=== PATIENT | male | born 1945 | race Caucasian/White ===

== ENCOUNTER → 2017-11-21 07:15 | Outpatient (CLI) | payer MEDICARE, OTHER, SELFPAY ==
--- NOTE | 2017-11-21 07:37 | MRI_ITS ---
STUDY: MRI RIGHT SHOULDER REASON FOR EXAM: Male, 72 years old. Pain TECHNIQUE: Standardized fat and water weighted pulse sequences were obtained in all 3 orthogonal planes. COMPARISON: X-ray November 12, 2017 FINDINGS: Full thickness tear of the distal supraspinatus tendon, sagittal series 6 image /. There is infraspinatus tendinosis with tendon thickening, but without a demonstrated tendon tear. There is subscapularis tendinosis with tendon thickening, and partial-thickness humeral surface distal tendon tear, series 3 images 10/20 through 1220. Normal teres minor tendon. Normal supraspinatus muscle. Normal infraspinatus muscle. Normal subscapularis muscle. Normal teres minor muscle. There is a small volume joint effusion of the glenohumeral joint. There is a cortical erosion at the insertion of the infraspinatus tendon. There is spurring of the lesser tuberosity. Normal biceps labral complex. There is tendinosis with thickening of the biceps tendon, and partial thickness tearing, series 3 images 8/20 through 16/20. Blunting of the labrum. Normal capsulo- ligamentous complex. Normal rotator interval. There is moderate osteoarthritis of the acromioclavicular articulations. There is a Type II morphology (curved) acromion, with a neutral orientation. There is moderate fluid distention of the subacromial bursa, consistent with moderate subacromial-subdeltoid bursitis. Normal visualized coracohumeral and coracoacromial ligaments. Normal quadrilateral space. Normal axillary space. Normal deltoid muscle. Normal trapezius muscle. MRI/Upper Ext Joint Only(Routine) IMPRESSION: Rotator cuff tear of the supraspinatus tendon. Tendinosis with partial tearing of the subscapularis. Tendinosis and partial tearing of the long head of the biceps tendon. Electronically Signed: Jesús Su MD at 9:00 EST , Service support ,
== END ==
PROVIDERS: Family Provider Family Medicine; PCP Family Medicine; Visit Provider Orthopaedic Surgery
DX: M75.101 Unspecified rotator cuff tear or rupture of right shoulder, not specified as traumatic (principal)
CPT/HCPCS: 73221

== ENCOUNTER 2017-12-13 06:06 | Emergency (ER) | payer MEDICARE, OTHER, SELFPAY ==
[2017-12-13 06:08] VITALS: BP 105/78; PULSE 73; RESP 16; TEMP 36.6; O2SAT 96; BMI 26.8
[2017-12-13] MEDS: diazePAM 5 MG Tablet PO (06:27)
--- NOTE | 2017-12-13 07:21 | ED.DCSUM_ITS ---
- ER Visit Summary Date of Service: 12/13/17 Chief Complaint: Right ear feels full and dizziness History of Present Illness: The patient is a 72 M with a past medical history of a heart murmur and enlarged prostate. 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 He has never had a stroke or mini stroke. Patient states around midnight he felt like his right ear felt full of fluid and he felt a little dizzy. He denies feeling lightheaded. He denies any visual change. He denies any numbness or tingling to his arms or legs or face. No change in his speech. states that he is acting his baseline. He denies any head trauma. He denies any headache. He has not been ill recently. Physical Examination: Older male no acute distress. Vital signs are stable afebrile. He does not look septic or toxic. H EENT exam right TM does have a small amount of fluid behind the tympanic membrane. Otherwise unremarkable left is unremarkable. Posterior pharynx moist and pink. No facial droop. Normal speech. Pupils round reactive light. Extra motions are intact. Neck nontender. Lungs clear to auscultation bilaterally. Heart regular rhythm with a 4/6 systolic ejection murmur. Abdomen is soft and nontender. Normal bowel sounds without peritoneal signs. He is moving all 4 extremities. They are neurovascularly intact. He has equal symmetrical crawler tractor operator strength. Equal and symmetrical dorsi and plantar flexion. Neurologically is awake and alert. No focal motor deficits. Fingertip to nose heel to rhodes are within normal limits. NIH score is 0. Patient get up out of bed and ambulated. He said when he first gets up and starts to move he feels somewhat dizzy then it resolves. He had no ataxia. Test Results: None Emergency Department Course and Treatment: Patient was given 5 mg p.o. Valium. He was reassessed at 07 15 his symptoms have resolved. His neurologic exam remains normal. He ambulated without any difficulty. Treatment Plan: Discharged. P.o. Valium as needed. Discussed with patient and his and they understand that if you have other symptoms such as a severe headache, ataxia or weakness to return to ER immediately to be reevaluated. Disposition: Discharge Impression: Acute dizziness secondary to vertigo resolved This note was generated with [employer] dictation software. It may contain incorrect words, spelling, and punctuation that were not noted in review of the chart prior to signing ED Disposition - Plan for ED Patient: Chief Complaint: Ear Problem Referrals: Amanuel Fernando MD [Primary Care Provider] -
--- NOTE | 2017-12-13 07:21 | ED.DEP ---
ED Disposition - Plan for ED Patient: Disposition: Home or Assisted Living Chief Complaint: Ear Problem Instructions: ED Vertigo Unspecified Prescriptions: Diazepam [Valium] 5 mg PO Q8H PRN PRN #10 tab PRN Reason: Dizziness Referrals: Amanuel Fernando MD [Primary Care Provider] - 3-5 Days if not improving Additional Instructions: Return to ER if feeling worse or develop weakness or numbness to her extremities or trouble with your speech. Valium if having dizziness that is room spinning. Otherwise you do not need to take it. Call follow-up your primary care physician next week if not totally back to normal.
== END 2017-12-13 07:46 | disposition home or self-care (01) ==
PROVIDERS: Emergency Provider Emergency Medicine; Family Provider Family Medicine; PCP Family Medicine
DX: R42 Dizziness and giddiness (principal); H93.8X1 Other specified disorders of right ear; R01.1 Cardiac murmur, unspecified; N40.0 Benign prostatic hyperplasia without lower urinary tract symptoms; E78.00 Pure hypercholesterolemia, unspecified; Z52.4 Kidney donor; Z90.49 Acquired absence of other specified parts of digestive tract; Z79.899 Other long term (current) drug therapy
CPT/HCPCS: 99282

== ENCOUNTER → 2017-12-14 12:18 | Outpatient (CLI) | payer MEDICARE, OTHER, SELFPAY ==
[2017-12-14 13:49] LABS: Absolute Lymphocyte Count 1.81 X10^3/ul (0.83-4.51); Absolute Neutrophil Count 4.7 X10^3/uL (2.0-7.7); Basophil# 0.05 X10^3/uL; Basophil% 0.7 % (0-1); Eosinophil# 0.31 X10^3/uL; Eosinophils% 4.3 % (0-5); Hematocrit 43.9 % (40-54); Hemoglobin 14.5 g/dl (13.0-16.5); Lymphocyte # 1.81 X10^3/ul (4.0); Lymphocyte % 24.9 % (19-41); Mean Corpuscular Volume 93.8 fL (80-94); Mean Platelet Vol. 9.3 fl (6.2-12.0); Monocyte# 0.38 X10^3/uL; Monocyte% 5.2 % (0-10); Neutrophil # 4.72 X10^3/uL (2.7-7.7); Neutrophil % 64.8 % (47-70); POSITIVE COUNT NO; POSITIVE DIFFERENTIAL NO; POSITIVE MORPHOLOGY NO; Platelet Count 277 K/mm3 (150-450); RBC Distribution Width CV 13.6 % (11.6-14.6); RBC Distribution Width SD 46.5 fl (35.1-43.9); Red Blood Count 4.68 M/mm3 (4.6-6.2); White Blood Count 7.3 K/mm3 (4.4-11.0)
[2017-12-14 14:14] LABS: ALB/GLOB Ratio 0.8 RATIO (0.9-2.4); AST(SGOT) 18 U/L (15-37); Alanine Aminotransfer ALT/SGPT 26 U/L (16-61); Albumin, Serum 3.9 g/dL (3.2-5.0); Alkaline Phosphatase 76 U/L (45-117); Anion Gap 6 (5-15); BUN 14 mg/dL (7-18); BUN/Creat Ratio 9.9 RATIO (10-20); CRP < 2.90 mg/L (0.0-3.0); Calcium,Total 9.6 mg/dL (8.5-10.1); Chloride 109 mmol/L (98-107); Creatinine, Serum 1.42 mg/dL (0.70-1.30); EST Glomerular Filtration Rate 52 mL/min (>60); Est Glom Filt Rate - Afr Amer 63 mL/min (>60); Globulin 4.6 g/dL (2.2-4.2); Glucose 98 mg/dL (74-106); Potassium 4.1 mmol/L (3.5-5.1); Protein, Total 8.5 g/dL (6.4-8.2); Sodium Level 142 mmol/L (136-145); Thyroid Stim Hormone (TSH) 2.05 uIU/mL (0.358-3.74)
== END ==
PROVIDERS: Family Provider Family Medicine; PCP Family Medicine; Visit Provider Family Medicine
DX: R42 Dizziness and giddiness (principal)
CPT/HCPCS: 36415; 80053; 80178; 84443; 85025; 86140

== ENCOUNTER → 2017-12-15 06:48 | Outpatient (CLI) | payer MEDICARE, OTHER, SELFPAY ==
--- NOTE | 2017-12-15 06:50 | CT_ITS ---
STUDY: CT BRAIN WITHOUT CONTRAST REASON FOR EXAM: Male, 72 years old. DISI with double vision x3 days, right ear fullness. RADIATION DOSAGE (If Supplied By Facility): CTDIvol = ( 44.99 ) mGy, DLP = ( 796.11 ) mGycm TECHNIQUE: Transaxial CT imaging of the brain was performed without administration of intravenous contrast material. Multiplanar coronal and sagittal images were reformatted. Individualized dose optimization techniques were used for this CT. COMPARISON: None. FINDINGS: Normal soft tissue structures. Normal calvarium. There is mild cerebral atrophy with widening of the extra-axial spaces and ventricular dilatation. There are areas of decreased attenuation within the white matter tracts of the supratentorial brain, consistent with microvascular disease changes. Normal basal ganglia and thalami. Normal brainstem. There is mild cerebellar atrophy. There is no intracranial hemorrhage. There are no findings of an acute ischemic infarction. Probable retention cyst left maxillary antrum. The bilateral mastoid air cells are clear. Normal ossicles and external auditory canals. Intracranial arteriosclerosis of the carotid arteries. CT/Brain/Head without Contrast IMPRESSION: Chronic involutional changes of the brain. Left maxillary retention cyst suspected. There is no acute intracranial pathology. Electronically Signed: Veronica Carlson MD at 7:18 EST , Service support ,
== END ==
PROVIDERS: Family Provider Family Medicine; PCP Family Medicine; Visit Provider Family Medicine
DX: H53.2 Diplopia (principal)
CPT/HCPCS: 70450

== ENCOUNTER → 2018-01-26 05:42 | Outpatient (CLI) | payer MEDICARE, OTHER, SELFPAY ==
[2017-12-22 13:19] VITALS: BP 119/73; PULSE 72; RESP 16; TEMP 36.8; O2SAT 98; BMI 26.6
--- NOTE | 2017-12-22 13:26 | EKG12_ITS ---
Test Reason : Blood Pressure : / mmHG Vent. Rate : 065 BPM Atrial Rate : 065 BPM P-R Int : 172 ms QRS Dur : 084 ms QT Int : 406 ms P-R-T Axes : 040 -06 033 degrees QTc Int : 422 ms Poor data quality, interpretation may be adversely affected Normal sinus rhythm Normal ECG Confirmed by ANGEL ADAIR, CHARLOTTE ([id number]), makeup editor JESÚS DUARTE ([id number]) on 12/23/2017 1:16:42 PM Referred By: Roland Cunningham Confirmed By:CHARLOTTE ORTIZ MD
== END ==
PROVIDERS: Family Provider Family Medicine; PCP Family Medicine; Visit Provider Orthopaedic Surgery
DX: Z01.818 Encounter for other preprocedural examination (principal)

== ENCOUNTER → 2018-05-12 06:10 | Outpatient (CLI) | payer MEDICARE, OTHER, SELFPAY ==
[2018-05-12 07:12] LABS: Absolute Lymphocyte Count 1.65 X10^3/ul (0.83-4.51); Absolute Neutrophil Count 3.7 X10^3/uL (2.0-7.7); Basophil# 0.05 X10^3/uL; Basophil% 0.8 % (0-1); Eosinophil# 0.47 X10^3/uL; Eosinophils% 7.1 % (0-5); Hemoglobin 12.3 g/dl (13.0-16.5); Lymphocyte # 1.65 X10^3/ul (4.0); Mean Corp Hgb Conc 32.4 g/gl (32-36); Mean Corpuscular Hgb 31.2 pg (27.0-32.0); Mean Corpuscular Volume 96.4 fL (80-94); Mean Platelet Vol. 9.3 fl (6.2-12.0); Monocyte# 0.67 X10^3/uL; Monocyte% 10.2 % (0-10); Neutrophil # 3.74 X10^3/uL (2.7-7.7); Neutrophil % 56.7 % (47-70); Platelet Count 283 K/mm3 (150-450); RBC Distribution Width CV 13.6 % (11.6-14.6); RBC Distribution Width SD 48.1 fl (35.1-43.9); Red Blood Count 3.94 M/mm3 (4.6-6.2); White Blood Count 6.6 K/mm3 (4.4-11.0)
[2018-05-12 07:25] LABS: POSITIVE COUNT NO; POSITIVE DIFFERENTIAL NO; POSITIVE MORPHOLOGY NO
[2018-05-12 07:32] LABS: Anion Gap 7 (5-15); BUN 15 mg/dL (7-18); BUN/Creat Ratio 10.6 RATIO (10-20); Calcium,Total 9.3 mg/dL (8.5-10.1); Chloride 111 mmol/L (98-107); Creatinine, Serum 1.42 mg/dL (0.70-1.30); EST Glomerular Filtration Rate 52 mL/min (>60); Est Glom Filt Rate - Afr Amer 63 mL/min (>60); Glucose 114 mg/dL (74-106); Potassium 4.2 mmol/L (3.5-5.1); Sodium Level 143 mmol/L (136-145)
== END ==
PROVIDERS: Family Provider Family Medicine; PCP Family Medicine; Visit Provider Family Medicine
DX: Z01.818 Encounter for other preprocedural examination (principal); Z90.5 Acquired absence of kidney
CPT/HCPCS: 36415; 80048; 85025

== ENCOUNTER → 2018-05-18 12:35 | Outpatient (CLI) | payer MEDICARE, OTHER, SELFPAY ==
[2018-05-18 16:48] LABS: Ferritin 68 ng/mL (26-388); Iron 58 ug/dL (65-175); Iron Binding Capacity,Total 287 ug/dL (250-450)
[2018-05-19 08:37] LABS: Vitamin B12 437 pg/mL (211-911)
== END ==
PROVIDERS: Family Provider Family Medicine; PCP Family Medicine; Visit Provider Family Medicine
DX: D53.9 Nutritional anemia, unspecified (principal)
CPT/HCPCS: 36415; 82607; 82728; 82746; 83540; 83550

== ENCOUNTER → 2018-05-24 07:59 | Outpatient (CLI) | payer MEDICARE, OTHER, SELFPAY ==
[2018-05-24 12:32] LABS: Homocysteine 13.1 umol/L (3.2-10.7)
[2018-05-24 12:43] LABS: Immature Platelet Fraction 1.3 % (1.0-7.9); RET-HE 31.6 pg (30-35); Reticulocyte Count 0.79 % (0.5-1.5)
== END ==
PROVIDERS: Family Provider Family Medicine; PCP Family Medicine; Visit Provider Family Medicine
DX: D53.9 Nutritional anemia, unspecified (principal)
CPT/HCPCS: 36415; 83090; 83921; 85045

== ENCOUNTER 2018-07-14 08:30 | Outpatient (RCR) | payer MEDICARE, OTHER, SELFPAY ==
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
--- NOTE | 2018-08-05 12:44 | HP.PTDCNRP_ITS ---
HP - Discharge Summary (1) - Patient Information GASTON FLETCHER was seen in my office for initial evaluation on 07/12/18. The following Plan of Care was established for this patient: Initial Frequency: 2x /Week Initial Duration: 4-6 Weeks - Anticipated Interventions Patient/Client Instruction: Educate patient on: Condition, Plan of Care, Risk Factors, Benefits of Fitness Program For the Purpose of:: To improve self management Therapeutic Exercise to Include: Strength training, Body mechanics, Postural training, Flexibilty training, Gait and locomotor training, Active ROM, Dynamic Lumbar Stabilization For the Purpose of:: To increase ROM, To improve muscle performance and motor function, To increase tolerance to activity/condition/position, To improve performance and independence with ADL's, To improve ability of physical actions for home/community/work/leisure, To improve gait and locomotor functions Cryotherapy (ice pack, ice massage): Yes Thermo therapy (hot pack): Yes Ultrasound (thermal/non thermal): Yes For the Purpose of:: To decrease pain, To increase ROM, To improve nutrient delivery to tissue This patient was last seen in our office . Pertinent comments regarding their Physical therapy will appear below: This patient has not returned to Physical Therapy and is appropriate to return to MD for further follow-up as needed. At this point I will be discontinuing this patient from physical therapy. I wou ld be happy to see this patient again in the future if found appropriate by the physician. Thank you! Sita Webb
== END 2018-07-14 19:00 | disposition home or self-care (01) ==
LOC: PT 08:30
PROVIDERS: Family Provider Family Medicine; PCP Family Medicine; Visit Provider Orthopaedic Surgery
DX: M51.36 Other intervertebral disc degeneration, lumbar region (principal); R26.89 Other abnormalities of gait and mobility; M54.10 Radiculopathy, site unspecified
CPT/HCPCS: 97162; 97530

== ENCOUNTER → 2018-07-20 06:27 | Outpatient (CLI) | payer MEDICARE, OTHER, SELFPAY | PROVIDERS: Family Provider Family Medicine; PCP Family Medicine; Referring Provider Urology; Visit Provider Urology | DX: R97.20 Elevated prostate specific antigen [PSA] (principal) | CPT/HCPCS: 36415; 84153 ==

== ENCOUNTER → 2018-08-25 06:15 | Outpatient (CLI) | payer MEDICARE, OTHER, SELFPAY ==
[2018-08-25 07:43] LABS: Absolute Lymphocyte Count 1.75 X10^3/ul (0.83-4.51); Absolute Neutrophil Count 3.6 X10^3/uL (2.0-7.7); Basophil% 1.6 % (0-1); Eosinophil# 0.54 X10^3/uL; Eosinophils% 8.5 % (0-5); Hematocrit 40.2 % (40-54); Hemoglobin 12.9 g/dl (13.0-16.5); Lymphocyte # 1.75 X10^3/ul (4.0); Lymphocyte % 27.5 % (19-41); Mean Corp Hgb Conc 32.1 g/gl (32-36); Mean Corpuscular Hgb 30.6 pg (27.0-32.0); Mean Corpuscular Volume 95.3 fL (80-94); Mean Platelet Vol. 9.7 fl (6.2-12.0); Monocyte# 0.39 X10^3/uL; Monocyte% 6.1 % (0-10); Neutrophil # 3.57 X10^3/uL (2.7-7.7); Neutrophil % 56.1 % (47-70); Platelet Count 295 K/mm3 (150-450); RBC Distribution Width CV 13.3 % (11.6-14.6); RBC Distribution Width SD 46.1 fl (35.1-43.9); Red Blood Count 4.22 M/mm3 (4.6-6.2); White Blood Count 6.4 K/mm3 (4.4-11.0)
[2018-08-25 07:45] LABS: POSITIVE COUNT NO; POSITIVE DIFFERENTIAL NO; POSITIVE MORPHOLOGY NO
[2018-08-25 08:20] LABS: AST(SGOT) 19 U/L (15-37); Alanine Aminotransfer ALT/SGPT 21 U/L (16-61); Albumin, Serum 3.6 g/dL (3.2-5.0); Alkaline Phosphatase 71 U/L (45-117); Anion Gap 7 (5-15); BUN 14 mg/dL (7-18); Bilirubin, Direct 0.07 mg/dL (0.00-0.30); Calcium,Total 8.9 mg/dL (8.5-10.1); Chloride 111 mmol/L (98-107); Cholesterol 220 mg/dL (200); EST Glomerular Filtration Rate 53 mL/min (>60); Est Glom Filt Rate - Afr Amer 64 mL/min (>60); Globulin 4.2 g/dL (2.2-4.2); Glucose 91 mg/dL (74-106); High Density Lipoprotein 40 mg/dL; Potassium 4.2 mmol/L (3.5-5.1); Protein, Total 7.8 g/dL (6.4-8.2); Sodium Level 142 mmol/L (136-145); Triglycerides 146 mg/dL; Very Low Density Lipoprotein 29 mg/dL (5-40)
== END ==
PROVIDERS: Family Provider Family Medicine; PCP Family Medicine; Referring Provider Family Medicine; Visit Provider Family Medicine
DX: I65.23 Occlusion and stenosis of bilateral carotid arteries (principal); Z90.5 Acquired absence of kidney; F31.9 Bipolar disorder, unspecified; D53.9 Nutritional anemia, unspecified; E78.00 Pure hypercholesterolemia, unspecified
CPT/HCPCS: 36415; 80048; 80061; 80076; 80178; 85025

== ENCOUNTER 2019-01-28 16:28 | Inpatient (IN) | payer MEDICARE, OTHER, SELFPAY ==
[2019-01-28 16:38] VITALS: BP 103/57; PULSE 93; RESP 18; TEMP 37.1; O2SAT 94
--- NOTE | 2019-01-28 16:38 | PCM.HP.STD ---
Problem List (1) Acute respiratory failure Status: Acute (2) Acute kidney injury Status: Acute (3) Encephalopathy Status: Acute (4) Coronary artery disease Status: Chronic (5) Hypertension Status: Chronic (6) Hyperlipidemia Status: Chronic (7) Peripheral arterial occlusive disease Status: Chronic (8) Chronic kidney disease Status: Chronic (9) Deep venous thrombosis Status: Chronic (10) Pulmonary embolism Status: Chronic (11) Bipolar disorder Status: Chronic (12) Aortic stenosis Status: Chronic (13) Allergic rhinitis Status: Chronic (14) Anemia Status: Chronic (15) BPH (benign prostatic hyperplasia) Status: Chronic (16) GERD (gastroesophageal reflux disease) Status: Chronic History of Present Illness Date of Admission: 01/28/19 Chief Complaint: Here for rehabilitation, strengthening, prior to disposition determination. The patient is a 73 year old Male with below past medical history underwent aortic valve replacement for aortic stenosis at [facility] 09/23/2019. Postoperative course complicated by circulatory shock. 09/29/2018 Admitted for change in mental status, elevated WBC, nephrogenic diabetes. He had episodes of hypotension secondary to sepsis, and was monitored in cardiovascular ICU. He had respiratory distress, requiring intubation, ventilation. 11/08/2018 Bronchoscopy, tracheostomy afterwards. Patient was on multiple antipsychotic medications including lithium for bipolar disorder, these medications were withdrawn, and his mental status improved. Weaning of tracheostomy began, and he tolerated capping. Renal function improved, he is status post nephrectomy, he is solitary kidney. Transaminitis improving, elevated WBC, followed by Infectious Disease. Blood culture grew micrococcus, urine grew Klebsiella. Clostridium difficile NEGATIVE. CT scan of abdomen/pelvis showed diverticulosis, IVC filter in place. CT chest showed air space opacities in both lower lobes. MRI brain showed no focal acute brain ischemia. [place] was stopped due to nephrogenic diabetes insipidus postoperatively. 10/30/2018 Depakote stopped. 11/01/2018 Zyprexa stopped. He has required restraints at times. Tube feeding via [place], complains of dry mouth. Free water flushes, and D5W for hypernatremia. 11/18/2018 Admitted to [facility]. 01/28/2019 Admit to TCU with debility, here for rehabilitation, strengthening, prior to disposition determination. Past Medical History Past Medical History (Chronic Problems): Chronic Problems (Last Updated 01/20/18 @ 15:50 by Lora Mcguire) Coronary artery disease (Chronic) Hypertension (Chronic) Hyperlipidemia (Chronic) Peripheral arterial occlusive disease (Chronic) Chronic kidney disease (Chronic) Deep venous thrombosis (Chronic) Pulmonary embolism (Chronic) Bipolar disorder (Chronic) Aortic stenosis (Chronic) Allergic rhinitis (Chronic) Anemia (Chronic) BPH (benign prostatic hyperplasia) (Chronic) GERD (gastroesophageal reflux disease) (Chronic) Bipolar disorder (Chronic) Dyslipidemia (Chronic) Presence of IVC filter (Chronic) Osteoarthritis (Chronic) History of small bowel obstruction (Chronic) History of DVT (deep vein thrombosis) (Chronic) History of pulmonary embolism (Chronic) Family history of kidney stone (Chronic) Medical History: Medical History (Last Updated 01/20/18 @ 15:50 by Lora Mcguire) Presence of IVC filter (Chronic) Z95.828 Osteoarthritis (Chronic) History of small bowel obstruction (Chronic) Z87.19 History of DVT (deep vein thrombosis) (Chronic) Z86.718 History of pulmonary embolism (Chronic) Z86.711 Family history of kidney stone (Chronic) Cardiac murmur R01.1 GERD (gastroesophageal reflux disease) K21.9 Bipolar 1 disorder F31.9 Hip fracture, left S72.002A Allergies penicillin V Allergy (Mild, Verified 01/20/18 15:55) hives codeine Adverse Reaction (Mild, Verified 01/20/18 15:55) upset stomach pecans Allergy (Mild, Uncoded 12/22/17 12:55) stomach cramps Home Medications: Ambulatory Orders Medication Instructions Recorded Acetaminophen [Tylenol] 01/28/19 Aspirin 01/28/19 Bisacodyl 10 mg RC 01/28/19 Cetirizine HCl 10 mg PO 01/28/19 Clopidogrel Bisulfate [Plavix] 75 mg PO DAILY 01/28/19 Docusate Sodium [Stool Softener] 50 mg PO 01/28/19 Famotidine 01/28/19 Fluticasone Propionate [Flovent 50 mcg IH 01/28/19 Diskus] Guaifenesin Dm [Robitussin Dm] 5 ml PO Q6H PRN PRN 01/28/19 Heparin Injection 01/28/19 Ipratropium/Albuterol Sulfate 01/28/19 [Iprat-Albut 0.5-3(2.5) mg/3 ml] Metoprolol Tartrate 25 mg PO 01/28/19 Nepro Tube Feed [Nepro Carb Steady] 01/28/19 Ondansetron HCl/Pf [Ondansetron 01/28/19 HCl 4 mg/2 ml Syr] Polyvinyl Alcohol [Liquitears] 01/28/19 Surgical History: Surgical History (Last Updated 01/20/18 @ 15:53 by Lora Mcguire) 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 S/P arthroscopy of right knee Z98.890 S/P cataract extraction Z98.49 S/P cholecystectomy Z90.49 Status post arthroscopy of left knee Z98.890 Cataract extraction status of left eye Z98.42 H/O knee surgery Z98.890 bilateral S/P cholecystectomy Z90.49 S/P eye surgery Z98.890 removed right Status post left foot surgery Z98.890 fracture,, had pins but then removed donated kidney left shoulder surgery Surgical History: cataract - Left., cholecystectomy - Laparoscopic., tonsillectomy, - - Aortic Valve Replacement, Nephrectomy, Bilateral carotid artery stents, IVC filter, Bilateral knee arthroscopy, Left foot defect. Psychiatric History: Bipolar Lives: Spouse/ Significant Other Smoking Status: Former smoker Tobacco Use: Non-smoker Alcohol: None Drugs: None - *Family History Maternal Family History: Family History (Last Updated 01/20/18 @ 15:54 by Lora Mcguire) Brother Diabetes Mother Heart disease Sister Heart disease History Items: No pertinent history Paternal Family History: Family History (Last Updated 01/20/18 @ 15:54 by Lora Mcguire) Brother Diabetes Mother Heart disease Sister Heart disease History Items: No pertinent history Review of Systems Constitutional: Denies: Chills, Fever, Weight Change HEENT: Denies: Head Aches, Sinus Congestion, Sinus Drainage Cardiovascular: Denies: Chest Pain, Palpitations Respiratory: Denies: Cough, Shortness of breath at rest, Sputum production Gastrointestinal: Denies: Abdominal Pain, Nausea, Vomiting Genitourinary: Denies: Dysuria Musculoskeletal: Denies: Joint Pain, Joint Tenderness Skin: Denies: Rash, Wounds Neurological: Denies: Numbness, Tingling, Focal weakness Psychiatric: Denies: Anxiety, Depression, Homicidal Ideations, Suicidal Ideations Hematologic/ Lymphatic: Denies: Easy Bruising, Easy Bleeding VTE Information - Inpt Only VTE Present on Admission: No VTE Mechan Device Prophylaxis: Knee High MALATHI Garcia VTE Pharm Prophylaxis ordered?: Yes Patient Problems: Active and Suspected Problems (Last Updated 01/20/18 @ 15:50 by Lora Mcguire) Acute respiratory failure (Acute) Acute kidney injury (Acute) Encephalopathy (Acute) - Physical Exam General: Alert, Oriented x3, Cooperative HEENT: Atraumatic, PERRLA, EOMI, Normocephalic Neck: Supple, No JVD, Negative Carotid Bruits, - - Tracheostomy capped. Lungs: Clear to auscultation, Normal air movement Cardiovascular: Regular rate, No murmurs Abdomen: Bowel Sounds Present, Soft, Non Tender, - - PEG tube, Indwelling farrell catheter. Extremities: No edema, Capillary Refill Less than 3 Seconds Skin: No rashes, No breakdown Musculoskeletal: No Tenderness to Palpation of Joints or Extremities Neurological: Cranial nerves II-XII grossly intact Psych/Mental Status: Normal Affect, Appropriate Assessment/Plan All Active Problems (Last Updated 01/20/18 @ 15:50 by Lora Mcguire) Acute respiratory failure (Acute) Acute kidney injury (Acute) Encephalopathy (Acute) Carotid stenosis, bilateral (Acute) 73 year old male with below past medical history hospitalized 09/23/2019 for aortic valve replacement, complicated postoperative course, admitted to [facility], transferred to TCU with debility, here for rehabilitation, strengthening, prior to disposition determination. Debility - PT/OT. Dysphagia - ST. Pain - Tylenol 650MG Q4H PRN pain. Bowel - Miralax 17GM daily, Colace 100MG BID, Senna 8.6MG BID, Dulcolax 10MG MS daily PRN. Pneumonia vaccination - Administer Prevnar 13 and/or Pneumovax 23 as needed. DVT prophylaxis - Lovenox 40MG SC daily. Coronary Artery Disease - Metoprolol 25MG BID, Plavix 75MG daily, Aspirin 81MG daily. Allergic Rhinitis - Cetirizine 10MG daily, Flonase 1 spray daily. Hypertension - Enalapril 1.25MG IV Q6H PRN systolic blood pressure > 165, Metoprolol 5MG IV Q6H PRN systolic blood pressure > 160. GERD - Famotidine 20MG daily. Cough - Robitussin DM 5ML Q4H PRN. Shortness of breath - Duoneb 3ML Q4H PRN. Dry eyes - Artificial tears 2GTT QID, Lacri lube 1 application OU PRN. Nausea - Zofran 4MG IV Q6H PRN. Hyperparathyroidism - Senispar 90MG BID.
--- NOTE | 2019-01-28 16:44 | HP.PCM_ITS ---
Problem List (1) Acute respiratory failure Status: Acute (2) Acute kidney injury Status: Acute (3) Encephalopathy Status: Acute (4) Coronary artery disease Status: Chronic (5) Hypertension Status: Chronic (6) Hyperlipidemia Status: Chronic (7) Peripheral arterial occlusive disease Status: Chronic (8) Chronic kidney disease Status: Chronic (9) Deep venous thrombosis Status: Chronic (10) Pulmonary embolism Status: Chronic (11) Bipolar disorder Status: Chronic (12) Aortic stenosis Status: Chronic (13) Allergic rhinitis Status: Chronic (14) Anemia Status: Chronic (15) BPH (benign prostatic hyperplasia) Status: Chronic (16) GERD (gastroesophageal reflux disease) Status: Chronic History of Present Illness Date of Admission: 01/28/19 Chief Complaint: Here for rehabilitation, strengthening, prior to disposition determination. The patient is a 73 year old Male with below past medical history underwent aortic valve replacement for aortic stenosis at [facility] 09/23/2019. Postoperative course complicated by circulatory shock. 09/29/2018 Admitted for change in mental status, elevated WBC, nephrogenic diabetes. He had episodes of hypotension secondary to sepsis, and was monitored in cardiovascular ICU. He had respiratory distress, requiring intubation, ventilation. 11/08/2018 Bronchoscopy, tracheostomy afterwards. Patient was on multiple antipsychotic medications including lithium for bipolar disorder, these medications were withdrawn, and his mental status improved. Weaning of tracheostomy began, and he tolerated capping. Renal function improved, he is status post nephrectomy, he is solitary kidney. Transaminitis improving, elevated WBC, followed by Infectious Disease. Blood culture grew micrococcus, urine grew Klebsiella. Clostridium difficile NEGATIVE. CT scan of abdomen/pelvis showed diverticulosis, IVC filter in place. CT chest showed air space opacities in both lower lobes. MRI brain showed no focal acute brain ischemia. [place] was stopped due to nephrogenic diabetes insipidus postoperatively. 10/30/2018 Depakote stopped. 11/01/2018 Zyprexa stopped. He has required restraints at times. Tube feeding via [place], complains of dry mouth. Free water flushes, and D5W for hypernatremia. 11/18/2018 Admitted to [facility]. 01/28/2019 Admit to TCU with debility, here for rehabilitation, strengthening, prior to disposition determination. Past Medical History Past Medical History (Chronic Problems): Chronic Problems (Last Updated 01/20/18 @ 15:50 by Lora Mcguire) Coronary artery disease (Chronic) Hypertension (Chronic) Hyperlipidemia (Chronic) Peripheral arterial occlusive disease (Chronic) Chronic kidney disease (Chronic) Deep venous thrombosis (Chronic) Pulmonary embolism (Chronic) Bipolar disorder (Chronic) Aortic stenosis (Chronic) Allergic rhinitis (Chronic) Anemia (Chronic) BPH (benign prostatic hyperplasia) (Chronic) GERD (gastroesophageal reflux disease) (Chronic) Bipolar disorder (Chronic) Dyslipidemia (Chronic) Presence of IVC filter (Chronic) Osteoarthritis (Chronic) History of small bowel obstruction (Chronic) History of DVT (deep vein thrombosis) (Chronic) History of pulmonary embolism (Chronic) Family history of kidney stone (Chronic) Medical History: Medical History (Last Updated 01/20/18 @ 15:50 by Lora Mcguire) Presence of IVC filter (Chronic) Z95.828 Osteoarthritis (Chronic) History of small bowel obstruction (Chronic) Z87.19 History of DVT (deep vein thrombosis) (Chronic) Z86.718 History of pulmonary embolism (Chronic) Z86.711 Family history of kidney stone (Chronic) Cardiac murmur R01.1 GERD (gastroesophageal reflux disease) K21.9 Bipolar 1 disorder F31.9 Hip fracture, left S72.002A Allergies penicillin V Allergy (Mild, Verified 01/20/18 15:55) hives codeine Adverse Reaction (Mild, Verified 01/20/18 15:55) upset stomach pecans Allergy (Mild, Uncoded 12/22/17 12:55) stomach cramps Home Medications: Ambulatory Orders Medication Instructions Recorded Acetaminophen [Tylenol] 01/28/19 Aspirin 01/28/19 Bisacodyl 10 mg RC 01/28/19 Cetirizine HCl 10 mg PO 01/28/19 Clopidogrel Bisulfate [Plavix] 75 mg PO DAILY 01/28/19 Docusate Sodium [Stool Softener] 50 mg PO 01/28/19 Famotidine 01/28/19 Fluticasone Propionate [Flovent 50 mcg IH 01/28/19 Diskus] Guaifenesin Dm [Robitussin Dm] 5 ml PO Q6H PRN PRN 01/28/19 Heparin Injection 01/28/19 Ipratropium/Albuterol Sulfate 01/28/19 [Iprat-Albut 0.5-3(2.5) mg/3 ml] Metoprolol Tartrate 25 mg PO 01/28/19 Nepro Tube Feed [Nepro Carb Steady] 01/28/19 Ondansetron HCl/Pf [Ondansetron 01/28/19 HCl 4 mg/2 ml Syr] Polyvinyl Alcohol [Liquitears] 01/28/19 Surgical History: Surgical History (Last Updated 01/20/18 @ 15:53 by Lora Mcguire) 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 S/P arthroscopy of right knee Z98.890 S/P cataract extraction Z98.49 S/P cholecystectomy Z90.49 Status post arthroscopy of left knee Z98.890 Cataract extraction status of left eye Z98.42 H/O knee surgery Z98.890 bilateral S/P cholecystectomy Z90.49 S/P eye surgery Z98.890 removed right Status post left foot surgery Z98.890 fracture,, had pins but then removed donated kidney left shoulder surgery Surgical History: cataract - Left., cholecystectomy - Laparoscopic., tonsillectomy, - - Aortic Valve Replacement, Nephrectomy, Bilateral carotid artery stents, IVC filter, Bilateral knee arthroscopy, Left foot defect. Psychiatric History: Bipolar Lives: Spouse/ Significant Other Smoking Status: Former smoker Tobacco Use: Non-smoker Alcohol: None Drugs: None - *Family History Maternal Family History: Family History (Last Updated 01/20/18 @ 15:54 by Lora Mcguire) Brother Diabetes Mother Heart disease Sister Heart disease History Items: No pertinent history Paternal Family History: Family History (Last Updated 01/20/18 @ 15:54 by Lora Mcguire) Brother Diabetes Mother Heart disease Sister Heart disease History Items: No pertinent history Review of Systems Constitutional: Denies: Chills, Fever, Weight Change HEENT: Denies: Head Aches, Sinus Congestion, Sinus Drainage Cardiovascular: Denies: Chest Pain, Palpitations Respiratory: Denies: Cough, Shortness of breath at rest, Sputum production Gastrointestinal: Denies: Abdominal Pain, Nausea, Vomiting Genitourinary: Denies: Dysuria Musculoskeletal: Denies: Joint Pain, Joint Tenderness Skin: Denies: Rash, Wounds Neurological: Denies: Numbness, Tingling, Focal weakness Psychiatric: Denies: Anxiety, Depression, Homicidal Ideations, Suicidal Ideations Hematologic/ Lymphatic: Denies: Easy Bruising, Easy Bleeding VTE Information - Inpt Only VTE Present on Admission: No VTE Mechan Device Prophylaxis: Knee High MALATHI Hose VTE Pharm Prophylaxis ordered?: Yes Patient Problems: Active and Suspected Problems (Last Updated 01/20/18 @ 15:50 by Lora Mcguire) Acute respiratory failure (Acute) Acute kidney injury (Acute) Encephalopathy (Acute) - Physical Exam General: Alert, Oriented x3, Cooperative HEENT: Atraumatic, PERRLA, EOMI, Normocephalic Neck: Supple, No JVD, Negative Carotid Bruits, - - Tracheostomy capped. Lungs: Clear to auscultation, Normal air movement Cardiovascular: Regular rate, No murmurs Abdomen: Bowel Sounds Present, Soft, Non Tender, - - PEG tube, Indwelling farrell catheter. Extremities: No edema, Capillary Refill Less than 3 Seconds Skin: No rashes, No breakdown Musculoskeletal: No Tenderness to Palpation of Joints or Extremities Neurological: Cranial nerves II-XII grossly intact Psych/Mental Status: Normal Affect, Appropriate Assessment/Plan All Active Problems (Last Updated 01/20/18 @ 15:50 by Lora Mcguire) Acute respiratory failure (Acute) Acute kidney injury (Acute) Encephalopathy (Acute) Carotid stenosis, bilateral (Acute) 73 year old male with below past medical history hospitalized 09/23/2019 for aortic valve replacement, complicated postoperative course, [facility], transferred to TCU with debility, here for rehabilitation, strengthening, prior to disposition determination. * Debility - PT/OT. * Dysphagia - ST. * Pain - Tylenol 650MG Q4H PRN pain. * Bowel - Miralax 17GM daily, Colace 100MG BID, Senna 8.6MG BID, Dulcolax 10MG LA daily PRN. * Pneumonia vaccination - Administer Prevnar 13 and/or Pneumovax 23 as needed. * DVT prophylaxis - Lovenox 40MG SC daily. * Coronary Artery Disease - Metoprolol 25MG BID, Plavix 75MG daily, Aspirin 81MG daily. * Allergic Rhinitis - Cetirizine 10MG daily, Flonase 1 spray daily. * Hypertension - Enalapril 1.25MG IV Q6H PRN systolic blood pressure > 165, Metoprolol 5MG IV Q6H PRN systolic blood pressure > 160. * GERD - Famotidine 20MG daily. * Cough - Robitussin DM 5ML Q4H PRN. * Shortness of breath - Duoneb 3ML Q4H PRN. * Dry eyes - Artificial tears 2GTT QID, Lacri lube 1 application OU PRN. * Nausea - Zofran 4MG IV Q6H PRN. * Hyperparathyroidism - Senispar 90MG BID.
--- NOTE | 2019-01-28 19:05 | RAD_ITS ---
STUDY: X-RAY CHEST REASON FOR EXAM: Male, 73 years old. Tracheostomy and respiratory failure TECHNIQUE: Frontal and lateral views of the chest. COMPARISON: None. FINDINGS: Prosthetic heart valve. Sternotomy wires noted. Tracheostomy tube terminates 3.9 cm above the omkar. The lungs are clear and expanded. There is no demonstrated pleural abnormality. Normal size heart. Normal mediastinum and michaelle. Normal visualized pulmonary arteries. Normal visualized aortic arch and descending thoracic aorta. Normal visualized thoracic spine. Normal visualized ribs, clavicles, and shoulders. There is no demonstrated abnormality of the visualized soft tissue structures of the upper abdomen. RAD/Chest PA and Lateral IMPRESSION: Postoperative changes as above. No acute disease. Electronically Signed: Ritchie Juarez MD at 20:58 EDT , Service support ,
[2019-01-28 20:05] VITALS: BMI 23.8
[2019-01-28 20:07] VITALS: BMI 23.9
[2019-01-28] MEDS: guaiFENesin Dm 10 ML UDC 5 ML GT (20:21)
[2019-01-28 20:24] VITALS: PULSE 93
[2019-01-28] MEDS: Loratadine 10 MG Tablet GT (20:24)
[2019-01-28] MEDS: Metoprolol Tartrate 25 MG Tablet GT (20:24)
[2019-01-28] MEDS: Cinacalcet HCl 30 MG Tablet PO (20:25)
[2019-01-28] MEDS: Famotidine 20 MG Tablet GT (20:25)
[2019-01-28] MEDS: Senna Tablet 1 TABLET GT (20:25)
[2019-01-28] MEDS: BMX LIQUID 180 ML PO (20:36)
[2019-01-28] MEDS: Fluticasone 0.05% 1 SPRAY NASAL.SRY NASAL (20:40)
--- NOTE | 2019-01-28 22:44 | NURSING ---
Code status discussed with pt, spouse/POA Heather Velez and daughter Danya Brown in room. Heather Velez requesting pt be DNRCC.
[2019-01-28] MEDS: Docusate Sodium 100 MG/10 ML UDC GT (22:56)
[2019-01-28] MEDS: NEPRO TUBE FEED 1,000 ML 60 ML GT (22:57)
[2019-01-28 23:01] LABS: Bedside Glucose 103 mg/dL (70-110)
[2019-01-29] MEDS: guaiFENesin Dm 10 ML UDC 5 ML GT ×4 (00:33→21:49)
[2019-01-29] MEDS: BMX LIQUID 180 ML PO ×6 (00:43→21:50)
[2019-01-29] MEDS: Cinacalcet HCl 30 MG Tablet PO ×2 (04:39→17:45)
[2019-01-29] MEDS: Senna Tablet 1 TABLET GT ×2 (04:39→17:45)
[2019-01-29] MEDS: Polyethylene Glycol 3350 17 GM PACKET GT (04:39)
[2019-01-29] MEDS: Clopidogrel Bisulfate 75 MG Tablet GT (04:39)
[2019-01-29] MEDS: Docusate Sodium 100 MG/10 ML UDC GT ×2 (04:39→17:43)
[2019-01-29] MEDS: Fluticasone 0.05% 1 SPRAY NASAL.SRY NASAL ×2 (04:39→17:45)
[2019-01-29] MEDS: Famotidine 20 MG Tablet GT ×2 (04:39→17:45)
[2019-01-29 04:46] VITALS: BP 110/70; PULSE 99
[2019-01-29] MEDS: Metoprolol Tartrate 25 MG Tablet GT ×2 (04:46→17:45)
[2019-01-29] MEDS: Enoxaparin 40 MG/0.4 ML Syringe SC (04:47)
[2019-01-29] MEDS: Nystatin Powder 15gm Bottle 1 APPLIC TOPICAL ×2 (05:01→21:55)
[2019-01-29] MEDS: Menthol/Lanolin/Calamine/Znox 113 GM Tube 1 APPLIC TOPICAL ×3 (05:01→21:55)
[2019-01-29 06:06] LABS: Bedside Glucose 109 mg/dL (70-110)
--- NOTE | 2019-01-29 08:00 | NURSING ---
Addendum entered by [place] 01/29/19 22:56: Dr Lira aware, N.O. consult ENT Dr. Roberts. Original Note: Daughter Danya called into unit this Am for update. Daughter informed this nurse pt trach has been capped for 1-2 days prior to TCU admission. Daughter also informed this nurse pt had culture at [facility] revealing pseudomonas. Will update Dr Lira.
[2019-01-29 09:00] LABS: Absolute Lymphocyte Count 1.87 X10^3/ul (0.83-4.51); Absolute Neutrophil Count 4.7 X10^3/uL (2.0-7.7); Basophil# 0.08 X10^3/uL; Eosinophils% 6.4 % (0-5); Hematocrit 36.3 % (40-54); Hemoglobin 11.2 g/dl (13.0-16.5); Lymphocyte # 1.87 X10^3/ul (4.0); Lymphocyte % 23.9 % (19-41); Mean Corp Hgb Conc 30.9 g/gl (32-36); Mean Corpuscular Hgb 31.3 pg (27.0-32.0); Mean Corpuscular Volume 101.4 fL (80-94); Mean Platelet Vol. 11.4 fl (6.2-12.0); Monocyte# 0.59 X10^3/uL; Monocyte% 7.5 % (0-10); Neutrophil # 4.68 X10^3/uL (2.7-7.7); Neutrophil % 59.9 % (47-70); Platelet Count 374 K/mm3 (150-450); RBC Distribution Width CV 16.2 % (11.6-14.6); RBC Distribution Width SD 58.5 fl (35.1-43.9); Red Blood Count 3.58 M/mm3 (4.6-6.2); White Blood Count 7.8 K/mm3 (4.4-11.0)
[2019-01-29 09:04] LABS: POSITIVE COUNT NO; POSITIVE DIFFERENTIAL NO; POSITIVE MORPHOLOGY NO
[2019-01-29] MEDS: Aspirin 81 MG TAB.CHEW GT (09:04)
[2019-01-29 09:14] LABS: Anion Gap 8 (5-15); BUN 57 mg/dL (7-18); BUN/Creat Ratio 34.8 RATIO (10-20); Chloride 113 mmol/L (98-107); Creatinine, Serum 1.64 mg/dL (0.70-1.30); EST Glomerular Filtration Rate 44 mL/min (>60); Est Glom Filt Rate - Afr Amer 53 mL/min (>60); Estimated Creatinine Clearance 38.23 ml/min; Glucose 123 mg/dL (74-106); Potassium 4.2 mmol/L (3.5-5.1); Sodium Level 147 mmol/L (136-145)
--- NOTE | 2019-01-29 10:41 | NURSING ---
Addendum entered by Anne Marie Landers 01/29/19 12:20: stopped tube feed and checked residual of 10cc. Original Note: Pt came frantic to this account underwriter stating pt going to throw up. pt noted to be having coughing spell, did not vomit. Resp notified, deep suctioned pt w/14fr to removed secretions. some secretions removed w/yankur from oral cavity. reported that pt has been having these coughing spells before arriving to this unit from [facility] and [facility]. Will update Dr Lira for consult ENT on Thursday. Trach is capped.
[2019-01-29] MEDS: Tuberculin,Purif.prot.deriv. 50 TU/ML Vial 5 ML ID (10:42)
[2019-01-29] MEDS: Acetaminophen 650 MG/20 ML UDC GT (10:43)
[2019-01-29 11:15] LABS: Bedside Glucose 113 mg/dL (70-110)
[2019-01-29 12:10] VITALS: PULSE 82; RESP 26
--- NOTE | 2019-01-29 14:00 | NURSING ---
Checked PEG residual of 60cc noted. Will cont to monitor. Flushed tube w/120cc sterile water. Daughter at bedside, brought in copies of advance directives. placed in pt chart. Scd's applied to BLE's.
[2019-01-29 16:00] VITALS: BP 103/69; PULSE 94; RESP 18; TEMP 36.8; O2SAT 96
[2019-01-29 17:15] LABS: Bedside Glucose 108 mg/dL (70-110)
[2019-01-29 17:45] VITALS: PULSE 94
--- NOTE | 2019-01-29 18:20 | NURSING ---
PEG residual of 5cc before administration of meds. Pt tolerating well. at bedside. No signs of distress.
[2019-01-29] MEDS: Loratadine 10 MG Tablet GT (21:49)
[2019-01-29] MEDS: NEPRO TUBE FEED 1,000 ML 60 ML GT (22:06)
[2019-01-30 00:06] LABS: Bedside Glucose 133 mg/dL (70-110)
[2019-01-30] MEDS: BMX LIQUID 180 ML PO ×6 (02:50→20:47)
[2019-01-30] MEDS: guaiFENesin Dm 10 ML UDC 5 ML GT ×2 (04:52→20:46)
[2019-01-30] MEDS: Docusate Sodium 100 MG/10 ML UDC GT (04:52)
[2019-01-30] MEDS: Menthol/Lanolin/Calamine/Znox 113 GM Tube 1 APPLIC TOPICAL ×2 (04:53→20:36)
[2019-01-30] MEDS: Clopidogrel Bisulfate 75 MG Tablet GT (04:54)
[2019-01-30] MEDS: Fluticasone 0.05% 1 SPRAY NASAL.SRY NASAL ×2 (04:54→16:55)
[2019-01-30] MEDS: Senna Tablet 1 TABLET GT ×2 (04:54→16:55)
[2019-01-30] MEDS: Polyethylene Glycol 3350 17 GM PACKET GT (04:54)
[2019-01-30] MEDS: Nystatin Powder 15gm Bottle 1 APPLIC TOPICAL ×2 (04:54→20:37)
[2019-01-30] MEDS: Cinacalcet HCl 30 MG Tablet PO ×2 (04:54→16:56)
[2019-01-30] MEDS: Famotidine 20 MG Tablet GT ×2 (04:54→16:55)
[2019-01-30 04:57] VITALS: BP 93/63; PULSE 100
[2019-01-30] MEDS: Metoprolol Tartrate 25 MG Tablet GT ×2 (04:57→16:55)
[2019-01-30] MEDS: Enoxaparin 40 MG/0.4 ML Syringe SC (04:58)
[2019-01-30 06:40] VITALS: O2SAT 96
[2019-01-30 07:11] LABS: Bedside Glucose 131 mg/dL (70-110)
[2019-01-30] MEDS: Aspirin 81 MG TAB.CHEW GT (09:40)
[2019-01-30 11:40] LABS: Bedside Glucose 105 mg/dL (70-110)
--- NOTE | 2019-01-30 13:14 | NURSING ---
Addendum entered by Anne Marie Landers 01/30/19 15:18: rectal suppository given for constipation, last bm 01/26/19. good results. Original Note: Checked PEG residual, 0cc. Pt resting in bed, HOB elevated. family at bedside.
[2019-01-30] MEDS: Bisacodyl 10 MG Suppository RECTAL (13:21)
[2019-01-30 16:00] VITALS: BP 96/70; PULSE 97; RESP 18; TEMP 37; O2SAT 95
[2019-01-30 16:55] VITALS: PULSE 97
[2019-01-30 17:10] LABS: Bedside Glucose 107 mg/dL (70-110)
[2019-01-30] MEDS: NEPRO TUBE FEED 1,000 ML 60 ML GT (20:38)
[2019-01-30] MEDS: Acetaminophen 650 MG/20 ML UDC GT (20:46)
[2019-01-30] MEDS: Loratadine 10 MG Tablet GT (20:47)
[2019-01-31 00:06] LABS: Bedside Glucose 109 mg/dL (70-110)
[2019-01-31] MEDS: BMX LIQUID 180 ML PO ×6 (01:50→22:01)
[2019-01-31] MEDS: Nystatin Powder 15gm Bottle 1 APPLIC TOPICAL ×2 (04:31→22:01)
[2019-01-31] MEDS: Clopidogrel Bisulfate 75 MG Tablet GT (04:31)
[2019-01-31] MEDS: Cinacalcet HCl 30 MG Tablet PO ×2 (04:31→17:11)
[2019-01-31] MEDS: Polyethylene Glycol 3350 17 GM PACKET GT (04:31)
[2019-01-31] MEDS: Menthol/Lanolin/Calamine/Znox 113 GM Tube 1 APPLIC TOPICAL ×2 (04:31→22:01)
[2019-01-31] MEDS: Famotidine 20 MG Tablet GT ×2 (04:31→17:10)
[2019-01-31] MEDS: Senna Tablet 1 TABLET GT ×2 (04:31→17:11)
[2019-01-31 04:32] VITALS: BP 91/62; PULSE 98
[2019-01-31] MEDS: Metoprolol Tartrate 25 MG Tablet GT ×2 (04:32→17:10)
[2019-01-31] MEDS: Docusate Sodium 100 MG/10 ML UDC GT ×2 (04:32→17:10)
[2019-01-31] MEDS: Fluticasone 0.05% 1 SPRAY NASAL.SRY NASAL ×2 (04:34→17:11)
[2019-01-31] MEDS: Enoxaparin 40 MG/0.4 ML Syringe SC (04:35)
[2019-01-31 06:11] LABS: Bedside Glucose 124 mg/dL (70-110)
[2019-01-31 07:05] VITALS: O2SAT 96
[2019-01-31] MEDS: Aspirin 81 MG TAB.CHEW GT (08:47)
[2019-01-31 11:20] LABS: Bedside Glucose 95 mg/dL (70-110)
--- NOTE | 2019-01-31 12:32 | NURSING ---
Dr. Roberts to come see patient Thursday afternoon regarding trach.
--- NOTE | 2019-01-31 14:29 | NURSING ---
New order to D/C farrell catheter and follow farrell discontinuation protocol.
--- NOTE | 2019-01-31 15:35 | NURSING ---
Souza cathter d/c'd per order. Patient tolerated well.
[2019-01-31 15:56] VITALS: BP 120/77; PULSE 104; RESP 20; TEMP 36.9; O2SAT 96
[2019-01-31 17:10] VITALS: BP 120/77; PULSE 104
[2019-01-31] MEDS: NEPRO TUBE FEED 1,000 ML 60 ML GT (17:12)
[2019-01-31 18:16] LABS: Bedside Glucose 81 mg/dL (70-110)
[2019-01-31] MEDS: Loratadine 10 MG Tablet GT (22:00)
[2019-02-01 00:10] LABS: Bedside Glucose 100 mg/dL (70-110)
[2019-02-01] MEDS: BMX LIQUID 180 ML PO ×6 (03:23→20:13)
[2019-02-01] MEDS: Enoxaparin 40 MG/0.4 ML Syringe SC (04:28)
[2019-02-01] MEDS: Famotidine 20 MG Tablet GT ×2 (04:28→16:50)
[2019-02-01] MEDS: Clopidogrel Bisulfate 75 MG Tablet GT (04:28)
[2019-02-01] MEDS: Polyethylene Glycol 3350 17 GM PACKET GT (04:28)
[2019-02-01] MEDS: Senna Tablet 1 TABLET GT ×2 (04:28→16:50)
[2019-02-01] MEDS: Docusate Sodium 100 MG/10 ML UDC GT ×2 (04:28→16:50)
[2019-02-01] MEDS: Cinacalcet HCl 30 MG Tablet PO ×2 (04:28→16:52)
[2019-02-01 04:29] VITALS: BP 91/57; PULSE 99
[2019-02-01] MEDS: Nystatin Powder 15gm Bottle 1 APPLIC TOPICAL ×2 (04:29→20:13)
[2019-02-01] MEDS: Metoprolol Tartrate 25 MG Tablet GT (04:29)
[2019-02-01] MEDS: Menthol/Lanolin/Calamine/Znox 113 GM Tube 1 APPLIC TOPICAL ×2 (04:29→20:12)
[2019-02-01 07:18] VITALS: O2SAT 95
[2019-02-01] MEDS: Aspirin 81 MG TAB.CHEW GT (09:09)
[2019-02-01 09:45] VITALS: PULSE 91; RESP 18; O2SAT 98
[2019-02-01 12:10] LABS: Anion Gap 7 (5-15); BUN 32 mg/dL (7-18); BUN/Creat Ratio 30.5 RATIO (10-20); Calcium,Total 8.7 mg/dL (8.5-10.1); Chloride 108 mmol/L (98-107); Creatinine, Serum 1.05 mg/dL (0.70-1.30); EST Glomerular Filtration Rate 73 mL/min (>60); Est Glom Filt Rate - Afr Amer 89 mL/min (>60); Estimated Creatinine Clearance 59.71 ml/min; Glucose 133 mg/dL (74-106); Potassium 3.7 mmol/L (3.5-5.1); Sodium Level 137 mmol/L (136-145)
[2019-02-01] MEDS: NEPRO TUBE FEED 1,000 ML 60 ML GT (14:24)
[2019-02-01 15:26] VITALS: BP 89/61; PULSE 92; RESP 18; TEMP 38.3; O2SAT 98
[2019-02-01] MEDS: guaiFENesin Dm 10 ML UDC 5 ML GT (16:50)
[2019-02-01 16:51] VITALS: BP 89/61; PULSE 92
[2019-02-01] MEDS: Fluticasone 0.05% 1 SPRAY NASAL.SRY NASAL (16:52)
[2019-02-01] MEDS: Loratadine 10 MG Tablet GT (20:13)
[2019-02-02 00:15] LABS: Bedside Glucose 113 mg/dL (70-110)
[2019-02-02] MEDS: BMX LIQUID 180 ML PO ×6 (02:05→20:26)
[2019-02-02] MEDS: Enoxaparin 40 MG/0.4 ML Syringe SC (04:43)
[2019-02-02] MEDS: Famotidine 20 MG Tablet GT ×2 (04:43→17:29)
[2019-02-02] MEDS: Senna Tablet 1 TABLET GT ×2 (04:43→17:29)
[2019-02-02] MEDS: Docusate Sodium 100 MG/10 ML UDC GT ×2 (04:43→17:29)
[2019-02-02] MEDS: Clopidogrel Bisulfate 75 MG Tablet GT (04:43)
[2019-02-02] MEDS: Cinacalcet HCl 30 MG Tablet PO ×2 (04:43→17:29)
[2019-02-02] MEDS: Fluticasone 0.05% 1 SPRAY NASAL.SRY NASAL ×2 (04:57→17:30)
[2019-02-02 04:58] VITALS: BP 91/61; PULSE 106
[2019-02-02] MEDS: Polyethylene Glycol 3350 17 GM PACKET GT (04:58)
[2019-02-02] MEDS: Metoprolol Tartrate 25 MG Tablet GT ×2 (04:58→17:29)
[2019-02-02] MEDS: Menthol/Lanolin/Calamine/Znox 113 GM Tube 1 APPLIC TOPICAL ×2 (04:58→20:27)
[2019-02-02] MEDS: Nystatin Powder 15gm Bottle 1 APPLIC TOPICAL ×2 (04:58→20:27)
[2019-02-02 06:40] VITALS: O2SAT 91
[2019-02-02 06:41] LABS: Bedside Glucose 122 mg/dL (70-110)
[2019-02-02] MEDS: Aspirin 81 MG TAB.CHEW GT (09:21)
--- NOTE | 2019-02-02 10:15 | CASEMGMT ---
Plan of care meeting held in pt room with pt and present. Pt is receiving PT/OT/ST and progressing. No d/c date set at this time. Ultimate goal of pt and is to return home with assist of . Will continue with treatment plan at this time. SYDNEY Smiley
--- NOTE | 2019-02-02 10:48 | NURSING ---
Pt resting with eyes closed, trach cap intact. camera on per request. Pt has coughing episodes at times and cap will come of trach from pressure during cough.
[2019-02-02] MEDS: NEPRO TUBE FEED 1,000 ML 60 ML GT (11:42)
[2019-02-02 11:46] LABS: Bedside Glucose 111 mg/dL (70-110)
--- NOTE | 2019-02-02 12:04 | NURSING ---
pt turned and repositioned on RT side, incont of urine, changed. New tubing and Nepro hung. no residual noted. Pt trach capped, noted lots of sneezing during care. Cap stayed intact. Call light in reach. bed in low position. PA in place to gown.
--- NOTE | 2019-02-02 13:45 | NURSING ---
pt noted to sound a little moist, offered to suction, removed trach cap and pt coughed up own sputum. used yankur to remove secretions. Pt felt better after that. cap replaced on trach.
[2019-02-02 15:08] VITALS: BP 102/71; PULSE 111; RESP 32; TEMP 36.7; O2SAT 97
[2019-02-02 17:01] LABS: Bedside Glucose 92 mg/dL (70-110)
[2019-02-02 17:29] VITALS: PULSE 111
--- NOTE | 2019-02-02 17:42 | NURSING ---
PEG checked, meds given, 0 residual noted. PT HOB elevated. family at bedside.
[2019-02-02] MEDS: guaiFENesin Dm 10 ML UDC 5 ML GT (20:33)
[2019-02-02] MEDS: Loratadine 10 MG Tablet GT (20:33)
[2019-02-03 00:06] LABS: Bedside Glucose 113 mg/dL (70-110)
[2019-02-03] MEDS: BMX LIQUID 180 ML PO ×4 (01:30→21:23)
[2019-02-03] MEDS: Menthol/Lanolin/Calamine/Znox 113 GM Tube 1 APPLIC TOPICAL ×2 (04:49→21:36)
[2019-02-03] MEDS: Nystatin Powder 15gm Bottle 1 APPLIC TOPICAL ×2 (04:50→21:36)
[2019-02-03] MEDS: Fluticasone 0.05% 1 SPRAY NASAL.SRY NASAL ×2 (04:52→16:59)
[2019-02-03] MEDS: NEPRO TUBE FEED 1,000 ML 60 ML GT (05:29)
[2019-02-03] MEDS: Cinacalcet HCl 30 MG Tablet PO ×2 (05:30→16:58)
[2019-02-03] MEDS: Famotidine 20 MG Tablet GT ×2 (05:30→16:58)
[2019-02-03] MEDS: Clopidogrel Bisulfate 75 MG Tablet GT (05:30)
[2019-02-03] MEDS: Enoxaparin 40 MG/0.4 ML Syringe SC (05:30)
[2019-02-03 05:31] VITALS: BP 100/59; PULSE 114
[2019-02-03] MEDS: Metoprolol Tartrate 25 MG Tablet GT ×2 (05:31→17:02)
[2019-02-03 06:36] LABS: Bedside Glucose 122 mg/dL (70-110)
[2019-02-03] MEDS: Aspirin 81 MG TAB.CHEW GT (08:46)
--- NOTE | 2019-02-03 10:18 | MDS.RN ---
Pain interview for jennifer 02/04/19 completed.
--- NOTE | 2019-02-03 10:36 | NURSING ---
Addendum entered by Anne Marie Arthur Anshul 02/03/19 12:42: new order for ceftriaxone 2gm daily d/t UTI Original Note: Addendum entered by Anne Marie Arthur Anshul 02/03/19 11:15: off unit via bed for CXR now, at side updated on all orders. Original Note: Addendum entered by Anne Marie Arthur Anshul 02/03/19 11:06: Dr Guzmán notified of pt elevated temp, & vitals. new order for Chest xray, UA, CBCD, CMP, blood cultures Original Note: called into pt room by , entered room and found pt had vomited small amt of yellowish/orange matter over front of gown, pt with moist respirations. Deep suctioned trach w/scant amt of thick clear phlegm, pt was able to cough some up as well and suctioned out with yankur. Pt linens & gown changed. new drsg placed around trach site. Tube feed on hold. Checked residual w/0cc noted. Pt had just finished with therapy and being changed after incontinence of urine & stool. will update Dr Guzmán for possible CXR.
[2019-02-03 11:01] VITALS: O2SAT 93
[2019-02-03 11:05] LABS: Bedside Glucose 112 mg/dL (70-110)
[2019-02-03 11:06] VITALS: BP 84/57; PULSE 110; RESP 18; TEMP 38.9; O2SAT 95
--- NOTE | 2019-02-03 11:15 | RAD_ITS ---
STUDY: X-RAY CHEST REASON FOR EXAM: Male, 73 years old. Fever. TECHNIQUE: AP and lateral views of the chest. COMPARISON: Comparison is made with prior study dated January 28, 2019. FINDINGS: A tracheostomy tube is in situ. The tip is at 4 cm proximal to the omkar. Mild increased markings at the right lung base suggestive of right basilar atelectasis. There is no demonstrated pleural abnormality. Sternal cerclage wires are present from a prior sternotomy. The patient is status post mitral valve replacement. Normal mediastinum and michaelle. Normal visualized pulmonary arteries. Normal visualized aortic arch and descending thoracic aorta. There are diffuse degenerative changes of the visualized thoracic spine. Dextroscoliosis. There is degenerative osteoarthritis of the bilateral shoulders. There is no demonstrated abnormality of the visualized soft tissue structures of the upper abdomen. RAD/Chest PA and Lateral IMPRESSION: Mild increased markings at the right lung base suggestive of a linear atelectasis. Electronically Signed: Nigel Jackson, at 11:51 EDT , Service support ,
[2019-02-03] MEDS: Acetaminophen 650 MG/20 ML UDC GT ×2 (11:35→16:57)
[2019-02-03 11:55] LABS: Absolute Lymphocyte Count 1.82 X10^3/ul (0.83-4.51); Absolute Neutrophil Count 20.7 X10^3/uL (2.0-7.7); Basophil# 0.05 X10^3/uL; Basophil% 0.2 % (0-1); Eosinophil# 0.12 X10^3/uL; Eosinophils% 0.5 % (0-5); Hematocrit 32.9 % (40-54); Hemoglobin 10.6 g/dl (13.0-16.5); Lymphocyte # 1.82 X10^3/ul (4.0); Lymphocyte % 7.5 % (19-41); Mean Corp Hgb Conc 32.2 g/gl (32-36); Mean Corpuscular Hgb 31.5 pg (27.0-32.0); Mean Corpuscular Volume 97.6 fL (80-94); Mean Platelet Vol. 10.2 fl (6.2-12.0); Monocyte# 1.63 X10^3/uL; Monocyte% 6.7 % (0-10); Neutrophil # 20.68 X10^3/uL (2.7-7.7); Neutrophil % 84.7 % (47-70); POSITIVE COUNT NO; POSITIVE DIFFERENTIAL YES; POSITIVE MORPHOLOGY YES; Platelet Count 298 K/mm3 (150-450); RBC Distribution Width CV 16.1 % (11.6-14.6); RBC Distribution Width SD 57.7 fl (35.1-43.9); Red Blood Count 3.37 M/mm3 (4.6-6.2); White Blood Count 24.4 K/mm3 (4.4-11.0)
[2019-02-03 11:56] LABS: Differential Indicated SCAN CRITERIA MET
[2019-02-03 12:04] LABS: Mucous, Urine 0 SEEN /hpf (<or=2+); Red Blood Cells-Urine 0 SEEN /hpf (0-5); Squamous Epithelial Cells - UA 0 SEEN /hpf (0-5)
[2019-02-03 12:12] LABS: Color, Urine Yellow (Yellow); Glucose, Dipstick Normal (Normal); Ketone-Dipstick Negative (Negative); Leukocyte Esterase-Dipstick 500 /ul (Negative); Nitrite-Dipstick Positive (Negative); Occult Blood-Urine 250 /ul (Negative); Protein-Dipstick 30 mg/dl (Negative); Urine Bilirubin Dipstick Negative (Negative); Urine Clarity Clear (Clear); Urine Urobilinogen Normal (Normal)
[2019-02-03 12:20] LABS: White Blood Cells 10-25 SEEN /hpf (0-5)
[2019-02-03 12:22] LABS: Bacteria 1+ /hpf (None Seen)
[2019-02-03 12:29] LABS: Differential Comment SCANNED
--- NOTE | 2019-02-03 12:30 | PCM.PN.RX ---
<Abdirashid Barton Sridhar - Last Filed: 02/03/19 12:30> Progress Note - Pharmacy Subjective: [] Objective: Allergies penicillin V Allergy (Mild, Verified 01/20/18 15:55) hives codeine Adverse Reaction (Mild, Verified 01/20/18 15:55) upset stomach divalproex sodium [From Depakote] Adverse Reaction (Verified 01/29/19 01:28) Other Per family, pt became very comatose on medication haloperidol [From Haldol] Adverse Reaction (Verified 01/29/19 01:29) Other Per family, pt became very comatose on medication pecans Allergy (Mild, Uncoded 12/22/17 12:55) stomach cramps Current Medications Generic Name Dose Route Start Last Admin Trade Name Freq PRN Reason Stop Dose Admin Acetaminophen 650 mg 01/28/19 17:46 02/03/19 11:35 Tylenol Liquid GT 650 mg Q4H PRN PRN Administration PAIN Albuterol/Ipratropium 3 ml 01/28/19 17:47 Duoneb INHALATION Q4H PRN PRN SHORTNESS OF BREATH Artificial Tears 2 drop 01/29/19 01:43 02/03/19 11:36 Tears Naturale, Artificial Tears EACH EYE 2 drop 4X/DAY ENDER Administration Aspirin 81 mg 01/29/19 08:00 02/03/19 08:46 Aspirin, Baby GT 81 mg DAILY@0800 ENDER Administration Bisacodyl 10 mg 01/28/19 17:47 01/30/19 13:21 Dulcolax RECTAL 10 mg DAILY PRN PRN Administration Constipation Calamine/Phenol 1 applic 01/29/19 06:00 02/03/19 04:49 Calmoseptine Ointment TOPICAL 1 applicatio 0600,2200 ENDER Administration Protocol Cinacalcet 30 mg 01/28/19 18:00 02/03/19 05:30 Sensipar PO 30 mg BID ENDER Administration Clopidogrel Bisulfate 75 mg 01/29/19 06:00 02/03/19 05:30 Plavix GT 75 mg DAILY ENDER Administration Docusate Sodium 100 mg 01/28/19 18:00 02/03/19 04:51 Colace Syrup GT Not Given BID [facility] Enoxaparin Sodium 40 mg 01/29/19 06:00 02/03/19 05:30 Lovenox SC 40 mg DAILY@0600 ENDER Administration Famotidine 20 mg 01/28/19 18:00 02/03/19 05:30 Pepcid GT 20 mg BID ENDER Administration Fluticasone Propionate 1 spray 01/28/19 18:00 02/03/19 04:52 Flonase Nasal [place] NASAL 1 spray BID ENDER Administration Guaifenesin 5 ml 01/28/19 17:47 02/02/19 20:33 Robitussin Dm GT 5 ml Q4H PRN PRN Administration COUGH Enteral Nutritional Formula 1,000 mls @ 60 mls/hr 01/28/19 18:15 02/03/19 05:29 Nepro Carb Steady GT 60 mls/hr .[id number] ENDER Administration Lidocaine/Diphenhydr/Alum/Mg/Simeth 5 ml 01/28/19 18:00 02/03/19 10:41 PO Not Given Q4 ENDER Loratadine 10 mg 01/28/19 22:00 02/02/19 20:33 Claritin GT 10 mg QHS ENDER Administration Metoprolol Tartrate 25 mg 01/29/19 06:00 02/03/19 05:31 Lopressor (Beta Soila) GT 25 mg BID ENDER Administration Multi-Ingredient Cream 1 applic 01/28/19 17:47 Lacrilube EACH EYE DAILY PRN PRN dryness Nystatin 1 applic 01/29/19 06:00 02/03/19 04:50 Mycostatin Powder TOPICAL 1 applicatio 0600,2200 ENDER Administration Protocol Polyethylene Glycol 17 gm 01/29/19 06:00 02/03/19 04:51 Miralax GT Not Given DAILY [facility] Senna 1 tablet 01/28/19 18:00 02/03/19 04:51 Senokot GT Not Given BID ENDER Tuberculin PPD 5 tu 02/05/19 10:00 Tubersol, Aplisol, Ppd ID 02/05/19 10:01 X1 ONE Problem List (Last Updated 01/20/18 @ 15:50 by Lora Mcguire) Acute respiratory failure (Acute) Acute kidney injury (Acute) Encephalopathy (Acute) Coronary artery disease (Chronic) Hypertension (Chronic) Hyperlipidemia (Chronic) Peripheral arterial occlusive disease (Chronic) Chronic kidney disease (Chronic) Deep venous thrombosis (Chronic) Pulmonary embolism (Chronic) Bipolar disorder (Chronic) Aortic stenosis (Chronic) Allergic rhinitis (Chronic) Anemia (Chronic) BPH (benign prostatic hyperplasia) (Chronic) GERD (gastroesophageal reflux disease) (Chronic) Vital Signs Temp Pulse Resp BP Pulse Ox 102.1 F H 110 H 18 84/57 L 95 02/03/19 11:06 02/03/19 11:06 02/03/19 11:06 02/03/19 11:06 02/03/19 11:06 Oxygen Flow Rate (L/min) 2 Oxygen Delivery Method Nasal Cannula Weight: 71.214 kg Body Mass Index (BMI) 23.8 Sodium 137 mmol/L (136-145) 02/01/19 11:22 Potassium 3.7 mmol/L (3.5-5.1) 02/01/19 11:22 Chloride 108 mmol/L (98-107) H 02/01/19 11:22 Carbon Dioxide 22.0 mmol/L (21.0-32.0) 02/01/19 11:22 Anion Gap 7 (5-15) 02/01/19 11:22 BUN 32 mg/dL (7-18) H 02/01/19 11:22 Creatinine 1.05 mg/dL (0.70-1.30) 02/01/19 11:22 Est GFR (MDRD) Af Amer 89 mL/min (>60) 02/01/19 11:22 Est GFR (MDRD) Non-Af 73 mL/min (>60) 02/01/19 11:22 BUN/Creatinine Ratio 30.5 RATIO (10-20) H 02/01/19 11:22 Glucose 133 mg/dL (74-106) H 02/01/19 11:22 Assessment/Plan: 1) Pain BMX, APAP for pain. Continue to monitor prn medication use, daily pain scores. 2) CAD ASA, clopidogrel, metoprolol. Continue to monitor BP/HR, for chest pain. 3) Pulm Duoneb aerosols prn, guaifenesin DM prn, loratadine. Continue to monitor prn medication use, for shortness of breath. 4) GI Famotidine. Continue to monitor s/s GI distress. 5) DVT PPx Enoxaparin. Continue to monitor s/s bleeding/clot. 6) Hyperparathyroidism Cinacalcet. Continue to monitor clinically. Psychotropic Medications: None Unnecessary Medications: None Bowel Regimen: 7) Senna, PEG, docusate, prn bisacodyl. Continue to monitor prn medication use, for constipation/diarrhea. Date of Note:: 02/03/19 - Provider Comments Provider responsibility: Provider responsible to enter orders to implement recommendations <Carlos Lira Chi - Last Filed: 02/03/19 19:36> Progress Note - Pharmacy Subjective: [] Objective: Allergies penicillin V Allergy (Mild, Verified 01/20/18 15:55) hives codeine Adverse Reaction (Mild, Verified 01/20/18 15:55) upset stomach divalproex sodium [From Depakote] Adverse Reaction (Verified 01/29/19 01:28) Other Per family, pt became very comatose on medication haloperidol [From Haldol] Adverse Reaction (Verified 01/29/19 01:29) Other Per family, pt became very comatose on medication pecans Allergy (Mild, Uncoded 12/22/17 12:55) stomach cramps Current Medications Generic Name Dose Route Start Last Admin Trade Name Freq PRN Reason Stop Dose Admin Acetaminophen 650 mg 01/28/19 17:46 02/03/19 16:57 Tylenol Liquid GT 650 mg Q4H PRN PRN Administration PAIN Albuterol/Ipratropium 3 ml 01/28/19 17:47 Duoneb INHALATION Q4H PRN PRN SHORTNESS OF BREATH Artificial Tears 2 drop 01/29/19 01:43 02/03/19 17:01 Tears Naturale, Artificial Tears EACH EYE 2 drop 4X/DAY ENDER Administration Aspirin 81 mg 01/29/19 08:00 02/03/19 08:46 Aspirin, Baby GT 81 mg DAILY@0800 ENDER Administration Bisacodyl 10 mg 01/28/19 17:47 01/30/19 13:21 Dulcolax RECTAL 10 mg DAILY PRN PRN Administration Constipation Calamine/Phenol 1 applic 01/29/19 06:00 02/03/19 04:49 Calmoseptine Ointment TOPICAL 1 applicatio 0600,2200 ENDER Administration Protocol Cinacalcet 30 mg 01/28/19 18:00 02/03/19 16:58 Sensipar PO 30 mg BID ENDER Administration Clopidogrel Bisulfate 75 mg 01/29/19 06:00 02/03/19 05:30 Plavix GT 75 mg DAILY ENDER Administration Docusate Sodium 100 mg 01/28/19 18:00 02/03/19 16:57 Colace Syrup GT 100 mg BID ENDER Administration Enoxaparin Sodium 40 mg 01/29/19 06:00 02/03/19 05:30 Lovenox SC 40 mg DAILY@0600 ENDER Administration Famotidine 20 mg 01/28/19 18:00 02/03/19 16:58 Pepcid GT 20 mg BID ENDER Administration Fluticasone Propionate 1 spray 01/28/19 18:00 02/03/19 16:59 Flonase Nasal [place] NASAL 1 spray BID ENDER Administration Guaifenesin 5 ml 01/28/19 17:47 02/02/19 20:33 Robitussin Dm GT 5 ml Q4H PRN PRN Administration COUGH Enteral Nutritional Formula 1,000 mls @ 60 mls/hr 01/28/19 18:15 02/03/19 05:29 Nepro Carb Steady GT 60 mls/hr .[id number] ENDER Administration Ceftriaxone Sodium 2 gm/ 50 mls @ 100 mls/hr 02/03/19 13:30 02/03/19 13:41 Sodium Chloride IV 100 mls/hr Q24 ENDER Administration Sodium Chloride 250 mls @ 15 mls/hr 02/03/19 12:55 02/03/19 13:41 IV 15 mls/hr .[id number] PRN Administration SALINE FLUSH Lidocaine/Diphenhydr/Alum/Mg/Simeth 5 ml 01/28/19 18:00 02/03/19 16:57 PO 5 ml Q4 ENDER Administration Loratadine 10 mg 01/28/19 22:00 02/02/19 20:33 Claritin GT 10 mg QHS ENDER Administration Metoprolol Tartrate 25 mg 01/29/19 06:00 02/03/19 17:02 Lopressor (Beta Soila) GT 25 mg BID ENDER Administration Multi-Ingredient Cream 1 applic 01/28/19 17:47 Lacrilube EACH EYE DAILY PRN PRN dryness Nystatin 1 applic 01/29/19 06:00 02/03/19 04:50 Mycostatin Powder TOPICAL 1 applicatio 0600,2200 ENDER Administration Protocol Polyethylene Glycol 17 gm 01/29/19 06:00 02/03/19 04:51 Miralax GT Not Given DAILY ENDER Senna 1 tablet 01/28/19 18:00 02/03/19 16:58 Senokot GT 1 tablet BID ENDER Administration Sodium Chloride 5 - 15 ml 02/03/19 12:55 IV UD PRN SALINE FLUSH Tuberculin PPD 5 tu 02/05/19 10:00 Tubersol, Aplisol, Ppd ID 02/05/19 10:01 X1 ONE Problem List (Last Updated 01/20/18 @ 15:50 by Lora Mcguire) Acute respiratory failure (Acute) Acute kidney injury (Acute) Encephalopathy (Acute) Coronary artery disease (Chronic) Hypertension (Chronic) Hyperlipidemia (Chronic) Peripheral arterial occlusive disease (Chronic) Chronic kidney disease (Chronic) Deep venous thrombosis (Chronic) Pulmonary embolism (Chronic) Bipolar disorder (Chronic) Aortic stenosis (Chronic) Allergic rhinitis (Chronic) Anemia (Chronic) BPH (benign prostatic hyperplasia) (Chronic) GERD (gastroesophageal reflux disease) (Chronic) Vital Signs Temp Pulse Resp BP Pulse Ox 99.2 F H 105 H 20 H 93/55 L 1 02/03/19 15:19 02/03/19 17:02 02/03/19 15:19 02/03/19 17:02 02/03/19 15:19 Oxygen Flow Rate (L/min) 2 Oxygen Delivery Method Room Air Weight: 71.214 kg Body Mass Index (BMI) 23.8 Sodium 136 mmol/L (136-145) 02/03/19 11:45 Potassium 3.9 mmol/L (3.5-5.1) 02/03/19 11:45 Chloride 104 mmol/L (98-107) 02/03/19 11:45 Carbon Dioxide 24.0 mmol/L (21.0-32.0) 02/03/19 11:45 Anion Gap 8 (5-15) 02/03/19 11:45 BUN 48 mg/dL (7-18) H 02/03/19 11:45 Creatinine 1.61 mg/dL (0.70-1.30) H 02/03/19 11:45 Est GFR (MDRD) Af Amer 54 mL/min (>60) L 02/03/19 11:45 Est GFR (MDRD) Non-Af 45 mL/min (>60) L 02/03/19 11:45 BUN/Creatinine Ratio 29.8 RATIO (10-20) H 02/03/19 11:45 Glucose 103 mg/dL (74-106) 02/03/19 11:45 Assessment/Plan: Psychotropic Medications: Unnecessary Medications: Bowel Regimen: - Provider Comments Provider responsibility: Provider responsible to enter orders to implement recommendations Provider Comments to Recommendations by Pharmacy: Agree
[2019-02-03 12:32] LABS: ALB/GLOB Ratio 0.5 RATIO (0.9-2.4); AST(SGOT) 24 U/L (15-37); Alanine Aminotransfer ALT/SGPT 26 U/L (16-61); Albumin, Serum 2.6 g/dL (3.2-5.0); Alkaline Phosphatase 107 U/L (45-117); Anion Gap 8 (5-15); BUN 48 mg/dL (7-18); BUN/Creat Ratio 29.8 RATIO (10-20); Calcium,Total 8.9 mg/dL (8.5-10.1); Chloride 104 mmol/L (98-107); Creatinine, Serum 1.61 mg/dL (0.70-1.30); EST Glomerular Filtration Rate 45 mL/min (>60); Est Glom Filt Rate - Afr Amer 54 mL/min (>60); Estimated Creatinine Clearance 38.94 ml/min; Globulin 4.9 g/dL (2.2-4.2); Glucose 103 mg/dL (74-106); Potassium 3.9 mmol/L (3.5-5.1); Protein, Total 7.5 g/dL (6.4-8.2); Sodium Level 136 mmol/L (136-145)
--- NOTE | 2019-02-03 13:16 | PHA.CONS_ITS ---
<Abdirashid Barton Sridhar - Last Filed: 02/03/19 12:30> Progress Note - Pharmacy Subjective: [] Objective: Allergies penicillin V Allergy (Mild, Verified 01/20/18 15:55) hives codeine Adverse Reaction (Mild, Verified 01/20/18 15:55) upset stomach divalproex sodium [From Depakote] Adverse Reaction (Verified 01/29/19 01:28) Other Per family, pt became very comatose on medication haloperidol [From Haldol] Adverse Reaction (Verified 01/29/19 01:29) Other Per family, pt became very comatose on medication pecans Allergy (Mild, Uncoded 12/22/17 12:55) stomach cramps Current Medications Generic Name Dose Route Start Last Admin Trade Name Freq PRN Reason Stop Dose Admin Acetaminophen 650 mg 01/28/19 17:46 02/03/19 11:35 Tylenol Liquid GT 650 mg Q4H PRN PRN Administration PAIN Albuterol/Ipratropium 3 ml 01/28/19 17:47 Duoneb INHALATION Q4H PRN PRN SHORTNESS OF BREATH Artificial Tears 2 drop 01/29/19 01:43 02/03/19 11:36 Tears Naturale, Artificial Tears EACH EYE 2 drop 4X/DAY ENDER Administration Aspirin 81 mg 01/29/19 08:00 02/03/19 08:46 Aspirin, Baby GT 81 mg DAILY@0800 ENDER Administration Bisacodyl 10 mg 01/28/19 17:47 01/30/19 13:21 Dulcolax RECTAL 10 mg DAILY PRN PRN Administration Constipation Calamine/Phenol 1 applic 01/29/19 06:00 02/03/19 04:49 Calmoseptine Ointment TOPICAL 1 applicatio 0600,2200 ENDER Administration Protocol Cinacalcet 30 mg 01/28/19 18:00 02/03/19 05:30 Sensipar PO 30 mg BID ENDER Administration Clopidogrel Bisulfate 75 mg 01/29/19 06:00 02/03/19 05:30 Plavix GT 75 mg DAILY ENDER Administration Docusate Sodium 100 mg 01/28/19 18:00 02/03/19 04:51 Colace Syrup GT Not Given BID [facility] Enoxaparin Sodium 40 mg 01/29/19 06:00 02/03/19 05:30 Lovenox SC 40 mg DAILY@0600 ENDER Administration Famotidine 20 mg 01/28/19 18:00 02/03/19 05:30 Pepcid GT 20 mg BID ENDER Administration Fluticasone Propionate 1 spray 01/28/19 18:00 02/03/19 04:52 Flonase Nasal [place] NASAL 1 spray BID ENDER Administration Guaifenesin 5 ml 01/28/19 17:47 02/02/19 20:33 Robitussin Dm GT 5 ml Q4H PRN PRN Administration COUGH Enteral Nutritional Formula 1,000 mls @ 60 mls/hr 01/28/19 18:15 02/03/19 05:29 Nepro Carb Steady GT 60 mls/hr .[id number] ENDER Administration Lidocaine/Diphenhydr/Alum/Mg/Simeth 5 ml 01/28/19 18:00 02/03/19 10:41 PO Not Given Q4 ENDER Loratadine 10 mg 01/28/19 22:00 02/02/19 20:33 Claritin GT 10 mg QHS ENDER Administration Metoprolol Tartrate 25 mg 01/29/19 06:00 02/03/19 05:31 Lopressor (Beta Soila) GT 25 mg BID ENDER Administration Multi-Ingredient Cream 1 applic 01/28/19 17:47 Lacrilube EACH EYE DAILY PRN PRN dryness Nystatin 1 applic 01/29/19 06:00 02/03/19 04:50 Mycostatin Powder TOPICAL 1 applicatio 0600,2200 ENDER Administration Protocol Polyethylene Glycol 17 gm 01/29/19 06:00 02/03/19 04:51 Miralax GT Not Given DAILY [facility] Senna 1 tablet 01/28/19 18:00 02/03/19 04:51 Senokot GT Not Given BID ENDER Tuberculin PPD 5 tu 02/05/19 10:00 Tubersol, Aplisol, Ppd ID 02/05/19 10:01 X1 ONE Problem List (Last Updated 01/20/18 @ 15:50 by Lora Mcguire) Acute respiratory failure (Acute) Acute kidney injury (Acute) Encephalopathy (Acute) Coronary artery disease (Chronic) Hypertension (Chronic) Hyperlipidemia (Chronic) Peripheral arterial occlusive disease (Chronic) Chronic kidney disease (Chronic) Deep venous thrombosis (Chronic) Pulmonary embolism (Chronic) Bipolar disorder (Chronic) Aortic stenosis (Chronic) Allergic rhinitis (Chronic) Anemia (Chronic) BPH (benign prostatic hyperplasia) (Chronic) GERD (gastroesophageal reflux disease) (Chronic) Vital Signs Temp Pulse Resp BP Pulse Ox 102.1 F H 110 H 18 84/57 L 95 02/03/19 11:06 02/03/19 11:06 02/03/19 11:06 02/03/19 11:06 02/03/19 11:06 Oxygen Flow Rate (L/min) 2 Oxygen Delivery Method Nasal Cannula Weight: 71.214 kg Body Mass Index (BMI) 23.8 Sodium 137 mmol/L (136-145) 02/01/19 11:22 Potassium 3.7 mmol/L (3.5-5.1) 02/01/19 11:22 Chloride 108 mmol/L (98-107) H 02/01/19 11:22 Carbon Dioxide 22.0 mmol/L (21.0-32.0) 02/01/19 11:22 Anion Gap 7 (5-15) 02/01/19 11:22 BUN 32 mg/dL (7-18) H 02/01/19 11:22 Creatinine 1.05 mg/dL (0.70-1.30) 02/01/19 11:22 Est GFR (MDRD) Af Amer 89 mL/min (>60) 02/01/19 11:22 Est GFR (MDRD) Non-Af 73 mL/min (>60) 02/01/19 11:22 BUN/Creatinine Ratio 30.5 RATIO (10-20) H 02/01/19 11:22 Glucose 133 mg/dL (74-106) H 02/01/19 11:22 Assessment/Plan: 1) Pain BMX, APAP for pain. Continue to monitor prn medication use, daily pain scores. 2) CAD ASA, clopidogrel, metoprolol. Continue to monitor BP/HR, for chest pain. 3) Pulm Duoneb aerosols prn, guaifenesin DM prn, loratadine. Continue to monitor prn medication use, for shortness of breath. 4) GI Famotidine. Continue to monitor s/s GI distress. 5) DVT PPx Enoxaparin. Continue to monitor s/s bleeding/clot. 6) Hyperparathyroidism Cinacalcet. Continue to monitor clinically. Psychotropic Medications: None Unnecessary Medications: None Bowel Regimen: 7) Senna, PEG, docusate, prn bisacodyl. Continue to monitor prn medication use, for constipation/diarrhea. Date of Note:: 02/03/19 - Provider Comments Provider responsibility: Provider responsible to enter orders to implement recommendations <Carlos Lira Chi - Last Filed: 02/03/19 19:36> Progress Note - Pharmacy Subjective: [] Objective: Allergies penicillin V Allergy (Mild, Verified 01/20/18 15:55) hives codeine Adverse Reaction (Mild, Verified 01/20/18 15:55) upset stomach divalproex sodium [From Depakote] Adverse Reaction (Verified 01/29/19 01:28) Other Per family, pt became very comatose on medication haloperidol [From Haldol] Adverse Reaction (Verified 01/29/19 01:29) Other Per family, pt became very comatose on medication pecans Allergy (Mild, Uncoded 12/22/17 12:55) stomach cramps Current Medications Generic Name Dose Route Start Last Admin Trade Name Freq PRN Reason Stop Dose Admin Acetaminophen 650 mg 01/28/19 17:46 02/03/19 16:57 Tylenol Liquid GT 650 mg Q4H PRN PRN Administration PAIN Albuterol/Ipratropium 3 ml 01/28/19 17:47 Duoneb INHALATION Q4H PRN PRN SHORTNESS OF BREATH Artificial Tears 2 drop 01/29/19 01:43 02/03/19 17:01 Tears Naturale, Artificial Tears EACH EYE 2 drop 4X/DAY ENDER Administration Aspirin 81 mg 01/29/19 08:00 02/03/19 08:46 Aspirin, Baby GT 81 mg DAILY@0800 ENDER Administration Bisacodyl 10 mg 01/28/19 17:47 01/30/19 13:21 Dulcolax RECTAL 10 mg DAILY PRN PRN Administration Constipation Calamine/Phenol 1 applic 01/29/19 06:00 02/03/19 04:49 Calmoseptine Ointment TOPICAL 1 applicatio 0600,2200 ENDER Administration Protocol Cinacalcet 30 mg 01/28/19 18:00 02/03/19 16:58 Sensipar PO 30 mg BID ENDER Administration Clopidogrel Bisulfate 75 mg 01/29/19 06:00 02/03/19 05:30 Plavix GT 75 mg DAILY ENDER Administration Docusate Sodium 100 mg 01/28/19 18:00 02/03/19 16:57 Colace Syrup GT 100 mg BID ENDER Administration Enoxaparin Sodium 40 mg 01/29/19 06:00 02/03/19 05:30 Lovenox SC 40 mg DAILY@0600 ENDER Administration Famotidine 20 mg 01/28/19 18:00 02/03/19 16:58 Pepcid GT 20 mg BID ENDER Administration Fluticasone Propionate 1 spray 01/28/19 18:00 02/03/19 16:59 Flonase Nasal [place] NASAL 1 spray BID ENDER Administration Guaifenesin 5 ml 01/28/19 17:47 02/02/19 20:33 Robitussin Dm GT 5 ml Q4H PRN PRN Administration COUGH Enteral Nutritional Formula 1,000 mls @ 60 mls/hr 01/28/19 18:15 02/03/19 0 5:29 Nepro Carb Steady GT 60 mls/hr .[id number] ENDER Administration Ceftriaxone Sodium 2 gm/ 50 mls @ 100 mls/hr 02/03/19 13:30 02/03/19 13:41 Sodium Chloride IV 100 mls/hr Q24 ENDER Administration Sodium Chloride 250 mls @ 15 mls/hr 02/03/19 12:55 02/03/19 13:41 IV 15 mls/hr .[id number] PRN Administration SALINE FLUSH Lidocaine/Diphenhydr/Alum/Mg/Simeth 5 ml 01/28/19 18:00 02/03/19 16:57 PO 5 ml Q4 ENDER Administration Loratadine 10 mg 01/28/19 22:00 02/02/19 20:33 Claritin GT 10 mg QHS ENDER Administration Metoprolol Tartrate 25 mg 01/29/19 06:00 02/03/19 17:02 Lopressor (Beta Soila) GT 25 mg BID ENDER Administration Multi-Ingredient Cream 1 applic 01/28/19 17:47 Lacrilube EACH EYE DAILY PRN PRN dryness Nystatin 1 applic 01/29/19 06:00 02/03/19 04:50 Mycostatin Powder TOPICAL 1 applicatio 0600,2200 ENDER Administration Protocol Polyethylene Glycol 17 gm 01/29/19 06:00 02/03/19 04:51 Miralax GT Not Given DAILY ENDER Senna 1 tablet 01/28/19 18:00 02/03/19 16:58 Senokot GT 1 tablet BID ENDER Administration Sodium Chloride 5 - 15 ml 02/03/19 12:55 IV UD PRN SALINE FLUSH Tuberculin PPD 5 tu 02/05/19 10:00 Tubersol, Aplisol, Ppd ID 02/05/19 10:01 X1 ONE Problem List (Last Updated 01/20/18 @ 15:50 by Lora Mcguire) Acute respiratory failure (Acute) Acute kidney injury (Acute) Encephalopathy (Acute) Coronary artery disease (Chronic) Hypertension (Chronic) Hyperlipidemia (Chronic) Peripheral arterial occlusive disease (Chronic) Chronic kidney disease (Chronic) Deep venous thrombosis (Chronic) Pulmonary embolism (Chronic) Bipolar disorder (Chronic) Aortic stenosis (Chronic) Allergic rhinitis (Chronic) Anemia (Chronic) BPH (benign prostatic hyperplasia) (Chronic) GERD (gastroesophageal reflux disease) (Chronic) Vital Signs Temp Pulse Resp BP Pulse Ox 99.2 F H 105 H 20 H 93/55 L 1 02/03/19 15:19 02/03/19 17:02 02/03/19 15:19 02/03/19 17:02 02/03/19 15:19 Oxygen Flow Rate (L/min) 2 Oxygen Delivery Method Room Air Weight: 71.214 kg Body Mass Index (BMI) 23.8 Sodium 136 mmol/L (136-145) 02/03/19 11:45 Potassium 3.9 mmol/L (3.5-5.1) 02/03/19 11:45 Chloride 104 mmol/L (98-107) 02/03/19 11:45 Carbon Dioxide 24.0 mmol/L (21.0-32.0) 02/03/19 11:45 Anion Gap 8 (5-15) 02/03/19 11:45 BUN 48 mg/dL (7-18) H 02/03/19 11:45 Creatinine 1.61 mg/dL (0.70-1.30) H 02/03/19 11:45 Est GFR (MDRD) Af Amer 54 mL/min (>60) L 02/03/19 11:45 Est GFR (MDRD) Non-Af 45 mL/min (>60) L 02/03/19 11:45 BUN/Creatinine Ratio 29.8 RATIO (10-20) H 02/03/19 11:45 Glucose 103 mg/dL (74-106) 02/03/19 11:45 Assessment/Plan: Psychotropic Medications: Unnecessary Medications: Bowel Regimen: - Provider Comments Provider responsibility: Provider responsible to enter orders to implement recommendations Provider Comments to Recommendations by Pharmacy: Agree
[2019-02-03] MEDS: 0.9% NaCl IVPB Med Flush (250 mL) 15 ML IV (13:41)
[2019-02-03 14:18] VITALS: RESP 18; TEMP 37.4; O2SAT 97
--- NOTE | 2019-02-03 14:36 | NURSING ---
restarted tube feed as ordered. Pt not nauseaous since stomach had time to rest. at bedside. Did not swab mouth d/t sensitive gag reflex and per request. pt received first dose of IV ceftriaxone. resting quietly in bed
[2019-02-03 15:19] VITALS: BP 90/43; PULSE 102; RESP 20; TEMP 37.3; O2SAT 1
[2019-02-03] MEDS: Docusate Sodium 100 MG/10 ML UDC GT (16:57)
[2019-02-03] MEDS: Senna Tablet 1 TABLET GT (16:58)
[2019-02-03 17:00] LABS: Bedside Glucose 104 mg/dL (70-110)
[2019-02-03 17:02] VITALS: BP 93/55; PULSE 105
--- NOTE | 2019-02-03 20:27 | PN_ITS ---
Subjective: Development of fever over the last 24 hours Vitals/I&O's: Vital Signs Temp Pulse Resp BP Pulse Ox 99.2 F H 105 H 20 H 93/55 L 1 02/03/19 15:19 02/03/19 17:02 02/03/19 15:19 02/03/19 17:02 02/03/19 15:19 Oxygen Flow Rate (L/min) 2 Oxygen Delivery Method Room Air Weight: 71.214 kg Body Mass Index (BMI) 23.8 Intake and Output for Last 24 Hours 02/01/19 02/02/19 02/03/19 23:59 23:59 23:59 Intake Total 3598 / 3598 3292 / 3292 1537 / 1537 Output Total 1125 / 1125 Balance 2473 / 2473 3292 / 3292 1537 / 1537 Laboratory Results 02/02/19 23:56: POC Glucose 113 H 02/03/19 05:57: POC Glucose 122 H 02/03/19 10:55: POC Glucose 112 H 02/03/19 11:45: WBC 24.4 H, RBC 3.37 L, Hgb 10.6 L, Hct 32.9 L, MCV 97.6 H, MCH 31.5, MCHC 32.2, RDW 16.1 H, RDW Differential 57.7 H, Plt Count 298, MPV 10.2, Immature Gran % (Auto) 0.400, Neut % (Auto) 84.7 H, Lymph % (Auto) 7.5 L, [place] % (Auto) 6.7, Eos % (Auto) 0.5, Baso % (Auto) 0.2, Absolute Neuts (auto) 20.7 H, Absolute Lymphs (auto) 1.82, Total Counted Not Reportable, Differential Comment SCANNED 02/03/19 11:45: Sodium 136, Potassium 3.9, Chloride 104, Carbon Dioxide 24.0, Anion Gap 8, BUN 48 H, Creatinine 1.61 H, Estim Creat Clear Calc 38.94, Est GFR (MDRD) Af Amer 54 L, Est GFR (MDRD) Non-Af 45 L, BUN/Creatinine Ratio 29.8 H, Glucose 103, Calcium 8.9, Total Bilirubin 0.20, AST 24, ALT 26, Alkaline Phosphatase 107, Total Protein 7.5, Albumin 2.6 L, Globulin 4.9 H, Albumin/Globulin Ratio 0.5 L 02/03/19 12:00: Urine Color Yellow, Urine Clarity Clear, Urine pH 6.0, Ur Specific [place] 1.010, Urine Protein 30 H, Urine Glucose (UA) Normal, Urine Ketones Negative, Urine Occult Blood 250 H, Urine Nitrite Positive H, Urine Bilirubin Negative, Urine Urobilinogen Normal, Ur Leukocyte Esterase 500 H, Urine RBC 0 SEEN, Urine WBC 10-25 SEEN, Ur Squamous Epith Cells 0 SEEN, Urine Bacteria 1+, Urine Mucus 0 SEEN 02/03/19 16:55: POC Glucose 104 Past Medical History Past Medical History (Chronic Problems): Chronic Problems (Last Updated 01/20/18 @ 15:50 by Lora Mcguire) Coronary artery disease (Chronic) Hypertension (Chronic) Hyperlipidemia (Chronic) Peripheral arterial occlusive disease (Chronic) Chronic kidney disease (Chronic) Deep venous thrombosis (Chronic) Pulmonary embolism (Chronic) Bipolar disorder (Chronic) Aortic stenosis (Chronic) Allergic rhinitis (Chronic) Anemia (Chronic) BPH (benign prostatic hyperplasia) (Chronic) GERD (gastroesophageal reflux disease) (Chronic) Bipolar disorder (Chronic) Dyslipidemia (Chronic) Presence of IVC filter (Chronic) Osteoarthritis (Chronic) History of small bowel obstruction (Chronic) History of DVT (deep vein thrombosis) (Chronic) History of pulmonary embolism (Chronic) Family history of kidney stone (Chronic) Medical History: Medical History (Last Updated 01/20/18 @ 15:50 by Lora Mcguire) Presence of IVC filter (Chronic) Z95.828 Osteoarthritis (Chronic) History of small bowel obstruction (Chronic) Z87.19 History of DVT (deep vein thrombosis) (Chronic) Z86.718 History of pulmonary embolism (Chronic) Z86.711 Family history of kidney stone (Chronic) Cardiac murmur R01.1 GERD (gastroesophageal reflux disease) K21.9 Bipolar 1 disorder F31.9 Hip fracture, left S72.002A Allergies penicillin V Allergy (Mild, Verified 01/20/18 15:55) hives codeine Adverse Reaction (Mild, Verified 01/20/18 15:55) upset stomach divalproex sodium [From Depakote] Adverse Reaction (Verified 01/29/19 01:28) Other Per family, pt became very comatose on medication haloperidol [From Haldol] Adverse Reaction (Verified 01/29/19 01:29) Other Per family, pt became very comatose on medication pecans Allergy (Mild, Uncoded 12/22/17 12:55) stomach cramps Home Medications: Ambulatory Orders Medication Instructions Recorded Acetaminophen [Tylenol] 650 mg GT Q4H PRN PRN 01/28/19 Aspirin 81 mg GT DAILY 01/28/19 Bisacodyl 10 mg RC DAILY PRN PRN 01/28/19 Blm Mouthwash 5 ml PO Q4H 01/28/19 Cetirizine HCl 10 mg GT QHS 01/28/19 Clopidogrel Bisulfate [Plavix] 75 mg GT DAILY 01/28/19 Docusate Sodium [Stool Softener] 10 ml GT BID 01/28/19 Famotidine 20 mg GT BID 01/28/19 Fluticasone Propionate 1 spray NASAL BID 01/28/19 Guaifenesin Dm [Robitussin Dm] 5 ml GT Q6H PRN PRN 01/28/19 Heparin Injection 5,000 units SQ BID 01/28/19 Ipratropium/Albuterol Sulfate 3 ml INHALATION Q4H PRN PRN 01/28/19 [Iprat-Albut 0.5-3(2.5) mg/3 ml] Metoprolol Tartrate 25 mg GT BID 01/28/19 Mineral Oil/Petrolatum,White 1 applicatio EACH EYE DAILY PRN PRN 01/28/19 [Refresh Lacri-Lube Ointment] Nepro Tube Feed [Nepro Carb Steady] 60 ml GT 01/28/19 Polyethylene Glycol 3350 [Miralax] 17 gm GT DAILY 01/28/19 Polyvinyl Alcohol [Liquitears] 2 drop OPHTHALMIC 4X/DAY 01/28/19 Sennosides [Senna] 8.6 mg GT BID 01/28/19 Sensipar 30 mg GT BID 01/28/19 Surgical History: Surgical History (Last Updated 01/20/18 @ 15:53 by Lora Mcguire) 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 S/P arthroscopy of right knee Z98.890 S/P cataract extraction Z98.49 S/P cholecystectomy Z90.49 Status post arthroscopy of left knee Z98.890 Cataract extraction status of left eye Z98.42 H/O knee surgery Z98.890 bilateral S/P cholecystectomy Z90.49 S/P eye surgery Z98.890 removed right Status post left foot surgery Z98.890 fracture,, had pins but then removed donated kidney left shoulder surgery Surgical History: cataract - Left., cholecystectomy - Laparoscopic., tonsillectomy, - - Aortic Valve Replacement, Nephrectomy, Bilateral carotid artery stents, IVC filter, Bilateral knee arthroscopy, Left foot defect. Psychiatric History: Bipolar Lives: Spouse/ Significant Other Smoking Status: Former smoker Tobacco Use: Non-smoker Alcohol: None Drugs: None - *Family History Maternal Family History: Family History (Last Updated 01/20/18 @ 15:54 by Lora Mcguire) Brother Diabetes Mother Heart disease Sister Heart disease History Items: No pertinent history Paternal Family History: Family History (Last Updated 01/20/18 @ 15:54 by Lora Mcguire) Brother Diabetes Mother Heart disease Sister Heart disease History Items: No pertinent history Review of Systems Constitutional: Reports: Anorexia, Chills, Fever, Malaise, Weakness, Fatigue Patient Problems: Active and Suspected Problems (Last Updated 01/20/18 @ 15:50 by Lora Mcguire) Acute respiratory failure (Acute) Acute kidney injury (Acute) Encephalopathy (Acute) - Physical Exam General: No apparent distress, Lethargic Neck: Supple, - - tracheostomy tube in place Lungs: - - non labored Abdomen: Non-Distended, - - moves with respiration PEG tube in place Extremities: - - muscle wasting Musculoskeletal: Muscle Wasting Neurological: Cranial nerves II-XII grossly intact Vital Signs Temp Pulse Resp BP Pulse Ox 99.2 F H 105 H 20 H 93/55 L 1 02/03/19 15:19 02/03/19 17:02 02/03/19 15:19 02/03/19 17:02 02/03/19 15:19 Oxygen Flow Rate (L/min) 2 Oxygen Delivery Method Room Air Weight: 71.214 kg Body Mass Index (BMI) 23.8 Intake and Output for Last 24 Hours 02/01/19 02/02/19 02/03/19 23:59 23:59 23:59 Intake Total 3598 / 3598 3292 / 3292 1537 / 1537 Output Total 1125 / 1125 Balance 2473 / 2473 3292 / 3292 1537 / 1537 Laboratory Tests Past 24 Hrs 02/03/19 02/03/19 02/03/19 11:45 11:45 12:00 WBC 24.4 H RBC 3.37 L Hgb 10.6 L Hct 32.9 L MCV 97.6 H MCH 31.5 MCHC 32.2 RDW 16.1 H RDW Differential 57.7 H Plt Count 298 MPV 10.2 Immature Gran % (Auto) 0.400 Neut % (Auto) 84.7 H Lymph % (Auto) 7.5 L [place] % (Auto) 6.7 Eos % (Auto) 0.5 Baso % (Auto) 0.2 Absolute Neuts (auto) 20.7 H Absolute Lymphs (auto) 1.82 Total Counted Not Reportable Differential Comment SCANNED Sodium 136 Potassium 3.9 Chloride 104 Carbon Dioxide 24.0 Anion Gap 8 BUN 48 H Creatinine 1.61 H Estim Creat Clear Calc 38.94 Est GFR (MDRD) Af Amer 54 L Est GFR (MDRD) Non-Af 45 L BUN/Creatinine Ratio 29.8 H Glucose 103 Calcium 8.9 Total Bilirubin 0.20 AST 24 ALT 26 Alkaline Phosphatase 107 Total Protein 7.5 Albumin 2.6 L Globulin 4.9 H Albumin/Globulin Ratio 0.5 L Urine Color Yellow Urine Clarity Clear Urine pH 6.0 Ur Specific [place] 1.010 Urine Protein 30 H Urine Glucose (UA) Normal Urine Ketones Negative Urine Occult Blood 250 H Urine Nitrite Positive H Urine Bilirubin Negative Urine Urobilinogen Normal Ur Leukocyte Esterase 500 H Urine RBC 0 SEEN Urine WBC 10-25 SEEN Ur Squamous Epith Cells 0 SEEN Urine Bacteria 1+ Urine Mucus 0 SEEN POC Glucose 02/03/19 02/03/19 02/03/19 16:55 10:55 05:57 POC Glucose 104 112 H 122 H 02/02/19 23:56 POC Glucose 113 H Assessment/Plan All Active Problems (Last Updated 01/20/18 @ 15:50 by Lora Mcguire) Acute respiratory failure (Acute) Acute kidney injury (Acute) Encephalopathy (Acute) Carotid stenosis, bilateral (Acute) 1. Sepsis with Leukocytosis of 24,000 secondary to complicated UTI from previous Souza catheter in place. Catheter has been removed. Urinalysis abnormal and urine cultures being awaited. In the meantime patient has been started on IV Rocephin (penicillin allergy). Blood cultures also being awaited and will change antibiotics accordingly. 2. Acute kidney Injury. Likely from sepsis. Will replete volume gently for only 24 hours. Continue to monitor renal function.
[2019-02-03] MEDS: Loratadine 10 MG Tablet GT (21:35)
[2019-02-03] MEDS: guaiFENesin Dm 10 ML UDC 5 ML GT (21:40)
--- NOTE | 2019-02-03 22:00 | NURSING ---
Pt deep suction via trachea and oral with yanker. Large amt of clear thin secretions removed. Pt tolerated well and expressed being thankful. Medications administered via peg. Pt residue zero. Flushed with 60mlof sterile water. Will continue to monitor and asses.
[2019-02-03] MEDS: 0.9% NaCl Peripheral Flush Adult/Peds IV ×2 (22:09→22:11)
[2019-02-03] MEDS: 0.9% Normal Saline 1,000 ML 999 ML IV (22:09)
--- NOTE | 2019-02-03 22:39 | NURSING ---
Dr Guzmán aware pt has 1 kidney, moist productive cough, continue with orders.
[2019-02-04 00:06] LABS: Bedside Glucose 110 mg/dL (70-110)
[2019-02-04 00:25] VITALS: PULSE 104; RESP 18
[2019-02-04] MEDS: Ipratropium/Albuterol Sulfate 3 ML AMPUL.NEB INHALATION (00:25)
[2019-02-04] MEDS: BMX LIQUID 180 ML PO ×6 (01:45→22:10)
[2019-02-04] MEDS: NEPRO TUBE FEED 1,000 ML 60 ML GT ×3 (04:17→23:57)
[2019-02-04] MEDS: Menthol/Lanolin/Calamine/Znox 113 GM Tube 1 APPLIC TOPICAL ×2 (04:26→21:09)
[2019-02-04] MEDS: Enoxaparin 40 MG/0.4 ML Syringe SC (04:26)
[2019-02-04] MEDS: Nystatin Powder 15gm Bottle 1 APPLIC TOPICAL ×2 (04:26→21:09)
[2019-02-04 04:44] VITALS: BP 107/57; PULSE 103
[2019-02-04] MEDS: Clopidogrel Bisulfate 75 MG Tablet GT (04:44)
[2019-02-04] MEDS: Metoprolol Tartrate 25 MG Tablet GT ×2 (04:44→18:29)
[2019-02-04] MEDS: Famotidine 20 MG Tablet GT ×2 (04:44→18:30)
[2019-02-04] MEDS: Cinacalcet HCl 30 MG Tablet PO ×2 (04:44→18:29)
[2019-02-04] MEDS: Fluticasone 0.05% 1 SPRAY NASAL.SRY NASAL ×2 (04:45→18:29)
[2019-02-04] MEDS: guaiFENesin Dm 10 ML UDC 5 ML GT (04:53)
--- NOTE | 2019-02-04 05:00 | NURSING ---
Pt able to cough a large secretions out of trachea when cap removed. Rattle still noted. Pt suction via oral/yanker and trachea/deep. Some amount of clear secretions removed. Medications administered via peg. Residues zero, flushed with sterile water 60ml. Oral care provided. Pt tolerated well. Will to monitor and asses.
[2019-02-04 06:50] LABS: Bedside Glucose 101 mg/dL (70-110)
[2019-02-04] MEDS: Aspirin 81 MG TAB.CHEW GT (09:39)
--- NOTE | 2019-02-04 12:30 | CASEMGMT ---
Social Work: Brief interview for mental status and PHQ-9 completed this day. SONDRA Chester
[2019-02-04 15:07] VITALS: BP 102/62; PULSE 98; RESP 18; TEMP 37; O2SAT 93
--- NOTE | 2019-02-04 16:41 | CON.PCM_ITS ---
Problem List (1) Status post emergency tracheotomy for assistance in breathing Status: Acute (2) Acute respiratory failure Status: Acute Reason for Consult Date of Consultation: 02/04/19 Reason for Consultation: evaluate for decannulation of tracheotomy tube History of Present Illness: The patient is a 73 year old M who underwent tracheotomy secondary to acute neurologic injury at [facility]. This has been capped since September and he has not required frequent suctioning or ventilation. He and his deny pain, productive cough, or difficulty voicing with the trach capped. He has had a recent swallow evaluation that showed improved swallow, but that retained dry oral secretions had been a problem in the past and had led to the placement of tracheostomy. There has not been a significant build-up of secretions recently. They desire trach removal for comfort and that he does not desire to be maintained on a ventilator if his status maxim decline to a point that was necessary. [] Past Medical History Past Medical History (Chronic Problems): Chronic Problems (Last Updated 01/20/18 @ 15:50 by Lora Mcguire) Coronary artery disease (Chronic) Hypertension (Chronic) Hyperlipidemia (Chronic) Peripheral arterial occlusive disease (Chronic) Chronic kidney disease (Chronic) Deep venous thrombosis (Chronic) Pulmonary embolism (Chronic) Bipolar disorder (Chronic) Aortic stenosis (Chronic) Allergic rhinitis (Chronic) Anemia (Chronic) BPH (benign prostatic hyperplasia) (Chronic) GERD (gastroesophageal reflux disease) (Chronic) Bipolar disorder (Chronic) Dyslipidemia (Chronic) Presence of IVC filter (Chronic) Osteoarthritis (Chronic) History of small bowel obstruction (Chronic) History of DVT (deep vein thrombosis) (Chronic) History of pulmonary embolism (Chronic) Family history of kidney stone (Chronic) Medical History: Medical History (Last Updated 01/20/18 @ 15:50 by Lora Mcguire) Presence of IVC filter (Chronic) Z95.828 Osteoarthritis (Chronic) History of small bowel obstruction (Chronic) Z87.19 History of DVT (deep vein thrombosis) (Chronic) Z86.718 History of pulmonary embolism (Chronic) Z86.711 Family history of kidney stone (Chronic) Cardiac murmur R01.1 GERD (gastroesophageal reflux disease) K21.9 Bipolar 1 disorder F31.9 Hip fracture, left S72.002A Allergies penicillin V Allergy (Mild, Verified 01/20/18 15:55) hives codeine Adverse Reaction (Mild, Verified 01/20/18 15:55) upset stomach divalproex sodium [From Depakote] Adverse Reaction (Verified 01/29/19 01:28) Other Per family, pt became very comatose on medication haloperidol [From Haldol] Adverse Reaction (Verified 01/29/19 01:29) Other Per family, pt became very comatose on medication pecans Allergy (Mild, Uncoded 12/22/17 12:55) stomach cramps Home Medications: Ambulatory Orders Medication Instructions Recorded Acetaminophen [Tylenol] 650 mg GT Q4H PRN PRN 01/28/19 Aspirin 81 mg GT DAILY 01/28/19 Bisacodyl 10 mg RC DAILY PRN PRN 01/28/19 Blm Mouthwash 5 ml PO Q4H 01/28/19 Cetirizine HCl 10 mg GT QHS 01/28/19 Clopidogrel Bisulfate [Plavix] 75 mg GT DAILY 01/28/19 Docusate Sodium [Stool Softener] 10 ml GT BID 01/28/19 Famotidine 20 mg GT BID 01/28/19 Fluticasone Propionate 1 spray NASAL BID 01/28/19 Guaifenesin Dm [Robitussin Dm] 5 ml GT Q6H PRN PRN 01/28/19 Heparin Injection 5,000 units SQ BID 01/28/19 Ipratropium/Albuterol Sulfate 3 ml INHALATION Q4H PRN PRN 01/28/19 [Iprat-Albut 0.5-3(2.5) mg/3 ml] Metoprolol Tartrate 25 mg GT BID 01/28/19 Mineral Oil/Petrolatum,White 1 applicatio EACH EYE DAILY PRN PRN 01/28/19 [Refresh Lacri-Lube Ointment] Nepro Tube Feed [Nepro Carb Steady] 60 ml GT 01/28/19 Polyethylene Glycol 3350 [Miralax] 17 gm GT DAILY 01/28/19 Polyvinyl Alcohol [Liquitears] 2 drop OPHTHALMIC 4X/DAY 01/28/19 Sennosides [Senna] 8.6 mg GT BID 01/28/19 Sensipar 30 mg GT BID 01/28/19 Surgical History: Surgical History (Last Updated 01/20/18 @ 15:53 by Lora Mcguire) 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 S/P arthroscopy of right knee Z98.890 S/P cataract extraction Z98.49 S/P cholecystectomy Z90.49 Status post arthroscopy of left knee Z98.890 Cataract extraction status of left eye Z98.42 H/O knee surgery Z98.890 bilateral S/P cholecystectomy Z90.49 S/P eye surgery Z98.890 removed right Status post left foot surgery Z98.890 fracture,, had pins but then removed donated kidney left shoulder surgery Surgical History: cataract - Left., cholecystectomy - Laparoscopic., tonsillectomy, - - Aortic Valve Replacement, Nephrectomy, Bilateral carotid jimmy ry stents, IVC filter, Bilateral knee arthroscopy, Left foot defect. Psychiatric History: Bipolar Lives: Spouse/ Significant Other Smoking Status: Former smoker Tobacco Use: Non-smoker Alcohol: None Drugs: None - *Family History Maternal Family History: Family History (Last Updated 01/20/18 @ 15:54 by Lora Mcguire) Brother Diabetes Mother Heart disease Sister Heart disease History Items: No pertinent history Paternal Family History: Family History (Last Updated 01/20/18 @ 15:54 by Lora Mcguire) Brother Diabetes Mother Heart disease Sister Heart disease History Items: No pertinent history Review of Systems Constitutional: Reports: Weakness. Denies: Chills, Fever, Weight Change Eyes: Denies: Blurred vision, Double vision, Drainage, Pain HEENT: Reports: Difficulty Swallowing. Denies: Difficulty Hearing, Dysphasia, Ear Pain, Eye Pain, Head Aches, Nasal bleeding, Nasal Congestion, Post Nasal Drip, Sinus Drainage, Sore Throat Cardiovascular: Denies: Chest Pain, Chest Pressure, Chest Tightness Respiratory: Reports: Cough. Denies: Hemoptysis, Pleuritic Pain Gastrointestinal: Denies: Abdominal Pain Musculoskeletal: Denies: Arm Pain, Back Pain Skin: Denies: Dryness, Jaundice, Lesions Psychiatric: Denies: Anxiety, Depression Hematologic/ Lymphatic: Denies: Anemia, Easy Bruising, Easy Bleeding Patient Problems: Active and Suspected Problems (Last Updated 01/20/18 @ 15:53 by Lora Mcguire) Acute respiratory failure (Acute) Acute kidney injury (Acute) Encephalopathy (Acute) Status post emergency tracheotomy for assistance in breathing (Acute) Subjective: Well appearing but with decreased alertness, give appropriate responses to questions on a limited basis, responds well to . Objective: Elderly male with decreased alertness, but follows simple commands. No retained oral secretions with capped tracheotomy tube in place. - Physical Exam General: Alert, Cooperative, No apparent distress HEENT: Atraumatic, PERRLA, EOMI Oral: No Gingival or Mucosal Lesions/ Ulcerations, Dry Mucosa Neck: Supple, Trachea Midline, - - capped tracheotomy tube in place Lungs: Normal air movement, No rhonchi, No wheeze Cardiovascular: Regular rate, Regular Rhythm Extremities: No clubbing, No cyanosis, No edema Skin: No rashes, No breakdown Psych/Mental Status: Flat Affect Vital Signs Temp Pulse Resp BP Pulse Ox 98.6 F 98 18 102/62 93 02/04/19 15:07 02/04/19 15:07 02/04/19 15:07 02/04/19 15:07 02/04/19 15:07 Oxygen Flow Rate (L/min) 2 Oxygen Delivery Method Room Air Weight: 71.214 kg Body Mass Index (BMI) 23.8 Intake and Output for Last 24 Hours 02/02/19 02/03/19 02/04/19 23:59 23:59 23:59 Intake Total 3292 / 3292 2981 / 2981 2702 / 2702 Balance 3292 / 3292 2981 / 2981 2702 / 2702 Microbiology Past 72 Hours 02/03/19 12:00 Urine Culture - Preliminary Urine, Catheterized GNR Poss Pseudomonas sp POC Glucose 02/04/19 02/04/19 02/03/19 05:55 00:02 16:55 POC Glucose 101 110 104 Assessment/Plan All Active Problems (Last Updated 01/20/18 @ 15:50 by Lora Mcguire) Acute respiratory failure (Acute) Acute kidney injury (Acute) Encephalopathy (Acute) Status post emergency tracheotomy for assistance in breathing (Acute) Carotid stenosis, bilateral (Acute) Patient with reduced mental status, but stable respiratory status. He desires decannulation. We discussed that this would possibly improve his swallowing, but that he would be on his own for secretion management as the tracheotomy would no longer be available for suctioning. He and his indicate that he does not wish to be on a ventilator and understand this risk. Decannulation at the bedside is offered with post-care instructions reviewed.
[2019-02-04 17:06] LABS: Bedside Glucose 92 mg/dL (70-110)
--- NOTE | 2019-02-04 17:14 | NURSING ---
Dr. Roberts in to see patient, trach removed, patient tolerated well. DSD applied.
[2019-02-04 18:29] VITALS: BP 102/62; PULSE 98
[2019-02-04] MEDS: Docusate Sodium 100 MG/10 ML UDC GT (18:29)
[2019-02-04] MEDS: Senna Tablet 1 TABLET GT (18:30)
[2019-02-04] MEDS: Loratadine 10 MG Tablet GT (22:10)
[2019-02-05 00:10] LABS: Bedside Glucose 95 mg/dL (70-110)
[2019-02-05] MEDS: BMX LIQUID 180 ML PO ×5 (00:14→20:20)
[2019-02-05] MEDS: Menthol/Lanolin/Calamine/Znox 113 GM Tube 1 APPLIC TOPICAL ×2 (04:46→20:22)
[2019-02-05 04:48] VITALS: BP 152/90; PULSE 93
[2019-02-05] MEDS: Famotidine 20 MG Tablet GT ×2 (04:48→18:44)
[2019-02-05] MEDS: Metoprolol Tartrate 25 MG Tablet GT ×2 (04:48→18:50)
[2019-02-05] MEDS: Clopidogrel Bisulfate 75 MG Tablet GT (04:48)
[2019-02-05] MEDS: Cinacalcet HCl 30 MG Tablet PO ×2 (04:48→18:44)
[2019-02-05] MEDS: Enoxaparin 40 MG/0.4 ML Syringe SC (04:49)
[2019-02-05] MEDS: Nystatin Powder 15gm Bottle 1 APPLIC TOPICAL ×2 (04:49→20:23)
[2019-02-05 06:41] LABS: Bedside Glucose 116 mg/dL (70-110)
[2019-02-05 08:36] LABS: Bedside Glucose 116 mg/dL (70-110)
--- NOTE | 2019-02-05 10:08 | NURSING ---
Addendum entered by Cooper Phillip 02/05/19 15:35: CORRECTION,AT 8;15 AM Original Note: AT 9:15 THIS NURSE HEARD PT ALARM GOING OFF. FOUND PT ON FLOOR AGAINST BED KNEES AND HEAD ON FLOOR, BLEEDING FROM HEAD,LARGE AMOUNT ON FLOOR. CALLED FOR HELP TO ROOM. PT DENIED ANY THING SARAN HURTING AT THIS TIME. STAFF AND THIS NURSE GOT PT ON BACK AND APPLIED PRESSURE TO CUT ABOVE EYE AND CUT TO UPPER NOSE. VITALS DONE. STAFF AND THIS NURSE GOT PT BACK TO BED,AREAS STILL BLEEDING PRESSURE STILL BEING APPLIED. PT TALKING AND ANSWERING QUESTIONS. ASKED PT WHY HE WAS TRYING TO GET OUT OF BED,PT STATED HE WANTED TO STAND UP. AHSAN QUEVEDO/FIELDWORK COORDINATOR TO ROOM,STATED TO SEND PT TO ER. NO OTHER INJURES OR BRUISES SEEN AT THIS TIME. WHEN THIS NURSE WALKED INTO ROOM AND FOUND PT,BED WAS IN LOW POSITION,MATS ON FLOOR AND ALARM GOING OFF. AHSAN ALVARENGA AWARE
[2019-02-05] MEDS: Ciprofloxacin 500 MG Tablet GT ×2 (11:02→18:44)
[2019-02-05] MEDS: Aspirin 81 MG TAB.CHEW GT (11:02)
[2019-02-05] MEDS: Acetaminophen 650 MG/20 ML UDC GT (11:05)
[2019-02-05] MEDS: Tuberculin,Purif.prot.deriv. 50 TU/ML Vial 5 ML ID (11:19)
--- NOTE | 2019-02-05 11:28 | NURSING ---
PT STATED TO THIS NURSE THAT AT ANY TIME PT REFUSES ANY THING TO GIVE HER A CALL SO SHE CAN TALK TO THE PT. REPORTED TO AHSAN ALVARENGA
--- NOTE | 2019-02-05 12:04 | NURSING ---
report called to ED at 0841, called at 0845, Dr. Lira Called at 0849, nursing day care supervisor notified at 0835, community action worker notified at 1030. Pt returned from ER at 1050, no new orders, CT scan negative per report.
[2019-02-05 12:14] LABS: Absolute Lymphocyte Count 1.61 X10^3/ul (0.83-4.51); Absolute Neutrophil Count 7.1 X10^3/uL (2.0-7.7); Basophil# 0.07 X10^3/uL; Basophil% 0.7 % (0-1); Eosinophil# 0.32 X10^3/uL; Eosinophils% 3.2 % (0-5); Hematocrit 30.6 % (40-54); Hemoglobin 9.4 g/dl (13.0-16.5); Lymphocyte # 1.61 X10^3/ul (4.0); Lymphocyte % 16.3 % (19-41); Mean Corp Hgb Conc 30.7 g/gl (32-36); Mean Platelet Vol. 10.2 fl (6.2-12.0); Monocyte# 0.66 X10^3/uL; Monocyte% 6.7 % (0-10); Neutrophil % 72.1 % (47-70); POSITIVE COUNT NO; POSITIVE DIFFERENTIAL NO; POSITIVE MORPHOLOGY NO; Platelet Count 241 K/mm3 (150-450); RBC Distribution Width CV 15.8 % (11.6-14.6); RBC Distribution Width SD 58.4 fl (35.1-43.9); Red Blood Count 3.03 M/mm3 (4.6-6.2); White Blood Count 9.9 K/mm3 (4.4-11.0)
[2019-02-05 12:54] LABS: Anion Gap 6 (5-15); BUN 35 mg/dL (7-18); BUN/Creat Ratio 27.6 RATIO (10-20); Calcium,Total 8.6 mg/dL (8.5-10.1); Chloride 121 mmol/L (98-107); Creatinine, Serum 1.27 mg/dL (0.70-1.30); EST Glomerular Filtration Rate 59 mL/min (>60); Est Glom Filt Rate - Afr Amer 71 mL/min (>60); Estimated Creatinine Clearance 49.37 ml/min; Glucose 125 mg/dL (74-106); Potassium 3.9 mmol/L (3.5-5.1); Sodium Level 151 mmol/L (136-145)
[2019-02-05 13:15] VITALS: PULSE 88; RESP 18; O2SAT 96
[2019-02-05 16:00] VITALS: BP 89/62; PULSE 88; RESP 18; TEMP 36.5; O2SAT 97
[2019-02-05] MEDS: Senna Tablet 1 TABLET GT (18:43)
[2019-02-05 18:50] VITALS: BP 102/72; PULSE 108
[2019-02-05] MEDS: Loratadine 10 MG Tablet GT (20:20)
[2019-02-06 00:16] LABS: Bedside Glucose 108 mg/dL (70-110)
--- NOTE | 2019-02-06 01:17 | NURSING ---
stool sample obtained and sent to lab at this time as ordered.
[2019-02-06] MEDS: NEPRO TUBE FEED 1,000 ML 60 ML GT ×2 (01:57→21:07)
[2019-02-06] MEDS: BMX LIQUID 180 ML PO ×6 (01:59→20:07)
[2019-02-06] MEDS: Ciprofloxacin 500 MG Tablet GT ×2 (06:10→17:39)
[2019-02-06] MEDS: Enoxaparin 40 MG/0.4 ML Syringe SC (06:10)
[2019-02-06] MEDS: Famotidine 20 MG Tablet GT ×2 (06:10→17:38)
[2019-02-06] MEDS: Nystatin Powder 15gm Bottle 1 APPLIC TOPICAL ×2 (06:10→20:10)
[2019-02-06] MEDS: Clopidogrel Bisulfate 75 MG Tablet GT (06:10)
[2019-02-06] MEDS: Menthol/Lanolin/Calamine/Znox 113 GM Tube 1 APPLIC TOPICAL ×2 (06:11→20:09)
[2019-02-06] MEDS: Cinacalcet HCl 30 MG Tablet PO ×2 (06:14→18:10)
[2019-02-06 06:24] VITALS: BP 103/78; PULSE 99
[2019-02-06] MEDS: Metoprolol Tartrate 25 MG Tablet GT ×2 (06:24→17:50)
[2019-02-06 06:46] LABS: Bedside Glucose 107 mg/dL (70-110)
[2019-02-06] MEDS: Aspirin 81 MG TAB.CHEW GT (09:17)
[2019-02-06] MEDS: Acetaminophen 650 MG/20 ML UDC GT ×2 (09:28→17:48)
--- NOTE | 2019-02-06 09:33 | NURSING ---
THIS NURSE WALKED INTO ROOM, PT COUGHING. SUCTIONED A LOT OF STICKY THICK SPUTUM OUT. MOUTH CARE GIVEN. PT RESTING COMFORTABLE, IN ROOM. BED LOW POSITION,MATS ON FLOOR,CALL LIGHT IN REACH,ALARM ON.
[2019-02-06 15:43] VITALS: BP 99/68; PULSE 91; RESP 24; TEMP 36.8; O2SAT 97
--- NOTE | 2019-02-06 16:09 | NURSING ---
STATED TO THIS NURSE SHE WOULD CHECK TO SEE IF PT HAD THE PNEUMONIA SHOT CAUSE SHE THINKS HE DID AND WOULD LET US KNOW ON THURSDAY.
[2019-02-06 17:16] LABS: Bedside Glucose 92 mg/dL (70-110)
[2019-02-06] MEDS: Senna Tablet 1 TABLET GT (17:38)
[2019-02-06] MEDS: Docusate Sodium 100 MG/10 ML UDC GT (17:39)
[2019-02-06 17:50] VITALS: BP 118/93; PULSE 107
[2019-02-06 17:51] VITALS: BP 118/93; PULSE 107
[2019-02-06] MEDS: Fluticasone 0.05% 1 SPRAY NASAL.SRY NASAL (18:12)
[2019-02-06] MEDS: Loratadine 10 MG Tablet GT (20:09)
[2019-02-06 20:45] VITALS: PULSE 86; RESP 18; O2SAT 97
[2019-02-07 00:05] LABS: Bedside Glucose 93 mg/dL (70-110)
[2019-02-07] MEDS: BMX LIQUID 180 ML PO ×6 (02:00→21:38)
[2019-02-07 06:03] VITALS: BP 98/72; PULSE 110
[2019-02-07] MEDS: Metoprolol Tartrate 25 MG Tablet GT (06:03)
[2019-02-07] MEDS: Clopidogrel Bisulfate 75 MG Tablet GT (06:03)
[2019-02-07] MEDS: Cinacalcet HCl 30 MG Tablet PO ×2 (06:03→17:25)
[2019-02-07] MEDS: Ciprofloxacin 500 MG Tablet GT ×2 (06:03→17:23)
[2019-02-07] MEDS: Famotidine 20 MG Tablet GT ×2 (06:03→17:24)
[2019-02-07] MEDS: Nystatin Powder 15gm Bottle 1 APPLIC TOPICAL ×2 (06:04→21:36)
[2019-02-07] MEDS: Menthol/Lanolin/Calamine/Znox 113 GM Tube 1 APPLIC TOPICAL ×2 (06:05→21:35)
[2019-02-07] MEDS: Enoxaparin 40 MG/0.4 ML Syringe SC (06:05)
[2019-02-07] MEDS: Docusate Sodium 100 MG/10 ML UDC GT ×2 (06:14→17:23)
[2019-02-07 06:40] LABS: Bedside Glucose 105 mg/dL (70-110)
[2019-02-07] MEDS: Aspirin 81 MG TAB.CHEW GT (08:14)
[2019-02-07 10:00] VITALS: PULSE 92; RESP 18; O2SAT 92
[2019-02-07 11:00] LABS: Bedside Glucose 122 mg/dL (70-110)
[2019-02-07] MEDS: Acetaminophen 650 MG/20 ML UDC GT (11:09)
[2019-02-07] MEDS: NEPRO TUBE FEED 1,000 ML 60 ML GT ×2 (12:17→21:35)
[2019-02-07 15:34] VITALS: BP 76/49; PULSE 74; RESP 20; TEMP 36.9; O2SAT 90
[2019-02-07] MEDS: Fluticasone 0.05% 1 SPRAY NASAL.SRY NASAL (17:23)
[2019-02-07 17:25] LABS: Bedside Glucose 108 mg/dL (70-110)
[2019-02-07] MEDS: Senna Tablet 1 TABLET GT (17:25)
[2019-02-07] MEDS: Loratadine 10 MG Tablet GT (21:39)
[2019-02-08 00:06] LABS: Bedside Glucose 107 mg/dL (70-110)
[2019-02-08] MEDS: BMX LIQUID 180 ML PO ×6 (01:15→22:17)
[2019-02-08 04:53] VITALS: BP 117/84; PULSE 113
[2019-02-08] MEDS: Senna Tablet 1 TABLET GT ×2 (04:53→18:28)
[2019-02-08] MEDS: Cinacalcet HCl 30 MG Tablet PO ×2 (04:53→18:28)
[2019-02-08] MEDS: Menthol/Lanolin/Calamine/Znox 113 GM Tube 1 APPLIC TOPICAL ×2 (04:53→22:16)
[2019-02-08] MEDS: Clopidogrel Bisulfate 75 MG Tablet GT (04:53)
[2019-02-08] MEDS: Fluticasone 0.05% 1 SPRAY NASAL.SRY NASAL ×2 (04:53→18:17)
[2019-02-08] MEDS: Metoprolol Tartrate 25 MG Tablet GT (04:53)
[2019-02-08] MEDS: Polyethylene Glycol 3350 17 GM PACKET GT (04:53)
[2019-02-08] MEDS: Docusate Sodium 100 MG/10 ML UDC GT ×2 (04:54→18:22)
[2019-02-08] MEDS: Nystatin Powder 15gm Bottle 1 APPLIC TOPICAL ×2 (04:54→22:16)
[2019-02-08] MEDS: Enoxaparin 40 MG/0.4 ML Syringe SC (04:54)
[2019-02-08] MEDS: Ciprofloxacin 500 MG Tablet GT ×2 (04:54→18:22)
[2019-02-08] MEDS: Famotidine 20 MG Tablet GT ×2 (04:54→18:27)
[2019-02-08 06:00] LABS: Bedside Glucose 92 mg/dL (70-110)
[2019-02-08 07:05] LABS: Bedside Glucose 95 mg/dL (70-110)
[2019-02-08 07:05] LABS: Bedside Glucose 79 mg/dL (70-110)
[2019-02-08] MEDS: Aspirin 81 MG TAB.CHEW GT (09:17)
[2019-02-08 11:36] LABS: Bedside Glucose 88 mg/dL (70-110)
[2019-02-08 17:35] LABS: Bedside Glucose 87 mg/dL (70-110)
[2019-02-08 18:00] VITALS: PULSE 80
[2019-02-08 18:25] VITALS: BP 107/72; PULSE 80
[2019-02-08] MEDS: Metoprolol Tartrate 25 MG Tablet 12.5 MG GT (18:25)
[2019-02-08] MEDS: NEPRO TUBE FEED 1,000 ML 60 ML GT (18:28)
[2019-02-08 19:12] LABS: Anion Gap 6 (5-15); BUN 34 mg/dL (7-18); BUN/Creat Ratio 24.6 RATIO (10-20); Calcium,Total 8.8 mg/dL (8.5-10.1); Chloride 119 mmol/L (98-107); Creatinine, Serum 1.38 mg/dL (0.70-1.30); EST Glomerular Filtration Rate 54 mL/min (>60); Est Glom Filt Rate - Afr Amer 65 mL/min (>60); Estimated Creatinine Clearance 45.43 ml/min; Glucose 111 mg/dL (74-106); Potassium 3.6 mmol/L (3.5-5.1); Sodium Level 150 mmol/L (136-145)
--- NOTE | 2019-02-08 19:54 | NURSING ---
Dr. Lira updated on NA 150. N.O to increase PEG flushes to 500cc Q4H. Recheck in the AM.
[2019-02-08] MEDS: Loratadine 10 MG Tablet GT (22:18)
[2019-02-09 00:01] LABS: Bedside Glucose 106 mg/dL (70-110)
[2019-02-09] MEDS: BMX LIQUID 180 ML PO ×6 (02:40→20:14)
[2019-02-09] MEDS: Menthol/Lanolin/Calamine/Znox 113 GM Tube 1 APPLIC TOPICAL ×2 (04:40→20:12)
[2019-02-09] MEDS: Docusate Sodium 100 MG/10 ML UDC GT ×2 (04:41→17:07)
[2019-02-09] MEDS: Nystatin Powder 15gm Bottle 1 APPLIC TOPICAL ×2 (04:41→20:12)
[2019-02-09] MEDS: Fluticasone 0.05% 1 SPRAY NASAL.SRY NASAL ×2 (04:41→17:08)
[2019-02-09] MEDS: Famotidine 20 MG Tablet GT ×2 (04:42→17:07)
[2019-02-09] MEDS: Polyethylene Glycol 3350 17 GM PACKET GT (04:42)
[2019-02-09] MEDS: Senna Tablet 1 TABLET GT ×2 (04:42→17:08)
[2019-02-09] MEDS: Cinacalcet HCl 30 MG Tablet PO ×2 (04:42→17:06)
[2019-02-09] MEDS: Clopidogrel Bisulfate 75 MG Tablet GT (04:42)
[2019-02-09 04:43] VITALS: BP 101/64; PULSE 100
[2019-02-09] MEDS: Ciprofloxacin 500 MG Tablet GT ×2 (04:43→17:06)
[2019-02-09] MEDS: Metoprolol Tartrate 25 MG Tablet 12.5 MG GT (04:43)
[2019-02-09] MEDS: Enoxaparin 40 MG/0.4 ML Syringe SC (04:43)
[2019-02-09 06:06] LABS: Bedside Glucose 99 mg/dL (70-110)
[2019-02-09 07:29] LABS: Hematocrit 38.4 % (40-54); Hemoglobin 11.7 g/dl (13.0-16.5); Mean Corp Hgb Conc 30.5 g/gl (32-36); Mean Corpuscular Hgb 30.5 pg (27.0-32.0); Mean Corpuscular Volume 100.3 fL (80-94); Mean Platelet Vol. 9.5 fl (6.2-12.0); Platelet Count 317 K/mm3 (150-450); RBC Distribution Width CV 15.7 % (11.6-14.6); RBC Distribution Width SD 57.4 fl (35.1-43.9); Red Blood Count 3.83 M/mm3 (4.6-6.2); White Blood Count 11.3 K/mm3 (4.4-11.0)
[2019-02-09 07:30] LABS: Differential Indicated MANUAL DIFF; POSITIVE COUNT YES; POSITIVE DIFFERENTIAL NO; POSITIVE MORPHOLOGY YES
[2019-02-09 07:48] LABS: Anion Gap 4 (5-15); BUN 33 mg/dL (7-18); BUN/Creat Ratio 23.2 RATIO (10-20); Calcium,Total 8.6 mg/dL (8.5-10.1); Chloride 116 mmol/L (98-107); Creatinine, Serum 1.42 mg/dL (0.70-1.30); EST Glomerular Filtration Rate 52 mL/min (>60); Est Glom Filt Rate - Afr Amer 63 mL/min (>60); Estimated Creatinine Clearance 44.15 ml/min; Glucose 116 mg/dL (74-106); Potassium 3.9 mmol/L (3.5-5.1); Sodium Level 147 mmol/L (136-145)
[2019-02-09 08:52] LABS: Basophil 1 % (0-1); Eosinophil 3 % (0-5); Lymphocyte 23 % (19-41); Metamyelocyte 1 % (0-1); Monocyte 5 % (0-10); Myelocyte 2 (0-0); Neutrophil-Band 3 % (0-5); Neutrophil-Segmented 61 % (47-70); Promyelocyte 1 (0-0); Total Cells Counted 100 (MANUAL DIFF)
[2019-02-09 08:53] LABS: Absolute Neutrophil Count 7.2 X10^3/uL (2.0-7.7); Platelet Estimate ADEQUATE (ADEQ); Red Cell Morphology NORM C+C NORMAL (NORM C&C)
[2019-02-09] MEDS: Aspirin 81 MG TAB.CHEW GT (09:17)
[2019-02-09 09:32] VITALS: BP 116/70; PULSE 83; RESP 16; TEMP 36.9; O2SAT 93
--- NOTE | 2019-02-09 09:33 | NURSING ---
PT STATED TO THIS NURSE THAT HE FELT DIZZY AND LIGHT HEADED. VITALS DONE AND WNL, REPORTED TO AHSAN ROCHA
[2019-02-09 11:15] LABS: Bedside Glucose 94 mg/dL (70-110)
[2019-02-09 14:52] LABS: Pathologist Review Reviewed
[2019-02-09 16:00] VITALS: BP 98/60; PULSE 95; RESP 18; TEMP 36.8; O2SAT 94
[2019-02-09 17:01] LABS: Bedside Glucose 94 mg/dL (70-110)
--- NOTE | 2019-02-09 18:31 | NURSING ---
BP 98/60 pulse 95, Dr. Lira updated, hold metoprolol.
[2019-02-09] MEDS: NEPRO TUBE FEED 1,000 ML 60 ML GT (18:55)
[2019-02-09] MEDS: Loratadine 10 MG Tablet GT (20:11)
[2019-02-09] MEDS: Acetaminophen 650 MG/20 ML UDC GT (20:12)
[2019-02-10 00:11] LABS: Bedside Glucose 106 mg/dL (70-110)
[2019-02-10] MEDS: BMX LIQUID 180 ML PO ×6 (01:20→21:00)
[2019-02-10 04:52] VITALS: BP 127/71; PULSE 110
[2019-02-10] MEDS: Metoprolol Tartrate 25 MG Tablet 12.5 MG GT ×2 (04:52→16:41)
[2019-02-10] MEDS: Enoxaparin 40 MG/0.4 ML Syringe SC (04:52)
[2019-02-10] MEDS: Fluticasone 0.05% 1 SPRAY NASAL.SRY NASAL ×2 (04:52→16:42)
[2019-02-10] MEDS: Ciprofloxacin 500 MG Tablet GT (04:52)
[2019-02-10] MEDS: Nystatin Powder 15gm Bottle 1 APPLIC TOPICAL ×2 (04:52→21:00)
[2019-02-10] MEDS: Clopidogrel Bisulfate 75 MG Tablet GT (04:52)
[2019-02-10] MEDS: Polyethylene Glycol 3350 17 GM PACKET GT (04:53)
[2019-02-10] MEDS: Docusate Sodium 100 MG/10 ML UDC GT ×2 (04:53→16:42)
[2019-02-10] MEDS: Cinacalcet HCl 30 MG Tablet PO ×2 (04:53→16:40)
[2019-02-10] MEDS: Menthol/Lanolin/Calamine/Znox 113 GM Tube 1 APPLIC TOPICAL ×2 (04:53→21:00)
[2019-02-10] MEDS: Famotidine 20 MG Tablet GT ×2 (04:53→16:41)
[2019-02-10] MEDS: Senna Tablet 1 TABLET GT ×2 (04:53→16:40)
[2019-02-10 06:08] LABS: Anion Gap 8 (5-15); BUN 36 mg/dL (7-18); Calcium,Total 8.6 mg/dL (8.5-10.1); Chloride 115 mmol/L (98-107); Creatinine, Serum 1.44 mg/dL (0.70-1.30); EST Glomerular Filtration Rate 51 mL/min (>60); Est Glom Filt Rate - Afr Amer 62 mL/min (>60); Estimated Creatinine Clearance 43.54 ml/min; Glucose 114 mg/dL (74-106); Potassium 3.7 mmol/L (3.5-5.1); Sodium Level 148 mmol/L (136-145)
[2019-02-10 06:50] LABS: Bedside Glucose 125 mg/dL (70-110)
[2019-02-10] MEDS: Aspirin 81 MG TAB.CHEW GT (08:09)
--- NOTE | 2019-02-10 08:10 | NURSING ---
Pt tube feed placement verified by auscultating gastric bubble, zero residula noted at thim time. Medication given via peg tube.
--- NOTE | 2019-02-10 10:14 | MDS.RN ---
Information for the mds was obtained from review of the clinical record, interview of resident, staff, and direct observation of resident's care.
[2019-02-10 11:30] LABS: Bedside Glucose 115 mg/dL (70-110)
--- NOTE | 2019-02-10 13:18 | CASEMGMT ---
Addendum entered by Jessica Suero 02/10/19 13:30: Student manager social work MDS documentation reviewed. SYDNEY Smiley Original Note: Brief interview for mental status (BIMS) and mood (PHQ-9) completed on this day. BIMS score 07/03. PHQ-9 score 03/14. Heidi Knight social work student
[2019-02-10] MEDS: Acetaminophen 650 MG/20 ML UDC GT (15:17)
[2019-02-10 15:38] VITALS: BP 88/53; PULSE 94; RESP 14; TEMP 37.2; O2SAT 95
[2019-02-10] MEDS: NEPRO TUBE FEED 1,000 ML 60 ML GT (16:40)
[2019-02-10 16:41] VITALS: BP 95/62; PULSE 94
[2019-02-10 17:05] LABS: Bedside Glucose 90 mg/dL (70-110)
[2019-02-10] MEDS: Loratadine 10 MG Tablet GT (20:59)
[2019-02-11 00:01] LABS: Bedside Glucose 96 mg/dL (70-110)
[2019-02-11] MEDS: Menthol/Lanolin/Calamine/Znox 113 GM Tube 1 APPLIC TOPICAL ×2 (04:55→21:59)
[2019-02-11] MEDS: Famotidine 20 MG Tablet GT ×2 (04:56→16:42)
[2019-02-11] MEDS: Cinacalcet HCl 30 MG Tablet PO ×2 (04:56→16:42)
[2019-02-11] MEDS: Senna Tablet 1 TABLET GT (04:56)
[2019-02-11] MEDS: Aspirin 81 MG TAB.CHEW GT (04:57)
[2019-02-11] MEDS: Clopidogrel Bisulfate 75 MG Tablet GT (04:57)
[2019-02-11] MEDS: Polyethylene Glycol 3350 17 GM PACKET GT (04:57)
[2019-02-11] MEDS: Nystatin Powder 15gm Bottle 1 APPLIC TOPICAL ×2 (04:57→22:00)
[2019-02-11] MEDS: Fluticasone 0.05% 1 SPRAY NASAL.SRY NASAL ×2 (04:58→16:44)
[2019-02-11] MEDS: Enoxaparin 40 MG/0.4 ML Syringe SC (04:58)
[2019-02-11] MEDS: Docusate Sodium 100 MG/10 ML UDC GT (04:58)
[2019-02-11 05:06] VITALS: BP 93/58; PULSE 96; TEMP 37.2
[2019-02-11] MEDS: BMX LIQUID 180 ML PO ×5 (05:16→22:00)
[2019-02-11 06:30] LABS: Bedside Glucose 105 mg/dL (70-110)
[2019-02-11 09:23] VITALS: BP 92/65; PULSE 108; RESP 18; TEMP 37.1; O2SAT 94
--- NOTE | 2019-02-11 10:51 | NURSING ---
0cc residual at this time. assisted with putting sweat pants on pt for therapy. Pt more alert and oriented today. resting in bed. hob elevated. TF running as ordered. call light in reach. bed in low position, mats on floor to each side of bed.
[2019-02-11 11:31] LABS: Bedside Glucose 104 mg/dL (70-110)
[2019-02-11] MEDS: NEPRO TUBE FEED 1,000 ML 60 ML GT (13:23)
--- NOTE | 2019-02-11 13:33 | NURSING ---
20cc residual from PEG. New bottle hung of Nepro, placement checked via auscultation. pt resting eyes closed, HOB elevated at 30 degrees. Pt sat up in recliner chair visiting with friend. Back to bed, call light in reach. at side.
[2019-02-11 15:56] VITALS: BP 97/72; PULSE 111; RESP 22; TEMP 36.8; O2SAT 97
[2019-02-11 16:43] VITALS: BP 97/72; PULSE 111
[2019-02-11] MEDS: Metoprolol Tartrate 25 MG Tablet 12.5 MG GT (16:43)
--- NOTE | 2019-02-11 16:58 | NURSING ---
meds given via PEG, 0 cc residual. Pt HOB elevated. resting quietly with eyes closed. bed low to floor, mats on each side. call light in reach. pleasant and more talkative today. doing better w/orientation.
[2019-02-11 17:06] LABS: Bedside Glucose 111 mg/dL (70-110)
[2019-02-11] MEDS: Loratadine 10 MG Tablet GT (21:59)
[2019-02-11] MEDS: MELATONIN 10 MG TABLET PO (21:59)
[2019-02-12 00:11] LABS: Bedside Glucose 117 mg/dL (70-110)
[2019-02-12 06:51] LABS: Bedside Glucose 95 mg/dL (70-110)
[2019-02-12] MEDS: BMX LIQUID 180 ML PO ×4 (06:54→22:03)
[2019-02-12] MEDS: Polyethylene Glycol 3350 17 GM PACKET GT (06:54)
[2019-02-12 06:55] VITALS: PULSE 73
[2019-02-12] MEDS: Famotidine 20 MG Tablet GT ×2 (06:55→17:38)
[2019-02-12] MEDS: Metoprolol Tartrate 25 MG Tablet 12.5 MG GT (06:55)
[2019-02-12] MEDS: Fluticasone 0.05% 1 SPRAY NASAL.SRY NASAL ×2 (06:56→17:37)
[2019-02-12] MEDS: Senna Tablet 1 TABLET GT ×2 (06:56→17:38)
[2019-02-12] MEDS: Menthol/Lanolin/Calamine/Znox 113 GM Tube 1 APPLIC TOPICAL ×2 (06:56→22:02)
[2019-02-12] MEDS: Cinacalcet HCl 30 MG Tablet PO ×2 (06:56→17:38)
[2019-02-12] MEDS: Clopidogrel Bisulfate 75 MG Tablet GT (06:56)
[2019-02-12] MEDS: Nystatin Powder 15gm Bottle 1 APPLIC TOPICAL ×2 (06:56→22:02)
[2019-02-12] MEDS: Enoxaparin 40 MG/0.4 ML Syringe SC (06:56)
[2019-02-12] MEDS: Docusate Sodium 100 MG/10 ML UDC GT ×2 (06:56→17:38)
--- NOTE | 2019-02-12 07:14 | NURSING ---
residuals checked 2x this shift w/meds for a total of 10cc.
[2019-02-12] MEDS: Aspirin 81 MG TAB.CHEW GT (08:10)
[2019-02-12 08:39] LABS: Absolute Lymphocyte Count 1.93 X10^3/ul (0.83-4.51); Absolute Neutrophil Count 5.4 X10^3/uL (2.0-7.7); Basophil% 1.1 % (0-1); Eosinophil# 0.44 X10^3/uL; Eosinophils% 4.9 % (0-5); Hematocrit 35.7 % (40-54); Hemoglobin 11.1 g/dl (13.0-16.5); Lymphocyte # 1.93 X10^3/ul (4.0); Lymphocyte % 21.7 % (19-41); Mean Corp Hgb Conc 31.1 g/gl (32-36); Mean Corpuscular Hgb 30.7 pg (27.0-32.0); Mean Corpuscular Volume 98.9 fL (80-94); Mean Platelet Vol. 10.2 fl (6.2-12.0); Monocyte# 0.82 X10^3/uL; Monocyte% 9.2 % (0-10); Neutrophil % 60.6 % (47-70); Platelet Count 315 K/mm3 (150-450); RBC Distribution Width CV 15.5 % (11.6-14.6); RBC Distribution Width SD 54.3 fl (35.1-43.9); Red Blood Count 3.61 M/mm3 (4.6-6.2); White Blood Count 8.9 K/mm3 (4.4-11.0)
[2019-02-12 08:47] LABS: Anion Gap 9 (5-15); BUN 35 mg/dL (7-18); BUN/Creat Ratio 24.3 RATIO (10-20); Calcium,Total 9.4 mg/dL (8.5-10.1); Chloride 112 mmol/L (98-107); Creatinine, Serum 1.44 mg/dL (0.70-1.30); EST Glomerular Filtration Rate 51 mL/min (>60); Est Glom Filt Rate - Afr Amer 62 mL/min (>60); Estimated Creatinine Clearance 43.54 ml/min; Glucose 102 mg/dL (74-106); POSITIVE COUNT YES; POSITIVE DIFFERENTIAL NO; POSITIVE MORPHOLOGY YES; Potassium 4.3 mmol/L (3.5-5.1); Sodium Level 141 mmol/L (136-145)
[2019-02-12 11:01] LABS: Bedside Glucose 109 mg/dL (70-110)
[2019-02-12 15:36] VITALS: BP 92/59; PULSE 94; RESP 18; TEMP 37.1; O2SAT 94
[2019-02-12 16:45] LABS: Bedside Glucose 116 mg/dL (70-110)
--- NOTE | 2019-02-12 17:31 | NURSING ---
New order to decrease H2O flush to 450mL [id number], recheck BMP Thursday.
--- NOTE | 2019-02-12 17:46 | NURSING ---
New order to decrease lopressor to 6.25mg
[2019-02-12] MEDS: Loratadine 10 MG Tablet GT (22:03)
[2019-02-12] MEDS: MELATONIN 10 MG TABLET PO (22:03)
[2019-02-13 00:06] LABS: Bedside Glucose 115 mg/dL (70-110)
[2019-02-13] MEDS: Acetaminophen 650 MG/20 ML UDC GT (01:13)
[2019-02-13] MEDS: BMX LIQUID 180 ML PO ×6 (01:17→20:21)
[2019-02-13] MEDS: Nystatin Powder 15gm Bottle 1 APPLIC TOPICAL ×2 (04:39→20:06)
[2019-02-13] MEDS: NEPRO TUBE FEED 1,000 ML 60 ML GT ×2 (04:39→20:06)
[2019-02-13] MEDS: Menthol/Lanolin/Calamine/Znox 113 GM Tube 1 APPLIC TOPICAL ×2 (04:39→20:06)
[2019-02-13] MEDS: Docusate Sodium 100 MG/10 ML UDC GT ×2 (04:40→17:49)
[2019-02-13] MEDS: Polyethylene Glycol 3350 17 GM PACKET GT (04:40)
[2019-02-13 04:41] VITALS: BP 108/65; PULSE 105
[2019-02-13] MEDS: Senna Tablet 1 TABLET GT ×2 (04:41→17:51)
[2019-02-13] MEDS: Cinacalcet HCl 30 MG Tablet PO ×2 (04:41→17:50)
[2019-02-13] MEDS: Clopidogrel Bisulfate 75 MG Tablet GT (04:41)
[2019-02-13] MEDS: Metoprolol Tartrate 25 MG Tablet 6.25 MG GT ×2 (04:41→17:50)
[2019-02-13] MEDS: Famotidine 20 MG Tablet GT ×2 (04:41→17:51)
[2019-02-13] MEDS: Enoxaparin 40 MG/0.4 ML Syringe SC (04:41)
[2019-02-13] MEDS: Fluticasone 0.05% 1 SPRAY NASAL.SRY NASAL ×2 (04:49→17:49)
[2019-02-13 06:01] LABS: Bedside Glucose 101 mg/dL (70-110)
[2019-02-13] MEDS: Aspirin 81 MG TAB.CHEW GT (09:12)
[2019-02-13 11:20] LABS: Bedside Glucose 107 mg/dL (70-110)
[2019-02-13 15:43] VITALS: BP 108/67; PULSE 105; RESP 20; TEMP 36.9; O2SAT 94
[2019-02-13 17:00] LABS: Bedside Glucose 115 mg/dL (70-110)
[2019-02-13 17:50] VITALS: BP 108/67; PULSE 105
[2019-02-13] MEDS: Loratadine 10 MG Tablet GT (20:21)
[2019-02-13] MEDS: MELATONIN 10 MG TABLET PO (20:21)
[2019-02-13 23:51] LABS: Bedside Glucose 126 mg/dL (70-110)
[2019-02-14 04:41] VITALS: BP 103/62; PULSE 103
[2019-02-14] MEDS: Clopidogrel Bisulfate 75 MG Tablet GT (04:41)
[2019-02-14] MEDS: Metoprolol Tartrate 25 MG Tablet 6.25 MG GT ×2 (04:41→18:12)
[2019-02-14] MEDS: Famotidine 20 MG Tablet GT ×2 (04:41→18:12)
[2019-02-14] MEDS: Cinacalcet HCl 30 MG Tablet PO ×2 (04:41→18:12)
[2019-02-14] MEDS: Fluticasone 0.05% 1 SPRAY NASAL.SRY NASAL (04:42)
[2019-02-14] MEDS: Enoxaparin 40 MG/0.4 ML Syringe SC (04:42)
[2019-02-14] MEDS: BMX LIQUID 180 ML PO ×2 (04:42→09:31)
[2019-02-14] MEDS: Menthol/Lanolin/Calamine/Znox 113 GM Tube 1 APPLIC TOPICAL ×2 (04:43→21:05)
[2019-02-14] MEDS: Nystatin Powder 15gm Bottle 1 APPLIC TOPICAL ×2 (04:43→21:05)
[2019-02-14 06:01] LABS: Bedside Glucose 103 mg/dL (70-110)
[2019-02-14 06:33] LABS: Anion Gap 8 (5-15); BUN 37 mg/dL (7-18); BUN/Creat Ratio 25.5 RATIO (10-20); Calcium,Total 9.9 mg/dL (8.5-10.1); Chloride 111 mmol/L (98-107); Creatinine, Serum 1.45 mg/dL (0.70-1.30); EST Glomerular Filtration Rate 51 mL/min (>60); Est Glom Filt Rate - Afr Amer 61 mL/min (>60); Estimated Creatinine Clearance 43.24 ml/min; Glucose 107 mg/dL (74-106); Potassium 3.8 mmol/L (3.5-5.1); Sodium Level 145 mmol/L (136-145)
[2019-02-14] MEDS: Aspirin 81 MG TAB.CHEW GT (09:26)
--- NOTE | 2019-02-14 09:40 | NURSING ---
PLACEMENT VERIFIED,0 RESIDUAL. MEDS GIVEN,PT TOLERATED WELL NO COMPLAINTS OR CONCERNS AT THIS TIME.
[2019-02-14 11:11] LABS: Bedside Glucose 110 mg/dL (70-110)
[2019-02-14 14:40] LABS: Pathologist Review Reviewed
[2019-02-14 15:16] VITALS: BP 87/59; PULSE 71; RESP 18; TEMP 36.9; O2SAT 97
[2019-02-14 17:01] LABS: Bedside Glucose 82 mg/dL (70-110)
[2019-02-14] MEDS: Docusate Sodium 100 MG/10 ML UDC GT (18:11)
[2019-02-14 18:12] VITALS: BP 98/65; PULSE 124
[2019-02-14] MEDS: NEPRO TUBE FEED 1,000 ML 60 ML GT (18:15)
[2019-02-14] MEDS: MELATONIN 10 MG TABLET PO (21:04)
[2019-02-14] MEDS: Loratadine 10 MG Tablet GT (21:04)
--- NOTE | 2019-02-14 22:37 | NURSING ---
At 2205 patient's personal alarm noted to be ringing, staff in immediately; patient found with one knee on floor mat. Patient's states that he has to go the restroom. Patient noted by staff to be sleeping soundly at 2150. BP 94/[address] Lira notified of this no new orders given. Heather notified of this, ok with moving patient to room 12 which is closer to nurses station. Patient moved to room 12.
[2019-02-15 00:11] LABS: Bedside Glucose 107 mg/dL (70-110)
[2019-02-15] MEDS: Polyethylene Glycol 3350 17 GM PACKET GT (04:44)
[2019-02-15] MEDS: Senna Tablet 1 TABLET GT (04:44)
[2019-02-15] MEDS: Famotidine 20 MG Tablet GT ×2 (04:44→17:27)
[2019-02-15] MEDS: Cinacalcet HCl 30 MG Tablet PO ×2 (04:44→17:27)
[2019-02-15] MEDS: Enoxaparin 40 MG/0.4 ML Syringe SC (04:44)
[2019-02-15] MEDS: Clopidogrel Bisulfate 75 MG Tablet GT (04:44)
[2019-02-15] MEDS: Menthol/Lanolin/Calamine/Znox 113 GM Tube 1 APPLIC TOPICAL ×2 (04:44→20:22)
[2019-02-15] MEDS: Docusate Sodium 100 MG/10 ML UDC GT (04:44)
[2019-02-15] MEDS: Nystatin Powder 15gm Bottle 1 APPLIC TOPICAL ×2 (04:45→20:23)
[2019-02-15 04:48] VITALS: BP 109/70; PULSE 99
[2019-02-15] MEDS: Metoprolol Tartrate 25 MG Tablet 6.25 MG GT ×2 (04:48→17:29)
[2019-02-15] MEDS: Fluticasone 0.05% 1 SPRAY NASAL.SRY NASAL ×2 (04:59→17:27)
[2019-02-15 06:36] LABS: Bedside Glucose 100 mg/dL (70-110)
[2019-02-15] MEDS: Aspirin 81 MG TAB.CHEW GT (08:23)
[2019-02-15 10:00] VITALS: RESP 18; O2SAT 96
--- NOTE | 2019-02-15 10:33 | NURSING ---
0cc residual from PEG tube, Nepro infusing as ordered. Pt sitting up in recliner chair, at side. alarm in place. pt more alert & oriented at this time but fluctuates. Pleasant & cooperative.
[2019-02-15] MEDS: NEPRO TUBE FEED 1,000 ML 60 ML GT (14:30)
--- NOTE | 2019-02-15 14:55 | NURSING ---
60cc choudhury residual noted from PEG, new tubing and bottle hung. pt assisted to toilet via divya lift and then to recliner chair. call light in reach. alarm in place.
[2019-02-15 15:30] VITALS: BP 87/61; PULSE 109; RESP 18; TEMP 36.7; O2SAT 97
[2019-02-15 16:51] LABS: Bedside Glucose 102 mg/dL (70-110)
[2019-02-15 17:29] VITALS: BP 98/64; PULSE 103
--- NOTE | 2019-02-15 17:31 | NURSING ---
DR WANG UPDATED ON BP, HOLD LOPRESSOR IF SBP LESS THAN 90. HR 103 BP 98/64, GIVEN VIA PEG
[2019-02-15] MEDS: MELATONIN 10 MG TABLET PO (20:15)
[2019-02-15] MEDS: Loratadine 10 MG Tablet GT (20:16)
[2019-02-16 00:11] LABS: Bedside Glucose 114 mg/dL (70-110)
[2019-02-16] MEDS: Menthol/Lanolin/Calamine/Znox 113 GM Tube 1 APPLIC TOPICAL ×2 (05:41→20:57)
[2019-02-16 05:42] VITALS: BP 119/81; PULSE 102
[2019-02-16] MEDS: Nystatin Powder 15gm Bottle 1 APPLIC TOPICAL ×2 (05:42→20:57)
[2019-02-16] MEDS: Metoprolol Tartrate 25 MG Tablet 6.25 MG GT (05:42)
[2019-02-16] MEDS: Enoxaparin 40 MG/0.4 ML Syringe SC (05:43)
[2019-02-16] MEDS: Clopidogrel Bisulfate 75 MG Tablet GT (05:43)
[2019-02-16] MEDS: Famotidine 20 MG Tablet GT ×2 (05:43→17:41)
[2019-02-16] MEDS: Cinacalcet HCl 30 MG Tablet PO ×2 (05:43→17:40)
[2019-02-16] MEDS: Fluticasone 0.05% 1 SPRAY NASAL.SRY NASAL ×2 (05:55→17:40)
[2019-02-16 06:35] LABS: Bedside Glucose 113 mg/dL (70-110)
[2019-02-16] MEDS: Aspirin 81 MG TAB.CHEW GT (08:59)
[2019-02-16] MEDS: NEPRO TUBE FEED 1,000 ML 60 ML GT (11:18)
[2019-02-16 16:00] VITALS: BP 85/55; PULSE 108; RESP 18; TEMP 36.9
[2019-02-16 17:01] LABS: Bedside Glucose 91 mg/dL (70-110)
[2019-02-16] MEDS: Senna Tablet 1 TABLET GT (17:41)
[2019-02-16] MEDS: Docusate Sodium 100 MG/10 ML UDC GT (17:41)
[2019-02-16 17:42] VITALS: BP 85/55; PULSE 98
[2019-02-16] MEDS: Loratadine 10 MG Tablet GT (20:57)
[2019-02-16] MEDS: MELATONIN 10 MG TABLET PO (20:57)
[2019-02-17 00:10] LABS: Bedside Glucose 136 mg/dL (70-110)
[2019-02-17] MEDS: Fluticasone 0.05% 1 SPRAY NASAL.SRY NASAL ×2 (04:04→16:28)
[2019-02-17] MEDS: Clopidogrel Bisulfate 75 MG Tablet GT (04:05)
[2019-02-17] MEDS: Cinacalcet HCl 30 MG Tablet PO ×2 (04:05→16:29)
[2019-02-17] MEDS: Menthol/Lanolin/Calamine/Znox 113 GM Tube 1 APPLIC TOPICAL ×2 (04:05→21:35)
[2019-02-17] MEDS: Nystatin Powder 15gm Bottle 1 APPLIC TOPICAL ×2 (04:05→21:36)
[2019-02-17] MEDS: Senna Tablet 1 TABLET GT ×2 (04:05→16:29)
[2019-02-17] MEDS: Famotidine 20 MG Tablet GT ×2 (04:05→16:29)
[2019-02-17] MEDS: NEPRO TUBE FEED 1,000 ML 60 ML GT (04:05)
[2019-02-17] MEDS: Polyethylene Glycol 3350 17 GM PACKET GT (04:06)
[2019-02-17] MEDS: Docusate Sodium 100 MG/10 ML UDC GT ×2 (04:06→16:28)
[2019-02-17] MEDS: Enoxaparin 40 MG/0.4 ML Syringe SC (04:06)
[2019-02-17 07:16] LABS: Bedside Glucose 121 mg/dL (70-110)
[2019-02-17] MEDS: Aspirin 81 MG TAB.CHEW GT (09:23)
--- NOTE | 2019-02-17 09:34 | NURSING ---
Pt w/20cc residual this AM, Aspirin given via peg. Flused w/100cc sterile water. HOB elevated 30 degrees. resting in bed. at side. Call light in reach. mats on floor at bedside, low position.
[2019-02-17 11:00] LABS: Bedside Glucose 109 mg/dL (70-110)
--- NOTE | 2019-02-17 13:30 | RAD_ITS ---
STUDY: SWALLOWING STUDY REASON FOR EXAM: Male, 73 years old. Dysphagia. TECHNIQUE: The examination was performed with Speech Pathology in attendance. Under fluoroscopic observation, the patient ingested thin barium, thick barium, barium pudding, and barium coated cracker. FLUOROSCOPY TIME: 3:11 minutes/seconds. [id number] images were obtained. RADIOLOGIST INVOLVEMENT: Radiologist was present and providing direct supervision. COMPARISON: None. FINDINGS: The following was observed during swallowing of the various mixtures of barium: Thin Barium: Silent aspiration with ingestion of thin liquids. This improves with the chin tuck maneuver. Thick Barium: There was no evidence of aspiration or laryngeal penetration. Barium Pudding: There was no evidence of aspiration or laryngeal penetration. Barium Coated Cracker: There was no evidence of aspiration or laryngeal penetration. RAD/Swallowing Function w/Video IMPRESSION: Sided aspiration with ingestion of thin liquids. This improves with the chin tuck maneuver. The swallow study findings were discussed with the patient by the speech pathologist at the conclusion of the examination. Please see speech pathology report for more information and recommendations. Electronically Signed: Nigel Jackson, at 14:32 EDT , Service support ,
--- NOTE | 2019-02-17 14:34 | SP.MBSS_ITS ---
PRIMARY / SECONDARY DIAGNOSIS: oropharyngeal dysphagia (R13.12) REFERRING PHYSICIAN: Dr. Lira CURRENT DIET: NPO/sips and chips (FFWP) DENTITION: Endentulous (upper and lower dentures at home) MENTAL STATUS: cognitive-communication deficit present RESPIRATORY STATUS: O2 via room air PREVIOUS MODIFIED BARIUM SWALLOW STUDY: Unknown from patient chart review. REASON FOR REFERRAL: To assess swallow function determining presence/degree of aspiration. MEDICAL HISTORY: The patient is a 73/m with pmhx significant for coronary artery disease, HTN, hyperlipidemia, peripheral arterial occlusive disease, chronic kidney disease, aortic stenosis, allergic rhinitis, anemia, BPH, GERD, bipolar disorder, dyslipidemia, presence of IVC filter,osteoarthritis, history of small bowel obstruction, DVT, history of pulmonary embolism, and family history of kidney stone. Pt underwent aortic valve replacement for aortic stenosis at [facility] 09/23/2019 with postoperative course complicated by circulatory shock. The pt was admitted for change in mental status, elevated WBC and nephrogenic diabetes. While there he had episodes of hypotension secondary to sepsis, went into respiratory distress and was intubated/placed on mechanical ventilation. On 11/08/2018, pt received tracheostomy. On 11/18/2018, the patient was admitted to [facility]. Weaning of trach occured and pt was been capped 2 days prior to TCU admission. The patient has since been decannulated with trials of unthickened water and ice chips while on [facility] TCU. STUDY FINDINGS: Patient participated in a Modified Barium Swallow (MBS) study on 02/17/2019. Dr. Jackson was the radiologist present for this evaluation. This study was recorded in the lateral view and images were sent to PACs for storage. The following consistencies were presented to this patient for analysis of oropharyngeal swallow function: thin liquid, nectar thick liquid, honey thick liquid, pudding, and a regular textured, Silvia Doone cookie. Results of the MBS are as follows: PENETRATION / ASPIRATION SCALE (GÓMEZ): 1 = does not enter airway 2 = enters airway/above vocal folds/ejected 3 = enters airway/above vocal folds/not ejected 4 = enters airway/contacts vocal folds/ejected 5 = enters airway/contacts vocal folds/not ejected 6 = enters airway/below vocal folds/ejected 7 = enters airway/below vocal folds/not ejected despite effort 8 = enters airway/below vocal folds/no effort PENETRATION / ASPIRATION SCALE (SCORE): 1) thin liquids via teaspoon = 1 2) thin liquids via teaspoon = 1 3) thin liquids via small single sip from cup = 1 4) thin liquids via large single sip from cup = 7 5) nectar thick liquids via small single sip from cup = 1 6) nectar thick liquids via large single sip from cup = 1 7) honey thick liquids via small single sip from cup = 1 8) honey thick liquids via large single sip from cup = 1 9) pudding = 1 *piecemeal swallows 10) cookie = 1 * piecemeal swallows 11) thin liquids via cup with chin tuck = 2 12) thin liquids via small sip = 1 IMPRESSION: moderate oropharyngeal dysphagia (R13.12) ORAL PHASE CHARACTERIZED BY: LABIAL SEAL: interlabial escape, no progression to anterior lip TONGUE CONTROL DURING BOLUS MANIPULATION: escape to lateral buccal cavity/floor of mouth BOLUS PREPARATION / MASTICATION: disorganized chewing/mashing with solid pieces of bolus unchewed BOLUS TRANSPORT / LINGUAL MOTION: slowed tongue motion ORAL RESIDUE: residue collection on oral structures PHARYNGEAL PHASE CHARACTERIZED BY: INITIATION OF PHARYNGEAL SWALLOW: bolus head at posterior laryngeal surface of epiglottis at first hyoid excursion SOFT PALATE ELEVATION: trace column of contrast/air between soft palate and pharyngeal wall LARYNGEAL ELEVATION: partial superior movement of thyroid cartilage/partial approximation of arytenoids cartilage to epiglottic petiole ANTERIOR HYOID EXCURSION: partial anterior movement EPIGLOTTIC MOVEMENT: complete epiglottic inversion LARYNGEAL VESTIBULE CLOSURE AT HEIGHT OF SWALLOW: incomplete laryngeal vestibule closure with narrow column of air/contrast in laryngeal vestibule PHARYNGEAL STRIPPING WAVE: pharyngeal stripping wave present / diminished PHARYNGOESOPHAGEAL SEGMENT OPENING: partial distension and partial duration; partial obstruction of flow TONGUE BASE RETRACTION: wide column of contrast between tongue base and posterior pharyngeal wall PHARYNGEAL RESIDUE: collection of residue within or on pharyngeal structures ESOPHAGEAL PHASE CHARACTERIZED BY: ESOPHAGEAL BOLUS CLEARANCE IN THE UPRIGHT POSITION: esophageal coating DIET TEXTURE RECOMMENDATIONS: Will recommend a puree texture/nectar thick liquid diet following completion and patient tolerance of meal analysis. COMPENSATORY STRATEGIES RECOMMENDED: Will recommend 1:1 supervision during any and all PO intake, double swallow for each bite/sip, reduced bolus volume/rate, seated upright at 90 degrees during PO intake and remain upright for 30-60 minutes post meal (GERD precaution), medications with crushed with purees, and verbal cuing throughout meal for use of strategies. INTERPRETATION OF RESULTS: Patient presents with moderate oropharyngeal dysphagia (R13.12) secondary to recent intubation from circulatory shock and sepsis. Oral phase primarily marked by prolonged mastication of Silvia Doone shortbread cookie with piecemeal swallows to clear oral residue. Pharyngeal phase primarily marked by delayed pharyngeal swallow onset timing with all liquid consistencies resulting in suboptimal bolus location upon swallow onset. Patient noted to overtly aspirate during trial of large sips of thin liquid. Clinical assessment at bedside relying on identification of classic overt signs and symptoms of aspiration may be sufficient to determine appropriateness for PO texture upgrade to thin liquids in the future. All deficits ameliorated with bolus volume adjustments. With use of chin tuck with thin liquids, the patient had penetration above the vocal cords with ejection. Increased pharyngeal residue noted secondary to reduced tongue base retraction. Double swallow moderately effective at clearing pharyngeal residue. RECOMMENDATIONS: Patient requires continued intensive skilled speech-language intervention targeting continued diet texture management, training and implementation of recommended compensatory strategies, training and implementation of recommended oropharyngeal strengthening exercises to facilitate improved swallow function, patient and caregiver training targeting meal preparation and thickened liquid preparation, and continued training of Woo Free Water Protocol (FFWP). Results and recommendations were discussed with the patient immediately following MBS completion along with [facility] TCU staff, with the patient and staff verbalizing understanding and agreement with all recommendations and education provided. IMAGE COUNT: [id number] Penny Medina M.A., CCC-MOTOR ASSEMBLY SUPERVISOR Speech Language Pathologist [address] [id number] [place] [address] [email or web address] [phone]
--- NOTE | 2019-02-17 14:51 | NURSING ---
20cc residual after returning from swallow study. hooked pt back to Nepro 60cc/hr per order.
[2019-02-17 15:58] VITALS: BP 87/57; PULSE 101; RESP 18; TEMP 36.9; O2SAT 95
[2019-02-17 16:29] VITALS: PULSE 101
[2019-02-17 16:41] LABS: Bedside Glucose 99 mg/dL (70-110)
--- NOTE | 2019-02-17 18:42 | NURSING ---
Dr Lira notified of low BP's, new order to DC michelle.
--- NOTE | 2019-02-17 18:45 | NURSING ---
0cc residual tonight. pt doing much better. call light in reach. HOB elevated, nepro infusing as ordered.
[2019-02-17] MEDS: Acetaminophen 650 MG/20 ML UDC GT (21:42)
[2019-02-17 22:00] VITALS: RESP 16
[2019-02-17] MEDS: Loratadine 10 MG Tablet GT (22:00)
[2019-02-17] MEDS: MELATONIN 10 MG TABLET PO (22:00)
[2019-02-18 00:06] LABS: Bedside Glucose 127 mg/dL (70-110)
[2019-02-18] MEDS: NEPRO TUBE FEED 1,000 ML 60 ML GT (04:20)
[2019-02-18] MEDS: Fluticasone 0.05% 1 SPRAY NASAL.SRY NASAL ×2 (04:59→17:57)
[2019-02-18] MEDS: Cinacalcet HCl 30 MG Tablet PO ×2 (05:00→17:56)
[2019-02-18] MEDS: Enoxaparin 40 MG/0.4 ML Syringe SC (05:00)
[2019-02-18] MEDS: Famotidine 20 MG Tablet GT ×2 (05:00→17:55)
[2019-02-18] MEDS: Menthol/Lanolin/Calamine/Znox 113 GM Tube 1 APPLIC TOPICAL ×2 (05:00→21:41)
[2019-02-18] MEDS: Clopidogrel Bisulfate 75 MG Tablet GT (05:00)
[2019-02-18] MEDS: Nystatin Powder 15gm Bottle 1 APPLIC TOPICAL ×2 (05:01→21:41)
[2019-02-18 06:01] LABS: Bedside Glucose 125 mg/dL (70-110)
[2019-02-18] MEDS: Aspirin 81 MG TAB.CHEW GT (09:12)
[2019-02-18 11:50] LABS: Bedside Glucose 122 mg/dL (70-110)
--- NOTE | 2019-02-18 13:08 | NURSING ---
SUPPLEMENT [TUBE FEED] D/C AT THIS TIME PER ORDERS AND AHSAN ENGLE. PLACEMENT VERIFIED, NO RESIDUAL, PEG FLUSHED AND SECURED. PT TOLERATED WELL.
[2019-02-18 15:12] VITALS: BP 90/61; PULSE 95; RESP 18; TEMP 36.9; O2SAT 90
[2019-02-18 16:45] LABS: Bedside Glucose 90 mg/dL (70-110)
[2019-02-18 20:05] LABS: Anion Gap 7 (5-15); BUN 34 mg/dL (7-18); BUN/Creat Ratio 23.8 RATIO (10-20); Calcium,Total 9.4 mg/dL (8.5-10.1); Chloride 106 mmol/L (98-107); Creatinine, Serum 1.43 mg/dL (0.70-1.30); EST Glomerular Filtration Rate 51 mL/min (>60); Est Glom Filt Rate - Afr Amer 62 mL/min (>60); Estimated Creatinine Clearance 43.85 ml/min; Glucose 104 mg/dL (74-106); Potassium 3.5 mmol/L (3.5-5.1); Sodium Level 139 mmol/L (136-145)
--- NOTE | 2019-02-18 20:47 | NURSING ---
Addendum entered by Heidy Munoz 02/18/19 20:56: Dr. Lira updated on pts concern of decreased PO intake. Order to flush 400cc q4 via PEG. Original Note: Pt concerned about increased confusion. Dr. Lira aware. NA drawn at 130. Pt A&Ox4 for this nurse. Denies pain/ discomfort. present in room and updated. Daughter Danya called in requesting update. All questions answered for and daughter. Will continue to monitor.
[2019-02-18] MEDS: Loratadine 10 MG Tablet GT (21:39)
[2019-02-18] MEDS: MELATONIN 10 MG TABLET PO (21:39)
[2019-02-19 00:06] LABS: Bedside Glucose 98 mg/dL (70-110)
[2019-02-19] MEDS: Famotidine 20 MG Tablet PO ×2 (04:35→17:34)
[2019-02-19] MEDS: Enoxaparin 40 MG/0.4 ML Syringe SC (04:36)
[2019-02-19] MEDS: Senna Tablet 1 TABLET PO ×2 (04:36→17:34)
[2019-02-19] MEDS: Nystatin Powder 15gm Bottle 1 APPLIC TOPICAL ×2 (04:36→20:44)
[2019-02-19] MEDS: Cinacalcet HCl 30 MG Tablet PO ×2 (04:36→17:34)
[2019-02-19] MEDS: Clopidogrel Bisulfate 75 MG Tablet PO (04:36)
[2019-02-19] MEDS: Menthol/Lanolin/Calamine/Znox 113 GM Tube 1 APPLIC TOPICAL ×2 (04:36→20:44)
[2019-02-19] MEDS: Fluticasone 0.05% 1 SPRAY NASAL.SRY NASAL ×2 (04:37→17:34)
[2019-02-19 07:30] LABS: Absolute Lymphocyte Count 1.83 X10^3/ul (0.83-4.51); Absolute Neutrophil Count 4.4 X10^3/uL (2.0-7.7); Basophil# 0.09 X10^3/uL; Basophil% 1.2 % (0-1); Eosinophil# 0.36 X10^3/uL; Eosinophils% 4.8 % (0-5); Hematocrit 35.9 % (40-54); Hemoglobin 11.4 g/dl (13.0-16.5); Lymphocyte # 1.83 X10^3/ul (4.0); Lymphocyte % 24.6 % (19-41); Mean Corp Hgb Conc 31.8 g/gl (32-36); Mean Corpuscular Hgb 30.6 pg (27.0-32.0); Mean Corpuscular Volume 96.2 fL (80-94); Mean Platelet Vol. 10.3 fl (6.2-12.0); Monocyte# 0.77 X10^3/uL; Monocyte% 10.3 % (0-10); Neutrophil # 4.35 X10^3/uL (2.7-7.7); Neutrophil % 58.4 % (47-70); Platelet Count 382 K/mm3 (150-450); RBC Distribution Width CV 15.3 % (11.6-14.6); RBC Distribution Width SD 53.8 fl (35.1-43.9); Red Blood Count 3.73 M/mm3 (4.6-6.2); White Blood Count 7.5 K/mm3 (4.4-11.0)
[2019-02-19 07:31] LABS: POSITIVE COUNT NO; POSITIVE DIFFERENTIAL NO; POSITIVE MORPHOLOGY NO
[2019-02-19 07:34] LABS: Anion Gap 8 (5-15); BUN 29 mg/dL (7-18); BUN/Creat Ratio 19.6 RATIO (10-20); Calcium,Total 9.2 mg/dL (8.5-10.1); Chloride 106 mmol/L (98-107); Creatinine, Serum 1.48 mg/dL (0.70-1.30); EST Glomerular Filtration Rate 49 mL/min (>60); Est Glom Filt Rate - Afr Amer 60 mL/min (>60); Estimated Creatinine Clearance 42.36 ml/min; Glucose 95 mg/dL (74-106); Potassium 3.9 mmol/L (3.5-5.1); Sodium Level 142 mmol/L (136-145)
[2019-02-19] MEDS: Aspirin 81 MG TAB.CHEW PO (08:39)
[2019-02-19 09:41] LABS: Bedside Glucose 109 mg/dL (70-110)
[2019-02-19 15:32] VITALS: BP 92/65; PULSE 102; RESP 20; TEMP 37; O2SAT 96
[2019-02-19] MEDS: Docusate Sodium 100 MG/10 ML UDC PO (17:34)
[2019-02-19] MEDS: Loratadine 10 MG Tablet PO (20:42)
[2019-02-19] MEDS: MELATONIN 10 MG TABLET PO (20:43)
[2019-02-20] MEDS: Docusate Sodium 100 MG/10 ML UDC PO ×2 (04:45→17:06)
[2019-02-20] MEDS: Polyethylene Glycol 3350 17 GM PACKET PO (04:46)
[2019-02-20] MEDS: Enoxaparin 40 MG/0.4 ML Syringe SC (04:48)
[2019-02-20] MEDS: Clopidogrel Bisulfate 75 MG Tablet PO (04:49)
[2019-02-20] MEDS: Senna Tablet 1 TABLET PO ×2 (04:49→17:06)
[2019-02-20] MEDS: Cinacalcet HCl 30 MG Tablet PO ×2 (04:49→17:06)
[2019-02-20] MEDS: Famotidine 20 MG Tablet PO ×2 (04:49→17:06)
[2019-02-20] MEDS: Fluticasone 0.05% 1 SPRAY NASAL.SRY NASAL ×2 (04:51→17:06)
[2019-02-20] MEDS: Menthol/Lanolin/Calamine/Znox 113 GM Tube 1 APPLIC TOPICAL ×2 (04:51→21:03)
[2019-02-20] MEDS: Nystatin Powder 15gm Bottle 1 APPLIC TOPICAL ×2 (04:51→21:04)
[2019-02-20 06:40] LABS: Bedside Glucose 105 mg/dL (70-110)
[2019-02-20] MEDS: Aspirin 81 MG TAB.CHEW PO (07:37)
[2019-02-20 14:10] VITALS: BP 97/62; PULSE 99; RESP 16; TEMP 37.5; O2SAT 96
[2019-02-20] MEDS: MELATONIN 10 MG TABLET PO (20:58)
[2019-02-20] MEDS: Loratadine 10 MG Tablet PO (20:58)
[2019-02-21] MEDS: Enoxaparin 40 MG/0.4 ML Syringe SC (04:42)
[2019-02-21] MEDS: Clopidogrel Bisulfate 75 MG Tablet PO (04:43)
[2019-02-21] MEDS: Cinacalcet HCl 30 MG Tablet PO ×2 (04:43→17:00)
[2019-02-21] MEDS: Famotidine 20 MG Tablet PO ×2 (04:43→17:01)
[2019-02-21] MEDS: Senna Tablet 1 TABLET PO ×2 (04:43→17:00)
[2019-02-21] MEDS: Polyethylene Glycol 3350 17 GM PACKET PO (04:43)
[2019-02-21] MEDS: Docusate Sodium 100 MG/10 ML UDC PO (04:43)
[2019-02-21] MEDS: Fluticasone 0.05% 1 SPRAY NASAL.SRY NASAL ×2 (04:45→17:00)
[2019-02-21] MEDS: Menthol/Lanolin/Calamine/Znox 113 GM Tube 1 APPLIC TOPICAL ×2 (04:49→21:35)
[2019-02-21] MEDS: Nystatin Powder 15gm Bottle 1 APPLIC TOPICAL ×2 (04:49→21:35)
[2019-02-21 06:31] LABS: Bedside Glucose 106 mg/dL (70-110)
[2019-02-21] MEDS: Acetaminophen 325 MG Tablet 650 MG PO (08:08)
[2019-02-21] MEDS: Aspirin 81 MG TAB.CHEW PO (08:08)
--- NOTE | 2019-02-21 08:46 | NURSING ---
pt complained of itchy back. small red spots all of back. reported to ivon kuo
[2019-02-21 12:35] VITALS: PULSE 110; RESP 18; O2SAT 96
[2019-02-21 15:48] VITALS: BP 112/76; PULSE 89; RESP 18; TEMP 36.6; O2SAT 94
[2019-02-21] MEDS: Docusate Sodium 100 MG/10 ML UDC GT (17:00)
[2019-02-21] MEDS: Loratadine 10 MG Tablet PO (21:33)
[2019-02-21] MEDS: MELATONIN 10 MG TABLET PO (21:33)
[2019-02-22] MEDS: Enoxaparin 40 MG/0.4 ML Syringe SC (05:31)
[2019-02-22] MEDS: Polyethylene Glycol 3350 17 GM PACKET PO (05:31)
[2019-02-22] MEDS: Cinacalcet HCl 30 MG Tablet PO ×2 (05:31→17:30)
[2019-02-22] MEDS: Docusate Sodium 100 MG/10 ML UDC GT ×2 (05:31→17:30)
[2019-02-22] MEDS: Famotidine 20 MG Tablet PO ×2 (05:31→17:30)
[2019-02-22] MEDS: Clopidogrel Bisulfate 75 MG Tablet PO (05:31)
[2019-02-22] MEDS: Senna Tablet 1 TABLET PO ×2 (05:31→17:30)
[2019-02-22] MEDS: Menthol/Lanolin/Calamine/Znox 113 GM Tube 1 APPLIC TOPICAL ×2 (05:31→21:31)
[2019-02-22] MEDS: Fluticasone 0.05% 1 SPRAY NASAL.SRY NASAL ×2 (05:31→17:35)
[2019-02-22] MEDS: Nystatin Powder 15gm Bottle 1 APPLIC TOPICAL ×2 (05:32→21:31)
[2019-02-22 06:50] LABS: Bedside Glucose 112 mg/dL (70-110)
[2019-02-22] MEDS: Aspirin 81 MG TAB.CHEW PO (07:32)
--- NOTE | 2019-02-22 08:53 | MDS.RN ---
Information for the mds was obtained from review of the clinical record, interview of resident, staff, and direct observation of resident's care.
[2019-02-22 16:00] VITALS: BP 95/69; PULSE 67; RESP 18; TEMP 36.8; O2SAT 99
[2019-02-22] MEDS: MELATONIN 10 MG TABLET PO (21:32)
[2019-02-22] MEDS: Loratadine 10 MG Tablet PO (21:32)
[2019-02-23] MEDS: Docusate Sodium 100 MG/10 ML UDC GT ×2 (06:32→18:03)
[2019-02-23] MEDS: Polyethylene Glycol 3350 17 GM PACKET PO (06:33)
[2019-02-23] MEDS: Enoxaparin 40 MG/0.4 ML Syringe SC (06:37)
[2019-02-23] MEDS: Senna Tablet 1 TABLET PO ×2 (06:38→18:03)
[2019-02-23] MEDS: Clopidogrel Bisulfate 75 MG Tablet PO (06:38)
[2019-02-23] MEDS: Cinacalcet HCl 30 MG Tablet PO ×2 (06:38→18:03)
[2019-02-23] MEDS: Aspirin 81 MG TAB.CHEW PO (06:38)
[2019-02-23] MEDS: Famotidine 20 MG Tablet PO ×2 (06:38→18:03)
[2019-02-23] MEDS: Fluticasone 0.05% 1 SPRAY NASAL.SRY NASAL ×2 (06:41→18:03)
[2019-02-23] MEDS: Menthol/Lanolin/Calamine/Znox 113 GM Tube 1 APPLIC TOPICAL ×2 (06:43→20:52)
[2019-02-23] MEDS: Nystatin Powder 15gm Bottle 1 APPLIC TOPICAL ×2 (06:43→20:52)
--- NOTE | 2019-02-23 06:50 | NURSING ---
In to give patient suppository at this time. Patient refusing suppository states I had a large bowel movement yesterday.
[2019-02-23 06:56] LABS: Bedside Glucose 102 mg/dL (70-110)
[2019-02-23 09:40] VITALS: PULSE 97; RESP 18; O2SAT 97
[2019-02-23 15:46] VITALS: BP 89/62; PULSE 94; RESP 20; TEMP 37; O2SAT 96
[2019-02-23] MEDS: Loratadine 10 MG Tablet PO (20:52)
[2019-02-23] MEDS: MELATONIN 10 MG TABLET PO (20:52)
[2019-02-24] MEDS: Docusate Sodium 100 MG/10 ML UDC GT ×2 (05:50→17:26)
[2019-02-24] MEDS: Famotidine 20 MG Tablet PO ×2 (05:50→17:26)
[2019-02-24] MEDS: Clopidogrel Bisulfate 75 MG Tablet PO (05:51)
[2019-02-24] MEDS: Enoxaparin 40 MG/0.4 ML Syringe SC (05:51)
[2019-02-24] MEDS: Polyethylene Glycol 3350 17 GM PACKET PO (05:51)
[2019-02-24] MEDS: Cinacalcet HCl 30 MG Tablet PO ×2 (05:51→17:26)
[2019-02-24] MEDS: Senna Tablet 1 TABLET PO ×2 (05:51→17:26)
[2019-02-24] MEDS: Fluticasone 0.05% 1 SPRAY NASAL.SRY NASAL ×2 (05:59→17:26)
[2019-02-24] MEDS: Nystatin Powder 15gm Bottle 1 APPLIC TOPICAL ×2 (06:00→20:55)
[2019-02-24] MEDS: Menthol/Lanolin/Calamine/Znox 113 GM Tube 1 APPLIC TOPICAL ×2 (06:00→20:57)
[2019-02-24 06:46] LABS: Bedside Glucose 91 mg/dL (70-110)
[2019-02-24] MEDS: Aspirin 81 MG TAB.CHEW PO (08:02)
--- NOTE | 2019-02-24 09:28 | NURSING ---
Per speech therapy, upgrade to mechanical soft diet.
[2019-02-24 15:13] VITALS: BP 94/63; PULSE 108; RESP 16; TEMP 37.1; O2SAT 96
[2019-02-24] MEDS: MELATONIN 10 MG TABLET PO (20:50)
[2019-02-24] MEDS: Loratadine 10 MG Tablet PO (20:50)
[2019-02-24 20:58] VITALS: O2SAT 95
[2019-02-25] MEDS: Polyethylene Glycol 3350 17 GM PACKET PO (05:28)
[2019-02-25] MEDS: Famotidine 20 MG Tablet PO ×2 (05:29→18:07)
[2019-02-25] MEDS: Senna Tablet 1 TABLET PO ×2 (05:29→18:07)
[2019-02-25] MEDS: Docusate Sodium 100 MG/10 ML UDC GT ×2 (05:29→18:06)
[2019-02-25] MEDS: Clopidogrel Bisulfate 75 MG Tablet PO (05:29)
[2019-02-25] MEDS: Cinacalcet HCl 30 MG Tablet PO ×2 (05:29→18:07)
[2019-02-25] MEDS: Enoxaparin 40 MG/0.4 ML Syringe SC (05:29)
[2019-02-25] MEDS: Menthol/Lanolin/Calamine/Znox 113 GM Tube 1 APPLIC TOPICAL ×2 (05:34→21:17)
[2019-02-25] MEDS: Fluticasone 0.05% 1 SPRAY NASAL.SRY NASAL ×2 (05:34→18:07)
[2019-02-25] MEDS: Nystatin Powder 15gm Bottle 1 APPLIC TOPICAL ×2 (05:34→21:17)
[2019-02-25] MEDS: Aspirin 81 MG TAB.CHEW PO (08:29)
[2019-02-25 15:32] VITALS: BP 99/58; PULSE 96; RESP 18; TEMP 36.4; O2SAT 94
[2019-02-25] MEDS: MELATONIN 10 MG TABLET PO (21:17)
[2019-02-25] MEDS: Loratadine 10 MG Tablet PO (21:17)
[2019-02-26] MEDS: Senna Tablet 1 TABLET PO ×2 (05:15→17:52)
[2019-02-26] MEDS: Clopidogrel Bisulfate 75 MG Tablet PO (05:15)
[2019-02-26] MEDS: Famotidine 20 MG Tablet PO ×2 (05:15→17:52)
[2019-02-26] MEDS: Fluticasone 0.05% 1 SPRAY NASAL.SRY NASAL ×2 (05:15→17:52)
[2019-02-26] MEDS: Cinacalcet HCl 30 MG Tablet PO ×2 (05:15→17:52)
[2019-02-26] MEDS: Nystatin Powder 15gm Bottle 1 APPLIC TOPICAL ×2 (05:16→20:45)
[2019-02-26] MEDS: Menthol/Lanolin/Calamine/Znox 113 GM Tube 1 APPLIC TOPICAL ×2 (05:16→20:45)
[2019-02-26] MEDS: Enoxaparin 40 MG/0.4 ML Syringe SC (05:16)
[2019-02-26] MEDS: Aspirin 81 MG TAB.CHEW PO (07:32)
[2019-02-26 08:13] LABS: Absolute Lymphocyte Count 1.52 X10^3/ul (0.83-4.51); Absolute Neutrophil Count 3.7 X10^3/uL (2.0-7.7); Basophil# 0.08 X10^3/uL; Basophil% 1.4 % (0-1); Eosinophil# 0.25 X10^3/uL; Eosinophils% 4.3 % (0-5); Hematocrit 37.9 % (40-54); Hemoglobin 11.9 g/dl (13.0-16.5); Lymphocyte # 1.52 X10^3/ul (4.0); Mean Corp Hgb Conc 31.4 g/gl (32-36); Mean Corpuscular Hgb 30.2 pg (27.0-32.0); Mean Corpuscular Volume 96.2 fL (80-94); Monocyte# 0.31 X10^3/uL; Monocyte% 5.3 % (0-10); Neutrophil # 3.66 X10^3/uL (2.7-7.7); Neutrophil % 62.5 % (47-70); Platelet Count 423 K/mm3 (150-450); RBC Distribution Width CV 14.9 % (11.6-14.6); RBC Distribution Width SD 52.6 fl (35.1-43.9); Red Blood Count 3.94 M/mm3 (4.6-6.2); White Blood Count 5.9 K/mm3 (4.4-11.0)
[2019-02-26 08:15] LABS: POSITIVE COUNT NO; POSITIVE DIFFERENTIAL NO; POSITIVE MORPHOLOGY NO
[2019-02-26 08:31] LABS: Anion Gap 12 (5-15); BUN 18 mg/dL (7-18); BUN/Creat Ratio 11.6 RATIO (10-20); Calcium,Total 8.6 mg/dL (8.5-10.1); Chloride 107 mmol/L (98-107); Creatinine, Serum 1.55 mg/dL (0.70-1.30); EST Glomerular Filtration Rate 47 mL/min (>60); Est Glom Filt Rate - Afr Amer 57 mL/min (>60); Estimated Creatinine Clearance 40.45 ml/min; Glucose 112 mg/dL (74-106); Sodium Level 143 mmol/L (136-145)
[2019-02-26 10:50] VITALS: PULSE 98; RESP 18; O2SAT 98
[2019-02-26 15:53] VITALS: BP 115/81; PULSE 89; RESP 18; TEMP 37.1; O2SAT 93
[2019-02-26] MEDS: Loratadine 10 MG Tablet PO (20:43)
[2019-02-26] MEDS: MELATONIN 10 MG TABLET PO (20:45)
--- NOTE | 2019-02-26 22:00 | NURSING ---
Went into patient's room to flush peg tube per order. Patient refused at this time stating I don't need to be flushed at this time, I am sleeping. Will try and flush peg tube at 0200 per order.
[2019-02-27] MEDS: Clopidogrel Bisulfate 75 MG Tablet PO (05:14)
[2019-02-27] MEDS: Famotidine 20 MG Tablet PO ×2 (05:14→17:59)
[2019-02-27] MEDS: Cinacalcet HCl 30 MG Tablet PO ×2 (05:14→17:59)
[2019-02-27] MEDS: Senna Tablet 1 TABLET PO ×2 (05:14→17:59)
[2019-02-27] MEDS: Enoxaparin 40 MG/0.4 ML Syringe SC (05:15)
[2019-02-27] MEDS: Menthol/Lanolin/Calamine/Znox 113 GM Tube 1 APPLIC TOPICAL ×2 (05:20→20:38)
[2019-02-27] MEDS: Fluticasone 0.05% 1 SPRAY NASAL.SRY NASAL ×2 (05:20→17:57)
[2019-02-27] MEDS: Nystatin Powder 15gm Bottle 1 APPLIC TOPICAL ×2 (05:21→20:39)
[2019-02-27] MEDS: Aspirin 81 MG TAB.CHEW PO (07:38)
--- NOTE | 2019-02-27 07:40 | NURSING ---
PT SPILLED POP ALL OVER HIS SELF. PT REFUSING TO CHANGE CLOTHES,STATED IT WILL BE ALL RIGHT. REPORTED TO AHSAN ALVARENGA
[2019-02-27] MEDS: Acetaminophen 325 MG Tablet 650 MG PO ×2 (10:47→17:59)
--- NOTE | 2019-02-27 10:52 | NURSING ---
PT REFUSED PEG FLUSH AT THIS TIME. REPORTED TO AHSAN ALVARENGA
[2019-02-27 15:33] VITALS: BP 92/61; PULSE 59; RESP 18; TEMP 36.9; O2SAT 95
[2019-02-27] MEDS: Docusate Sodium 100 MG Capsule PO (17:59)
[2019-02-27] MEDS: MELATONIN 10 MG TABLET PO (20:38)
[2019-02-27] MEDS: Loratadine 10 MG Tablet PO (20:38)
[2019-02-28] MEDS: Senna Tablet 1 TABLET PO ×2 (05:42→17:27)
[2019-02-28] MEDS: Clopidogrel Bisulfate 75 MG Tablet PO (05:42)
[2019-02-28] MEDS: Enoxaparin 40 MG/0.4 ML Syringe SC (05:42)
[2019-02-28] MEDS: Docusate Sodium 100 MG Capsule PO ×2 (05:42→17:25)
[2019-02-28] MEDS: Famotidine 20 MG Tablet PO ×2 (05:42→17:25)
[2019-02-28] MEDS: Cinacalcet HCl 30 MG Tablet PO ×2 (05:42→17:26)
[2019-02-28] MEDS: Fluticasone 0.05% 1 SPRAY NASAL.SRY NASAL ×2 (05:46→17:24)
[2019-02-28] MEDS: Menthol/Lanolin/Calamine/Znox 113 GM Tube 1 APPLIC TOPICAL ×2 (05:47→21:57)
[2019-02-28] MEDS: Nystatin Powder 15gm Bottle 1 APPLIC TOPICAL ×2 (05:47→21:57)
[2019-02-28] MEDS: Aspirin 81 MG TAB.CHEW PO (08:41)
[2019-02-28 11:00] VITALS: PULSE 72; RESP 18; O2SAT 96
[2019-02-28 14:12] VITALS: BP 103/65; PULSE 110; RESP 18; TEMP 36.5; O2SAT 98
[2019-02-28] MEDS: Acetaminophen 325 MG Tablet 650 MG PO (17:30)
--- NOTE | 2019-02-28 21:16 | PCM.TCUNOT ---
Subjective: Resident seen in room, sitting in recliner. He has no new complaints. Dr. Roberts decannulated tracheostomy 02/04/2019. He has been doing well ever since. Vitals/I&O's: Vital Signs Temp Pulse Resp BP Pulse Ox 97.7 F L 110 H 18 103/65 98 02/28/19 14:12 02/28/19 14:12 02/28/19 14:12 02/28/19 14:12 02/28/19 14:12 Oxygen Flow Rate (L/min) 2 Oxygen Delivery Method Room Air Weight: 71.838 kg Body Mass Index (BMI) 23.8 Intake and Output for Last 24 Hours 02/26/19 02/27/19 02/28/19 23:59 23:59 23:59 Intake Total 1920 / 1920 1060 / 1060 1440 / 1440 Output Total 1225 / 1225 1475 / 1475 Balance 695 / 695 1060 / 1060 -35 / -35 Past Medical History Past Medical History (Chronic Problems): Chronic Problems (Last Updated 01/20/18 @ 15:50 by Lora Mcguire) Coronary artery disease (Chronic) Hypertension (Chronic) Hyperlipidemia (Chronic) Peripheral arterial occlusive disease (Chronic) Chronic kidney disease (Chronic) Deep venous thrombosis (Chronic) Pulmonary embolism (Chronic) Bipolar disorder (Chronic) Aortic stenosis (Chronic) Allergic rhinitis (Chronic) Anemia (Chronic) BPH (benign prostatic hyperplasia) (Chronic) GERD (gastroesophageal reflux disease) (Chronic) Bipolar disorder (Chronic) Dyslipidemia (Chronic) Presence of IVC filter (Chronic) Osteoarthritis (Chronic) History of small bowel obstruction (Chronic) History of DVT (deep vein thrombosis) (Chronic) History of pulmonary embolism (Chronic) Family history of kidney stone (Chronic) Medical History: Medical History (Last Updated 01/20/18 @ 15:50 by Lora Mcguire) Presence of IVC filter (Chronic) Z95.828 Osteoarthritis (Chronic) History of small bowel obstruction (Chronic) Z87.19 History of DVT (deep vein thrombosis) (Chronic) Z86.718 History of pulmonary embolism (Chronic) Z86.711 Family history of kidney stone (Chronic) Cardiac murmur R01.1 GERD (gastroesophageal reflux disease) K21.9 Bipolar 1 disorder F31.9 Hip fracture, left S72.002A Allergies penicillin V Allergy (Mild, Verified 04/04/18 15:55) hives codeine Adverse Reaction (Mild, Verified 01/20/18 15:55) upset stomach divalproex sodium [From Depakote] Adverse Reaction (Verified 01/29/19 01:28) Other Per family, pt became very comatose on medication haloperidol [From Haldol] Adverse Reaction (Verified 01/29/19 01:29) Other Per family, pt became very comatose on medication pecans Allergy (Mild, Uncoded 12/22/17 12:55) stomach cramps Home Medications: Ambulatory Orders Medication Instructions Recorded Acetaminophen [Tylenol] 650 mg GT Q4H PRN PRN 01/28/19 Aspirin 81 mg GT DAILY 01/28/19 Bisacodyl 10 mg RC DAILY PRN PRN 01/28/19 Blm Mouthwash 5 ml PO Q4H 01/28/19 Cetirizine HCl 10 mg GT QHS 01/28/19 Clopidogrel Bisulfate [Plavix] 75 mg GT DAILY 01/28/19 Docusate Sodium [Stool Softener] 10 ml GT BID 01/28/19 Famotidine 20 mg GT BID 01/28/19 Fluticasone Propionate 1 spray NASAL BID 01/28/19 Guaifenesin Dm [Robitussin Dm] 5 ml GT Q6H PRN PRN 01/28/19 Heparin Injection 5,000 units SQ BID 01/28/19 Ipratropium/Albuterol Sulfate 3 ml INHALATION Q4H PRN PRN 01/28/19 [Iprat-Albut 0.5-3(2.5) mg/3 ml] Metoprolol Tartrate 25 mg GT BID 01/28/19 Mineral Oil/Petrolatum,White 1 applicatio EACH EYE DAILY PRN PRN 01/28/19 [Refresh Lacri-Lube Ointment] Nepro Tube Feed [Nepro Carb Steady] 60 ml GT 01/28/19 Polyethylene Glycol 3350 [Miralax] 17 gm GT DAILY 01/28/19 Polyvinyl Alcohol [Liquitears] 2 drop OPHTHALMIC 4X/DAY 01/28/19 Sennosides [Senna] 8.6 mg GT BID 01/28/19 Sensipar 30 mg GT BID 01/28/19 Surgical History: Surgical History (Last Updated 01/20/18 @ 15:53 by Lora Mcguire) 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 S/P arthroscopy of right knee Z98.890 S/P cataract extraction Z98.49 S/P cholecystectomy Z90.49 Status post arthroscopy of left knee Z98.890 Cataract extraction status of left eye Z98.42 H/O knee surgery Z98.890 bilateral S/P cholecystectomy Z90.49 S/P eye surgery Z98.890 removed right Status post left foot surgery Z98.890 fracture,, had pins but then removed donated kidney left shoulder surgery Surgical History: cataract - Left., cholecystectomy - Laparoscopic., tonsillectomy, - - Aortic Valve Replacement, Nephrectomy, Bilateral carotid artery stents, IVC filter, Bilateral knee arthroscopy, Left foot defect. Psychiatric History: Bipolar Lives: Spouse/ Significant Other Smoking Status: Former smoker Tobacco Use: Non-smoker Alcohol: None Drugs: None - *Family History Maternal Family History: Family History (Last Updated 01/20/18 @ 15:54 by Lora Mcguire) Brother Diabetes Mother Heart disease Sister Heart disease History Items: No pertinent history Paternal Family History: Family History (Last Updated 01/20/18 @ 15:54 by Lora Mcguire) Brother Diabetes Mother Heart disease Sister Heart disease History Items: No pertinent history Capacity - Capacity Assessment Tool Can the patient make a choice & communicate that choice?: Yes Can the patient understand benefits, risks and alternatives?: Yes Can the patient make a logical, rational choice?: Yes Is the choice the patient makes consistent w/ their values?: Yes Is there an impending, emergent risk to the patient?: No Does the patient have an Advance Directive?: Yes Is there a Surrogate Available?: Yes i.e. HCPOA: Yes i.e. close relative (spouse, child, parent, sibling)?: Yes Review of Systems Constitutional: Denies: Chills, Fever, Weight Change HEENT: Denies: Head Aches, Sinus Congestion, Sinus Drainage Cardiovascular: Denies: Chest Pain, Palpitations Respiratory: Denies: Cough, Shortness of breath at rest, Sputum production Gastrointestinal: Denies: Abdominal Pain, Nausea, Vomiting Genitourinary: Denies: Dysuria Musculoskeletal: Denies: Joint Pain, Joint Tenderness Skin: Denies: Rash, Wounds Neurological: Denies: Numbness, Tingling, Focal weakness Psychiatric: Denies: Anxiety, Depression, Homicidal Ideations, Suicidal Ideations Hematologic/ Lymphatic: Denies: Easy Bruising, Easy Bleeding Patient Problems: Active and Suspected Problems (Last Updated 01/20/18 @ 15:53 by Lora Mcguire) Acute respiratory failure (Acute) Acute kidney injury (Acute) Encephalopathy (Acute) Status post emergency tracheotomy for assistance in breathing (Acute) - Physical Exam General: Alert, Oriented x3, Cooperative HEENT: Atraumatic, PERRLA, EOMI, Normocephalic Neck: Supple, No JVD, Negative Carotid Bruits, - - Tracheostomy healed. Lungs: Clear to auscultation, Normal air movement Cardiovascular: Regular rate, No murmurs Abdomen: Bowel Sounds Present, Soft, Non Tender Extremities: No edema, Capillary Refill Less than 3 Seconds Skin: No rashes, No breakdown Musculoskeletal: No Tenderness to Palpation of Joints or Extremities Neurological: Cranial nerves II-XII grossly intact Psych/Mental Status: Normal Affect, Appropriate Vital Signs Temp Pulse Resp BP Pulse Ox 97.7 F L 110 H 18 103/65 98 02/28/19 14:12 02/28/19 14:12 02/28/19 14:12 02/28/19 14:12 02/28/19 14:12 Oxygen Flow Rate (L/min) 2 Oxygen Delivery Method Room Air Weight: 71.838 kg Body Mass Index (BMI) 23.8 Intake and Output for Last 24 Hours 02/26/19 02/27/19 02/28/19 23:59 23:59 23:59 Intake Total 1920 / 1920 1060 / 1060 1440 / 1440 Output Total 1225 / 1225 1475 / 1475 Balance 695 / 695 1060 / 1060 -35 / -35 Assessment/Plan All Active Problems (Last Updated 01/20/18 @ 15:50 by Lora Mcguire) Acute respiratory failure (Acute) Acute kidney injury (Acute) Encephalopathy (Acute) Status post emergency tracheotomy for assistance in breathing (Acute) Carotid stenosis, bilateral (Acute) 73 year old male with below past medical history hospitalized 09/23/2019 for aortic valve replacement, complicated postoperative course, admitted to [facility], transferred to TCU with debility, here for rehabilitation, strengthening, prior to disposition determination. Debility - PT/OT. Dysphagia - ST. Pain - Tylenol 650MG Q4H PRN pain. Bowel - Miralax 17GM daily, Colace 100MG BID, Senna 8.6MG BID, Dulcolax 10MG MI daily PRN. Pneumonia vaccination - Administer Prevnar 13 and/or Pneumovax 23 as needed. DVT prophylaxis - Lovenox 40MG SC daily. Coronary Artery Disease - Metoprolol 25MG BID, Plavix 75MG daily, Aspirin 81MG daily. Allergic Rhinitis - Loratadine 10MG daily, Flonase 1 spray daily. Hypertension - Enalapril 1.25MG IV Q6H PRN systolic blood pressure > 165, Metoprolol 5MG IV Q6H PRN systolic blood pressure > 160. GERD - Famotidine 20MG twice daily. Cough - Robitussin DM 5ML Q4H PRN. Shortness of breath - Duoneb 3ML Q4H PRN. Dry eyes - Artificial tears 2GTT QID, Lacri lube 1 application OU PRN. Nausea - Zofran 4MG IV Q6H PRN. Hyperparathyroidism - Senispar 30MG BID. Insomnia - Melatonin 10MG QHS. Skin irritation - Calmoseptine BID. Tinea Corporis - Nystatin powder BID.
--- NOTE | 2019-02-28 21:21 | PN_ITS ---
Subjective: Resident seen in room, sitting in recliner. He has no new complaints. Dr. Roberts decannulated tracheostomy 02/04/2019. He has been doing well ever since. Vitals/I&O's: Vital Signs Temp Pulse Resp BP Pulse Ox 97.7 F L 110 H 18 103/65 98 02/28/19 14:12 02/28/19 14:12 02/28/19 14:12 02/28/19 14:12 02/28/19 14:12 Oxygen Flow Rate (L/min) 2 Oxygen Delivery Method Room Air Weight: 71.838 kg Body Mass Index (BMI) 23.8 Intake and Output for Last 24 Hours 02/26/19 02/27/19 02/28/19 23:59 23:59 23:59 Intake Total 1920 / 1920 1060 / 1060 1440 / 1440 Output Total 1225 / 1225 1475 / 1475 Balance 695 / 695 1060 / 1060 -35 / -35 Past Medical History Past Medical History (Chronic Problems): Chronic Problems (Last Updated 01/20/18 @ 15:50 by Lora Mcguire) Coronary artery disease (Chronic) Hypertension (Chronic) Hyperlipidemia (Chronic) Peripheral arterial occlusive disease (Chronic) Chronic kidney disease (Chronic) Deep venous thrombosis (Chronic) Pulmonary embolism (Chronic) Bipolar disorder (Chronic) Aortic stenosis (Chronic) Allergic rhinitis (Chronic) Anemia (Chronic) BPH (benign prostatic hyperplasia) (Chronic) GERD (gastroesophageal reflux disease) (Chronic) Bipolar disorder (Chronic) Dyslipidemia (Chronic) Presence of IVC filter (Chronic) Osteoarthritis (Chronic) History of small bowel obstruction (Chronic) History of DVT (deep vein thrombosis) (Chronic) History of pulmonary embolism (Chronic) Family history of kidney stone (Chronic) Medical History: Medical History (Last Updated 01/20/18 @ 15:50 by Lora Mcguire) Presence of IVC filter (Chronic) Z95.828 Osteoarthritis (Chronic) History of small bowel obstruction (Chronic) Z87.19 History of DVT (deep vein thrombosis) (Chronic) Z86.718 History of pulmonary embolism (Chronic) Z86.711 Family history of kidney stone (Chronic) Cardiac murmur R01.1 GERD (gastroesophageal reflux disease) K21.9 Bipolar 1 disorder F31.9 Hip fracture, left S72.002A Allergies penicillin V Allergy (Mild, Verified 04/04/18 15:55) hives codeine Adverse Reaction (Mild, Verified 01/20/18 15:55) upset stomach divalproex sodium [From Depakote] Adverse Reaction (Verified 01/29/19 01:28) Other Per family, pt became very comatose on medication haloperidol [From Haldol] Adverse Reaction (Verified 01/29/19 01:29) Other Per family, pt became very comatose on medication pecans Allergy (Mild, Uncoded 12/22/17 12:55) stomach cramps Home Medications: Ambulatory Orders Medication Instructions Recorded Acetaminophen [Tylenol] 650 mg GT Q4H PRN PRN 01/28/19 Aspirin 81 mg GT DAILY 01/28/19 Bisacodyl 10 mg RC DAILY PRN PRN 01/28/19 Blm Mouthwash 5 ml PO Q4H 01/28/19 Cetirizine HCl 10 mg GT QHS 01/28/19 Clopidogrel Bisulfate [Plavix] 75 mg GT DAILY 01/28/19 Docusate Sodium [Stool Softener] 10 ml GT BID 01/28/19 Famotidine 20 mg GT BID 01/28/19 Fluticasone Propionate 1 spray NASAL BID 01/28/19 Guaifenesin Dm [Robitussin Dm] 5 ml GT Q6H PRN PRN 01/28/19 Heparin Injection 5,000 units SQ BID 01/28/19 Ipratropium/Albuterol Sulfate 3 ml INHALATION Q4H PRN PRN 01/28/19 [Iprat-Albut 0.5-3(2.5) mg/3 ml] Metoprolol Tartrate 25 mg GT BID 01/28/19 Mineral Oil/Petrolatum,White 1 applicatio EACH EYE DAILY PRN PRN 01/28/19 [Refresh Lacri-Lube Ointment] Nepro Tube Feed [Nepro Carb Steady] 60 ml GT 01/28/19 Polyethylene Glycol 3350 [Miralax] 17 gm GT DAILY 01/28/19 Polyvinyl Alcohol [Liquitears] 2 drop OPHTHALMIC 4X/DAY 01/28/19 Sennosides [Senna] 8.6 mg GT BID 01/28/19 Sensipar 30 mg GT BID 01/28/19 Surgical History: Surgical History (Last Updated 01/20/18 @ 15:53 by Lora Mcguire) 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 S/P arthroscopy of right knee Z98.890 S/P cataract extraction Z98.49 S/P cholecystectomy Z90.49 Status post arthroscopy of left knee Z98.890 Cataract extraction status of left eye Z98.42 H/O knee surgery Z98.890 bilateral S/P cholecystectomy Z90.49 S/P eye surgery Z98.890 removed right Status post left foot surgery Z98.890 fracture,, had pins but then removed donated kidney left shoulder surgery Surgical History: cataract - Left., cholecystectomy - Laparoscopic., tonsillectomy, - - Aortic Valve Replacement, Nephrectomy, Bilateral carotid artery stents, IVC filter, Bilateral knee arthroscopy, Left foot defect. Psychiatric History: Bipolar Lives: Spouse/ Significant Other Smoking Status: Former smoker Tobacco Use: Non-smoker Alcohol: None Drugs: None - *Family History Maternal Family History: Family History (Last Updated 01/20/18 @ 15:54 by Lora Mcguire) Brother Diabetes Mother Heart disease Sister Heart disease History Items: No pertinent history Paternal Family History: Family History (Last Updated 01/20/18 @ 15:54 by Lora Mcguire) Brother Diabetes Mother Heart disease Sister Heart disease History Items: No pertinent history Capacity - Capacity Assessment Tool Can the patient make a choice & communicate that choice?: Yes Can the patient understand benefits, risks and alternatives?: Yes Can the patient make a logical, rational choice?: Yes Is the choice the patient makes consistent w/ their values?: Yes Is there an impending, emergent risk to the patient?: No Does the patient have an Advance Directive?: Yes Is there a Surrogate Available?: Yes i.e. HCPOA: Yes i.e. close relative (spouse, child, parent, sibling)?: Yes Review of Systems Constitutional: Denies: Chills, Fever, Weight Change HEENT: Denies: Head Aches, Sinus Congestion, Sinus Drainage Cardiovascular: Denies: Chest Pain, Palpitations Respiratory: Denies: Cough, Shortness of breath at rest, Sputum production Gastrointestinal: Denies: Abdominal Pain, Nausea, Vomiting Genitourinary: Denies: Dysuria Musculoskeletal: Denies: Joint Pain, Joint Tenderness Skin: Denies: Rash, Wounds Neurological: Denies: Numbness, Tingling, Focal weakness Psychiatric: Denies: Anxiety, Depression, Homicidal Ideations, Suicidal Ideations Hematologic/ Lymphatic: Denies: Easy Bruising, Easy Bleeding Patient Problems: Active and Suspected Problems (Last Updated 01/20/18 @ 15:53 by Lora Mcguire) Acute respiratory failure (Acute) Acute kidney injury (Acute) Encephalopathy (Acute) Status post emergency tracheotomy for assistance in breathing (Acute) - Physical Exam General: Alert, Oriented x3, Cooperative HEENT: Atraumatic, PERRLA, EOMI, Normocephalic Neck: Supple, No JVD, Negative Carotid Bruits, - - Tracheostomy healed. Lungs: Clear to auscultation, Normal air movement Cardiovascular: Regular rate, No murmurs Abdomen: Bowel Sounds Present, Soft, Non Tender Extremities: No edema, Capillary Refill Less than 3 Seconds Skin: No rashes, No breakdown Musculoskeletal: No Tenderness to Palpation of Joints or Extremities Neurological: Cranial nerves II-XII grossly intact Psych/Mental Status: Normal Affect, Appropriate Vital Signs Temp Pulse Resp BP Pulse Ox 97.7 F L 110 H 18 103/65 98 02/28/19 14:12 02/28/19 14:12 02/28/19 14:12 02/28/19 14:12 02/28/19 14:12 Oxygen Flow Rate (L/min) 2 Oxygen Delivery Method Room Air Weight: 71.838 kg Body Mass Index (BMI) 23.8 Intake and Output for Last 24 Hours 02/26/19 02/27/19 02/28/19 23:59 23:59 23:59 Intake Total 1920 / 1920 1060 / 1060 1440 / 1440 Output Total 1225 / 1225 1475 / 1475 Balance 695 / 695 1060 / 1060 -35 / -35 Assessment/Plan All Active Problems (Last Updated 01/20/18 @ 15:50 by Lora Mcguire) Acute respiratory failure (Acute) Acute kidney injury (Acute) Encephalopathy (Acute) Status post emergency tracheotomy for assistance in breathing (Acute) Carotid stenosis, bilateral (Acute) 73 year old male with below past medical history hospitalized 09/23/2019 for aortic valve replacement, complicated postoperative course, admitted to [facility], transferred to TCU with debility, here for rehabilitation, strengthening, prior to disposition determination. * Debility - PT/OT. * Dysphagia - ST. * Pain - Tylenol 650MG Q4H PRN pain. * Bowel - Miralax 17GM daily, Colace 100MG BID, Senna 8.6MG BID, Dulcolax 10MG NE daily PRN. * Pneumonia vaccination - Administer Prevnar 13 and/or Pneumovax 23 as needed. * DVT prophylaxis - Lovenox 40MG SC daily. * Coronary Artery Disease - Metoprolol 25MG BID, Plavix 75MG daily, Aspirin 81MG daily. * Allergic Rhinitis - Loratadine 10MG daily, Flonase 1 spray daily. * Hypertension - Enalapril 1.25MG IV Q6H PRN systolic blood pressure > 165, Metoprolol 5MG IV Q6H PRN systolic blood pressure > 160. * GERD - Famotidine 20MG twice daily. * Cough - Robitussin DM 5ML Q4H PRN. * Shortness of breath - Duoneb 3ML Q4H PRN. * Dry eyes - Artificial tears 2GTT QID, Lacri lube 1 application OU PRN. * Nausea - Zofran 4MG IV Q6H PRN. * Hyperparathyroidism - Senispar 30MG BID. * Insomnia - Melatonin 10MG QHS. * Skin irritation - Calmoseptine BID. * Tinea Corporis - Nystatin powder BID.
[2019-02-28] MEDS: MELATONIN 10 MG TABLET PO (21:54)
[2019-02-28] MEDS: Loratadine 10 MG Tablet PO (21:54)
[2019-03-01] MEDS: Enoxaparin 40 MG/0.4 ML Syringe SC (04:55)
[2019-03-01] MEDS: Docusate Sodium 100 MG Capsule PO ×2 (04:55→17:03)
[2019-03-01] MEDS: Nystatin Powder 15gm Bottle 1 APPLIC TOPICAL ×2 (04:55→21:12)
[2019-03-01] MEDS: Senna Tablet 1 TABLET PO ×2 (04:55→17:03)
[2019-03-01] MEDS: Clopidogrel Bisulfate 75 MG Tablet PO (04:55)
[2019-03-01] MEDS: Famotidine 20 MG Tablet PO ×2 (04:55→17:03)
[2019-03-01] MEDS: Menthol/Lanolin/Calamine/Znox 113 GM Tube 1 APPLIC TOPICAL ×2 (04:55→21:12)
[2019-03-01] MEDS: Cinacalcet HCl 30 MG Tablet PO ×2 (04:56→17:03)
[2019-03-01] MEDS: Fluticasone 0.05% 1 SPRAY NASAL.SRY NASAL ×2 (04:57→17:01)
[2019-03-01] MEDS: Aspirin 81 MG TAB.CHEW PO (08:13)
[2019-03-01 15:37] VITALS: BP 96/66; PULSE 107; RESP 18; TEMP 37.1; O2SAT 91
[2019-03-01] MEDS: MELATONIN 10 MG TABLET PO (21:11)
[2019-03-01] MEDS: Loratadine 10 MG Tablet PO (21:12)
[2019-03-02] MEDS: Senna Tablet 1 TABLET PO ×2 (03:43→16:55)
[2019-03-02] MEDS: Clopidogrel Bisulfate 75 MG Tablet PO (03:43)
[2019-03-02] MEDS: Cinacalcet HCl 30 MG Tablet PO ×2 (03:43→16:55)
[2019-03-02] MEDS: Famotidine 20 MG Tablet PO ×2 (03:43→16:55)
[2019-03-02] MEDS: Enoxaparin 40 MG/0.4 ML Syringe SC (03:43)
[2019-03-02] MEDS: Docusate Sodium 100 MG Capsule PO ×2 (03:43→16:55)
[2019-03-02] MEDS: Fluticasone 0.05% 1 SPRAY NASAL.SRY NASAL ×2 (03:43→16:54)
[2019-03-02] MEDS: Nystatin Powder 15gm Bottle 1 APPLIC TOPICAL ×2 (03:46→21:00)
[2019-03-02] MEDS: Menthol/Lanolin/Calamine/Znox 113 GM Tube 1 APPLIC TOPICAL ×2 (03:46→21:00)
[2019-03-02] MEDS: Aspirin 81 MG TAB.CHEW PO (07:33)
[2019-03-02 10:00] VITALS: RESP 18; O2SAT 97
[2019-03-02 16:00] VITALS: BP 108/69; PULSE 104; RESP 20; TEMP 37.2; O2SAT 95
[2019-03-02] MEDS: Loratadine 10 MG Tablet PO (20:57)
[2019-03-02] MEDS: MELATONIN 10 MG TABLET PO (20:57)
[2019-03-03] MEDS: Famotidine 20 MG Tablet PO ×2 (05:06→17:31)
[2019-03-03] MEDS: Cinacalcet HCl 30 MG Tablet PO ×2 (05:06→17:30)
[2019-03-03] MEDS: Polyethylene Glycol 3350 17 GM PACKET PO (05:06)
[2019-03-03] MEDS: Enoxaparin 40 MG/0.4 ML Syringe SC (05:06)
[2019-03-03] MEDS: Docusate Sodium 100 MG Capsule PO ×2 (05:06→17:30)
[2019-03-03] MEDS: Clopidogrel Bisulfate 75 MG Tablet PO (05:07)
[2019-03-03] MEDS: Fluticasone 0.05% 1 SPRAY NASAL.SRY NASAL ×2 (05:07→17:31)
[2019-03-03] MEDS: Senna Tablet 1 TABLET PO ×2 (05:07→17:31)
[2019-03-03] MEDS: Nystatin Powder 15gm Bottle 1 APPLIC TOPICAL ×2 (05:11→20:48)
[2019-03-03] MEDS: Menthol/Lanolin/Calamine/Znox 113 GM Tube 1 APPLIC TOPICAL ×2 (05:11→20:47)
[2019-03-03] MEDS: Aspirin 81 MG TAB.CHEW PO (08:35)
[2019-03-03 15:40] VITALS: BP 109/60; PULSE 92; RESP 18; TEMP 36.4; O2SAT 99
[2019-03-03] MEDS: Loratadine 10 MG Tablet PO (20:44)
[2019-03-03] MEDS: MELATONIN 10 MG TABLET PO (20:44)
[2019-03-03 20:50] VITALS: O2SAT 97
[2019-03-04] MEDS: Cinacalcet HCl 30 MG Tablet PO ×2 (06:20→18:04)
[2019-03-04] MEDS: Senna Tablet 1 TABLET PO ×2 (06:21→18:03)
[2019-03-04] MEDS: Famotidine 20 MG Tablet PO ×2 (06:21→18:04)
[2019-03-04] MEDS: Fluticasone 0.05% 1 SPRAY NASAL.SRY NASAL ×2 (06:21→18:03)
[2019-03-04] MEDS: Menthol/Lanolin/Calamine/Znox 113 GM Tube 1 APPLIC TOPICAL ×2 (06:21→20:51)
[2019-03-04] MEDS: Nystatin Powder 15gm Bottle 1 APPLIC TOPICAL ×2 (06:21→20:51)
[2019-03-04] MEDS: Clopidogrel Bisulfate 75 MG Tablet PO (06:21)
[2019-03-04] MEDS: Polyethylene Glycol 3350 17 GM PACKET PO (06:22)
[2019-03-04] MEDS: Enoxaparin 40 MG/0.4 ML Syringe SC (06:22)
--- NOTE | 2019-03-04 08:10 | MDS.RN ---
Information for the mds was obtained from review of the clinical record, interview of resident, staff, and direct observation of resident's care.
[2019-03-04] MEDS: Aspirin 81 MG TAB.CHEW PO (08:58)
[2019-03-04 09:09] VITALS: PULSE 100
--- NOTE | 2019-03-04 09:15 | NURSING ---
FLUSHED PEG WITH 60CC STERILE WATER. PT TOLERATED WELL. CLEANSED SITE W/NS, SLIGHTLY RED, SCANT AMT YELLOW DRNG NOTED. NEW SPLIT DRSG APPLIED.
[2019-03-04 16:00] VITALS: BP 92/62; PULSE 104; RESP 18; TEMP 36.8; O2SAT 95
--- NOTE | 2019-03-04 17:43 | NURSING ---
This nurse into Pt room after hearing Pt alarm. Pt noted to be holding Pt up, Pt bottom almost touching floor. This nurse asked what happened and she stated she was helping her from [facility] and she sat down before she had wheelchair under him. Pt has No injuries and this nurse assisted in getting him back in his chair. Pad alarm in chair and Pt positioned beside his bed with feet elevated and call light within reach. This nurse educated the Pt and on importance of using the call light and having staff assist Pt. Pt and voiced understanding. Anne Marie FOREMAN aware
[2019-03-04] MEDS: Docusate Sodium 100 MG Capsule PO (18:04)
[2019-03-04] MEDS: MELATONIN 10 MG TABLET PO (20:51)
[2019-03-04] MEDS: Loratadine 10 MG Tablet PO (20:51)
--- NOTE | 2019-03-05 05:38 | NURSING ---
PT FOUND ON FLOOR OF SHOWER SITTING UPRIGHT. DENIES LOC, DENIES HEAD TRAUMA. HR 113, OTHERWISE VS WNL. FALL PROTOCOL INITIATED. WILL CONTINUE TO MONITOR.
[2019-03-05 05:40] VITALS: BP 101/72; PULSE 113; RESP 18; TEMP 36.6; O2SAT 100
[2019-03-05] MEDS: Docusate Sodium 100 MG Capsule PO (05:57)
[2019-03-05] MEDS: Senna Tablet 1 TABLET PO ×2 (05:57→17:07)
[2019-03-05] MEDS: Cinacalcet HCl 30 MG Tablet PO ×2 (05:57→17:07)
[2019-03-05] MEDS: Enoxaparin 40 MG/0.4 ML Syringe SC (05:57)
[2019-03-05] MEDS: Famotidine 20 MG Tablet PO ×2 (05:57→17:07)
[2019-03-05] MEDS: Menthol/Lanolin/Calamine/Znox 113 GM Tube 1 APPLIC TOPICAL ×2 (05:57→20:40)
[2019-03-05] MEDS: Clopidogrel Bisulfate 75 MG Tablet PO (05:57)
[2019-03-05] MEDS: Polyethylene Glycol 3350 17 GM PACKET PO (05:57)
[2019-03-05] MEDS: Fluticasone 0.05% 1 SPRAY NASAL.SRY NASAL ×2 (05:58→17:06)
[2019-03-05] MEDS: Nystatin Powder 15gm Bottle 1 APPLIC TOPICAL ×2 (06:00→20:40)
--- NOTE | 2019-03-05 06:25 | NURSING ---
, MELINDA NOTIFIED OF PT'S FALL.
[2019-03-05 07:42] LABS: Absolute Lymphocyte Count 1.47 X10^3/ul (0.83-4.51); Absolute Neutrophil Count 4.1 X10^3/uL (2.0-7.7); Basophil# 0.11 X10^3/uL; Basophil% 1.5 % (0-1); Eosinophil# 0.58 X10^3/uL; Eosinophils% 8.1 % (0-5); Hematocrit 36.8 % (40-54); Hemoglobin 11.5 g/dl (13.0-16.5); Lymphocyte # 1.47 X10^3/ul (4.0); Lymphocyte % 20.5 % (19-41); Mean Corp Hgb Conc 31.3 g/gl (32-36); Mean Corpuscular Hgb 30.2 pg (27.0-32.0); Mean Corpuscular Volume 96.6 fL (80-94); Mean Platelet Vol. 9.2 fl (6.2-12.0); Monocyte# 0.81 X10^3/uL; Monocyte% 11.3 % (0-10); Neutrophil # 4.14 X10^3/uL (2.7-7.7); Neutrophil % 57.8 % (47-70); Platelet Count 318 K/mm3 (150-450); RBC Distribution Width CV 15.3 % (11.6-14.6); RBC Distribution Width SD 53.8 fl (35.1-43.9); Red Blood Count 3.81 M/mm3 (4.6-6.2); White Blood Count 7.2 K/mm3 (4.4-11.0)
[2019-03-05 07:43] LABS: POSITIVE COUNT NO; POSITIVE DIFFERENTIAL NO; POSITIVE MORPHOLOGY NO
[2019-03-05] MEDS: Aspirin 81 MG TAB.CHEW PO (07:45)
[2019-03-05 07:50] LABS: Anion Gap 6 (5-15); BUN 14 mg/dL (7-18); BUN/Creat Ratio 9.5 RATIO (10-20); Calcium,Total 8.4 mg/dL (8.5-10.1); Chloride 109 mmol/L (98-107); Creatinine, Serum 1.48 mg/dL (0.70-1.30); EST Glomerular Filtration Rate 49 mL/min (>60); Est Glom Filt Rate - Afr Amer 60 mL/min (>60); Estimated Creatinine Clearance 42.36 ml/min; Glucose 106 mg/dL (74-106); Potassium 3.9 mmol/L (3.5-5.1); Sodium Level 141 mmol/L (136-145)
[2019-03-05 14:02] VITALS: BP 96/57; PULSE 107; RESP 16; TEMP 36.8; O2SAT 97
[2019-03-05] MEDS: MELATONIN 10 MG TABLET PO (20:40)
[2019-03-05] MEDS: Loratadine 10 MG Tablet PO (20:40)
[2019-03-06] MEDS: Polyethylene Glycol 3350 17 GM PACKET PO (05:35)
[2019-03-06] MEDS: Menthol/Lanolin/Calamine/Znox 113 GM Tube 1 APPLIC TOPICAL ×2 (05:36→20:59)
[2019-03-06] MEDS: Nystatin Powder 15gm Bottle 1 APPLIC TOPICAL ×2 (05:36→20:59)
[2019-03-06] MEDS: Senna Tablet 1 TABLET PO ×2 (05:37→17:55)
[2019-03-06] MEDS: Clopidogrel Bisulfate 75 MG Tablet PO (05:37)
[2019-03-06] MEDS: Cinacalcet HCl 30 MG Tablet PO ×2 (05:37→17:55)
[2019-03-06] MEDS: Enoxaparin 40 MG/0.4 ML Syringe SC (05:37)
[2019-03-06] MEDS: Famotidine 20 MG Tablet PO ×2 (05:37→17:55)
[2019-03-06] MEDS: Fluticasone 0.05% 1 SPRAY NASAL.SRY NASAL ×2 (05:38→17:53)
[2019-03-06] MEDS: Aspirin 81 MG TAB.CHEW PO (07:22)
[2019-03-06 11:33] VITALS: O2SAT 97
[2019-03-06 16:00] VITALS: BP 100/60; PULSE 102; RESP 20; TEMP 37.2; O2SAT 96
[2019-03-06] MEDS: Loratadine 10 MG Tablet PO (20:57)
[2019-03-06] MEDS: MELATONIN 10 MG TABLET PO (20:57)
[2019-03-07] MEDS: Famotidine 20 MG Tablet PO ×2 (05:13→17:49)
[2019-03-07] MEDS: Clopidogrel Bisulfate 75 MG Tablet PO (05:13)
[2019-03-07] MEDS: Cinacalcet HCl 30 MG Tablet PO ×2 (05:13→17:49)
[2019-03-07] MEDS: Polyethylene Glycol 3350 17 GM PACKET PO (05:13)
[2019-03-07] MEDS: Enoxaparin 40 MG/0.4 ML Syringe SC (05:14)
[2019-03-07] MEDS: Nystatin Powder 15gm Bottle 1 APPLIC TOPICAL ×2 (05:14→20:14)
[2019-03-07] MEDS: Fluticasone 0.05% 1 SPRAY NASAL.SRY NASAL ×2 (05:14→17:49)
[2019-03-07] MEDS: Senna Tablet 1 TABLET PO ×2 (05:14→17:49)
[2019-03-07] MEDS: Menthol/Lanolin/Calamine/Znox 113 GM Tube 1 APPLIC TOPICAL ×2 (05:14→20:14)
[2019-03-07] MEDS: Aspirin 81 MG TAB.CHEW PO (07:42)
[2019-03-07 15:30] VITALS: BP 99/64; PULSE 104; RESP 16; TEMP 37.1; O2SAT 95
[2019-03-07] MEDS: Loratadine 10 MG Tablet PO (20:11)
[2019-03-07] MEDS: MELATONIN 10 MG TABLET PO (20:11)
[2019-03-08] MEDS: Cinacalcet HCl 30 MG Tablet PO ×2 (05:37→16:58)
[2019-03-08] MEDS: Senna Tablet 1 TABLET PO ×2 (05:37→16:58)
[2019-03-08] MEDS: Famotidine 20 MG Tablet PO ×2 (05:37→16:58)
[2019-03-08] MEDS: Polyethylene Glycol 3350 17 GM PACKET PO (05:38)
[2019-03-08] MEDS: Enoxaparin 40 MG/0.4 ML Syringe SC (05:38)
[2019-03-08] MEDS: Clopidogrel Bisulfate 75 MG Tablet PO (05:38)
[2019-03-08] MEDS: Fluticasone 0.05% 1 SPRAY NASAL.SRY NASAL ×2 (05:39→16:58)
[2019-03-08] MEDS: Menthol/Lanolin/Calamine/Znox 113 GM Tube 1 APPLIC TOPICAL ×2 (05:42→21:13)
[2019-03-08] MEDS: Nystatin Powder 15gm Bottle 1 APPLIC TOPICAL ×2 (05:42→21:12)
[2019-03-08] MEDS: Aspirin 81 MG TAB.CHEW PO (07:55)
[2019-03-08 15:37] VITALS: BP 134/65; PULSE 104; RESP 16; TEMP 36.8; O2SAT 92
[2019-03-08] MEDS: Docusate Sodium 100 MG Capsule PO (16:58)
[2019-03-08] MEDS: Loratadine 10 MG Tablet PO (21:07)
[2019-03-08] MEDS: MELATONIN 10 MG TABLET PO (21:07)
[2019-03-08 21:14] VITALS: O2SAT 94
[2019-03-09] MEDS: Polyethylene Glycol 3350 17 GM PACKET PO (05:18)
[2019-03-09] MEDS: Clopidogrel Bisulfate 75 MG Tablet PO (05:18)
[2019-03-09] MEDS: Docusate Sodium 100 MG Capsule PO ×2 (05:18→17:07)
[2019-03-09] MEDS: Famotidine 20 MG Tablet PO ×2 (05:18→17:07)
[2019-03-09] MEDS: Enoxaparin 40 MG/0.4 ML Syringe SC (05:18)
[2019-03-09] MEDS: Cinacalcet HCl 30 MG Tablet PO ×2 (05:18→17:07)
[2019-03-09] MEDS: Senna Tablet 1 TABLET PO ×2 (05:22→17:07)
[2019-03-09] MEDS: Fluticasone 0.05% 1 SPRAY NASAL.SRY NASAL ×2 (05:23→17:07)
[2019-03-09] MEDS: Menthol/Lanolin/Calamine/Znox 113 GM Tube 1 APPLIC TOPICAL ×2 (05:24→21:12)
[2019-03-09] MEDS: Nystatin Powder 15gm Bottle 1 APPLIC TOPICAL ×2 (05:24→21:12)
--- NOTE | 2019-03-09 06:49 | NURSING ---
Pt complaint of increased edema to bilateral lower ext. This nurse assessed. Non-pitting edema noted to bilateral feet. Pt refusing to wear genoveva hose states That just makes it worse. This nurse explained importance of genoveva hose and why they are ordered. Pt wheeling himself around on unit in wheelchair with feet hanging down a majority of the morning. Encouraged pt to elevated. Pt stating I'll do it after breakfast. Pt requesting to talk to .
[2019-03-09] MEDS: Aspirin 81 MG TAB.CHEW PO (07:41)
--- NOTE | 2019-03-09 08:53 | NURSING ---
Addendum entered by Anne Marie Landers 03/09/19 08:54: PT UPDATED ON ALL Original Note: PT WITH INCREASED EDEMA TO BLE'S, PT DOES HAVE LEGS DOWN MOST OF DAY IN WC NOW THAT HE IS MORE MOBILE, REFUSING MALATHI HOSE. NEW ORDER FOR LASIX X7 DAYS, KCL X7 DAYS AND BMP IN 3 DAYS.
[2019-03-09] MEDS: Furosemide 40 MG Tablet PO (09:42)
[2019-03-09 15:36] VITALS: BP 106/62; PULSE 102; RESP 16; TEMP 37.2; O2SAT 96
[2019-03-09] MEDS: MELATONIN 10 MG TABLET PO (21:09)
[2019-03-09] MEDS: Loratadine 10 MG Tablet PO (21:09)
[2019-03-10] MEDS: Polyethylene Glycol 3350 17 GM PACKET PO (05:19)
[2019-03-10] MEDS: Fluticasone 0.05% 1 SPRAY NASAL.SRY NASAL ×2 (05:22→17:29)
[2019-03-10] MEDS: Docusate Sodium 100 MG Capsule PO ×2 (05:23→17:29)
[2019-03-10] MEDS: Menthol/Lanolin/Calamine/Znox 113 GM Tube 1 APPLIC TOPICAL ×2 (05:23→20:52)
[2019-03-10] MEDS: Nystatin Powder 15gm Bottle 1 APPLIC TOPICAL ×2 (05:23→20:52)
[2019-03-10] MEDS: Cinacalcet HCl 30 MG Tablet PO ×2 (05:23→17:29)
[2019-03-10] MEDS: Enoxaparin 40 MG/0.4 ML Syringe SC (05:23)
[2019-03-10] MEDS: Furosemide 40 MG Tablet PO (05:23)
[2019-03-10] MEDS: Senna Tablet 1 TABLET PO ×2 (05:23→17:29)
[2019-03-10] MEDS: Famotidine 20 MG Tablet PO ×2 (05:23→17:29)
[2019-03-10] MEDS: Clopidogrel Bisulfate 75 MG Tablet PO (05:24)
[2019-03-10] MEDS: Aspirin 81 MG TAB.CHEW PO (07:33)
[2019-03-10 16:00] VITALS: BP 105/61; PULSE 78; RESP 18; TEMP 36.9; O2SAT 96
[2019-03-10] MEDS: Loratadine 10 MG Tablet PO (20:51)
[2019-03-10] MEDS: MELATONIN 10 MG TABLET PO (20:52)
[2019-03-11] MEDS: Furosemide 40 MG Tablet PO (04:49)
[2019-03-11] MEDS: Famotidine 20 MG Tablet PO ×2 (04:49→17:53)
[2019-03-11] MEDS: Enoxaparin 40 MG/0.4 ML Syringe SC (04:49)
[2019-03-11] MEDS: Polyethylene Glycol 3350 17 GM PACKET PO (04:50)
[2019-03-11] MEDS: Fluticasone 0.05% 1 SPRAY NASAL.SRY NASAL ×2 (04:50→17:53)
[2019-03-11] MEDS: Cinacalcet HCl 30 MG Tablet PO ×2 (04:51→17:53)
[2019-03-11] MEDS: Clopidogrel Bisulfate 75 MG Tablet PO (04:51)
[2019-03-11] MEDS: Senna Tablet 1 TABLET PO ×2 (04:51→17:54)
[2019-03-11] MEDS: Menthol/Lanolin/Calamine/Znox 113 GM Tube 1 APPLIC TOPICAL ×2 (04:51→21:32)
[2019-03-11] MEDS: Nystatin Powder 15gm Bottle 1 APPLIC TOPICAL ×2 (04:51→21:32)
[2019-03-11] MEDS: Docusate Sodium 100 MG Capsule PO ×2 (04:53→17:53)
[2019-03-11] MEDS: Aspirin 81 MG TAB.CHEW PO (07:38)
[2019-03-11 16:00] VITALS: BP 97/60; PULSE 101; RESP 16; TEMP 36.8; O2SAT 97
[2019-03-11] MEDS: MELATONIN 10 MG TABLET PO (21:28)
[2019-03-11] MEDS: Loratadine 10 MG Tablet PO (21:28)
[2019-03-12] MEDS: Polyethylene Glycol 3350 17 GM PACKET PO (05:15)
[2019-03-12] MEDS: Fluticasone 0.05% 1 SPRAY NASAL.SRY NASAL ×2 (05:15→16:54)
[2019-03-12] MEDS: Enoxaparin 40 MG/0.4 ML Syringe SC (05:16)
[2019-03-12] MEDS: Cinacalcet HCl 30 MG Tablet PO ×2 (05:17→16:54)
[2019-03-12] MEDS: Senna Tablet 1 TABLET PO ×2 (05:17→16:54)
[2019-03-12] MEDS: Famotidine 20 MG Tablet PO ×2 (05:17→16:54)
[2019-03-12] MEDS: Clopidogrel Bisulfate 75 MG Tablet PO (05:17)
[2019-03-12] MEDS: Furosemide 40 MG Tablet PO (05:17)
[2019-03-12] MEDS: Menthol/Lanolin/Calamine/Znox 113 GM Tube 1 APPLIC TOPICAL ×2 (05:18→21:09)
[2019-03-12] MEDS: Nystatin Powder 15gm Bottle 1 APPLIC TOPICAL ×2 (05:18→21:09)
[2019-03-12 06:01] LABS: Absolute Lymphocyte Count 1.64 X10^3/ul (0.83-4.51); Absolute Neutrophil Count 4.2 X10^3/uL (2.0-7.7); Basophil# 0.05 X10^3/uL; Basophil% 0.7 % (0-1); Eosinophil# 0.62 X10^3/uL; Eosinophils% 8.3 % (0-5); Hematocrit 35.1 % (40-54); Hemoglobin 10.9 g/dl (13.0-16.5); Lymphocyte # 1.64 X10^3/ul (4.0); Mean Corp Hgb Conc 31.1 g/gl (32-36); Mean Corpuscular Hgb 29.6 pg (27.0-32.0); Mean Corpuscular Volume 95.4 fL (80-94); Mean Platelet Vol. 9.8 fl (6.2-12.0); Monocyte# 0.81 X10^3/uL; Monocyte% 10.9 % (0-10); Neutrophil # 4.19 X10^3/uL (2.7-7.7); Neutrophil % 56.2 % (47-70); Platelet Count 365 K/mm3 (150-450); RBC Distribution Width CV 15.2 % (11.6-14.6); RBC Distribution Width SD 50.7 fl (35.1-43.9); Red Blood Count 3.68 M/mm3 (4.6-6.2); White Blood Count 7.5 K/mm3 (4.4-11.0)
[2019-03-12 06:03] LABS: POSITIVE COUNT NO; POSITIVE DIFFERENTIAL NO; POSITIVE MORPHOLOGY NO
[2019-03-12 06:32] LABS: Anion Gap 10 (5-15); BUN 19 mg/dL (7-18); BUN/Creat Ratio 12.8 RATIO (10-20); Calcium,Total 8.3 mg/dL (8.5-10.1); Chloride 108 mmol/L (98-107); Creatinine, Serum 1.49 mg/dL (0.70-1.30); EST Glomerular Filtration Rate 49 mL/min (>60); Est Glom Filt Rate - Afr Amer 59 mL/min (>60); Estimated Creatinine Clearance 42.08 ml/min; Glucose 95 mg/dL (74-106); Sodium Level 143 mmol/L (136-145)
[2019-03-12] MEDS: Aspirin 81 MG TAB.CHEW PO (07:53)
[2019-03-12 15:53] VITALS: BP 97/63; PULSE 98; RESP 18; TEMP 36.8; O2SAT 99
[2019-03-12] MEDS: Loratadine 10 MG Tablet PO (21:08)
[2019-03-12] MEDS: MELATONIN 10 MG TABLET PO (21:09)
[2019-03-12 22:04] VITALS: O2SAT 97
[2019-03-13] MEDS: Fluticasone 0.05% 1 SPRAY NASAL.SRY NASAL ×2 (05:45→17:05)
[2019-03-13] MEDS: Enoxaparin 40 MG/0.4 ML Syringe SC (05:45)
[2019-03-13] MEDS: Clopidogrel Bisulfate 75 MG Tablet PO (05:46)
[2019-03-13] MEDS: Senna Tablet 1 TABLET PO ×2 (05:46→17:04)
[2019-03-13] MEDS: Docusate Sodium 100 MG Capsule PO ×2 (05:46→17:04)
[2019-03-13] MEDS: Furosemide 40 MG Tablet PO (05:46)
[2019-03-13] MEDS: Famotidine 20 MG Tablet PO ×2 (05:46→17:04)
[2019-03-13] MEDS: Cinacalcet HCl 30 MG Tablet PO ×2 (05:46→17:04)
[2019-03-13] MEDS: Polyethylene Glycol 3350 17 GM PACKET PO (05:46)
[2019-03-13] MEDS: Nystatin Powder 15gm Bottle 1 APPLIC TOPICAL ×2 (05:52→21:20)
[2019-03-13] MEDS: Menthol/Lanolin/Calamine/Znox 113 GM Tube 1 APPLIC TOPICAL ×2 (05:52→21:20)
[2019-03-13] MEDS: Aspirin 81 MG TAB.CHEW PO (08:10)
[2019-03-13 15:39] VITALS: BP 100/56; PULSE 98; RESP 20; TEMP 37.1; O2SAT 97
[2019-03-13] MEDS: MELATONIN 10 MG TABLET PO (21:19)
[2019-03-13] MEDS: Loratadine 10 MG Tablet PO (21:20)
[2019-03-14] MEDS: Fluticasone 0.05% 1 SPRAY NASAL.SRY NASAL ×2 (05:16→16:57)
[2019-03-14] MEDS: Enoxaparin 40 MG/0.4 ML Syringe SC (05:18)
[2019-03-14] MEDS: Furosemide 40 MG Tablet PO (05:18)
[2019-03-14] MEDS: Senna Tablet 1 TABLET PO ×2 (05:18→16:57)
[2019-03-14] MEDS: Polyethylene Glycol 3350 17 GM PACKET PO (05:18)
[2019-03-14] MEDS: Clopidogrel Bisulfate 75 MG Tablet PO (05:18)
[2019-03-14] MEDS: Famotidine 20 MG Tablet PO ×2 (05:18→16:57)
[2019-03-14] MEDS: Cinacalcet HCl 30 MG Tablet PO ×2 (05:18→16:57)
[2019-03-14] MEDS: Menthol/Lanolin/Calamine/Znox 113 GM Tube 1 APPLIC TOPICAL ×2 (05:19→21:41)
[2019-03-14] MEDS: Nystatin Powder 15gm Bottle 1 APPLIC TOPICAL ×2 (05:20→21:41)
[2019-03-14] MEDS: Aspirin 81 MG TAB.CHEW PO (07:39)
[2019-03-14 15:44] VITALS: BP 99/63; PULSE 102; RESP 18; TEMP 37; O2SAT 97
[2019-03-14] MEDS: Docusate Sodium 100 MG Capsule PO (16:57)
--- NOTE | 2019-03-14 18:05 | NURSING ---
pt self transferring multiple times today, chair alarm on, pt educated and encouraged to notify staff
[2019-03-14] MEDS: Loratadine 10 MG Tablet PO (21:35)
[2019-03-14] MEDS: MELATONIN 10 MG TABLET PO (21:35)
[2019-03-15] MEDS: Fluticasone 0.05% 1 SPRAY NASAL.SRY NASAL ×2 (05:13→18:07)
[2019-03-15] MEDS: Menthol/Lanolin/Calamine/Znox 113 GM Tube 1 APPLIC TOPICAL ×2 (05:17→21:56)
[2019-03-15] MEDS: Nystatin Powder 15gm Bottle 1 APPLIC TOPICAL ×2 (05:17→21:55)
[2019-03-15] MEDS: Cinacalcet HCl 30 MG Tablet PO ×2 (05:17→18:09)
[2019-03-15] MEDS: Senna Tablet 1 TABLET PO (05:17)
[2019-03-15] MEDS: Enoxaparin 40 MG/0.4 ML Syringe SC (05:17)
[2019-03-15] MEDS: Clopidogrel Bisulfate 75 MG Tablet PO (05:17)
[2019-03-15] MEDS: Furosemide 40 MG Tablet PO (05:17)
[2019-03-15] MEDS: Famotidine 20 MG Tablet PO ×2 (05:17→18:08)
[2019-03-15] MEDS: Polyethylene Glycol 3350 17 GM PACKET PO (05:17)
[2019-03-15] MEDS: Aspirin 81 MG TAB.CHEW PO (09:02)
[2019-03-15 15:21] VITALS: BP 115/67; PULSE 108; RESP 18; TEMP 36.4; O2SAT 92
[2019-03-15] MEDS: MELATONIN 10 MG TABLET PO (21:55)
[2019-03-15] MEDS: Loratadine 10 MG Tablet PO (21:55)
[2019-03-16] MEDS: Enoxaparin 40 MG/0.4 ML Syringe SC (05:24)
[2019-03-16] MEDS: Fluticasone 0.05% 1 SPRAY NASAL.SRY NASAL (05:24)
[2019-03-16] MEDS: Clopidogrel Bisulfate 75 MG Tablet PO (05:24)
[2019-03-16] MEDS: Docusate Sodium 100 MG Capsule PO (05:24)
[2019-03-16] MEDS: Famotidine 20 MG Tablet PO ×2 (05:25→17:35)
[2019-03-16] MEDS: Furosemide 40 MG Tablet PO (05:25)
[2019-03-16] MEDS: Polyethylene Glycol 3350 17 GM PACKET PO (05:25)
[2019-03-16] MEDS: Senna Tablet 1 TABLET PO (05:25)
[2019-03-16] MEDS: Cinacalcet HCl 30 MG Tablet PO ×2 (05:25→17:35)
[2019-03-16] MEDS: Nystatin Powder 15gm Bottle 1 APPLIC TOPICAL ×2 (05:29→20:56)
[2019-03-16] MEDS: Menthol/Lanolin/Calamine/Znox 113 GM Tube 1 APPLIC TOPICAL ×2 (05:29→20:57)
[2019-03-16] MEDS: Aspirin 81 MG TAB.CHEW PO (07:51)
[2019-03-16 14:43] VITALS: PULSE 104; O2SAT 97
--- NOTE | 2019-03-16 15:33 | NURSING ---
observed flushing of PEG tube today for DC home on Thursday. Pt & verbalized understanding.
[2019-03-16 16:00] VITALS: BP 95/52; PULSE 104; RESP 20; TEMP 36.8; O2SAT 95
--- NOTE | 2019-03-16 16:31 | CASEMGMT ---
Social Work Pt requesting discharge at this time. SW met with pt and and discussed discharge plan. Pt would like to d/c on Thursday03/18/19 and agreeable. Team notified and agreeable to d/c home and recommending outpt PT/OT/ST. Pt and agreeable to this and would like to use [facility]. Pt will also need a wheeled walker at home and would like [facility] to deliver WW to pt room prior to d/c. Pt is able to transport pt and provide needed assistance at home. Plan: D/C home with on 03/18/19. Outpatient PT/OT/ST at [facility], wheeled walker. SYDNEY Smiley
--- NOTE | 2019-03-16 20:07 | DCINST_ITS ---
- Discharge Diagnoses Current Active Problems: Current Active and Chronic Problems (Last Updated 01/20/18 @ 15:53 by Lora Mcguire) Acute respiratory failure (Acute) Acute kidney injury (Acute) Encephalopathy (Acute) Coronary artery disease (Chronic) Hypertension (Chronic) Hyperlipidemia (Chronic) Peripheral arterial occlusive disease (Chronic) Chronic kidney disease (Chronic) Deep venous thrombosis (Chronic) Pulmonary embolism (Chronic) Bipolar disorder (Chronic) Aortic stenosis (Chronic) Allergic rhinitis (Chronic) Anemia (Chronic) BPH (benign prostatic hyperplasia) (Chronic) GERD (gastroesophageal reflux disease) (Chronic) Status post emergency tracheotomy for assistance in breathing (Acute) You will use the following diet at home:: No restrictions, Regular Your food should be the consistency of: Regular Your liquids should be the consistency of: Regular/Thin Discharge Activity: Return to Normal Activity, May Shower, Use Walker May resume sexual activity in: No Restrictions Weight Bearing Status: Weight bearing as tolerated Call your doctor if you observe: Fever of 101 or Higher, Inability to urinate, Inability to have a bowel movement, Shortness of breath, Chest pain, Uncontrolled pain Allergies/Adverse Reactions: Allergies penicillin V Allergy (Mild, Verified 01/20/18 15:55) hives codeine Adverse Reaction (Mild, Verified 01/20/18 15:55) upset stomach divalproex sodium [From Depakote] Adverse Reaction (Verified 01/29/19 01:28) Other Per family, pt became very comatose on medication haloperidol [From Haldol] Adverse Reaction (Verified 01/29/19 01:29) Other Per family, pt became very comatose on medication pecans Allergy (Mild, Uncoded 12/22/17 12:55) stomach cramps Medications to take at Discharge Aspirin 81 mg GT DAILY 01/28/19 Cetirizine HCl 10 mg GT QHS 01/28/19 Mineral Oil/Petrolatum,White [Refresh Lacri-Lube Ointment] 1 applicatio EACH EYE DAILY PRN PRN 01/28/19 Polyvinyl Alcohol [Liquitears] 2 drop OPHTHALMIC 4X/DAY 01/28/19 Acetaminophen [Tylenol Tablet] 650 mg PO Q4H PRN PRN tablet 03/16/19 Clopidogrel Bisulfate [Plavix] 75 mg GT DAILY #30 tab 03/16/19 Famotidine 20 mg GT BID #60 tab 03/16/19 Melatonin 10 mg PO QHS #30 tab 03/16/19 Menthol/Lanolin/Calamine/Znox [Calmoseptine Ointment] 1 applic TOPICAL 0600,2200 tube 03/16/19 Nystatin Powder [Mycostatin Powder] 1 applic TOPICAL 0600,2200 bottle 03/16/19 Sensipar 30 mg GT BID #60 03/16/19 The following prescriptions were given: Clopidogrel Bisulfate [Plavix] 75 mg GT DAILY #30 tab Melatonin 10 mg PO QHS #30 tab Famotidine 20 mg GT BID #60 tab Sensipar 30 mg GT BID #60 Primary Care Physician: Layne Joy MD [Primary Care Provider] - Please follow up with your Primary Care Physician in: 1 week. Test Results: Test results from this visit will be discussed in further detail at your follow- up appointment, if applicable. Proposed Discharge Date: 03/18/19
--- NOTE | 2019-03-16 20:07 | PCM.DC.SUM ---
Discharge Date and Diagnosis - Problem List Patient Problems: Active and Suspected Problems (Last Updated 01/20/18 @ 15:53 by Lora Mcguire) Acute respiratory failure (Acute) Acute kidney injury (Acute) Encephalopathy (Acute) Status post emergency tracheotomy for assistance in breathing (Acute) Date of Admission: 01/28/19 Date of Discharge: 03/18/19 - Primary Discharge Diagnosis Active and Suspected Problems (Last Updated 01/20/18 @ 15:53 by Lora Mcguire) Acute respiratory failure (Acute) Acute kidney injury (Acute) Encephalopathy (Acute) Status post emergency tracheotomy for assistance in breathing (Acute) - Secondary Discharge Diagnosis Chronic Problems (Last Updated 01/20/18 @ 15:50 by Lora Mcguire) Coronary artery disease (Chronic) Hypertension (Chronic) Hyperlipidemia (Chronic) Peripheral arterial occlusive disease (Chronic) Chronic kidney disease (Chronic) Deep venous thrombosis (Chronic) Pulmonary embolism (Chronic) Bipolar disorder (Chronic) Aortic stenosis (Chronic) Allergic rhinitis (Chronic) Anemia (Chronic) BPH (benign prostatic hyperplasia) (Chronic) GERD (gastroesophageal reflux disease) (Chronic) Bipolar disorder (Chronic) Dyslipidemia (Chronic) Presence of IVC filter (Chronic) Osteoarthritis (Chronic) History of small bowel obstruction (Chronic) History of DVT (deep vein thrombosis) (Chronic) History of pulmonary embolism (Chronic) Family history of kidney stone (Chronic) Hospital Course and Treatment Imaging Results: 02/18/19 09:44 Diet: Regular Diet Food consistency:: Regular Liquid Consistency:: Regular/Thin Is pt able to select menu?: No Diet Comments: meds whole with purees or liquids Clinical Impression(s) from Imaging Studies Chest X-Ray 02/03/19 11:15 IMPRESSION: Mild increased markings at the right lung base suggestive of a linear atelectasis. Electronically Signed: Nigel Jackson, at 11:51 EDT , Service support , Videofluoroscopic Swallow 02/17/19 13:30 IMPRESSION: Sided aspiration with ingestion of thin liquids. This improves with the chin tuck maneuver. The swallow study findings were discussed with the patient by the speech pathologist at the conclusion of the examination. Please see speech pathology report for more information and recommendations. Electronically Signed: Nigel Jackson, at 14:32 EDT , Service support , Operations: None Procedures: None Summary of Care Provided: The patient is a 73 year old Male with below past medical history hospitalized 09/23/2019 for aortic valve replacement, complicated postoperative course, admitted to [facility], transferred to TCU with debility, here for rehabilitation, strengthening, prior to disposition determination. 02/04/2019 Dr. Roberts decannulated tracheostomy, resident tolerated well. Discharging home with PEG tube, should be able to remove PEG soon. Discharge home with , outpatient PT/OT/ST, wheeled walker. Patient Problems: Active and Suspected Problems (Last Updated 01/20/18 @ 15:53 by Lora Mcguire) Acute respiratory failure (Acute) Acute kidney injury (Acute) Encephalopathy (Acute) Status post emergency tracheotomy for assistance in breathing (Acute) - Physical Exam Vital Signs Temp Pulse Resp BP Pulse Ox 98.2 F 104 H 20 H 95/52 L 95 03/16/19 16:00 03/16/19 16:00 03/16/19 16:00 03/16/19 16:00 03/16/19 16:00 Oxygen Flow Rate (L/min) 2 Oxygen Delivery Method Room Air Weight: 76.657 kg Body Mass Index (BMI) 23.8 Intake and Output for Last 24 Hours 03/14/19 03/15/19 03/16/19 23:59 23:59 23:59 Intake Total 1230 / 1230 630 / 630 720 / 720 Output Total 700 / 700 700 / 700 Balance 530 / 530 -70 / -70 720 / 720 Discharge Diet: No Restrictions Discharge Activity: Return to Normal Activity, May Shower, Use Walker May resume sexual activity in: No Restrictions Weight Bearing Status: Weight bearing as tolerated Call your doctor if you observe: Fever of 101 or Higher, Inability to urinate, Inability to have a bowel movement, Shortness of breath, Chest pain, Uncontrolled pain Home Medications: Medications to take at Discharge Aspirin 81 mg GT DAILY 01/28/19 Cetirizine HCl 10 mg GT QHS 01/28/19 Mineral Oil/Petrolatum,White [Refresh Lacri-Lube Ointment] 1 applicatio EACH EYE DAILY PRN PRN 01/28/19 Polyvinyl Alcohol [Liquitears] 2 drop OPHTHALMIC 4X/DAY 01/28/19 Acetaminophen [Tylenol Tablet] 650 mg PO Q4H PRN PRN tablet 03/16/19 Clopidogrel Bisulfate [Plavix] 75 mg GT DAILY #30 tab 03/16/19 Famotidine 20 mg GT BID #60 tab 03/16/19 Melatonin 10 mg PO QHS #30 tab 03/16/19 Menthol/Lanolin/Calamine/Znox [Calmoseptine Ointment] 1 applic TOPICAL 0600,2200 tube 03/16/19 Nystatin Powder [Mycostatin Powder] 1 applic TOPICAL 0600,2200 bottle 03/16/19 Sensipar 30 mg GT BID #60 03/16/19 Following Prescrptions Were Given to Patient: Clopidogrel Bisulfate [Plavix] 75 mg GT DAILY #30 tab Melatonin 10 mg PO QHS #30 tab Famotidine 20 mg GT BID #60 tab Sensipar 30 mg GT BID #60 Primary Care Physician: Layne Joy MD [Primary Care Provider] - Please follow up with your Primary Care Physician in: 1 week. Disposition: Home Minutes spent on discharge:: 30 Patient Condition:: Stable Medical Necessity - Tobacco Use Smoking Status: Former smoker Tobacco Use: Non-smoker Meaningful Use Info Meaningful Use Diagnoses (Choose all that apply): None applicable
--- NOTE | 2019-03-16 20:10 | DS.PCM_ITS ---
Discharge Date and Diagnosis - Problem List Patient Problems: Active and Suspected Problems (Last Updated 01/20/18 @ 15:53 by Lora Mcguire) Acute respiratory failure (Acute) Acute kidney injury (Acute) Encephalopathy (Acute) Status post emergency tracheotomy for assistance in breathing (Acute) Date of Admission: 01/28/19 Date of Discharge: 03/18/19 - Primary Discharge Diagnosis Active and Suspected Problems (Last Updated 01/20/18 @ 15:53 by Lora Mcguire) Acute respiratory failure (Acute) Acute kidney injury (Acute) Encephalopathy (Acute) Status post emergency tracheotomy for assistance in breathing (Acute) - Secondary Discharge Diagnosis Chronic Problems (Last Updated 01/20/18 @ 15:50 by Lora Mcguire) Coronary artery disease (Chronic) Hypertension (Chronic) Hyperlipidemia (Chronic) Peripheral arterial occlusive disease (Chronic) Chronic kidney disease (Chronic) Deep venous thrombosis (Chronic) Pulmonary embolism (Chronic) Bipolar disorder (Chronic) Aortic stenosis (Chronic) Allergic rhinitis (Chronic) Anemia (Chronic) BPH (benign prostatic hyperplasia) (Chronic) GERD (gastroesophageal reflux disease) (Chronic) Bipolar disorder (Chronic) Dyslipidemia (Chronic) Presence of IVC filter (Chronic) Osteoarthritis (Chronic) History of small bowel obstruction (Chronic) History of DVT (deep vein thrombosis) (Chronic) History of pulmonary embolism (Chronic) Family history of kidney stone (Chronic) Hospital Course and Treatment Imaging Results: 02/18/19 09:44 Diet: Regular Diet Food consistency:: Regular Liquid Consistency:: Regular/Thin Is pt able to select menu?: No Diet Comments: meds whole with purees or liquids Clinical Impression(s) from Imaging Studies Chest X-Ray 02/03/19 11:15 IMPRESSION: Mild increased markings at the right lung base suggestive of a linear atelectasis. Electronically Signed: Nigel Jackson, at 11:51 EDT , Service support , Videofluoroscopic Swallow 02/17/19 13:30 IMPRESSION: Sided aspiration with ingestion of thin liquids. This improves with the chin tuck maneuver. The swallow study findings were discussed with the patient by the speech pathologist at the conclusion of the examination. Please see speech pathology report for more information and recommendations. Electronically Signed: Nigel Jackson, at 14:32 EDT , Service support , Operations: None Procedures: None Summary of Care Provided: The patient is a 73 year old Male with below past medical history hospitalized 09/23/2019 for aortic valve replacement, complicated postoperative course, admitted to [facility], transferred to TCU with debility, here for rehabilita tion, strengthening, prior to disposition determination. 02/04/2019 Dr. Roberts decannulated tracheostomy, resident tolerated well. Discharging home with PEG tube, should be able to remove PEG soon. Discharge home with , outpatient PT/OT/ST, wheeled walker. Patient Problems: Active and Suspected Problems (Last Updated 01/20/18 @ 15:53 by Lora Mcguire) Acute respiratory failure (Acute) Acute kidney injury (Acute) Encephalopathy (Acute) Status post emergency tracheotomy for assistance in breathing (Acute) - Physical Exam Vital Signs Temp Pulse Resp BP Pulse Ox 98.2 F 104 H 20 H 95/52 L 95 03/16/19 16:00 03/16/19 16:00 03/16/19 16:00 03/16/19 16:00 03/16/19 16:00 Oxygen Flow Rate (L/min) 2 Oxygen Delivery Method Room Air Weight: 76.657 kg Body Mass Index (BMI) 23.8 Intake and Output for Last 24 Hours 03/14/19 03/15/19 03/16/19 23:59 23:59 23:59 Intake Total 1230 / 1230 630 / 630 720 / 720 Output Total 700 / 700 700 / 700 Balance 530 / 530 -70 / -70 720 / 720 Discharge Diet: No Restrictions Discharge Activity: Return to Normal Activity, May Shower, Use Walker May resume sexual activity in: No Restrictions Weight Bearing Status: Weight bearing as tolerated Call your doctor if you observe: Fever of 101 or Higher, Inability to urinate, Inability to have a bowel movement, Shortness of breath, Chest pain, Uncontrolled pain Home Medications: Medications to take at Discharge Aspirin 81 mg GT DAILY 01/28/19 Cetirizine HCl 10 mg GT QHS 01/28/19 Mineral Oil/Petrolatum,White [Refresh Lacri-Lube Ointment] 1 applicatio EACH EYE DAILY PRN PRN 01/28/19 Polyvinyl Alcohol [Liquitears] 2 drop OPHTHALMIC 4X/DAY 01/28/19 Acetaminophen [Tylenol Tablet] 650 mg PO Q4H PRN PRN tablet 03/16/19 Clopidogrel Bisulfate [Plavix] 75 mg GT DAILY #30 tab 03/16/19 Famotidine 20 mg GT BID #60 tab 03/16/19 Melatonin 10 mg PO QHS #30 tab 03/16/19 Menthol/Lanolin/Calamine/Znox [Calmoseptine Ointment] 1 applic TOPICAL 0600,2200 tube 03/16/19 Nystatin Powder [Mycostatin Powder] 1 applic TOPICAL 0600,2200 bottle 03/16/19 Sensipar 30 mg GT BID #60 03/16/19 Following Prescrptions Were Given to Patient: Clopidogrel Bisulfate [Plavix] 75 mg GT DAILY #30 tab Melatonin 10 mg PO QHS #30 tab Famotidine 20 mg GT BID #60 tab Sensipar 30 mg GT BID #60 Primary Care Physician: Layne Joy MD [Primary Care Provider] - Please follow up with your Primary Care Physician in: 1 week. Disposition: Home Minutes spent on discharge:: 30 Patient Condition:: Stable Medical Necessity - Tobacco Use Smoking Status: Former smoker Tobacco Use: Non-smoker Meaningful Use Info Meaningful Use Diagnoses (Choose all that apply): None applicable
[2019-03-16] MEDS: MELATONIN 10 MG TABLET PO (20:55)
[2019-03-16] MEDS: Loratadine 10 MG Tablet PO (20:55)
[2019-03-17] MEDS: Cinacalcet HCl 30 MG Tablet PO ×2 (05:53→17:21)
[2019-03-17] MEDS: Docusate Sodium 100 MG Capsule PO (05:54)
[2019-03-17] MEDS: Polyethylene Glycol 3350 17 GM PACKET PO (05:54)
[2019-03-17] MEDS: Clopidogrel Bisulfate 75 MG Tablet PO (05:54)
[2019-03-17] MEDS: Enoxaparin 40 MG/0.4 ML Syringe SC (05:54)
[2019-03-17] MEDS: Senna Tablet 1 TABLET PO (05:54)
[2019-03-17] MEDS: Famotidine 20 MG Tablet PO ×2 (05:54→17:21)
[2019-03-17] MEDS: Menthol/Lanolin/Calamine/Znox 113 GM Tube 1 APPLIC TOPICAL ×2 (05:57→20:55)
[2019-03-17] MEDS: Nystatin Powder 15gm Bottle 1 APPLIC TOPICAL ×2 (05:58→20:55)
[2019-03-17] MEDS: Aspirin 81 MG TAB.CHEW PO (07:45)
--- NOTE | 2019-03-17 10:37 | CASEMGMT ---
Social Work Referral to [facility] and order faxed. [facility] to contact pt to set up appointments. Referral to [facility] and order faxed for WW. WW to be delivered to pt room on Thursday prior to d/c. Martin. SYDNEY Suero
--- NOTE | 2019-03-17 14:43 | MDS.RN ---
Pain interview for jennifer 03/18/19 completed.
[2019-03-17 16:00] VITALS: BP 107/77; PULSE 99; RESP 18; TEMP 36.7; O2SAT 94
[2019-03-17] MEDS: Loratadine 10 MG Tablet PO (20:53)
[2019-03-17] MEDS: MELATONIN 10 MG TABLET PO (20:53)
[2019-03-18] MEDS: Polyethylene Glycol 3350 17 GM PACKET PO (05:24)
[2019-03-18] MEDS: Clopidogrel Bisulfate 75 MG Tablet PO (05:26)
[2019-03-18] MEDS: Docusate Sodium 100 MG Capsule PO (05:26)
[2019-03-18] MEDS: Cinacalcet HCl 30 MG Tablet PO (05:26)
[2019-03-18] MEDS: Senna Tablet 1 TABLET PO (05:26)
[2019-03-18] MEDS: Famotidine 20 MG Tablet PO (05:26)
[2019-03-18] MEDS: Enoxaparin 40 MG/0.4 ML Syringe SC (05:27)
[2019-03-18] MEDS: Menthol/Lanolin/Calamine/Znox 113 GM Tube 1 APPLIC TOPICAL (05:28)
[2019-03-18] MEDS: Nystatin Powder 15gm Bottle 1 APPLIC TOPICAL (05:28)
[2019-03-18] MEDS: Aspirin 81 MG TAB.CHEW PO (07:52)
--- NOTE | 2019-03-18 11:14 | PCM.PN.RX ---
<Abdirashid Barton Sridhar - Last Filed: 03/18/19 11:14> Progress Note - Pharmacy Subjective: TCU Followup Objective: Allergies penicillin V Allergy (Mild, Verified 01/20/18 15:55) hives codeine Adverse Reaction (Mild, Verified 01/20/18 15:55) upset stomach divalproex sodium [From Depakote] Adverse Reaction (Verified 01/29/19 01:28) Other Per family, pt became very comatose on medication haloperidol [From Haldol] Adverse Reaction (Verified 01/29/19 01:29) Other Per family, pt became very comatose on medication pecans Allergy (Mild, Uncoded 12/22/17 12:55) stomach cramps Current Medications Generic Name Dose Route Start Last Admin Trade Name Freq PRN Reason Stop Dose Admin Acetaminophen 650 mg 02/19/19 02:36 02/28/19 17:30 Tylenol PO 650 mg Q4H PRN PRN Administration PAIN Albuterol/Ipratropium 3 ml 01/28/19 17:47 02/04/19 00:25 Duoneb INHALATION 3 ml Q4H PRN PRN Administration SHORTNESS OF BREATH Artificial Tears 2 drop 02/10/19 16:38 Tears Naturale, Artificial Tears EACH EYE 4X/DAY PRN eye irritation Aspirin 81 mg 02/19/19 08:00 03/18/19 07:52 Aspirin, Baby PO 81 mg DAILY@0800 ENDER Administration Bisacodyl 10 mg 01/28/19 17:47 01/30/19 13:21 Dulcolax RECTAL 10 mg DAILY PRN PRN Administration Constipation Calamine/Phenol 1 applic 01/29/19 06:00 03/18/19 05:28 Calmoseptine Ointment TOPICAL 1 applicatio 0600,2200 ENDER Administration Protocol Cinacalcet 30 mg 02/27/19 18:00 03/18/19 05:26 Sensipar PO 30 mg BID ENDER Administration Clopidogrel Bisulfate 75 mg 02/19/19 06:00 03/18/19 05:26 Plavix PO 75 mg DAILY ENDER Administration Docusate Sodium 100 mg 03/16/19 06:00 03/18/19 05:26 Colace PO 100 mg DAILY ENDER Administration Enoxaparin Sodium 40 mg 01/29/19 06:00 03/18/19 05:27 Lovenox SC 40 mg DAILY@0600 ENDER Administration Famotidine 20 mg 02/19/19 06:00 03/18/19 05:26 Pepcid PO 20 mg BID ENDER Administration Guaifenesin 5 ml 02/19/19 02:35 Robitussin Dm PO Q4H PRN PRN COUGH Sodium Chloride 250 mls @ 15 mls/hr 02/03/19 12:55 02/03/19 13:41 IV 15 mls/hr .[id number] PRN Administration SALINE FLUSH Loratadine 10 mg 02/19/19 22:00 03/17/19 20:53 Claritin PO 10 mg QHS ENDER Administration Melatonin 10 mg 02/11/19 22:00 03/17/19 20:53 Melatonin PO 10 mg QHS ENDER Administration Multi-Ingredient Cream 1 applic 01/28/19 17:47 Lacrilube EACH EYE DAILY PRN PRN dryness Nystatin 1 applic 01/29/19 06:00 03/18/19 05:28 Mycostatin Powder TOPICAL 1 applicatio 0600,2200 ENDER Administration Protocol Polyethylene Glycol 17 gm 02/19/19 06:00 03/18/19 05:24 Miralax PO 17 gm DAILY ENDER Administration Senna 1 tablet 03/16/19 06:00 03/18/19 05:26 Senokot PO 1 tablet DAILY ENDER Administration Sodium Chloride 5 - 15 ml 02/03/19 12:55 02/03/19 22:11 IV 10 ml UD PRN Administration SALINE FLUSH Problem List (Last Updated 01/20/18 @ 15:53 by Lora Mcguire) Acute respiratory failure (Acute) Acute kidney injury (Acute) Encephalopathy (Acute) Coronary artery disease (Chronic) Hypertension (Chronic) Hyperlipidemia (Chronic) Peripheral arterial occlusive disease (Chronic) Chronic kidney disease (Chronic) Deep venous thrombosis (Chronic) Pulmonary embolism (Chronic) Bipolar disorder (Chronic) Aortic stenosis (Chronic) Allergic rhinitis (Chronic) Anemia (Chronic) BPH (benign prostatic hyperplasia) (Chronic) GERD (gastroesophageal reflux disease) (Chronic) Status post emergency tracheotomy for assistance in breathing (Acute) Vital Signs Temp Pulse Resp BP Pulse Ox 98.0 F 99 18 107/77 94 03/17/19 16:00 03/17/19 16:00 03/17/19 16:00 03/17/19 16:00 03/17/19 16:00 Oxygen Flow Rate (L/min) 2 Oxygen Delivery Method Room Air Weight: 76.289 kg Body Mass Index (BMI) 23.8 Sodium 143 mmol/L (136-145) 03/12/19 05:10 Potassium 4.0 mmol/L (3.5-5.1) 03/12/19 05:10 Chloride 108 mmol/L (98-107) H 03/12/19 05:10 Carbon Dioxide 25.0 mmol/L (21.0-32.0) 03/12/19 05:10 Anion Gap 10 (5-15) 03/12/19 05:10 BUN 19 mg/dL (7-18) H 03/12/19 05:10 Creatinine 1.49 mg/dL (0.70-1.30) H 03/12/19 05:10 Est GFR (MDRD) Af Amer 59 mL/min (>60) L 03/12/19 05:10 Est GFR (MDRD) Non-Af 49 mL/min (>60) L 03/12/19 05:10 BUN/Creatinine Ratio 12.8 RATIO (10-20) 03/12/19 05:10 Glucose 95 mg/dL (74-106) 03/12/19 05:10 Assessment/Plan: 1) Pain APAP for pain. Continue to monitor prn medication use, daily pain scores. 2) CAD ASA, clopidogrel. Continue to monitor BP/HR, for chest pain. 3) Pulm Duoneb aerosols prn, guaifenesin DM prn, loratadine. Continue to monitor prn medication use, for shortness of breath. 4) GI Famotidine. Continue to monitor s/s GI distress. 5) DVT PPx Enoxaparin. Continue to monitor s/s bleeding/clot. 6) Hyperparathyroidism Cinacalcet. Continue to monitor clinically. Psychotropic Medications: None Unnecessary Medications: None Bowel Regimen: 7) Senna, PEG, docusate, prn bisacodyl. Continue to monitor prn medication use, for constipation/diarrhea. Date of Note:: 03/18/19 - Provider Comments Provider responsibility: Provider responsible to enter orders to implement recommendations <Carlos Lira Chi - Last Filed: 03/18/19 13:56> Progress Note - Pharmacy Subjective: [] Objective: Allergies penicillin V Allergy (Mild, Verified 01/20/18 15:55) hives codeine Adverse Reaction (Mild, Verified 01/20/18 15:55) upset stomach divalproex sodium [From Depakote] Adverse Reaction (Verified 01/29/19 01:28) Other Per family, pt became very comatose on medication haloperidol [From Haldol] Adverse Reaction (Verified 01/29/19 01:29) Other Per family, pt became very comatose on medication pecans Allergy (Mild, Uncoded 12/22/17 12:55) stomach cramps Vital Signs Temp Pulse Resp BP Pulse Ox 97.8 F 67 16 112/74 96 03/18/19 11:32 03/18/19 11:32 03/18/19 11:32 03/18/19 11:32 03/18/19 11:32 Oxygen Flow Rate (L/min) 2 Oxygen Delivery Method Room Air Weight: 76.289 kg Body Mass Index (BMI) 23.8 Sodium 143 mmol/L (136-145) 03/12/19 05:10 Potassium 4.0 mmol/L (3.5-5.1) 03/12/19 05:10 Chloride 108 mmol/L (98-107) H 03/12/19 05:10 Carbon Dioxide 25.0 mmol/L (21.0-32.0) 03/12/19 05:10 Anion Gap 10 (5-15) 03/12/19 05:10 BUN 19 mg/dL (7-18) H 03/12/19 05:10 Creatinine 1.49 mg/dL (0.70-1.30) H 03/12/19 05:10 Est GFR (MDRD) Af Amer 59 mL/min (>60) L 03/12/19 05:10 Est GFR (MDRD) Non-Af 49 mL/min (>60) L 03/12/19 05:10 BUN/Creatinine Ratio 12.8 RATIO (10-20) 03/12/19 05:10 Glucose 95 mg/dL (74-106) 03/12/19 05:10 Assessment/Plan: Psychotropic Medications: Unnecessary Medications: Bowel Regimen: - Provider Comments Provider responsibility: Provider responsible to enter orders to implement recommendations Provider Comments to Recommendations by Pharmacy: Agree
[2019-03-18 11:32] VITALS: BP 112/74; PULSE 67; RESP 16; TEMP 36.6; O2SAT 96
== END 2019-03-18 11:15 | disposition home or self-care (01) | DRG 948 ==
PROVIDERS: Internal Medicine; Admitting Provider Family Medicine Geriatric Medicine; Family Provider Family Medicine; PCP Family Medicine; Referring Provider Family Medicine Geriatric Medicine; Visit Provider Family Medicine Geriatric Medicine
DX: R53.81 Other malaise (principal); N17.9 Acute kidney failure, unspecified; K21.9 Gastro-esophageal reflux disease without esophagitis; I25.10 Atherosclerotic heart disease of native coronary artery without angina pectoris; E78.5 Hyperlipidemia, unspecified; N18.9 Chronic kidney disease, unspecified; I12.9 Hypertensive chronic kidney disease with stage 1 through stage 4 chronic kidney disease, or unspecified chronic kidney disease; N40.0 Benign prostatic hyperplasia without lower urinary tract symptoms; M19.90 Unspecified osteoarthritis, unspecified site; E21.3 Hyperparathyroidism, unspecified; Z95.2 Presence of prosthetic heart valve; Z86.711 Personal history of pulmonary embolism; Z86.718 Personal history of other venous thrombosis and embolism; Z87.891 Personal history of nicotine dependence; Z93.1 Gastrostomy status; Z93.0 Tracheostomy status; F31.9 Bipolar disorder, unspecified; I77.9 Disorder of arteries and arterioles, unspecified; J30.9 Allergic rhinitis, unspecified; B35.4 Tinea corporis
CPT/HCPCS: 31720; 36415; 71046; 74230; 80048; 80053; 81001; 82274; 82962; 85025; 87040; 87077; 87086; 87088; 87184; 87186; 92507; 92526; 92611; 94640; 97110; 97112; 97116; 97163; 97167; 97530; 97535; 97802; 97803; J7030; J7050; A4216; J0696

== ENCOUNTER 2019-02-05 08:48 | Emergency (ER) | payer MEDICARE, OTHER, SELFPAY ==
[2019-02-05 08:49] VITALS: BP 96/65; PULSE 90; RESP 18; TEMP 36.6; O2SAT 96; BMI 25.5
--- NOTE | 2019-02-05 08:52 | CT_ITS ---
STUDY: CT BRAIN WITHOUT CONTRAST REASON FOR EXAM: Male, 73 years old. Fall RADIATION DOSAGE (If Supplied By Facility): CTDIvol = ( 44.99 ) mGy, DLP = ( 812.98 ) mGycm TECHNIQUE: Transaxial CT imaging of the brain was performed without administration of intravenous contrast material. Individualized dose optimization techniques were used for this CT. COMPARISON: CT head 12/15/2017. FINDINGS: Normal soft tissue structures. Normal calvarium. Small left frontal scalp subcutaneous swelling. There is moderate cerebral atrophy with widening of the extra-axial spaces and ventricular dilatation. There are areas of decreased attenuation within the white matter tracts of the supratentorial brain, consistent with microvascular disease changes. Normal basal ganglia and thalami. Normal brainstem. Normal cerebellum. There is no intracranial hemorrhage. There are no findings of an acute ischemic infarction. There is a small air-fluid level in the left maxillary sinus which may represent acute sinusitis.. CT/Brain/Head without Contrast IMPRESSION: No intracranial hemorrhage. The calvarium is intact. Small left frontal scalp subcutaneous swelling. Chronic findings are described above. Mild left maxillary acute sinusitis. Electronically Signed: Emeli Sheffield, at 9:52 EDT Tel , Service support ,
--- NOTE | 2019-02-05 08:58 | ED.VISSUMM ---
- ER Visit Summary Date of Service: 02/05/19 Chief Complaint: Fall in TCU History of Present Illness: The patient is a 73 M who presents after a fall. The patient is currently in the transitional care unit. He had a valve repair and had respiratory failure with a tracheostomy after the surgery. He is recuperating in the TCU. He states he got up today and grabbed a hold of an IV pole when his hand slipped and he fell. He did hit his head. No LOC. He denies any neck pain. He is currently on aspirin, Plavix and Lovenox. He has a slight headache but denies any other injuries. Physical Examination: Vital signs are reviewed. HEENT exam reveals a left forehead hematoma. There is a 0.75 cm laceration horizontally oriented above the left eyebrow. His right pupil was surgically repaired and is permanently dilated. He does have a 0.5 cm U-shaped laceration to the nasal bridge. His neck is nontender. Heart is regular rate and rhythm. Lungs are clear. Abdomen is soft. He does have a PEG tube in place. Skin exam reveals the lacerations mentioned above. He is alert and oriented x3 with a GCS of 15. Test Results: CT scan of the head reveals no acute findings. There is evidence of a forehead hematoma. Emergency Department Course and Treatment: The patient's wounds were prepped with alcohol. They are not gaping. These were repaired with Dermabond. He will have local wound care to these while in the ICU. His CAT scan shows nothing traumatic. Patient will be sent back to the TCU. Treatment Plan: [] Disposition: Discharge Impression: Fall, forehead hematoma, facial laceration 0.75 cm Laceration repair by ED physician This note was generated with [employer] dictation software. It may contain incorrect words, spelling, and punctuation that were not noted in review of the chart prior to signing ED Disposition - Plan for ED Patient: Referrals: Layne Joy MD [Primary Care Provider] -
--- NOTE | 2019-02-05 10:02 | ED.DEP ---
ED Disposition - Plan for ED Patient: Disposition: Home or Assisted Living Instructions: ED Laceration Facial Skin Glue Referrals: Layne Joy MD [Primary Care Provider] -
[2019-02-05 10:06] VITALS: BP 90/50; PULSE 74; RESP 18; O2SAT 96
--- NOTE | 2019-02-05 10:47 | ED.RN ---
report to tcu staff dina
== END 2019-02-05 10:43 | disposition home or self-care (01) ==
PROVIDERS: Emergency Provider Emergency Medicine; Family Provider Family Medicine; PCP Family Medicine
DX: S01.81XA Laceration without foreign body of other part of head, initial encounter (principal); S01.21XA Laceration without foreign body of nose, initial encounter; S00.83XA Contusion of other part of head, initial encounter; R40.2410 Glasgow coma scale score 13-15, unspecified time; W19.XXXA Unspecified fall, initial encounter; Y93.9 Activity, unspecified; Y92.239 Unspecified place in hospital as the place of occurrence of the external cause; Z93.1 Gastrostomy status; I25.10 Atherosclerotic heart disease of native coronary artery without angina pectoris; K21.9 Gastro-esophageal reflux disease without esophagitis; I10 Essential (primary) hypertension; E78.00 Pure hypercholesterolemia, unspecified; N40.0 Benign prostatic hyperplasia without lower urinary tract symptoms; Z95.1 Presence of aortocoronary bypass graft; Z95.2 Presence of prosthetic heart valve; Z87.09 Personal history of other diseases of the respiratory system; Z79.02 Long term (current) use of antithrombotics/antiplatelets; Z79.82 Long term (current) use of aspirin; Z79.899 Other long term (current) drug therapy
CPT/HCPCS: 12011; 70450; 99281

== ENCOUNTER → 2019-04-01 | Outpatient (CLI) | payer MEDICARE, OTHER, SELFPAY ==
[2019-03-30 10:22] VITALS: BMI 26.6
[2019-04-01 16:17] LABS: Absolute Lymphocyte Count 1.88 X10^3/ul (0.83-4.51); Basophil# 0.09 X10^3/uL; Basophil% 1.4 % (0-1); Eosinophil# 0.77 X10^3/uL; Eosinophils% 11.7 % (0-5); Hematocrit 32.8 % (40-54); Hemoglobin 10.4 g/dl (13.0-16.5); Lymphocyte # 1.88 X10^3/ul (4.0); Lymphocyte % 28.5 % (19-41); Mean Corp Hgb Conc 31.7 g/gl (32-36); Mean Corpuscular Hgb 29.8 pg (27.0-32.0); Mean Platelet Vol. 9.2 fl (6.2-12.0); Monocyte# 0.79 X10^3/uL; Neutrophil # 3.03 X10^3/uL (2.7-7.7); Neutrophil % 45.9 % (47-70); POSITIVE COUNT NO; POSITIVE DIFFERENTIAL NO; POSITIVE MORPHOLOGY NO; Platelet Count 340 K/mm3 (150-450); RBC Distribution Width SD 50.5 fl (35.1-43.9); Red Blood Count 3.49 M/mm3 (4.6-6.2); White Blood Count 6.6 K/mm3 (4.4-11.0)
[2019-04-01 17:26] LABS: ALB/GLOB Ratio 0.8 RATIO (0.9-2.4); AST(SGOT) 17 U/L (15-37); Alanine Aminotransfer ALT/SGPT 15 U/L (16-61); Albumin, Serum 3.4 g/dL (3.2-5.0); Alkaline Phosphatase 68 U/L (45-117); Anion Gap 4 (5-15); BUN 16 mg/dL (7-18); BUN/Creat Ratio 10.3 RATIO (10-20); Calcium,Total 7.7 mg/dL (8.5-10.1); Chloride 108 mmol/L (98-107); Creatinine, Serum 1.55 mg/dL (0.70-1.30); EST Glomerular Filtration Rate 47 mL/min (>60); Est Glom Filt Rate - Afr Amer 57 mL/min (>60); Globulin 4.3 g/dL (2.2-4.2); Glucose 82 mg/dL (74-106); Prealbumin 24.2 mg/dL (20.0-40.0); Protein, Total 7.7 g/dL (6.4-8.2); Sodium Level 137 mmol/L (136-145)
== END | disposition home or self-care (01) ==
LOC: LAB 14:37
PROVIDERS: Family Provider Family Medicine; PCP Family Medicine; Referring Provider Family Medicine; Visit Provider Family Medicine
DX: R60.0 Localized edema (principal); N18.3 Chronic kidney disease, stage 3 (moderate); K92.1 Melena
CPT/HCPCS: 36415; 80053; 84134; 85025

== ENCOUNTER 2019-04-26 09:30 | Outpatient (RCR) | payer MEDICARE, OTHER, SELFPAY ==
--- NOTE | 2019-03-23 11:04 | HP.OTEVAL_ITS ---
Patient's Visit Information GASTON FLETCHER is a 73 year old M, referred to Occupational Therapy by Carlos Lira MD, with a diagnosis of Debility. Date of Evaluation: 03/23/19 Occupational Therapist: Torrie Anderson, JOHN/Winsome, CHT - Subjective Subjective: This 73 year old male was seen for initial OT eval with dx of debility. Pt states he went in for open heart sx on 2017. pt has been in hospital or snf until recent d/c from [facility] monday March 18, 2019. Pt states he is performing most daily tasks but has difficulty with UB weakness and endurance to perform all his IADLS and gardening tasks. Pt states he was given some exercises from the hospital and doing exercises once of twice a day. - ADLs Comments: pt lives in one story home with 2 entry with two hand rails. pt states he is doing fine getting in and out of his home. Pt has tub shower combo with shower chair and pt states he is ind. with bathing and dressing. Pt states he will help with washing dishes and putting them away. pt states his puts his compression socks on and puts his shoes on for him. - ROM Shoulder: right rotator cuff issue for 2 years, about 80*shoudler flex left 120* Elbow: WNL Forearm: WNL - Strength Shoulder: right NT due to RC injury left 4/5 Elbow: right 4-/5 left 4/5 Forearm: right 4-/4 left 4/5 Workday Director: right 25# left 30# Lateral Pinch: right 6# left 10# Tripod Pinch: right 8# left 8# Strength Comments: pt demo with bilateral UB weakness - Goals Goal:: PT will demo a increase in MMT by 1mm grade to increase pts ind. with ADLs and home mtg by d/c. pt will demo a increase in bilateral girp strength by 20# to increase pts ind. with ADLs and IADLS by d/c Goal:: pt will demo a increase in bilateral shoulder ORM by 20* to increase ind. with ADLs and IADLS by d/c - Rehabilitation General Assessment: Pt demo a decrease in bilateral UE strength and endurance limiting pt with daily occupations. Pt would benefit from skilled OT services 2- 3x week for 4 weeks to return pt to [facility]. pt is concerned with his walking and this will be evaluated 03/24/19 by PT. Rehabilitation Potential: Good - Anticipated Interventions Anticipated Interventions: A/AAROM/PROM, Strengthening, Home Program - Visit Plan Frequency: 2-3x /Week Duration: 4 Weeks TEXT: Thank you for the opportunity to evaluate your patient. For Medicare and Medicare HMO plans, please review the plan of care and approve it. It will need to be FAXED BACK to us at [phone] for Medicare purposes. Please let me know if there are questions or concerns regarding this plan of care. Physician Signature: Date:
--- NOTE | 2019-03-23 11:11 | HP.OTEVAL ---
Patient's Visit Information GASTON FLETCHER is a 73 year old M, referred to Occupational Therapy by Carlos Lira MD, with a diagnosis of Debility. Date of Evaluation: 03/23/19 Occupational Therapist: Torrie Anderson, JOHN/Winsome, CHT - Subjective Subjective: This 73 year old male was seen for initial OT eval with dx of debility. Pt states he went in for open heart sx on 2017. pt has been in hospital or snf until recent d/c from [facility] monday March 18, 2019. Pt states he is performing most daily tasks but has difficulty with UB weakness and endurance to perform all his IADLS and gardening tasks. Pt states he was given some exercises from the hospital and doing exercises once of twice a day. - ADLs Comments: pt lives in one story home with 2 entry with two hand rails. pt states he is doing fine getting in and out of his home. Pt has tub shower combo with shower chair and pt states he is ind. with bathing and dressing. Pt states he will help with washing dishes and putting them away. pt states his puts his compression socks on and puts his shoes on for him. - ROM Shoulder: right rotator cuff issue for 2 years, about 80*shoudler flex left 120* Elbow: WNL Forearm: WNL - Strength Shoulder: right NT due to RC injury left 4/5 Elbow: right 4-/5 left 4/5 Forearm: right 4-/4 left 4/5 [employer] Range Feeder: right 25# left 30# Lateral Pinch: right 6# left 10# Tripod Pinch: right 8# left 8# Strength Comments: pt demo with bilateral UB weakness - Quick DASH-Disab of Arm,Shoulder& Hand Quick DASH Score: 52.2725 - Goals Goal:: PT will demo a increase in MMT by 1mm grade to increase pts ind. with ADLs and home mtg by d/c. pt will demo a increase in bilateral girp strength by 20# to increase pts ind. with ADLs and IADLS by d/c Goal:: pt will demo a increase in bilateral shoulder ORM by 20* to increase ind. with ADLs and IADLS by d/c - Rehabilitation General Assessment: Pt demo a decrease in bilateral UE strength and endurance limiting pt with daily occupations. Pt would benefit from skilled OT services 2-3x week for 4 weeks to return pt to [facility]. pt is concerned with his walking and this will be evaluated 03/24/19 by PT. Rehabilitation Potential: Good - Anticipated Interventions Anticipated Interventions: A/AAROM/PROM, Strengthening, Home Program - Visit Plan Frequency: 2-3x /Week Duration: 4 Weeks TEXT: Thank you for the opportunity to evaluate your patient. For Medicare and Medicare HMO plans, please review the plan of care and approve it. It will need to be FAXED BACK to us at [phone] for Medicare purposes. Please let me know if there are questions or concerns regarding this plan of care. Physician Signature: Date:
--- NOTE | 2019-03-24 10:55 | HP.PTEVAL ---
Patient's Visit Information GASTON FLETCHER is a 73 year old M referred to Physical Therapy by Carlos Lira MD with a diagnosis of DEBILITITY. Date of Evaluation: 03/24/19 Physical Therapist: Maynor Davis, PT, Cert MDT, OCS - Visit Plan Frequency: 2x /Week Duration: 4 Weeks Plan: *PRECAUTIONS CARDIAC HAD CAGBG*(HAD EXTENSIVE HOSPITALIZATION). PT INTERVENTIONS ENDURANCE PROGRAM,GAIT TRAINING,SRENGTHENING BLE,FUNCTIONAL STRENGTHENING,,NUSTEP - Subjective Findings: This 73 y/o male presenst to physical therapy with debility. Patient intially had CABG aorta valve Sep 22 2018 at [facility] , patient multiple complication intubated ,developed pneumonia unable to walk. Patient had extensive hospitalization for 211 days. Patient was transferred to [place] for Rehab ,then went [facility] at [facility] . Patient was d/c to home March 18 with fww. Pateunt then was recommended OT/PT/SPEECH. Patient conts to have weakness impairs ability to walk extended distance and impairs ADL's. Home Situation: 1 level ketan with 2 steps . Tub/shower with grab rails and shower chair. Patient also has decrease endurance for ADL'S. Patient condition affects QOL and function . SOCIAL: . VOCATION : retired - Objective POSTURE: mild foreward posture. GAIT: mild foward posture reciprocal pattern slow cristopher with fww. BALANCE: fair + with fww. SKIN: port abdominal region. NEURO: intact. MMT: quads/hams/hip flexion 4-/5,abd 3+/5,ankle 4/5. FLEXABILITY: hams mod tight. STAIRS: one step at atime with rail - Balance Scores CATSIB Score (Max score 120 seconds): 25 - Goals Goal 1:: Independant with HEP Goal Time Frame: 4-6 Weeks Goal 2:: Patient to ambulate with least restrictive device community distance with improved gait pattern. Goal Time Frame: 4-6 Weeks Goal 3:: Patient to improve dynamic balance to good-. Goal Time Frame: 4-6 Weeks Goal 4:: Patient to increase strength BLE to 4/5 to improve function gait. Goal Time Frame: 4-6 Weeks Goal 5:: Patient to improve LFES by 10 points or greatrer to nimprove QOL. Goal Time Frame: 4-6 Weeks Goal 6:: Patient to increase function endurance to good. Goal Time Frame: 4-6 Weeks - Rehabilitation Potential Physical Therapy Diagnosis: Patient has multipl comorbities from extensive hospitilization following CABG -valve replacemnt with patient being very deconditioned with decrease endurance,strength,balnce and gait thus impairs ADL'S Rehabilitation Potential: Good - Anticipated Interventions Patient/Client Instruction: Educate patient on: Condition, Plan of Care For the Purpose of:: To improve muscle performance and motor function, To improve ability to perform ADL's, To increase tolerance to activity/condition/position, To improve performance and independence with ADL's, To improve ability of physical actions for home/community/work/leisure, To improve gait and locomotor functions, To improve endurance, To improve balance, To improve ability to perform tasks related to life management Thank you for the opportunity to evaluate your patient. For Medicare and Medicare HMO plans, please review the plan of care and approve it. It will need to be FAXED BACK to us at [phone] for Medicare purposes. For Medicare only, by signing this I certify the plan of care. Please let me know if there are questions or concerns regarding this plan of care. Physician Signature: Date:
[2019-04-26 17:38] LABS: Absolute Lymphocyte Count 1.97 X10^3/ul (0.83-4.51); Absolute Neutrophil Count 6.2 X10^3/uL (2.0-7.7); Basophil# 0.03 X10^3/uL; Basophil% 0.3 % (0-1); Eosinophil# 0.27 X10^3/uL; Eosinophils% 2.9 % (0-5); Hematocrit 35.7 % (40-54); Hemoglobin 11.2 g/dl (13.0-16.5); Lymphocyte # 1.97 X10^3/ul (4.0); Mean Corp Hgb Conc 31.4 g/gl (32-36); Mean Corpuscular Hgb 29.6 pg (27.0-32.0); Mean Corpuscular Volume 94.2 fL (80-94); Mean Platelet Vol. 9.6 fl (6.2-12.0); Monocyte# 0.93 X10^3/uL; Monocyte% 9.9 % (0-10); Neutrophil # 6.17 X10^3/uL (2.7-7.7); Neutrophil % 65.7 % (47-70); Platelet Count 231 K/mm3 (150-450); RBC Distribution Width CV 15.5 % (11.6-14.6); Red Blood Count 3.79 M/mm3 (4.6-6.2); White Blood Count 9.4 K/mm3 (4.4-11.0)
[2019-04-26 17:40] LABS: POSITIVE COUNT NO; POSITIVE DIFFERENTIAL NO; POSITIVE MORPHOLOGY NO
[2019-04-26 18:13] LABS: Vitamin D,25 Hydroxy 16.9 ng/mL (29.95-100.01)
[2019-04-26 18:19] LABS: ALB/GLOB Ratio 0.9 RATIO (0.9-2.4); AST(SGOT) 11 U/L (15-37); Alanine Aminotransfer ALT/SGPT 15 U/L (16-61); Albumin, Serum 3.7 g/dL (3.2-5.0); Alkaline Phosphatase 85 U/L (45-117); Anion Gap 10 (5-15); BUN 17 mg/dL (7-18); BUN/Creat Ratio 12.5 RATIO (10-20); Calcium,Total 8.9 mg/dL (8.5-10.1); Chloride 109 mmol/L (98-107); Creatinine, Serum 1.36 mg/dL (0.70-1.30); EST Glomerular Filtration Rate 54 mL/min (>60); Est Glom Filt Rate - Afr Amer 66 mL/min (>60); Globulin 3.9 g/dL (2.2-4.2); Glucose 80 mg/dL (74-106); Potassium 4.1 mmol/L (3.5-5.1); Protein, Total 7.6 g/dL (6.4-8.2); Sodium Level 142 mmol/L (136-145); Thyroid Stim Hormone (TSH) 0.62 uIU/mL (0.358-3.74)
[2019-04-26 18:21] LABS: PTHIN 67.2 pg/mL (18.4-80.1)
--- NOTE | 2019-06-27 15:25 | HP.OT.NRP ---
HP - Discharge Summary - Patient Information GASTON FLETCHER was seen in my office for initial evaluation on 03/23/19. The following Plan of Care was established for this patient: Plan: D/C - Anticipated Interventions Anticipated Interventions: A/AAROM/PROM, Strengthening, Home Program This patient was last seen in our office 04/26/19. Pertinent comments regarding their Occupational therapy will appear below: Pt was seen for 8 OT visits to regain strength due to debility. Pt progressed well in therapy and was returning to perform his ADLs and IADLs at [facility]. Level. pt demo understanding of HEP to cont with strengthening. Pt has not scheduled further apts and is D/C at this time due to time lapes in therapy services. At this point I will be discontinuing this patient from occupational therapy. I would be happy to see this patient again in the future if found appropriate by the physician. Thank you! Torrie Anderson, OTR/L, CHT
== END 2019-04-26 19:00 | disposition home or self-care (01) ==
LOC: PT 09:30
PROVIDERS: Family Provider Family Medicine; PCP Family Medicine; Referring Provider Family Medicine Geriatric Medicine; Visit Provider Family Medicine Geriatric Medicine
DX: R53.81 Other malaise (principal); R47.01 Aphasia; E21.3 Hyperparathyroidism, unspecified; E55.9 Vitamin D deficiency, unspecified; I25.10 Atherosclerotic heart disease of native coronary artery without angina pectoris
CPT/HCPCS: 36415; 80053; 82306; 83970; 84443; 85025; 97110; 97163; 97166

== ENCOUNTER → 2019-04-27 | Outpatient (CLI) | payer MEDICARE, OTHER, SELFPAY ==
[2019-03-30 10:22] VITALS: BMI 26.6
[2019-04-27 09:03] LABS: BUN 19 mg/dL (7-18); Creatinine, Serum 1.38 mg/dL (0.70-1.30); EST Glomerular Filtration Rate 53 mL/min (>60); Est Glom Filt Rate - Afr Amer 65 mL/min (>60)
== END | disposition home or self-care (01) ==
LOC: LAB 05-02 12:26
PROVIDERS: Family Provider Family Medicine Geriatric Medicine; PCP Family Medicine Geriatric Medicine
DX: Z01.812 Encounter for preprocedural laboratory examination (principal)
CPT/HCPCS: 36415; 82565; 84520

== ENCOUNTER → 2019-05-02 09:58 | Outpatient (CLI) | payer MEDICARE, OTHER, SELFPAY ==
[2019-03-30 10:22] VITALS: BMI 26.6
--- NOTE | 2019-05-02 10:01 | US_ITS ---
PROCEDURES: ULTRASOUND AORTA REASON FOR EXAM: Male, 73 years old. Aorta screening for aneurysm TECHNIQUE: Ultrasound evaluation of the aorta was performed with real-time and static ramos-scale imaging. COMPARISON: None. FINDINGS: There is atherosclerotic plaque formation of the abdominal aorta. Aorta measures: Proximal 2.0 cm. Middle 1.7 cm. Distal 1.4 cm. Aorta measure transversely: Proximal 1.8 cm. Middle 1.8 cm. Distal 1.4 cm. Right iliac artery measures: 0.8 cm. Right iliac artery measure transversely: 1.0 cm. Left iliac artery measures: 0.6 cm. Left iliac artery measure transversely: 0.9 cm. There is no demonstrated aneurysm.. US/Aorta IMPRESSION: No aneurysm. Age-appropriate plaques. Electronically Signed: Ulisses Bae MD at 17:28 EDT , Service support ,
== END ==
PROVIDERS: Family Provider Family Medicine Geriatric Medicine; PCP Family Medicine Geriatric Medicine; Referring Provider Family Medicine Geriatric Medicine; Visit Provider Family Medicine Geriatric Medicine
DX: I71.4 Abdominal aortic aneurysm, without rupture (principal)
CPT/HCPCS: 76775

== ENCOUNTER 2019-05-23 06:24 | Outpatient (RCR) | payer MEDICARE, OTHER, SELFPAY ==
[2019-05-11 09:41] VITALS: BMI 27.2
[2019-05-23 07:57] LABS: Albumin, Serum 3.7 g/dL (3.2-5.0); BUN 18 mg/dL (7-18); BUN/Creat Ratio 11.2 RATIO (10-20); Calcium,Total 9.5 mg/dL (8.5-10.1); Chloride 112 mmol/L (98-107); EST Glomerular Filtration Rate 45 mL/min (>60); Est Glom Filt Rate - Afr Amer 55 mL/min (>60); Glucose 104 mg/dL (74-106); Phosphorus 3.5 mg/dL (2.5-4.9); Potassium 4.3 mmol/L (3.5-5.1); Sodium Level 142 mmol/L (136-145)
[2019-05-23 08:48] LABS: PTHIN 63.5 pg/mL (18.4-80.1)
== END 2019-05-23 07:24 | disposition home or self-care (01) ==
LOC: LAB 06:24
PROVIDERS: Family Provider Family Medicine Geriatric Medicine; PCP Family Medicine Geriatric Medicine; Referring Provider Internal Medicine Nephrology; Visit Provider Internal Medicine Nephrology
DX: E83.52 Hypercalcemia (principal); N18.3 Chronic kidney disease, stage 3 (moderate)
CPT/HCPCS: 36415; 80069; 83970

== ENCOUNTER → 2019-05-27 | Outpatient (CLI) | payer MEDICARE, OTHER, SELFPAY ==
[2019-05-11 09:41] VITALS: BMI 27.2
--- NOTE | 2019-05-27 10:51 | CDU_ITS ---
Reason For Study: Carotid Stenosis Rt. Velocities/BP Lt. Velocities/BP Prox CCA 60/19 cm/sec. Prox CCA 83/27 cm/sec. Mid CCA 80/22 cm/sec. Mid CCA 75/24 cm/sec. Dist CCA 65/19 cm/sec. Dist CCA 71/23 cm/sec. Prox ICA 82/26 cm/sec. Prox ICA 68/23 cm/sec. Mid ICA 68/27 cm/sec. Mid ICA 74/26 cm/sec. Dist ICA 93/34 cm/sec. Dist ICA 89/28 cm/sec. Rt. ICA/CCA = 1.16. Lt. ICA/CCA = 1.2. Prox ECA 94/16 cm/sec. Prox ECA 81/14 cm/sec. Rt. Vert. 43/12 cm/sec. Lt. Vert. 27/6 cm/sec. Right Extracranial There is no significant atherosclerotic plaque noted in the right common carotid artery. There is heterogeneous, irregular atherosclerotic plaque noted in the right internal carotid artery. There is intimal thickening but no significant atherosclerotic plaque noted in the right external carotid artery. Antegrade flow is noted in the right vertebral artery. Left Extracranial There is no significant atherosclerotic plaque noted in the left common carotid artery. There is heterogeneous, irregular atherosclerotic plaque noted in the left internal carotid artery. There is intimal thickening but no significant atherosclerotic plaque noted in the left external carotid artery. Antegrade flow is noted in the left vertebral artery. Procedure Carotid Duplex [id number]. Exam performed in department. Interpretation Summary Right common carotid artery and internal carotid stent. <50% stenosis right internal carotid <50% stenosis right external carotid Calcific plague at the proximal left internal carotid with <50% stenosis. <50% stenosis left external carotid Patent and antegrade vertebrals bilaterally with <50% stenosis Ordering Physician: Lito Iyer Referring Physician: Carlos Lira Chi Performed By: Praveena Greene, DAGOBERTO, RVT
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
== END | disposition home or self-care (01) ==
PROVIDERS: Family Provider Family Medicine Geriatric Medicine; PCP Family Medicine Geriatric Medicine; Referring Provider Radiology Diagnostic Radiology; Visit Provider Radiology Diagnostic Radiology
DX: M16.12 Unilateral primary osteoarthritis, left hip (principal); I65.23 Occlusion and stenosis of bilateral carotid arteries
CPT/HCPCS: 73502; 93880

== ENCOUNTER 2019-06-21 06:07 | Outpatient (RCR) | payer MEDICARE, OTHER, SELFPAY ==
[2019-05-11 09:41] VITALS: BMI 27.2
[2019-06-21 08:04] LABS: Albumin, Serum 3.6 g/dL (3.2-5.0); BUN 17 mg/dL (7-18); BUN/Creat Ratio 10.6 RATIO (10-20); Calcium,Total 9.3 mg/dL (8.5-10.1); Chloride 110 mmol/L (98-107); Creatinine, Serum 1.61 mg/dL (0.70-1.30); EST Glomerular Filtration Rate 45 mL/min (>60); Est Glom Filt Rate - Afr Amer 54 mL/min (>60); Glucose 97 mg/dL (74-106); Phosphorus 3.1 mg/dL (2.5-4.9); Potassium 4.1 mmol/L (3.5-5.1); Sodium Level 144 mmol/L (136-145)
== END 2019-07-18 18:00 | disposition home or self-care (01) ==
LOC: LAB 06:07
PROVIDERS: Family Provider Family Medicine Geriatric Medicine; PCP Family Medicine Geriatric Medicine; Referring Provider Internal Medicine Nephrology; Visit Provider Internal Medicine Nephrology
DX: E83.52 Hypercalcemia (principal); N18.3 Chronic kidney disease, stage 3 (moderate)
CPT/HCPCS: 36415; 80069

== ENCOUNTER → 2019-09-08 07:49 | Outpatient (CLI) | payer MEDICARE, OTHER, SELFPAY ==
[2019-05-11 09:41] VITALS: BMI 27.2
[2019-09-08 09:13] LABS: Absolute Lymphocyte Count 1.79 X10^3/uL (0.83-4.51); Absolute Neutrophil Count 2.8 X10^3/uL (2.0-7.7); Basophil# 0.07 X10^3/uL; Basophil% 1.2 % (0-1); Eosinophil# 0.28 X10^3/uL; Eosinophils% 4.9 % (0-5); Hematocrit 41.5 % (40-54); Hemoglobin 13.3 g/dL (13.0-16.5); Lymphocyte # 1.79 X10^3/ul (4.0); Lymphocyte % 31.1 % (19-41); Mean Corpuscular Volume 93.7 fL (80-94); Mean Platelet Vol. 10.1 fl (6.2-12.0); Monocyte# 0.81 X10^3/uL; Monocyte% 14.1 % (0-10); NRBC Flagged by Analyzer 0 % (0-5); Neutrophil # 2.78 X10^3/uL (2.7-7.7); Neutrophil % 48.4 % (47-70); Platelet Count 260 K/mm3 (150-450); RBC Distribution Width CV 13.9 % (11.6-14.6); RBC Distribution Width SD 47.8 fl (35.1-43.9); Red Blood Count 4.43 M/mm3 (4.6-6.2); White Blood Count 5.8 K/mm3 (4.4-11.0)
[2019-09-08 09:52] LABS: Vitamin D,25 Hydroxy 47.1 ng/mL (29.95-100.01)
[2019-09-08 10:03] LABS: BUN 19 mg/dL (7-18); Creatinine, Serum 1.49 mg/dL (0.70-1.30); EST Glomerular Filtration Rate 49 mL/min (>60); Glucose 90 mg/dL (74-106)
[2019-09-08 10:04] LABS: ALB/GLOB Ratio 0.9 RATIO (0.9-2.4); AST(SGOT) 23 U/L (15-37); Alanine Aminotransfer ALT/SGPT 19 U/L (16-61); Albumin, Serum 3.7 g/dL (3.2-5.0); Alkaline Phosphatase 77 U/L (45-117); Anion Gap 10 (5-15); BUN/Creat Ratio 12.8 RATIO (10-20); Calcium,Total 9.4 mg/dL (8.5-10.1); Chloride 113 mmol/L (98-107); Est Glom Filt Rate - Afr Amer 59 mL/min (>60); Globulin 4.1 g/dL (2.2-4.2); Potassium 4.2 mmol/L (3.5-5.1); Protein, Total 7.8 g/dL (6.4-8.2); Sodium Level 145 mmol/L (136-145); Thyroid Stim Hormone (TSH) 1.27 uIU/mL (0.358-3.74)
== END ==
LOC: LAB.FUTURE 07:51 → LAB 07:54
PROVIDERS: Family Provider Family Medicine Geriatric Medicine; PCP Family Medicine Geriatric Medicine; Referring Provider Family Medicine Geriatric Medicine; Visit Provider Family Medicine Geriatric Medicine
DX: R53.83 Other fatigue (principal); E55.9 Vitamin D deficiency, unspecified
CPT/HCPCS: 36415; 80053; 82306; 84443; 85025

== ENCOUNTER → 2019-10-24 06:04 | Outpatient (CLI) | payer MEDICARE, OTHER, SELFPAY ==
[2019-05-11 09:41] VITALS: BMI 27.2
[2019-10-24 07:55] LABS: Albumin, Serum 3.5 g/dL (3.2-5.0); BUN 22 mg/dL (7-18); BUN/Creat Ratio 13.7 RATIO (10-20); Calcium,Total 8.9 mg/dL (8.5-10.1); Chloride 110 mmol/L (98-107); Creatinine, Serum 1.61 mg/dL (0.70-1.30); EST Glomerular Filtration Rate 45 mL/min (>60); Est Glom Filt Rate - Afr Amer 54 mL/min (>60); Glucose 87 mg/dL (74-106); Phosphorus 3.9 mg/dL (2.5-4.9); Potassium 4.3 mmol/L (3.5-5.1); Sodium Level 139 mmol/L (136-145)
[2019-10-24 08:51] LABS: PTHIN 76.1 pg/mL (18.4-80.1)
== END ==
PROVIDERS: Family Provider Family Medicine Geriatric Medicine; PCP Family Medicine Geriatric Medicine; Referring Provider Internal Medicine Nephrology; Visit Provider Internal Medicine Nephrology
DX: N18.3 Chronic kidney disease, stage 3 (moderate) (principal); E83.52 Hypercalcemia
CPT/HCPCS: 36415; 80069; 83970

== ENCOUNTER → 2019-11-22 13:52 | Outpatient (CLI) | payer MEDICARE, OTHER, SELFPAY ==
[2019-05-11 09:41] VITALS: BMI 27.2
--- NOTE | 2019-11-22 14:16 | RAD_ITS ---
STUDY: X-RAY - LUMBAR SPINE REASON FOR EXAM: Male, 74 years old. RIGHT SIDE LOW BACK PAIN TECHNIQUE: 2 view(s) of the lumbar spine were obtained. COMPARISON: None FINDINGS: There is minor thoracolumbar junctional scoliosis. Lateral alignment is preserved. There are minor age appropriate generative changes. There are no fractures or destructive lesions. Mineralization is normal. There are surgical clips in the region of the left epigastrium gastroesophageal junction. IVC filter is in place. RAD/Lumbar Spine 2 or 3 Views IMPRESSION: Unremarkable age-appropriate lumbar spine. Electronically Signed: Rajeev Kelly, at 18:17 EST Tel , Service support ,
[2019-11-22 17:47] LABS: Absolute Lymphocyte Count 1.15 X10^3/uL (0.83-4.51); Absolute Neutrophil Count 6.8 X10^3/uL (2.0-7.7); Anion Gap 6 (5-15); BUN 22 mg/dL (7-18); BUN/Creat Ratio 13.7 RATIO (10-20); Basophil# 0.06 X10^3/uL; Basophil% 0.7 % (0-1); Calcium,Total 9.8 mg/dL (8.5-10.1); Chloride 110 mmol/L (98-107); Creatinine, Serum 1.61 mg/dL (0.70-1.30); EST Glomerular Filtration Rate 45 mL/min (>60); Eosinophil# 0.03 X10^3/uL; Eosinophils% 0.4 % (0-5); Est Glom Filt Rate - Afr Amer 54 mL/min (>60); Glucose 95 mg/dL (74-106); Hematocrit 41.7 % (40-54); Hemoglobin 13.5 g/dL (13.0-16.5); Lymphocyte # 1.15 X10^3/ul (4.0); Lymphocyte % 13.6 % (19-41); Mean Corp Hgb Conc 32.4 g/dL (32-36); Mean Corpuscular Hgb 29.7 pg (27.0-32.0); Mean Corpuscular Volume 91.6 fL (80-94); Mean Platelet Vol. 10.3 fl (6.2-12.0); Monocyte% 4.7 % (0-10); NRBC Flagged by Analyzer 0 % (0-5); Neutrophil # 6.81 X10^3/uL (2.7-7.7); Neutrophil % 80.2 % (47-70); Platelet Count 248 K/mm3 (150-450); Potassium 4.1 mmol/L (3.5-5.1); RBC Distribution Width CV 13.2 % (11.6-14.6); RBC Distribution Width SD 44.4 fl (35.1-43.9); Red Blood Count 4.55 M/mm3 (4.6-6.2); Sodium Level 139 mmol/L (136-145); White Blood Count 8.5 K/mm3 (4.4-11.0)
== END ==
PROVIDERS: PCP Family Medicine Geriatric Medicine; Referring Provider Family Medicine Geriatric Medicine; Visit Provider Family Medicine Geriatric Medicine
DX: M54.5 Low back pain (principal); R61 Generalized hyperhidrosis
CPT/HCPCS: 36415; 72100; 80048; 85025

== ENCOUNTER → 2019-12-27 09:17 | Outpatient (CLI) | payer MEDICARE, OTHER, SELFPAY ==
[2019-05-11 09:41] VITALS: BMI 27.2
[2019-12-27 11:56] LABS: Absolute Lymphocyte Count 1.58 X10^3/uL (0.83-4.51); Absolute Neutrophil Count 3.4 X10^3/uL (2.0-7.7); Basophil# 0.06 X10^3/uL; Eosinophil# 0.15 X10^3/uL; Eosinophils% 2.6 % (0-5); Hematocrit 39.7 % (40-54); Hemoglobin 13.2 g/dL (13.0-16.5); Lymphocyte # 1.58 X10^3/ul (4.0); Lymphocyte % 27.6 % (19-41); Mean Corp Hgb Conc 33.2 g/dL (32-36); Mean Corpuscular Hgb 30.4 pg (27.0-32.0); Mean Corpuscular Volume 91.5 fL (80-94); Mean Platelet Vol. 10.1 fl (6.2-12.0); Monocyte# 0.54 X10^3/uL; Monocyte% 9.4 % (0-10); NRBC Flagged by Analyzer 0 % (0-5); Neutrophil # 3.36 X10^3/uL (2.7-7.7); Neutrophil % 58.9 % (47-70); Platelet Count 265 K/mm3 (150-450); RBC Distribution Width CV 13.5 % (11.6-14.6); RBC Distribution Width SD 45.6 fl (35.1-43.9); Red Blood Count 4.34 M/mm3 (4.6-6.2); White Blood Count 5.7 K/mm3 (4.4-11.0)
[2019-12-27 12:10] LABS: Vitamin D,25 Hydroxy 47.3 ng/mL
[2019-12-27 12:20] LABS: AST(SGOT) 26 U/L (15-37); Alanine Aminotransfer ALT/SGPT 28 U/L (16-61); Albumin, Serum 3.9 g/dL (3.2-5.0); Alkaline Phosphatase 71 U/L (45-117); Anion Gap 7 (5-15); BUN 20 mg/dL (7-18); BUN/Creat Ratio 13.2 RATIO (10-20); Calcium,Total 9.4 mg/dL (8.5-10.1); Chloride 110 mmol/L (98-107); Creatinine, Serum 1.51 mg/dL (0.70-1.30); EST Glomerular Filtration Rate 48 mL/min (>60); Est Glom Filt Rate - Afr Amer 58 mL/min (>60); Globulin 3.8 g/dL (2.2-4.2); Glucose 98 mg/dL (74-106); Potassium 4.1 mmol/L (3.5-5.1); Protein, Total 7.7 g/dL (6.4-8.2); Sodium Level 140 mmol/L (136-145); Thyroid Stim Hormone (TSH) 0.91 uIU/mL (0.358-3.74)
== END ==
PROVIDERS: PCP Family Medicine Geriatric Medicine; Visit Provider Family Medicine Geriatric Medicine
DX: E55.9 Vitamin D deficiency, unspecified (principal); R53.83 Other fatigue
CPT/HCPCS: 36415; 80053; 82306; 84443; 85025

== ENCOUNTER → 2020-03-26 | Outpatient (CLI) | payer MEDICARE, OTHER, SELFPAY ==
[2019-12-29 11:16] VITALS: BMI 25.9
--- NOTE | 2020-03-26 12:18 | CT_ITS ---
STUDY: CT BRAIN WITHOUT CONTRAST REASON FOR EXAM: Male, 74 years old. ENCEPHALOPATHY -- MENTAL STATUS CHANGE RADIATION DOSAGE (If Supplied By Facility): CTDIvol = ( 44.99 ) mGy, DLP = ( 796.11 ) mGycm TECHNIQUE: Transaxial CT imaging of the brain was performed without administration of intravenous contrast material. Individualized dose optimization techniques were used for this CT. COMPARISON: Comparison is made with prior examination dated February 05, 2019 and July 15, 2018. FINDINGS: Normal soft tissue structures. Normal calvarium. There is mild cerebral atrophy with widening of the extra-axial spaces and ventricular dilatation. There are areas of decreased attenuation within the white matter tracts of the supratentorial brain, consistent with microvascular disease changes. Normal basal ganglia and thalami. Normal brainstem. Normal cerebellum. There is no intracranial hemorrhage. There are no findings of an acute ischemic infarction. Atherosclerotic calcification of the cavernous portions of the internal carotid arteries bilaterally. Normal visualized paranasal sinuses. CT/Brain/Head without Contrast IMPRESSION: Chronic involutional changes of the brain. Electronically Signed: Nigel Jackson, at 12:46 EDT , Service support ,
[2020-03-26 17:11] LABS: Absolute Lymphocyte Count 2.11 X10^3/uL (0.83-4.51); Absolute Neutrophil Count 5.1 X10^3/uL (2.0-7.7); Basophil# 0.11 X10^3/uL; Basophil% 1.2 % (0-1); Eosinophil# 0.56 X10^3/uL; Eosinophils% 6.2 % (0-5); Hematocrit 42.4 % (40-54); Hemoglobin 13.6 g/dL (13.0-16.5); Lymphocyte # 2.11 X10^3/ul (4.0); Lymphocyte % 23.5 % (19-41); Mean Corp Hgb Conc 32.1 g/dL (32-36); Mean Corpuscular Hgb 31.2 pg (27.0-32.0); Mean Corpuscular Volume 97.2 fL (80-94); Mean Platelet Vol. 10.3 fl (6.2-12.0); Monocyte# 0.97 X10^3/uL; Monocyte% 10.8 % (0-10); NRBC Flagged by Analyzer 0 % (0-5); Neutrophil # 5.14 X10^3/uL (2.7-7.7); Neutrophil % 57.2 % (47-70); Platelet Count 242 K/mm3 (150-450); RBC Distribution Width CV 13.5 % (11.6-14.6); Red Blood Count 4.36 M/mm3 (4.6-6.2)
[2020-03-26 17:38] LABS: AST(SGOT) 25 U/L (15-37); Alanine Aminotransfer ALT/SGPT 29 U/L (16-61); Alkaline Phosphatase 75 U/L (45-117); Anion Gap 9 (5-15); BUN 25 mg/dL (7-18); BUN/Creat Ratio 15.9 RATIO (10-20); Calcium,Total 9.4 mg/dL (8.5-10.1); Chloride 108 mmol/L (98-107); Creatinine, Serum 1.57 mg/dL (0.70-1.30); EST Glomerular Filtration Rate 46 mL/min (>60); Est Glom Filt Rate - Afr Amer 56 mL/min (>60); Globulin 4.2 g/dL (2.2-4.2); Glucose 86 mg/dL (74-106); Potassium 5.2 mmol/L (3.5-5.1); Protein, Total 8.2 g/dL (6.4-8.2); Sodium Level 141 mmol/L (136-145); Thyroid Stim Hormone (TSH) 1.53 uIU/mL (0.358-3.74)
== END | disposition home or self-care (01) ==
PROVIDERS: PCP Family Medicine Geriatric Medicine; Referring Provider Family Medicine Geriatric Medicine; Visit Provider Family Medicine Geriatric Medicine
DX: G93.9 Disorder of brain, unspecified (principal); R53.83 Other fatigue
CPT/HCPCS: 36415; 70450; 80053; 84443; 85025

== ENCOUNTER → 2020-03-29 07:06 | Outpatient (CLI) | payer MEDICARE, OTHER, SELFPAY ==
[2019-12-29 11:16] VITALS: BMI 25.9
--- NOTE | 2020-03-29 07:20 | MRI_ITS ---
STUDY: MRI BRAIN WITHOUT CONTRAST REASON FOR EXAM: Male, 74 years old. dementia, MEMORY ISSUES, BALANCE ISSUES TECHNIQUE: Standardized multiplanar fat and water weighted pulse sequences were obtained. COMPARISON: CT of the head dated March 26, 2020 FINDINGS: There is mild cerebral atrophy with widening of the extra-axial spaces and ventricular dilatation. There are multiple white matter hyperintensities, distributed throughout the deep white matter tracts of the cerebral hemispheres, consistent with moderate chronic white matter ischemic changes. Normal bilateral basal ganglia. Normal thalami. There is no extra-axial fluid accumulation. Normal flow voids within the major intracranial circulation suggesting patency by spin echo criteria. Normal sella turcica, pituitary gland, infundibular stalk, optic chiasm and hypothalamus. Normal tectal plate and pineal gland. Normal midbrain, gris and medulla. Normal cerebellum. Normal basal cisterns. MRI/Brain without Contrast IMPRESSION: No acute intracranial abnormality. Mild involutional changes. Electronically Signed: Rosa Diez MD at 15:33 EDT Tel , Service support ,
== END ==
PROVIDERS: PCP Family Medicine Geriatric Medicine; Referring Provider Family Medicine Geriatric Medicine; Visit Provider Family Medicine Geriatric Medicine
DX: F01.50 Vascular dementia, unspecified severity, without behavioral disturbance, psychotic disturbance, mood disturbance, and anxiety (principal)
CPT/HCPCS: 70551

== ENCOUNTER → 2020-04-02 13:57 | Outpatient (CLI) | payer MEDICARE, OTHER, SELFPAY ==
[2019-12-29 11:16] VITALS: BMI 25.9
== END ==
PROVIDERS: PCP Family Medicine Geriatric Medicine; Referring Provider Family Medicine Geriatric Medicine; Visit Provider Family Medicine Geriatric Medicine
DX: F01.50 Vascular dementia, unspecified severity, without behavioral disturbance, psychotic disturbance, mood disturbance, and anxiety (principal)

== ENCOUNTER → 2020-04-30 11:02 | Outpatient (CLI) | payer MEDICARE, OTHER, SELFPAY ==
[2019-12-29 11:16] VITALS: BMI 25.9
[2020-04-30 12:41] LABS: Absolute Lymphocyte Count 2.06 X10^3/uL (0.83-4.51); Absolute Neutrophil Count 3.7 X10^3/uL (2.0-7.7); Basophil# 0.09 X10^3/uL; Basophil% 1.3 % (0-1); Eosinophil# 0.28 X10^3/uL; Eosinophils% 3.9 % (0-5); Hematocrit 44.3 % (40-54); Hemoglobin 14.4 g/dL (13.0-16.5); Lymphocyte # 2.06 X10^3/ul (4.0); Mean Corp Hgb Conc 32.5 g/dL (32-36); Mean Corpuscular Volume 95.5 fL (80-94); Mean Platelet Vol. 10.6 fl (6.2-12.0); Monocyte# 0.87 X10^3/uL; Monocyte% 12.2 % (0-10); NRBC Flagged by Analyzer 0 % (0-5); Neutrophil # 3.73 X10^3/uL (2.7-7.7); Neutrophil % 52.5 % (47-70); Platelet Count 190 K/mm3 (150-450); RBC Distribution Width SD 45.1 fl (35.1-43.9); Red Blood Count 4.64 M/mm3 (4.6-6.2); White Blood Count 7.1 K/mm3 (4.4-11.0)
[2020-04-30 12:59] LABS: Vitamin D,25 Hydroxy 35.5 ng/mL
[2020-04-30 13:58] LABS: AST(SGOT) 35 U/L (15-37); Alanine Aminotransfer ALT/SGPT 31 U/L (16-61); Albumin, Serum 3.8 g/dL (3.2-5.0); Alkaline Phosphatase 74 U/L (45-117); Anion Gap 14 (5-15); BUN 32 mg/dL (7-18); BUN/Creat Ratio 20.5 RATIO (10-20); Chloride 109 mmol/L (98-107); Creatinine, Serum 1.56 mg/dL (0.70-1.30); EST Glomerular Filtration Rate 46 mL/min (>60); Est Glom Filt Rate - Afr Amer 56 mL/min (>60); Globulin 3.9 g/dL (2.2-4.2); Glucose 97 mg/dL (74-106); Potassium 4.5 mmol/L (3.5-5.1); Protein, Total 7.7 g/dL (6.4-8.2); Sodium Level 141 mmol/L (136-145); Thyroid Stim Hormone (TSH) 1.84 uIU/mL (0.358-3.74)
== END ==
PROVIDERS: PCP Family Medicine Geriatric Medicine; Visit Provider Family Medicine Geriatric Medicine
DX: E55.9 Vitamin D deficiency, unspecified (principal); R53.83 Other fatigue
CPT/HCPCS: 36415; 80053; 82306; 84443; 85025

== ENCOUNTER → 2020-05-04 06:33 | Outpatient (CLI) | payer MEDICARE, OTHER, SELFPAY ==
[2019-12-29 11:16] VITALS: BMI 25.9
[2020-05-04 07:56] LABS: Albumin, Serum 3.7 g/dL (3.2-5.0); BUN 29 mg/dL (7-18); BUN/Creat Ratio 17.3 RATIO (10-20); Calcium,Total 8.9 mg/dL (8.5-10.1); Chloride 111 mmol/L (98-107); Creatinine, Serum 1.68 mg/dL (0.70-1.30); EST Glomerular Filtration Rate 43 mL/min (>60); Est Glom Filt Rate - Afr Amer 51 mL/min (>60); Glucose 116 mg/dL (74-106); Phosphorus 3.3 mg/dL (2.5-4.9); Potassium 4.5 mmol/L (3.5-5.1); Sodium Level 140 mmol/L (136-145)
== END ==
PROVIDERS: PCP Family Medicine Geriatric Medicine; Referring Provider Internal Medicine Nephrology; Visit Provider Internal Medicine Nephrology
DX: N18.3 Chronic kidney disease, stage 3 (moderate) (principal)
CPT/HCPCS: 36415; 80069

== ENCOUNTER 2020-05-08 16:09 | Inpatient (IN) | payer MEDICARE, OTHER, SELFPAY ==
[2019-12-29 11:16] VITALS: BMI 25.9
[2020-05-08] VITALS (7 sets, daily range): BP systolic 103–150; BP diastolic 62–97; PULSE 74–103; RESP 15–22; TEMP 36.8–37.3; O2SAT 97–100; BMI 28.9; BMI 27.7
--- NOTE | 2020-05-08 16:22 | CT_ITS ---
STUDY: CT BRAIN WITHOUT CONTRAST REASON FOR EXAM: Male, 74 years old. Seizure RADIATION DOSAGE (If Supplied By Facility): CTDIvol = ( 44.99 ) mGy, DLP = ( 796.11 ) mGycm TECHNIQUE: Transaxial CT imaging of the brain was performed without administration of intravenous contrast material. Individualized dose optimization techniques were used for this CT. COMPARISON: 03/26/2020 FINDINGS: There is no acute bleed or infarct. There are stable chronic ischemic and atrophic changes. The ventricles are normal in configuration. There is no hydrocephalus. The visualized paranasal sinuses are clear. The mastoid air cells are well aerated. There is no skull fracture. CT/Brain/Head without Contrast IMPRESSION: Stable chronic ischemic and atrophic changes. No acute intracranial abnormality. Electronically Signed: Raymond Kang, at 17:36 EDT Tel , Service support ,
--- NOTE | 2020-05-08 16:22 | EKG12_ITS ---
Test Reason : SEIZURES Blood Pressure : / mmHG Vent. Rate : 090 BPM Atrial Rate : 090 BPM P-R Int : 172 ms QRS Dur : 086 ms QT Int : 342 ms P-R-T Axes : 052 -28 059 degrees QTc Int : 418 ms Normal sinus rhythm Normal ECG Confirmed by SWAPNIL DASH ([id number]), website/blog editor LIONEL WALL ([id number]) on 05/10/2020 2:46:04 PM Referred By: DANIEL Confirmed By:SWAPNIL DASH
[2020-05-08 17:43] LABS: Anion Gap 8 (5-15); BUN 28 mg/dL (7-18); BUN/Creat Ratio 15.5 RATIO (10-20); Chloride 110 mmol/L (98-107); Creatinine, Serum 1.81 mg/dL (0.70-1.30); EST Glomerular Filtration Rate 39 mL/min (>60); Est Glom Filt Rate - Afr Amer 47 mL/min (>60); Estimated Creatinine Clearance 34.12 ml/min; Glucose 99 mg/dL (74-106); Potassium 4.3 mmol/L (3.5-5.1); Sodium Level 141 mmol/L (136-145)
[2020-05-08 18:29] LABS: Absolute Lymphocyte Count 1.97 X10^3/uL (0.83-4.51); Absolute Neutrophil Count 9.5 X10^3/uL (2.0-7.7); Basophil# 0.14 X10^3/uL; Eosinophil# 0.28 X10^3/uL; Hematocrit 48.8 % (40-54); Hemoglobin 15.5 g/dL (13.0-16.5); Lymphocyte # 1.97 X10^3/ul (4.0); Lymphocyte % 14.4 % (19-41); Mean Corp Hgb Conc 31.8 g/dL (32-36); Mean Corpuscular Hgb 31.3 pg (27.0-32.0); Mean Corpuscular Volume 98.6 fL (80-94); Mean Platelet Vol. 11.1 fl (6.2-12.0); Monocyte# 1.64 X10^3/uL; NRBC Flagged by Analyzer 0 % (0-5); Neutrophil # 9.53 X10^3/uL (2.7-7.7); Neutrophil % 69.8 % (47-70); POSITIVE COUNT YES; POSITIVE DIFFERENTIAL YES; RBC Distribution Width CV 12.8 % (11.6-14.6); RBC Distribution Width SD 45.3 fl (35.1-43.9); Red Blood Count 4.95 M/mm3 (4.6-6.2); White Blood Count 13.7 K/mm3 (4.4-11.0)
[2020-05-08] MEDS: Acetaminophen 500 MG Tablet 1000 MG PO (18:35)
[2020-05-08 18:52] LABS: Differential Indicated SCAN CRITERIA MET
[2020-05-08 18:56] LABS: Anisocytosis RARE; Macrocytosis RARE; Platelet Estimate SLT DEC (ADEQ); Red Cell Morphology N CHROM NORMAL (NORM C&C)
--- NOTE | 2020-05-08 18:56 | ED.VISSUMM ---
- ER Visit Summary Date of Service: 05/08/20 Chief Complaint: Syncope versus seizure History of Present Illness: The patient is a [address] Lira and Dr. Chou. He has a history of dementia and is a poor informant. reports that he had walked into the living room and was staring blankly out the window. She looked at him and he looked pale. She had him sit down on the foot still and he continued to have a blank stare. He then began having diffuse shaking and she laid him on the floor. He was stiff and red in the face and grasping for air. This lasted approximately 5 minutes. He did not have any incontinence. Did not bite his tongue. Does not sound as though he had a postictal episode. Review of systems: General: No fever, chills, cold sweats. Cardiovascular: No chest pain, palpitations. Respiratory: No cough, shortness of breath, dyspnea on exertion. Gastrointestinal: No abdominal pain, nausea, vomiting, diarrhea, melena, or hematochezia. Genitourinary: No dysuria, frequency, hematuria. Skin: No rash. Neuro: No headache, numbness, weakness. Physical Examination: Vitals: Stable. Afebrile. General: Well-nourished and well-developed. Head: Normocephalic atraumatic. Neck: Supple, no lymphadenopathy. No JVD. Nontender. Cardiovascular: Regular rate and rhythm. No murmurs. Respiratory: No respiratory distress. Clear to auscultation bilaterally. Abdominal: Soft, nontender, nondistended, normal bowel sounds. No guarding, rebound, or peritoneal signs. Back: Nontender. Extremities: Nontender, no edema. Skin: Normal color, no rash. Neurologic: Alert and oriented ?2. Cranial nerves II through XII are intact. Normal strength and sensation. Psych: Normal affect. Test Results: EKG is sinus at [address] changes. CBC shows a white count of 13.7 with 14 lymphocytes and 12 monocytes. Chem-7 shows a chloride of 110, BUN of 28, creatinine 1.81. Troponin is negative. CT brain shows chronic changes. Urinalysis is negative. Chest x-ray shows chronic changes. Emergency Department Course and Treatment: Patient has had no seizure activity while here. He was given Tylenol p.o. patient's lactic acid is elevated. He has no infectious complaints. This does make the possibility of seizure more likely. Treatment Plan: History mueller it sounds as though the patient had a syncopal episode, but he was out for a prolonged period of time. He will be discussed with Dr. Polk and admitted for further evaluation and treatment. Disposition: Admitted in stable condition. Impression: 1. Syncope. 2. Chronic renal insufficiency. 3. Dementia. This note was generated with [employer] dictation software. It may contain incorrect words, spelling, and punctuation that were not noted in review of the chart prior to signing ED Disposition - Plan for ED Patient: Referrals: Carlos Lira Chi, MD [Primary Care Provider] -
[2020-05-08 19:07] LABS: Lactic Acid 3.6 mmol/L (0.4-1.9)
--- NOTE | 2020-05-08 19:11 | RAD_ITS ---
STUDY: X-RAY CHEST REASON FOR EXAM: Male, 74 years old. Seizure TECHNIQUE: Frontal view of the chest COMPARISON: 02/03/2019 FINDINGS: The lungs are clear. There are no pleural effusions. There is no pneumothorax. The heart is normal in size. The patient is status post sternotomy. The visualized osseous structures are within normal limits. RAD/Chest 1 View (Portable) IMPRESSION: No acute thoracic pathology. Electronically Signed: Raymond Kang, at 20:05 EDT Tel , Service support ,
[2020-05-08] MEDS: 0.9% Normal Saline 1,000 ML 999 ML IV (19:36)
[2020-05-08 20:52] LABS: Bacteria 0 SEEN /hpf (None Seen); Mucous, Urine 0 SEEN /hpf (<or=2+); Red Blood Cells-Urine 0 SEEN /hpf (0-5); Squamous Epithelial Cells - UA 0 SEEN /hpf (0-5); White Blood Cells 0 SEEN /hpf (0-5)
[2020-05-08 20:56] LABS: Color, Urine Straw (Yellow); Glucose, Dipstick Normal (Normal); Ketone-Dipstick Negative (Negative); Leukocyte Esterase-Dipstick Negative /ul (Negative); Nitrite-Dipstick Negative (Negative); Occult Blood-Urine Negative /ul (Negative); Protein-Dipstick Negative (Negative); Urine Bilirubin Dipstick Negative (Negative); Urine Clarity Clear (Clear); Urine Urobilinogen Normal (Normal)
[2020-05-08 22:25] LABS: Reflex Lactate? Y
[2020-05-09] VITALS (9 sets, daily range): BP systolic 114–149; BP diastolic 71–101; PULSE 71–112; RESP 18–20; TEMP 36.8–37.5; O2SAT 94–97
--- NOTE | 2020-05-09 01:21 | ECHOD_ITS ---
Reason For Study: SYNCOPE/NEAR SYNCOPE Procedure This was a 2D Doppler, Color Flow transthoracic echocardiogram. The study was technically difficult. PT UNABLE TO LIE STILL, MOVING CONSTANTLY. Exam performed portable in patient room. Left Ventricle Normal LV size. The estimated ejection fraction is 60 %. Unable to assess diastolic dysfunction. No regional wall motion abnormalities noted. Right Ventricle Normal RV size. Normal systolic function. Atria Normal left atrium. Normal right atrium. No doppler evidence for ASD. Mitral Valve There is moderate to severe mitral annular calcification. There is no mitral valve stenosis. No mitral valve insufficiency. Tricuspid Valve There is no tricuspid stenosis. Trivial tricuspid valve insufficiency. Pulmonary artery systolic pressure is 30 mmHg. Aortic Valve There is no aortic stenosis. No aortic valve insufficiency. Bioprosthetic aortic valve. Pulmonic Valve There is no pulmonic valvular stenosis. No pulmonic valve insufficiency. Great Vessels Normal aortic root. Pericardium/Pleural No pericardial effusion. MMode/2D Measurements & Calculations LVIDd: 3.7 cm IVSd: 1.0 cm LAV(MOD-bp): 49.7 ml LVIDs: 2.4 cm LVPWd: 1.0 cm LAV(MOD-bp) Indexed: 25.3 ml/m2 RVDd: 3.1 cm FS: 34.2 % LAV(MOD-sp2): 52.1 ml LAV(MOD-sp4): 46.9 ml LA dimension(2D): 3.4 cm LA A4 area: 17.1 cm2 RA A4 area: 12.6 cm2 Doppler Measurements & Calculations MV E max carmelo: 87.1 cm/sec Lat Peak E' Carmelo: 10.8 cm/sec Med Peak E' Carmelo: 7.2 cm/sec MV A max carmelo: 132.4 cm/sec E/E' lat: 8.1 E/E' med: 12.1 MV E/A: 0.66 Ao V2 max: 165.6 cm/sec LV V1 max: 95.4 cm/sec PA V2 max: 138.5 cm/sec Ao max P.0 mmHg LV V1 max P.6 mmHg Ao V2 mean: 110.4 cm/sec LV V1 mean P.6 mmHg Ao mean P.5 mmHg LV V1 mean: 59.4 cm/sec Ao V2 VTI: 28.9 cm LV V1 VTI: 15.7 cm TR max carmelo: 239.2 cm/sec TR max P.9 mmHg Interpretation Summary The estimated ejection fraction is 60 %. Unable to assess diastolic dysfunction. The study was technically difficult. Ordering Physician: Ciro Polk Referring Physician: Carlos Lira Chi Performed By: Melissa Crocker RDCS, RVT
[2020-05-09 01:51] LABS: Lactic Acid 1.3 mmol/L (0.4-1.9)
[2020-05-09 01:51] LABS: Prolactin 18.3 ng/mL
--- NOTE | 2020-05-09 04:16 | PCM.HP.STD ---
Problem List (1) Syncope Status: Acute History of Present Illness Date of Admission: 05/08/20 Chief Complaint: syncope and shaking spell Patient was seen on 05/08/2020 at 2130. The patient is a 74 year old M with a significant history of venous thromboembolism; and dementia who presented to the emergency department with syncope and shaking spells. His reported that patient was shaking and then he went into a tonic clonic movements of his extremities. Also patient was noted to have a flushed face. Reportedly patient briefly lost consciousness. After he regained consciousness the patient looked confused briefly. Patient was not incontinent of bowel or bladder. He did not bite his tongue. Past Medical History Past Medical History (Chronic Problems): Chronic Problems (Last Reviewed 05/09/20 @ 04:[address] Ciro Polk MD) Non-rheumatic aortic stenosis (Chronic) Bilateral carotid artery stenosis (Chronic) stenting of left common carotid artery bifurcation 03/2019, stenting of right common carotid artery bifurcation 05/2018 CVA (cerebral vascular accident) (Chronic 03/2019) left hemispheric Essential (primary) hypertension (Chronic) Hyperlipidemia (Chronic) Medical History: Medical History (Last Reviewed 05/09/20 @ 04:[address] 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 removed January 2019 Family history of kidney stone (Inactive) Hip fracture, left S72.002A Poor balance (Inactive) R26.89 Allergies penicillin V Allergy (Mild, Verified 05/08/20 16:15) hives codeine Adverse Reaction (Mild, Verified 05/08/20 16:15) upset stomach divalproex sodium [From Depakote] Adverse Reaction (Verified 05/08/20 16:15) Other Per family, pt became very comatose on medication haloperidol [From Haldol] Adverse Reaction (Verified 05/08/20 16:15) Other Per family, pt became very comatose on medication pecans Allergy (Mild, Uncoded 05/08/20 16:15) stomach cramps Home Medications: Ambulatory Orders Medication Instructions Recorded Clopidogrel Bisulfate [Plavix] 75 mg GT DAILY #30 tab 03/16/19 Ascorbic Acid [Vitamin C] 1,000 mg PO DAILY 05/08/20 Aspirin [Aspirin EC] 81 mg PO QODAY 05/08/20 Cholecalciferol (Vitamin D3) 2,000 unit PO DAILY 05/08/20 [Vitamin D3] Docusate Sodium [Colace] 100 mg PO BID 05/08/20 Doxazosin Mesylate [Cardura] 2 mg PO DAILY 05/08/20 Galantamine HBr 4 mg PO BID 05/08/20 Pitavastatin Calcium [Livalo] 4 mg PO DAILY 05/08/20 Surgical History: Surgical History (Last Reviewed 05/09/20 @ 04:[address] 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 Psychiatric History: Bipolar Smoking Status: Never smoker - *Family History Maternal Family History: Family History (Last Reviewed 05/09/20 @ 04:[address] Ciro Polk MD) Brother Diabetes Mother Heart disease Sister Heart disease History Items: No pertinent history Paternal Family History: Family History (Last Reviewed 05/09/20 @ 04:[address] Ciro Polk MD) Brother Diabetes Mother Heart disease Sister Heart disease History Items: No pertinent history Review of Systems Constitutional: Denies: Chills, Fever, Weight Change HEENT: Denies: Head Aches, Sinus Congestion, Sinus Drainage Cardiovascular: Reports: Syncope. Denies: Chest Pain, Palpitations Respiratory: Denies: Cough, Shortness of breath at rest, Sputum production Gastrointestinal: Denies: Abdominal Pain, Nausea, Vomiting Genitourinary: Denies: Dysuria Musculoskeletal: Denies: Joint Pain, Joint Tenderness Skin: Denies: Rash, Wounds Neurological: Reports: Confusion. Denies: Focal weakness, Numbness, Tingling Psychiatric: Denies: Anxiety, Depression, Homicidal Ideations, Suicidal Ideations Hematologic/ Lymphatic: Denies: Easy Bruising, Easy Bleeding VTE Information - Inpt Only VTE Present on Admission: No VTE Mechan Device Prophylaxis: None VTE Pharm Prophylaxis ordered?: No Reason prophylaxis not ordered:: Treatment Not Indicated - Patient has a [place] filter. Patient Problems: Active and Suspected Problems (Last Reviewed 05/09/20 @ 04:[address] Ciro Polk MD) Syncope (Acute) - Physical Exam Vitals/I&O's: Vital Signs Temp Pulse Resp BP Pulse Ox 98.7 F 71 18 127/76 H 97 05/08/20 22:45 05/09/20 03:00 05/08/20 22:45 05/08/20 22:45 05/08/20 22:45 Oxygen Delivery Method Room Air Weight: 82.7 kg Body Mass Index (BMI) 27.7 Intake and Output for Last 24 Hours 05/07/20 05/08/20 05/09/20 23:59 23:59 23:59 Intake Total 1500 / 1500 Balance 1500 / 1500 General: Alert, Confused HEENT: Atraumatic, Normocephalic, - - Glasslike object in right eye. Neck: Supple, No JVD, Negative Carotid Bruits Lungs: Clear to auscultation, Normal air movement, No rhonchi, No wheeze, No rales Cardiovascular: Regular rate, Normal S1, Normal S2, No murmurs Abdomen: Bowel Sounds Present, Soft, Non Tender Extremities: No edema, Capillary Refill Less than 3 Seconds Skin: No rashes, No breakdown Musculoskeletal: No Tenderness to Palpation of Joints or Extremities Neurological: Cranial nerves II-XII grossly intact Psych/Mental Status: Normal Affect, Appropriate Laboratory Results 05/08/20 17:00: WBC Cancelled, Corrected WBC Cancelled, RBC Cancelled, Hgb Cancelled, Hct Cancelled, MCV Cancelled, MCH Cancelled, MCHC Cancelled, RDW Std Deviation Cancelled, RDW Coeff of Mally Cancelled, Plt Count Cancelled, MPV Cancelled, Immature Gran % (Auto) Cancelled, Neut % (Auto) Cancelled, Lymph % (Auto) Cancelled, [place] % (Auto) Cancelled, Eos % (Auto) Cancelled, Baso % (Auto) Cancelled, Absolute Neuts (auto) Cancelled, Absolute Lymphs (auto) Cancelled, Total Counted Cancelled, Neutrophils % (Manual) Cancelled, Band Neutrophils % Cancelled, Lymphocytes % (Manual) Cancelled, Monocytes % (Manual) Cancelled, Eosinophils % (Manual) Cancelled, Basophils % (Manual) Cancelled, Metamyelocytes % Cancelled, Myelocytes % Cancelled, Promyelocytes % Cancelled, Blast Cells % Cancelled, Plasma Cell % (Manual) Cancelled, Other Cells % Cancelled, Nucleated RBC % Cancelled, Nucleated RBCs/100 WBC Cancelled, Differential Comment Cancelled, Diff Path Review Cancelled, Hypersegmented Neuts Cancelled, Atypical Lymphocytes Cancelled, Reactive Lymphocytes Cancelled, Smudge Cells Cancelled, Toxic Granulation Cancelled, Toxic Vacuolation Cancelled, Dohle Bodies Cancelled, Bogdan Rods Cancelled, Platelet Estimate Cancelled, Plt Morphology Comment Cancelled, RBC Morphology Cancelled, Polychromasia Cancelled, Hypochromasia Cancelled, Poikilocytosis Cancelled, Basophilic Stippling Cancelled, Anisocytosis Cancelled, Microcytosis Cancelled, Macrocytosis Cancelled, Spherocytes Cancelled, Sickle Cells Cancelled, Target Cells Cancelled, Tear Drop Cells Cancelled, Ovalocytes Cancelled, Stomatocytes Cancelled, [place] Bodies Cancelled, [place] Cells Cancelled, Bite Cells Cancelled, Crenated Cell Cancelled, Acanthocytes (Spur) Cancelled, Rouleaux Cancelled, Schistocytes Cancelled 05/08/20 17:00: Sodium 141, Potassium 4.3, Chloride 110 H, Carbon Dioxide 23.0, Anion Gap 8, BUN 28 H, Creatinine 1.81 H, Estim Creat Clear Calc 34.12, Est GFR (MDRD) Af Amer 47 L, Est GFR (MDRD) Non-Af 39 L, BUN/Creatinine Ratio 15.5, Glucose 99, Calcium 9.0, Troponin I < 0.015 05/08/20 17:00: Prolactin 18.3 05/08/20 18:20: Lactic Acid 3.6 H* 05/08/20 18:20: WBC 13.7 H, RBC 4.95, Hgb 15.5, Hct 48.8, MCV 98.6 H, MCH 31.3, MCHC 31.8 L, RDW Std Deviation 45.3 H, RDW Coeff of Mally 12.8, Plt Count TNP, MPV 11.1, Immature Gran % (Auto) 0.800, Neut % (Auto) 69.8, Lymph % (Auto) 14.4 L, [place] % (Auto) 12.0 H, Eos % (Auto) 2.0, Baso % (Auto) 1.0, Absolute Neuts (auto) 9.5 H, Absolute Lymphs (auto) 1.97, Nucleated RBC % 0, Differential Comment SEE COMMENT, Diff Path Review May foll, Platelet Estimate SLT DEC, RBC Morphology N CHROM, Anisocytosis RARE, Macrocytosis RARE 05/08/20 20:45: Urine Color Straw, Urine Clarity Clear, Urine pH 7.0, Ur Specific [place] 1.010, Urine Protein Negative, Urine Glucose (UA) Normal, Urine Ketones Negative, Urine Occult Blood Negative, Urine Nitrite Negative, Urine Bilirubin Negative, Urine Urobilinogen Normal, Ur Leukocyte Esterase Negative, Urine RBC 0 SEEN, Urine WBC 0 SEEN, Ur Squamous Epith Cells 0 SEEN, Urine Bacteria 0 SEEN, Urine Mucus 0 SEEN 05/08/20 22:35: Lactic Acid Cancelled 05/09/20 01:20: Lactic Acid 1.3 Current Medications Acetaminophen (Tylenol) 650 mg PO Q6H PRN PRN PRN Reason: Pain Score 1-10/Temp > 100.7 F Albuterol Sulfate (Ventolin Aerosols) 2.5 mg INHALATION Q2H PRN PRN PRN Reason: SOB/Wheezing Ascorbic Acid (Vitamin C) 1,000 mg PO DAILY ENDER Aspirin (Ecotrin) 81 mg PO QODAY ENDER Atorvastatin Calcium (Lipitor) 20 mg PO QHS ENDER Cholecalciferol (Vitamin D (25mcg)) 2,000 unit PO DAILY ENDER Clopidogrel Bisulfate (Plavix) 75 mg GT DAILY [facility] Dextrose (D50w Syringe) 0 gm IV X1 PRN; Protocol PRN Reason: Hypoglycemia Docusate Sodium (Colace) 100 mg PO BID ENDER Doxazosin Mesylate (Cardura) 2 mg PO DAILY ENDER Enoxaparin Sodium (Lovenox) 40 mg SC DAILY ENDER Galantamine Hydrobromide ([place]) 4 mg PO BID ENDER Glucagon () 1 mg IM .X1 PRN PRN Reason: Hypoglycemia Sodium Chloride () 250 mls @ 15 mls/hr IV .[id number] PRN PRN Reason: Saline Flush Sodium Chloride () 250 mls @ 15 mls/hr IV .[id number] PRN PRN Reason: Additional IVPB Infusion Lorazepam (Ativan) 2 mg IV PRN PRN PRN Reason: SEIZURES Melatonin (Melatonin) 3 mg PO QHS PRN PRN PRN Reason: INSOMNIA Ondansetron HCl (Zofran) 4 mg IV Q8H PRN PRN PRN Reason: NAUSEA/VOMITING Sodium Chloride () 10 - 40 ml IV UD PRN PRN Reason: SALINE FLUSH Assessment/Plan All Active Problems (Last Reviewed 05/09/20 @ 04:[address] Ciro Polk MD) Syncope (Acute) H/O aortic valve replacement (Resolved 09/23/18) Acute kidney injury (Resolved) Acute respiratory failure (Resolved) Tracheostomy in place (Resolved) The patient is a 74 year old M with a significant history of venous thromboembolism; and dementia who presented to the emergency department with syncope and shaking spells. Syncope Orthostatic vitals ordered Etiology is unclear. EKG showed sinus rhythm with nonspecific abnormalities. Get an echocardiogram. CT head was unremarkable. Probable seizure PRN Ativan ordered. CT head head unremarkable We will check prolactin level. Seizure precautions. EEG ordered. Lactic acidosis Lactic acid of 3.6 on presentation Likely secondary to syncope and seizure. Trend lactic acid. Dementia Galantamine continued BPH Doxazosin continued History of VTE A [place] filter in place. 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 Stable DVT Prophylaxis Not indicated. Patient has a F[place] filter in place. OBSV E&M: [id number] Initial observation care L3
[2020-05-09] MEDS: 0.9% Saline Lock 10 ML Syringe IV (06:51)
[2020-05-09 06:54] LABS: Absolute Lymphocyte Count 2.09 X10^3/uL (0.83-4.51); Absolute Neutrophil Count 6.4 X10^3/uL (2.0-7.7); Basophil# 0.09 X10^3/uL; Basophil% 0.9 % (0-1); Eosinophil# 0.32 X10^3/uL; Eosinophils% 3.1 % (0-5); Hematocrit 42.4 % (40-54); Lymphocyte # 2.09 X10^3/ul (4.0); Lymphocyte % 20.5 % (19-41); Mean Corpuscular Hgb 30.6 pg (27.0-32.0); Mean Corpuscular Volume 92.8 fL (80-94); Mean Platelet Vol. 9.9 fl (6.2-12.0); Monocyte# 1.19 X10^3/uL; Monocyte% 11.7 % (0-10); NRBC Flagged by Analyzer 0 % (0-5); Neutrophil # 6.42 X10^3/uL (2.7-7.7); Platelet Count 220 K/mm3 (150-450); RBC Distribution Width CV 12.8 % (11.6-14.6); RBC Distribution Width SD 43.6 fl (35.1-43.9); Red Blood Count 4.57 M/mm3 (4.6-6.2); White Blood Count 10.2 K/mm3 (4.4-11.0)
[2020-05-09 06:56] LABS: Anion Gap 1 (5-15); BUN 23 mg/dL (7-18); BUN/Creat Ratio 14.9 RATIO (10-20); Calcium,Total 8.9 mg/dL (8.5-10.1); Chloride 116 mmol/L (98-107); Creatinine, Serum 1.54 mg/dL (0.70-1.30); EST Glomerular Filtration Rate 47 mL/min (>60); Est Glom Filt Rate - Afr Amer 57 mL/min (>60); Glucose 95 mg/dL (74-106); Potassium 4.4 mmol/L (3.5-5.1); Sodium Level 143 mmol/L (136-145)
--- NOTE | 2020-05-09 07:55 | TELEMED_ITS ---
[facility] has confirmed receipt of a request for visit. This document confirms receipt of the order initiating the consult. To find the results of the consultation, please view the patient's reports for the scanned Telemed Consult.
[2020-05-09] MEDS: Clopidogrel Bisulfate 75 MG Tablet GT (11:07)
[2020-05-09] MEDS: Doxazosin 1 MG Tablet 2 MG PO (11:07)
[2020-05-09] MEDS: Ascorbic Acid 500 MG Tablet 1000 MG PO (11:07)
[2020-05-09] MEDS: Aspirin E.C. 81 MG Tablet PO (11:08)
[2020-05-09] MEDS: Galantamine Hydrobromide 4 MG Tablet PO ×2 (11:08→22:15)
[2020-05-09] MEDS: Docusate Sodium 100 MG Capsule PO ×2 (11:08→22:15)
[2020-05-09] MEDS: Acetaminophen 325 MG Tablet 650 MG PO (11:14)
[2020-05-09] MEDS: Ondansetron 8 MG Tablet PO (12:22)
[2020-05-09 12:34] LABS: Pathologist Review Reviewed
--- NOTE | 2020-05-09 12:35 | PN_ITS ---
<Tashia Farley - Last Filed: 05/09/20 12:53> Patient Problems: Active and Suspected Problems (Last Updated 05/09/20 @ 13:[address] Rigo Londono MD) Syncope (Acute) Subjective: Patient seen and examined. Confused this morning. Not able to tell me why he is here or events that brought him to the hospital. Nursing reports later that patient had episode of nausea and vomiting. Patient complains of chills. Denies fever. - Physical Exam Vitals/I&O's: Vital Signs Temp Pulse Resp BP Pulse Ox 99.5 F H 93 18 144/80 H 94 05/09/20 12:29 05/09/20 12:29 05/09/20 12:29 05/09/20 12:29 05/09/20 12:29 Oxygen Delivery Method Room Air Weight: 182 lb 5.156 oz Body Mass Index (BMI) 27.7 Orthostatic Vital Signs Start: 05/09/20 02:53 Freq: 0600 Status: Active Protocol: Activity Type Activity Date Activity User E-Sign Co-Sign Detail Recorded Client Recorded Date Recorded By Document 05/09/20 06:40 [facility] [id number] 05/09/20 06:46 CAROLIN 05/09/20 06:40 Orthostatic Vitals Standing -Blood Pressure (90/60-120/80) 141/72 H -Extremity Use Left Arm -Pulse Rate (60-100) 103 H Sitting -Blood Pressure (90/60-120/80) 139/85 H -Extremity Use Left Arm -Pulse Rate (60-100) 78 Lying -Blood Pressure (90/60-120/80) 149/82 H -Extremity Use Left Arm -Pulse Rate (60-100) 75 Intake and Output for Last 24 Hours 05/07/20 05/08/20 05/09/20 23:59 23:59 23:59 Intake Total 1500 / 1500 Output Total 1200 / 1200 Balance 1500 / 1500 -1200 / -1200 General: Alert, No apparent distress, Confused HEENT: Atraumatic, PERRLA, EOMI, Normocephalic Neck: Supple, No JVD, Negative Carotid Bruits Lungs: Clear to auscultation, Normal air movement Cardiovascular: Regular rate, No murmurs Abdomen: Bowel Sounds Present, Soft, Non Tender, Non-Distended Extremities: No edema, Capillary Refill Less than 3 Seconds Skin: No rashes, No breakdown Musculoskeletal: No Tenderness to Palpation of Joints or Extremities Neurological: Cranial nerves II-XII grossly intact, Neuro grossly intact Psych/Mental Status: Normal Affect, Appropriate Laboratory Results 05/08/20 17:00: WBC Cancelled, Corrected WBC Cancelled, RBC Cancelled, Hgb Cancelled, Hct Cancelled, MCV Cancelled, MCH Cancelled, MCHC Cancelled, RDW Std Deviation Cancelled, RDW Coeff of Mally Cancelled, Plt Count Cancelled, MPV Cancelled, Immature Gran % (Auto) Cancelled, Neut % (Auto) Cancelled, Lymph % (Auto) Cancelled, Bacon % (Auto) Cancelled, Eos % (Auto) Cancelled, Baso % (Auto) Cancelled, Absolute Neuts (auto) Cancelled, Absolute Lymphs (auto) Cancelled, Total Counted Cancelled, Neutrophils % (Manual) Cancelled, Band Neutrophils % Cancelled, Lymphocytes % (Manual) Cancelled, Monocytes % (Manual) Cancelled, Eosinophils % (Manual) Cancelled, Basophils % (Manual) Cancelled, Metamyelocytes % Cancelled, Myelocytes % Cancelled, Promyelocytes % Cancelled, Blast Cells % Cancelled, Plasma Cell % (Manual) Cancelled, Other Cells % Cancelled, Nucleated RBC % Cancelled, Nucleated RBCs/100 WBC Cancelled, Differential Comment Cancelled, Diff Path Review Cancelled, Hypersegmented Neuts Cancelled, Atypical Lymphocytes Cancelled, Reactive Lymphocytes Cancelled, Smudge Cells Cancelled, Toxic Granulation Cancelled, Toxic Vacuolation Cancelled, Dohle Bodies Cancelled, Bogdan Rods Cancelled, Platelet Estimate Cancelled, Plt Morphology Comment Cancelled, RBC Morphology Cancelled, Polychromasia Cancelled, Hypochromasia Cancelled, Poikilocytosis Cancelled, Basophilic Stippling Cancelled, Anisocytosis Cancelled, Microcytosis Cancelled, Macrocytosis Cancelled, Spherocytes Cancelled, Sickle Cells Cancelled, Target Cells Cancelled, Tear Drop Cells Cancelled, Ovalocytes Cancelled, Stomatocytes Cancelled, Finch-Redkey Bodies Cancelled, Negar Cells Cancelled, Bite Cells Cancelled, Crenated Cell Cancelled, Acanthocytes (Spur) Cancelled, Rouleaux Cancelled, Schistocytes Cancelled 05/08/20 17:00: Sodium 141, Potassium 4.3, Chloride 110 H, Carbon Dioxide 23.0, Anion Gap 8, BUN 28 H, Creatinine 1.81 H, Estim Creat Clear Calc 34.12, Est GFR (MDRD) Af Amer 47 L, Est GFR (MDRD) Non-Af 39 L, BUN/Creatinine Ratio 15.5, Glucose 99, Calcium 9.0, Troponin I < 0.015 05/08/20 17:00: Prolactin 18.3 05/08/20 18:20: Lactic Acid 3.6 H* 05/08/20 18:20: WBC 13.7 H, RBC 4.95, Hgb 15.5, Hct 48.8, MCV 98.6 H, MCH 31.3, MCHC 31.8 L, RDW Std Deviation 45.3 H, RDW Coeff of Mally 12.8, Plt Count TNP, MPV 11.1, Immature Gran % (Auto) 0.800, Neut % (Auto) 69.8, Lymph % (Auto) 14.4 L, Bacon % (Auto) 12.0 H, Eos % (Auto) 2.0, Baso % (Auto) 1.0, Absolute Neuts (auto) 9.5 H, Absolute Lymphs (auto) 1.97, Nucleated RBC % 0, Differential Comment SEE COMMENT, Diff Path Review Reviewed, Platelet Estimate SLT DEC, RBC Morphology N CHROM, Anisocytosis RARE, Macrocytosis RARE 05/08/20 20:45: Urine Color Straw, Urine Clarity Clear, Urine pH 7.0, Ur Specific [place] 1.010, Urine Protein Negative, Urine Glucose (UA) Normal, Urine Ketones Negative, Urine Occult Blood Negative, Urine Nitrite Negative, Urine Bilirubin Negative, Urine Urobilinogen Normal, Ur Leukocyte Esterase Negative, Urine RBC 0 SEEN, Urine WBC 0 SEEN, Ur Squamous Epith Cells 0 SEEN, Urine Bacteria 0 SEEN, Urine Mucus 0 SEEN 05/08/20 22:35: Lactic Acid Cancelled 05/09/20 01:20: Lactic Acid 1.3 05/09/20 06:20: WBC 10.2, RBC 4.57 L, Hgb 14.0, Hct 42.4, MCV 92.8 D, MCH 30.6, MCHC 33.0, RDW Std Deviation 43.6, RDW Coeff of Mally 12.8, Plt Count 220, MPV 9.9, Immature Gran % (Auto) 0.800, Neut % (Auto) 63.0, Lymph % (Auto) 20.5, Bacon % (Auto) 11.7 H, Eos % (Auto) 3.1, Baso % (Auto) 0.9, Absolute Neuts (auto) 6.4, Absolute Lymphs (auto) 2.09, Nucleated RBC % 0 05/09/20 06:20: Sodium 143, Potassium 4.4, Chloride 116 H, Carbon Dioxide 26.0, Anion Gap 1 L, BUN 23 H, Creatinine 1.54 H, Estim Creat Clear Calc 40.10, Est GFR (MDRD) Af Amer 57 L, Est GFR (MDRD) Non-Af 47 L, BUN/Creatinine Ratio 14.9, Glucose 95, Calcium 8.9 05/09/20 11:15: COVID-19 (DARSHAN) Pending Current Medications Acetaminophen (Tylenol) 650 mg PO Q6H PRN PRN PRN Reason: Pain Score 1-10/Temp > 100.7 F Last Admin: 05/09/20 11:14 Dose: 650 mg Documented by: Albuterol Sulfate (Ventolin Aerosols) 2.5 mg INHALATION Q2H PRN PRN PRN Reason: SOB/Wheezing Ascorbic Acid (Vitamin C) 1,000 mg PO DAILY [facility] [place] Last Admin: 05/09/20 11:07 Dose: 1,000 mg Documented by: Aspirin (Ecotrin) 81 mg PO QODAY [facility] Last Admin: 05/09/20 11:08 Dose: 81 mg Documented by: Atorvastatin Calcium (Lipitor) 20 mg PO QHS [facility] Cholecalciferol (Vitamin D (25mcg)) 2,000 unit PO DAILY [facility] Last Admin: 05/09/20 11:07 Dose: 2,000 unit Documented by: Clopidogrel Bisulfate (Plavix) 75 mg GT DAILY [facility] Last Admin: 05/09/20 11:07 Dose: 75 mg Documented by: Dextrose (D50w Syringe) 0 gm IV X1 PRN; Protocol PRN Reason: Hypoglycemia Docusate Sodium (Colace) 100 mg PO BID [facility] Last Admin: 05/09/20 11:08 Dose: 100 mg Documented by: Doxazosin Mesylate (Cardura) 2 mg PO DAILY [facility] Last Admin: 05/09/20 11:07 Dose: 2 mg Documented by: Galantamine Hydrobromide (Razadyne) 4 mg PO BID [facility] Last Admin: 05/09/20 11:08 Dose: 4 mg Documented by: Glucagon () 1 mg IM .X1 PRN PRN Reason: Hypoglycemia Sodium Chloride () 250 mls @ 15 mls/hr IV .[id number] PRN PRN Reason: Saline Flush Sodium Chloride () 250 mls @ 15 mls/hr IV .[id number] PRN PRN Reason: Additional IVPB Infusion Lorazepam (Ativan) 2 mg IV PRN PRN PRN Reason: SEIZURES Melatonin (Melatonin) 3 mg PO QHS PRN PRN PRN Reason: INSOMNIA Ondansetron HCl (Zofran) 8 mg PO Q8H PRN PRN PRN Reason: NAUSEA Last Admin: 05/09/20 12:22 Dose: 8 mg Documented by: Sodium Chloride () 10 - 40 ml IV UD PRN PRN Reason: SALINE FLUSH Last Admin: 05/09/20 06:51 Dose: 20 ml Documented by: Medical Necessity - Tobacco Use Smoking Status: Never smoker Assessment/Plan All Active Problems (Last Updated 05/09/20 @ 13:[address] Rigo Londono MD) Syncope (Acute) 1. Syncope versus seizure-brain CT with chronic changes. Orthostatic vitals negative. Troponin negative. Echocardiogram pending. EEG ordered. Low suspicion for seizure. Per patient and , patient has had some chills/shaking however no evidence of seizure activity or postictal state. If EEG is abnormal, will consult neurology. Otherwise work-up for syncope and rule out underlying infection. 2. Lactic bitrpird-tmz-atlji fever this morning. Repeat lactic acid normal. Suspect reactive. Urine and blood cultures pending. COVID pending. 3. Dementia-on galantamine. 4. History of CVA-continue aspirin, Plavix, statin. 5. Hypertension-stable, on Cardura. 6. Hyperlipidemia-continue statin. 7. BPH-on Cardura. 8. 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 9. History of aortic valve replacement 10. Chronic kidney disease stage III-at baseline, trend BMP. DVT prophylaxis-heparin subcu This patient was seen by NADEGE Padilla under the supervision of Dr. Londono. <Rigo Londono E - Last Filed: 05/09/20 13:39> - Physical Exam Vitals/I&O's: Vital Signs Temp Pulse Resp BP Pulse Ox 99.5 F H 93 18 144/80 H 94 05/09/20 12:29 05/09/20 12:29 05/09/20 12:29 05/09/20 12:29 05/09/20 12:29 Oxygen Delivery Method Room Air Weight: 182 lb 5.156 oz Body Mass Index (BMI) 27.7 Orthostatic Vital Signs Start: 05/09/20 02:53 Freq: 0600 Status: Active Protocol: Activity Type Activity Date Activity User E-Sign Co-Sign Detail Recorded Client Recorded Date Recorded By Document 05/09/20 06:40 CAROLIN [id number] 05/09/20 06:46 CAROLIN 05/09/20 06:40 Orthostatic Vitals Standing -Blood Pressure (90/60-120/80) 141/72 H -Extremity Use Left Arm -Pulse Rate (60-100) 103 H Sitting -Blood Pressure (90/60-120/80) 139/85 H -Extremity Use Left Arm -Pulse Rate (60-100) 78 Lying -Blood Pressure (90/60-120/80) 149/82 H -Extremity Use Left Arm -Pulse Rate (60-100) 75 Intake and Output for Last 24 Hours 05/07/20 05/08/20 05/09/20 23:59 23:59 23:59 Intake Total 1500 / 1500 Output Total 1200 / 1200 Balance 1500 / 1500 -1200 / -1200 Laboratory Results 05/08/20 17:00: WBC Cancelled, Corrected WBC Cancelled, RBC Cancelled, Hgb Cancelled, Hct Cancelled, MCV Cancelled, MCH Cancelled, MCHC Cancelled, RDW Std Deviation Cancelled, RDW Coeff of Mally Cancelled, Plt Count Cancelled, MPV Cancelled, Immature Gran % (Auto) Cancelled, Neut % (Auto) Cancelled, Lymph % (Auto) Cancelled, Bacon % (Auto) Cancelled, Eos % (Auto) Cancelled, Baso % (Auto) Cancelled, Absolute Neuts (auto) Cancelled, Absolute Lymphs (auto) Cancelled, Total Counted Cancelled, Neutrophils % (Manual) Cancelled, Band Neutrophils % Cancelled, Lymphocytes % (Manual) Cancelled, Monocytes % (Manual) Cancelled, Eosinophils % (Manual) Cancelled, Basophils % (Manual) Cancelled, Metamyelocytes % Cancelled, Myelocytes % Cancelled, Promyelocytes % Cancelled, Blast Cells % Cancelled, Plasma Cell % (Manual) Cancelled, Other Cells % Cancelled, Nucleated RBC % Cancelled, Nucleated RBCs/100 WBC Cancelled, Differential Comment Cancelled, Diff Path Review Cancelled, Hypersegmented Neuts Cancelled, Atypical Lymphocytes Cancelled, Reactive Lymphocytes Cancelled, Smudge Cells Cancelled, Toxic Granulation Cancelled, Toxic Vacuolation Cancelled, Dohle Bodies Cancelled, Bogdan Rods Cancelled, Platelet Estimate Cancelled, Plt Morphology Comment Cancelled, RBC Morphology Cancelled, Polychromasia Cancelled, Hypochromasia Cancelled, Poikilocytosis Cancelled, Basophilic Stippling Cancelled, Anisocytosis Cancelled, Microcytosis Cancelled, Macrocytosis Cancelled, Spherocytes Cancelled, Sickle Cells Cancelled, Target Cells Cancelled, Tear Drop Cells Cancelled, Ovalocytes Cancelled, Stomatocytes Cancelled, Finch-Redkey Bodies Cancelled, Negar Cells Cancelled, Bite Cells Cancelled, Crenated Cell Cancelled, Acanthocytes (Spur) Cancelled, Rouleaux Cancelled, Schistocytes Cancelled 05/08/20 17:00: Sodium 141, Potassium 4.3, Chloride 110 H, Carbon Dioxide 23.0, Anion Gap 8, BUN 28 H, Creatinine 1.81 H, Estim Creat Clear Calc 34.12, Est GFR (MDRD) Af Amer 47 L, Est GFR (MDRD) Non-Af 39 L, BUN/Creatinine Ratio 15.5, Glucose 99, Calcium 9.0, Troponin I < 0.015 05/08/20 17:00: Prolactin 18.3 05/08/20 18:20: Lactic Acid 3.6 H* 05/08/20 18:20: WBC 13.7 H, RBC 4.95, Hgb 15.5, Hct 48.8, MCV 98.6 H, MCH 31.3, MCHC 31.8 L, RDW Std Deviation 45.3 H, RDW Coeff of Mally 12.8, Plt Count TNP, MPV 11.1, Immature Gran % (Auto) 0.800, Neut % (Auto) 69.8, Lymph % (Auto) 14.4 L, Bacon % (Auto) 12.0 H, Eos % (Auto) 2.0, Baso % (Auto) 1.0, Absolute Neuts (auto) 9.5 H, Absolute Lymphs (auto) 1.97, Nucleated RBC % 0, Differential Comment SEE COMMENT, Diff Path Review Reviewed, Platelet Estimate SLT DEC, RBC Morphology N CHROM, Anisocytosis RARE, Macrocytosis RARE 05/08/20 20:45: Urine Color Straw, Urine Clarity Clear, Urine pH 7.0, Ur Specific [place] 1.010, Urine Protein Negative, Urine Glucose (UA) Normal, Urine Ketones Negative, Urine Occult Blood Negative, Urine Nitrite Negative, Urine Bilirubin Negative, Urine Urobilinogen Normal, Ur Leukocyte Esterase Negative, Urine RBC 0 SEEN, Urine WBC 0 SEEN, Ur Squamous Epith Cells 0 SEEN, Urine Bacteria 0 SEEN, Urine Mucus 0 SEEN 05/08/20 22:35: Lactic Acid Cancelled 05/09/20 01:20: Lactic Acid 1.3 05/09/20 06:20: WBC 10.2, RBC 4.57 L, Hgb 14.0, Hct 42.4, MCV 92.8 D, MCH 30.6, MCHC 33.0, RDW Std Deviation 43.6, RDW Coeff of Mally 12.8, Plt Count 220, MPV 9.9, Immature Gran % (Auto) 0.800, Neut % (Auto) 63.0, Lymph % (Auto) 20.5, Bacon % (Auto) 11.7 H, Eos % (Auto) 3.1, Baso % (Auto) 0.9, Absolute Neuts (auto) 6.4, Absolute Lymphs (auto) 2.09, Nucleated RBC % 0 05/09/20 06:20: Sodium 143, Potassium 4.4, Chloride 116 H, Carbon Dioxide 26.0, Anion Gap 1 L, BUN 23 H, Creatinine 1.54 H, Estim Creat Clear Calc 40.10, Est GFR (MDRD) Af Amer 57 L, Est GFR (MDRD) Non-Af 47 L, BUN/Creatinine Ratio 14.9, Glucose 95, Calcium 8.9 05/09/20 11:15: COVID-19 (DARSHAN) Pending Current Medications Acetaminophen (Tylenol) 650 mg PO Q6H PRN PRN PRN Reason: Pain Score 1-10/Temp > 100.7 F Last Admin: 05/09/20 11:14 Dose: 650 mg Documented by: Albuterol Sulfate (Ventolin Aerosols) 2.5 mg INHALATION Q2H PRN PRN PRN Reason: SOB/Wheezing Ascorbic Acid (Vitamin C) 1,000 mg PO DAILY [facility] [place] Last Admin: 05/09/20 11:07 Dose: 1,000 mg Documented by: Aspirin (Ecotrin) 81 mg PO QODAY [facility] Last Admin: 05/09/20 11:08 Dose: 81 mg Documented by: Atorvastatin Calcium (Lipitor) 20 mg PO QHS [facility] Cholecalciferol (Vitamin D (25mcg)) 2,000 unit PO DAILY [facility] Last Admin: 05/09/20 11:07 Dose: 2,000 unit Documented by: Clopidogrel Bisulfate (Plavix) 75 mg GT DAILY [facility] [place] Last Admin: 05/09/20 11:07 Dose: 75 mg Documented by: Dextrose (D50w Syringe) 0 gm IV X1 PRN; Protocol PRN Reason: Hypoglycemia Docusate Sodium (Colace) 100 mg PO BID [facility] [place] Last Admin: 05/09/20 11:08 Dose: 100 mg Documented by: Doxazosin Mesylate (Cardura) 2 mg PO DAILY [facility] [place] Last Admin: 05/09/20 11:07 Dose: 2 mg Documented by: Galantamine Hydrobromide (Razadyne) 4 mg PO BID [facility] Last Admin: 05/09/20 11:08 Dose: 4 mg Documented by: Glucagon () 1 mg IM .X1 PRN PRN Reason: Hypoglycemia Heparin Sodium (Porcine) (Heparin Na) 5,000 unit SC Q12 [facility] Sodium Chloride () 250 mls @ 15 mls/hr IV .[id number] PRN PRN Reason: Saline Flush Sodium Chloride () 250 mls @ 15 mls/hr IV .[id number] PRN PRN Reason: Additional IVPB Infusion Lorazepam (Ativan) 2 mg IV PRN PRN PRN Reason: SEIZURES Melatonin (Melatonin) 3 mg PO QHS PRN PRN PRN Reason: INSOMNIA Ondansetron HCl (Zofran) 8 mg PO Q8H PRN PRN PRN Reason: NAUSEA Last Admin: 05/09/20 12:22 Dose: 8 mg Documented by: Sodium Chloride () 10 - 40 ml IV UD PRN PRN Reason: SALINE FLUSH Last Admin: 05/09/20 06:51 Dose: 20 ml Documented by: Assessment/Plan Hospitalist note: I am seeing this patient in conjunction with Tashia Farley. I independently seen and examined the patient. Progress note above, laboratory data and imaging studies reviewed and I concur with above work-up and treatment plan. Patient was not able to provide any more detailed history. He did mention that he passed out but he is not sure what happened. He denies any preceding symptoms such as chest pain, shortness of breath, dizziness or lightheadedness. He is not sure how long he passed out. He complained of chills. He had no fever. He had an episode of nausea and vomiting this morning. - Physical Exam General: Alert, no distress, Cooperative, oriented x2. HEENT: Atraumatic, PERRLA, EOMI. Neck: Supple, No JVD, Negative Carotid Bruits, Trachea Midline, Thyroid Normal. Lungs: Clear to auscultation, Normal air movement, No rhonchi, No wheeze, No rales. Cardiovascular: Regular rate, Regular Rhythm, Normal S1, Normal S2, PMI Normal. Abdomen: Bowel Sounds Present, Soft, Non Tender, Non-Distended, No Hepato-sple nomegaly. Extremities: No clubbing, No cyanosis, No edema Skin: No rashes, No breakdown Neurological: Cranial nerves are intact, neuro grossly intact Vital Signs are stable. Assessment and plan: #1 reported syncope versus seizure: Unclear history, unclear etiology. CT scan brain showed no acute findings. EKG revealed normal sinus rhythm, no acute acute changes or cardiac arrhythmias. Routine blood work was remarkable for mild leukocytosis which is resolved. Also, BUN and creatinine are trending elevated, stable at baseline. Troponin was negative. Chest x-ray showed no acute findings. Patient has been afebrile, no neck stiffness. 2D echocardiogram ordered. EEG ordered as well. Plan: Stat blood culture, COVID- 19 PCR. #2 lactic acidosis: Without obvious source of infection although he had low- grade fever this morning. Patient received IV fluids and lactic acid is back to normal. Urine cultures pending. Blood cultures ordered. COVID-19 PCR is pending. #3 other chronic medical problems: Stable, continue current medications as above. This note was generated with AnyCloudation software. It may contain incorrect words, spelling, and punctuation that were not noted in checking the note before signing.
--- NOTE | 2020-05-09 14:30 | CASEMGMT ---
AHSAN WAHL ASSESSMENT Per notes, pt has dementia and oriented x 1 only. Pt also in precautions at this time, awaiting COVID-19 results. Call placed to pt's at this time. AHSAN WAHL initial assessment completed for planning/care coordination via phone conversation w/. PCP: Dr Lira Specialists: Dr Chou--cardiology, Dr Harrington--nephrology, Dr Oliveira--urology Preferred Pharmacy: [facility] Insurance: [facility], [employer] Prescription Benefit: Yes Living Will/HPOA: Has both LW and Healthcare POA, which is pt's . Both are on file @ [facility]. LNOK: Living Arrangements: Lives w/ in ranch-style home w/basement. 2 steps to enter through either the garage or front door. states pt needs assistance/cuing w/showering, shaving, and dressing. manages home tasks such as cooking, cleaning, laundry. takes pt with her when she goes shopping. She does not have anyone coming into the home to help at this time. Offered resources for Private-duty aides and pt accepted/voices appreciation. states family is supportive and granddaughter lives close. Transportation: . Denies transportation concerns. DME: Has: shower chair, comfort height toilet, cane, rails/grab bars. states no need for further DME at this time. HHC/SNF: Hx TCU and another SNF ( does not remember name at this time. No hx HHC does not know what assistance may be needed at discharge, as tests remain pending at this time and PT/OT evals pending. CM to follow for discharge planning/needs. Advised to ask for CM if any further questions/concerns/needs arise. She voices understanding. PLAN: Home w/. Berenice REES RN, CM
--- NOTE | 2020-05-09 15:59 | NURSING ---
inserted by Aniket Cunningham RN from franchise sales manager
--- NOTE | 2020-05-09 21:24 | NURSING ---
Attempt to obtain blood cultures x 1 without success. RN aware.
[2020-05-09] MEDS: Atorvastatin Calcium 20 MG Tablet PO (22:15)
[2020-05-09] MEDS: Heparin Injection (Vial) 5,000 UNIT/ML VIAL 5000 UNIT SC (22:15)
[2020-05-10] VITALS (10 sets, daily range): BP systolic 109–149; BP diastolic 66–87; PULSE 73–109; RESP 14–18; TEMP 36.7–37.4; O2SAT 93–97
[2020-05-10] MEDS: Acetaminophen 325 MG Tablet 650 MG PO ×2 (01:44→13:34)
[2020-05-10] MEDS: Ondansetron 8 MG Tablet PO (01:44)
[2020-05-10 05:50] LABS: Anion Gap 4 (5-15); BUN 35 mg/dL (7-18); BUN/Creat Ratio 18.3 RATIO (10-20); Calcium,Total 8.8 mg/dL (8.5-10.1); Chloride 117 mmol/L (98-107); Creatinine, Serum 1.91 mg/dL (0.70-1.30); EST Glomerular Filtration Rate 37 mL/min (>60); Est Glom Filt Rate - Afr Amer 44 mL/min (>60); Estimated Creatinine Clearance 32.33 ml/min; Glucose 109 mg/dL (74-106); Potassium 4.3 mmol/L (3.5-5.1); Sodium Level 142 mmol/L (136-145)
[2020-05-10] MEDS: Docusate Sodium 100 MG Capsule PO ×2 (10:15→22:42)
[2020-05-10] MEDS: Galantamine Hydrobromide 4 MG Tablet PO ×2 (10:15→22:42)
[2020-05-10] MEDS: Clopidogrel Bisulfate 75 MG Tablet GT (10:15)
[2020-05-10] MEDS: Ascorbic Acid 500 MG Tablet 1000 MG PO (10:15)
[2020-05-10] MEDS: Heparin Injection (Vial) 5,000 UNIT/ML VIAL 5000 UNIT SC ×2 (10:15→22:42)
--- NOTE | 2020-05-10 13:48 | PN_ITS ---
<Gurdeep Catalan - Last Filed: 05/10/20 13:48> Reason for Visit: seizure Subjective: Pt has no recollection of the events of why he is here. ROS is negative. No SANCHEZ/dizziness/LH/vertigo/speech change/hearing/vision changes/CP/Palp/Pressure/fever/chills Vitals/I&O's: Vital Signs Temp Pulse Resp BP Pulse Ox 98.8 F 89 16 149/87 H 95 05/10/20 10:10 05/10/20 10:10 05/10/20 10:10 05/10/20 10:10 05/10/20 10:10 Oxygen Delivery Method Room Air Weight: 182 lb 5.156 oz Body Mass Index (BMI) 27.7 Orthostatic Vital Signs Start: 05/09/20 02:53 Freq: 0600 Status: Active Protocol: Activity Type Activity Date Activity User E-Sign Co-Sign Detail Recorded Client Recorded Date Recorded By Document 05/10/20 06:00 PAL [id number] 05/10/20 06:32 PAL 05/10/20 06:00 Orthostatic Vitals Standing -Blood Pressure (90/60-120/80) 109/76 -Extremity Use Left Arm -Pulse Rate (60-100) 109 H Sitting -Blood Pressure (90/60-120/80) 125/81 H -Extremity Use Left Arm -Pulse Rate (60-100) 94 Lying -Blood Pressure (90/60-120/80) 135/77 H -Extremity Use Left Arm -Pulse Rate (60-100) 93 Intake and Output for Last 24 Hours 05/08/20 05/09/20 05/10/20 23:59 23:59 23:59 Intake Total 1500 / 1500 440 / 440 200 / 200 Output Total 1675 / 1675 200 / 200 Balance 1500 / 1500 -1235 / -1235 0 / 0 General: Alert, Oriented x3, Cooperative HEENT: Atraumatic, PERRLA, EOMI, Normocephalic Neck: Supple, No JVD, Negative Carotid Bruits Lungs: Clear to auscultation, Normal air movement Cardiovascular: Regular rate, No murmurs Abdomen: Bowel Sounds Present, Soft, Non Tender Extremities: No edema, Capillary Refill Less than 3 Seconds Skin: No rashes, No breakdown Musculoskeletal: No Tenderness to Palpation of Joints or Extremities Neurological: Cranial nerves II-XII grossly intact Psych/Mental Status: Normal Affect, Appropriate, Alert and oriented to time, place, person, mood and affect Microbiology Past 72 Hours 05/08/20 20:45 Urine, Clean Catch Urine Culture - Preliminary Culture exhibits no growth. Laboratory Results 05/09/20 11:15: COVID-19 ([facility]) Not Detected 05/10/20 05:24: Sodium 142, Potassium 4.3, Chloride 117 H, Carbon Dioxide 21.0, Anion Gap 4 L, BUN 35 H, Creatinine 1.91 H, Estim Creat Clear Calc 32.33, Est GFR (MDRD) Af Amer 44 L, Est GFR (MDRD) Non-Af 37 L, BUN/Creatinine Ratio 18.3, Glucose 109 H, Calcium 8.8 Current Medications Acetaminophen (Tylenol) 650 mg PO Q6H PRN PRN PRN Reason: Pain Score 1-10/Temp > 100.7 F Last Admin: 05/10/20 13:34 Dose: 650 mg Documented by: Albuterol Sulfate (Ventolin Aerosols) 2.5 mg INHALATION Q2H PRN PRN PRN Reason: SOB/Wheezing Ascorbic Acid (Vitamin C) 1,000 mg PO DAILY [facility] Last Admin: 05/10/20 10:15 Dose: 1,000 mg Documented by: Aspirin (Ecotrin) 81 mg PO QODAY [facility] Last Admin: 05/09/20 11:08 Dose: 81 mg Documented by: Atorvastatin Calcium (Lipitor) 20 mg PO QHS [facility] Last Admin: 05/09/20 22:15 Dose: 20 mg Documented by: Cholecalciferol (Vitamin D (25mcg)) 2,000 unit PO DAILY [facility] Last Admin: 05/10/20 10:15 Dose: 2,000 unit Documented by: Clopidogrel Bisulfate (Plavix) 75 mg GT DAILY [facility] Last Admin: 05/10/20 10:15 Dose: 75 mg Documented by: Dextrose (D50w Syringe) 0 gm IV X1 PRN; Protocol PRN Reason: Hypoglycemia Docusate Sodium (Colace) 100 mg PO BID [facility] Last Admin: 05/10/20 10:15 Dose: 100 mg Documented by: Galantamine Hydrobromide (Razadyne) 4 mg PO BID [facility] Last Admin: 05/10/20 10:15 Dose: 4 mg Documented by: Glucagon () 1 mg IM .X1 PRN PRN Reason: Hypoglycemia Heparin Sodium (Porcine) (Heparin Na) 5,000 unit SC Q12 [facility] Last Admin: 05/10/20 10:15 Dose: 5,000 unit Documented by: Sodium Chloride () 250 mls @ 15 mls/hr IV .[id number] PRN PRN Reason: Saline Flush Sodium Chloride () 250 mls @ 15 mls/hr IV .[id number] PRN PRN Reason: Additional IVPB Infusion Lorazepam (Ativan) 2 mg IV PRN PRN PRN Reason: SEIZURES Melatonin (Melatonin) 3 mg PO QHS PRN PRN PRN Reason: INSOMNIA Ondansetron HCl (Zofran) 8 mg PO Q8H PRN PRN PRN Reason: NAUSEA Last Admin: 05/10/20 01:44 Dose: 8 mg Documented by: Sodium Chloride () 10 - 40 ml IV UD PRN PRN Reason: SALINE FLUSH Last Admin: 05/09/20 06:51 Dose: 20 ml Documented by: Tamsulosin HCl (Flomax) 0.4 mg PO DAILY@1730 [facility] STROKE Vital Signs/Narrative: Vital Signs Temp Pulse Resp BP Pulse Ox 05/10/20 10:10 98.8 F 89 16 149/87 H 95 Medical Necessity - Tobacco Use Smoking Status: Never smoker Assessment/Plan 1. Seizure - EEG c/w seizure. Recently taken off depakote which he was on for anxiety/bipolar per . Neuro consult. Echo pending. CT brain shows stable chronic ischmic and atrophic changes. UA is negative. Covid Neg. 2. Orthostatic hypotension - stopped alpha clemente, started flomax. Also on galantamine which may cause this. Continue for now. 3. Dementia - galantamine. 4. Hx CVA - aspirin/plavix/statin 5. BPH - as above, off cardura start flomax. 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 CKDIII - stable DVT ppx: heparin DC planning: PTOT evals, Neuro consult This patient was seen by Gurdeep Catalan PA-C under the supervision of Doctor Bry. <Rigo Londono E - Last Filed: 05/10/20 14:14> Vitals/I&O's: Vital Signs Temp Pulse Resp BP Pulse Ox 98.8 F 89 16 149/87 H 95 05/10/20 10:10 05/10/20 10:10 05/10/20 10:10 05/10/20 10:10 05/10/20 10:10 Oxygen Delivery Method Room Air Weight: 182 lb 5.156 oz Body Mass Index (BMI) 27.7 Orthostatic Vital Signs Start: 05/09/20 02:53 Freq: 0600 Status: Active Protocol: Activity Type Activity Date Activity User E-Sign Co-Sign Detail Recorded Client Recorded Date Recorded By Document 05/10/20 06:00 PAL [id number] 05/10/20 06:32 PAL 05/10/20 06:00 Orthostatic Vitals Standing -Blood Pressure (90/60-120/80) 109/76 -Extremity Use Left Arm -Pulse Rate (60-100) 109 H Sitting -Blood Pressure (90/60-120/80) 125/81 H -Extremity Use Left Arm -Pulse Rate (60-100) 94 Lying -Blood Pressure (90/60-120/80) 135/77 H -Extremity Use Left Arm -Pulse Rate (60-100) 93 Intake and Output for Last 24 Hours 05/08/20 05/09/20 05/10/20 23:59 23:59 23:59 Intake Total 1500 / 1500 440 / 440 200 / 200 Output Total 1675 / 1675 200 / 200 Balance 1500 / 1500 -1235 / -1235 0 / 0 Microbiology Past 72 Hours 05/08/20 20:45 Urine, Clean Catch Urine Culture - Preliminary Culture exhibits no growth. Laboratory Results 05/09/20 11:15: COVID-19 ([facility]) Not Detected 05/10/20 05:24: Sodium 142, Potassium 4.3, Chloride 117 H, Carbon Dioxide 21.0, Anion Gap 4 L, BUN 35 H, Creatinine 1.91 H, Estim Creat Clear Calc 32.33, Est GFR (MDRD) Af Amer 44 L, Est GFR (MDRD) Non-Af 37 L, BUN/Creatinine Ratio 18.3, Glucose 109 H, Calcium 8.8 Current Medications Acetaminophen (Tylenol) 650 mg PO Q6H PRN PRN PRN Reason: Pain Score 1-10/Temp > 100.7 F Last Admin: 05/10/20 13:34 Dose: 650 mg Documented by: Albuterol Sulfate (Ventolin Aerosols) 2.5 mg INHALATION Q2H PRN PRN PRN Reason: SOB/Wheezing Ascorbic Acid (Vitamin C) 1,000 mg PO DAILY [facility] Last Admin: 05/10/20 10:15 Dose: 1,000 mg Documented by: Aspirin (Ecotrin) 81 mg PO QODAY [facility] Last Admin: 05/09/20 11:08 Dose: 81 mg Documented by: Atorvastatin Calcium (Lipitor) 20 mg PO QHS [facility] Last Admin: 05/09/20 22:15 Dose: 20 mg Documented by: Cholecalciferol (Vitamin D (25mcg)) 2,000 unit PO DAILY [facility] Last Admin: 05/10/20 10:15 Dose: 2,000 unit Documented by: Clopidogrel Bisulfate (Plavix) 75 mg GT DAILY [facility] Last Admin: 05/10/20 10:15 Dose: 75 mg Documented by: Dextrose (D50w Syringe) 0 gm IV X1 PRN; Protocol PRN Reason: Hypoglycemia Docusate Sodium (Colace) 100 mg PO BID [facility] Last Admin: 05/10/20 10:15 Dose: 100 mg Documented by: Galantamine Hydrobromide (Razadyne) 4 mg PO BID [facility] Last Admin: 05/10/20 10:15 Dose: 4 mg Documented by: Glucagon () 1 mg IM .X1 PRN PRN Reason: Hypoglycemia Heparin Sodium (Porcine) (Heparin Na) 5,000 unit SC Q12 [facility] Last Admin: 05/10/20 10:15 Dose: 5,000 unit Documented by: Sodium Chloride () 250 mls @ 15 mls/hr IV .[id number] PRN PRN Reason: Saline Flush Sodium Chloride () 250 mls @ 15 mls/hr IV .[id number] PRN PRN Reason: Additional IVPB Infusion Lorazepam (Ativan) 2 mg IV PRN PRN PRN Reason: SEIZURES Melatonin (Melatonin) 3 mg PO QHS PRN PRN PRN Reason: INSOMNIA Ondansetron HCl (Zofran) 8 mg PO Q8H PRN PRN PRN Reason: NAUSEA Last Admin: 05/10/20 01:44 Dose: 8 mg Documented by: Sodium Chloride () 10 - 40 ml IV UD PRN PRN Reason: SALINE FLUSH Last Admin: 05/09/20 06:51 Dose: 20 ml Documented by: Tamsulosin HCl (Flomax) 0.4 mg PO DAILY@1730 [facility] Assessment/Plan Hospitalist note: I am seeing this patient in conjunction with Gurdeep Catalan. I independently seen and examined the patient. Progress note above, laboratory data and imaging studies reviewed and I concur with above work-up and treatment plan. Today, patient denied any complaints. His vital signs are stable. 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 - Physical Exam General: Alert, no distress, Cooperative, oriented x2. HEENT: Atraumatic, PERRLA, EOMI. Neck: Supple, No JVD, Negative Carotid Bruits, Trachea Midline, Thyroid Normal. Lungs: Clear to auscultation, Normal air movement, No rhonchi, No wheeze, No rales. Cardiovascular: Regular rate, Regular Rhythm, Normal S1, Normal S2, PMI Normal. Abdomen: Bowel Sounds Present, Soft, Non Tender, Non-Distended, No Hepato- splenomegaly. Extremities: No clubbing, No cyanosis, No edema Skin: No rashes, No breakdown Neurological: Cranial nerves are intact, neuro grossly intact Vital Signs are stable. Assessment and plan: #1 Seizure: With abnormal EEG. EEG findings reviewed. Patient had no more symptoms since admission. CT scan brain showed no acute findings. EKG revealed normal sinus rhythm, no acute acute changes or cardiac arrhythmias. Routine blood work was remarkable for mild leukocytosis which is resolved. Troponin was negative. Chest x-ray showed no acute findings. Patient has been afebrile, no neck stiffness. 2D echocardiogram done and it is pending. COVID-19 PCR was negative. Patient has been afebrile. Plan: [facility] tele-neurology consult. #2 lactic acidosis: Lactic acid is back to normal. Likely reactive. COVID-19 PCR was negative. Urine culture was negative. Blood cultures pending. Patient has been afebrile, leukocytosis resolved. #3 other chronic medical problems: Stable, continue current medications as above. This note was generated with [employer] dictation software. It may contain incorrect words, spelling, and punctuation that were not noted in checking the note before signing. OBSV E&M: [id number] Subsequent observation care L2
--- NOTE | 2020-05-10 15:22 | CASEMGMT ---
Per RN CM patient's would like home health prison, PT, and OT. She has no preference for agency as long as the agency is not in [place] she has had a bad experience in the past. HUGO called [facility] and made referral. HUGO faxed referral to [phone]. Await response. Edwige LOPEZ NUCLEAR PLANT TECHNICAL ADVISOR
--- NOTE | 2020-05-10 16:05 | MRI_ITS ---
STUDY: MRA NECK WITHOUT CONTRAST REASON FOR EXAM: Male, 74 years old. STROKE, h/o venous thromboembolism, syncope, shaking spells, c/o headache since thursday TECHNIQUE: Source images were obtained, MIPs were performed. The study was performed unenhanced. COMPARISON: None. FINDINGS: RIGHT CAROTID ARTERIES: Normal right common carotid artery (CCA). Normal right common carotid bulb. Normal origin of the right internal carotid (ICA) artery without a hemodynamically significant stenosis. Normal visualized cervical portion of the right internal carotid artery. Normal origin of the right external carotid artery (ECA). LEFT CAROTID ARTERIES: Normal left common carotid artery (CCA). Normal left common carotid bulb. Normal origin of the left internal carotid (ICA) artery without a hemodynamically significant stenosis. Normal visualized cervical portion of the left internal carotid artery. Normal origin of the left external carotid artery (ECA). VERTEBRAL ARTERIES: The right vertebral is dominant and normal caliber. The left vertebral is hypoplastic and terminates in PICA consistent with normal variant.. MRI/MRA Neck without Contrast IMPRESSION: Normal bilateral cervical carotid and vertebral arteries. Electronically Signed: Anthony Boss MD at 19:26 EDT , Service support ,
--- NOTE | 2020-05-10 16:05 | MRI_ITS ---
STUDY: EXAMINATION - MRV BRAIN WITHOUT CONTRAST REASON FOR EXAM: Male, 74 years old. STROKE, h/o venous thromboembolism, syncope, shaking spells, c/o headache since thursday TECHNIQUE: 3D [id number]-rv-fccejg (TOF) imaging was performed in a benita MRI scanner. COMPARISON: None. FINDINGS: Normal flow within the superior sagittal sinus. Normal flow within the superficial cortical veins. Normal flow within the paired internal cerebral veins, vein of Rashid and straight sinus. Normal flow within the bilateral transverse and sigmoid sinuses. Normal flow within the bilateral jugular bulbs. MRI/MRV Head Without Contrast IMPRESSION: Normal unenhanced MRV of the brain. Electronically Signed: Anthony Boss MD at 19:24 EDT , Service support ,
--- NOTE | 2020-05-10 16:05 | MRI_ITS ---
STUDY: MRA OF THE HEAD WITHOUT CONTRAST REASON FOR EXAM: Male, 74 years old. STROKE, h/o venous thromboembolism, syncope, shaking spells, c/o headache since thursday TECHNIQUE: 3-D zfdi-lk-okfmnj (TOF) imaging was performed with MIPs. The study was performed unenhanced. COMPARISON: None. FINDINGS: Normal bilateral petrous carotid arteries. Normal right cavernous carotid artery with a normal supraclinoid bifurcation. Normal left cavernous carotid artery with a normal supraclinoid bifurcation. Normal right A1 segments of the anterior cerebral artery. Normal left A1 segments of the anterior cerebral artery. Normal intact anterior communicating artery (ACOM). Normal bilateral A2 segments of the anterior cerebral arteries. Normal right M1 and M2 segments of the middle cerebral arteries, with a normal M1 bifurcation. Normal left M1 and M2 segments of the middle cerebral arteries, with a normal M1 bifurcation. Normal right posterior communicating artery (PCOM). Left posterior communicating artery not visualized consistent with normal variant Right vertebral is dominant and normal caliber. Left vertebral is hypoplastic and terminates in PICA consistent with normal variant. Normal basilar artery with a normal basilar bifurcation. The visualized bilateral superior cerebellar (SCA) arteries are normal. Normal left posterior cerebral artery.. P1 segment of the right posterior cerebral is not visualized. The right posterior communicating artery supplies the territory of the P1 segment of the right posterior cerebral artery There is no demonstrated aneurysm of the [place]. There is no major vessel occlusion or hemodynamically significant stenosis. There is no demonstrated abnormality of the visualized brain. MRI/MRA Head ONLY without Contrast IMPRESSION: No evidence for significant atherosclerotic disease Electronically Signed: Anthony Boss MD at 19:23 EDT , Service support ,
--- NOTE | 2020-05-10 16:05 | MRI_ITS ---
STUDY: MRI BRAIN WITHOUT CONTRAST REASON FOR EXAM: Male, 74 years old. STROKE, h/o venous thromboembolism, syncope, shaking spells, c/o headache since thursday TECHNIQUE: Standardized multiplanar fat and water weighted pulse sequences were obtained. COMPARISON: CT of the brain 05-08-20 FINDINGS: Moderate atrophy and mild periventricular white matter ischemic changes without mass effect or restricted diffusion.. Normal bilateral basal ganglia. Normal thalami. There is no extra-axial fluid accumulation. Normal flow voids within the major intracranial circulation suggesting patency by spin echo criteria. Normal sella turcica, pituitary gland, infundibular stalk, optic chiasm and hypothalamus. Normal tectal plate and pineal gland. Normal midbrain, gris and medulla. Diffuse cerebellar atrophy.. Normal basal cisterns. Normal bilateral temporal bones. Normal bilateral internal auditory canals. Post surgical changes of the orbits.. Minor mucosal thickening of the ethmoid and sphenoid sinuses. Normal calvarium and skull base. Normal visualized soft tissue structures. Normal visualized upper cervical spine. MRI/Brain without Contrast IMPRESSION: Diffuse cerebral and cerebellar atrophy with mild periventricular white matter ischemic changes but no evidence for acute infarct.. Electronically Signed: Anthony Boss MD at 19:20 EDT , Service support ,
--- NOTE | 2020-05-10 16:12 | CASEMGMT ---
HUGO spoke with patient's . She was asking about assisted living so SW gave her the list of local assisted living facilities and which ones have memory care units. SW also told her we are working on setting up home health. HUGO explained that if patient is discharged we can follow up with her tomorrow and let her know which agency accepted. She said that will be fine. Plan: Home with home health. Awaiting acceptance from [place] and if they cannot accept will work on finding another agency. Patient does not have to remain in the hospital for home health to be arranged. Edwige LOPEZ MSW
[2020-05-10 17:25] LABS: Erythrocyte Sedimentation Rate 17 mm/hr (0-20)
[2020-05-10] MEDS: 0.9% Normal Saline 1,000 ML 75 ML IV (18:20)
[2020-05-10] MEDS: Atorvastatin Calcium 20 MG Tablet PO (22:42)
[2020-05-11] VITALS (7 sets, daily range): BP systolic 134–141; BP diastolic 74–98; PULSE 76–88; RESP 14–16; TEMP 37–37.3; O2SAT 92–97
[2020-05-11] MEDS: 0.9% Normal Saline 1,000 ML 75 ML IV (06:23)
[2020-05-11 06:40] LABS: Anion Gap 5 (5-15); BUN 33 mg/dL (7-18); BUN/Creat Ratio 19.4 RATIO (10-20); Chloride 116 mmol/L (98-107); EST Glomerular Filtration Rate 42 mL/min (>60); Est Glom Filt Rate - Afr Amer 51 mL/min (>60); Estimated Creatinine Clearance 36.32 ml/min; Glucose 110 mg/dL (74-106); Potassium 4.5 mmol/L (3.5-5.1); Sodium Level 145 mmol/L (136-145)
--- NOTE | 2020-05-11 07:32 | CASEMGMT ---
HUGO received a voice mail from [facility] and they can accept patient. HUGO will notify patient's . Plan: Home with [facility] assisted, PT, and OT Edwige LOPEZ MSW
[2020-05-11] MEDS: Ascorbic Acid 500 MG Tablet 1000 MG PO (09:35)
[2020-05-11] MEDS: Clopidogrel Bisulfate 75 MG Tablet GT (09:35)
[2020-05-11] MEDS: Docusate Sodium 100 MG Capsule PO (09:35)
[2020-05-11] MEDS: Aspirin E.C. 81 MG Tablet PO (09:35)
[2020-05-11] MEDS: Galantamine Hydrobromide 4 MG Tablet PO (09:35)
[2020-05-11] MEDS: Heparin Injection (Vial) 5,000 UNIT/ML VIAL 5000 UNIT SC (09:35)
[2020-05-11] MEDS: Finasteride 5 MG Tablet PO (09:38)
--- NOTE | 2020-05-11 10:14 | CASEMGMT ---
HUGO spoke with patient's and let her know [facility] is the home health agency that has accept patient. HUGO gave her the name and phone number on a piece of paper. HUGO told her that when patient is discharged they will call her and arrange a time to come out to the home. Edwige HARRINGTON
--- NOTE | 2020-05-11 11:44 | DCINST_ITS ---
You will use the following diet at home:: Cardiac Your food should be the consistency of: Regular Your liquids should be the consistency of: Regular/Thin Discharge Activity: May Not Drive Allergies/Adverse Reactions: Allergies penicillin V Allergy (Mild, Verified 05/08/20 16:15) hives codeine Adverse Reaction (Mild, Verified 05/08/20 16:15) upset stomach divalproex sodium [From Depakote] Adverse Reaction (Verified 05/08/20 16:15) Other Per family, pt became very comatose on medication haloperidol [From Haldol] Adverse Reaction (Verified 05/08/20 16:15) Other Per family, pt became very comatose on medication pecans Allergy (Mild, Uncoded 05/08/20 16:15) stomach cramps Medications to take at Discharge Clopidogrel Bisulfate [Plavix] 75 mg GT DAILY #30 tab 03/16/19 Ascorbic Acid [Vitamin C] 1,000 mg PO DAILY 05/08/20 Aspirin [Aspirin EC] 81 mg PO QODAY 05/08/20 Cholecalciferol (Vitamin D3) [Vitamin D3] 2,000 unit PO DAILY 05/08/20 Docusate Sodium [Colace] 100 mg PO BID 05/08/20 Galantamine HBr 4 mg PO BID 05/08/20 Pitavastatin Calcium [Livalo] 4 mg PO DAILY 05/08/20 Finasteride [Proscar] 5 mg PO DAILY #30 tab 05/11/20 The following prescriptions were given: Finasteride [Proscar] 5 mg PO DAILY #30 tab Transmission Status: Pending to [id number] Primary Care Physician: Carlos Lira Chi, MD [Primary Care Provider] - Please follow up with your Primary Care Physician in: 1 week Test Results: Test results from this visit will be discussed in further detail at your follow- up appointment, if applicable. Please Follow Up With: Gabriel Morocho MD When: 2 weeks Proposed Discharge Date: 05/11/20
--- NOTE | 2020-05-11 12:19 | DS.PCM_ITS ---
<Gurdeep Catalan - Last Filed: 05/11/20 12:19> Discharge Date and Diagnosis Date of Admission: 05/08/20 Date of Discharge: 05/11/20 - Primary Discharge Diagnosis Acute Problems: Seizure, new onset Orthostatic hypotension Dementia - Secondary Discharge Diagnosis Chronic Problems: Chronic Problems (Last Updated 05/09/20 @ 13:[address] 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 No acute intracranial abnormality. RAD/Chest 1 View (Portable) IMPRESSION: No acute thoracic pathology. Echo: Interpretation Summary The estimated ejection fraction is 60 %. Unable to assess diastolic dysfunction. The study was technically difficult. MRI/MRV Head Without Contrast IMPRESSION: Normal unenhanced MRV of the brain. MRI/Brain without Contrast IMPRESSION: Diffuse cerebral and cerebellar atrophy with mild periventricular white matter ischemic changes but no evidence for acute infarct.. MRI/MRA Head ONLY without Contrast IMPRESSION: No evidence for significant atherosclerotic disease MRI/MRA Neck without Contrast IMPRESSION: Normal bilateral cervical carotid and vertebral arteries. Consults: Neuro - SOC Operations: None Procedures: 2-D Echocardiogram, Electroencephalogram Summary of Care Provided: Hospital course: The patient is a 74 year old M with past medical history of prior CVA, dementia, CKD 3, who presented to the emergency room with complaints of syncopal episode. His noted that he was staring off, suddenly collapsed, had some shaking episode. He came to the emergency room and had a CT of the brain which showed a stable chronic ischemic and atrophic changes, negative EKG, lab work consistent with underlying CKD 3, no leukocytosis, negative chest x-ray. Lactic acid was elevated, prolactin negative, ESR negative, troponin negative. The patient had recently been taken off of Depakote which she was taking for bipolar disorder and anxiety disorder per the patients . The patient was admitted to the PCU on telemetry for syncope versus seizure. He had no events on telemetry. An EEG was obtained which did demonstrate seizure activity. Neurology was consulted. Neurology recommended no initiation of antiseizure medication at this time as this was his first episode and he had no residual symptoms. They did recommend outpatient follow-up with neuro, they recommended imaging including MRI of the brain with and without contrast, MRA of the head and neck, MRV of the brain. He refused IV contrast. There were no acute findings on these imaging studies. He had an echocardiogram as well with no ASD, EF 60%, PASP of 30 mmHg, bioprosthetic aortic valve. The patient did also have some orthostatic hypotension which was corrected with IV fluids. We also took him off of the alpha-clemente that he was taking for BPH as it has marked hypotension associated with it. He cannot take Flomax so Proscar was initiated instead which should have a lower incidence of orthostatic hypotension. He is also on galantamine which can cause orthostatic hypotension however we deferred further adjustment of this at this time and he may be transitioned to an alternative agent with his PCP. I recommended that he follow-up with his PCP in 1 week, and follow-up with neurology in 1 to 2 weeks. He was discharged home in stable condition with home health care. This patient was seen by Gurdeep Catalan PA-C under the supervision of Doctor Londono. [] - Physical Exam Vitals/I&O's: Vital Signs Temp Pulse Resp BP Pulse Ox 98.9 F 81 14 141/82 H 97 05/11/20 09:32 05/11/20 09:32 05/11/20 09:32 05/11/20 09:32 05/11/20 09:32 Oxygen Delivery Method Room Air Weight: 182 lb 5.156 oz Body Mass Index (BMI) 27.7 Orthostatic Vital Signs Start: 05/09/20 02:53 Freq: 1200 Status: Active Protocol: Activity Type Activity Date Activity User E-Sign Co-Sign Detail Recorded Client Recorded Date Recorded By Document 05/11/20 06:00 AE [id number] 05/11/20 06:16 AE 05/11/20 06:00 Orthostatic Vitals Sitting -Blood Pressure (90/60-120/80) 136/98 H -Extremity Use Left Arm -Pulse Rate (60-100) 88 Lying -Blood Pressure (90/60-120/80) 134/75 H -Extremity Use Left Arm -Pulse Rate (60-100) 80 Intake and Output for Last 24 Hours 05/09/20 05/10/20 05/11/20 23:59 23:59 23:59 Intake Total 440 / 440 723.75 / 723.75 1018.75 / 1018.75 Output Total 1675 / 1675 1375 / 1375 275 / 275 Balance -1235 / -1235 -651.25 / -651.25 743.75 / 743.75 General: Alert, Oriented x3, Cooperative HEENT: Atraumatic, PERRLA, EOMI, Normocephalic Neck: Supple, No JVD, Negative Carotid Bruits Lungs: Clear to auscultation, Normal air movement Cardiovascular: Regular rate, No murmurs Abdomen: Bowel Sounds Present, Soft, Non Tender Extremities: No edema, Capillary Refill Less than 3 Seconds Skin: No rashes, No breakdown Musculoskeletal: No Tenderness to Palpation of Joints or Extremities Neurological: Cranial nerves II-XII grossly intact Psych/Mental Status: Normal Affect, Appropriate, Alert and oriented to time, place, person, mood and affect Microbiology Past 72 Hours 05/08/20 20:45 Urine, Clean Catch Urine Culture - Final Culture exhibits no growth. Laboratory Results 05/10/20 05:24: ESR 17 05/11/20 05:42: Sodium 145, Potassium 4.5, Chloride 116 H, Carbon Dioxide 24.0, Anion Gap 5, BUN 33 H, Creatinine 1.70 H, Estim Creat Clear Calc 36.32, Est GFR (MDRD) Af Amer 51 L, Est GFR (MDRD) Non-Af 42 L, BUN/Creatinine Ratio 19.4, Glucose 110 H, Calcium 9.0 Current Medications Acetaminophen (Tylenol) 650 mg PO Q6H PRN PRN PRN Reason: Pain Score 1-10/Temp > 100.7 F Last Admin: 05/10/20 13:34 Dose: 650 mg Documented by: Albuterol Sulfate (Ventolin Aerosols) 2.5 mg INHALATION Q2H PRN PRN PRN Reason: SOB/Wheezing Ascorbic Acid (Vitamin C) 1,000 mg PO DAILY [facility] Last Admin: 05/11/20 09:35 Dose: 1,000 mg Documented by: Aspirin (Ecotrin) 81 mg PO QODAY [facility] Last Admin: 05/11/20 09:35 Dose: 81 mg Documented by: Atorvastatin Calcium (Lipitor) 20 mg PO QHS [facility] Last Admin: 05/10/20 22:42 Dose: 20 mg Documented by: Cholecalciferol (Vitamin D (25mcg)) 2,000 unit PO DAILY [facility] Last Admin: 05/11/20 09:35 Dose: 2,000 unit Documented by: Clopidogrel Bisulfate (Plavix) 75 mg GT DAILY [facility] Last Admin: 05/11/20 09:35 Dose: 75 mg Documented by: Dextrose (D50w Syringe) 0 gm IV X1 PRN; Protocol PRN Reason: Hypoglycemia Docusate Sodium (Colace) 100 mg PO BID [facility] Last Admin: 05/11/20 09:35 Dose: 100 mg Documented by: Finasteride (Proscar) 5 mg PO DAILY [facility] Last Admin: 05/11/20 09:38 Dose: 5 mg Documented by: Galantamine Hydrobromide (Razadyne) 4 mg PO BID [facility] Last Admin: 05/11/20 09:35 Dose: 4 mg Documented by: Glucagon () 1 mg IM .X1 PRN PRN Reason: Hypoglycemia Heparin Sodium (Porcine) (Heparin Na) 5,000 unit SC Q12 [facility] Last Admin: 05/11/20 09:35 Dose: 5,000 unit Documented by: Sodium Chloride () 250 mls @ 15 mls/hr IV .[id number] PRN PRN Reason: Saline Flush Sodium Chloride () 250 mls @ 15 mls/hr IV .[id number] PRN PRN Reason: Additional IVPB Infusion Sodium Chloride () 1,000 mls @ 75 mls/hr IV .[id number] [facility] Last Infusion: 05/11/20 11:58 Dose: Infused Documented by: Lorazepam (Ativan) 2 mg IV PRN PRN PRN Reason: SEIZURES Melatonin (Melatonin) 3 mg PO QHS PRN PRN PRN Reason: INSOMNIA Ondansetron HCl (Zofran) 8 mg PO Q8H PRN PRN PRN Reason: NAUSEA Last Admin: 05/10/20 01:44 Dose: 8 mg Documented by: Sodium Chloride () 10 - 40 ml IV UD PRN PRN Reason: SALINE FLUSH Last Admin: 05/09/20 06:51 Dose: 20 ml Documented by: Discharge Diet: Low fat/ Low Cholesterol, 2000 mg Sodium Diet Discharge Activity: May Not Drive Home Medications: Medications to take at Discharge Clopidogrel Bisulfate [Plavix] 75 mg GT DAILY #30 tab 03/16/19 Ascorbic Acid [Vitamin C] 1,000 mg PO DAILY 05/08/20 Aspirin [Aspirin EC] 81 mg PO QODAY 05/08/20 Cholecalciferol (Vitamin D3) [Vitamin D3] 2,000 unit PO DAILY 05/08/20 Docusate Sodium [Colace] 100 mg PO BID 05/08/20 Galantamine HBr 4 mg PO BID 05/08/20 Pitavastatin Calcium [Livalo] 4 mg PO DAILY 05/08/20 Finasteride [Proscar] 5 mg PO DAILY #30 tab 05/11/20 Following Prescrptions Were Given to Patient: Finasteride [Proscar] 5 mg PO DAILY #30 tab Transmission Status: Received by [facility] Primary Care Physician: Carlos Lira Chi, MD [Primary Care Provider] - Please follow up with your Primary Care Physician in: 1 week Please Follow Up With: Gabriel Morocho MD When: 2 weeks Please Follow Up With: Carlos Lira Chi, MD Disposition: Home with Home Health Minutes spent on discharge:: 35 Patient Condition:: Stable Medical Necessity - Tobacco Use Smoking Status: Never smoker Meaningful Use Info Meaningful Use Diagnoses (Choose all that apply): None applicable <Rigo Londono - Last Filed: 05/11/20 12:44> Discharge Date and Diagnosis - Secondary Discharge Diagnosis Chronic Problems: Chronic Problems (Last Updated 05/09/20 @ 13:[address] Rigo Londono MD) Non-rheumatic aortic stenosis (Chronic) Bilateral carotid artery stenosis (Chronic) stenting of left common carotid artery bifurcation 03/2019, stenting of right common carotid artery bifurcation 05/2018 CVA (cerebral vascular accident) (Chronic 03/2019) left hemispheric Essential (primary) hypertension (Chronic) Hyperlipidemia (Chronic) Hospital Course and Treatment Summary of Care Provided: Hospitalist note: Discharge summary above reviewed and I concur with above discharge treatment plan. Patient was admitted because of an episode of syncope versus seizure. He had extensive work-up done during this hospital stay. His EKG revealed normal sinus rhythm without evidence of acute ischemic changes or cardiac arrhythmias. Troponin was negative. His routine blood work was remarkable for mild leukocytosis which is attributed to stress and it is resolved. Code 19 PCR was done and it was negative. There was no evidence of infection. Chest x-ray showed no acute findings. CT scan brain showed no acute findings. 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 SOC tele-neurology consulted and recommended MRI brain, MRI head and neck which was performed and was unremarkable. 2D echocardiogram revealed ejection fractio n of 60%, no other significant findings. This episode of possible passing out and shakiness attributed to new onset seizure. Neurology recommended not to start patient on any anti-convulsive medications at this time. Patient did have episode of orthostatic hypotension and he was taken off Cardura and was started on finasteride. Patient discharged home in a stable medical condition, cardiac discontinued, started on Proscar, continued on his other previous medications, was not started on any antiseizure medications according to neurology recommendations, plan to follow-up with neurology in 1 to 2 weeks, recommended follow-up with PCP in 1 week. - Physical Exam General: Alert, no distress, Cooperative, oriented x2. HEENT: Atraumatic, PERRLA, EOMI. Neck: Supple, No JVD, Negative Carotid Bruits, Trachea Midline, Thyroid Normal. Lungs: Clear to auscultation, Normal air movement, No rhonchi, No wheeze, No rales. Cardiovascular: Regular rate, Regular Rhythm, Normal S1, Normal S2, PMI Normal. Abdomen: Bowel Sounds Present, Soft, Non Tender, Non-Distended, No Hepato- splenomegaly. Extremities: No clubbing, No cyanosis, No edema Skin: No rashes, No breakdown Neurological: Cranial nerves are intact, neuro grossly intact Vital Signs are stable. This note was generated with [employer] dictation software. It may contain incorrect words, spelling, and punctuation that were not noted in checking the note before signing. - Physical Exam Vitals/I&O's: Vital Signs Temp Pulse Resp BP Pulse Ox 98.9 F 81 14 141/82 H 97 05/11/20 09:32 05/11/20 09:32 05/11/20 09:32 05/11/20 09:32 05/11/20 09:32 Oxygen Delivery Method Room Air Weight: 182 lb 5.156 oz Body Mass Index (BMI) 27.7 Orthostatic Vital Signs Start: 05/09/20 02:53 Freq: 1200 Status: Active Protocol: Activity Type Activity Date Activity User E-Sign Co-Sign Detail Recorded Client Recorded Date Recorded By Document 05/11/20 06:00 AE [id number] 05/11/20 06:16 AE 05/11/20 06:00 Orthostatic Vitals Sitting -Blood Pressure (90/60-120/80) 136/98 H -Extremity Use Left Arm -Pulse Rate (60-100) 88 Lying -Blood Pressure (90/60-120/80) 134/75 H -Extremity Use Left Arm -Pulse Rate (60-100) 80 Intake and Output for Last 24 Hours 05/09/20 05/10/20 05/11/20 23:59 23:59 23:59 Intake Total 440 / 440 723.75 / 723.75 1018.75 / 1018.75 Output Total 1675 / 1675 1375 / 1375 275 / 275 Balance -1235 / -1235 -651.25 / -651.25 743.75 / 743.75 Microbiology Past 72 Hours 05/08/20 20:45 Urine, Clean Catch Urine Culture - Final Culture exhibits no growth. Laboratory Results 05/10/20 05:24: ESR 17 05/11/20 05:42: Sodium 145, Potassium 4.5, Chloride 116 H, Carbon Dioxide 24.0, Anion Gap 5, BUN 33 H, Creatinine 1.70 H, Estim Creat Clear Calc 36.32, Est GFR (MDRD) Af Amer 51 L, Est GFR (MDRD) Non-Af 42 L, BUN/Creatinine Ratio 19.4, Glucose 110 H, Calcium 9.0 Current Medications Acetaminophen (Tylenol) 650 mg PO Q6H PRN PRN PRN Reason: Pain Score 1-10/Temp > 100.7 F Last Admin: 05/10/20 13:34 Dose: 650 mg Documented by: Albuterol Sulfate (Ventolin Aerosols) 2.5 mg INHALATION Q2H PRN PRN PRN Reason: SOB/Wheezing Ascorbic Acid (Vitamin C) 1,000 mg PO DAILY [facility] Last Admin: 05/11/20 09:35 Dose: 1,000 mg Documented by: Aspirin (Ecotrin) 81 mg PO QODAY [facility] Last Admin: 05/11/20 09:35 Dose: 81 mg Documented by: Atorvastatin Calcium (Lipitor) 20 mg PO QHS [facility] Last Admin: 05/10/20 22:42 Dose: 20 mg Documented by: Cholecalciferol (Vitamin D (25mcg)) 2,000 unit PO DAILY [facility] Last Admin: 05/11/20 09:35 Dose: 2,000 unit Documented by: Clopidogrel Bisulfate (Plavix) 75 mg GT DAILY [facility] Last Admin: 05/11/20 09:35 Dose: 75 mg Documented by: Dextrose (D50w Syringe) 0 gm IV X1 PRN; Protocol PRN Reason: Hypoglycemia Docusate Sodium (Colace) 100 mg PO BID [facility] Last Admin: 05/11/20 09:35 Dose: 100 mg Documented by: Finasteride (Proscar) 5 mg PO DAILY [facility] Last Admin: 05/11/20 09:38 Dose: 5 mg Documented by: Galantamine Hydrobromide (Razadyne) 4 mg PO BID [facility] Last Admin: 05/11/20 09:35 Dose: 4 mg Documented by: Glucagon () 1 mg IM .X1 PRN PRN Reason: Hypoglycemia Heparin Sodium (Porcine) (Heparin Na) 5,000 unit SC Q12 [facility] Last Admin: 05/11/20 09:35 Dose: 5,000 unit Documented by: Sodium Chloride () 250 mls @ 15 mls/hr IV .[id number] PRN PRN Reason: Saline Flush Sodium Chloride () 250 mls @ 15 mls/hr IV .[id number] PRN PRN Reason: Additional IVPB Infusion Sodium Chloride () 1,000 mls @ 75 mls/hr IV .[id number] [facility] Last Infusion: 05/11/20 11:58 Dose: Infused Documented by: Lorazepam (Ativan) 2 mg IV PRN PRN PRN Reason: SEIZURES Melatonin (Melatonin) 3 mg PO QHS PRN PRN PRN Reason: INSOMNIA Ondansetron HCl (Zofran) 8 mg PO Q8H PRN PRN PRN Reason: NAUSEA Last Admin: 05/10/20 01:44 Dose: 8 mg Documented by: Sodium Chloride () 10 - 40 ml IV UD PRN PRN Reason: SALINE FLUSH Last Admin: 05/09/20 06:51 Dose: 20 ml Documented by: Disposition: Home with Home Health Minutes spent on discharge:: 28 Patient Condition:: Stable Meaningful Use Info Meaningful Use Diagnoses (Choose all that apply): None applicable OBSV E&M: 43206 Observation care discharge
--- NOTE | 2020-05-11 13:01 | CASEMGMT ---
HUGO called Bernice at [facility] and let her know patient is being discharged today. HUGO faxed d/c instructions to [facility]. She said they will be out to see patient tomorrow and they will call patient's to notify her of plan. Plan: d/c home with [facility], PT, and OT. Edwige LOPEZ IRR[employer]ATING PUMP OPERATOR
--- NOTE | 2020-05-14 14:31 | CASEMGMT ---
[facility] DC PHONE CALL DC DATE: 05/11/2020 DC DISPOSITION: Home with [facility] DC DIAGNOSIS: New onset Seizure LACE/STRATA: 07/21 F/U APPTS MADE PRIOR TO DC: no. Was attempted, but office not open. Call to [facility]. Start of care was on 05/12/2020. Sae REES RN ACM
== END 2020-05-11 13:25 | disposition home or self-care (01) | DRG 101 ==
LOC: ED 17:51 → PCU 05-09 01:54
PROVIDERS: Nurse Practitioner Family; Physician Assistant; Admitting Provider Hospitalist; Emergency Provider Emergency Medicine; PCP Family Medicine Geriatric Medicine; Visit Provider Hospitalist
DX: G40.909 Epilepsy, unspecified, not intractable, without status epilepticus (principal); E87.2 Acidosis; I95.1 Orthostatic hypotension; F03.90 Unspecified dementia, unspecified severity, without behavioral disturbance, psychotic disturbance, mood disturbance, and anxiety; T15.91XA Foreign body on external eye, part unspecified, right eye, initial encounter; Z86.718 Personal history of other venous thrombosis and embolism; I35.0 Nonrheumatic aortic (valve) stenosis; I65.23 Occlusion and stenosis of bilateral carotid arteries; Z86.73 Personal history of transient ischemic attack (TIA), and cerebral infarction without residual deficits; E78.5 Hyperlipidemia, unspecified; N40.0 Benign prostatic hyperplasia without lower urinary tract symptoms; F31.9 Bipolar disorder, unspecified; I12.9 Hypertensive chronic kidney disease with stage 1 through stage 4 chronic kidney disease, or unspecified chronic kidney disease; N18.3 Chronic kidney disease, stage 3 (moderate); K21.9 Gastro-esophageal reflux disease without esophagitis; Z86.711 Personal history of pulmonary embolism; Z87.19 Personal history of other diseases of the digestive system; Z95.828 Presence of other vascular implants and grafts; Z79.02 Long term (current) use of antithrombotics/antiplatelets; Z79.82 Long term (current) use of aspirin; Z79.899 Other long term (current) drug therapy; Z90.5 Acquired absence of kidney; Z95.2 Presence of prosthetic heart valve
CPT/HCPCS: 36415; 70450; 70544; 70547; 70551; 71045; 80048; 81001; 83605; 84146; 84484; 85025; 85652; 87040; 87086; 87635; 93005; 93306; 95819; 97116; 97162; 97166; 97530; 99285; G2023; J7030; Q9957; A4216; U0003

== ENCOUNTER → 2020-05-17 09:25 | Outpatient (CLI) | payer MEDICARE, OTHER, SELFPAY ==
[2020-05-17 09:06] VITALS: BMI 27.7
[2020-05-17 10:30] LABS: Magnesium 2.9 mg/dL (1.6-2.6)
== END ==
PROVIDERS: PCP Family Medicine Geriatric Medicine; Referring Provider Nurse Practitioner Family; Visit Provider Nurse Practitioner Family
DX: R56.9 Unspecified convulsions (principal)
CPT/HCPCS: 36415; 83735

== ENCOUNTER → 2020-06-04 06:11 | Outpatient (CLI) | payer MEDICARE, OTHER, SELFPAY ==
[2020-05-17 09:06] VITALS: BMI 27.7
[2020-06-04 07:52] LABS: Albumin, Serum 3.8 g/dL (3.2-5.0); BUN 26 mg/dL (7-18); BUN/Creat Ratio 15.8 RATIO (10-20); Calcium,Total 9.3 mg/dL (8.5-10.1); Chloride 112 mmol/L (98-107); Creatinine, Serum 1.65 mg/dL (0.70-1.30); EST Glomerular Filtration Rate 43 mL/min (>60); Est Glom Filt Rate - Afr Amer 52 mL/min (>60); Glucose 105 mg/dL (74-106); Phosphorus 3.8 mg/dL (2.5-4.9); Potassium 4.4 mmol/L (3.5-5.1); Sodium Level 141 mmol/L (136-145)
== END ==
PROVIDERS: PCP Family Medicine Geriatric Medicine; Referring Provider Internal Medicine Nephrology; Visit Provider Internal Medicine Nephrology
DX: N18.3 Chronic kidney disease, stage 3 (moderate) (principal); N17.9 Acute kidney failure, unspecified; E83.52 Hypercalcemia
CPT/HCPCS: 36415; 80069

== ENCOUNTER → 2020-06-29 06:37 | Outpatient (CLI) | payer MEDICARE, OTHER, SELFPAY ==
[2020-06-28 09:04] VITALS: BMI 27.7
[2020-06-29 07:50] LABS: Sodium Level 141 mmol/L (136-145)
[2020-07-02 12:11] LABS: Trileptal-Oxcarbazepine 5 ug/mL (10-35)
== END ==
PROVIDERS: PCP Family Medicine Geriatric Medicine; Referring Provider Psychiatry & Neurology Neurology; Visit Provider Psychiatry & Neurology Neurology
DX: G40.909 Epilepsy, unspecified, not intractable, without status epilepticus (principal)
CPT/HCPCS: 36415; 82542; 84295

== ENCOUNTER 2020-07-03 16:45 | Emergency (ER) | payer MEDICARE, OTHER, SELFPAY ==
[2020-06-28 09:04] VITALS: BMI 27.7
[2020-07-03 16:45] VITALS: BP 114/96; PULSE 93; RESP 18; TEMP 36.6; O2SAT 95; BMI 27.3
--- NOTE | 2020-07-03 16:59 | CT_ITS ---
STUDY: CT BRAIN WITHOUT CONTRAST REASON FOR EXAM: Male, 74 years old. Fall. Hit head on concrete. Multiple facial abrasions. Headache and neck pain. RADIATION DOSAGE (If Supplied By Facility): CTDIvol = ( 44.99 ) mGy, DLP = ( 796.11 ) mGycm TECHNIQUE: Transaxial CT imaging of the brain was performed without administration of intravenous contrast material. Individualized dose optimization techniques were used for this CT. COMPARISON: 05/08/2020. FINDINGS: Small subcutaneous hematoma and swelling over the right frontal area. Otherwise normal soft tissues. Normal calvarium. Normal size ventricles and extra-axial spaces for the patient''s age. Normal white matter tracts of the cerebral hemispheres. Normal basal ganglia and thalami. Normal brainstem. Normal cerebellum. There is no intracranial hemorrhage. There are no findings of an acute ischemic infarction. Normal visualized paranasal sinuses. CT/Brain/Head without Contrast IMPRESSION: 1. No acute intracranial or calvarial abnormality. There is no major interval change. 2. Small subcutaneous hematoma in the right frontal region. Electronically Signed: Sonu Mack DO at 17:45 EDT Tel [phone], Service support ,
--- NOTE | 2020-07-03 16:59 | CT_ITS ---
STUDY: CT CERVICAL SPINE WITHOUT CONTRAST REASON FOR EXAM: Male, 74 years old. Fall. Hit head on concrete. Neck pain. RADIATION DOSAGE (If Supplied By Facility): CTDIvol = ( 28.71 ) mGy, DLP = ( 611.25 ) mGycm TECHNIQUE: High resolution transaxial imaging was performed without contrast material. Sagittal and coronal images were reconstructed. Individualized dose optimization techniques were used for this CT. COMPARISON: None FINDINGS: Normal craniovertebral junction. There are degenerative changes of the anterior atlantoaxial articulation. Normal odontoid process. Normal cervical lordosis. Normal vertebral bodies and posterior osseous elements. C2-3: Normal endplates. Normal disc height and morphology. Facet joint degenerative change, right greater than left Normal central canal and intervertebral neuroforamina. C3-4: Endplate spondylosis with sclerosis and irregularity of the endplates. There is marked loss of disc height. Facet and uncovertebral joint degenerative change. Normal central canal. Narrowing of the bilateral intervertebral neuroforamina. C4-5: Normal endplates. Normal disc height and morphology. Facet and uncovertebral joint degenerative change, most marked on the right. Normal central canal and intervertebral neuroforamina. C5-6: Normal endplates. Normal disc height and morphology. Mild facet joint degenerative change. Normal central canal and intervertebral neuroforamina. C6-7: Normal endplates. Normal disc height and morphology. Facet joint degenerative change. Normal central canal and intervertebral neuroforamina. C7-T1: Normal endplates. Normal disc height and morphology. Facet joint degenerative change. Normal central canal and intervertebral neuroforamina. There are bilateral carotid stents. There appear to be central stenoses bilaterally. CT/Spine Cervical without Contras IMPRESSION: Degenerative changes of cervical spine without acute fracture or subluxation. Electronically Signed: Sonu Mack DO at 17:45 EDT Tel [phone], Service support ,
--- NOTE | 2020-07-03 17:08 | ED.DCSUM_ITS ---
- ER Visit Summary Date of Service: 07/03/20 Chief Complaint: Fall History of Present Illness: The patient is a 74 M who presents after a fall. He was on his porch when he tripped and fell. He fell into the brick part of his house. He fell up 2 steps. No LOC. Current complaints are of left shoulder and head pain. He also complained to his of some neck pain. He has a history of dementia and the provides most of the history. He is on BuSpar and Aricept and states that these medications make him dizzy but he was not dizzy during the fall today. He is on aspirin and Plavix for cardiac issues. Physical Examination: Vital signs reviewed. HEENT exam shows abrasions to the right forehead into the right eyelid. There are no lacerations. He has no nasal pain. There is no mouth trauma. Heart is regular rate and rhythm without murmurs. Lungs are clear to auscultation. Abdomen is soft and nontender. Extremities reveal no edema. His left shoulder is tender in the proximal humeral and clavicular area. He has painful range of motion of this joint. Elbow and wrist are nontender. Skin exam normal. Neurologic exam normal. His GCS is 15. Test Results: Shoulder x-ray shows a mild AC separation possibly with no other acute findings. CAT scan of the head and cervical spine revealed no acute findings except for a forehead hematoma Emergency Department Course and Treatment: Patient was given Tylenol for pain control. CAT scans and x-rays do not show any acute findings. I do not feel he actually has an AC separation as he has no tenderness around this area. Patient will be discharged to use Tylenol and ice for any pains at home. He will follow-up with his PCP Treatment Plan: [] Disposition: Discharge Impression: Forehead contusion This note was generated with [employer] dictation software. It may contain incorrect words, spelling, and punctuation that were not noted in review of the chart prior to signing ED Disposition - Plan for ED Patient: Disposition: Home or Assisted Living Instructions: ED Mechanical Fall Referrals: Carlos Lira Chi, MD [Primary Care Provider] -
--- NOTE | 2020-07-03 17:25 | RAD_ITS ---
STUDY: X-RAY - LEFT SHOULDER REASON FOR EXAM: Male, 74 years old. Fall. Anterior shoulder pain. TECHNIQUE: 4 view(s) of the shoulder. COMPARISON: Chest, 02/03/2019. FINDINGS: There is mild degenerative arthrosis of the glenohumeral articulation. There is mild widening of the acromioclavicular joint when compared to the previous study. Normal acromion. There is no acute fracture, dislocation or destructive osseous pathology. There is demineralization of the humerus and visualized osseous structures. Stable suture anchor in the humeral head. The soft tissue structures are unremarkable. Normal visualized pulmonary apex. RAD/Shoulder min 2 Views IMPRESSION: Question mild AC joint separation. The remainder of the findings are stable when compared with chest film of 02/03/2019. Electronically Signed: Sonu Mack DO at 17:58 EDT Tel [phone], Service support ,
[2020-07-03 18:43] VITALS: PULSE 74; RESP 16; O2SAT 97
[2020-07-03] MEDS: Acetaminophen 500 MG Tablet 1000 MG PO (18:43)
== END 2020-07-03 18:45 | disposition home or self-care (01) ==
PROVIDERS: Emergency Provider Emergency Medicine; PCP Family Medicine Geriatric Medicine
DX: S00.83XA Contusion of other part of head, initial encounter (principal); S43.102A Unspecified dislocation of left acromioclavicular joint, initial encounter; S00.81XA Abrasion of other part of head, initial encounter; R40.2410 Glasgow coma scale score 13-15, unspecified time; W01.0XXA Fall on same level from slipping, tripping and stumbling without subsequent striking against object, initial encounter; Y93.9 Activity, unspecified; Y92.9 Unspecified place or not applicable; I25.10 Atherosclerotic heart disease of native coronary artery without angina pectoris; F03.90 Unspecified dementia, unspecified severity, without behavioral disturbance, psychotic disturbance, mood disturbance, and anxiety; Z79.82 Long term (current) use of aspirin; Z79.02 Long term (current) use of antithrombotics/antiplatelets; Z79.899 Other long term (current) drug therapy
CPT/HCPCS: 70450; 72125; 73030; 99283

== ENCOUNTER → 2020-07-13 15:10 | Outpatient (CLI) | payer MEDICARE, OTHER, SELFPAY ==
[2020-07-03 16:45] VITALS: BMI 27.3
[2020-07-13 15:53] LABS: Anion Gap 4 (5-15); BUN 29 mg/dL (7-18); BUN/Creat Ratio 16.7 RATIO (10-20); Calcium,Total 9.1 mg/dL (8.5-10.1); Chloride 108 mmol/L (98-107); Creatinine, Serum 1.74 mg/dL (0.70-1.30); EST Glomerular Filtration Rate 41 mL/min (>60); Est Glom Filt Rate - Afr Amer 49 mL/min (>60); Glucose 97 mg/dL (74-106); Potassium 4.4 mmol/L (3.5-5.1); Sodium Level 138 mmol/L (136-145)
== END ==
PROVIDERS: PCP Family Medicine Geriatric Medicine; Referring Provider Nurse Practitioner Family; Visit Provider Nurse Practitioner Family
DX: G40.909 Epilepsy, unspecified, not intractable, without status epilepticus (principal)
CPT/HCPCS: 36415; 80048

== ENCOUNTER → 2020-07-31 12:04 | Outpatient (CLI) | payer MEDICARE, OTHER, SELFPAY ==
[2020-07-03 16:45] VITALS: BMI 27.3
[2020-07-31 14:56] LABS: Absolute Lymphocyte Count 2.27 X10^3/uL (0.83-4.51); Absolute Neutrophil Count 3.9 X10^3/uL (2.0-7.7); Basophil# 0.09 X10^3/uL; Basophil% 1.2 % (0-1); Eosinophil# 0.35 X10^3/uL; Eosinophils% 4.8 % (0-5); Hematocrit 43.5 % (40-54); Lymphocyte # 2.27 X10^3/ul (4.0); Lymphocyte % 31.1 % (19-41); Mean Corp Hgb Conc 32.2 g/dL (32-36); Mean Corpuscular Hgb 30.8 pg (27.0-32.0); Mean Corpuscular Volume 95.6 fL (80-94); Mean Platelet Vol. 10.3 fl (6.2-12.0); Monocyte# 0.69 X10^3/uL; Monocyte% 9.4 % (0-10); NRBC Flagged by Analyzer 0 % (0-5); Neutrophil # 3.85 X10^3/uL (2.7-7.7); Neutrophil % 52.7 % (47-70); Platelet Count 251 K/mm3 (150-450); RBC Distribution Width CV 13.2 % (11.6-14.6); RBC Distribution Width SD 46.3 fl (35.1-43.9); Red Blood Count 4.55 M/mm3 (4.6-6.2); White Blood Count 7.3 K/mm3 (4.4-11.0)
[2020-07-31 15:11] LABS: Vitamin D,25 Hydroxy 27.4 ng/mL
[2020-07-31 15:29] LABS: ALB/GLOB Ratio 0.9 RATIO (0.9-2.4); AST(SGOT) 33 U/L (15-37); Alanine Aminotransfer ALT/SGPT 36 U/L (16-61); Albumin, Serum 3.7 g/dL (3.2-5.0); Alkaline Phosphatase 85 U/L (45-117); Anion Gap 8 (5-15); BUN 25 mg/dL (7-18); BUN/Creat Ratio 14.7 RATIO (10-20); Calcium,Total 9.1 mg/dL (8.5-10.1); Chloride 109 mmol/L (98-107); EST Glomerular Filtration Rate 42 mL/min (>60); Est Glom Filt Rate - Afr Amer 51 mL/min (>60); Globulin 4.3 g/dL (2.2-4.2); Glucose 99 mg/dL (74-106); Potassium 4.1 mmol/L (3.5-5.1); Sodium Level 140 mmol/L (136-145); Thyroid Stim Hormone (TSH) 1.08 uIU/mL (0.358-3.74)
== END ==
PROVIDERS: PCP Family Medicine Geriatric Medicine; Visit Provider Family Medicine Geriatric Medicine
DX: E55.9 Vitamin D deficiency, unspecified (principal); R53.83 Other fatigue
CPT/HCPCS: 36415; 80053; 82306; 84443; 85025

== ENCOUNTER → 2020-09-06 16:31 | Outpatient (CLI) | payer MEDICARE, OTHER, SELFPAY ==
[2020-08-23 14:01] VITALS: BMI 27.9
[2020-09-06 16:39] LABS: Bacteria 0 SEEN /hpf (None Seen); Mucous, Urine 0 SEEN /hpf (<or=2+); Red Blood Cells-Urine 0 SEEN /hpf (0-5); Squamous Epithelial Cells - UA 0 SEEN /hpf (0-5); White Blood Cells 0 SEEN /hpf (0-5)
[2020-09-06 16:55] LABS: Hematocrit 42.9 % (40-54); Hemoglobin 13.8 g/dL (13.0-16.5); Mean Corp Hgb Conc 32.2 g/dL (32-36); Mean Corpuscular Hgb 30.8 pg (27.0-32.0); Mean Corpuscular Volume 95.8 fL (80-94); Mean Platelet Vol. 9.6 fl (6.2-12.0); Platelet Count 262 K/mm3 (150-450); RBC Distribution Width CV 12.9 % (11.6-14.6); RBC Distribution Width SD 45.4 fl (35.1-43.9); Red Blood Count 4.48 M/mm3 (4.6-6.2); White Blood Count 8.3 K/mm3 (4.4-11.0)
[2020-09-06 17:12] LABS: Color, Urine Yellow (Yellow); Glucose, Dipstick Normal (Normal); Ketone-Dipstick Negative (Negative); Leukocyte Esterase-Dipstick Negative /ul (Negative); Nitrite-Dipstick Negative (Negative); Occult Blood-Urine Negative /ul (Negative); Protein-Dipstick Negative (Negative); Urine Bilirubin Dipstick Negative (Negative); Urine Clarity Clear (Clear); Urine Urobilinogen Normal (Normal)
[2020-09-06 17:32] LABS: AST(SGOT) 27 U/L (15-37); Alanine Aminotransfer ALT/SGPT 32 U/L (16-61); Alkaline Phosphatase 92 U/L (45-117); Anion Gap 3 (5-15); BUN 27 mg/dL (7-18); BUN/Creat Ratio 14.1 RATIO (10-20); Calcium,Total 9.5 mg/dL (8.5-10.1); Chloride 110 mmol/L (98-107); Creatinine, Serum 1.92 mg/dL (0.70-1.30); EST Glomerular Filtration Rate 36 mL/min (>60); Est Glom Filt Rate - Afr Amer 44 mL/min (>60); Glucose 97 mg/dL (74-106); Potassium 4.2 mmol/L (3.5-5.1); Sodium Level 139 mmol/L (136-145)
== END ==
PROVIDERS: PCP Family Medicine Geriatric Medicine; Visit Provider Psychiatry & Neurology Neurology
DX: R41.0 Disorientation, unspecified (principal); F03.90 Unspecified dementia, unspecified severity, without behavioral disturbance, psychotic disturbance, mood disturbance, and anxiety
CPT/HCPCS: 36415; 80053; 81001; 85027; 87086

== ENCOUNTER 2020-09-15 11:44 | Inpatient (IN) | payer MEDICARE, OTHER, SELFPAY ==
[2020-09-15] VITALS (8 sets, daily range): BP systolic 117–167; BP diastolic 74–104; PULSE 75–122; RESP 17–18; TEMP 36.1–36.9; O2SAT 93–100; BMI 28.3; BMI 28.4
--- NOTE | 2020-09-15 12:06 | RAD_ITS ---
STUDY: X-RAY CHEST REASON FOR EXAM: Male, 75 years old. COUGH, PT UNABLE TO RESPOND. ALTERED MENTAL STATUS TECHNIQUE: AP COMPARISON: 05/08/2020 FINDINGS: EKG leads project over the chest. The lungs are clear but under expanded. There is no demonstrated pleural abnormality. Normal size heart. Sternal wires and mediastinal surgical clips compatible with prior CABG. Normal visualized pulmonary arteries. There is atherosclerotic tortuosity of the aortic arch and descending thoracic aorta. Normal visualized thoracic spine. Operative changes of the left humeral head. There is no demonstrated abnormality of the visualized soft tissue structures of the upper abdomen. RAD/Chest 1 View (Portable) IMPRESSION: Stable, nonacute portable x-ray examination of the chest. Electronically Signed: Wander Marie MD (Brooks) at 13:16 EST , Service support ,
--- NOTE | 2020-09-15 12:07 | ED.DCSUM_ITS ---
- ER Visit Summary Date of Service: 09/15/20 Chief Complaint: Irrational behavior History of Present Illness: The patient is a 75 M who presents with irrational behavior that was reported by his today. EMS was contacted and brought the patient to the emergency department for mental status change. Patient has a history of Alzheimer's dementia and is a very poor historian. Patient admits to a cough. Patient denies any fevers or chills. Patient denies any shortness of breath. Patient denies any chest pain. Physical Examination: Vital signs are stable. Patient is afebrile. Patient is in no acute distress. Oral mucosa is pink and moist. Neck is supple. Trachea is midline. There is no JVD noted. Heart was regular rate and rhythm. Lungs are clear and equal bilaterally. Abdomen is soft. Bowel sounds are normal. There is no tenderness. There is no rebound or guarding noted. Skin is warm dry. Cranial nerves II through XII are intact. There are no focal motor or sensory deficits noted. Extremities are intact. There is no calf tenderness or edema. Test Results: CT scan of the brain was obtained. There is no acute intracranial abnormality. This was interpreted by the radiologist and reviewed by myself. Portable 1 view chest x-ray was obtained. On my interpretation, lung fermin are clear. There is normal cardiac silhouette. Bony thorax is normal. There is no acute process noted. Radiologist also interpreted the x-ray and agrees. CBC shows a mild anemia with a hemoglobin of 12.6 and hematocrit of 38.7. Platelets were 141. Comprehensive metabolic profile showed a CO2 of 18 however this was drawn right after his seizure here in the emergency department and it is most likely low due to the seizure. BUN and creatinine were 29 and 1.88. These were consistent with prior results. Urinalysis does not show any evidence of urinary tract infection. Emergency Department Course and Treatment: Patient had a generalized tonic- clonic seizure here in the emergency department. This lasted approximately 2 minutes. Patient was given a dose of Ativan. Patient does take Trileptal but there is no report of any history of seizures in his chart. Family does not know why he takes the Trileptal. Patient will be treated as a new onset seizure. Case was discussed with the hospitalist. He will admit the patient to his service. Disposition: Admit to hospital Impression: 1. New onset seizure 2. Altered mental status This note was generated with [employer] dictation software. It may contain incorrect words, spelling, and punctuation that were not noted in review of the chart prior to signing ED Disposition - Plan for ED Patient: Disposition: Acute Care Hospital [facility] Diagnosis: New onset seizure, Altered mental status Referrals: Carlos Lira Chi, MD [Primary Care Provider] -
[2020-09-15] MEDS: LORazepam 2 MG/ML Syringe 1 MG IV (12:18)
--- NOTE | 2020-09-15 12:25 | NUR.TO.PHY ---
Pt had a full body seizure for 2min per alonso rebollar. jaw clutched.
[2020-09-15 12:54] LABS: Bacteria 0 SEEN /hpf (None Seen); Mucous, Urine 0 SEEN /hpf (<or=2+); Red Blood Cells-Urine 0 SEEN /hpf (0-5); Squamous Epithelial Cells - UA 0 SEEN /hpf (0-5); White Blood Cells 0 SEEN /hpf (0-5)
[2020-09-15 12:56] LABS: Color, Urine Yellow (Yellow); Glucose, Dipstick Normal (Normal); Ketone-Dipstick Negative (Negative); Leukocyte Esterase-Dipstick Negative /ul (Negative); Nitrite-Dipstick Negative (Negative); Occult Blood-Urine Negative /ul (Negative); Protein-Dipstick 15 mg/dl (Negative); Urine Bilirubin Dipstick Negative (Negative); Urine Clarity Sl. Cloudy (Clear); Urine Urobilinogen Normal (Normal)
--- NOTE | 2020-09-15 13:15 | CT_ITS ---
STUDY: CT BRAIN WITHOUT CONTRAST REASON FOR EXAM: Male, 75 years old. PATIENT CAME TO ER VERY CONFUSED WITH IRRATIONAL BEHAVIOR. HX OF SEIZURES AND DEMENTIA RADIATION DOSAGE (If Supplied By Facility): CTDIvol = ( 44.99 ) mGy, DLP = ( 796.11 ) mGycm TECHNIQUE: Transaxial CT imaging of the brain was performed without administration of intravenous contrast material. Individualized dose optimization techniques were used for this CT. COMPARISON: 07/03/2020 FINDINGS: Normal soft tissue structures. Normal calvarium. There is mild cerebral atrophy with widening of the extra-axial spaces and ventricular dilatation. Normal white matter tracts of the cerebral hemispheres. Normal basal ganglia and thalami. Normal brainstem. Normal cerebellum. There is no intracranial hemorrhage. There are no findings of an acute ischemic infarction. Normal visualized paranasal sinuses. CT/Brain/Head without Contrast IMPRESSION: 1. No acute intracranial hemorrhage or mass effect. Electronically Signed: Wander Marie MD (Brooks) at 13:30 EST , Service support ,
[2020-09-15 13:28] LABS: AST(SGOT) 45 U/L (15-37); Alanine Aminotransfer ALT/SGPT 33 U/L (16-61); Albumin, Serum 3.9 g/dL (3.2-5.0); Alkaline Phosphatase 88 U/L (45-117); Anion Gap 13 (5-15); BUN 29 mg/dL (7-18); BUN/Creat Ratio 15.4 RATIO (10-20); Calcium,Total 9.5 mg/dL (8.5-10.1); Chloride 108 mmol/L (98-107); Creatinine, Serum 1.88 mg/dL (0.70-1.30); EST Glomerular Filtration Rate 37 mL/min (>60); Est Glom Filt Rate - Afr Amer 45 mL/min (>60); Estimated Creatinine Clearance 33.43 ml/min; Globulin 4.1 g/dL (2.2-4.2); Glucose 93 mg/dL (74-106); Potassium 4.8 mmol/L (3.5-5.1); Sodium Level 139 mmol/L (136-145)
[2020-09-15 13:40] LABS: Absolute Lymphocyte Count 1.74 X10^3/uL (0.83-4.51); Absolute Neutrophil Count 6.6 X10^3/uL (2.0-7.7); Basophil# 0.12 X10^3/uL; Basophil% 1.2 % (0-1); Eosinophil# 0.33 X10^3/uL; Eosinophils% 3.2 % (0-5); Hematocrit 38.7 % (40-54); Hemoglobin 12.6 g/dL (13.0-16.5); Lymphocyte # 1.74 X10^3/ul (4.0); Lymphocyte % 16.7 % (19-41); Mean Corp Hgb Conc 32.6 g/dL (32-36); Mean Corpuscular Hgb 30.8 pg (27.0-32.0); Mean Corpuscular Volume 94.6 fL (80-94); Mean Platelet Vol. 10.8 fl (6.2-12.0); Monocyte# 1.25 X10^3/uL; NRBC Flagged by Analyzer 0 % (0-5); Neutrophil # 6.64 X10^3/uL (2.7-7.7); Neutrophil % 63.6 % (47-70); POSITIVE COUNT YES; Platelet Count 141 K/mm3 (150-450); RBC Distribution Width CV 12.7 % (11.6-14.6); RBC Distribution Width SD 43.9 fl (35.1-43.9); Red Blood Count 4.09 M/mm3 (4.6-6.2); White Blood Count 10.4 K/mm3 (4.4-11.0)
[2020-09-15 13:45] LABS: Differential Indicated SCAN CRITERIA MET
[2020-09-15 14:04] LABS: Differential Comment SCANNED
--- NOTE | 2020-09-15 14:32 | NURSING ---
SHELDON RUTLEDGE NEW ONSET SEIZURE
--- NOTE | 2020-09-15 14:48 | HP.PCM_ITS ---
Problem List (1) New onset seizure Status: Acute (2) Altered mental status Status: Acute (3) Non-rheumatic aortic stenosis Status: Chronic (4) Bilateral carotid artery stenosis Status: Chronic Comment: stenting of left common carotid artery bifurcation 03/2019, stenting of right common carotid artery bifurcation 05/2018 (5) CVA (cerebral vascular accident) Status: Chronic Qualifiers: Comment: left hemispheric (6) Essential (primary) hypertension Status: Chronic (7) Hyperlipidemia Status: Chronic Qualifiers: History of Present Illness Date of Admission: 09/15/20 Chief Complaint: change in mental status The patient is a 75 year old M who really was in his normal state of health and then started acting confused and was growling at home. Given change in mental status, patient was brought to the hospital. Patient was found to have a tonic- clonic seizure last about 2 minutes. I saw the patient afterwards and he has no recollection of any of the events. States that he currently feels fine and states that he has had a couple seizures previously. Patient was treated for partial seizures with Trileptal and was following with neurology. [] Past Medical History Past Medical History (Chronic Problems): Chronic Problems (Last Updated 09/15/20 @ 14:[address] Amanuel Ordoñez DO) Non-rheumatic aortic stenosis (Chronic) Bilateral carotid artery stenosis (Chronic) stenting of left common carotid artery bifurcation 03/2019, stenting of right common carotid artery bifurcation 05/2018 CVA (cerebral vascular accident) (Chronic 03/2019) left hemispheric Essential (primary) hypertension (Chronic) Hyperlipidemia (Chronic) Medical History: Medical History (Last Updated 09/15/20 @ 14:[address] 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 removed January 2019 Allergies penicillin V Allergy (Mild, Verified 09/15/20 11:47) hives codeine Adverse Reaction (Mild, Verified 09/15/20 11:47) upset stomach divalproex sodium [From Depakote] Adverse Reaction (Verified 09/15/20 11:47) Other Per family, pt became very comatose on medication haloperidol [From Haldol] Adverse Reaction (Verified 09/15/20 11:47) Other Per family, pt became very comatose on medication pecans Allergy (Mild, Uncoded 09/06/20 16:02) stomach cramps Home Medications: Ambulatory Orders Medication Instructions Recorded Ascorbic Acid [Vitamin C] 1,000 mg PO DAILY 05/08/20 Aspirin [Aspirin EC] 81 mg PO QODAY 05/08/20 Cholecalciferol (Vitamin D3) 2,000 unit PO DAILY 05/08/20 [Vitamin D3] Docusate Sodium [Colace] 100 mg PO BID 05/08/20 Pitavastatin Calcium [Livalo] 4 mg PO DAILY 05/08/20 Finasteride [Proscar] 5 mg PO DAILY #30 tab 05/11/20 doxycycline hyclate 100 mg capsule 100 mg PO DAILY 06/28/20 donepezil 10 mg tablet 10 mg PO QHS #30 tab 08/07/20 fluconazole 150 mg tablet 150 mg PO QWEEK tab 08/07/20 memantine 5 mg tablet 5 mg PO BID #60 tab 08/07/20 oxcarbazepine 150 mg tablet 150 mg PO BID #60 tab 08/07/20 clopidogrel 75 mg tablet 75 mg PO DAILY #90 tab 08/23/20 buspirone 10 mg tablet 10 mg PO BID #60 tab 09/06/20 doxepin 50 mg capsule 50 mg PO QHS #14 cap 09/12/20 trazodone 100 mg tablet 100 mg PO QHS #7 tab 09/12/20 Surgical History: Surgical History (Last Reviewed 09/15/20 @ 14:[address] 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 Psychiatric History: Bipolar Smoking Status: Unknown if ever smoked - *Family History Maternal Family History: Family History (Last Reviewed 09/15/20 @ 14:[address] Amanuel Orodñez DO) Brother Diabetes Mother Heart disease Sister Heart disease History Items: No pertinent history Paternal Family History: Family History (Last Reviewed 09/15/20 @ 14:[address] Amanuel Ordoñez DO) Brother Diabetes Mother Heart disease Sister Heart disease History Items: No pertinent history Review of Systems Constitutional: Denies: Anorexia, Chills, Fever, Night Sweats Eyes: Denies: Blurred vision, Double vision HEENT: Denies: Head Aches, Sinus Congestion, Sinus Drainage Cardiovascular: Denies: Chest Pain, Palpitations Respiratory: Denies: Cough, Shortness of breath at rest, Sputum production Gastrointestinal: Denies: Abdominal Pain, Nausea, Vomiting Genitourinary: Denies: Dysuria Musculoskeletal: Denies: Joint Pain, Joint Tenderness Skin: Denies: Rash, Wounds Neurological: Reports: Seizures. Denies: Focal weakness, Numbness, Tingling Comment: All review of systems were negative except as mentioned above in the history of present illness and the other review of systems. VTE Information - Inpt Only VTE Present on Admission: No VTE Mechan Device Prophylaxis: None VTE Pharm Prophylaxis ordered?: Yes Patient Problems: Active and Suspected Problems (Last Updated 09/15/20 @ 14:[address] Amanuel Ordoñez, DO) New onset seizure (Acute) Altered mental status (Acute) - Physical Exam Vitals/I&O's: Vital Signs Temp Pulse Resp BP Pulse Ox 36.6 C 99 18 153/90 H 97 09/15/20 14:47 09/15/20 14:47 09/15/20 14:47 09/15/20 14:47 09/15/20 14:47 Oxygen Delivery Method Room Air Weight: 87 kg Body Mass Index (BMI) 28.3 General: Alert, Oriented x3, Cooperative, No apparent distress HEENT: Atraumatic, PERRLA, Normocephalic, - - Left pupil reactive to light, right pupil surgical. Oral: Moist Mucosa, No Gingival or Mucosal Lesions/ Ulcerations Neck: No Nodes, Thyroid Normal Size and Texture Lungs: Clear to auscultation, Normal air movement, No rhonchi, No wheeze Cardiovascular: Regular rate, Regular Rhythm, Normal S1, Normal S2, No murmurs Abdomen: Bowel Sounds Present, Soft, Non Tender, Non-Distended, No Hepato- splenomegaly Extremities: No edema, No Calf Tenderness Skin: No rashes, No breakdown Musculoskeletal: No Tenderness to Palpation of Joints or Extremities, No Muscle Wasting Neurological: Cranial nerves II-XII grossly intact, Deep Tendon Reflexes 2+/4 and Symmetrical, Motor Exam 5/5 strength throughout Psych/Mental Status: Normal Affect, Appropriate Laboratory Results 09/15/20 12:48: Urine Color Yellow, Urine Clarity Sl. Cloudy, Urine pH 6.0, Ur Specific [place] 1.010, Urine Protein 15 H, Urine Glucose (UA) Normal, Urine Ketones Negative, Urine Occult Blood Negative, Urine Nitrite Negative, Urine Bilirubin Negative, Urine Urobilinogen Normal, Ur Leukocyte Esterase Negative, Urine RBC 0 SEEN, Urine WBC 0 SEEN, Ur Squamous Epith Cells 0 SEEN, Urine Bacteria 0 SEEN, Urine Mucus 0 SEEN 09/15/20 13:04: WBC Cancelled, Corrected WBC Cancelled, RBC Cancelled, Hgb Cancelled, Hct Cancelled, MCV Cancelled, MCH Cancelled, MCHC Cancelled, RDW Std Deviation Cancelled, RDW Coeff of Mally Cancelled, Plt Count Cancelled, MPV Cancelled, Immature Gran % (Auto) Cancelled, Neut % (Auto) Cancelled, Lymph % (Auto) Cancelled, Otero % (Auto) Cancelled, Eos % (Auto) Cancelled, Baso % (Auto) Cancelled, Absolute Neuts (auto) Cancelled, Absolute Lymphs (auto) Cancelled, Total Counted Cancelled, Neutrophils % (Manual) Cancelled, Band Neutrophils % Cancelled, Lymphocytes % (Manual) Cancelled, Monocytes % (Manual) Cancelled, Eosinophils % (Manual) Cancelled, Basophils % (Manual) Cancelled, Metamyelocytes % Cancelled, Myelocytes % Cancelled, Promyelocytes % Cancelled, Blast Cells % Cancelled, Plasma Cell % (Manual) Cancelled, Other Cells % Cancelled, Nucleated RBC % Cancelled, Nucleated RBCs/100 WBC Cancelled, Differential Comment Cancelled, Diff Path Review Cancelled, Hypersegmented Neuts Cancelled, Atypical Lymphocytes Cancelled, Reactive Lymphocytes Cancelled, Smudge Cells Cancelled, Toxic Granulation Cancelled, Toxic Vacuolation Cancelled, Dohle Bodies Cancelled, Bogdan Rods Cancelled, Platelet Estimate Cancelled, Plt Morphology Comment Cancelled, RBC Morphology Cancelled, Polychromasia Cancelled, Hypochromasia Cancelled, Poikilocytosis Cancelled, Basophilic Stippling Cancelled, Anisocytosis Cancelled, Microcytosis Cancelled, Macrocytosis Cancelled, Spherocytes Cancelled, Sickle Cells Cancelled, Target Cells Cancelled, Tear Drop Cells Cancelled, Ovalocytes Cancelled, Stomatocytes Cancelled, [place] Bodies Cancelled, [place] Cells Cancelled, Bite Cells Cancelled, Crenated Cell Cancelled, Acanthocytes (Spur) Cancelled, Rouleaux Cancelled, Schistocytes Cancelled 09/15/20 13:04: Sodium 139, Potassium 4.8, Chloride 108 H, Carbon Dioxide 18.0 L , Anion Gap 13, BUN 29 H, Creatinine 1.88 H, Estim Creat Clear Calc 33.43, Est GFR (MDRD) Af Amer 45 L, Est GFR (MDRD) Non-Af 37 L, BUN/Creatinine Ratio 15.4, Glucose 93, Calcium 9.5, Total Bilirubin 0.30, AST 45 H, ALT 33, Alkaline Phosph atase 88, Total Protein 8.0, Albumin 3.9, Globulin 4.1, Albumin/Globulin Ratio 1.0 09/15/20 13:39: WBC 10.4, RBC 4.09 L, Hgb 12.6 L, Hct 38.7 L, MCV 94.6 H, MCH 30.8, MCHC 32.6, RDW Std Deviation 43.9, RDW Coeff of Mally 12.7, Plt Count 141 L, MPV 10.8, Immature Gran % (Auto) 3.300 H, Neut % (Auto) 63.6, Lymph % (Auto) 16.7 L, Otero % (Auto) 12.0 H, Eos % (Auto) 3.2, Baso % (Auto) 1.2 H, Absolute Neuts (auto) 6.6, Absolute Lymphs (auto) 1.74, Nucleated RBC % 0, Differential Comment SCANNED Clinical Impression(s) from Imaging Studies Chest X-Ray 09/15/20 12:06 IMPRESSION: Stable, nonacute portable x-ray examination of the chest. Electronically Signed: Wander Marie MD (Brooks) at 13:16 EST , Service support , Brain CT 09/15/20 13:15 IMPRESSION: 1. No acute intracranial hemorrhage or mass effect. Electronically Signed: Wander Marie MD (Brooks) at 13:30 EST , Service support , Assessment/Plan All Active Problems (Last Updated 09/15/20 @ 14:[address] Amanuel Ordoñez DO) New onset seizure (Acute) Altered mental status (Acute) 1. Breakthrough seizure: * Patient was on Trileptal through neurology for his known history of seizures and had a tonic-clonic seizure in the emergency room. Patient had change in mental status at home but presumably, given the seizure, that this may be postictal. * Will hold off on the Trileptal and start the patient on levetiracetam. * Patient had an MRI of his brain back in December that showed a diffuse cerebral and cerebellar atrophy with mild periventricular white matter changes but no acute infarct. I do not feel it is necessary to do another MRI is given his cerebrovascular disease and atrophy likely culprit to his underlying seizure disorder. * Will have [facility] teleneurology evaluate the patient and make recommendations about further work-up for adjustments to medications. 2. Dementia: Concern for Alzheimer type * On donezepil as well as memantine 3. 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 Avoid nephrotoxic medications. 4. Peripheral arterial disease * History of carotid stents. Continue with clopidogrel and statin 5. VTE prophylaxis with enoxaparin 6. Advanced care planning: Discussed with the patient's . Patient is to be DNR Comfort Care arrest no intubation. Discussed with the patient's later and stated that he has not been sleeping well and has been confused over the past few days. Patient was noted to be growling in her face which is very abrupt change from his norm. I am concerned that this change in mental status may be related with some post ictal periods. His also states that told her that he cannot go home with her. This is before knowing that the patient is actually probably been having seizures. We will have physical and occupational therapy evaluate him to see if he has any skilled needs upon discharge. Inpatient E&M: [id number] Init Hosp L3
--- NOTE | 2020-09-15 14:49 | ED.RN ---
THIS NURSE SPOKE WITH THE PT . PT DOES HAVE A HISTORY OF SEIZURES. HIS FIRST ONE WAS IN [facility]. BELIEVES THAT HE MAY HAVE HAD A SEIZURE THIS AM. SAID THAT SHE SPOKE WITH DR WANG ON THE PHONE TODAY AND IT IS NOT SAFE FOR THE PT TO GO BACK HOME. IS OPEN TO DISCUSSING ECF PLACEMENT. DR VALVERDE NOTIFIED OF THE SAME
[2020-09-15] MEDS: 0.9% Normal Saline 1,000 ML 150 ML IV (16:01)
[2020-09-15] MEDS: OXcarbazepine 300 MG Tablet PO (20:23)
--- NOTE | 2020-09-15 20:44 | CT_ITS ---
STUDY: CT BRAIN WITHOUT CONTRAST REASON FOR EXAM: Male, 75 years old. UNWITNESSED Fall, pt WAS FOUND SITTING ON THE Floor, confusion -- HX:CVA,HTN,CKD WITH DONATED RT KIDNEY,DEMENTIA,SEIZURES RADIATION DOSAGE (If Supplied By Facility): CTDIvol = ( 44.99 ) mGy, DLP = ( 829.85 ) mGycm TECHNIQUE: Transaxial CT imaging of the brain was performed without administration of intravenous contrast material. Individualized dose optimization techniques were used for this CT. COMPARISON: July 03, 2020 CT scan head, FINDINGS: There is a small focus of posterior parietal superficial soft tissue edema. There is no visualized underlying fracture. Normal calvarium. There is moderate cerebral atrophy with widening of the extra-axial spaces and ventricular dilatation. There are areas of decreased attenuation within the white matter tracts of the supratentorial brain, consistent with microvascular disease changes. Normal basal ganglia and thalami. Normal brainstem. There is mild cerebellar atrophy. There is no intracranial hemorrhage. There are no findings of an acute ischemic infarction. Normal visualized paranasal sinuses. CT/Brain/Head without Contrast IMPRESSION: Atrophy no evidence of acute hemorrhage infarct or edema. Posterior parietal superficial soft tissue edema. Electronically Signed: Macy Marinelli MD at 0:27 EST Tel , Service support ,
[2020-09-15] MEDS: busPIRone 5 MG Tablet 10 MG PO (20:59)
[2020-09-15] MEDS: traZODone 100 MG Tablet PO (21:00)
[2020-09-15] MEDS: Atorvastatin Calcium 20 MG Tablet PO (21:00)
[2020-09-15] MEDS: Memantine Hydrochloride 5 MG Tablet PO (21:00)
[2020-09-15] MEDS: Donepezil HCl 10 MG Tablet PO (21:00)
[2020-09-15] MEDS: Docusate Sodium 100 MG Capsule PO (21:00)
[2020-09-16] VITALS (9 sets, daily range): BP systolic 113–150; BP diastolic 68–97; PULSE 63–102; RESP 16–18; TEMP 36.5–37.3; O2SAT 95–100
[2020-09-16] MEDS: Clopidogrel Bisulfate 75 MG Tablet PO (08:11)
[2020-09-16] MEDS: Memantine Hydrochloride 5 MG Tablet PO ×2 (08:12→21:03)
[2020-09-16] MEDS: busPIRone 5 MG Tablet 10 MG PO ×2 (08:12→21:03)
[2020-09-16] MEDS: Ascorbic Acid 500 MG Tablet 1000 MG PO (08:12)
[2020-09-16] MEDS: Finasteride 5 MG Tablet PO (08:14)
[2020-09-16] MEDS: Docusate Sodium 100 MG Capsule PO ×2 (08:14→21:03)
[2020-09-16] MEDS: Enoxaparin 40 MG/0.4 ML Syringe SC (08:15)
[2020-09-16] MEDS: Doxycycline 100 MG CAPSULE PO (09:55)
[2020-09-16] MEDS: OXcarbazepine 300 MG Tablet PO ×2 (09:55→21:03)
--- NOTE | 2020-09-16 13:41 | PN_ITS ---
Patient Problems: Active and Suspected Problems (Last Updated 09/15/20 @ 14:[address] Amanuel Ordoñez, DO) New onset seizure (Acute) Altered mental status (Acute) Reason for Visit: seizure Subjective: agitated. no further seizures. Vitals/I&O's: Vital Signs Temp Pulse Resp BP Pulse Ox 36.9 C 100 16 139/90 H 99 09/16/20 09:55 09/16/20 09:55 09/16/20 09:55 09/16/20 09:55 09/16/20 09:55 Oxygen Delivery Method Room Air Weight: 84.6 kg Body Mass Index (BMI) 28.3 Intake and Output for Last 24 Hours 09/14/20 09/15/20 09/16/20 23:59 23:59 23:59 Intake Total 1320 / 1320 1100 / 1100 Output Total 400 / 400 Balance 1320 / 1320 700 / 700 General: Confused, - - oriented to self and place HEENT: Atraumatic, PERRLA, Normocephalic, - - left pupil reactive, surgical right pupil unreactive to light Lungs: Clear to auscultation, Normal air movement, No rhonchi, No wheeze, No rales Cardiovascular: Regular rate, Regular Rhythm, Normal S1, Normal S2, No murmurs Abdomen: Bowel Sounds Present, Soft, Non Tender, Non-Distended, No Hepato- splenomegaly Extremities: No edema, No Calf Tenderness Microbiology Past 72 Hours 09/15/20 18:45 Mucosa - Nose SARS-CoV-2 Antigen (Rapid) - Final Laboratory Results 09/15/20 13:39: WBC 10.4, RBC 4.09 L, Hgb 12.6 L, Hct 38.7 L, MCV 94.6 H, MCH 30.8, MCHC 32.6, RDW Std Deviation 43.9, RDW Coeff of Mally 12.7, Plt Count 141 L, MPV 10.8, Immature Gran % (Auto) 3.300 H, Neut % (Auto) 63.6, Lymph % (Auto) 16.7 L, [place] % (Auto) 12.0 H, Eos % (Auto) 3.2, Baso % (Auto) 1.2 H, Absolute Neuts (auto) 6.6, Absolute Lymphs (auto) 1.74, Nucleated RBC % 0, Differential Comment SCANNED Current Medications Acetaminophen (Acetaminophen 325 Mg Tablet) 650 mg PO Q6H PRN PRN PRN Reason: Pain Score 1-10/Temp > 100.7 F Ascorbic Acid (Ascorbic Acid 500 Mg Tablet) 1,000 mg PO DAILY [facility] Last Admin: 09/16/20 08:12 Dose: 1,000 mg Documented by: Aspirin (Aspirin E.C. 81 Mg Tablet) 81 mg PO QODAY [facility] Atorvastatin Calcium (Atorvastatin Calcium 20 Mg Tablet) 20 mg PO QHS [facility] Last Admin: 09/15/20 21:00 Dose: 20 mg Documented by: Buspirone HCl (Buspirone 5 Mg Tablet) 10 mg PO BID [facility] Last Admin: 09/16/20 08:12 Dose: 10 mg Documented by: Cholecalciferol (Cholecalciferol (Vit D3) 1,000 Unit (25mcg)) 2,000 unit PO DAILY [facility] Last Admin: 09/16/20 08:11 Dose: 2,000 unit Documented by: Clopidogrel Bisulfate (Clopidogrel Bisulfate 75 Mg Tablet) 75 mg PO DAILY [facility] Last Admin: 09/16/20 08:11 Dose: 75 mg Documented by: Docusate Sodium (Docusate Sodium 100 Mg Capsule) 100 mg PO BID [facility] Last Admin: 09/16/20 08:14 Dose: 100 mg Documented by: Donepezil HCl (Donepezil Hcl 10 Mg Tablet) 10 mg PO QHS [facility] Last Admin: 09/15/20 21:00 Dose: 10 mg Documented by: Doxycycline Monohydrate (Doxycycline 100 Mg Capsule) 100 mg PO DAILY [facility] Last Admin: 09/16/20 09:55 Dose: 100 mg Documented by: Enoxaparin Sodium (Enoxaparin 40 Mg/0.4 Ml Syringe) 40 mg SC DAILY [facility] Last Admin: 09/16/20 08:15 Dose: 40 mg Documented by: Finasteride (Finasteride 5 Mg Tablet) 5 mg PO DAILY [facility] Last Admin: 09/16/20 08:14 Dose: 5 mg Documented by: Lorazepam (Lorazepam 2 Mg/Ml Syringe) 2 mg IV Q4H PRN PRN PRN Reason: seiuzre Memantine (Memantine Hydrochloride 5 Mg Tablet) 5 mg PO BID [facility] Last Admin: 09/16/20 08:12 Dose: 5 mg Documented by: Oxcarbazepine (Oxcarbazepine 300 Mg Tablet) 300 mg PO BID [facility] Last Admin: 09/16/20 09:55 Dose: 300 mg Documented by: Sodium Chloride (0.9% Saline Lock 10 Ml Syringe) 10 - 40 ml IV UD PRN PRN Reason: SALINE FLUSH Trazodone HCl (Trazodone 100 Mg Tablet) 100 mg PO QHS [facility] Last Admin: 09/15/20 21:00 Dose: 100 mg Documented by: STROKE Vital Signs/Narrative: Vital Signs Temp Pulse Resp BP Pulse Ox 09/16/20 09:55 36.9 C 100 16 139/90 H 99 Medical Necessity - Tobacco Use Smoking Status: Former smoker Tobacco Use: Cigarettes Assessment/Plan All Active Problems (Last Updated 09/15/20 @ 14:[address] Amanuel Ordoñez, DO) New onset seizure (Acute) Altered mental status (Acute) 1. Breakthrough seizure: * Patient was on Trileptal through neurology for his known history of seizures and had a tonic-clonic seizure in the emergency room. Patient had change in mental status at home but presumably, given the seizure, that this may be postictal. * Patient had an MRI of his brain back in December that showed a diffuse cerebral and cerebellar atrophy with mild periventricular white matter changes but no acute infarct. I do not feel it is necessary to do another MRI is given his cerebrovascular disease and atrophy likely culprit to his underlying seizure disorder. * [facility] teleneurology who advised increasing the Trileptal to 300 BID (from 150) and check an EEG. * EEG performed, results pending * follow up with neurology 2. Dementia: Concern for Alzheimer type * On donezepil as well as memantine * follow up with neurology 3. 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 Avoid nephrotoxic medications. 4. Peripheral arterial disease * History of carotid stents. Continue with clopidogrel and statin 5. VTE prophylaxis with enoxaparin 6. Advanced care planning: Discussed with the patient's . Patient is to be DNR Comfort Care arrest no intubation. 7. Disposition: PT recommends additional therapy. CM to facilitate SNF v C. Inpatient E&M: 72600 Subs Hosp L2
[2020-09-16] MEDS: Donepezil HCl 10 MG Tablet PO (21:03)
[2020-09-16] MEDS: Atorvastatin Calcium 20 MG Tablet PO (21:03)
[2020-09-16] MEDS: traZODone 100 MG Tablet PO (21:04)
[2020-09-17] VITALS (11 sets, daily range): BP systolic 108–120; BP diastolic 72–77; PULSE 75–97; RESP 16–18; TEMP 36.5–36.8; O2SAT 93–96
--- NOTE | 2020-09-17 08:23 | PCM.PN.HOSP ---
Patient Problems: Active and Suspected Problems (Last Updated 09/15/20 @ 14:[address] Amanuel Ordoñez, DO) New onset seizure (Acute) Altered mental status (Acute) Reason for Visit: Follow-up for altered mental status. Patient has history of seizure disorder Objective: I think patient has baseline dementia. Repetitive behavior and decreased in comprehension. Plan for modified barium swallow Heart rate and blood pressure is good. Patient 94% on room air Physical exam General: Alert, Oriented x3, Cooperative HEENT: Atraumatic, PERRLA, EOMI, Normocephalic Oral: No Gingival or Mucosal Lesions/ Ulcerations Neck: Supple, No JVD, Negative Carotid Bruits Lungs: Air entry diminished in bilateral lung bases. No crepitation/rhonchi Cardiovascular: Regular rate, Regular Rhythm, Normal S1, Normal S2, No murmurs Abdomen: Bowel Sounds Present, Soft, Non Tender, Non-Distended : No renal angle tenderness. No suprapubic tenderness. Extremities: No edema, Capillary Refill Less than 3 Seconds. Mild atrophy of extremity muscles. Skin: No rashes, No breakdown Musculoskeletal: No Tenderness to Palpation of Joints or Extremities Neurological: Cranial nerves II-XII grossly intact, Deep Tendon Reflexes 2+/4 and Symmetrical, Neuro grossly intact Psych/Mental Status: Normal Affect, Appropriate. Vitals/I&O's: Vital Signs Temp Pulse Resp BP Pulse Ox 98.3 F 85 18 114/72 93 09/17/20 02:12 09/17/20 03:03 09/17/20 02:12 09/17/20 02:12 09/17/20 02:12 Oxygen Delivery Method Room Air Weight: 186 lb 8.177 oz Body Mass Index (BMI) 28.3 Intake and Output for Last 24 Hours 09/15/20 09/16/20 09/17/20 23:59 23:59 23:59 Intake Total 1320 / 1320 1340 / 1340 Output Total 400 / 400 Balance 1320 / 1320 940 / 940 Microbiology Past 72 Hours 09/15/20 18:45 Mucosa - Nose SARS-CoV-2 Antigen (Rapid) - Final Current Medications Acetaminophen (Acetaminophen 325 Mg Tablet) 650 mg PO Q6H PRN PRN PRN Reason: Pain Score 1-10/Temp > 100.7 F Ascorbic Acid (Ascorbic Acid 500 Mg Tablet) 1,000 mg PO DAILY [facility] Last Admin: 09/16/20 08:12 Dose: 1,000 mg Documented by: Aspirin (Aspirin E.C. 81 Mg Tablet) 81 mg PO QODAY [facility] Atorvastatin Calcium (Atorvastatin Calcium 20 Mg Tablet) 20 mg PO QHS [facility] Last Admin: 09/16/20 21:03 Dose: 20 mg Documented by: Buspirone HCl (Buspirone 5 Mg Tablet) 10 mg PO BID [facility] Last Admin: 09/16/20 21:03 Dose: 10 mg Documented by: Cholecalciferol (Cholecalciferol (Vit D3) 1,000 Unit (25mcg)) 2,000 unit PO DAILY [facility] Last Admin: 09/16/20 08:11 Dose: 2,000 unit Documented by: Clopidogrel Bisulfate (Clopidogrel Bisulfate 75 Mg Tablet) 75 mg PO DAILY [facility] Last Admin: 09/16/20 08:11 Dose: 75 mg Documented by: Docusate Sodium (Docusate Sodium 100 Mg Capsule) 100 mg PO BID [facility] Last Admin: 09/16/20 21:03 Dose: 100 mg Documented by: Donepezil HCl (Donepezil Hcl 10 Mg Tablet) 10 mg PO QHS [facility] Last Admin: 09/16/20 21:03 Dose: 10 mg Documented by: Doxycycline Monohydrate (Doxycycline 100 Mg Capsule) 100 mg PO DAILY [facility] Last Admin: 09/16/20 09:55 Dose: 100 mg Documented by: Enoxaparin Sodium (Enoxaparin 40 Mg/0.4 Ml Syringe) 40 mg SC DAILY [facility] Last Admin: 09/16/20 08:15 Dose: 40 mg Documented by: Finasteride (Finasteride 5 Mg Tablet) 5 mg PO DAILY [facility] Last Admin: 09/16/20 08:14 Dose: 5 mg Documented by: Lorazepam (Lorazepam 2 Mg/Ml Syringe) 2 mg IV Q4H PRN PRN PRN Reason: seiuzre Memantine (Memantine Hydrochloride 5 Mg Tablet) 5 mg PO BID [facility] Last Admin: 09/16/20 21:03 Dose: 5 mg Documented by: Oxcarbazepine (Oxcarbazepine 300 Mg Tablet) 300 mg PO BID [facility] Last Admin: 09/16/20 21:03 Dose: 300 mg Documented by: Sodium Chloride (0.9% Saline Lock 10 Ml Syringe) 10 - 40 ml IV UD PRN PRN Reason: SALINE FLUSH Trazodone HCl (Trazodone 100 Mg Tablet) 100 mg PO QHS [facility] Last Admin: 09/16/20 21:04 Dose: 100 mg Documented by: Medical Necessity - Tobacco Use Smoking Status: Former smoker Tobacco Use: Cigarettes Assessment/Plan All Active Problems (Last Updated 09/15/20 @ 14:[address] Amanuel Ordoñez, DO) New onset seizure (Acute) Altered mental status (Acute) Patient is 75-year-old male admitted with change in mental status. As per H&P he was in normal state of health and then was confused and was growling at home. Patient also found to have tonic-clonic seizures for about 2 minutes. 1. Breakthrough seizure with history of seizure: His change in mental status was presumed to be postictal. MRI of his brain in December 2019 showed a diffuse cerebral and cerebellar atrophy with mild periventricular white matter changes but no acute infarct. Patient had a [facility] neurology consult who increase Trileptal dose to 300 mg twice daily from 150 mg twice daily. EEG showed diffuse mild encephalopathy. No epileptiform discharges, seizure patterns or lateralizing signs. Patient is scheduled for modified barium swallow. 2. Dementia: Concern for Alzheimer type On donezepil as well as memantine. Follow-up with neurology as an outpatient. 3. 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 Avoid nephrotoxic medications. Last BUN/creatinine 29/1.88 on 09/15 with expected of single kidney. Repeat kidney function tomorrow a.m. 4. Peripheral arterial disease History of carotid stents. Continue with clopidogrel and statin 5. VTE prophylaxis with enoxaparin 6. Advanced care planning: DNR Comfort Care arrest no intubation. 7. Disposition: PT recommends additional therapy. discussed with casework manager and social work therapist. Inpatient E&M: 66512 Subs Hosp L2
[2020-09-17] MEDS: Enoxaparin 40 MG/0.4 ML Syringe SC (09:13)
[2020-09-17] MEDS: Ascorbic Acid 500 MG Tablet 1000 MG PO (09:13)
[2020-09-17] MEDS: OXcarbazepine 300 MG Tablet PO (09:13)
[2020-09-17] MEDS: Finasteride 5 MG Tablet PO (09:13)
[2020-09-17] MEDS: busPIRone 5 MG Tablet 10 MG PO (09:14)
[2020-09-17] MEDS: Doxycycline 100 MG CAPSULE PO (09:14)
[2020-09-17] MEDS: Aspirin E.C. 81 MG Tablet PO (09:14)
[2020-09-17] MEDS: Docusate Sodium 100 MG Capsule PO (09:14)
[2020-09-17] MEDS: Clopidogrel Bisulfate 75 MG Tablet PO (09:14)
--- NOTE | 2020-09-17 10:38 | NURSING ---
Jeanie pulled from patient's room at 1025.
--- NOTE | 2020-09-17 12:09 | CASEMGMT ---
HUGO called patient's to discuss d/c plan. She said she has looked at the nursing homes online and she would like [facility]. HUGO asked her about a 2nd choice and she said [facility]. HUGO told her he will have to be without a sitter for 24 hours in order for a a longterm to take him. HUGO told her the sitter was removed today at 1025a so we will see how he does. HUGO told her SW will work on referral and let her know when HUGO hears anything. HUGO faxed referral to [facility] [place]. Await response. Edwige LOPEZ MSW
--- NOTE | 2020-09-17 15:14 | CASEMGMT ---
HUGO spoke with Laura at [facility] [place]. They are still reviewing referral. They would like to see how he does overnight without a sitter. They are also making sure they have a bed available. HUGO will talk with her tomorrow. Edwige LOPEZ MSW
--- NOTE | 2020-09-17 15:15 | NURSING ---
This RN taking over care of pt at this time. Report received from Praveena FOREMAN.
[2020-09-18 02:40] VITALS: BP 111/91; PULSE 91; RESP 16; TEMP 36.7; O2SAT 95
[2020-09-18 03:59] VITALS: PULSE 88
[2020-09-18 06:45] VITALS: PULSE 93
[2020-09-18 07:02] LABS: Absolute Lymphocyte Count 2.15 X10^3/uL (0.83-4.51); Absolute Neutrophil Count 6.1 X10^3/uL (2.0-7.7); Eosinophil# 0.33 X10^3/uL; Eosinophils% 3.4 % (0-5); Hematocrit 41.7 % (40-54); Hemoglobin 13.5 g/dL (13.0-16.5); Lymphocyte # 2.15 X10^3/ul (4.0); Lymphocyte % 22.4 % (19-41); Mean Corp Hgb Conc 32.4 g/dL (32-36); Mean Corpuscular Hgb 31.3 pg (27.0-32.0); Mean Corpuscular Volume 96.8 fL (80-94); Mean Platelet Vol. 9.6 fl (6.2-12.0); Monocyte# 0.92 X10^3/uL; Monocyte% 9.6 % (0-10); NRBC Flagged by Analyzer 0 % (0-5); Neutrophil # 6.05 X10^3/uL (2.7-7.7); Platelet Count 280 K/mm3 (150-450); RBC Distribution Width SD 46.3 fl (35.1-43.9); Red Blood Count 4.31 M/mm3 (4.6-6.2); White Blood Count 9.6 K/mm3 (4.4-11.0)
[2020-09-18 07:36] LABS: Anion Gap 7 (5-15); BUN 29 mg/dL (7-18); BUN/Creat Ratio 16.5 RATIO (10-20); Calcium,Total 9.2 mg/dL (8.5-10.1); Chloride 114 mmol/L (98-107); Creatinine, Serum 1.76 mg/dL (0.70-1.30); EST Glomerular Filtration Rate 40 mL/min (>60); Est Glom Filt Rate - Afr Amer 49 mL/min (>60); Estimated Creatinine Clearance 34.55 ml/min; Glucose 100 mg/dL (74-106); Potassium 4.1 mmol/L (3.5-5.1); Sodium Level 143 mmol/L (136-145)
[2020-09-18 08:30] VITALS: BP 107/68; PULSE 84; RESP 16; TEMP 36.9; O2SAT 94
[2020-09-18] MEDS: Enoxaparin 40 MG/0.4 ML Syringe SC (08:31)
--- NOTE | 2020-09-18 11:00 | CASEMGMT ---
HUGO called Laura with [facility] [place]. SW let her know patient is still sitter free. She said they can take him depending on when he is ready for discharge. She said they have 1 bed open and they need to keep it open in case they have a positive COVID patient. They do have some possible insurance cuts, but she does not know right now. She said patient could go to [facility] until a bed opens up if they do not have any beds when patient is ready for discharge. HUGO told her SW will talk with patient's about this as well. Edwige LOPEZ MSW
--- NOTE | 2020-09-18 11:36 | CASEMGMT ---
HUGO called patient's . SW let her know [facility] can take patient, however they may not have a bed depending on when he is ready. HUGO explained [facility] and [facility] are owned by the same company. HUGO told her Laura with [facility] said if they do not have a bed when he is ready he could go to [facility] and when a bed opens up they could move him to [facility]. She asked about [facility]. She said that would be closer than [facility]. She asked if he could go to [facility] and move to [facility] when a bed opens up. HUGO told her SW will check with [facility]. Edwige LOPEZ MSW
[2020-09-18] MEDS: Docusate Sodium 100 MG Capsule PO (12:08)
[2020-09-18] MEDS: busPIRone 5 MG Tablet 10 MG PO (12:08)
[2020-09-18] MEDS: Doxycycline 100 MG CAPSULE PO (12:09)
[2020-09-18] MEDS: Clopidogrel Bisulfate 75 MG Tablet PO (12:09)
[2020-09-18] MEDS: Memantine Hydrochloride 5 MG Tablet PO (12:09)
[2020-09-18] MEDS: Ascorbic Acid 500 MG Tablet 1000 MG PO (12:10)
[2020-09-18] MEDS: Finasteride 5 MG Tablet PO (12:10)
[2020-09-18] MEDS: OXcarbazepine 300 MG Tablet PO (12:10)
--- NOTE | 2020-09-18 12:58 | CASEMGMT ---
HUGO called [facility] and spoke with Marybeth. HUGO told her patient's would like patient transferred to [facility] when a bed opens up. They will look at the referral and get back to . They said they can transfer him when a bed opens. Await their response. Edwige LOPEZ MSW
--- NOTE | 2020-09-18 14:33 | TREXTCAR_ITS ---
- Diet 09/18/20 11:53 Diet: Cardiac - Heart Healthy Food consistency:: Mechanical (Minced/Moist) Liquid Consistency:: Regular/Thin Is pt able to select menu?: No Diet Comments: small sips, staff must 1:1 supervise & pinch straw to limit volume - Routine Orders/Code Status Suppository Type: Dulcolax 10mg Suppository Frequency: Daily PRN Code Status: DNRCC-A - No intubation - Therapies Weight Bearing: Weight bearing as tolerated Extremity Affected:: Bilateral Lower Physical Therapy: Eval and Treat Occupational Therapy: Eval and Treat Speech Therapy: Eval and Treat - Allergies/Procedures Done in Hospital Allergies/Adverse Reactions: Allergies penicillin V Allergy (Mild, Verified 09/15/20 11:47) hives codeine Adverse Reaction (Mild, Verified 09/15/20 11:47) upset stomach divalproex sodium [From Depakote] Adverse Reaction (Verified 09/15/20 11:47) Other Per family, pt became very comatose on medication haloperidol [From Haldol] Adverse Reaction (Verified 09/15/20 11:47) Other Per family, pt became very comatose on medication pecans Allergy (Mild, Uncoded 09/06/20 16:02) stomach cramps - Type of Care/Length of Stay Estimated LOS: Convalescent Care Less Than 30 days Type of Care Needed: Skilled Rehab Potential: Good Prognosis: Good - Additional Orders/Day of Discharge Day of Discharge: 09/18/20 - Dietary and Speech Recommendations Dietitian Recommendations/Changes: If deemed safe for PO nutrition, suggest therapeutic diet of Cardiac with texture/consistency as per [employer]--pending MBS tomorrow 09/18. May need to consider TF support if determined unsafe for PO nutrition--consult RD as needed. - Follow Up Care Primary Care Physician: Carlos Lira Chi, MD [Primary Care Provider] - Please follow up with your Primary Care Physician in: In 1 to 2 weeks Please Follow Up With: Gabriel Morocho MD When: For history of seizure in 2 to 4 weeks
--- NOTE | 2020-09-18 14:50 | DS.PCM_ITS ---
Discharge Date and Diagnosis - Problem List Patient Problems: Active and Suspected Problems (Last Updated 09/15/20 @ 14:[address] Amanuel Ordoñez DO) New onset seizure (Acute) Altered mental status (Acute) Date of Admission: 09/15/20 Date of Discharge: 09/18/20 - Primary Discharge Diagnosis Acute Problems: Active Problems (Last Updated 09/15/20 @ 14:[address] Amanuel Ordoñez DO) New onset seizure (Acute) Altered mental status (Acute) - Secondary Discharge Diagnosis Chronic Problems: Chronic Problems (Last Updated 09/15/20 @ 14:[address] Amanuel Ordoñez DO) Non-rheumatic aortic stenosis (Chronic) Bilateral carotid artery stenosis (Chronic) stenting of left common carotid artery bifurcation 03/2019, stenting of right common carotid artery bifurcation 05/2018 CVA (cerebral vascular accident) (Chronic 03/2019) left hemispheric Essential (primary) hypertension (Chronic) Hyperlipidemia (Chronic) Hospital Course and Treatment Imaging Results: 09/18/20 10:50 Cookie Swallow [Swallowing Function w/Video] [RAD] Urgent Operations: None Summary of Care Provided: [] Patient is 75-year-old male admitted with change in mental status. As per H&P he was in normal state of health and then was confused and was growling at home. Patient also found to have tonic-clonic seizures for about 2 minutes. 1. Breakthrough seizure with history of seizure: His change in mental status was presumed to be postictal. MRI of his brain in December 2019 showed a diffuse cerebral and cerebellar atrophy with mild periventricular white matter changes but no acute infarct. Patient had a SOC neurology consult who increase Trileptal dose to 300 mg twice daily from 150 mg twice daily. EEG showed diffuse mild encephalopathy. No epileptiform discharges, seizure patterns or lateralizing signs. Patient had modified barium swallow. Speech therapist recommended mechanical, minced food consistency with thin liquid. Small sip with one-to-one supervision. 2. Dementia: Concern for Alzheimer type with behavioral pattern or may be frontotemporal dementia or mixed. * On donezepil as well as memantine. Follow-up with neurology as an outpatient. Patient also has history of stroke 3. 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 Avoid nephrotoxic medications. Last BUN/creatinine 29/1.88 on 09/15 with expected of single kidney. Repeat kidney function tomorrow a.m. Labs on 09/18 reviewed. Patient BUN/creatinine on baseline, not major difference in creatinine clearance, repeat creatinine 1.76. 4. Peripheral arterial disease * History of carotid stents. Continue with clopidogrel and statin 5. VTE prophylaxis with enoxaparin 6. Advanced care planning: DNR Comfort Care arrest no intubation. Discharge medication reconciliation done. Discharge follow-up instructions completed. Discharge process discussed with the patient and all questions were answered to patient's satisfaction. At home patient is on doxepin 50 mg and frequency was changed to dinnertime to avoid multiple sedative/antipsychotic medications at at bedtime. Avoid trazodone for hypotension, systolic blood pressure less than 110 mmHg. Total time spent, exact 35 minutes on discharge meds reconciliation, examination, coordination of care with nurses and ancillary staff, review of imaging and blood test and discussion with the patient on follow-up instructions Patient Problems: Active and Suspected Problems (Last Updated 09/15/20 @ 14:[address] Amanuel Ordoñez, DO) New onset seizure (Acute) Altered mental status (Acute) Objective: Seen and examined. Patient has advanced dementia and sometimes behavioral aggregation with restlessness, agitation in the afternoon. Modified barium swallow was done. Patient was quiet and restful in the morning. Physical exam General: Confused, disoriented. Repetitive behavior. HEENT: Atraumatic, PERRLA, EOMI, Normocephalic Oral: No Gingival or Mucosal Lesions/ Ulcerations Neck: Supple, No JVD, Negative Carotid Bruits Lungs: Air entry diminished in bilateral lung bases. No crepitation/rhonchi Cardiovascular: Regular rate, Regular Rhythm, Normal S1, Normal S2, No murmurs Abdomen: Bowel Sounds Present, Soft, Non Tender, Non-Distended : No renal angle tenderness. No suprapubic tenderness. Extremities: No edema, Capillary Refill Less than 3 Seconds. Mild atrophy of extremity muscles. Skin: No rashes, No breakdown Musculoskeletal: No Tenderness to Palpation of Joints or Extremities Neurological: Cranial nerves II-XII grossly intact, Deep Tendon Reflexes 2+/4 and Symmetrical, Neuro grossly intact Psych/Mental Status: Occasional restlessness and agitation. Advanced dementia - Physical Exam Vitals/I&O's: Vital Signs Temp Pulse Resp BP Pulse Ox 98.4 F 84 16 107/68 94 09/18/20 08:30 09/18/20 08:30 09/18/20 08:30 09/18/20 08:30 09/18/20 08:30 Oxygen Delivery Method Room Air Weight: 186 lb 8.177 oz Body Mass Index (BMI) 28.3 Intake and Output for Last 24 Hours 09/16/20 09/17/20 09/18/20 23:59 23:59 23:59 Intake Total 1340 / 1340 0 / 0 Output Total 400 / 400 Balance 940 / 940 0 / 0 Microbiology Past 72 Hours 09/15/20 18:45 Mucosa - Nose SARS-CoV-2 Antigen (Rapid) - Final Laboratory Results 09/18/20 06:48: WBC 9.6, RBC 4.31 L, Hgb 13.5, Hct 41.7, MCV 96.8 H, MCH 31.3, MCHC 32.4, RDW Std Deviation 46.3 H, RDW Coeff of Mally 13.0, Plt Count 280, MPV 9.6, Immature Gran % (Auto) 0.600, Neut % (Auto) 63.0, Lymph % (Auto) 22.4, [place] % (Auto) 9.6, Eos % (Auto) 3.4, Baso % (Auto) 1.0, Absolute Neuts (auto) 6.1, Absolute Lymphs (auto) 2.15, Nucleated RBC % 0 09/18/20 06:48: Sodium 143, Potassium 4.1, Chloride 114 H, Carbon Dioxide 22.0, Anion Gap 7, BUN 29 H, Creatinine 1.76 H, Estim Creat Clear Calc 34.55, Est GFR (MDRD) Af Amer 49 L, Est GFR (MDRD) Non-Af 40 L, BUN/Creatinine Ratio 16.5, Glucose 100, Calcium 9.2 Current Medications Acetaminophen (Acetaminophen 325 Mg Tablet) 650 mg PO Q6H PRN PRN PRN Reason: Pain Score 1-10/Temp > 100.7 F Ascorbic Acid (Ascorbic Acid 500 Mg Tablet) 1,000 mg PO DAILY [facility] Last Admin: 09/18/20 12:10 Dose: 1,000 mg Documented by: Aspirin (Aspirin E.C. 81 Mg Tablet) 81 mg PO QODAY [facility] Last Admin: 09/17/20 09:14 Dose: 81 mg Documented by: Atorvastatin Calcium (Atorvastatin Calcium 20 Mg Tablet) 20 mg PO QHS [facility] Last Admin: 09/17/20 20:29 Dose: Not Given Documented by: Buspirone HCl (Buspirone 5 Mg Tablet) 10 mg PO TID [facility] Cholecalciferol (Cholecalciferol (Vit D3) 1,000 Unit (25mcg)) 2,000 unit PO DAILY [facility] Last Admin: 09/18/20 12:10 Dose: 2,000 unit Documented by: Clopidogrel Bisulfate (Clopidogrel Bisulfate 75 Mg Tablet) 75 mg PO DAILY [facility] Last Admin: 09/18/20 12:09 Dose: 75 mg Documented by: Docusate Sodium (Docusate Sodium 100 Mg Capsule) 100 mg PO BID [facility] Last Admin: 09/18/20 12:08 Dose: 100 mg Documented by: Donepezil HCl (Donepezil Hcl 10 Mg Tablet) 10 mg PO QHS [facility] Last Admin: 09/17/20 20:29 Dose: Not Given Documented by: Doxycycline Monohydrate (Doxycycline 100 Mg Capsule) 100 mg PO DAILY [facility] Last Admin: 09/18/20 12:09 Dose: 100 mg Documented by: Enoxaparin Sodium (Enoxaparin 40 Mg/0.4 Ml Syringe) 40 mg SC DAILY [facility] Last Admin: 09/18/20 08:31 Dose: 40 mg Documented by: Finasteride (Finasteride 5 Mg Tablet) 5 mg PO DAILY [facility] Last Admin: 09/18/20 12:10 Dose: 5 mg Documented by: Lorazepam (Lorazepam 2 Mg/Ml Syringe) 2 mg IV Q4H PRN PRN PRN Reason: seiuzre Memantine (Memantine Hydrochloride 5 Mg Tablet) 5 mg PO BID [facility] Last Admin: 09/18/20 12:09 Dose: 5 mg Documented by: Oxcarbazepine (Oxcarbazepine 300 Mg Tablet) 300 mg PO BID [facility] Last Admin: 09/18/20 12:10 Dose: 300 mg Documented by: Quetiapine Fumarate (Quetiapine 25 Mg Tablet) 25 mg PO DAILY [facility] Sodium Chloride (0.9% Saline Lock 10 Ml Syringe) 10 - 40 ml IV UD PRN PRN Reason: SALINE FLUSH Trazodone HCl (Trazodone 100 Mg Tablet) 100 mg PO QHS [facility] Last Admin: 09/17/20 20:29 Dose: Not Given Documented by: Home Medications: Medications to take at Discharge Ascorbic Acid [Vitamin C] 1,000 mg PO DAILY 05/08/20 Aspirin [Aspirin EC] 81 mg PO QODAY 05/08/20 Docusate Sodium [Colace] 100 mg PO BID 05/08/20 Pitavastatin Calcium [Livalo] 4 mg PO DAILY 05/08/20 Finasteride [Proscar] 5 mg PO DAILY #30 tab 05/11/20 donepezil 10 mg tablet 10 mg PO QHS #30 tab 08/07/20 memantine 5 mg tablet 5 mg PO BID #60 tab 08/07/20 clopidogrel 75 mg tablet 75 mg PO DAILY #90 tab 08/23/20 trazodone 100 mg tablet 100 mg PO QHS #7 tab 09/12/20 Buspirone HCl 10 mg PO TID #60 tab 09/18/20 Cholecalciferol (Vitamin D3) [Vitamin D3] 5,000 unit PO DAILY #0 09/18/20 Doxepin HCl 50 mg PO DINNER #14 cap 09/18/20 Oxcarbazepine 300 mg PO BID #60 tab 09/18/20 Primary Care Physician: Carlos Lira Chi, MD [Primary Care Provider] - Please follow up with your Primary Care Physician in: In 1 to 2 weeks Please Follow Up With: Gabriel Morocho MD When: For history of seizure in 2 to 4 weeks Medical Necessity - Tobacco Use Smoking Status: Former smoker Tobacco Use: Cigarettes Meaningful Use Info Meaningful Use Diagnoses (Choose all that apply): None applicable Inpatient E&M: [id number] [facility]
--- NOTE | 2020-09-18 15:20 | CASEMGMT ---
Addendum entered by Edwige Kimbrough 09/18/20 15:54: SW was going to attempt to talk with patient about the next level of care for rehab, but he has fallen asleep and staff would prefer SW not wake him up. SW has been working with patient's who is patient's Healthcare Power of Chronic Manager on making the discharge plans. Edwige HARRINGTON Original Note: [facility] can take patient today. HUGO explained patient has Dementia and is not going to be happy when he arrives. SW asked about placing him in the Dementia Unit. Laxmi from [facility] said the physician just needs to document somewhere that patient would benefit from a secured unit due to wandering. SW notified physician. SW called patient's and let her know [facility] can take patient. SW let her know SW did tell them she would like him to go to [facility] when a bed opens up. HUGO also told her [facility] has a Dementia Unit that would better suit him right now. SW told her he will likely go today. HUGO faxed orders to [facility]. HUGO called Laxmi and let her know patient may not be very happy when he arrives. He wants to go home. HUGO called [facility] and arranged for patient to get picked up at via cot. SW did let them know patient has Dementia and he may not be happy about transport. HUGO called patient's and let her know about mushroom picker time. She said she hopes it goes well. She is aware no one has told patient he is going to a halfway as this will likely escalate patient's behaviors. She said she has told him that she cannot care for him anymore and that he can't come home. She asked if [facility] would call her when he arrives. HUGO told her SW will call them and ask them to call her when he arrives. HUGO notified Marybeth at [facility] of mushroom picker time as well as asked her to have someone call patient's when he arrives. RN and bushing press operator were also notified of mushroom picker time. Convalescent was done on [facility]. Plan: d/c to [facility] under skilled level of care on a convalescent stay. [facility] transported patient via cot. Edwige HARRINGTON
--- NOTE | 2020-09-18 16:03 | NURSING ---
This RN called [facility] Dementia unit and report given to Ruthie. Transport to be here at 1700 to take patient to [facility].
[2020-09-18 16:32] VITALS: BP 105/74; PULSE 97; RESP 18; TEMP 37.1; O2SAT 94
--- NOTE | 2020-09-18 17:34 | ST.MBS ---
Modified Barium Swallow - Patient Information Study Date: 09/18/20 Study Time: 10:45 Direct Billable Minutes: 125 Total Minutes procedure & reportin Diagnosis: Dysphagia Referring Physician: Wellington Canales Reason for Referral: Objective assessment of swallow function under fluoroscopy recommended following bedside assessment. Medical History: Patient is a 75 YOM admitted to [facility] on 08/15/2020 d/t an acute change in mental status with witnessed tonic clonic seizure activity. 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 Thrush of mouth and esophagus, Cardiac murmur, Encephalopathy, Hip fracture - left; hx Tracheostomy placed 10/2018, removed 01/2019 Current Diet Ordered: NPO pending MBS findings Dentition: Edentulous Mental Status: Impaired Respiratory Status: Oxygenating on Room Air - Penetration-Aspiration Scale Penetration-Aspiration Scale: OBJECTIVE ASSESSMENT OF SWALLOW FUNCTION (QUANTITATIVE ? PER TRIAL): PENETRATION / ASPIRATION SCALE (GÓMEZ): 1 = does not enter airway 2 = enters airway/above vocal folds/ejected 3 = enters airway/above vocal folds/not ejected 4 = enters airway/contacts vocal folds/ejected 5 = enters airway/contacts vocal folds/not ejected 6 = enters airway/below vocal folds/ejected 7 = enters airway/below vocal folds/not ejected despite effort 8 = enters airway/below vocal folds/no effort VIDEOFLOROSCOPIC SCALE SCORE (GÓMEZ): Grade I = aspiration of material that has penetrated into the laryngeal vestibule, intact cough reflex Grade II = aspiration < 10 % of the bolus, intact cough reflex Grade III = aspiration of < 10 % of the bolus, reduced cough reflex or aspiration of > 10 % of the bolus, intact cough reflex Grade IV = aspiration of > 10 % of the bolus, reduced cough reflex - Penetration-Aspiration Scale Score Thin Liquid via teaspoon Result: 1= does not enter airway Thin Liquid via teaspoon Trial 2 Result: 1= does not enter airway Thin Liquid - large volume - sequential swallows via cup Result: 4= enters airway/contacts vocal folds/ejected Thin liquid - large volume - via cup Result: 2= enter airway/above vocal folds/ejected Thin Liquid via small single sip from cup Result: 1= does not enter airway Thin Liquid via single sip from straw Result: 1= does not enter airway Pudding Result: 1= does not enter airway Pudding Trial 2 Result: 1= does not enter airway Cookie Result: 1= does not enter airway Thin Liquid via single sip from straw Trial 2 Result: 1= does not enter airway - Oral Phase Labial Seal: No Labial Escape Tongue Control During Bolus Hold: Escape to lateral buccal cavity/floor of mouth Bolus Preparation/Mastication: Disorganized chewing/mashing with solid pieces of bolus unchewed Bolus Transport/Lingual Motion: Repetitive/disorganized tongue motion Oral Residue: Trace residue lining oral structures - Pharyngeal Phase Initiation of Pharyngeal Swallow: Bolus head at posterior angle of ramus at first hyoid excursion Soft Palate Elevation: No bolus between soft palate and pharyngeal wall Laryngeal Elevation: Comp. Superior move thyroid cart w/comp. apprx arytenoid cart-epig pet Anterior Hyoid Excursion: Complete anterior movement Epiglottic Movement: Complete inversion Laryngeal Vestibule Closure at Height of Swallow: Incomplete; narrow column of air/contrast in laryngeal vestibule Pharyngeal Stripping Wave: Present - diminished Pharyngoesophageal Segment Opening: Parital distension and partial duration; parital obstruction of flow Tongue Base Retraction: Trace column of contrast between tongue base & post. pharyngeal wall Pharyngeal Residue: Collection of residue within or on pharyngeal structures - Esophageal Phase Esophageal Clearance: Complete clearance - Treatment Strategies Effects of treatment strategies attemped:: Limiting liquid bolus volume = effective - Diagnosis/Impression Diagnosis: mild oropharyngeal dysphagia Impression: Oral phase marked by: liquid spillage to floor of mouth prior to recollection for swallow onset poor rate control w/ large volume and sequential swallows consumed prolonged mastication w/ repetitive/disorganized oral transit poor safety awareness w/ talking during oral prep mild oral residue retention post deglutition of solid textures Pharyngeal phase marked by: reduced pharyngoesophageal segment distention/duration which resulted in pyriform pooling w/ laryngeal vestibule penetration during large volume/sequential swallows airway protection improved w/ reduction in bolus volume, although d/t cognitive limitations was unable to successfully control rate of intake despite max verbal and visual cues improved control when liquids consumed via straw w/ EQUIPMENT SPECIALIST pinching to reduce bolus flow Esophageal phase marked by: cricopharyngeal hypertrophy no retrograde bolus flow below PES esophageal scan revealed sufficient esophageal clearance - Recommendations Diet: Mechanical Soft Textures, Thin Liquids, [place]-thick Liquids Comment: Unable to execute swallowing precautions for safety despite verbal cues - 1:1 staff supervision w/ meals, liquids by straw, staff assist to pinch straw/limit volume to single sips, one at a time - would benefit from provale cup if possible. Compensatory Strategies: Small Bites, Small Sips, Slow Rate Supervision: Assist as needed, 1:1 Close Supervision Recommend Repeat Modified Barium Swallow: No Need for Skilled Speech Therapy Services: Yes Education Completed: 1. Described result of evaluation., 7. Pt requires further education on strategies & risks. - Status Active ST Patient: Active - Contact Information [facility] Speech Therapy:: Marietta Ahn M.A., [facility]-EQUIPMENT SPECIALIST Speech-Language Pathologist [email or web address] [phone]
== END 2020-09-18 17:55 | disposition skilled nursing facility (03) | DRG 101 ==
LOC: ED 14:33 → PCU 14:52
PROVIDERS: Emergency Provider Emergency Medicine; PCP Family Medicine Geriatric Medicine; Visit Provider Internal Medicine
DX: G40.909 Epilepsy, unspecified, not intractable, without status epilepticus (principal); F31.9 Bipolar disorder, unspecified; I12.9 Hypertensive chronic kidney disease with stage 1 through stage 4 chronic kidney disease, or unspecified chronic kidney disease; N18.30 Chronic kidney disease, stage 3 unspecified; E78.5 Hyperlipidemia, unspecified; G30.9 Alzheimer's disease, unspecified; F02.80 Dementia in other diseases classified elsewhere, unspecified severity, without behavioral disturbance, psychotic disturbance, mood disturbance, and anxiety; I73.9 Peripheral vascular disease, unspecified; I35.0 Nonrheumatic aortic (valve) stenosis; N40.0 Benign prostatic hyperplasia without lower urinary tract symptoms; D64.9 Anemia, unspecified; K21.9 Gastro-esophageal reflux disease without esophagitis; I65.23 Occlusion and stenosis of bilateral carotid arteries; Z86.711 Personal history of pulmonary embolism; Z86.718 Personal history of other venous thrombosis and embolism; Z86.73 Personal history of transient ischemic attack (TIA), and cerebral infarction without residual deficits; Z90.5 Acquired absence of kidney; Z87.891 Personal history of nicotine dependence; Z95.2 Presence of prosthetic heart valve; Z87.19 Personal history of other diseases of the digestive system; Z95.828 Presence of other vascular implants and grafts; Z79.82 Long term (current) use of aspirin; Z79.02 Long term (current) use of antithrombotics/antiplatelets; Z79.899 Other long term (current) drug therapy
CPT/HCPCS: 36415; 70450; 71045; 74230; 80048; 80053; 81001; 85025; 87426; 92526; 92610; 92611; 95819; 97110; 97116; 97162; 97165; 97530; 97535; 99285; J7030; A4216

== ENCOUNTER → 2020-10-10 10:39 | Outpatient (CLI) | payer MEDICARE, OTHER, SELFPAY ==
[2020-10-10 10:39] VITALS: BMI 27.9
[2020-10-10 12:53] LABS: Potassium 4.2 mmol/L (3.5-5.1)
== END ==
PROVIDERS: PCP Family Medicine Geriatric Medicine; Visit Provider Internal Medicine Nephrology
DX: E87.5 Hyperkalemia (principal)
CPT/HCPCS: 36415; 84132

== ENCOUNTER → 2020-11-08 05:00 | Outpatient (REF) | payer MEDICARE, OTHER, SELFPAY ==
[2020-10-10 10:39] VITALS: BMI 27.9
[2020-11-08 07:29] LABS: Absolute Lymphocyte Count 1.86 X10^3/uL (0.83-4.51); Absolute Neutrophil Count 4.1 X10^3/uL (2.0-7.7); Basophil# 0.08 X10^3/uL; Basophil% 1.1 % (0-1); Eosinophil# 0.36 X10^3/uL; Eosinophils% 5.1 % (0-5); Hematocrit 44.1 % (40-54); Hemoglobin 14.8 g/dL (13.0-16.5); Lymphocyte # 1.86 X10^3/ul (4.0); Lymphocyte % 26.2 % (19-41); Mean Corp Hgb Conc 33.6 g/dL (32-36); Mean Corpuscular Hgb 31.4 pg (27.0-32.0); Mean Corpuscular Volume 93.6 fL (80-94); Mean Platelet Vol. 9.8 fl (6.2-12.0); Monocyte# 0.73 X10^3/uL; Monocyte% 10.3 % (0-10); NRBC Flagged by Analyzer 0 % (0-5); Neutrophil # 4.05 X10^3/uL (2.7-7.7); Neutrophil % 56.9 % (47-70); Platelet Count 268 K/mm3 (150-450); RBC Distribution Width CV 12.9 % (11.6-14.6); RBC Distribution Width SD 44.6 fl (35.1-43.9); Red Blood Count 4.71 M/mm3 (4.6-6.2); White Blood Count 7.1 K/mm3 (4.4-11.0)
[2020-11-08 08:07] LABS: Cholesterol 248 mg/dL (200); High Density Lipoprotein 33 mg/dL; Triglycerides 364 mg/dL; Very Low Density Lipoprotein 73 mg/dL (5-40)
[2020-11-08 08:20] LABS: Vitamin D,25 Hydroxy 36.3 ng/mL
== END ==
LOC: OLS.BROOKB 05:00
PROVIDERS: PCP Family Medicine Geriatric Medicine; Referring Provider Family Medicine Geriatric Medicine; Visit Provider Family Medicine Geriatric Medicine
DX: N40.0 Benign prostatic hyperplasia without lower urinary tract symptoms (principal); I10 Essential (primary) hypertension; E78.5 Hyperlipidemia, unspecified; Z79.899 Other long term (current) drug therapy
CPT/HCPCS: 36415; 80061; 82306; 85025

== ENCOUNTER → 2021-01-29 15:06 | Outpatient (CLI) | payer MEDICARE, OTHER, SELFPAY ==
[2020-10-10 10:39] VITALS: BMI 27.9
[2021-01-29 16:17] LABS: Absolute Lymphocyte Count 1.96 X10^3/uL (0.83-4.51); Absolute Neutrophil Count 3.4 X10^3/uL (2.0-7.7); Basophil# 0.09 X10^3/uL; Basophil% 1.4 % (0-1); Eosinophil# 0.28 X10^3/uL; Eosinophils% 4.4 % (0-5); Hematocrit 43.3 % (40-54); Hemoglobin 14.1 g/dL (13.0-16.5); Lymphocyte # 1.96 X10^3/ul (4.0); Lymphocyte % 30.6 % (19-41); Mean Corp Hgb Conc 32.6 g/dL (32-36); Mean Corpuscular Volume 95.2 fL (80-94); Mean Platelet Vol. 10.3 fl (6.2-12.0); Monocyte# 0.69 X10^3/uL; Monocyte% 10.8 % (0-10); NRBC Flagged by Analyzer 0 % (0-5); Neutrophil # 3.36 X10^3/uL (2.7-7.7); Neutrophil % 52.3 % (47-70); Platelet Count 304 K/mm3 (150-450); RBC Distribution Width CV 12.9 % (11.6-14.6); RBC Distribution Width SD 45.1 fl (35.1-43.9); Red Blood Count 4.55 M/mm3 (4.6-6.2); White Blood Count 6.4 K/mm3 (4.4-11.0)
[2021-01-29 16:47] LABS: AST(SGOT) 32 U/L (15-37); Alanine Aminotransfer ALT/SGPT 40 U/L (16-61); Albumin, Serum 3.9 g/dL (3.2-5.0); Alkaline Phosphatase 113 U/L (45-117); Anion Gap 11 (5-15); BUN 22 mg/dL (7-18); BUN/Creat Ratio 12.9 RATIO (10-20); Calcium,Total 9.5 mg/dL (8.5-10.1); Chloride 106 mmol/L (98-107); EST Glomerular Filtration Rate 42 mL/min (>60); Est Glom Filt Rate - Afr Amer 51 mL/min (>60); Globulin 3.8 g/dL (2.2-4.2); Glucose 92 mg/dL (74-106); Potassium 4.4 mmol/L (3.5-5.1); Protein, Total 7.7 g/dL (6.4-8.2); Sodium Level 140 mmol/L (136-145); Thyroid Stim Hormone (TSH) 1.82 uIU/mL (0.358-3.74)
== END ==
PROVIDERS: PCP Family Medicine Geriatric Medicine; Visit Provider Family Medicine Geriatric Medicine
DX: E55.9 Vitamin D deficiency, unspecified (principal); R53.83 Other fatigue
CPT/HCPCS: 36415; 80053; 82306; 84443; 85025

== ENCOUNTER → 2021-02-05 14:30 | Outpatient (CLI) | payer MEDICARE, OTHER, SELFPAY ==
[2021-02-05 14:27] VITALS: BMI 28.3
[2021-02-11 07:49] LABS: Trileptal-Oxcarbazepine 15 ug/mL (10-35)
== END ==
PROVIDERS: PCP Family Medicine Geriatric Medicine; Referring Provider Psychiatry & Neurology Neurology; Visit Provider Psychiatry & Neurology Neurology
DX: G40.909 Epilepsy, unspecified, not intractable, without status epilepticus (principal)
CPT/HCPCS: 36415; 82542

== ENCOUNTER → 2021-04-09 14:47 | Outpatient (CLI) | payer MEDICARE, OTHER, SELFPAY ==
[2020-10-10 10:39] VITALS: BMI 27.9
[2021-04-09 11:11] VITALS: BMI 29.9
[2021-04-09 16:37] LABS: Albumin, Serum 3.6 g/dL (3.2-5.0); BUN 24 mg/dL (7-18); BUN/Creat Ratio 14.3 RATIO (10-20); Calcium,Total 8.9 mg/dL (8.5-10.1); Chloride 108 mmol/L (98-107); Creatinine, Serum 1.68 mg/dL (0.70-1.30); EST Glomerular Filtration Rate 42 mL/min (>60); Est Glom Filt Rate - Afr Amer 51 mL/min (>60); Glucose 104 mg/dL (74-106); Phosphorus 3.7 mg/dL (2.5-4.9); Potassium 4.6 mmol/L (3.5-5.1); Sodium Level 140 mmol/L (136-145)
== END ==
PROVIDERS: PCP Family Medicine Geriatric Medicine; Referring Provider Internal Medicine Nephrology; Visit Provider Internal Medicine Nephrology
DX: N18.32 Chronic kidney disease, stage 3b (principal)
CPT/HCPCS: 36415; 80069; 83970

== ENCOUNTER → 2021-04-23 | Outpatient (CLI) | payer MEDICARE, OTHER, SELFPAY ==
[2021-04-09 11:11] VITALS: BMI 29.9
[2021-04-23 17:16] LABS: M R Staph aureus DNA By PCR Negative (Negative); Probe Check PASS; Staph aureus DNA By PCR NEGATIVE (Negative)
== END | disposition home or self-care (01) ==
LOC: LABSPEC 14:27
PROVIDERS: PCP Family Medicine Geriatric Medicine; Visit Provider Family Medicine Geriatric Medicine
DX: S51.009A Unspecified open wound of unspecified elbow, initial encounter (principal); B95.62 Methicillin resistant Staphylococcus aureus infection as the cause of diseases classified elsewhere
CPT/HCPCS: 87070; 87205; 87640

== ENCOUNTER → 2021-05-01 12:12 | Outpatient (CLI) | payer MEDICARE, OTHER, SELFPAY ==
[2021-04-09 11:11] VITALS: BMI 29.9
[2021-05-01 15:45] LABS: Absolute Lymphocyte Count 2.29 X10^3/uL (0.83-4.51); Basophil# 0.09 X10^3/uL; Basophil% 1.4 % (0-1); Eosinophil# 0.35 X10^3/uL; Eosinophils% 5.3 % (0-5); Hemoglobin 12.7 g/dL (13.0-16.5); Lymphocyte # 2.29 X10^3/ul (0.83-4.51); Mean Corp Hgb Conc 32.6 g/dL (32-36); Mean Corpuscular Hgb 30.8 pg (27.0-32.0); Mean Corpuscular Volume 94.4 fL (80-94); Mean Platelet Vol. 10.3 fl (6.2-12.0); Monocyte# 0.74 X10^3/uL; Monocyte% 11.3 % (0-10); NRBC Flagged by Analyzer 0 % (0-5); Neutrophil # 3.04 X10^3/uL (2.7-7.7); Neutrophil % 46.4 % (47-70); Platelet Count 307 K/mm3 (150-450); RBC Distribution Width CV 12.9 % (11.6-14.6); RBC Distribution Width SD 44.8 fl (35.1-43.9); Red Blood Count 4.13 M/mm3 (4.6-6.2); White Blood Count 6.6 K/mm3 (4.4-11.0)
[2021-05-01 16:05] LABS: AST(SGOT) 26 U/L (15-37); Alanine Aminotransfer ALT/SGPT 26 U/L (16-61); Albumin, Serum 3.7 g/dL (3.2-5.0); Alkaline Phosphatase 102 U/L (45-117); Anion Gap 8 (5-15); BUN 21 mg/dL (7-18); BUN/Creat Ratio 12.3 RATIO (10-20); Calcium,Total 8.8 mg/dL (8.5-10.1); Chloride 107 mmol/L (98-107); Creatinine, Serum 1.71 mg/dL (0.70-1.30); EST Glomerular Filtration Rate 42 mL/min (>60); Est Glom Filt Rate - Afr Amer 50 mL/min (>60); Globulin 3.6 g/dL (2.2-4.2); Glucose 107 mg/dL (74-106); Potassium 4.5 mmol/L (3.5-5.1); Protein, Total 7.3 g/dL (6.4-8.2); Sodium Level 140 mmol/L (136-145); Thyroid Stim Hormone (TSH) 1.41 uIU/mL (0.358-3.74)
[2021-05-01 16:17] LABS: Vitamin D,25 Hydroxy 28.8 ng/mL
== END ==
PROVIDERS: PCP Family Medicine Geriatric Medicine; Visit Provider Family Medicine Geriatric Medicine
DX: R53.83 Other fatigue (principal); E55.9 Vitamin D deficiency, unspecified
CPT/HCPCS: 36415; 80053; 82306; 84443; 85025

== ENCOUNTER → 2021-05-09 05:00 | Outpatient (REF) | payer MEDICARE, OTHER, SELFPAY ==
[2021-04-09 11:11] VITALS: BMI 29.9
[2021-05-09 08:51] LABS: Absolute Lymphocyte Count 2.45 X10^3/uL (0.83-4.51); Absolute Neutrophil Count 3.9 X10^3/uL (2.0-7.7); Basophil# 0.09 X10^3/uL; Basophil% 1.2 % (0-1); Eosinophil# 0.45 X10^3/uL; Eosinophils% 5.8 % (0-5); Hematocrit 38.5 % (40-54); Hemoglobin 12.7 g/dL (13.0-16.5); Lymphocyte # 2.45 X10^3/ul (0.83-4.51); Lymphocyte % 31.3 % (19-41); Mean Corpuscular Hgb 31.1 pg (27.0-32.0); Mean Corpuscular Volume 94.4 fL (80-94); Mean Platelet Vol. 9.8 fl (6.2-12.0); Monocyte# 0.94 X10^3/uL; NRBC Flagged by Analyzer 0 % (0-5); Neutrophil # 3.85 X10^3/uL (2.7-7.7); Neutrophil % 49.2 % (47-70); Platelet Count 275 K/mm3 (150-450); RBC Distribution Width CV 12.9 % (11.6-14.6); RBC Distribution Width SD 44.7 fl (35.1-43.9); Red Blood Count 4.08 M/mm3 (4.6-6.2); White Blood Count 7.8 K/mm3 (4.4-11.0)
[2021-05-09 09:25] LABS: ALB/GLOB Ratio 0.9 RATIO (0.9-2.4); AST(SGOT) 33 U/L (15-37); Alanine Aminotransfer ALT/SGPT 35 U/L (16-61); Albumin, Serum 3.6 g/dL (3.2-5.0); Alkaline Phosphatase 105 U/L (45-117); Anion Gap 10 (5-15); BUN 20 mg/dL (7-18); BUN/Creat Ratio 10.9 RATIO (10-20); Calcium,Total 8.8 mg/dL (8.5-10.1); Chloride 108 mmol/L (98-107); Creatinine, Serum 1.83 mg/dL (0.70-1.30); EST Glomerular Filtration Rate 38 mL/min (>60); Est Glom Filt Rate - Afr Amer 46 mL/min (>60); Glucose 91 mg/dL (74-106); Potassium 4.3 mmol/L (3.5-5.1); Protein, Total 7.6 g/dL (6.4-8.2); Sodium Level 139 mmol/L (136-145)
[2021-05-09 21:20] LABS: Vitamin D,25 Hydroxy 33.5 ng/mL
== END ==
LOC: OLS.DANBUR 05:00
PROVIDERS: PCP Family Medicine Geriatric Medicine; Referring Provider Family Medicine Geriatric Medicine; Visit Provider Family Medicine Geriatric Medicine
DX: I10 Essential (primary) hypertension (principal); E11.9 Type 2 diabetes mellitus without complications; E55.9 Vitamin D deficiency, unspecified
CPT/HCPCS: 36415; 80053; 82306; 84443; 85025

== ENCOUNTER → 2021-05-23 07:35 | Outpatient (CLI) | payer MEDICARE, OTHER, SELFPAY ==
[2021-04-09 11:11] VITALS: BMI 29.9
--- NOTE | 2021-05-23 15:40 | RAD_ITS ---
STUDY: X-RAY - ABDOMEN/PELVIS REASON FOR EXAM: Male, 75 years old. FECAL IMPACTION TECHNIQUE: 3 views COMPARISON: None. FINDINGS: Normal visualized lung bases. There is an unremarkable bowel gas pattern. There is no demonstrated free abdominal air. IVC filter is noted in place. Surgical clips are noted in the left upper quadrant. Normal soft tissue structures. Degenerative vertebral changes. RAD/Abd Inc Decub and/or Erect IMPRESSION: No sign of bowel obstruction. No significant fecal retention. Electronically Signed: Freddy Shi DO at 16:05 EDT Tel [phone], Service support ,
== END ==
LOC: LAB 16:04 → RAD 05-24 07:35
PROVIDERS: PCP Family Medicine Geriatric Medicine; Referring Provider Family Medicine Geriatric Medicine; Visit Provider Family Medicine Geriatric Medicine
DX: K56.41 Fecal impaction (principal)
CPT/HCPCS: 74019

== ENCOUNTER → 2021-05-24 09:53 | Outpatient (CLI) | payer MEDICARE, OTHER, SELFPAY ==
[2021-04-09 11:11] VITALS: BMI 29.9
[2021-05-24 10:26] LABS: Absolute Lymphocyte Count 1.87 X10^3/uL (0.83-4.51); Absolute Neutrophil Count 3.8 X10^3/uL (2.0-7.7); Basophil# 0.07 X10^3/uL; Eosinophil# 0.34 X10^3/uL; Hematocrit 40.1 % (40-54); Hemoglobin 13.2 g/dL (13.0-16.5); Lymphocyte # 1.87 X10^3/ul (0.83-4.51); Lymphocyte % 27.3 % (19-41); Mean Corp Hgb Conc 32.9 g/dL (32-36); Mean Corpuscular Hgb 30.9 pg (27.0-32.0); Mean Corpuscular Volume 93.9 fL (80-94); Mean Platelet Vol. 9.6 fl (6.2-12.0); Monocyte# 0.67 X10^3/uL; Monocyte% 9.8 % (0-10); NRBC Flagged by Analyzer 0 % (0-5); Neutrophil # 3.84 X10^3/uL (2.7-7.7); Neutrophil % 56.2 % (47-70); Platelet Count 284 K/mm3 (150-450); RBC Distribution Width CV 12.9 % (11.6-14.6); RBC Distribution Width SD 44.5 fl (35.1-43.9); Red Blood Count 4.27 M/mm3 (4.6-6.2); White Blood Count 6.8 K/mm3 (4.4-11.0)
[2021-05-24 10:55] LABS: Anion Gap 7 (5-15); BUN 21 mg/dL (7-18); BUN/Creat Ratio 12.3 RATIO (10-20); Calcium,Total 9.2 mg/dL (8.5-10.1); Chloride 110 mmol/L (98-107); Creatinine, Serum 1.71 mg/dL (0.70-1.30); EST Glomerular Filtration Rate 42 mL/min (>60); Est Glom Filt Rate - Afr Amer 50 mL/min (>60); Glucose 106 mg/dL (74-106); Potassium 4.6 mmol/L (3.5-5.1); Sodium Level 137 mmol/L (136-145)
== END ==
PROVIDERS: PCP Family Medicine Geriatric Medicine; Referring Provider Family Medicine Geriatric Medicine; Visit Provider Family Medicine Geriatric Medicine
DX: G93.9 Disorder of brain, unspecified (principal); R19.7 Diarrhea, unspecified
CPT/HCPCS: 36415; 80048; 82274; 83630; 85025; 87493; 87506

== ENCOUNTER → 2021-05-28 09:44 | Outpatient (CLI) | payer MEDICARE, OTHER, SELFPAY ==
[2021-04-09 11:11] VITALS: BMI 29.9
== END ==
PROVIDERS: PCP Family Medicine Geriatric Medicine; Referring Provider Family Medicine Geriatric Medicine; Visit Provider Family Medicine Geriatric Medicine
DX: R19.7 Diarrhea, unspecified (principal)
CPT/HCPCS: 87177; 87209

== ENCOUNTER 2021-10-28 13:08 | Outpatient (CLI) | payer MEDICARE, OTHER, SELFPAY ==
[2021-10-28 17:19] LABS: Absolute Lymphocyte Count 2.08 X10^3/uL (0.83-4.51); Absolute Neutrophil Count 3.7 X10^3/uL (2.0-7.7); Basophil% 1.4 % (0-1); Eosinophil# 0.52 X10^3/uL; Eosinophils% 7.1 % (0-5); Hemoglobin 14.5 g/dL (13.0-16.5); Lymphocyte # 2.08 X10^3/ul (0.83-4.51); Lymphocyte % 28.4 % (19-41); Mean Corpuscular Hgb 30.6 pg (27.0-32.0); Mean Corpuscular Volume 92.8 fL (80-94); Monocyte# 0.86 X10^3/uL; Monocyte% 11.7 % (0-10); NRBC Flagged by Analyzer 0 % (0-5); Neutrophil # 3.67 X10^3/uL (2.7-7.7); Neutrophil % 50.2 % (47-70); Platelet Count 320 K/mm3 (150-450); RBC Distribution Width SD 47.7 fl (35.1-43.9); Red Blood Count 4.74 M/mm3 (4.6-6.2); White Blood Count 7.3 K/mm3 (4.4-11.0)
[2021-10-28 17:40] LABS: Vitamin D,25 Hydroxy 17.1 ng/mL
[2021-10-28 17:52] LABS: ALB/GLOB Ratio 0.8 RATIO (0.9-2.4); AST(SGOT) 36 U/L (15-37); Alanine Aminotransfer ALT/SGPT 48 U/L (16-61); Albumin, Serum 3.9 g/dL (3.2-5.0); Alkaline Phosphatase 121 U/L (45-117); Anion Gap 8 (5-15); BUN 22 mg/dL (7-18); BUN/Creat Ratio 11.5 RATIO (10-20); Calcium,Total 9.4 mg/dL (8.5-10.1); Chloride 104 mmol/L (98-107); Creatinine, Serum 1.92 mg/dL (0.70-1.30); EST Glomerular Filtration Rate 36 mL/min (>60); Est Glom Filt Rate - Afr Amer 44 mL/min (>60); Globulin 4.9 g/dL (2.2-4.2); Glucose 108 mg/dL (74-106); Protein, Total 8.8 g/dL (6.4-8.2); Sodium Level 138 mmol/L (136-145); Thyroid Stim Hormone (TSH) 1.81 uIU/mL (0.358-3.74)
== END 2021-10-28 23:59 | disposition short-term general hospital (02) ==
PROVIDERS: PCP Family Medicine Geriatric Medicine; Visit Provider Family Medicine Geriatric Medicine
DX: E55.9 Vitamin D deficiency, unspecified (principal); R53.83 Other fatigue
CPT/HCPCS: 36415; 80053; 82274; 82306; 84443; 85025

== ENCOUNTER 2021-11-19 00:10 | Observation (INO) | payer MEDICARE, OTHER, SELFPAY ==
[2021-11-19] VITALS (8 sets, daily range): BP systolic 95–137; BP diastolic 72–86; PULSE 80–95; RESP 15–17; TEMP 36.4–37.9; O2SAT 94–95; BMI 31.0; BMI 30.8
--- NOTE | 2021-11-19 00:34 | RAD_ITS ---
STUDY: X-RAY CHEST REASON FOR EXAM: Male, 76 years old. fever TECHNIQUE: Single AP portable view of the chest. COMPARISON: None. FINDINGS: The lungs are clear and expanded. There is no demonstrated pleural abnormality. Sternal cerclage wires and vascular clips are present from a prior sternotomy and coronary artery bypass graft procedure (CABG). Normal mediastinum and michaelle. Normal visualized pulmonary arteries. Normal visualized aortic arch and descending thoracic aorta. Normal visualized thoracic spine. There is degenerative osteoarthritis of the bilateral shoulders. There is no demonstrated abnormality of the visualized soft tissue structures of the upper abdomen. RAD/Chest 1 View (Portable) IMPRESSION: Degenerative changes, as described above. No demonstrated acute cardiopulmonary process. Electronically Signed: Merrick Peraza MD at 1:50 EST ,
--- NOTE | 2021-11-19 00:34 | EKG12_ITS ---
Test Reason : WEAKNESS Blood Pressure : / mmHG Vent. Rate : 094 BPM Atrial Rate : 094 BPM P-R Int : 174 ms QRS Dur : 082 ms QT Int : 360 ms P-R-T Axes : 051 -16 063 degrees QTc Int : 450 ms Normal sinus rhythm Normal ECG Confirmed by ANGEL ADAIR, CHARLOTTE ([id number]), editor department BOLA BO ([id number]) on 11/19/2021 8:42:47 AM Referred By: SINCERE Confirmed By:CHARLOTTE ORTIZ MD
--- NOTE | 2021-11-19 00:35 | CT_ITS ---
STUDY: CT BRAIN WITHOUT CONTRAST REASON FOR EXAM: Male, 76 years old. falls RADIATION DOSAGE (If Supplied By Facility): CTDIvol = ( 44.99 ) mGy, DLP = ( 779.24 ) mGycm TECHNIQUE: Transaxial CT imaging of the brain was performed without administration of intravenous contrast material. Individualized dose optimization techniques were used for this CT. COMPARISON: No relevant priors. FINDINGS: Normal soft tissue structures. Normal calvarium. There is mild cerebral atrophy with widening of the extra-axial spaces and ventricular dilatation. There are areas of decreased attenuation within the white matter tracts of the supratentorial brain, consistent with microvascular disease changes. Normal basal ganglia and thalami. Normal brainstem. Normal cerebellum. There is no intracranial hemorrhage. There are no findings of an acute ischemic infarction. Normal visualized paranasal sinuses. CT/Brain/Head without Contrast IMPRESSION: Chronic involutional changes of the brain. Electronically Signed: Merrcik Peraza MD at 1:51 EST ,
--- NOTE | 2021-11-19 00:37 | EDS_ITS ---
HPI HPI - Fall History of Present Illness Chief Complaint: Fall Informant: patient and spouse/S.O. Occured/Mechanism Occurred: Days Mechanism/Context: Yes same level fall Usually ambulates: Without assistance Pain/Injury Current Severity: Mild Maximum Severity: Mild Associated Symptoms Associated Symptoms: Negative for Parasthesias, Weakness, Loss of function, Inability to ambulate, Loss of consciousness and Amnesia Narrative Narrative: 76-year-old male from extended-care facility called by his . Has extensive past medical history. Currently is on no blood thinners. He fell twice on Thursday and again this evening. states has not recently been ill. She denies any cough. She is not known of any fever or dysuria. He has not been hospitalized recently. Patient denies any complaints. He denies any headache or neck pain. He denies any chest or abdominal pain. He denies any extremity pain. He does have dementia and is somewhat a limited informant. Prior similar symptoms: Yes Recent Illness/Hospitalization: No PFSH PFS Medical History Allergic rhinitis Altered mental status Anemia Bilateral carotid artery stenosis Bipolar 1 disorder BPH (benign prostatic hyperplasia) Chronic kidney disease CVA (cerebral vascular accident) (03/2019) Diabetes insipidus, nephrogenic Donor, kidney Encephalopathy Essential (primary) hypertension GERD (gastroesophageal reflux disease) Hip fracture, left History of DVT (deep vein thrombosis) History of pulmonary embolism History of small bowel obstruction Hyperlipidemia New onset seizure Non-rheumatic aortic stenosis Osteoarthritis Peripheral arterial occlusive disease Presence of IVC filter Seizure Thrush of mouth and esophagus Tracheostomy in place Home Medications aspirin 81 mg PO QODAY 05/08/20 [History Last Taken 05/07/20] finasteride 5 mg PO DAILY #30 tab 05/11/20 [Rx Last Taken Unknown] buspirone 10 mg PO TID #60 tab 09/18/20 [Rx Last Taken Unknown] clotrimazole-betamethasone 1 %-0.05 % topical cream gm TOPICAL 02/05/21 [History Last Taken Unknown] donepezil 10 mg tablet 10 mg PO QHS #30 tablet 02/05/21 [Rx Last Taken Unknown] memantine 5 mg tablet 5 mg PO BID #60 tab 02/05/21 [Rx Last Taken Unknown] oxcarbazepine 300 mg tablet 300 mg PO BID #60 tablet 02/05/21 [Rx Last Taken Unknown] doxepin 75 mg capsule 75 mg PO DAILY cap 04/09/21 [History Last Taken Unknown] fluoxetine 40 mg capsule 40 mg PO DAILY cap 04/09/21 [History Last Taken Unknown] acetaminophen 325 mg capsule 650 mg PO Q4H PRN cap 10/07/21 [History Last Taken Unknown] docusate sodium 100 mg capsule 100 mg PO BID PRN 10/07/21 [History Last Taken Unknown] doxycycline hyclate 50 mg tablet 50 mg PO DAILY 10/07/21 [History Last Taken Unknown] fexofenadine 180 mg tablet 180 mg PO DAILY PRN 10/07/21 [History Last Taken Unknown] magnesium hydroxide 400 mg/5 mL oral suspension 30 ml PO DAILY PRN ml 10/07/21 [History Last Taken Unknown] Allergy/AdvReac Type Severity Reaction Status Date / Time penicillin V Allergy Mild hives Verified 11/19/21 00:16 codeine AdvReac Mild upset Verified 11/19/21 00:16 stomach divalproex sodium AdvReac Other Verified 11/19/21 00:16 [From Depakote] haloperidol [From Haldol] AdvReac Other Verified 11/19/21 00:16 pecans Allergy Mild stomach Uncoded 11/19/21 00:16 cramps Family History Brother Diabetes Mother Heart disease Sister Heart disease Surgical History Cataract extraction status of left eye donated kidney H/O arthroscopic knee surgery History of aortic valve replacement with bioprosthetic valve History of cataract surgery History of cholecystectomy History of kidney donation History of left common carotid artery stent placement (04/06/18) History of left heart catheterization (07/19/18) History of right common carotid artery stent placement (05/25/18) History of right nephrectomy (1982) left shoulder surgery Status post arthroscopy of left knee Status post emergency tracheotomy for assistance in breathing Status post left foot surgery Social History Smoking Status: Former smoker Tobacco: How many years used: 10 how long ago did patient quit smoking: About 50yrs second hand exposure: No alcohol intake: never substance use type: does not use seatbelt use: always ROS ROS ED ROS Narrative Loose stools. Review of Systems ROS Unobtainable: Denies due to encephalopathy Constitutional Constitutional ED: Reports fever(s) Eyes Eyes: Denies change in vision ENT ENT ED: Denies ear pain Cardiovascular Cardiovascular: Denies chest pain Respiratory/Chest Respiratory/Chest: Denies cough, dyspnea or sputum Gastrointestinal Gastrointestinal: Reports diarrhea; Denies abdominal pain, nausea or vomiting Genitourinary Genitourinary ED: Denies dysuria Musculoskeletal Musculoskeletal: Denies myalgias Integumentary Denies rash Neurologic Neurologic: Denies headache(s) Psychiatric Psychiatric: Denies depression Endocrine Endocrinology: Denies polyuria Hematologic/Lymphatic Hematologic/Lymphatic: Denies easy bruising Allergic/Immunologic Allergic/Immunologic ED: Denies urticaria EXAM Physical Exam Narrative Exam Narrative: 76-year-old male no acute distress. Initial blood pressure 95/70 2-second blood pressure 115/86. Pulse ox 94% on room air no hypoxia. Initial temperature 100.2. H EENT exam is abrasion of his right forehead right cheek. Pupils round reactive light. Posterior pharynx unremarkable. Scalp nontender. C-spine nontender. Trachea midline no lymphadenopathy. Lungs clear to auscultation bilaterally. Heart regular rhythm rate about 90 no murmur. Chest wall nontender. Abdomen soft nontender. Normal bowel sounds no peritoneal signs. Pelvic girdle intact. No shortening or rotation either hip. He has not normal electronic heat seal operator strength bilaterally. Upper and lower extremities are nontender. With normal range of motion. Back is nontender. Neurologically is awake. He is alert. He is answering questions. He is following commands. He is a limited informant due to his dementia. He has no gross motor deficits. Const Vital Signs: 11/19/21 00:10 11/19/21 00:14 11/19/21 00:19 Temperature 100.2 F H Temperature Source Oral Pulse Rate 95 Respiratory Rate 15 Respiratory Effort Normal Non-Labored Respiratory Depth Normal Respiratory Pattern Normal Blood Pressure 95/72 115/86 H Blood Pressure Mean 79 95 Pulse Ox 94 Oxygen Delivery Method Room Air Room Air 11/19/21 01:10 11/19/21 01:34 11/19/21 02:00 Temperature 99.4 F H 99.4 F H Temperature Source Oral Oral Pulse Rate 84 84 Respiratory Rate 16 Respiratory Effort Respiratory Depth Respiratory Pattern Blood Pressure 106/78 Blood Pressure Mean 87 Pulse Ox 94 95 Oxygen Delivery Method Room Air Room Air Positive well nourished and well developed; Negative for cachectic, contractures or unkempt General Appearance ED: well developed and NAD; Negative for unkempt, cachectic or contractures Nutritional Appearance: Negative for cachectic HEENT Reports normocephalic trauma; Negative for tenderness Eyes PERRL and EOMs intact bilaterally Neck full ROM, no lymphadenopathy and supple General: Negative for tenderness Chest Wall inspection of chest normal and palpation of chest normal Resp normal respiratory effort, no retractions and clear to auscultation bilaterally Auscultation: Negative for rales, rhonchi or wheezes Cardio regular rate, regular rhythm, S1 normal heart sound, S2 normal heart sound and no murmurs GI non-tender, non-distended and no masses Inspection: Negative for abdominal distention Auscultation: normoactive bowel sounds Palpation: soft; Negative for guarding or rebound tenderness present Back/Spine no CVA tenderness General Back: Negative for CVA tenderness Cervical Spine: Negative for cervical spine tenderness Thoracic Spine / Upper Back: Negative for thoracic spinal tenderness Lumbar Spine / Lower Back: Negative for lumbar spinal tenderness or paraspinal muscle tenderness Extremity normal to inspection, full ROM, no joint enlargement, no calf tenderness and no pedal edema Extremity Narrative: Nontender. Normal range of motion both upper and lower extremities. Normal electronic heat seal operator strength. Normal dorsi and plantar flexion. Neuro Sensorium / Orientation: alert, oriented to person and confused; Negative for lethargic or stuporous Motor Exam: strength 5/5 throughout Psych mental status grossly normal and thought process normal Appearance: Negative for unkempt Attitude: No agitated Mood & Affect: Negative for depressed or tearful Skin Skin Narrative: Abrasion right forehead and cheek. Nontender. No bony deformity. No significant swelling. No bruising. Lesions: no lesions and No lesion noted Rashes: no rashes and No rashes noted Trauma: abrasion; Negative for laceration MDM MDM MDM Narrative Medical decision making narrative: 76-year-old male with dementia from a residential with three falls in the last 24 hours or so. Has a low-grade temperature 100.2 and transient hypotension. She will undergo a septic work-up. Also a CAT scan of his head. And chest x-ray. Received a liter normal saline and Tylenol for his fever. Multiple repeat exams the patient's stable. His vital signs are stable. According to his he has had increasing weakness and is even having trouble transferring now. He typically does not walk but now he is having significant falls. She is requesting him to be brought in the transitional care unit for physical therapy and rehabilitation. I have spoken to the bed coordinating nurse on trupti and she will let me know the best way to accomplish that. I have gone over all the test results with the patient and his at bedside. Lab Data Attestation: I reviewed the patient's lab results. Lab results narrative: CBC shows a white count of 6. Hemoglobin 13.3 and hematocrit 39. Normal platelets. PT, INR and PTT are unremarkable. Lactic acid is 1.1. Urinalysis normal. Chest x-ray and CAT scan showed chronic changes. Electrolytes are unremarkable. BUN is 21 and creatinine is 1.9 consistent with his chronic renal insufficiency and prior values. Labs: Laboratory Results - last 24 hr 11/19/21 11/19/21 11/19/21 01:00 01:00 01:00 WBC 6.2 RBC 4.31 L Hgb 13.3 Hct 39.6 L MCV 91.9 MCH 30.9 MCHC 33.6 RDW Std Deviation 47.4 H RDW Coeff of Mally 14.1 Plt Count 234 MPV 9.5 Immature Gran % (Auto) 0.600 Neut % (Auto) 63.5 Lymph % (Auto) 15.9 L [place] % (Auto) 15.2 H Eos % (Auto) 3.7 Baso % (Auto) 1.1 H Absolute Neuts (auto) 3.9 Absolute Lymphs (auto) 0.98 Nucleated RBC % 0 PT 12.4 INR 1.0 APTT 35.9 Sodium Cancelled Potassium Cancelled Chloride Cancelled Carbon Dioxide Cancelled Anion Gap Cancelled BUN Cancelled Creatinine Cancelled Estim Creat Clear Calc Cancelled Est GFR (MDRD) Af Amer Cancelled Est GFR (MDRD) Non-Af Cancelled BUN/Creatinine Ratio Cancelled Glucose Cancelled Lactic Acid Calcium Cancelled Total Bilirubin Cancelled AST Cancelled ALT Cancelled Alkaline Phosphatase Cancelled Troponin I High Sens Cancelled Total Protein Cancelled Albumin Cancelled Globulin Cancelled Albumin/Globulin Ratio Cancelled Urine Color Urine Clarity Urine pH Ur Specific [place] Urine Protein Urine Glucose (UA) Urine Ketones Urine Occult Blood Urine Nitrite Urine Bilirubin Urine Urobilinogen Ur Leukocyte Esterase Urine RBC Urine WBC Ur Squamous Epith Cells Urine Bacteria Urine Mucus 11/19/21 11/19/21 11/19/21 01:00 01:38 01:54 WBC RBC Hgb Hct MCV MCH MCHC RDW Std Deviation RDW Coeff of Mally Plt Count MPV Immature Gran % (Auto) Neut % (Auto) Lymph % (Auto) [place] % (Auto) Eos % (Auto) Baso % (Auto) Absolute Neuts (auto) Absolute Lymphs (auto) Nucleated RBC % PT INR APTT Sodium 139 Potassium 4.5 Chloride 110 H Carbon Dioxide 22.0 Anion Gap 7 BUN 21 H Creatinine 1.90 H Estim Creat Clear Calc 32.56 Est GFR (MDRD) Af Amer 44 L Est GFR (MDRD) Non-Af 37 L BUN/Creatinine Ratio 11.1 Glucose 114 H Lactic Acid 1.1 Calcium 9.0 Total Bilirubin 0.30 AST 36 ALT 47 Alkaline Phosphatase 127 H Troponin I High Sens Total Protein 7.9 Albumin 3.5 Globulin 4.4 H Albumin/Globulin Ratio 0.8 L Urine Color Yellow Urine Clarity Clear Urine pH 6.0 Ur Specific [place] 1.010 Urine Protein 30 H Urine Glucose (UA) Normal Urine Ketones Negative Urine Occult Blood Negative Urine Nitrite Negative Urine Bilirubin Negative Urine Urobilinogen Normal Ur Leukocyte Esterase Negative Urine RBC 0 SEEN Urine WBC 0 SEEN Ur Squamous Epith Cells 0 SEEN Urine Bacteria 0 SEEN Urine Mucus 0 SEEN Radiography Diagnostic Testing: Clinical Impression(s) from Imaging Studies Chest X-Ray 11/19/21 00:34 IMPRESSION: Degenerative changes, as described above. No demonstrated acute cardiopulmonary process. Electronically Signed: Merrick Peraza MD at 1:50 EST , Brain CT 11/19/21 00:35 IMPRESSION: Chronic involutional changes of the brain. Electronically Signed: Merrick Peraza MD at 1:51 EST , Chest x-ray, portable, single view interpreted by myself shows no acute process. No infiltrate. Chronic changes. Normal cardiac silhouette. Rhythm Strip Rhythm Strip: Sinus Rhythm Rate: 94 Ectopy: None EKG Initial EKG: Attestation: I personally reviewed and interpreted this EKG as follows: Interpretation: Sinus Rhythm and No Acute Injury Pattern Comments: Normal sinus rhythm rate of 94. No acute signs of RI nor ischemia. Discharge Plan Triage Chief Complaint: Fall ED Provider: Orion Tyler Dx/Rx/DC Orders Clinical Impression: Falls, Generalized weakness, Fever, Chronic renal insufficiency Prescriptions: No Action fluoxetine 40 mg capsule 40 mg PO DAILY RF: 0 doxepin 75 mg capsule 75 mg PO DAILY RF: 0 acetaminophen 325 mg capsule 650 mg PO Q4H PRNRF: 0 clotrimazole-betamethasone 1-0.05 % cream TOPICAL RF: 0 memantine 5 mg tablet 5 mg PO BID Qty: 60 RF: 5 oxcarbazepine 300 mg tablet 300 mg PO BID Qty: 60 RF: 5 donepezil [Aricept] 10 mg tablet 10 mg PO QHS Qty: 30 RF: 5 docusate sodium 100 mg capsule 100 mg PO BID PRNRF: 0 fexofenadine [[facility] Allergy] 180 mg tablet 180 mg PO DAILY PRNRF: 0 doxycycline hyclate 50 mg tablet 50 mg PO DAILY RF: 0 magnesium hydroxide [[place] Milk of Magnesia] 400 mg/5 mL suspension 30 ml PO DAILY PRNRF: 0 aspirin 81 MG tablet,delayed release (DR/EC) 81 mg PO QODAY RF: 0 finasteride 5 MG tablet 5 mg PO DAILY Qty: 30 RF: 0 buspirone 10 mg tablet 10 mg PO TID Qty: 60 RF: 2 Primary Care Provider: Carlos Lira Chi Referrals: Carlos Lira Chi, MD [Primary Care Provider] - Disposition Disposition: Acute Care Hospital [facility]
[2021-11-19] MEDS: Acetaminophen 325 MG Tablet 650 MG PO (00:54)
[2021-11-19] MEDS: 0.9% Normal Saline 1,000 ML 999 ML IV (00:54)
[2021-11-19 01:12] LABS: Absolute Lymphocyte Count 0.98 X10^3/uL (0.83-4.51); Absolute Neutrophil Count 3.9 X10^3/uL (2.0-7.7); Basophil# 0.07 X10^3/uL; Basophil% 1.1 % (0-1); Eosinophil# 0.23 X10^3/uL; Eosinophils% 3.7 % (0-5); Hematocrit 39.6 % (40-54); Hemoglobin 13.3 g/dL (13.0-16.5); Lymphocyte # 0.98 X10^3/ul (0.83-4.51); Lymphocyte % 15.9 % (19-41); Mean Corp Hgb Conc 33.6 g/dL (32-36); Mean Corpuscular Hgb 30.9 pg (27.0-32.0); Mean Corpuscular Volume 91.9 fL (80-94); Mean Platelet Vol. 9.5 fl (6.2-12.0); Monocyte# 0.94 X10^3/uL; Monocyte% 15.2 % (0-10); NRBC Flagged by Analyzer 0 % (0-5); Neutrophil # 3.92 X10^3/uL (2.7-7.7); Neutrophil % 63.5 % (47-70); Platelet Count 234 K/mm3 (150-450); RBC Distribution Width CV 14.1 % (11.6-14.6); RBC Distribution Width SD 47.4 fl (35.1-43.9); Red Blood Count 4.31 M/mm3 (4.6-6.2); White Blood Count 6.2 K/mm3 (4.4-11.0)
[2021-11-19 01:20] LABS: Prothrombin Time (Protime)PT. 12.4 SECONDS (11.7-14.9)
[2021-11-19 01:21] LABS: Partial Thromboplast Time 35.9 Seconds (24.1-36.2)
[2021-11-19 02:00] LABS: Bacteria 0 SEEN /hpf (None Seen); Mucous, Urine 0 SEEN /hpf (<or=2+); Red Blood Cells-Urine 0 SEEN /hpf (0-5); Squamous Epithelial Cells - UA 0 SEEN /hpf (0-5); White Blood Cells 0 SEEN /hpf (0-5)
[2021-11-19 02:02] LABS: Color, Urine Yellow (Yellow); Glucose, Dipstick Normal (Normal); Ketone-Dipstick Negative (Negative); Leukocyte Esterase-Dipstick Negative /ul (Negative); Nitrite-Dipstick Negative (Negative); Occult Blood-Urine Negative /ul (Negative); Protein-Dipstick 30 mg/dl (Negative); Urine Bilirubin Dipstick Negative (Negative); Urine Clarity Clear (Clear); Urine Urobilinogen Normal (Normal)
[2021-11-19 02:03] LABS: Lactic Acid 1.1 mmol/L (0.4-1.9)
[2021-11-19 02:20] LABS: ALB/GLOB Ratio 0.8 RATIO (0.9-2.4); AST(SGOT) 36 U/L (15-37); Alanine Aminotransfer ALT/SGPT 47 U/L (16-61); Albumin, Serum 3.5 g/dL (3.2-5.0); Alkaline Phosphatase 127 U/L (45-117); Anion Gap 7 (5-15); BUN 21 mg/dL (7-18); BUN/Creat Ratio 11.1 RATIO (10-20); Chloride 110 mmol/L (98-107); EST Glomerular Filtration Rate 37 mL/min (>60); Est Glom Filt Rate - Afr Amer 44 mL/min (>60); Estimated Creatinine Clearance 32.56 ml/min; Globulin 4.4 g/dL (2.2-4.2); Glucose 114 mg/dL (74-106); Potassium 4.5 mmol/L (3.5-5.1); Protein, Total 7.9 g/dL (6.4-8.2); Sodium Level 139 mmol/L (136-145)
--- NOTE | 2021-11-19 03:12 | HP.PCM.HOS_ITS ---
[facility] - General General Date of Admission: 11/19/21 HPI Narrative GASTON FLETCHER, is a 76 M with a significant history of CKD with solitary kidney; DVT and PE but not on any anticoagulation; multiple falls; IVC filter; seizure; aortic valve replacement with bovine tissue with tracheostomy and a PEG tube replacement thereafter and subsequent reversal of tracheostomy and removal of a PEG tube; and dementia; and who is currently living at [facility] presenting to the emergency department with multiple falls. Reportedly on Thursday, November 17, 2021 patient fell 2 times. And on Thursday, May 18, 2022 patient fell 1 time. He hit his forehead with a fall. At the emergent department patient was found to have a low-grade fever. Patient's was at the bedside is requesting the patient be rehabilitated. [facility] Medical History Allergic rhinitis Altered mental status Anemia Bilateral carotid artery stenosis Bipolar 1 disorder BPH (benign prostatic hyperplasia) Chronic kidney disease CVA (cerebral vascular accident) (03/2019) Diabetes insipidus, nephrogenic Donor, kidney Encephalopathy Essential (primary) hypertension GERD (gastroesophageal reflux disease) Hip fracture, left History of DVT (deep vein thrombosis) History of pulmonary embolism History of small bowel obstruction Hyperlipidemia New onset seizure Non-rheumatic aortic stenosis Osteoarthritis Peripheral arterial occlusive disease Presence of IVC filter Seizure Thrush of mouth and esophagus Tracheostomy in place Home Medications aspirin 81 mg PO QODAY 05/08/20 [History Last Taken 05/07/20] finasteride 5 mg PO DAILY #30 tab 05/11/20 [Rx Last Taken Unknown] buspirone 10 mg PO TID #60 tab 09/18/20 [Rx Last Taken Unknown] clotrimazole-betamethasone 1 %-0.05 % topical cream gm TOPICAL 02/05/21 [History Last Taken Unknown] donepezil 10 mg tablet 10 mg PO QHS #30 tablet 02/05/21 [Rx Last Taken Unknown] memantine 5 mg tablet 5 mg PO BID #60 tab 02/05/21 [Rx Last Taken Unknown] oxcarbazepine 300 mg tablet 300 mg PO BID #60 tablet 02/05/21 [Rx Last Taken Unknown] doxepin 75 mg capsule 75 mg PO DAILY cap 04/09/21 [History Last Taken Unknown] fluoxetine 40 mg capsule 40 mg PO DAILY cap 04/09/21 [History Last Taken Unknown] acetaminophen 325 mg capsule 650 mg PO Q4H PRN cap 10/07/21 [History Last Taken Unknown] docusate sodium 100 mg capsule 100 mg PO BID PRN 10/07/21 [History Last Taken Unknown] doxycycline hyclate 50 mg tablet 50 mg PO DAILY 10/07/21 [History Last Taken Unknown] fexofenadine 180 mg tablet 180 mg PO DAILY PRN 10/07/21 [History Last Taken Unknown] magnesium hydroxide 400 mg/5 mL oral suspension 30 ml PO DAILY PRN ml 10/07/21 [History Last Taken Unknown] Allergy/AdvReac Type Severity Reaction Status Date / Time penicillin V Allergy Mild hives Verified 11/19/21 00:16 codeine AdvReac Mild upset Verified 11/19/21 00:16 stomach divalproex sodium AdvReac Other Verified 11/19/21 00:16 [From Depakote] haloperidol [From Haldol] AdvReac Other Verified 11/19/21 00:16 pecans Allergy Mild stomach Uncoded 11/19/21 00:16 cramps Family History Brother Diabetes Mother Heart disease Sister Heart disease Surgical History Cataract extraction status of left eye donated kidney H/O arthroscopic knee surgery History of aortic valve replacement with bioprosthetic valve History of cataract surgery History of cholecystectomy History of kidney donation History of left common carotid artery stent placement (04/06/18) History of left heart catheterization (07/19/18) History of right common carotid artery stent placement (05/25/18) History of right nephrectomy (1982) left shoulder surgery Status post arthroscopy of left knee Status post emergency tracheotomy for assistance in breathing Status post left foot surgery Social History Smoking Status: Former smoker Tobacco: How many years used: 10 how long ago did patient quit smoking: About 50yrs second hand exposure: No alcohol intake: never substance use type: does not use seatbelt use: always ROS ROS Narrative Constitutional: Denies fever, chills, fatigue, anorexia and change in weight Eyes: Denies blurry vision, change in eye color, change in vision, discharge from eye(s), double vision, erythema, eye pain, loss of vision or other HEENT: Denies abnormal hearing, dysphagia, ear pain, epistaxis, headache(s), hearing loss, nasal congestion, nasal discharge, post nasal drip, sinus pressure, sore throat or other Cardiovascular: Denies chest pain or palpitations. Denies dyspnea on exertion, orthopnea and paroxysmal nocturnal dyspnea Respiratory/Chest: Denies cough, excessive phlegm production, shortness of breath with exertion and wheezing Gastrointestinal: Denies abdominal pain, coffee ground emesis, constipation, diarrhea, dyspepsia, hematemesis, hematochezia, loose stools, melena, nausea, vomiting or other Genitourinary: Denies burning urination, difficulty urinating, dysuria, hematuria, nocturia, urinary frequency, urinary hesitancy, urinary incontinence, urinary urgency or other Musculoskeletal: Denies arthralgias, back pain, joint pain, joint stiffness, joint swelling, myalgias, neck pain or other Neurologic: Denies abnormal gait, abnormal speech, confusion, dizziness, focal weakness, headache(s), numbness, paresthesias, seizure-like activity, seizures, syncope, tingling, tremor(s) or other Psychiatric: Denies anxiety, depression, homicidal ideation, suicidal ideation or other Endocrinology: Denies change in body appearance, cold intolerance, excessive sweating, heat intolerance, polydipsia, polyuria or other Hematologic/Lymphatic: Denies anemia, easy bleeding, easy bruising, lymphadenopathy or other Integumentary: Denies rashes Allergic/Immunologic: Denies rhinitis, hives, eczema, asthma or other Vital Signs Vital Signs Vital Signs: 11/19/21 00:10 11/19/21 00:14 11/19/21 00:19 Temperature 100.2 F H Temperature Source Oral Pulse Rate 95 Respiratory Rate 15 Respiratory Effort Normal Non-Labored Respiratory Depth Normal Respiratory Pattern Normal Blood Pressure 95/72 115/86 H Blood Pressure Mean 79 95 Pulse Ox 94 Oxygen Delivery Method Room Air Room Air 11/19/21 01:10 11/19/21 01:34 11/19/21 02:00 Temperature 99.4 F H 99.4 F H Temperature Source Oral Oral Pulse Rate 84 84 Respiratory Rate 16 Respiratory Effort Respiratory Depth Respiratory Pattern Blood Pressure 106/78 Blood Pressure Mean 87 Pulse Ox 94 95 Oxygen Delivery Method Room Air Room Air Weight Weight: 95.4 kg Body Mass Index (BMI) 31.0 Physical Exam Narrative Physical exam: General: Well-nourished, well-developed. Head: Normocephalic, atraumatic, no tenderness Eyes: PERRLA, EOMI ENT, no trauma, moist mucous membranes, no rhinorrhea Neck: Nontender, full range of motion, no spinal tenderness, deformities, step- off CVS: Regular rate and rhythm. S1-S2 present. No murmur, gallop or rub. Respiratory : clear to auscultation bilaterally, chest wall nontender, no wheezing Abdomen: Soft, nontender, nondistended, normal bowel sounds, no masses : Deferred Back: Nontender, no CVA tenderness, no midline spinal tenderness, deformities, step-offs Extremities: Nontender full range of motion, no trauma Skin: Abrasion at right infra orbital area and right supraorbital area. Normal color. Neuro: Alert, oriented, cranial nerves II through XII grossly intact. Psychiatry: Normal mood. Normal affect. Not depressed. Not anxious. Results Lab / Micro Data Result Diagrams: 11/19/21 01:00 11/19/21 01:38 Labs: Laboratory Results - last 24 hr 11/19/21 01:00: WBC 6.2, RBC 4.31 L, Hgb 13.3, Hct 39.6 L, MCV 91.9, MCH 30.9, MCHC 33.6, RDW Std Deviation 47.4 H, RDW Coeff of Mally 14.1, Plt Count 234, MPV 9.5, Immature Gran % (Auto) 0.600, Neut % (Auto) 63.5, Lymph % (Auto) 15.9 L, Swain % (Auto) 15.2 H, Eos % (Auto) 3.7, Baso % (Auto) 1.1 H, Absolute Neuts (auto) 3.9, Absolute Lymphs (auto) 0.98, Nucleated RBC % 0 11/19/21 01:00: PT 12.4, INR 1.0, APTT 35.9 11/19/21 01:00: Sodium Cancelled, Potassium Cancelled, Chloride Cancelled, Carbon Dioxide Cancelled, Anion Gap Cancelled, BUN Cancelled, Creatinine Cancelled, Estim Creat Clear Calc Cancelled, Est GFR (MDRD) Af Amer Cancelled, Est GFR (MDRD) Non-Af Cancelled, BUN/Creatinine Ratio Cancelled, Glucose Cancelled, Calcium Cancelled, Total Bilirubin Cancelled, AST Cancelled, ALT Cancelled, Alkaline Phosphatase Cancelled, Troponin I High Sens Cancelled, Total Protein Cancelled, Albumin Cancelled, Globulin Cancelled, Albumin/Globulin Ratio Cancelled 11/19/21 01:00: Lactic Acid 1.1 11/19/21 01:38: Sodium 139, Potassium 4.5, Chloride 110 H, Carbon Dioxide 22.0, Anion Gap 7, BUN 21 H, Creatinine 1.90 H, Estim Creat Clear Calc 32.56, Est GFR (MDRD) Af Amer 44 L, Est GFR (MDRD) Non-Af 37 L, BUN/Creatinine Ratio 11.1, Glucose 114 H, Calcium 9.0, Total Bilirubin 0.30, AST 36, ALT 47, Alkaline Phosphatase 127 H, Total Protein 7.9, Albumin 3.5, Globulin 4.4 H, Albumin/Globulin Ratio 0.8 L 11/19/21 01:54: Urine Color Yellow, Urine Clarity Clear, Urine pH 6.0, Ur Specific [place] 1.010, Urine Protein 30 H, Urine Glucose (UA) Normal, Urine Ketones Negative, Urine Occult Blood Negative, Urine Nitrite Negative, Urine Bilirubin Negative, Urine Urobilinogen Normal, Ur Leukocyte Esterase Negative, Urine RBC 0 SEEN, Urine WBC 0 SEEN, Ur Squamous Epith Cells 0 SEEN, Urine Bacteria 0 SEEN, Urine Mucus 0 SEEN Micro: Microbiology 11/19/21 00:50 Mucosa - Nasopharyngeal Influenza Types A,B Direct FA (LILIA) - Final 11/19/21 00:50 Interface Orders SARS-CoV-2 Antigen (Rapid) - Final Rhythm Strip Rhythm Strip: Sinus Rhythm Rate: 94 Ectopy: None Radiology Impression Chest X-Ray 11/19/21 00:34 IMPRESSION: Degenerative changes, as described above. No demonstrated acute cardiopulmonary process. Electronically Signed: Merrick Peraza MD at 1:50 EST Reading Location ID and State: [facility] / [place] Tel , Service support , Brain CT 11/19/21 00:35 IMPRESSION: Chronic involutional changes of the brain. Electronically Signed: Merrick Peraza MD at 1:51 EST , Assessment & Plan Assessment/Plan (1) Falls: QUALIFIERS: Encounter type: initial encounter Qualified Code(s): W19.XXXA - Unspecified fall, initial encounter (2) Fever: QUALIFIERS: Fever type: unspecified Qualified Code(s): R50.9 - Fever, unspecified PLAN: Multiple falls Brain CT image was independently visualized and interpreted. I agree with radiologist interpretation of chronic involutional changes. Chest x-ray image was independently visualized and interpreted and I agree with radiologist interpretation of degenerative changes. No acute cardiopulmonary process was noted. PT and OT to work with patient. Case management consult. Check vitamin D level. Low-grade fever Work-up at the emergency department showed a fever. Received acetaminophen at the emergency department. Rapid Covid screen and influenza screen was negative. Chest x-ray was unremarkable as above. Urinalysis was unremarkable. Urine culture and blood culture was ordered emergency department; follow. Of note patient has received COVID-19 vaccination with a booster. Chest x-ray is not Covid-like. Patient lives at a assisted and with no resolution of his low-grade fever will get PCR COVID. Tylenol as needed ordered CKD stage IIIb Review of BMP shows stable CKD. Trend BMP DVT prophylaxis: Subcutaneous Lovenox ordered. Charges/Coding Visit Charges OBSV E&M: 21755 Initial observation care L3
--- NOTE | 2021-11-19 04:47 | PCS.PANDOC ---
PANDEMIC DOCUMENTATION INITIATED: Date: 06/03/2021 Time: 190
[2021-11-19] MEDS: Enoxaparin 30 MG/0.3 ML Syringe SC (07:00)
[2021-11-19 10:48] LABS: Vitamin D,25 Hydroxy 23.3 ng/mL
--- NOTE | 2021-11-19 12:45 | PCM.TXEXTCAR ---
Documented by User: Tashia Farley NP, MANAGER PERSONAL-C 11/19/21 12:54 Diet 11/19/21 03:46 Diet: Regular - General Food consistency:: Regular Liquid Consistency:: Regular/Thin Routine Orders/Code Status Enema Type: Fleetz Enema Frequency: Daily PRN Suppository Type: Dulcolax 10mg Suppository Frequency: Daily PRN Routine Lab Work: - (Weekly CBC, BMP) Code Status: DNRCC-A (No intubation) Wound(s) R side face: Wound Type: Abrasion Therapies Physical Therapy: Eval and Treat Occupational Therapy: Eval and Treat Problem/Diagnosis (1) Falls: Status: Acute (2) Fever: Status: Acute Allergies/Procedures Done in Hospital Allergies penicillin V Allergy (Mild, Verified 11/19/21 00:16) hives codeine Adverse Reaction (Mild, Verified 11/19/21 00:16) upset stomach divalproex sodium [From Depakote] Adverse Reaction (Verified 11/19/21 00:16) Other Per family, pt became very comatose on medication haloperidol [From Haldol] Adverse Reaction (Verified 11/19/21 00:16) Other Per family, pt became very comatose on medication pecans Allergy (Mild, Uncoded 11/19/21 00:16) stomach cramps Procedures: None Type of Care/Length of Stay Estimated LOS: Convalescent Care Less Than 30 days Type of Care Needed: Skilled Rehab Potential: Fair Prognosis: Fair Additional Orders/Day of Discharge H&P will serve as current which was dated: 11/19/21 Day of Discharge: 11/19/21 Dietary and Speech Recommendations Dietitian Recommendations/Changes: continue regular diet- soft foods/cut up foods as requested by pt/family. Will monitor need for ONS if PO intake further declines Discharge Plan Admission Admit Date/Time: 11/19/21 03:00 Primary Reason for Your Visit: Weakness, fall Attending Provider: Amanuel Ordoñez Primary Care Provider: Carlos Lira Chi Discharge Orders/Prescriptions Prescriptions: Continued fluoxetine 40 mg capsule 40 mg PO DAILY RF: 0 doxepin 75 mg capsule 75 mg PO DAILY RF: 0 acetaminophen 325 mg capsule 650 mg PO Q4H PRNRF: 0 clotrimazole-betamethasone 1-0.05 % cream TOPICAL RF: 0 memantine 5 mg tablet 5 mg PO BID Qty: 60 RF: 5 oxcarbazepine 300 mg tablet 300 mg PO BID Qty: 60 RF: 5 donepezil [Aricept] 10 mg tablet 10 mg PO QHS Qty: 30 RF: 5 docusate sodium 100 mg capsule 100 mg PO BID PRNRF: 0 fexofenadine [[facility] Allergy] 180 mg tablet 180 mg PO DAILY PRNRF: 0 doxycycline hyclate 50 mg tablet 50 mg PO DAILY RF: 0 magnesium hydroxide [[place] Milk of Magnesia] 400 mg/5 mL suspension 30 ml PO DAILY PRNRF: 0 aspirin 81 MG tablet,delayed release (DR/EC) 81 mg PO QODAY RF: 0 finasteride 5 MG tablet 5 mg PO DAILY Qty: 30 RF: 0 buspirone 10 mg tablet 10 mg PO TID Qty: 60 RF: 2 Referrals / Follow Up: Carlos Lira Chi, MD [Primary Care Provider] - In 1 Week Disposition Disposition (needs filled in before D/C Order can be placed): Long Term Facility Documented by User: Dr. Amanuel Ordoñez DO 11/19/21 14:07 Allergies/Procedures Done in Hospital Allergies penicillin V Allergy (Mild, Verified 11/19/21 00:16) hives codeine Adverse Reaction (Mild, Verified 11/19/21 00:16) upset stomach divalproex sodium [From Depakote] Adverse Reaction (Verified 11/19/21 00:16) Other Per family, pt became very comatose on medication haloperidol [From Haldol] Adverse Reaction (Verified 11/19/21 00:16) Other Per family, pt became very comatose on medication pecans Allergy (Mild, Uncoded 11/19/21 00:16) stomach cramps Discharge Plan Admission Admit Date/Time: 11/19/21 03:00 Primary Reason for Your Visit: Weakness, fall Attending Provider: Amanuel Ordoñez Primary Care Provider: Carlos Lira Chi Discharge Orders/Prescriptions Prescriptions: Continued fluoxetine 40 mg capsule 40 mg PO DAILY RF: 0 doxepin 75 mg capsule 75 mg PO DAILY RF: 0 acetaminophen 325 mg capsule 650 mg PO Q4H PRNRF: 0 clotrimazole-betamethasone 1-0.05 % cream TOPICAL RF: 0 memantine 5 mg tablet 5 mg PO BID Qty: 60 RF: 5 oxcarbazepine 300 mg tablet 300 mg PO BID Qty: 60 RF: 5 donepezil [Aricept] 10 mg tablet 10 mg PO QHS Qty: 30 RF: 5 docusate sodium 100 mg capsule 100 mg PO BID PRNRF: 0 fexofenadine [[facility] Allergy] 180 mg tablet 180 mg PO DAILY PRNRF: 0 doxycycline hyclate 50 mg tablet 50 mg PO DAILY RF: 0 magnesium hydroxide [[place] Milk of Magnesia] 400 mg/5 mL suspension 30 ml PO DAILY PRNRF: 0 aspirin 81 MG tablet,delayed release (DR/EC) 81 mg PO QODAY RF: 0 finasteride 5 MG tablet 5 mg PO DAILY Qty: 30 RF: 0 buspirone 10 mg tablet 10 mg PO TID Qty: 60 RF: 2 Referrals / Follow Up: Carlos Lira Chi, MD [Primary Care Provider] - In 1 Week Disposition Disposition (needs filled in before D/C Order can be placed): Long Term Facility
--- NOTE | 2021-11-19 12:54 | DS.PCM_ITS ---
Documented by User: Tashia Farley NP, MICRO LAB ANALYST-C 11/19/21 13:05 Providers Date of Admission: 11/19/21 Date of Discharge: 11/19/21 Primary Care Physician: Dr. Carlos Lira MD Reason For Visit: [place] Diagnosis Discharge Diagnosis (1) Falls: Status: Acute Code(s): W19.XXXA - Unspecified fall, initial encounter Qualifiers: Encounter type: initial encounter Qualified Code(s): W19.XXXA - Unspecified fall, initial encounter (2) Fever: Status: Acute Code(s): R50.9 - Fever, unspecified Qualifiers: Fever type: unspecified Qualified Code(s): R50.9 - Fever, unspecified Medications at Discharge Home Medications aspirin 81 mg PO QODAY 05/08/20 finasteride 5 mg PO DAILY #30 tab 05/11/20 buspirone 10 mg PO TID #60 tab 09/18/20 clotrimazole-betamethasone 1 %-0.05 % topical cream gm TOPICAL 02/05/21 donepezil 10 mg tablet 10 mg PO QHS #30 tablet 02/05/21 memantine 5 mg tablet 5 mg PO BID #60 tab 02/05/21 oxcarbazepine 300 mg tablet 300 mg PO BID #60 tablet 02/05/21 doxepin 75 mg capsule 75 mg PO DAILY cap 04/09/21 fluoxetine 40 mg capsule 40 mg PO DAILY cap 04/09/21 acetaminophen 325 mg capsule 650 mg PO Q4H PRN cap 10/07/21 docusate sodium 100 mg capsule 100 mg PO BID PRN 10/07/21 doxycycline hyclate 50 mg tablet 50 mg PO DAILY 10/07/21 fexofenadine 180 mg tablet 180 mg PO DAILY PRN 10/07/21 magnesium hydroxide 400 mg/5 mL oral suspension 30 ml PO DAILY PRN ml 10/07/21 Hospital Course Operations None Procedures None Summary of Care Provided Hospital Course: Patient is a 76-year-old male admitted 11/19/21 due to weakness, falls. 1. Debility with recurrent falls, low-grade fever-brain CT, chest x-ray, urinalysis unremarkable. Covid and flu negative. Patient has had ongoing fu nctional and cognitive decline. Currently resides at assisted living facility. requesting SNF/rehab. PT/OT. Unclear etiology for low-grade fever however no evidence of infection. TCU at discharge for rehab. Likely will need long- term placement. 2. Alzheimer's dementia-following with neurology. Continue baseline meds. No behavioral disturbances during admission. 3. Stage IV chronic kidney disease-at baseline. Follow labs at SNF. 4. History of CVA-on aspirin, not on statin. 5. History of seizure disorder-follows with neurology. 6. Anxiety/bipolar disorder-continue baseline medications. 7. Aortic valve stenosis status post aortic valve replacement with bioprosthetic valve-continue outpatient follow-up with cardiology. 8. History of bilateral carotid artery stenting-on aspirin, not on statin. 9. Hypertension-Stable, does not appear to be on BP regimen. 10. Hyperlipidemia-no longer on statin. Patient seen and examined prior to discharge. Physical assessment as noted above. Patient is stable for discharge with follow up recommendations as noted above. This patient was seen by NADEGE Padilla under the supervision of Dr. Ordoñez. Time spent examining patient, reviewing data and subsequent management of care: 16 Minutes Physical Exam Const no apparent distress Constitutional Narrative: Confused at baseline, underlying dementia Orientation / Consciousness: awake HEENT normocephalic and moist oral mucous membranes Eyes PERRL, EOMs intact bilaterally and conjunctivae normal Neck no lymphadenopathy Resp normal respiratory effort and clear to auscultation bilaterally Cardio regular rate, regular rhythm and no murmurs Peripheral Pulses: pulses 2+ throughout GI normal to inspection, nondistended, normoactive bowel sounds, non-tender and non-distended Extremity normal to inspection Skin no rashes or lesions noted Lesions: no lesions Rashes: no rashes Trauma: no lacerations or abrasions Neuro CN's II-XII intact bilaterally, no focal motor deficits, no sensory deficits noted and deep tendon reflexes 2+ bilaterally Psych mental status grossly normal and affect normal Weight / BMI Weight Weight: 202 lb 9.677 oz Body Mass Index (BMI) 30.8 ABG / Lab / Microbiology Data Result Diagrams: 11/19/21 01:00 11/19/21 01:38 Laboratory: Laboratory Results - last 24 hr 11/19/21 01:00: WBC 6.2, RBC 4.31 L, Hgb 13.3, Hct 39.6 L, MCV 91.9, MCH 30.9, MCHC 33.6, RDW Std Deviation 47.4 H, RDW Coeff of Mally 14.1, Plt Count 234, MPV 9.5, Immature Gran % (Auto) 0.600, Neut % (Auto) 63.5, Lymph % (Auto) 15.9 L, [place] % (Auto) 15.2 H, Eos % (Auto) 3.7, Baso % (Auto) 1.1 H, Absolute Neuts (auto) 3.9, Absolute Lymphs (auto) 0.98, Nucleated RBC % 0 11/19/21 01:00: PT 12.4, INR 1.0, APTT 35.9 11/19/21 01:00: Sodium Cancelled, Potassium Cancelled, Chloride Cancelled, Carbon Dioxide Cancelled, Anion Gap Cancelled, BUN Cancelled, Creatinine Cancelled, Estim Creat Clear Calc Cancelled, Est GFR (MDRD) Af Amer Cancelled, Est GFR (MDRD) Non-Af Cancelled, BUN/Creatinine Ratio Cancelled, Glucose Cancelled, Calcium Cancelled, Total Bilirubin Cancelled, AST Cancelled, ALT Cancelled, Alkaline Phosphatase Cancelled, Troponin I High Sens Cancelled, Total Protein Cancelled, Albumin Cancelled, Globulin Cancelled, Albumin/Globulin Ratio Cancelled 11/19/21 01:00: Lactic Acid 1.1 11/19/21 01:38: Sodium 139, Potassium 4.5, Chloride 110 H, Carbon Dioxide 22.0, Anion Gap 7, BUN 21 H, Creatinine 1.90 H, Estim Creat Clear Calc 32.56, Est GFR (MDRD) Af Amer 44 L, Est GFR (MDRD) Non-Af 37 L, BUN/Creatinine Ratio 11.1, Glucose 114 H, Calcium 9.0, Total Bilirubin 0.30, AST 36, ALT 47, Alkaline Phosphatase 127 H, Total Protein 7.9, Albumin 3.5, Globulin 4.4 H, Albumin/Globulin Ratio 0.8 L 11/19/21 01:54: Urine Color Yellow, Urine Clarity Clear, Urine pH 6.0, Ur Specific [place] 1.010, Urine Protein 30 H, Urine Glucose (UA) Normal, Urine Ketones Negative, Urine Occult Blood Negative, Urine Nitrite Negative, Urine Bilirubin Negative, Urine Urobilinogen Normal, Ur Leukocyte Esterase Negative, Urine RBC 0 SEEN, Urine WBC 0 SEEN, Ur Squamous Epith Cells 0 SEEN, Urine Bacteria 0 SEEN, Urine Mucus 0 SEEN 11/19/21 04:25: COVID-19 (DARSHAN) Not Detected 11/19/21 10:05: Vitamin D 25-Hydroxy 23.3 Microbiology: Microbiology 11/19/21 00:50 Mucosa - Nasopharyngeal Influenza Types A,B Direct FA (LILIA) - Final 11/19/21 00:50 Interface Orders SARS-CoV-2 Antigen (Rapid) - Final Radiography Diagnostic Testing: Radiology Impression Chest X-Ray 11/19/21 00:34 IMPRESSION: Degenerative changes, as described above. No demonstrated acute cardiopulmonary process. Electronically Signed: Merrick Peraza MD at 1:50 EST , Brain CT 11/19/21 00:35 IMPRESSION: Chronic involutional changes of the brain. Electronically Signed: Merrick Peraza MD at 1:51 EST , Meaningful Use Info Meaningful Use Diagnoses (Choose all that apply): None applicable Discharge Plan Admission Admit Date/Time: 11/19/21 03:00 Primary Reason for Your Visit: Weakness, fall Attending Provider: Amanuel Ordoñez Primary Care Provider: Carlos Lira Chi Discharge Orders/Prescriptions Prescriptions: Continued fluoxetine 40 mg capsule 40 mg PO DAILY RF: 0 doxepin 75 mg capsule 75 mg PO DAILY RF: 0 acetaminophen 325 mg capsule 650 mg PO Q4H PRNRF: 0 clotrimazole-betamethasone 1-0.05 % cream TOPICAL RF: 0 memantine 5 mg tablet 5 mg PO BID Qty: 60 RF: 5 oxcarbazepine 300 mg tablet 300 mg PO BID Qty: 60 RF: 5 donepezil [Aricept] 10 mg tablet 10 mg PO QHS Qty: 30 RF: 5 docusate sodium 100 mg capsule 100 mg PO BID PRNRF: 0 fexofenadine [Maria Guadalupe Allergy] 180 mg tablet 180 mg PO DAILY PRNRF: 0 doxycycline hyclate 50 mg tablet 50 mg PO DAILY RF: 0 magnesium hydroxide [[place] Milk of Magnesia] 400 mg/5 mL suspension 30 ml PO DAILY PRNRF: 0 aspirin 81 MG tablet,delayed release (DR/EC) 81 mg PO QODAY RF: 0 finasteride 5 MG tablet 5 mg PO DAILY Qty: 30 RF: 0 buspirone 10 mg tablet 10 mg PO TID Qty: 60 RF: 2 Referrals / Follow Up: Carlos Lira Chi, MD [Primary Care Provider] - In 1 Week Disposition Disposition (needs filled in before D/C Order can be placed): [facility] Facility Documented by User: Dr. Amanuel Ordoñez DO 11/19/21 14:09 Providers Date of Admission: 11/19/21 Reason For Visit: [place] Medications at Discharge Home Medications aspirin 81 mg PO QODAY 05/08/20 finasteride 5 mg PO DAILY #30 tab 05/11/20 buspirone 10 mg PO TID #60 tab 09/18/20 clotrimazole-betamethasone 1 %-0.05 % topical cream gm TOPICAL 02/05/21 donepezil 10 mg tablet 10 mg PO QHS #30 tablet 02/05/21 memantine 5 mg tablet 5 mg PO BID #60 tab 02/05/21 oxcarbazepine 300 mg tablet 300 mg PO BID #60 tablet 02/05/21 doxepin 75 mg capsule 75 mg PO DAILY cap 04/09/21 fluoxetine 40 mg capsule 40 mg PO DAILY cap 04/09/21 acetaminophen 325 mg capsule 650 mg PO Q4H PRN cap 10/07/21 docusate sodium 100 mg capsule 100 mg PO BID PRN 10/07/21 doxycycline hyclate 50 mg tablet 50 mg PO DAILY 10/07/21 fexofenadine 180 mg tablet 180 mg PO DAILY PRN 10/07/21 magnesium hydroxide 400 mg/5 mL oral suspension 30 ml PO DAILY PRN ml 10/07/21 Hospital Course Operations None Procedures None Summary of Care Provided Minutes Spent on Discharge: 20 Hospital Course: This is a 76-year-old male with known dementia presents with debility. Patient had low-grade temperatures but no infectious etiology was identified. Patient resides at assisted living but his was unable to further care for him. Patient was accepted at transitional care unit will be discharged there in stable condition. Anticipate the patient may require a long-term ECF placement depending on his course at the transitional care unit. Complicating this is patient underlying dementia. Physical Exam Const alert Resp normal respiratory effort, no retractions, no use of accessory muscles and clear to auscultation bilaterally Cardio regular rate, regular rhythm, S1 normal heart sound and S2 normal heart sound GI normal to inspection, nondistended, normoactive bowel sounds, soft to palpation and non-tender ABG / Lab / Microbiology Data Result Diagrams: 11/19/21 01:00 11/19/21 01:38 Discharge Plan Admission Admit Date/Time: 11/19/21 03:00 Primary Reason for Your Visit: Weakness, fall Attending Provider: Amanuel Ordoñez Primary Care Provider: Carlos Lira Chi Discharge Orders/Prescriptions Prescriptions: Continued fluoxetine 40 mg capsule 40 mg PO DAILY RF: 0 doxepin 75 mg capsule 75 mg PO DAILY RF: 0 acetaminophen 325 mg capsule 650 mg PO Q4H PRNRF: 0 clotrimazole-betamethasone 1-0.05 % cream TOPICAL RF: 0 memantine 5 mg tablet 5 mg PO BID Qty: 60 RF: 5 oxcarbazepine 300 mg tablet 300 mg PO BID Qty: 60 RF: 5 donepezil [Aricept] 10 mg tablet 10 mg PO QHS Qty: 30 RF: 5 docusate sodium 100 mg capsule 100 mg PO BID PRNRF: 0 fexofenadine [Maria Guadalupe Allergy] 180 mg tablet 180 mg PO DAILY PRNRF: 0 doxycycline hyclate 50 mg tablet 50 mg PO DAILY RF: 0 magnesium hydroxide [[place] Milk of Magnesia] 400 mg/5 mL suspension 30 ml PO DAILY PRNRF: 0 aspirin 81 MG tablet,delayed release (DR/EC) 81 mg PO QODAY RF: 0 finasteride 5 MG tablet 5 mg PO DAILY Qty: 30 RF: 0 buspirone 10 mg tablet 10 mg PO TID Qty: 60 RF: 2 Referrals / Follow Up: Carlos Lira Chi, MD [Primary Care Provider] - In 1 Week Disposition Disposition (needs filled in before D/C Order can be placed): [facility] Facility Charges/Coding Visit Charges OBSV E&M: 44856 Observation care discharge
--- NOTE | 2021-11-19 13:12 | CASEMGMT ---
Addendum entered by Edwige Kimbrough 11/19/21 14:14: HUGO called [facility] and let [facility] know that patient is going to [facility] for [facility] rehab. Edwige LOPEZ Addendum entered by Edwige Kimbrough 11/19/21 14:11: Patient is okay to discharge to TCU. SW notified RN. RN will call report and see when they are ready for patient. Plan: d/c to [facility] TCU under skilled level of care. Edwige LOPEZ Original Note: HUGO spoke with Cathy in TCU and they would have a bed for patient as long as his medications check out okay. HUGO spoke with patient's . Introduced self and role at [facility]. Patient's confirmed she wants patient to go to [facility] for rehab. She then wants patient to return to [facility] after TCU. SW let patient's know that TCU will have a bed for patient as long as his medications check out okay. SW will let her know. Edwige LOPEZ
--- NOTE | 2021-11-19 15:33 | CASEMGMT ---
SW called patient's and let her know that patient is getting ready to be taken over to TCU in the next few minutes. She thanked SW for letting her know. Plan: d/c to [facility] TCU under skilled level of care. Edwige LOPEZ
[2021-11-20 05:32] LABS: Absolute Neutrophil Count 3.7 X10^3/uL (2.0-7.7); Basophil# 0.07 X10^3/uL; Eosinophil# 0.32 X10^3/uL; Eosinophils% 4.6 % (0-5); Hematocrit 34.4 % (40-54); Hemoglobin 11.9 g/dL (13.0-16.5); Lymphocyte % 21.6 % (19-41); Mean Corp Hgb Conc 34.6 g/dL (32-36); Mean Corpuscular Hgb 30.7 pg (27.0-32.0); Mean Corpuscular Volume 88.7 fL (80-94); Mean Platelet Vol. 9.2 fl (6.2-12.0); Monocyte% 18.7 % (0-10); NRBC Flagged by Analyzer 0 % (0-5); Neutrophil # 3.72 X10^3/uL (2.7-7.7); Neutrophil % 53.7 % (47-70); Platelet Count 226 K/mm3 (150-450); Red Blood Count 3.88 M/mm3 (4.6-6.2); White Blood Count 6.9 K/mm3 (4.4-11.0)
[2021-11-20 06:08] LABS: Anion Gap 6 (5-15); BUN 25 mg/dL (7-18); Calcium,Total 8.7 mg/dL (8.5-10.1); Chloride 111 mmol/L (98-107); Creatinine, Serum 1.78 mg/dL (0.70-1.30); EST Glomerular Filtration Rate 40 mL/min (>60); Est Glom Filt Rate - Afr Amer 48 mL/min (>60); Estimated Creatinine Clearance 33.62 ml/min; Glucose 103 mg/dL (74-106); Potassium 4.2 mmol/L (3.5-5.1); Sodium Level 138 mmol/L (136-145)
== END 2021-11-19 12:47 | disposition skilled nursing facility (03) ==
LOC: ED 03:04 → PCU 03:25
PROVIDERS: Admitting Provider Hospitalist; Emergency Provider Emergency Medicine; PCP Family Medicine Geriatric Medicine
DX: R53.81 Other malaise (principal); G30.9 Alzheimer's disease, unspecified; F02.80 Dementia in other diseases classified elsewhere, unspecified severity, without behavioral disturbance, psychotic disturbance, mood disturbance, and anxiety; F31.9 Bipolar disorder, unspecified; N18.4 Chronic kidney disease, stage 4 (severe); G40.909 Epilepsy, unspecified, not intractable, without status epilepticus; N25.1 Nephrogenic diabetes insipidus; R50.9 Fever, unspecified; I12.9 Hypertensive chronic kidney disease with stage 1 through stage 4 chronic kidney disease, or unspecified chronic kidney disease; R53.1 Weakness; F41.9 Anxiety disorder, unspecified; E78.5 Hyperlipidemia, unspecified; Z20.822 Contact with and (suspected) exposure to COVID-19; N44.00 Torsion of testis, unspecified; M19.90 Unspecified osteoarthritis, unspecified site; K21.9 Gastro-esophageal reflux disease without esophagitis; Z79.82 Long term (current) use of aspirin; Z52.4 Kidney donor; Z87.891 Personal history of nicotine dependence; Z79.899 Other long term (current) drug therapy; Z86.711 Personal history of pulmonary embolism; Z86.718 Personal history of other venous thrombosis and embolism; Z95.3 Presence of xenogenic heart valve; R29.6 Repeated falls
CPT/HCPCS: 36415; 70450; 71045; 80048; 80053; 81001; 82306; 83605; 85025; 85610; 85730; 87040; 87086; 87426; 87635; 87804; 93005; 96360; 96361; 96372; 97802; 99218; 99285; J7030; A4216; G0378; U0003; U0005

== ENCOUNTER 2021-11-19 15:47 | Inpatient (IN) | payer MEDICARE, OTHER, SELFPAY ==
[2021-11-19 15:54] VITALS: BP 153/83; PULSE 88; RESP 20; TEMP 36.3; O2SAT 97; BMI 32.8
--- NOTE | 2021-11-19 16:43 | NURSING ---
CALLED [facility] AND SPOKE WITH SARIKA. COVID VACCINE WAS RECEIVED 10/24/20 AND 11/16/20. SHE IS GOING TO FAX VACCINE CARD. ALSO, LOTRISONE CREAM TO APPLIED TO FACE
--- NOTE | 2021-11-19 17:55 | NURSING ---
DR WANG AWARE OF NO STOP DATE ON DOXYCYCLINE. STATES IT'S FOR FACIAL ROSACEA. NO N.O.
[2021-11-19 18:47] VITALS: PULSE 101; RESP 18; O2SAT 94
[2021-11-19] MEDS: Doxepin Hcl 25 MG Capsule 75 MG PO (19:46)
[2021-11-19] MEDS: Memantine Hydrochloride 5 MG Tablet PO (19:46)
[2021-11-19] MEDS: OXcarbazepine 300 MG Tablet PO (19:46)
[2021-11-19] MEDS: Donepezil HCl 10 MG Tablet PO (19:46)
[2021-11-19] MEDS: busPIRone 5 MG Tablet 10 MG PO (19:46)
--- NOTE | 2021-11-19 20:23 | PCM.HP.STD ---
HPI - General General Date of Admission: 11/19/21 HPI Narrative 11/19/2021 GASTON FLETCHER, is a 76 Male who presents to [facility] Emergency Department with falls. [facility], frequent falls recently. Fever 100.2, Transient hypotension, sepsis workup started. Normal saline 1 liter IV bolus, Tylenol for fever. Increasing weakness, would like him to have inpatient rehabilitation. 11/19/2021 Admit to Hospital. covid19 negative, influenza negative, Chest X-ray negative, Urinalysis negative. Urine culture sent, Blood culture sent. 11/19/2021 Admit to TCU with debility, here for rehabilitation, strengthening, prior to disposition determination. [facility] Medical History Allergic rhinitis Altered mental status Anemia Bilateral carotid artery stenosis Bipolar 1 disorder BPH (benign prostatic hyperplasia) Chronic kidney disease CVA (cerebral vascular accident) (03/2019) Diabetes insipidus, nephrogenic Donor, kidney Encephalopathy Essential (primary) hypertension GERD (gastroesophageal reflux disease) Hip fracture, left History of DVT (deep vein thrombosis) History of pulmonary embolism History of small bowel obstruction Hyperlipidemia New onset seizure Non-rheumatic aortic stenosis Osteoarthritis Peripheral arterial occlusive disease Presence of IVC filter Seizure Thrush of mouth and esophagus Tracheostomy in place Home Medications aspirin 81 mg PO QODAY 05/08/20 [History Last Taken 05/07/20] clotrimazole-betamethasone 1 %-0.05 % topical cream 1 gm TOPICAL DAILY 02/05/21 [History Last Taken Unknown] doxepin 75 mg capsule 75 mg PO DAILY cap 04/09/21 [History Last Taken Unknown] fluoxetine 40 mg capsule 40 mg PO DAILY cap 04/09/21 [History Last Taken Unknown] acetaminophen 325 mg capsule 650 mg PO Q4H PRN PRN cap 10/07/21 [History Last Taken Unknown] docusate sodium 100 mg capsule 100 mg PO BID PRN PRN 10/07/21 [History Last Taken Unknown] doxycycline hyclate 50 mg tablet 50 mg PO DAILY 10/07/21 [History Last Taken Unknown] fexofenadine 180 mg tablet 180 mg PO DAILY PRN 10/07/21 [History Last Taken Unknown] magnesium hydroxide 400 mg/5 mL oral suspension 30 ml PO DAILY PRN PRN ml 10/07/21 [History Last Taken Unknown] buspirone 10 mg PO TID 11/19/21 [History Last Taken Unknown] donepezil [Aricept] 10 mg PO QHS 11/19/21 [History Last Taken Unknown] finasteride 5 mg PO DAILY 11/19/21 [History Last Taken Unknown] memantine 5 mg PO BID 11/19/21 [History Last Taken Unknown] oxcarbazepine 300 mg PO BID 11/19/21 [History Last Taken Unknown] Allergy/AdvReac Type Severity Reaction Status Date / Time penicillin V Allergy Mild hives Verified 11/19/21 00:16 codeine AdvReac Mild upset Verified 11/19/21 00:16 stomach divalproex sodium AdvReac Other Verified 11/19/21 00:16 [From Depakote] haloperidol [From Haldol] AdvReac Other Verified 11/19/21 00:16 pecans Allergy Mild stomach Uncoded 11/19/21 00:16 cramps Family History Brother Diabetes Mother Heart disease Sister Heart disease Surgical History Cataract extraction status of left eye donated kidney H/O arthroscopic knee surgery History of aortic valve replacement with bioprosthetic valve History of cataract surgery History of cholecystectomy History of kidney donation History of left common carotid artery stent placement (04/06/18) History of left heart catheterization (07/19/18) History of right common carotid artery stent placement (05/25/18) History of right nephrectomy (1982) left shoulder surgery Status post arthroscopy of left knee Status post emergency tracheotomy for assistance in breathing Status post left foot surgery Social History (Updated 11/19/21 @ 20:[address] Carlos Lira MD) housing: assisted living facility Smoking Status: Former smoker Tobacco: How many years used: 10 how long ago did patient quit smoking: About 50yrs second hand exposure: No alcohol intake: never substance use type: does not use seatbelt use: always ROS Constitutional Constitutional: Denies chills, fever(s) or weight gain ENT HEENT: Denies headache(s), nasal congestion or nasal discharge Cardiovascular Cardiovascular: Denies chest pain or palpitations Respiratory/Chest Respiratory/Chest: Denies cough, excessive phlegm production or shortness of breath with exertion Gastrointestinal Gastrointestinal: Denies abdominal pain, nausea or vomiting Genitourinary Genitourinary: Denies dysuria Musculoskeletal Musculoskeletal: Denies joint pain or joint swelling Integumentary Integumentary: Denies rash or wounds Neurologic Neurologic: Denies focal weakness, numbness or tingling Psychiatric Psychiatric: Denies anxiety, auditory hallucinations, depression, homicidal ideation or suicidal ideation Vital Signs Vital Signs Vital Signs: 11/19/21 15:54 11/19/21 18:47 Temperature 97.3 F L Temperature Source Temporal Pulse Rate 88 101 H Pulse Rhythm Regular Pulse Strength Normal (2+) Respiratory Rate 20 H 18 Respiratory Effort Normal Non-Labored Respiratory Depth Normal Respiratory Pattern Normal Blood Pressure 153/83 H Blood Pressure Mean 106 Blood Pressure Source Monitor Blood Pressure Position Semi-Fowlers Blood Pressure Location Right Arm Pulse Ox 97 94 Oxygen Delivery Method Room Air Room Air Weight Weight: 92.079 kg Body Mass Index (BMI) 32.8 Physical Exam Const alert and oriented x3 General Appearance: cooperative HEENT normocephalic HEENT Narrative: Abrasion right mosque. Eyes PERRL and EOMs intact bilaterally Neck supple, no JVD and no carotid bruits Resp normal respiratory effort, normal air movement and clear to auscultation bilaterally Cardio regular rate and regular rhythm GI normal to inspection, nondistended, normoactive bowel sounds, non-tender and non-distended Extremity normal capillary refill General Extremity: Negative for edema Skin no rashes or lesions noted General Skin Exam: no breakdown Psych affect normal Appearance: appropriate Assessment & Plan Assessment/Plan (1) Debility: (2) Falls: QUALIFIERS: Encounter type: initial encounter Qualified Code(s): W19.XXXA - Unspecified fall, initial encounter (3) Coronary artery disease: (4) Benign prostate hyperplasia: (5) Anxiety: (6) Alzheimer disease: (7) Seizure disorder: (8) Depression: (9) Rosacea: (10) Allergic rhinitis: (11) Hypomagnesemia: PLAN: 76 year old male with below past medical history hospitalized for falls, fever, no source found so far, admitted to TCU with debility, here for rehabilitation, strengthening, prior to disposition determination. Debility - PT/OT. Dysphagia - ST. Pain - Tylenol 1000mg q6h prn pain (1-10). Bowel - Miralax 17gm daily, senna/colace 1 tablet bid, Dulcolax 10mg daily prn. Adult immunization - Administer prevnar 13, pneumovax 23, fluzone, covid19 vaccine as appropriate. DVT prophylaxis - Lovenox 40mg sc daily. CV prophylaxis - Aspirin 81mg every other day. Anxiety - Buspar 10mg tid, stable chronic [facility] use, GDR not recommended. Tinea Corporis - Lotrisone topical daily, Nystatin powder topical bid. Alzheimer Disease - Donepezil 10mg qhs, Memantine 5mg bid. Insomnia- Doxepin 75mg qhs. Rosacea - Doxycycline 100mg daily. Nutrition - Ensure Compact 118ml po tidcm. BPH - Finasteride 5mg daily. Depression - Fluoxetine 40mg daily, stable chronic [facility] use, GDR not recommended. Allergic rhinitis - Loratadine 10mg daily prn.
--- NOTE | 2021-11-20 01:40 | NURSING ---
During admission, Patient's stated patient doesn't have dentures, he lost them back in 2019. Patient has glasses but they are not here at facility.
--- NOTE | 2021-11-20 03:12 | NURSING ---
Made copy of COVID vaccine card and placed in chart.
[2021-11-20] MEDS: busPIRone 5 MG Tablet 10 MG PO ×3 (06:15→20:49)
[2021-11-20] MEDS: Finasteride 5 MG Tablet PO (06:16)
[2021-11-20] MEDS: Memantine Hydrochloride 5 MG Tablet PO ×2 (06:16→17:18)
[2021-11-20] MEDS: FLUoxetine 20 MG Capsule 40 MG PO (06:16)
[2021-11-20] MEDS: OXcarbazepine 300 MG Tablet PO ×2 (06:16→17:18)
[2021-11-20] MEDS: Doxycycline 100 MG CAPSULE PO (06:16)
[2021-11-20] MEDS: Clotrimazole/Betamethasone 1 Tube 1 APPLIC TOPICAL (06:19)
[2021-11-20] MEDS: Polyethylene Glycol 3350 17 GM PACKET PO (06:20)
[2021-11-20] MEDS: Senna/Docusate Sodium 1 Tablet PO ×2 (06:20→17:18)
[2021-11-20] MEDS: Enoxaparin 30 MG/0.3 ML Syringe SC (06:20)
[2021-11-20] MEDS: Nystatin Powder 15gm Bottle 1 APPLIC TOPICAL ×2 (06:26→17:24)
[2021-11-20] MEDS: Aspirin E.C. 81 MG Tablet PO (07:49)
--- NOTE | 2021-11-20 10:07 | CASEMGMT ---
Social Work SW met w/pt in room, asked some initial questions, completed BIMS(7). SW did not review code status or MOLST given pt's diagnosis of Alzheimer's Dementia. SW then called , verified pt is here from [facility]. confirms plan is for pt to return to [place] at discharge. She states pt uses a wheelchair at baseline, pt does not have a shower chair or raised toilet seat. SW explained that we can assist with getting this DME ordered if needed at discharge. also mentioned she has wondered if pt has Parkinson's. Communication to physician. SW did let know there will be a plan of care meeting next week, she will be contacted as to when this meeting will occur. SW will continue to follow for appropriate discharge plan. SONDRA Lopez
[2021-11-20 13:28] VITALS: BP 104/67; PULSE 90; RESP 17; TEMP 36.9; O2SAT 91
--- NOTE | 2021-11-20 14:29 | CHAPLAIN ---
Type of Pastoral Visit _x__ Initial Visit ___ Follow-up Visit ___ On-call Visit ___ General Patient Visit ___ Spiritual Assessment ___ Family Conference ___ Bereavement ___ Rapid Response ___ Code Blue ___ Other (describe below) Pastoral Care Referral From ___ Patient _x__ Family ___ Nurse ___ Physician ___ Melter Supervisor ___ Mathematical Statistician ___ Other (describe below) Sacrament/Intervention ___ Active listening ___ Anointing ___ Religious ___ Bereavement ___ Communion ___ Ambreen exploration ___ ___ Life review _x__ Prayer ___ Reconciliation ___ Sacrament of Sick _x__ Supportive presence ___ Wedding ___ Other (describe below) Pastoral Comments patient is lying down in bed; spouse is at bedside; spouse states that patient is not having a very good day but patient does answer questions and willing to have prayer and presence of this apprentice technician; patient acknowledges that he is in TCU to regain balance and strength; pt states that future visits are welcome
[2021-11-20] MEDS: Tuberculin,Purif.prot.deriv. 50 TU/ML Vial 0.1 ML ID (14:45)
--- NOTE | 2021-11-20 20:29 | PCM.PN.RX ---
Progress Note - Pharmacy Subjective: [] TCU Admission Objective: Allergies penicillin V Allergy (Mild, Verified 11/19/21 00:16) hives codeine Adverse Reaction (Mild, Verified 11/19/21 00:16) upset stomach divalproex sodium [From Depakote] Adverse Reaction (Verified 11/19/21 00:16) Other Per family, pt became very comatose on medication haloperidol [From Haldol] Adverse Reaction (Verified 11/19/21 00:16) Other Per family, pt became very comatose on medication pecans Allergy (Mild, Uncoded 11/19/21 00:16) stomach cramps Current Medications Generic Name Dose Route Start Last Admin Trade Name Freq PRN Reason Stop Dose Admin Acetaminophen 1,000 mg 11/19/21 20:40 Acetaminophen 500 Mg Tablet PO Q6H PRN PRN PAIN 1-10 Aspirin 81 mg 11/20/21 08:00 11/20/21 07:49 Aspirin E.C. 81 Mg Tablet PO 81 mg QODAY@0800 [facility] Administration Bisacodyl 10 mg 11/19/21 20:39 Bisacodyl 5 Mg Tablet PO X1 PRN Constipation Buspirone HCl 10 mg 11/19/21 22:00 11/20/21 14:43 Buspirone 5 Mg Tablet PO 10 mg TID [facility] Administration Carbidopa/Levodopa 1 tablet 11/21/21 06:45 Carbidopa/Levodopa 25/100 Tablet PO TIDAC [facility] Clotrimazole 1 applic 11/20/21 06:00 11/20/21 06:19 Clotrimazole/Betamethasone 1 Tube TOPICAL 1 appful DAILY [facility] Administration Protocol Donepezil HCl 10 mg 11/19/21 22:00 11/19/21 19:46 Donepezil Hcl 10 Mg Tablet PO 10 mg QHS [facility] Administration Doxepin HCl 75 mg 11/19/21 22:00 11/19/21 19:46 Doxepin Hcl 25 Mg Capsule PO 75 mg QHS [facility] Administration Doxycycline Monohydrate 100 mg 11/20/21 06:00 11/20/21 06:16 Doxycycline 100 Mg Capsule PO 100 mg DAILY [facility] Administration Enoxaparin Sodium 30 mg 11/20/21 06:00 11/20/21 06:20 Enoxaparin 30 Mg/0.3 Ml Syringe SC 30 mg DAILY@0600 [facility] Administration Finasteride 5 mg 11/20/21 06:00 11/20/21 06:16 Finasteride 5 Mg Tablet PO 5 mg DAILY [facility] Administration Fluoxetine HCl 40 mg 11/20/21 06:00 11/20/21 06:16 Fluoxetine 20 Mg Capsule PO 40 mg DAILY [facility] Administration Loratadine 10 mg 11/19/21 16:37 Loratadine 10 Mg Tablet PO DAILY PRN PRN ALLERGIES Memantine 5 mg 11/19/21 18:00 11/20/21 17:18 Memantine Hydrochloride 5 Mg Tablet PO 5 mg BID [facility] Administration Nystatin 1 applic 11/20/21 06:00 11/20/21 17:24 Nystatin Powder 15gm Bottle TOPICAL 1 dose BID [facility] Administration Protocol Oxcarbazepine 300 mg 11/19/21 18:00 11/20/21 17:18 Oxcarbazepine 300 Mg Tablet PO 300 mg BID [facility] Administration Polyethylene Glycol 17 gm 11/20/21 06:00 11/20/21 06:20 Polyethylene Glycol 3350 17 Gm Packet PO 17 gm DAILY [facility] Administration Senna/Docusate Sodium 1 tablet 11/20/21 06:00 11/20/21 17:18 Senna/Docusate Sodium 1 Tablet PO 1 tablet BID [facility] Administration Sodium Chloride 10 - 40 ml 11/19/21 16:16 0.9% Saline Lock 10 Ml Syringe IV UD PRN SALINE FLUSH Tuberculin PPD 0.1 ml 11/27/21 10:00 Tuberculin,Purif.Prot.Deriv. 50 Tu/Ml Vial ID 11/27/21 10:01 X1 ONE Problem List (Last Reviewed 11/19/21 @ 20:[address] Carlos Lira MD) Hypomagnesemia (Acute) Allergic rhinitis (Acute) Rosacea (Acute) Depression (Acute) Seizure disorder (Acute) Alzheimer disease (Acute) Anxiety (Acute) Benign prostate hyperplasia (Acute) Coronary artery disease (Acute) Debility (Acute) Falls (Acute) Vital Signs Temp Pulse Resp BP Pulse Ox 98.4 F 90 17 104/67 91 11/20/21 13:28 11/20/21 13:28 11/20/21 13:28 11/20/21 13:28 11/20/21 13:28 Oxygen Delivery Method Room Air Weight: 92.079 kg Body Mass Index (BMI) 32.8 Assessment/Plan: 1) Pain: Acetaminophen 1000mg po q6h prn for pain 1-10. Please continue to monitor prn usage and for signs/symptoms of increased pain. 2) BPH: Finasteride 5mg po daily. Please continue to monitor for signs/symptoms of BPH 3) Allergic Rhinitis: Loratadine 10mg po daily prn for allergies. Please continue to monitor prn usage, and for signs/symptoms of allergies. 4) Alzheimer Disease: Donepezil 10mg po qhs, Memantine 5mg po bid. Please continue to progression of Alzheimer Disease. 5) DVT Prophylaxis: Enoxaparin 3 subq once daily. Pts SrCr is 1.78, and CrCl is 34mls/min. Please continue to monitor. Pt's H+H is trending downward. Please continue to monitor. Pt's PLTs were 226 on 11/20/21 and trending downward. Please continue to monitor. *6) Pt has a listed diagnosis of Hypomagnesemia and is currently not taking a magnesium supplement. The last magnesium level in the pt's chart was from 05/17/2020. Please re evaluate the listed diagnosis of Hypomagnesemia. Thanks 7) Seizure Disorder: Oxcarbazepine 300mg po bid. Pt's Na was 138 on 11/20/21. Please continue to monitor sodium levels. 8) CV Prophylaxis: Aspirin 81mg po every other day. Please continue to monitor for signs/symptoms bruising/bleeding. Psychotropic Medications: Buspirone 10mg po tid for anxiety. See physicians note about GDR Fluoxetine 40mg po daily for depression. See physicians note about GDR Doxepin 75mg po qhs for insomnia. Note: pt does have alzheimer disease. continue to monitor nursing notes regarding information for sleep before recommending GDR. Unnecessary Medications: Bowel Regimen: Bisacodyl 10mg po x1 prn for constipation, Miralax 17gm po daily, Senna/Docusate 1 tablet po bid. Please continue to monitor prn usage, and for signs/symptoms of constipation/diarrhea. Date of Note:: 11/20/21
[2021-11-20] MEDS: Doxepin Hcl 25 MG Capsule 75 MG PO (20:49)
[2021-11-20] MEDS: Donepezil HCl 10 MG Tablet PO (21:49)
[2021-11-20 22:00] VITALS: PULSE 92; RESP 16; O2SAT 98
[2021-11-21] MEDS: OXcarbazepine 300 MG Tablet PO ×2 (05:53→17:06)
[2021-11-21] MEDS: Polyethylene Glycol 3350 17 GM PACKET PO (05:53)
[2021-11-21] MEDS: Finasteride 5 MG Tablet PO (05:53)
[2021-11-21] MEDS: Doxycycline 100 MG CAPSULE PO (05:53)
[2021-11-21] MEDS: FLUoxetine 20 MG Capsule 40 MG PO (05:53)
[2021-11-21] MEDS: Memantine Hydrochloride 5 MG Tablet PO ×2 (05:54→17:08)
[2021-11-21] MEDS: Carbidopa/Levodopa 25/100 Tablet PO ×3 (05:54→17:06)
[2021-11-21] MEDS: busPIRone 5 MG Tablet 10 MG PO ×3 (05:54→19:52)
[2021-11-21] MEDS: Senna/Docusate Sodium 1 Tablet PO ×2 (05:54→17:07)
--- NOTE | 2021-11-21 06:16 | NURSING ---
Pt. refusing Lovenox injections per order despite encouragement and education, offered x3 attempts. Pt. states I don't give a damn, I'm not taking it. Confusion noted per usual. Verbal cues required to complete tasks. Written communication left for regarding refusal.
[2021-11-21 13:05] VITALS: BP 136/91; PULSE 87; RESP 18; TEMP 36.2; O2SAT 95
--- NOTE | 2021-11-21 13:57 | NURSING ---
Called and notified , wilder, of a patient on TCU testing positive for covid.
[2021-11-21] MEDS: Nystatin Powder 15gm Bottle 1 APPLIC TOPICAL (17:09)
[2021-11-21] MEDS: Doxepin Hcl 25 MG Capsule 75 MG PO (19:52)
[2021-11-21] MEDS: Donepezil HCl 10 MG Tablet PO (20:25)
[2021-11-22] MEDS: Memantine Hydrochloride 5 MG Tablet PO ×2 (05:06→18:23)
[2021-11-22] MEDS: FLUoxetine 20 MG Capsule 40 MG PO (05:06)
[2021-11-22] MEDS: Polyethylene Glycol 3350 17 GM PACKET PO (05:07)
[2021-11-22] MEDS: Senna/Docusate Sodium 1 Tablet PO ×2 (05:07→18:23)
[2021-11-22] MEDS: busPIRone 5 MG Tablet 10 MG PO ×3 (05:07→21:01)
[2021-11-22] MEDS: OXcarbazepine 300 MG Tablet PO ×2 (05:07→18:23)
[2021-11-22] MEDS: Doxycycline 100 MG CAPSULE PO (05:07)
[2021-11-22] MEDS: Carbidopa/Levodopa 25/100 Tablet PO ×3 (05:07→18:23)
[2021-11-22] MEDS: Finasteride 5 MG Tablet PO (05:07)
[2021-11-22] MEDS: Clotrimazole/Betamethasone 1 Tube 1 APPLIC TOPICAL (05:13)
[2021-11-22] MEDS: Aspirin E.C. 81 MG Tablet PO (07:41)
[2021-11-22] MEDS: Nystatin Powder 15gm Bottle 1 APPLIC TOPICAL ×2 (07:41→18:23)
[2021-11-22 10:00] VITALS: PULSE 90; RESP 14; O2SAT 97
[2021-11-22 14:16] VITALS: BP 105/60; PULSE 80; RESP 16; TEMP 36.8; O2SAT 99
[2021-11-22] MEDS: Doxepin Hcl 25 MG Capsule 75 MG PO (21:10)
[2021-11-22] MEDS: Donepezil HCl 10 MG Tablet PO (21:10)
[2021-11-23] MEDS: Senna/Docusate Sodium 1 Tablet PO ×2 (05:52→17:47)
[2021-11-23] MEDS: FLUoxetine 20 MG Capsule 40 MG PO (05:52)
[2021-11-23] MEDS: Finasteride 5 MG Tablet PO (05:52)
[2021-11-23] MEDS: Doxycycline 100 MG CAPSULE PO (05:52)
[2021-11-23] MEDS: Carbidopa/Levodopa 25/100 Tablet PO ×3 (05:52→17:46)
[2021-11-23] MEDS: Polyethylene Glycol 3350 17 GM PACKET PO (05:52)
[2021-11-23] MEDS: OXcarbazepine 300 MG Tablet PO ×2 (05:52→17:47)
[2021-11-23] MEDS: busPIRone 5 MG Tablet 10 MG PO ×3 (05:52→21:57)
[2021-11-23] MEDS: Memantine Hydrochloride 5 MG Tablet PO ×2 (05:52→17:47)
[2021-11-23] MEDS: Clotrimazole/Betamethasone 1 Tube 1 APPLIC TOPICAL (05:53)
[2021-11-23] MEDS: Nystatin Powder 15gm Bottle 1 APPLIC TOPICAL ×2 (05:55→17:48)
[2021-11-23 10:00] VITALS: PULSE 88; RESP 18; O2SAT 91
[2021-11-23 15:00] VITALS: BP 96/60; PULSE 92; RESP 17; TEMP 36.6; O2SAT 98
[2021-11-23] MEDS: Donepezil HCl 10 MG Tablet PO (21:56)
[2021-11-23] MEDS: Doxepin Hcl 25 MG Capsule 75 MG PO (21:57)
[2021-11-24] MEDS: Clotrimazole/Betamethasone 1 Tube 1 APPLIC TOPICAL (04:56)
[2021-11-24] MEDS: Nystatin Powder 15gm Bottle 1 APPLIC TOPICAL ×2 (04:56→17:35)
[2021-11-24] MEDS: OXcarbazepine 300 MG Tablet PO ×2 (04:57→17:33)
[2021-11-24] MEDS: Doxycycline 100 MG CAPSULE PO (04:57)
[2021-11-24] MEDS: busPIRone 5 MG Tablet 10 MG PO ×3 (04:58→21:47)
[2021-11-24] MEDS: Polyethylene Glycol 3350 17 GM PACKET PO (04:58)
[2021-11-24] MEDS: Memantine Hydrochloride 5 MG Tablet PO ×2 (04:58→17:32)
[2021-11-24] MEDS: FLUoxetine 20 MG Capsule 40 MG PO (04:58)
[2021-11-24] MEDS: Senna/Docusate Sodium 1 Tablet PO ×2 (04:58→17:32)
[2021-11-24] MEDS: Finasteride 5 MG Tablet PO (04:58)
[2021-11-24] MEDS: Carbidopa/Levodopa 25/100 Tablet PO ×3 (06:03→17:32)
[2021-11-24] MEDS: Aspirin E.C. 81 MG Tablet PO (09:07)
[2021-11-24 16:00] VITALS: BP 104/51; PULSE 85; RESP 18; TEMP 36.4; O2SAT 93
[2021-11-24 21:22] VITALS: PULSE 92; RESP 16; O2SAT 94
[2021-11-24] MEDS: Doxepin Hcl 25 MG Capsule 75 MG PO (21:47)
[2021-11-24] MEDS: Donepezil HCl 10 MG Tablet PO (21:47)
[2021-11-25] MEDS: busPIRone 5 MG Tablet 10 MG PO ×3 (04:43→21:58)
[2021-11-25] MEDS: Senna/Docusate Sodium 1 Tablet PO ×2 (04:43→17:06)
[2021-11-25] MEDS: Finasteride 5 MG Tablet PO (04:43)
[2021-11-25] MEDS: Polyethylene Glycol 3350 17 GM PACKET PO (04:43)
[2021-11-25] MEDS: OXcarbazepine 300 MG Tablet PO ×2 (04:43→17:06)
[2021-11-25] MEDS: Memantine Hydrochloride 5 MG Tablet PO ×2 (04:43→17:06)
[2021-11-25] MEDS: FLUoxetine 20 MG Capsule 40 MG PO (04:44)
[2021-11-25] MEDS: Clotrimazole/Betamethasone 1 Tube 1 APPLIC TOPICAL (04:46)
[2021-11-25] MEDS: Nystatin Powder 15gm Bottle 1 APPLIC TOPICAL ×2 (04:47→17:09)
[2021-11-25] MEDS: Carbidopa/Levodopa 25/100 Tablet PO ×3 (05:47→17:06)
[2021-11-25] MEDS: Doxycycline 100 MG CAPSULE PO (05:47)
[2021-11-25 10:00] VITALS: PULSE 84; RESP 18; O2SAT 97
[2021-11-25 15:02] VITALS: BP 96/56; PULSE 70; RESP 17; TEMP 36.7; O2SAT 98
[2021-11-25] MEDS: Doxepin Hcl 25 MG Capsule 75 MG PO (21:58)
[2021-11-25] MEDS: Donepezil HCl 10 MG Tablet PO (22:05)
[2021-11-26] MEDS: OXcarbazepine 300 MG Tablet PO ×2 (05:06→17:09)
[2021-11-26] MEDS: FLUoxetine 20 MG Capsule 40 MG PO (05:07)
[2021-11-26] MEDS: Polyethylene Glycol 3350 17 GM PACKET PO (05:07)
[2021-11-26] MEDS: Carbidopa/Levodopa 25/100 Tablet PO ×3 (05:07→17:08)
[2021-11-26] MEDS: Finasteride 5 MG Tablet PO (05:07)
[2021-11-26] MEDS: busPIRone 5 MG Tablet 10 MG PO ×3 (05:07→21:18)
[2021-11-26] MEDS: Senna/Docusate Sodium 1 Tablet PO ×2 (05:07→17:09)
[2021-11-26] MEDS: Memantine Hydrochloride 5 MG Tablet PO ×2 (05:07→17:09)
[2021-11-26] MEDS: Doxycycline 100 MG CAPSULE PO (05:07)
[2021-11-26] MEDS: Nystatin Powder 15gm Bottle 1 APPLIC TOPICAL ×2 (05:11→21:17)
--- NOTE | 2021-11-26 07:23 | MDS.RN ---
Preferences for customary routine and activities MDS assessment completed
[2021-11-26] MEDS: Aspirin E.C. 81 MG Tablet PO (08:47)
[2021-11-26 13:35] VITALS: BP 96/57; PULSE 85; RESP 16; TEMP 35.9; O2SAT 95
--- NOTE | 2021-11-26 17:27 | CASEMGMT ---
Social Work BIMS and PHQ-9 completed for MDS assessment. Alejandra Kebede, NETWORK STRATEGIST OPERATIONS BUSINESS PARTNER
[2021-11-26] MEDS: Doxepin Hcl 25 MG Capsule 75 MG PO (21:18)
[2021-11-26] MEDS: Donepezil HCl 10 MG Tablet PO (21:56)
[2021-11-27] MEDS: OXcarbazepine 300 MG Tablet PO ×2 (04:35→16:51)
[2021-11-27] MEDS: Polyethylene Glycol 3350 17 GM PACKET PO (04:35)
[2021-11-27] MEDS: Doxycycline 100 MG CAPSULE PO (04:35)
[2021-11-27] MEDS: Carbidopa/Levodopa 25/100 Tablet PO ×3 (04:36→16:51)
[2021-11-27] MEDS: Senna/Docusate Sodium 1 Tablet PO ×2 (04:36→16:52)
[2021-11-27] MEDS: busPIRone 5 MG Tablet 10 MG PO ×3 (04:36→19:57)
[2021-11-27] MEDS: Memantine Hydrochloride 5 MG Tablet PO ×2 (04:36→16:52)
[2021-11-27] MEDS: Finasteride 5 MG Tablet PO (04:36)
[2021-11-27] MEDS: Nystatin Powder 15gm Bottle 1 APPLIC TOPICAL ×2 (04:47→16:55)
[2021-11-27] MEDS: FLUoxetine 20 MG Capsule 40 MG PO (04:47)
[2021-11-27 05:55] LABS: Absolute Lymphocyte Count 1.98 X10^3/uL (0.83-4.51); Absolute Neutrophil Count 3.6 X10^3/uL (2.0-7.7); Basophil# 0.11 X10^3/uL; Basophil% 1.5 % (0-1); Eosinophil# 0.55 X10^3/uL; Eosinophils% 7.5 % (0-5); Hematocrit 36.8 % (40-54); Hemoglobin 12.5 g/dL (13.0-16.5); Lymphocyte # 1.98 X10^3/ul (0.83-4.51); Mean Corpuscular Hgb 31.4 pg (27.0-32.0); Mean Corpuscular Volume 92.5 fL (80-94); Mean Platelet Vol. 9.1 fl (6.2-12.0); Monocyte# 0.86 X10^3/uL; Monocyte% 11.7 % (0-10); NRBC Flagged by Analyzer 0 % (0-5); Neutrophil # 3.62 X10^3/uL (2.7-7.7); Neutrophil % 49.4 % (47-70); Platelet Count 336 K/mm3 (150-450); RBC Distribution Width CV 13.5 % (11.6-14.6); RBC Distribution Width SD 45.7 fl (35.1-43.9); Red Blood Count 3.98 M/mm3 (4.6-6.2); White Blood Count 7.3 K/mm3 (4.4-11.0)
[2021-11-27 06:32] LABS: Anion Gap 7 (5-15); BUN 32 mg/dL (7-18); BUN/Creat Ratio 18.3 RATIO (10-20); Calcium,Total 8.9 mg/dL (8.5-10.1); Chloride 108 mmol/L (98-107); Creatinine, Serum 1.75 mg/dL (0.70-1.30); EST Glomerular Filtration Rate 40 mL/min (>60); Est Glom Filt Rate - Afr Amer 49 mL/min (>60); Glucose 102 mg/dL (74-106); Potassium 4.1 mmol/L (3.5-5.1); Sodium Level 138 mmol/L (136-145)
--- NOTE | 2021-11-27 09:08 | CASEMGMT ---
Social Work IDT met with patient and for care plan meeting. Discussed patient's progress in PT/OT/ST and nursing. Pt progressing well and back to baseline. Explained Medicare benefit. Encouraged to contact secondary insurance to ensure copay coverage. The goal is for pt to return to [facility] with . Discussed DC date for next week. SW to send updated clinicals to [facility] to ensure return. agreeable to DC 12/[address] [facility]. Referral made for PT/OT. requesting 3-in-1 commode. Referral made to [facility]. Plan: DC to [facility] 12/05, [facility] PT/OT, [facility] Alejandra Kebede, CORPORATE COUNSELOR TEST PILOT
[2021-11-27] MEDS: Tuberculin,Purif.prot.deriv. 50 TU/ML Vial 0.1 ML ID (11:09)
--- NOTE | 2021-11-27 12:46 | CASEMGMT ---
Social Work PHQ-9 and BIMS completed this date. Pt's present, SW spoke w/her in regard to frustrations she's had around care for pt. She explained pt has been in [facility], and now [place]. She spoke about frustrations she has had with inconsistent care. Support offered. SW inquired if she would like information on support groups for caregivers of loved ones with Alzheimer's. She is aware of the support groups, states she does not feel she needs this at this time. She states her frustration has been around making sure the pt has appropriate care. We spoke about how difficult this can be. SW remains available for support to pt and as needed. SONDRA Lopez
[2021-11-27 15:15] VITALS: BP 134/76; PULSE 80; RESP 16; TEMP 36.7; O2SAT 96
--- NOTE | 2021-11-27 19:41 | DS.PCM_ITS ---
Providers Date of Admission: 11/19/21 Primary Care Physician: Dr. Carlos Lira MD Reason For Visit: FREQUENT FALLS Diagnosis Discharge Diagnosis (1) Debility: Status: Acute Code(s): R53.81 - Other malaise (2) Falls: Status: Resolved Code(s): W19.XXXA - Unspecified fall, initial encounter Qualifiers: Encounter type: initial encounter Qualified Code(s): W19.XXXA - Un specified fall, initial encounter (3) Coronary artery disease: Status: Acute Code(s): I25.10 - Atherosclerotic heart disease of [place] coronary artery without angina pectoris (4) Benign prostate hyperplasia: Status: Acute Code(s): N40.0 - Benign prostatic hyperplasia without lower urinary tract symptoms (5) Anxiety: Status: Acute Code(s): F41.9 - Anxiety disorder, unspecified (6) Alzheimer disease: Status: Acute Code(s): G30.9 - Alzheimer's disease, unspecified; F02.80 - Dementia in other diseases classified elsewhere without behavioral disturbance (7) Seizure disorder: Status: Acute Code(s): G40.909 - Epilepsy, unspecified, not intractable, without status epilepticus (8) Depression: Status: Acute Code(s): F32.A - Depression, unspecified (9) Rosacea: Status: Acute Code(s): L71.9 - Rosacea, unspecified (10) Allergic rhinitis: Status: Acute Code(s): J30.9 - Allergic rhinitis, unspecified (11) Hypomagnesemia: Status: Acute Code(s): E83.42 - Hypomagnesemia Medications at Discharge Home Medications aspirin 81 mg PO QODAY 05/08/20 clotrimazole-betamethasone 1 %-0.05 % topical cream 1 gm TOPICAL DAILY 02/05/21 doxepin 75 mg capsule 75 mg PO DAILY cap 04/09/21 fluoxetine 40 mg capsule 40 mg PO DAILY cap 04/09/21 doxycycline hyclate 50 mg tablet 50 mg PO DAILY 10/07/21 buspirone 10 mg PO TID 11/19/21 donepezil [Aricept] 10 mg PO QHS 11/19/21 finasteride 5 mg PO DAILY 11/19/21 memantine 5 mg PO BID 11/19/21 oxcarbazepine 300 mg PO BID 11/19/21 fexofenadine [Maria Guadalupe Allergy] 180 mg PO DAILY PRN PRN 11/22/21 acetaminophen 1,000 mg PO Q6H PRN PRN #0 tab 11/27/21 carbidopa-levodopa 1 tab PO TIDAC 30 Days #90 tab 11/27/21 Hospital Course Operations None Procedures None Summary of Care Provided Minutes Spent on Discharge: 35 Hospital Course: 76 year old male with below past medical history hospitalized for falls, fever, no source found so far, admitted to TCU with debility, here for rehabilitation, strengthening, prior to disposition determination. Resident started on Sinemet 25/100mg tid for Parkinsonism, and it was helpful. Discharge to [facility] 12/05/2021, [facility] PT/OT, Beside [facility]. Physical Exam Const alert and oriented x3 General Appearance: cooperative HEENT normocephalic Eyes PERRL and EOMs intact bilaterally Neck supple, no JVD and no carotid bruits Resp normal respiratory effort, normal air movement and clear to auscultation bila terally Cardio regular rate and regular rhythm GI normal to inspection, nondistended, normoactive bowel sounds, non-tender and non-distended Extremity normal capillary refill General Extremity: Negative for edema Skin no rashes or lesions noted General Skin Exam: no breakdown Psych affect normal Appearance: appropriate Weight / BMI Weight Weight: 90.31 kg Body Mass Index (BMI) 32.8 ABG / Lab / Microbiology Data Result Diagrams: 11/27/21 05:29 11/27/21 05:29 Laboratory: Laboratory Results - last 24 hr 11/27/21 05:29: WBC 7.3, RBC 3.98 L, Hgb 12.5 L, Hct 36.8 L, MCV 92.5, MCH 31.4, MCHC 34.0, RDW Std Deviation 45.7 H, RDW Coeff of Mally 13.5, Plt Count 336, MPV 9.1, Immature Gran % (Auto) 2.900 H, Neut % (Auto) 49.4, Lymph % (Auto) 27.0, Lucas % (Auto) 11.7 H, Eos % (Auto) 7.5 H, Baso % (Auto) 1.5 H, Absolute Neuts (auto) 3.6, Absolute Lymphs (auto) 1.98, Nucleated RBC % 0 11/27/21 05:29: Sodium 138, Potassium 4.1, Chloride 108 H, Carbon Dioxide 23.0, Anion Gap 7, BUN 32 H, Creatinine 1.75 H, Estim Creat Clear Calc 31.90, Est GFR (MDRD) Af Amer 49 L, Est GFR (MDRD) Non-Af 40 L, BUN/Creatinine Ratio 18.3, Glucose 102, Calcium 8.9 Microbiology: Microbiology 11/21/21 12:05 Nasal Secretion SARS-CoV-2 Antigen (Rapid) - Final D/C Instructions Discharge Diet: No restrictions Discharge Activity: Return to Normal Activity, May Shower and Use Walker Weight Bearing Status: Weight bearing as tolerated Call your doctor if you observe: Fever of 101 or Higher, Inability to urinate, Inability to have a bowel movement, Shortness of breath, Dizziness, Fainting s pells, Swelling in the ankles, Chest pain and Uncontrolled pain Additional Instructions: Discharge to [facility] 12/05/2021, [facility] PT/OT, [facility]. Meaningful Use Info Meaningful Use Diagnoses (Choose all that apply): None applicable Discharge Plan Admission Admit Date/Time: 11/19/21 15:47 Primary Reason for Your Visit: Debility. Attending Provider: Carlos Lira Chi Primary Care Provider: Carlos Lira Chi Instructions Additional Instructions / Restrictions: Discharge to [facility] 12/05/2021, [facility] Care PT/OT, Beside [facility]. Discharge Orders/Prescriptions Prescriptions: New acetaminophen 500 mg Tablet 1,000 mg PO Q6H PRN PRN (Reason: PAIN 1-10) Qty: 0 RF: 0 carbidopa-levodopa 25-100 mg Tablet 1 tab PO TIDAC 30 Days Qty: 90 RF: 11 Continued fluoxetine 40 mg capsule 40 mg PO DAILY RF: 0 doxepin 75 mg capsule 75 mg PO DAILY RF: 0 clotrimazole-betamethasone 1-0.05 % cream 1 gm TOPICAL DAILY RF: 0 doxycycline hyclate 50 mg tablet 50 mg PO DAILY RF: 0 aspirin 81 MG tablet,delayed release (DR/EC) 81 mg PO QODAY RF: 0 donepezil [Aricept] 10 mg tablet 10 mg PO QHS RF: 0 oxcarbazepine 300 mg tablet 300 mg PO BID RF: 0 buspirone 10 mg tablet 10 mg PO TID RF: 0 finasteride 5 MG tablet 5 mg PO DAILY RF: 0 memantine 5 mg tablet 5 mg PO BID RF: 0 fexofenadine [Maria Guadalupe Allergy] 180 mg Tablet 180 mg PO DAILY PRN PRN (Reason: allergies) RF: 0 Discontinued acetaminophen 325 mg capsule 650 mg PO Q4H PRN PRN (Reason: PAIN 1-10) RF: 0 docusate sodium 100 mg capsule 100 mg PO BID PRN PRN (Reason: Constipation) RF: 0 magnesium hydroxide [[place] Milk of Magnesia] 400 mg/5 mL suspension 30 ml PO DAILY PRN PRN (Reason: Constipation) RF: 0 Referrals / Follow Up: Carlos iLra Chi, MD [Primary Care Provider] - Disposition Disposition (needs filled in before D/C Order can be placed): Assisted Living
--- NOTE | 2021-11-27 19:46 | TREXTCAR_ITS ---
Diet 11/23/21 10:52 Diet: Regular - General Food consistency:: Easy to Chew Liquid Consistency:: Regular/Thin Dietary Modifications:: Sodium Restricted Type of Dietary Supplement:: 120 ml ensure clear tid Is pt able to select menu?: Yes Diet Comments: CUT UP FOODS; 1/2 cup orange juice 1x/day only (breakfast) Routine Orders/Code Status Code Status: DNRCC-A (No intubation.) Wound(s) Rt eye: Wound Type: Abrasion Therapies Weight Bearing: Weight bearing as tolerated Problem/Diagnosis (1) Debility: Status: Acute (2) Falls: Status: Resolved (3) Coronary artery disease: Status: Acute (4) Benign prostate hyperplasia: Status: Acute (5) Anxiety: Status: Acute (6) Alzheimer disease: Status: Acute (7) Seizure disorder: Status: Acute (8) Depression: Status: Acute (9) Rosacea: Status: Acute (10) Allergic rhinitis: Status: Acute (11) Hypomagnesemia: Status: Acute Allergies/Procedures Done in Hospital Allergies penicillin V Allergy (Mild, Verified 11/19/21 00:16) hives codeine Adverse Reaction (Mild, Verified 11/19/21 00:16) upset stomach divalproex sodium [From Depakote] Adverse Reaction (Verified 11/19/21 00:16) Other Per family, pt became very comatose on medication haloperidol [From Haldol] Adverse Reaction (Verified 11/19/21 00:16) Other Per family, pt became very comatose on medication loratadine [From Claritin] Adverse Reaction (Verified 11/22/21 12:07) Dizziness pecans Allergy (Mild, Uncoded 11/19/21 00:16) stomach cramps Procedures: None Type of Care/Length of Stay Estimated LOS: More Than 30 Days Type of Care Needed: Group Home/Assisted Living Rehab Potential: Fair Prognosis: Fair Additional Orders/Day of Discharge Day of Discharge: 12/05/21 Dietary and Speech Recommendations Dietitian Recommendations/Changes: Will continue Regular low sodium diet - consistency per SMALLTALK DEVELOPER. Will provide 4 oz orange juice w/ breakfast Will order 120 ml ensure clear tid w/ medpass - encourage intake on days that po intake decreased Speech Linguistic Eval Summary: Cognitive evaluation to be completed 11/21/21 d/t time constraints at time of initial evaluation. Patient oriented to self and situation only - unable to orient to current month/yr despite verbal cues. Direct instruction and training on using external means such as a calendar to orient to current month/yr. OT/PT present to assist w/ transfer from bed to [facility] for dysphagia evaluation - patient asking specific questions about when DrEmilee comes to talk to pt.'s, etc. OT answered pt.'s question - pt. verbally demonstrated understanding. Given 5 min delay - pt. asking the same question and unable to recall asking it a few minutes prior. Follow Up Care Please follow up with your Primary Care Physician in: DR LIRA Discharge Plan Admission Admit Date/Time: 11/19/21 15:47 Primary Reason for Your Visit: Debility. Attending Provider: Carlos Lira Chi Primary Care Provider: Carlos Lira Chi Instructions Additional Instructions / Restrictions: Discharge to [facility] 12/05/2021, [facility] PT/OT, Beside [facility]. Discharge Orders/Prescriptions Prescriptions: New acetaminophen 500 mg Tablet 1,000 mg PO Q6H PRN PRN (Reason: PAIN 1-10) Qty: 0 RF: 0 carbidopa-levodopa 25-100 mg Tablet 1 tab PO TIDAC 30 Days Qty: 90 RF: 11 Continued fluoxetine 40 mg capsule 40 mg PO DAILY RF: 0 doxepin 75 mg capsule 75 mg PO DAILY RF: 0 clotrimazole-betamethasone 1-0.05 % cream 1 gm TOPICAL DAILY RF: 0 doxycycline hyclate 50 mg tablet 50 mg PO DAILY RF: 0 aspirin 81 MG tablet,delayed release (DR/EC) 81 mg PO QODAY RF: 0 donepezil [Aricept] 10 mg tablet 10 mg PO QHS RF: 0 oxcarbazepine 300 mg tablet 300 mg PO BID RF: 0 buspirone 10 mg tablet 10 mg PO TID RF: 0 finasteride 5 MG tablet 5 mg PO DAILY RF: 0 memantine 5 mg tablet 5 mg PO BID RF: 0 fexofenadine [Maria Guadalupe Allergy] 180 mg Tablet 180 mg PO DAILY PRN PRN (Reason: allergies) RF: 0 Discontinued acetaminophen 325 mg capsule 650 mg PO Q4H PRN PRN (Reason: PAIN 1-10) RF: 0 docusate sodium 100 mg capsule 100 mg PO BID PRN PRN (Reason: Constipation) RF: 0 magnesium hydroxide [[place] Milk of Magnesia] 400 mg/5 mL suspension 30 ml PO DAILY PRN PRN (Reason: Constipation) RF: 0 Referrals / Follow Up: Carlos Lira Chi, MD [Primary Care Provider] - Disposition Disposition (needs filled in before D/C Order can be placed): Assisted Living
[2021-11-27] MEDS: Doxepin Hcl 25 MG Capsule 75 MG PO (19:58)
[2021-11-27] MEDS: Donepezil HCl 10 MG Tablet PO (22:14)
[2021-11-28] MEDS: Polyethylene Glycol 3350 17 GM PACKET PO (05:09)
[2021-11-28] MEDS: FLUoxetine 20 MG Capsule 40 MG PO (05:10)
[2021-11-28] MEDS: Finasteride 5 MG Tablet PO (05:10)
[2021-11-28] MEDS: OXcarbazepine 300 MG Tablet PO ×2 (05:10→16:51)
[2021-11-28] MEDS: Memantine Hydrochloride 5 MG Tablet PO ×2 (05:11→16:50)
[2021-11-28] MEDS: Doxycycline 100 MG CAPSULE PO (05:11)
[2021-11-28] MEDS: busPIRone 5 MG Tablet 10 MG PO ×3 (05:11→20:05)
[2021-11-28] MEDS: Senna/Docusate Sodium 1 Tablet PO ×2 (05:11→16:50)
[2021-11-28] MEDS: Nystatin Powder 15gm Bottle 1 APPLIC TOPICAL ×2 (05:12→20:10)
[2021-11-28] MEDS: Carbidopa/Levodopa 25/100 Tablet PO ×3 (05:14→16:49)
[2021-11-28] MEDS: Aspirin E.C. 81 MG Tablet PO (07:48)
--- NOTE | 2021-11-28 09:37 | MDS.RN ---
Information for the mds was obtained from review of the clinical record, interview of resident, staff, and direct observation of resident's care. [facility] Information Systems, TCU director, billing dept, and [facility] aware PDPM codes not generated with finalized mds assessment.
[2021-11-28 13:00] VITALS: BP 133/88; PULSE 96; RESP 18; TEMP 36.2; O2SAT 90
--- NOTE | 2021-11-28 13:15 | NURSING ---
Addendum entered by Leonarda Persaud 11/28/21 13:57: R' RESTING ON RIGHT SIDE IN BED. RESPS EVEN, UNLABORED. ALARM IN PLACE. CALL LIGHT IN REACH. WILL MONITOR. Original Note: BED PAD ALARM WAS SOUNDING. THIS NURSE AND Oniel PRETTY LPN RESPONDED QUICKLY TO FIND R' CRAWLING ON FLOOR. HE STATES HE GOT OUT OF BED AND BEGAN CRAWLING TO WHEELCHAIR TO GET HIMSELF INTO THE BATHROOM. NO INJURIES NOTED. DENIES PAIN OR HITTING HEAD. ASSISTED R' INTO WHEELCHAIR X2 INTO BATHROOM WHERE HE VOIDED/HAD BM. ASSISTED BACK INTO WHEELCHAIR AND CAME TO NURSES STATION AND ATE SNACK. CONTINUES TO DENY PAIN OR ANY FURTHER NEEDS. R' WANTED BACK INTO BED. ASSISTED BACK INTO BED. ALARM IN PLACE AND FUNCTIONING. CALL LIGHT IN REACH. DR WANG NOTIFIED, MELINDA NOTIFIED, NURSING GASFITTER AND NUTRITIONAL SERVICES DIRECTOR NOTIFIED. VS POST FALL- 133/88, 96HR, 90%RA, 97.2, 18 R. RED FALL SIGN POSTED TO DOOR. FALL BRACELET IN PLACE. R' REMAINS A+OX3, BUT CONFUSED. STATES SHE WILL BE IN THIS EVENING. WILL CONT' TO MONITOR AND FREQUENTLY ROUND.
[2021-11-28] MEDS: Doxepin Hcl 25 MG Capsule 75 MG PO (20:04)
[2021-11-28] MEDS: Donepezil HCl 10 MG Tablet PO (21:05)
[2021-11-29] MEDS: Polyethylene Glycol 3350 17 GM PACKET PO (04:56)
[2021-11-29] MEDS: busPIRone 5 MG Tablet 10 MG PO ×3 (04:57→22:16)
[2021-11-29] MEDS: Carbidopa/Levodopa 25/100 Tablet PO ×3 (04:57→17:20)
[2021-11-29] MEDS: Senna/Docusate Sodium 1 Tablet PO ×2 (04:57→17:20)
[2021-11-29] MEDS: FLUoxetine 20 MG Capsule 40 MG PO (04:57)
[2021-11-29] MEDS: Memantine Hydrochloride 5 MG Tablet PO ×2 (04:57→17:20)
[2021-11-29] MEDS: OXcarbazepine 300 MG Tablet PO ×2 (04:57→17:20)
[2021-11-29] MEDS: Finasteride 5 MG Tablet PO (04:57)
[2021-11-29] MEDS: Doxycycline 100 MG CAPSULE PO (04:57)
[2021-11-29] MEDS: Nystatin Powder 15gm Bottle 1 APPLIC TOPICAL ×2 (04:58→17:21)
[2021-11-29 13:35] VITALS: PULSE 97; RESP 16; O2SAT 94
[2021-11-29 14:29] VITALS: BP 104/73; PULSE 82; RESP 16; TEMP 36.9; O2SAT 98
[2021-11-29] MEDS: Donepezil HCl 10 MG Tablet PO (22:16)
[2021-11-29] MEDS: Doxepin Hcl 25 MG Capsule 75 MG PO (22:16)
[2021-11-30] MEDS: Polyethylene Glycol 3350 17 GM PACKET PO (04:38)
[2021-11-30] MEDS: busPIRone 5 MG Tablet 10 MG PO ×3 (04:39→23:46)
[2021-11-30] MEDS: FLUoxetine 20 MG Capsule 40 MG PO (04:39)
[2021-11-30] MEDS: Senna/Docusate Sodium 1 Tablet PO ×2 (04:39→18:02)
[2021-11-30] MEDS: Memantine Hydrochloride 5 MG Tablet PO ×2 (04:39→18:02)
[2021-11-30] MEDS: Doxycycline 100 MG CAPSULE PO (04:39)
[2021-11-30] MEDS: OXcarbazepine 300 MG Tablet PO ×2 (04:40→18:02)
[2021-11-30] MEDS: Carbidopa/Levodopa 25/100 Tablet PO ×3 (04:40→18:02)
[2021-11-30] MEDS: Finasteride 5 MG Tablet PO (04:40)
[2021-11-30] MEDS: Nystatin Powder 15gm Bottle 1 APPLIC TOPICAL ×2 (04:43→18:02)
[2021-11-30 04:44] VITALS: BP 120/67; PULSE 91
[2021-11-30] MEDS: Aspirin E.C. 81 MG Tablet PO (08:34)
[2021-11-30 15:07] VITALS: BP 95/53; PULSE 67; RESP 16; TEMP 36.7; O2SAT 91
[2021-11-30] MEDS: Doxepin Hcl 25 MG Capsule 75 MG PO (23:44)
[2021-11-30] MEDS: Donepezil HCl 10 MG Tablet PO (23:46)
[2021-12-01] MEDS: Finasteride 5 MG Tablet PO (04:59)
[2021-12-01] MEDS: Polyethylene Glycol 3350 17 GM PACKET PO (04:59)
[2021-12-01] MEDS: Senna/Docusate Sodium 1 Tablet PO ×2 (04:59→17:41)
[2021-12-01] MEDS: FLUoxetine 20 MG Capsule 40 MG PO (05:00)
[2021-12-01] MEDS: OXcarbazepine 300 MG Tablet PO ×2 (05:00→17:41)
[2021-12-01] MEDS: Doxycycline 100 MG CAPSULE PO (05:00)
[2021-12-01] MEDS: busPIRone 5 MG Tablet 10 MG PO ×3 (05:00→23:22)
[2021-12-01] MEDS: Memantine Hydrochloride 5 MG Tablet PO ×2 (05:02→17:41)
[2021-12-01] MEDS: Carbidopa/Levodopa 25/100 Tablet PO ×3 (05:03→16:15)
[2021-12-01] MEDS: Nystatin Powder 15gm Bottle 1 APPLIC TOPICAL ×2 (05:05→17:42)
--- NOTE | 2021-12-01 09:57 | NURSING ---
Pt continues to self transfer from bed to wheelchair educated pt on use of call light and risk of falls. Will continue to monitor Bed alarm on and pt in bed at this time.
[2021-12-01 16:00] VITALS: BP 96/62; PULSE 76; RESP 16; TEMP 36.4; O2SAT 93
--- NOTE | 2021-12-01 19:27 | NURSING ---
Patient's alarm sounding, patient discovered on hands and knees on floor. States he was trying to get a drink of pop. Continue education on using call light for assistance and to use w/c with ambulating. No injuries noted. Patient did not hit head. Physician, family notified.
[2021-12-01] MEDS: Doxepin Hcl 25 MG Capsule 75 MG PO (23:21)
[2021-12-01] MEDS: Donepezil HCl 10 MG Tablet PO (23:21)
[2021-12-02] MEDS: Polyethylene Glycol 3350 17 GM PACKET PO (05:25)
[2021-12-02] MEDS: FLUoxetine 20 MG Capsule 40 MG PO (05:26)
[2021-12-02] MEDS: Finasteride 5 MG Tablet PO (05:26)
[2021-12-02] MEDS: Carbidopa/Levodopa 25/100 Tablet PO ×3 (05:26→17:43)
[2021-12-02] MEDS: OXcarbazepine 300 MG Tablet PO ×2 (05:26→17:43)
[2021-12-02] MEDS: Doxycycline 100 MG CAPSULE PO (05:27)
[2021-12-02] MEDS: Memantine Hydrochloride 5 MG Tablet PO ×2 (05:27→17:43)
[2021-12-02] MEDS: busPIRone 5 MG Tablet 10 MG PO ×3 (05:27→21:26)
[2021-12-02] MEDS: Senna/Docusate Sodium 1 Tablet PO (05:27)
[2021-12-02] MEDS: Nystatin Powder 15gm Bottle 1 APPLIC TOPICAL ×2 (05:32→17:44)
[2021-12-02] MEDS: Aspirin E.C. 81 MG Tablet PO (08:31)
[2021-12-02 16:00] VITALS: BP 149/91; PULSE 84; RESP 17; TEMP 36.4; O2SAT 99
[2021-12-02] MEDS: Doxepin Hcl 25 MG Capsule 75 MG PO (21:28)
[2021-12-02] MEDS: Donepezil HCl 10 MG Tablet PO (21:45)
[2021-12-02 23:39] VITALS: PULSE 78
[2021-12-03] MEDS: Senna/Docusate Sodium 1 Tablet PO (06:03)
[2021-12-03] MEDS: FLUoxetine 20 MG Capsule 40 MG PO (06:03)
[2021-12-03] MEDS: OXcarbazepine 300 MG Tablet PO ×2 (06:03→17:27)
[2021-12-03] MEDS: Doxycycline 100 MG CAPSULE PO (06:03)
[2021-12-03] MEDS: Nystatin Powder 15gm Bottle 1 APPLIC TOPICAL ×2 (06:03→17:24)
[2021-12-03] MEDS: Polyethylene Glycol 3350 17 GM PACKET PO (06:03)
[2021-12-03] MEDS: Carbidopa/Levodopa 25/100 Tablet PO ×3 (06:03→17:24)
[2021-12-03] MEDS: Memantine Hydrochloride 5 MG Tablet PO ×2 (06:03→17:25)
[2021-12-03] MEDS: Finasteride 5 MG Tablet PO (06:03)
[2021-12-03] MEDS: busPIRone 5 MG Tablet 10 MG PO ×3 (06:05→20:04)
[2021-12-03 13:36] VITALS: BP 106/59; PULSE 87; RESP 17; TEMP 35.7; O2SAT 91
[2021-12-03 19:31] VITALS: PULSE 93; RESP 18; O2SAT 96
[2021-12-03] MEDS: Doxepin Hcl 25 MG Capsule 75 MG PO (20:03)
[2021-12-03] MEDS: Donepezil HCl 10 MG Tablet PO (20:55)
[2021-12-04 05:46] LABS: Absolute Lymphocyte Count 2.34 X10^3/uL (0.83-4.51); Absolute Neutrophil Count 3.7 X10^3/uL (2.0-7.7); Basophil# 0.09 X10^3/uL; Basophil% 1.1 % (0-1); Eosinophil# 0.51 X10^3/uL; Eosinophils% 6.5 % (0-5); Hematocrit 35.9 % (40-54); Hemoglobin 11.6 g/dL (13.0-16.5); Lymphocyte # 2.34 X10^3/ul (0.83-4.51); Lymphocyte % 29.8 % (19-41); Mean Corp Hgb Conc 32.3 g/dL (32-36); Mean Corpuscular Hgb 30.4 pg (27.0-32.0); Mean Corpuscular Volume 94.2 fL (80-94); Mean Platelet Vol. 9.5 fl (6.2-12.0); Monocyte# 1.09 X10^3/uL; Monocyte% 13.9 % (0-10); NRBC Flagged by Analyzer 0 % (0-5); Neutrophil # 3.68 X10^3/uL (2.7-7.7); Neutrophil % 46.8 % (47-70); Platelet Count 300 K/mm3 (150-450); RBC Distribution Width CV 13.8 % (11.6-14.6); RBC Distribution Width SD 47.9 fl (35.1-43.9); Red Blood Count 3.81 M/mm3 (4.6-6.2); White Blood Count 7.9 K/mm3 (4.4-11.0)
[2021-12-04] MEDS: FLUoxetine 20 MG Capsule 40 MG PO (05:55)
[2021-12-04] MEDS: Finasteride 5 MG Tablet PO (05:56)
[2021-12-04] MEDS: Senna/Docusate Sodium 1 Tablet PO ×2 (05:56→17:41)
[2021-12-04] MEDS: Memantine Hydrochloride 5 MG Tablet PO ×2 (05:56→17:41)
[2021-12-04] MEDS: Carbidopa/Levodopa 25/100 Tablet PO ×3 (05:56→16:21)
[2021-12-04] MEDS: busPIRone 5 MG Tablet 10 MG PO ×3 (05:56→22:28)
[2021-12-04] MEDS: OXcarbazepine 300 MG Tablet PO ×2 (05:56→17:41)
[2021-12-04] MEDS: Nystatin Powder 15gm Bottle 1 APPLIC TOPICAL ×2 (06:02→17:41)
[2021-12-04] MEDS: Doxycycline 100 MG CAPSULE PO (06:04)
[2021-12-04 06:10] LABS: Anion Gap 5 (5-15); BUN 30 mg/dL (7-18); BUN/Creat Ratio 15.5 RATIO (10-20); Calcium,Total 8.7 mg/dL (8.5-10.1); Chloride 111 mmol/L (98-107); Creatinine, Serum 1.93 mg/dL (0.70-1.30); EST Glomerular Filtration Rate 36 mL/min (>60); Est Glom Filt Rate - Afr Amer 44 mL/min (>60); Estimated Creatinine Clearance 28.92 ml/min; Glucose 99 mg/dL (74-106); Potassium 4.3 mmol/L (3.5-5.1); Sodium Level 139 mmol/L (136-145)
[2021-12-04] MEDS: Aspirin E.C. 81 MG Tablet PO (08:38)
--- NOTE | 2021-12-04 11:59 | CASEMGMT ---
Social Work BIMS(8) and PHQ-9(0) completed this date. SONDRA Lopez
--- NOTE | 2021-12-04 12:21 | CASEMGMT ---
Social Work requesting pt be transported via w/c. HUGO scheduled w/c transport through [facility] at 10 am. JUANY GilW
[2021-12-04] MEDS: Doxepin Hcl 25 MG Capsule 75 MG PO (22:29)
[2021-12-04] MEDS: Donepezil HCl 10 MG Tablet PO (22:29)
[2021-12-05] MEDS: Memantine Hydrochloride 5 MG Tablet PO (04:51)
[2021-12-05] MEDS: Finasteride 5 MG Tablet PO (04:51)
[2021-12-05] MEDS: OXcarbazepine 300 MG Tablet PO (04:51)
[2021-12-05] MEDS: busPIRone 5 MG Tablet 10 MG PO (04:51)
[2021-12-05] MEDS: Doxycycline 100 MG CAPSULE PO (04:51)
[2021-12-05] MEDS: FLUoxetine 20 MG Capsule 40 MG PO (04:52)
[2021-12-05] MEDS: Senna/Docusate Sodium 1 Tablet PO (04:52)
[2021-12-05 04:56] VITALS: BP 104/54; PULSE 86; RESP 16; TEMP 36.6; O2SAT 93
[2021-12-05] MEDS: Carbidopa/Levodopa 25/100 Tablet PO ×2 (06:26→10:47)
[2021-12-05] MEDS: Nystatin Powder 15gm Bottle 1 APPLIC TOPICAL (06:26)
== END 2021-12-05 11:55 | disposition home or self-care (01) | DRG 316 ==
PROVIDERS: Admitting Provider Family Medicine Geriatric Medicine; PCP Family Medicine Geriatric Medicine; Visit Provider Family Medicine Geriatric Medicine
DX: I95.89 Other hypotension (principal); G20 Parkinson's disease; F02.80 Dementia in other diseases classified elsewhere, unspecified severity, without behavioral disturbance, psychotic disturbance, mood disturbance, and anxiety; B35.4 Tinea corporis; E78.5 Hyperlipidemia, unspecified; G30.9 Alzheimer's disease, unspecified; F31.9 Bipolar disorder, unspecified; G40.909 Epilepsy, unspecified, not intractable, without status epilepticus; F41.9 Anxiety disorder, unspecified; N40.0 Benign prostatic hyperplasia without lower urinary tract symptoms; I25.10 Atherosclerotic heart disease of native coronary artery without angina pectoris; L71.9 Rosacea, unspecified; I12.9 Hypertensive chronic kidney disease with stage 1 through stage 4 chronic kidney disease, or unspecified chronic kidney disease; N18.9 Chronic kidney disease, unspecified; K21.9 Gastro-esophageal reflux disease without esophagitis; Z23 Encounter for immunization; R29.6 Repeated falls; Z87.891 Personal history of nicotine dependence; Z79.899 Other long term (current) drug therapy; Z79.82 Long term (current) use of aspirin; Z52.4 Kidney donor; Z86.718 Personal history of other venous thrombosis and embolism
CPT/HCPCS: 36415; 80048; 85025; 87426; 90732; 92507; 92526; 92611; 97110; 97116; 97162; 97166; 97530; 97535; 97802; G0009

== ENCOUNTER 2021-12-06 18:13 | Emergency (ER) | payer MEDICARE, OTHER, SELFPAY ==
[2021-12-06] VITALS (7 sets, daily range): BP systolic 101–136; BP diastolic 46–79; PULSE 87–94; RESP 18–22; TEMP 36.5–36.9; O2SAT 92–95; BMI 33.0
--- NOTE | 2021-12-06 19:10 | EX.ED.DYSGE1 ---
HPI History of Present Illness Chief Complaint: Cough Informant: patient Onset/Context/Timing Onset: Today Context: Gradual Onset Timing: Continuous Quality: Dull Location: Chest Worsened by: Nothing Relieved by: Nothing Narrative Narrative: Patient presents with cough and chest pain that began today. Patient describes his pain as dull. Patient states it is diffuse across his chest. Patient states nothing makes it better and nothing makes it worse. Patient states his cough is dry. Patient denies any sputum production. Patient admits to some subjective chills. Patient saw his primary care physician who initially gave him a prescription for Zithromax. Patient was later tested for COVID-19 which came back positive. Patient was then referred to the emergency department. [facility] Medical History Allergic rhinitis Altered mental status Anemia Bilateral carotid artery stenosis Bipolar 1 disorder BPH (benign prostatic hyperplasia) Chronic kidney disease Chronic renal insufficiency CVA (cerebral vascular accident) (03/2019) Diabetes insipidus, nephrogenic Donor, kidney Encephalopathy Essential (primary) hypertension GERD (gastroesophageal reflux disease) Hip fracture, left History of DVT (deep vein thrombosis) History of pulmonary embolism History of small bowel obstruction Hyperlipidemia New onset seizure Non-rheumatic aortic stenosis Osteoarthritis Peripheral arterial occlusive disease Presence of IVC filter Seizure Thrush of mouth and esophagus Tracheostomy in place Home Medications aspirin 81 mg PO QODAY 05/08/20 [History Last Taken 05/07/20] clotrimazole-betamethasone 1 %-0.05 % topical cream 1 gm TOPICAL DAILY 02/05/21 [History Last Taken Unknown] doxepin 75 mg capsule 75 mg PO DAILY cap 04/09/21 [History Last Taken Unknown] fluoxetine 40 mg capsule 40 mg PO DAILY cap 04/09/21 [History Last Taken Unknown] doxycycline hyclate 50 mg tablet 50 mg PO DAILY 10/07/21 [History Last Taken Unknown] buspirone 10 mg PO TID 11/19/21 [History Last Taken Unknown] donepezil [Aricept] 10 mg PO QHS 11/19/21 [History Last Taken Unknown] finasteride 5 mg PO DAILY 11/19/21 [History Last Taken Unknown] memantine 5 mg PO BID 11/19/21 [History Last Taken Unknown] oxcarbazepine 300 mg PO BID 11/19/21 [History Last Taken Unknown] fexofenadine [Maria Guadalupe Allergy] 180 mg PO DAILY PRN PRN 11/22/21 [History Last Taken Unknown] acetaminophen 1,000 mg PO Q6H PRN PRN #0 tab 11/27/21 [Rx Last Taken Unknown] carbidopa-levodopa 1 tab PO TIDAC 30 Days #90 tab 11/27/21 [Rx Last Taken Unknown] azithromycin 250 mg PO DAILY 12/06/21 [History Last Taken Unknown] Allergy/AdvReac Type Severity Reaction Status Date / Time penicillin V Allergy Mild hives Verified 11/19/21 00:16 codeine AdvReac Mild upset Verified 11/19/21 00:16 stomach divalproex sodium AdvReac Other Verified 11/19/21 00:16 [From Depakote] haloperidol [From Haldol] AdvReac Other Verified 11/19/21 00:16 loratadine [From Claritin] AdvReac Dizziness Verified 11/22/21 12:07 pecans Allergy Mild stomach Uncoded 11/19/21 00:16 cramps Family History Brother Diabetes Mother Heart disease Sister Heart disease Surgical History Cataract extraction status of left eye donated kidney H/O arthroscopic knee surgery History of aortic valve replacement with bioprosthetic valve History of cataract surgery History of cholecystectomy History of kidney donation History of left common carotid artery stent placement (04/06/18) History of left heart catheterization (07/19/18) History of right common carotid artery stent placement (05/25/18) History of right nephrectomy (1982) left shoulder surgery Status post arthroscopy of left knee Status post emergency tracheotomy for assistance in breathing Status post left foot surgery Social History housing: assisted living facility Smoking Status: Former smoker Tobacco: How many years used: 10 how long ago did patient quit smoking: About 50yrs second hand exposure: No alcohol intake: never substance use type: does not use seatbelt use: always ROS ROS ED Constitutional Constitutional ED: Reports chills and subjective; Denies fever(s) Eyes Eyes: Denies blurry vision or change in vision ENT ENT ED: Denies rhinorrhea or sore throat Cardiovascular Cardiovascular: Reports chest pain; Denies palpitations Respiratory/Chest Respiratory/Chest: Reports cough; Denies dyspnea Gastrointestinal Gastrointestinal: Denies nausea or vomiting Genitourinary Genitourinary ED: Denies dysuria or hematuria Musculoskeletal Musculoskeletal: Denies back pain or neck pain Integumentary Denies abscess or rash Neurologic Neurologic: Denies headache(s) or weakness Allergic/Immunologic Allergic/Immunologic ED: Denies mouth swelling or urticaria EXAM Physical Exam Const Vital Signs: 12/06/21 18:14 12/06/21 18:16 12/06/21 18:17 Temperature 97.7 F L 97.7 F L 97.7 F L Temperature Source Temporal Temporal Temporal Pulse Rate 94 94 94 Respiratory Rate 18 18 18 Respiratory Effort Respiratory Depth Respiratory Pattern Blood Pressure 101/70 101/70 101/70 Blood Pressure Mean 80 80 80 Pulse Ox 94 94 94 Oxygen Delivery Method Room Air Room Air Room Air 12/06/21 18:27 12/06/21 19:57 12/06/21 20:26 Temperature 97.8 F 98.4 F Temperature Source Temporal Oral Pulse Rate 87 94 Respiratory Rate 22 H 20 H Respiratory Effort Normal Non-Labored Respiratory Depth Normal Respiratory Pattern Normal Blood Pressure 110/46 L 136/69 H Blood Pressure Mean 67 91 Pulse Ox 95 94 Oxygen Delivery Method Room Air Room Air Room Air Positive well nourished and well developed General Appearance ED: well developed and NAD HEENT Reports moist mucous membranes Neck supple and no JVD Resp normal respiratory effort Auscultation: diminished lung sounds Cardio regular rate and regular rhythm GI normal to inspection, nondistended, normoactive bowel sounds and non-tender Palpation: soft Neuro oriented x3, CN's II-XII intact bilaterally and no sensory deficits noted Sensorium / Orientation: alert Motor Exam: strength 5/5 throughout Psych mental status grossly normal MDM MDM MDM Narrative Medical decision making narrative: Portable 1 view chest x-ray was obtained. On my interpretation, lung fermin are clear. There is normal cardiac silhouette. Bony thorax is normal. There is no acute process noted. Radiologist also interpreted the x-ray and agrees. CBC was within normal limits. Comprehensive metabolic profile showed a BUN of 26 and creatinine of 2.03. These are consistent with prior results. Patient's vital signs remained stable here in the emergency department. I do not feel patient needs to be admitted to the hospital at this time. Patient may be able to be discharged back to the extended care facility. Family understood and was agreeable with the plan. All questions were answered. Lab Data Attestation: I reviewed the patient's lab results. Labs: Laboratory Results - last 24 hr 12/06/21 12/06/21 19:40 20:27 WBC 8.8 RBC 4.21 L Hgb 13.1 Hct 39.4 L MCV 93.6 MCH 31.1 MCHC 33.2 RDW Std Deviation 47.6 H RDW Coeff of Mally 14.0 Plt Count 307 MPV 9.5 Immature Gran % (Auto) 1.000 H Neut % (Auto) 56.4 Lymph % (Auto) 18.8 L Kingman % (Auto) 18.7 H Eos % (Auto) 4.1 Baso % (Auto) 1.0 Absolute Neuts (auto) 5.0 Absolute Lymphs (auto) 1.65 Nucleated RBC % 0 Differential Comment Platelet Estimate ADEQUATE RBC Morphology NORM C+C Sodium 137 Potassium 4.1 Chloride 110 H Carbon Dioxide 19.0 L Anion Gap 8 BUN 26 H Creatinine 2.03 H Estim Creat Clear Calc 27.50 Est GFR (MDRD) Af Amer 41 L Est GFR (MDRD) Non-Af 34 L BUN/Creatinine Ratio 12.8 Glucose 101 Calcium 8.9 Total Bilirubin 0.20 AST 30 ALT 12 L Alkaline Phosphatase 124 H Total Protein 7.8 Albumin 3.2 Globulin 4.6 H Albumin/Globulin Ratio 0.7 L Radiography Chest X-Ray - ED: 1 View, Read by ED Physician, Read by Radiologist and Normal Diagnostic Testing: Clinical Impression(s) from Imaging Studies Chest X-Ray 12/06/21 19:20 IMPRESSION: Degenerative changes, as described above. No demonstrated acute cardiopulmonary process. Electronically Signed: Michael Rodriguez MD at 20:08 EST , Discharge Plan Triage Chief Complaint: Cough ED Provider: Amanuel Smith Dx/Rx/DC Orders Clinical Impression: COVID-19 Instructions: Coronavirus Disease 2019 (COVID-19): Overview Prescriptions: No Action fluoxetine 40 mg capsule 40 mg PO DAILY RF: 0 doxepin 75 mg capsule 75 mg PO DAILY RF: 0 clotrimazole-betamethasone 1-0.05 % cream 1 gm TOPICAL DAILY RF: 0 doxycycline hyclate 50 mg tablet 50 mg PO DAILY RF: 0 aspirin 81 MG tablet,delayed release (DR/EC) 81 mg PO QODAY RF: 0 donepezil [Aricept] 10 mg tablet 10 mg PO QHS RF: 0 oxcarbazepine 300 mg tablet 300 mg PO BID RF: 0 buspirone 10 mg tablet 10 mg PO TID RF: 0 finasteride 5 MG tablet 5 mg PO DAILY RF: 0 memantine 5 mg tablet 5 mg PO BID RF: 0 fexofenadine [Maria Guadalupe Allergy] 180 mg Tablet 180 mg PO DAILY PRN PRN (Reason: allergies) RF: 0 acetaminophen 500 mg Tablet 1,000 mg PO Q6H PRN PRN (Reason: PAIN 1-10) Qty: 0 RF: 0 carbidopa-levodopa 25-100 mg Tablet 1 tab PO TIDAC 30 Days Qty: 90 RF: 11 azithromycin 250 mg Tablet 250 mg PO DAILY RF: 0 Primary Care Provider: Carlos Lira Chi Referrals: Carlos Lira Chi, MD [Primary Care Provider] - 5-7 Days Disposition Disposition: Half-Way Facility Discharge Location: [facility]
--- NOTE | 2021-12-06 19:20 | RAD_ITS ---
STUDY: X-RAY CHEST REASON FOR EXAM: Male, 76 years old. pt states cough, frequent falls, covid positive today, hx of open heart surgery x 4 years ago TECHNIQUE: Single AP portable view of the chest. COMPARISON: November 19, 2021 FINDINGS: The lungs are clear and expanded. There is no demonstrated pleural abnormality. Sternal cerclage wires and vascular clips are present from a prior sternotomy and coronary artery bypass graft procedure (CABG). Normal heart size. Normal mediastinum and michaelle. Normal visualized pulmonary arteries. There is atherosclerotic tortuosity of the aortic arch and descending thoracic aorta. Stable osseous structures. There is no demonstrated abnormality of the visualized soft tissue structures of the upper abdomen. RAD/Chest 1 View (Portable) IMPRESSION: Degenerative changes, as described above. No demonstrated acute cardiopulmonary process. Electronically Signed: Michael Rodriguez MD at 20:08 EST ,
--- NOTE | 2021-12-06 19:56 | ED.RN ---
PER FAMILY, THE ONLY MEDICATION CHANGE SINCE D/C WAS THE ADDITION OF A Z-PACK.
[2021-12-06 20:06] LABS: ALB/GLOB Ratio 0.7 RATIO (0.9-2.4); AST(SGOT) 30 U/L (15-37); Alanine Aminotransfer ALT/SGPT 12 U/L (16-61); Albumin, Serum 3.2 g/dL (3.2-5.0); Alkaline Phosphatase 124 U/L (45-117); Anion Gap 8 (5-15); BUN 26 mg/dL (7-18); BUN/Creat Ratio 12.8 RATIO (10-20); Calcium,Total 8.9 mg/dL (8.5-10.1); Chloride 110 mmol/L (98-107); Creatinine, Serum 2.03 mg/dL (0.70-1.30); EST Glomerular Filtration Rate 34 mL/min (>60); Est Glom Filt Rate - Afr Amer 41 mL/min (>60); Globulin 4.6 g/dL (2.2-4.2); Glucose 101 mg/dL (74-106); Potassium 4.1 mmol/L (3.5-5.1); Protein, Total 7.8 g/dL (6.4-8.2); Sodium Level 137 mmol/L (136-145)
[2021-12-06 20:40] LABS: Absolute Lymphocyte Count 1.65 X10^3/uL (0.83-4.51); Basophil# 0.09 X10^3/uL; Eosinophil# 0.36 X10^3/uL; Eosinophils% 4.1 % (0-5); Hematocrit 39.4 % (40-54); Hemoglobin 13.1 g/dL (13.0-16.5); Lymphocyte # 1.65 X10^3/ul (0.83-4.51); Lymphocyte % 18.8 % (19-41); Mean Corp Hgb Conc 33.2 g/dL (32-36); Mean Corpuscular Hgb 31.1 pg (27.0-32.0); Mean Corpuscular Volume 93.6 fL (80-94); Mean Platelet Vol. 9.5 fl (6.2-12.0); Monocyte# 1.64 X10^3/uL; Monocyte% 18.7 % (0-10); NRBC Flagged by Analyzer 0 % (0-5); Neutrophil # 4.96 X10^3/uL (2.7-7.7); Neutrophil % 56.4 % (47-70); POSITIVE DIFFERENTIAL YES; Platelet Count 307 K/mm3 (150-450); RBC Distribution Width SD 47.6 fl (35.1-43.9); Red Blood Count 4.21 M/mm3 (4.6-6.2); White Blood Count 8.8 K/mm3 (4.4-11.0)
[2021-12-06 20:42] LABS: Differential Indicated SCAN CRITERIA MET
[2021-12-06 21:18] LABS: Platelet Estimate ADEQUATE (ADEQ); Red Cell Morphology NORM C+C NORMAL (NORM C&C)
== END 2021-12-06 22:20 | disposition skilled nursing facility (03) ==
PROVIDERS: Emergency Provider Emergency Medicine; PCP Family Medicine Geriatric Medicine; Visit Provider Emergency Medicine
DX: U07.1 COVID-19 (principal); F31.9 Bipolar disorder, unspecified; I73.9 Peripheral vascular disease, unspecified; G40.909 Epilepsy, unspecified, not intractable, without status epilepticus; N18.9 Chronic kidney disease, unspecified; I12.9 Hypertensive chronic kidney disease with stage 1 through stage 4 chronic kidney disease, or unspecified chronic kidney disease; E78.5 Hyperlipidemia, unspecified; Z87.891 Personal history of nicotine dependence; Z86.73 Personal history of transient ischemic attack (TIA), and cerebral infarction without residual deficits; K21.9 Gastro-esophageal reflux disease without esophagitis; Z86.718 Personal history of other venous thrombosis and embolism; Z86.711 Personal history of pulmonary embolism; Z87.19 Personal history of other diseases of the digestive system; I35.0 Nonrheumatic aortic (valve) stenosis; M19.90 Unspecified osteoarthritis, unspecified site; I65.23 Occlusion and stenosis of bilateral carotid arteries; Z95.828 Presence of other vascular implants and grafts; N40.0 Benign prostatic hyperplasia without lower urinary tract symptoms; Z79.82 Long term (current) use of aspirin; Z79.899 Other long term (current) drug therapy
CPT/HCPCS: 71045; 80053; 85025; 99282; A4216

== ENCOUNTER 2021-12-12 04:00 | Outpatient (REF) | payer MEDICARE, OTHER, SELFPAY ==
[2021-12-12 08:47] LABS: BUN 18 mg/dL (7-18); BUN/Creat Ratio 10.3 RATIO (10-20); Chloride 111 mmol/L (98-107); Creatinine, Serum 1.75 mg/dL (0.70-1.30); EST Glomerular Filtration Rate 40 mL/min (>60); Est Glom Filt Rate - Afr Amer 49 mL/min (>60); Glucose 94 mg/dL (74-106); Phosphorus 2.8 mg/dL (2.5-4.9); Potassium 4.6 mmol/L (3.5-5.1); Sodium Level 137 mmol/L (136-145)
== END 2021-12-12 23:59 | disposition home or self-care (01) ==
LOC: OLS.DANBUR 04:00
PROVIDERS: PCP Family Medicine Geriatric Medicine; Referring Provider Family Medicine Geriatric Medicine; Visit Provider Family Medicine Geriatric Medicine
DX: N40.0 Benign prostatic hyperplasia without lower urinary tract symptoms (principal); I10 Essential (primary) hypertension; E78.5 Hyperlipidemia, unspecified; I25.10 Atherosclerotic heart disease of native coronary artery without angina pectoris
CPT/HCPCS: 36415; 80069

== ENCOUNTER 2021-12-16 05:00 | Outpatient (REF) | payer MEDICARE, OTHER, SELFPAY ==
[2021-12-16 08:49] LABS: Anion Gap 5 (5-15); BUN 20 mg/dL (7-18); BUN/Creat Ratio 10.7 RATIO (10-20); Calcium,Total 9.3 mg/dL (8.5-10.1); Chloride 111 mmol/L (98-107); Creatinine, Serum 1.87 mg/dL (0.70-1.30); EST Glomerular Filtration Rate 37 mL/min (>60); Est Glom Filt Rate - Afr Amer 45 mL/min (>60); Glucose 96 mg/dL (74-106); Potassium 4.1 mmol/L (3.5-5.1); Sodium Level 139 mmol/L (136-145)
== END 2021-12-16 23:59 | disposition home or self-care (01) ==
LOC: OLS.DANBUR 05:00
PROVIDERS: PCP Family Medicine Geriatric Medicine; Visit Provider Family Medicine Geriatric Medicine
DX: N40.0 Benign prostatic hyperplasia without lower urinary tract symptoms (principal); I10 Essential (primary) hypertension; E78.5 Hyperlipidemia, unspecified
CPT/HCPCS: 36415; 80048

== ENCOUNTER 2022-01-28 14:31 | Outpatient (CLI) | payer MEDICARE, OTHER, SELFPAY ==
[2022-01-28 17:14] LABS: Absolute Lymphocyte Count 2.18 X10^3/uL (0.83-4.51); Absolute Neutrophil Count 3.6 X10^3/uL (2.0-7.7); Basophil# 0.09 X10^3/uL; Basophil% 1.3 % (0-1); Eosinophil# 0.31 X10^3/uL; Eosinophils% 4.3 % (0-5); Hematocrit 42.9 % (40-54); Lymphocyte # 2.18 X10^3/ul (0.83-4.51); Lymphocyte % 30.3 % (19-41); Mean Corp Hgb Conc 32.6 g/dL (32-36); Mean Corpuscular Hgb 30.8 pg (27.0-32.0); Mean Corpuscular Volume 94.5 fL (80-94); Mean Platelet Vol. 11.7 fl (6.2-12.0); Monocyte# 0.95 X10^3/uL; Monocyte% 13.2 % (0-10); NRBC Flagged by Analyzer 0 % (0-5); Neutrophil # 3.59 X10^3/uL (2.7-7.7); Neutrophil % 49.9 % (47-70); POSITIVE COUNT YES; Platelet Count 113 K/mm3 (150-450); RBC Distribution Width CV 13.9 % (11.6-14.6); RBC Distribution Width SD 47.9 fl (35.1-43.9); Red Blood Count 4.54 M/mm3 (4.6-6.2); White Blood Count 7.2 K/mm3 (4.4-11.0)
[2022-01-28 17:29] LABS: Differential Indicated SCAN CRITERIA MET
[2022-01-28 17:41] LABS: Differential Comment SCANNED
[2022-01-28 18:15] LABS: ALB/GLOB Ratio 0.9 RATIO (0.9-2.4); AST(SGOT) 43 U/L (15-37); Alanine Aminotransfer ALT/SGPT 34 U/L (16-61); Albumin, Serum 3.7 g/dL (3.2-5.0); Alkaline Phosphatase 101 U/L (45-117); Anion Gap 8 (5-15); BUN 24 mg/dL (7-18); BUN/Creat Ratio 12.6 RATIO (10-20); Calcium,Total 9.3 mg/dL (8.5-10.1); Chloride 106 mmol/L (98-107); EST Glomerular Filtration Rate 37 mL/min (>60); Est Glom Filt Rate - Afr Amer 44 mL/min (>60); Globulin 4.2 g/dL (2.2-4.2); Glucose 99 mg/dL (74-106); Potassium 4.6 mmol/L (3.5-5.1); Protein, Total 7.9 g/dL (6.4-8.2); Sodium Level 138 mmol/L (136-145); Thyroid Stim Hormone (TSH) 1.97 uIU/mL (0.358-3.74)
[2022-01-28 18:39] LABS: Vitamin D,25 Hydroxy 23.4 ng/mL
== END 2022-01-28 23:59 | disposition home or self-care (01) ==
LOC: POLAB3 14:32
PROVIDERS: PCP Family Medicine Geriatric Medicine; Visit Provider Family Medicine Geriatric Medicine
DX: E55.9 Vitamin D deficiency, unspecified (principal); R53.83 Other fatigue
CPT/HCPCS: 36415; 80053; 82306; 84443; 85025

== ENCOUNTER → 2022-03-03 | Outpatient (CLI) | payer MEDICARE, OTHER, SELFPAY ==
[2022-03-03 13:05] LABS: Hemoglobin 14.8 g/dL (13.0-16.5); Mean Corp Hgb Conc 34.4 g/dL (32-36); Mean Corpuscular Hgb 30.9 pg (27.0-32.0); Mean Corpuscular Volume 89.8 fL (80-94); Mean Platelet Vol. 10.6 fl (6.2-12.0); POSITIVE COUNT YES; RBC Distribution Width CV 13.2 % (11.6-14.6); RBC Distribution Width SD 43.8 fl (35.1-43.9); Red Blood Count 4.79 M/mm3 (4.6-6.2); White Blood Count 5.9 K/mm3 (4.4-11.0)
[2022-03-03 13:19] LABS: Scan Indicated on CBC? Y/N YES- FLAGS NOTED
[2022-03-03 13:37] LABS: Albumin, Serum 3.6 g/dL (3.2-5.0); BUN 22 mg/dL (7-18); BUN/Creat Ratio 12.3 RATIO (10-20); Calcium,Total 9.5 mg/dL (8.5-10.1); Chloride 106 mmol/L (98-107); Creatinine, Serum 1.79 mg/dL (0.70-1.30); EST Glomerular Filtration Rate 39 mL/min (>60); Est Glom Filt Rate - Afr Amer 48 mL/min (>60); Glucose 119 mg/dL (74-106); Phosphorus 3.2 mg/dL (2.5-4.9); Potassium 4.5 mmol/L (3.5-5.1); Sodium Level 134 mmol/L (136-145)
[2022-03-03 14:33] LABS: PTHIN 75.3 pg/mL (18.4-80.1)
== END | disposition home or self-care (01) ==
PROVIDERS: PCP Family Medicine Geriatric Medicine; Visit Provider Internal Medicine Nephrology
DX: N18.32 Chronic kidney disease, stage 3b (principal)
CPT/HCPCS: 36415; 80069; 83970; 85027

== ENCOUNTER → 2022-03-06 | Outpatient (REF) | payer SELFPAY | END | disposition home or self-care (01) | LOC: OLS.DANBUR 05:00 | PROVIDERS: PCP Family Medicine Geriatric Medicine; Visit Provider Family Medicine Geriatric Medicine | DX: N40.0 Benign prostatic hyperplasia without lower urinary tract symptoms (principal) ==

== ENCOUNTER → 2022-05-06 | Outpatient (CLI) | payer MEDICARE, OTHER, SELFPAY ==
[2022-05-06 17:17] LABS: Absolute Lymphocyte Count 2.28 X10^3/uL (0.83-4.51); Absolute Neutrophil Count 4.2 X10^3/uL (2.0-7.7); Basophil# 0.09 X10^3/uL; Basophil% 1.2 % (0-1); Eosinophil# 0.46 X10^3/uL; Eosinophils% 5.9 % (0-5); Hematocrit 39.1 % (40-54); Hemoglobin 12.5 g/dL (13.0-16.5); Lymphocyte # 2.28 X10^3/ul (0.83-4.51); Lymphocyte % 29.3 % (19-41); Mean Platelet Vol. 10.6 fl (6.2-12.0); NRBC Flagged by Analyzer 0 % (0-5); Neutrophil # 4.16 X10^3/uL (2.7-7.7); Neutrophil % 53.6 % (47-70); Platelet Count 304 K/mm3 (150-450); Red Blood Count 4.03 M/mm3 (4.6-6.2); White Blood Count 7.8 K/mm3 (4.4-11.0)
[2022-05-06 17:33] LABS: Vitamin D,25 Hydroxy 24.8 ng/mL
[2022-05-06 17:44] LABS: ALB/GLOB Ratio 0.8 RATIO (0.9-2.4); AST(SGOT) 38 U/L (15-37); Alanine Aminotransfer ALT/SGPT 20 U/L (16-61); Albumin, Serum 3.4 g/dL (3.2-5.0); Alkaline Phosphatase 91 U/L (45-117); Anion Gap 9 (5-15); BUN 27 mg/dL (7-18); BUN/Creat Ratio 14.6 RATIO (10-20); Calcium,Total 9.2 mg/dL (8.5-10.1); Chloride 106 mmol/L (98-107); Creatinine, Serum 1.85 mg/dL (0.70-1.30); EST Glomerular Filtration Rate 38 mL/min (>60); Est Glom Filt Rate - Afr Amer 46 mL/min (>60); Globulin 4.5 g/dL (2.2-4.2); Glucose 112 mg/dL (74-106); Potassium 4.5 mmol/L (3.5-5.1); Protein, Total 7.9 g/dL (6.4-8.2); Sodium Level 138 mmol/L (136-145); Thyroid Stim Hormone (TSH) 1.18 uIU/mL (0.358-3.74)
== END | disposition home or self-care (01) ==
LOC: POLAB3 14:02
PROVIDERS: PCP Family Medicine Geriatric Medicine; Visit Provider Family Medicine Geriatric Medicine
DX: E55.9 Vitamin D deficiency, unspecified (principal); R53.83 Other fatigue
CPT/HCPCS: 36415; 80053; 82306; 84443; 85025

== ENCOUNTER → 2022-08-15 | Outpatient (CLI) | payer MEDICARE, OTHER, SELFPAY ==
[2022-08-15 13:29] LABS: Absolute Lymphocyte Count 2.33 X10^3/uL (0.83-4.51); Absolute Neutrophil Count 3.6 X10^3/uL (2.0-7.7); Basophil# 0.08 X10^3/uL; Basophil% 1.1 % (0-1); Eosinophil# 0.38 X10^3/uL; Eosinophils% 5.2 % (0-5); Hematocrit 40.2 % (40-54); Hemoglobin 13.9 g/dL (13.0-16.5); Lymphocyte # 2.33 X10^3/ul (0.83-4.51); Lymphocyte % 32.1 % (19-41); Mean Corp Hgb Conc 34.6 g/dL (32-36); Mean Corpuscular Hgb 32.4 pg (27.0-32.0); Mean Corpuscular Volume 93.7 fL (80-94); Mean Platelet Vol. 9.6 fl (6.2-12.0); Monocyte# 0.81 X10^3/uL; Monocyte% 11.2 % (0-10); NRBC Flagged by Analyzer 0 % (0-5); Neutrophil # 3.59 X10^3/uL (2.7-7.7); Neutrophil % 49.6 % (47-70); Platelet Count 284 K/mm3 (150-450); RBC Distribution Width CV 13.2 % (11.6-14.6); RBC Distribution Width SD 44.8 fl (35.1-43.9); Red Blood Count 4.29 M/mm3 (4.6-6.2); White Blood Count 7.3 K/mm3 (4.4-11.0)
[2022-08-15 13:40] LABS: Anion Gap 10 (5-15); BUN 23 mg/dL (7-18); BUN/Creat Ratio 11.9 RATIO (10-20); CPK Total, Creatine Kinase 106 U/L (39-308); Calcium,Total 9.3 mg/dL (8.5-10.1); Chloride 108 mmol/L (98-107); Creatinine, Serum 1.94 mg/dL (0.70-1.30); EST Glomerular Filtration Rate 36 mL/min (>60); Est Glom Filt Rate - Afr Amer 43 mL/min (>60); Glucose 117 mg/dL (74-106); Potassium 4.3 mmol/L (3.5-5.1); Sodium Level 138 mmol/L (136-145); Troponin-I HS 10 pg/mL (3.0-78.0)
[2022-08-17 10:37] LABS: Myoglobin, Serum 57 ng/mL (28-72)
== END | disposition home or self-care (01) ==
LOC: POLAB3 12:40
PROVIDERS: PCP Family Medicine Geriatric Medicine; Visit Provider Family Medicine Geriatric Medicine
DX: R07.9 Chest pain, unspecified (principal)
CPT/HCPCS: 36415; 80048; 82550; 83874; 84484; 85025

== ENCOUNTER 2022-08-25 06:16 | Emergency (ER) | payer MEDICARE, OTHER, SELFPAY ==
[2022-08-25 06:22] VITALS: BP 181/107; PULSE 78; RESP 18; TEMP 36.4; O2SAT 95; BMI 34.0
--- NOTE | 2022-08-25 06:31 | CT_ITS ---
EXAM: CT HEAD WITHOUT INTRAVENOUS CONTRAST CLINICAL INDICATION: right ear pain TECHNIQUE: Multiple axial images were obtained of the head without intravenous contrast. This CT exam was performed using one or more of the following dose reduction techniques: automated exposure control, adjustment of the mA and/or kV according to patient size, and/or use of iterative reconstruction technique. This report was created using [employer] report generation technology. COMPARISON: CT Head dated 11/19/2021 FINDINGS: BRAIN AND EXTRA-AXIAL SPACES: Areas of diminished white matter density noted within both cerebral hemispheres suggestive of chronic microvascular change. Prominence of the cortical sulci and ventricles related to volume loss change. No intra- or extra-axial hemorrhage. No evidence of acute infarct. No intracranial mass or mass effect. There is preservation of the ramos/white matter interface. Posterior fossa structures are unremarkable. Basal cisterns are patent. BONES/JOINTS: Normal. No discrete lytic or blastic abnormalities. SINUSES: Unremarkable as visualized. No acute sinusitis. MASTOID AIR CELLS: Normal. Clear. ORBITS: Visualized globes, extraocular muscles, optic nerves and retrobulbar fat appear unremarkable. CT/Brain/Head without Contrast IMPRESSION: 1. No acute intracranial abnormality. 2. Senescent changes. 3. No interval change Electronically Signed: Andre Rm MD at 7:34 EST ,
--- NOTE | 2022-08-25 06:31 | EKG12_ITS ---
Test Reason : INCREASED BP Blood Pressure : / mmHG Vent. Rate : 079 BPM Atrial Rate : 079 BPM P-R Int : 184 ms QRS Dur : 098 ms QT Int : 388 ms P-R-T Axes : 046 -26 076 degrees QTc Int : 444 ms Normal sinus rhythm Possible Left atrial enlargement Borderline ECG Confirmed by ANGEL ADAIR, CHARLOTTE ([id number]), manager editorial BOLA BO ([id number]) on 08/27/2022 11:35:09 AM Referred By: Confirmed By:CHARLOTTE ORTIZ MD
--- NOTE | 2022-08-25 06:34 | EX.ED.DYSGE1 ---
HPI History of Present Illness Chief Complaint: Other, Pain/Inj Detail of Chief Complaint: Right ear pain Informant: patient Narrative Narrative: Patient presents via EMS for right ear pain. He states he woke this morning with pain in the right ear. He denies any fall or injury. He has had no cold-like symptoms. He took Tylenol approximately 2 hours ago without improvement. [facility] Medical History (Updated 08/25/22 @ 07:[address] Lawanda Romero MD) Allergic rhinitis Altered mental status Anemia Bilateral carotid artery stenosis Bipolar 1 disorder BPH (benign prostatic hyperplasia) Chronic kidney disease Chronic renal insufficiency CVA (cerebral vascular accident) (03/2019) Donor, kidney Encephalopathy Essential (primary) hypertension GERD (gastroesophageal reflux disease) Hip fracture, left History of DVT (deep vein thrombosis) History of pulmonary embolism History of small bowel obstruction Hyperlipidemia New onset seizure Non-rheumatic aortic stenosis Osteoarthritis Peripheral arterial occlusive disease Presence of IVC filter Seizure Thrush of mouth and esophagus Tracheostomy in place Home Medications doxepin 75 mg capsule 75 mg PO DAILY INSOMNIA 04/09/21 [History Last Taken Unknown] fluoxetine 40 mg capsule 40 mg PO DAILY DEPRESSION 04/09/21 [History Last Taken Unknown] doxycycline hyclate 50 mg tablet 50 mg PO DAILY ATB 10/07/21 [History Last Taken Unknown] buspirone 10 mg tablet 10 mg PO TID MOOD 11/19/21 [History Last Taken Unknown] donepezil 10 mg tablet (Aricept) 10 mg PO QHS COGNITION 11/19/21 [History Last Taken Unknown] finasteride 5 mg tablet 5 mg PO DAILY URINARY RETENTION 11/19/21 [History Last Taken Unknown] memantine 5 mg tablet 5 mg PO BID COGNITION 11/19/21 [History Last Taken Unknown] oxcarbazepine 300 mg tablet 300 mg PO BID SEIZURE 11/19/21 [History Last Taken Unknown] carbidopa 25 mg-levodopa 100 mg tablet 1 tab PO TIDAC 30 days #90 tabs 11/27/21 [Rx Last Taken Unknown] hydrocodone-acetaminophen 5-325mg 5mg-325mg 1 tab PO BID PRN pain 4 days #8 tabs 08/25/22 [Rx Last Taken Unknown] tamsulosin 0.4 mg capsule 0.4 mg PO DAILY 08/25/22 [History Last Taken Unknown] Allergy/AdvReac Type Severity Reaction Status Date / Time penicillin V Allergy Mild hives Verified 08/25/22 06:34 codeine AdvReac Mild upset Verified 08/25/22 06:34 stomach pecan nut AdvReac Mild STOMACH Verified 08/25/22 06:34 CRAMPS divalproex sodium AdvReac Other Verified 08/25/22 06:34 [From Depakote] haloperidol [From Haldol] AdvReac Other Verified 08/25/22 06:34 loratadine [From Claritin] AdvReac Dizziness Verified 08/25/22 06:34 nut - unspecified [nuts] AdvReac Abd Verified 08/25/22 06:34 cramps/diarrhea Family History Brother Diabetes Mother Heart disease Sister Heart disease Surgical History Cataract extraction status of left eye donated kidney H/O arthroscopic knee surgery History of aortic valve replacement with bioprosthetic valve History of cataract surgery History of cholecystectomy History of kidney donation History of left common carotid artery stent placement (04/06/18) History of left heart catheterization (07/19/18) History of right common carotid artery stent placement (05/25/18) History of right nephrectomy (1982) left shoulder surgery Status post arthroscopy of left knee Status post emergency tracheotomy for assistance in breathing Status post left foot surgery Social History housing: assisted living facility Smoking Status: Former smoker Tobacco: How many years used: 10 how long ago did patient quit smoking: About 50yrs second hand exposure: No alcohol intake: never substance use type: does not use seatbelt use: always ROS ROS ED Constitutional Constitutional ED: Denies chills or fever(s) Eyes Eyes: Denies change in vision or discharge from eye(s) ENT ENT ED: Reports ear pain right; Denies discharge from eye(s), rhinorrhea or sore throat Cardiovascular Cardiovascular: Denies chest pain or palpitations Respiratory/Chest Respiratory/Chest: Denies cough or dyspnea Gastrointestinal Gastrointestinal: Denies abdominal pain, nausea or vomiting Musculoskeletal Musculoskeletal: Denies back pain or extremity pain Integumentary Denies Abrasions or rash Neurologic Neurologic: Denies headache(s) or weakness Allergic/Immunologic Allergic/Immunologic ED: Denies lip swelling or urticaria EXAM Physical Exam Const Vital Signs: 08/25/22 06:22 08/25/22 06:27 Temperature 97.6 F L Temperature Source Temporal Pulse Rate 78 Respiratory Rate 18 Respiratory Effort Normal Respiratory Pattern Normal Blood Pressure 181/107 H Blood Pressure Mean 131 Pulse Ox 95 Oxygen Delivery Method Room Air Positive well nourished and well developed General Appearance ED: well developed HEENT Reports moist mucous membranes HEENT Narrative: Scant cerumen noted in the right ear canal. Tympanic membrane is well visualized. There is no excessive fluid behind the TM. No erythema. He has no tenderness with tugging on his ear. There is no tenderness over the mastoid air cells. Left ear exam is unremarkable. Eyes PERRL and EOMs intact bilaterally Neck no lymphadenopathy Chest Wall inspection of chest normal and palpation of chest normal Resp normal respiratory effort and clear to auscultation bilaterally Cardio regular rate and regular rhythm GI non-tender Palpation: soft Extremity normal to inspection Neuro oriented x3 and no sensory deficits noted Motor Exam: strength 5/5 throughout Psych mental status grossly normal Skin no rashes or lesions noted MDM MDM MDM Narrative Medical decision making narrative: Patient sent for CT scan of the head. He was given 1 tab of Harbinger. EKG ordered. Radiography Diagnostic Testing: Clinical Impression(s) from Imaging Studies Brain CT 08/25/22 06:31 IMPRESSION: 1. No acute intracranial abnormality. 2. Senescent changes. 3. No interval change Electronically Signed: Andre Rm MD at 7:34 EST , EKG Initial EKG: Attestation: I personally reviewed and interpreted this EKG as follows: Interpretation: Sinus Rhythm (Sinus at 79 with no acute ischemia.) Treatment and Re-Evaluation Narrative: On repeat evaluation patient states his pain is improving after Harbinger. Systolic blood pressures in the mid 150s. Patient's CT scan reveals no acute abnormalities. EKG reveals no ischemia. He denies having any chest pain or shortness of breath. He has no jaw pain. Right ear will be irrigated. I will write him a short course of pain medication for home. Return instructions provided. Discharge Plan Triage Chief Complaint: Other, Pain/Inj ED Provider: Lawanda Romero Dx/Rx/DC Orders Clinical Impression: Acute otalgia Instructions: ED Earache Without Infection (Adult) Prescriptions: New hydrocodone-acetaminophen 5-325 mg tablet 1 tab PO BID PRN (Reason: pain) 4 Days Qty: 8 0RF No Action fluoxetine 40 mg capsule 40 mg PO DAILY doxepin 75 mg capsule 75 mg PO DAILY doxycycline hyclate 50 mg tablet 50 mg PO DAILY donepezil [Aricept] 10 mg tablet 10 mg PO QHS oxcarbazepine 300 mg tablet 300 mg PO BID buspirone 10 mg tablet 10 mg PO TID Rx Instructions: Hold for sedation/lethargy finasteride 5 MG tablet 5 mg PO DAILY memantine 5 mg tablet 5 mg PO BID carbidopa-levodopa 25-100 mg Tablet 1 tab PO TIDAC 30 Days Qty: 90 11RF tamsulosin 0.4 mg capsule 0.4 mg PO DAILY Primary Care Provider: Carlos Lira Chi Referrals: Carlos Lira Chi, MD [Primary Care Provider] - 1 Week if not improving Disposition Disposition: Home, Self Care
[2022-08-25] MEDS: HYDROcodone Bitartrate/Apap 5/325 Tablet PO (06:40)
[2022-08-25] MEDS: Carbamide Peroxide 15 ML Bottle 5 DRP OTIC (08:01)
[2022-08-25 08:03] VITALS: BP 155/105; PULSE 74; O2SAT 92
== END 2022-08-25 08:16 | disposition home or self-care (01) ==
PROVIDERS: Emergency Provider Emergency Medicine; PCP Family Medicine Geriatric Medicine; Visit Provider Emergency Medicine
DX: H92.01 Otalgia, right ear (principal); I12.9 Hypertensive chronic kidney disease with stage 1 through stage 4 chronic kidney disease, or unspecified chronic kidney disease; Z87.891 Personal history of nicotine dependence; N18.9 Chronic kidney disease, unspecified; Z79.899 Other long term (current) drug therapy; Z95.2 Presence of prosthetic heart valve; Z52.4 Kidney donor
CPT/HCPCS: 70450; 93005; 99284

== ENCOUNTER 2022-09-05 12:45 | Outpatient (CLI) | payer MEDICARE, OTHER, SELFPAY ==
--- NOTE | 2022-09-05 12:50 | STE_ITS ---
Reason For Study: Abnormal EKG Stress Results Protocol: Dobutamine Stress Echo Maximum Predicted HR: 142 bpm Target HR: 121 bpm % Maximum Predicted HR: 89 % DurationHeart Rate Stage (mm:ss) (bpm) BP Comment Baseline 80 147/92No Chest Pain; Definity Deferred D/T Nephrectomy DSE 10 MCG 3:33 86 152/92No Chest Pain DSE 20 MCG 4:07 100 145/77No Chest Pain DSE 30 MCG 3:08 106 119/62No Chest Pain DSE 40 MCG 2:21 126 114/61No Chest Pain; Atropine 0.25 MG IVP @ 1113 Min Recovery 97 144/92No Chest Pain Stress Duration: 13:09 mm:ss Maximum Stress HR: 126 bpm METS: 1 Baseline Echocardiogram Findings Stress Echo Wall motion Data Resting WM Intermediate WM Stress WM Resting Wall Motion Wall Motion Int. Wall Motion Stress No regional wall motion No regional wall motion No regional wall motion abnormalities noted. abnormalities noted. abnormalities noted. EKG Data Baseline ECG demonstrates normal sinus rhythm with a rate of 83 beats per minute. The baseline ECG displays normal sinus rhythm. Normal stress electrocardiogram. The maximum heart rate attained was 129 beats per minute. This was 90% of maximum predicted heart rate. ECHO/Stress Test Echo w/o Contrast Interpretation Summary Negative dobutamine stress echocardiogram for [place]. Ordering Physician: Carlos Lira Chi Referring Physician: Carlos Lira Chi Performed By: Nichole Castillo, DAGOBERTO
== END 2022-09-05 23:59 | disposition home or self-care (01) ==
LOC: CVS 12:48
PROVIDERS: PCP Family Medicine Geriatric Medicine; Referring Provider Family Medicine Geriatric Medicine; Visit Provider Family Medicine Geriatric Medicine
DX: R94.31 Abnormal electrocardiogram [ECG] [EKG] (principal); R07.9 Chest pain, unspecified
CPT/HCPCS: 93017; 93350; J7040; A4216

== ENCOUNTER → 2022-10-14 | Outpatient (CLI) | payer MEDICARE, OTHER, SELFPAY | END | disposition home or self-care (01) | LOC: PSN 10:55 | PROVIDERS: PCP Family Medicine Geriatric Medicine; Visit Provider Family Medicine Geriatric Medicine | DX: R68.83 Chills (without fever) (principal) | CPT/HCPCS: 87635; C9803; U0003; U0005 ==

== ENCOUNTER → 2022-11-17 | Outpatient (CLI) | payer MEDICARE, OTHER, SELFPAY ==
[2022-11-17 13:33] LABS: Absolute Lymphocyte Count 2.19 X10^3/uL (0.83-4.51); Absolute Neutrophil Count 3.3 X10^3/uL (2.0-7.7); Basophil% 1.5 % (0-1); Eosinophil# 0.37 X10^3/uL; Eosinophils% 5.4 % (0-5); Hematocrit 41.8 % (40-54); Hemoglobin 13.9 g/dL (13.0-16.5); Lymphocyte # 2.19 X10^3/ul (0.83-4.51); Mean Corp Hgb Conc 33.3 g/dL (32-36); Mean Corpuscular Hgb 31.5 pg (27.0-32.0); Mean Corpuscular Volume 94.8 fL (80-94); Mean Platelet Vol. 9.7 fl (6.2-12.0); Monocyte% 11.7 % (0-10); NRBC Flagged by Analyzer 0 % (0-5); Neutrophil # 3.33 X10^3/uL (2.7-7.7); Neutrophil % 48.7 % (47-70); Platelet Count 246 K/mm3 (150-450); RBC Distribution Width CV 13.9 % (11.6-14.6); RBC Distribution Width SD 48.2 fl (35.1-43.9); Red Blood Count 4.41 M/mm3 (4.6-6.2); White Blood Count 6.8 K/mm3 (4.4-11.0)
[2022-11-17 14:13] LABS: ALB/GLOB Ratio 0.8 RATIO (0.9-2.4); AST(SGOT) 38 U/L (15-37); Alanine Aminotransfer ALT/SGPT 17 U/L (16-61); Albumin, Serum 3.5 g/dL (3.2-5.0); Alkaline Phosphatase 102 U/L (45-117); Anion Gap 10 (5-15); BUN 25 mg/dL (7-18); BUN/Creat Ratio 13.3 RATIO (10-20); Calcium,Total 9.3 mg/dL (8.5-10.1); Chloride 106 mmol/L (98-107); Creatinine, Serum 1.88 mg/dL (0.70-1.30); EST Glomerular Filtration Rate 37 mL/min (>60); Est Glom Filt Rate - Afr Amer 45 mL/min (>60); Globulin 4.6 g/dL (2.2-4.2); Glucose 104 mg/dL (74-106); Potassium 3.8 mmol/L (3.5-5.1); Protein, Total 8.1 g/dL (6.4-8.2); Sodium Level 141 mmol/L (136-145); Thyroid Stim Hormone (TSH) 1.16 uIU/mL (0.358-3.74)
== END | disposition home or self-care (01) ==
LOC: LAB 12:33
PROVIDERS: PCP Family Medicine Geriatric Medicine; Referring Provider Family Medicine Geriatric Medicine; Visit Provider Family Medicine Geriatric Medicine
DX: E55.9 Vitamin D deficiency, unspecified (principal); R53.83 Other fatigue
CPT/HCPCS: 36415; 80053; 82306; 84443; 85025

== ENCOUNTER 2023-02-25 18:02 | Emergency (ER) | payer MEDICARE, OTHER, SELFPAY ==
[2023-02-25 18:03] VITALS: BP 129/82; PULSE 91; RESP 19; TEMP 36.8; O2SAT 97
[2023-02-25 18:16] VITALS: BP 160/87; PULSE 87; RESP 23; O2SAT 92; BMI 36.2
--- NOTE | 2023-02-25 18:18 | EKG12_ITS ---
Test Reason : DYSRHYTHMIA Blood Pressure : / mmHG Vent. Rate : 086 BPM Atrial Rate : 086 BPM P-R Int : 180 ms QRS Dur : 096 ms QT Int : 376 ms P-R-T Axes : 050 -27 075 degrees QTc Int : 449 ms Normal sinus rhythm Normal ECG Confirmed by ANGEL ADAIR, CHARLOTTE ([id number]), industrial editor BOLA BO ([id number]) on 02/27/2023 8:08:21 AM Referred By: SHAY Confirmed By:CHARLOTTE ORTIZ MD
--- NOTE | 2023-02-25 18:20 | EDS_ITS ---
HPI History of Present Illness Chief Complaint: Shortness of Breath Detail of Chief Complaint: Fullness in chest and cough Informant: patient and spouse/S.O. Narrative Narrative: CoughPatient presents to the emergency department with complaint of a fullness in his chest today and. He denies any chest discomfort currently. Patient has not had a fever. concerned about possibility for pneumonia because he was around his daughter who was exposed to her [id number] who was diagnosed with parainfluenza and pneumonia. Patient's not had a fever. He denies chills or sweats. He denies shortness of breath. Patient does have remote history of PEs but is not currently anticoagulated. He does have a [place] filter. Denies recent travel or surgery. [facility] Medical History Allergic rhinitis Allergic rhinitis Altered mental status Anemia Bilateral carotid artery stenosis Bipolar 1 disorder BPH (benign prostatic hyperplasia) Chronic kidney disease Chronic renal insufficiency COVID-19 CVA (cerebral vascular accident) (03/2019) Donor, kidney Encephalopathy Essential (primary) hypertension GERD (gastroesophageal reflux disease) Hip fracture, left History of DVT (deep vein thrombosis) History of pulmonary embolism History of small bowel obstruction Hyperlipidemia New onset seizure Non-rheumatic aortic stenosis Osteoarthritis Peripheral arterial occlusive disease Presence of IVC filter Seizure Seizure disorder Thrush of mouth and esophagus Tracheostomy in place Home Medications fluoxetine 40 mg capsule 40 mg PO DAILY DEPRESSION 04/09/21 [History Last Taken Unknown] doxycycline hyclate 50 mg tablet 50 mg PO DAILY ATB 10/07/21 [History Last Taken Unknown] buspirone 10 mg tablet 10 mg PO TID MOOD 11/19/21 [History Last Taken Unknown] donepezil 10 mg tablet (Aricept) 10 mg PO QHS COGNITION 11/19/21 [History Last Taken Unknown] finasteride 5 mg tablet 5 mg PO DAILY URINARY RETENTION 11/19/21 [History Last Taken Unknown] oxcarbazepine 300 mg tablet 300 mg PO BID SEIZURE 11/19/21 [History Last Taken Unknown] carbidopa 25 mg-levodopa 100 mg tablet 1 tab PO TIDAC 30 days #90 tabs 11/27/21 [Rx Last Taken Unknown] tamsulosin 0.4 mg capsule 0.4 mg PO DAILY 08/25/22 [History Last Taken Unknown] doxepin 75 mg capsule 75 mg PO QHS INSOMNIA 10/02/22 [History Last Taken Unknown] memantine 10 mg tablet 10 mg PO BID 10/02/22 [History Last Taken Unknown] Allergy/AdvReac Type Severity Reaction Status Date / Time penicillin V Allergy Mild hives Verified 02/25/23 18:05 codeine AdvReac Mild upset Verified 02/25/23 18:05 stomach pecan nut AdvReac Mild STOMACH Verified 02/25/23 18:05 CRAMPS divalproex sodium AdvReac Other Verified 02/25/23 18:05 [From Depakote] haloperidol [From Haldol] AdvReac Other Verified 02/25/23 18:05 loratadine [From Claritin] AdvReac Dizziness Verified 02/25/23 18:05 nut - unspecified [nuts] AdvReac Abd Verified 02/25/23 18:05 cramps/diarrhea Family History Brother Diabetes Mother Heart disease Sister Heart disease Surgical History Cataract extraction status of left eye donated kidney H/O arthroscopic knee surgery History of aortic valve replacement with bioprosthetic valve History of cataract surgery History of cholecystectomy History of kidney donation History of left common carotid artery stent placement (04/06/18) History of left heart catheterization (07/19/18) History of right common carotid artery stent placement (05/25/18) History of right nephrectomy (1982) left shoulder surgery Status post arthroscopy of left knee Status post emergency tracheotomy for assistance in breathing Status post left foot surgery Social History housing: assisted living facility Smoking Status: Former smoker Tobacco: How many years used: 10 how long ago did patient quit smoking: About 50yrs second hand exposure: No alcohol intake: never substance use type: does not use caffeine: No seatbelt use: always ROS ROS ED Review of Systems ROS Unobtainable: other Constitutional Constitutional ED: Reports lethargy; Denies chills, fever(s), sweats or weight loss Eyes Eyes: Denies blurry vision, change in vision or diplopia ENT ENT ED: Denies rhinorrhea or sore throat Cardiovascular Cardiovascular: Reports chest pain; Denies orthopnea or racing heartbeat Respiratory/Chest Respiratory/Chest: Denies cough, dyspnea, dyspnea on exertion, orthopnea or sputum Gastrointestinal Gastrointestinal: Denies abdominal pain, diarrhea, nausea or vomiting Genitourinary Genitourinary ED: Denies dysuria, hematuria or urinary frequency Musculoskeletal Musculoskeletal: Denies arthralgias, back pain, myalgias or neck pain Integumentary Denies abscess, Abrasions or rash Neurologic Neurologic: Denies headache(s) or weakness Psychiatric Psychiatric: Denies anxiety, depression or suicidal thoughts Endocrine Endocrinology: Denies polydipsia, polyphagia or polyuria Hematologic/Lymphatic Hematologic/Lymphatic: Denies easy bleeding, easy bruising or lymphadenopathy Allergic/Immunologic Allergic/Immunologic ED: Denies mouth swelling, tongue swelling or urticaria EXAM Physical Exam Const Vital Signs: 02/25/23 18:03 02/25/23 18:16 02/25/23 18:16 Temperature 98.2 F Temperature Source Temporal Pulse Rate 91 87 Respiratory Rate 19 H 23 H Respiratory Effort Normal Respiratory Depth Normal Respiratory Pattern Normal Blood Pressure 129/82 H 160/87 H Blood Pressure Mean 97 111 Pulse Ox 97 92 Oxygen Delivery Method Room Air Room Air 02/25/23 19:38 Temperature Temperature Source Pulse Rate 80 Respiratory Rate 13 Respiratory Effort Respiratory Depth Respiratory Pattern Blood Pressure 132/88 H Blood Pressure Mean 102 Pulse Ox 92 Oxygen Delivery Method Room Air Positive well nourished and well developed General Appearance ED: well developed and NAD HEENT Reports TM's clear and moist mucous membranes normocephalic and atraumatic; Negative for trauma or tenderness Tympanic Membrane ED: Yes TM's clear Eyes PERRL and EOMs intact bilaterally General Eye ED: Negative for pale conjunctiva or scleral icterus Neck no lymphadenopathy, supple and no JVD General: Negative for tenderness Chest Wall inspection of chest normal and palpation of chest normal Chest: Negative for tenderness Resp normal respiratory effort and clear to auscultation bilaterally Effort and Inspection: Negative for respiratory distress or pain with movement Auscultation: Negative for rhonchi, wheezes or diminished lung sounds Cardio regular rate, regular rhythm, S1 normal heart sound, S2 normal heart sound and no murmurs Peripheral Pulses: pulses 2+ throughout GI normal to inspection, nondistended, normoactive bowel sounds, soft to palpation, non-tender, non-distended and no masses Back/Spine no CVA tenderness and no thoracic nor lumbar tenderness Extremity normal to inspection General Extremety ED: Negative for edema General Extremity: Negative for edema Neuro oriented x3, CN's II-XII intact bilaterally, no sensory deficits noted and gait normal Sensorium / Orientation: awake, alert, oriented to person, oriented to place and oriented to time Motor Exam: strength 5/5 throughout and strength abnormal Psych mental status grossly normal Skin no rashes or lesions noted and no wounds MDM MDM MDM Narrative Medical decision making narrative: Patient with an odd sensation in his chest and a cough. In the differential would be cardiac etiology of symptoms versus PE versus infectious etiology. Patient clinically looks well. Vital signs are stable. Patient has CBC with differential that showed a white count of 8.3 with a hemoglobin of 14.9 hematocrit 46.5 and platelets 311. Chemistries were normal. Troponin was 14. D-dimer was elevated 1.48. Lactate was normal at 1.1. Patient had negative COVID and flu tests. Chest x-ray showed nothing acute. CTA of the chest was obtained to rule out PE and this was negative for PE or dissection or acute disease process. This time I suspect possibly a viral URI. Patient advised to follow-up with his primary care physician within next 3 to 5 days. Advised to return if increasing shortness of breath or worsening chest pain or condition should worsen anyway. I do not feel he is having acute coronary syndrome. Lab Data Attestation: I reviewed the patient's lab results. Labs: Laboratory Results - last 24 hr 02/25/23 02/25/23 02/25/23 18:15 18:15 18:15 WBC 8.3 RBC 4.78 Hgb 14.9 Hct 46.5 MCV 97.3 H MCH 31.2 MCHC 32.0 RDW Std Deviation 50.0 H RDW Coeff of Mally 13.8 Plt Count 311 MPV 9.3 Immature Gran % (Auto) 1.200 H Neut % (Auto) 51.7 Lymph % (Auto) 30.1 [place] % (Auto) 11.1 H Eos % (Auto) 4.8 Baso % (Auto) 1.1 H Absolute Neuts (auto) 4.3 Absolute Lymphs (auto) 2.50 Nucleated RBC % 0 D-Dimer Quant (PE/DVT) 1.48 H* Sodium 140 Potassium 4.3 Chloride 105 Carbon Dioxide 26.0 Anion Gap 9 BUN 28 H Creatinine 2.17 H Estim Creat Clear Calc 25.32 Est GFR (MDRD) Af Amer 38 L Est GFR (MDRD) Non-Af 31 L BUN/Creatinine Ratio 12.9 Glucose 115 H Lactic Acid Calcium 9.8 Troponin I High Sens 14 02/25/23 18:28 WBC RBC Hgb Hct MCV MCH MCHC RDW Std Deviation RDW Coeff of Mally Plt Count MPV Immature Gran % (Auto) Neut % (Auto) Lymph % (Auto) [place] % (Auto) Eos % (Auto) Baso % (Auto) Absolute Neuts (auto) Absolute Lymphs (auto) Nucleated RBC % D-Dimer Quant (PE/DVT) Sodium Potassium Chloride Carbon Dioxide Anion Gap BUN Creatinine Estim Creat Clear Calc Est GFR (MDRD) Af Amer Est GFR (MDRD) Non-Af BUN/Creatinine Ratio Glucose Lactic Acid 1.1 Calcium Troponin I High Sens Radiography Chest X-Ray - ED: 1 View Diagnostic Testing: Clinical Impression(s) from Imaging Studies Chest X-Ray 02/25/23 18:30 IMPRESSION: Incomplete expansion of the lungs, but no gross acute chest disease. Electronically Signed: Ulisses Bae MD at 18:49 EDT , Chest CTA 02/25/23 19:02 IMPRESSION: Normal CTA chest examination, without a demonstrated pulmonary embolism or arterial dissection. Incomplete expansion of the lungs with scattered areas of subsegmental atelectasis. Electronically Signed: Ulisses Bae MD at 20:50 EDT , 1 view chest x-ray obtained interpreted by myself as no acute disease process. No evidence of infiltrate or pneumothorax. Radiology in agreement. EKG Initial EKG: Attestation: I personally reviewed and interpreted this EKG as follows: Comments: Sinus rhythm with a rate of 86 bpm with no acute ST segment changes Discharge Plan Triage Chief Complaint: Shortness of Breath ED Provider: Xiomara Xie Dx/Rx/DC Orders Clinical Impression: Viral URI Instructions: ED URI, Viral, No Abx (Adult) Prescriptions: No Action fluoxetine 40 mg capsule 40 mg PO DAILY doxepin 75 mg capsule 75 mg PO QHS doxycycline hyclate 50 mg tablet 50 mg PO DAILY memantine 10 mg tablet 10 mg PO BID donepezil [Aricept] 10 mg tablet 10 mg PO QHS oxcarbazepine 300 mg tablet 300 mg PO BID buspirone 10 mg tablet 10 mg PO TID Rx Instructions: Hold for sedation/lethargy finasteride 5 MG tablet 5 mg PO DAILY carbidopa-levodopa 25-100 mg Tablet 1 tab PO TIDAC 30 Days Qty: 90 11RF tamsulosin 0.4 mg capsule 0.4 mg PO DAILY Primary Care Provider: Carlos Lira Chi Referrals: Carlos Lira Chi, MD [Primary Care Provider] - 3-5 Days Disposition Disposition: Home, Self Care
[2023-02-25 18:30] LABS: Absolute Neutrophil Count 4.3 X10^3/uL (2.0-7.7); Basophil# 0.09 X10^3/uL; Basophil% 1.1 % (0-1); Eosinophils% 4.8 % (0-5); Hematocrit 46.5 % (40-54); Hemoglobin 14.9 g/dL (13.0-16.5); Lymphocyte % 30.1 % (19-41); Mean Corpuscular Hgb 31.2 pg (27.0-32.0); Mean Corpuscular Volume 97.3 fL (80-94); Mean Platelet Vol. 9.3 fl (6.2-12.0); Monocyte# 0.92 X10^3/uL; Monocyte% 11.1 % (0-10); NRBC Flagged by Analyzer 0 % (0-5); Neutrophil # 4.29 X10^3/uL (2.7-7.7); Neutrophil % 51.7 % (47-70); Platelet Count 311 K/mm3 (150-450); RBC Distribution Width CV 13.8 % (11.6-14.6); Red Blood Count 4.78 M/mm3 (4.6-6.2); White Blood Count 8.3 K/mm3 (4.4-11.0)
--- NOTE | 2023-02-25 18:30 | RAD_ITS ---
STUDY: X-RAY CHEST REASON FOR EXAM: Male, 77 years old. cough TECHNIQUE: Single AP portable view of the chest. COMPARISON: 12/06/2021 . FINDINGS: Moderate lung volumes. No definite infiltrates. No gross effusions. Normal size heart. Previous median sternotomy. Prosthetic aortic valve. Normal mediastinum and michaelle. Normal visualized pulmonary arteries. Normal visualized aortic arch and descending thoracic aorta. Normal visualized thoracic spine. Normal visualized ribs, clavicles, and shoulders. There is no demonstrated abnormality of the visualized soft tissue structures of the upper abdomen. RAD/Chest 1 View (Portable) IMPRESSION: Incomplete expansion of the lungs, but no gross acute chest disease. Electronically Signed: Ulisses Bae MD at 18:49 EDT ,
[2023-02-25 18:46] LABS: Anion Gap 9 (5-15); BUN 28 mg/dL (7-18); BUN/Creat Ratio 12.9 RATIO (10-20); Calcium,Total 9.8 mg/dL (8.5-10.1); Chloride 105 mmol/L (98-107); Creatinine, Serum 2.17 mg/dL (0.70-1.30); EST Glomerular Filtration Rate 31 mL/min (>60); Est Glom Filt Rate - Afr Amer 38 mL/min (>60); Estimated Creatinine Clearance 25.32 ml/min; Glucose 115 mg/dL (74-106); Potassium 4.3 mmol/L (3.5-5.1); Sodium Level 140 mmol/L (136-145); Troponin-I HS 14 pg/mL (3.0-78.0)
[2023-02-25] MEDS: 0.9% Normal Saline 1,000 ML 150 ML IV (18:46)
[2023-02-25 18:49] LABS: D-Dimer Quantitative (DVT/PE) 1.48 FEU/ug/m (0.27-0.49)
--- NOTE | 2023-02-25 19:02 | CT_ITS ---
STUDY: CTA CHEST REASON FOR EXAM: Male, 77 years old. chest pain, elevated d-dimer RADIATION DOSAGE (If Supplied By Facility): CTDIvol = ( 12.37 ) mGy, DLP = ( 453.87 ) mGycm TECHNIQUE: The examination was performed with the intravenous administration of IV 100mL [id number]-[id number]. Post-processing of the angiographic images was performed, with multiplanar reformation and 3D reconstruction. Individualized dose optimization techniques were used for this CT. COMPARISON: None. FINDINGS: Normal enhancement of the main pulmonary artery and right and left pulmonary arteries. Normal enhancement of the bilateral peripheral pulmonary arteries. There is no demonstrated pulmonary embolism. Normal thoracic aorta and visualized great vessels. There is no demonstrated aortic dissection. Sternal cerclage wires and vascular clips are present from a prior sternotomy and coronary artery bypass graft procedure (CABG). There is a prosthetic aortic valve. Normal mediastinum. Normal hilar regions. Normal visualized trachea and bronchi. The lungs are under expanded. Scattered areas of subsegmental atelectasis are seen. No focal infiltrates. No gross effusions. There are degenerative changes of thoracic spine. Normal visualized upper abdomen. CT/CTA Chest W/WO Contrast IMPRESSION: Normal CTA chest examination, without a demonstrated pulmonary embolism or arterial dissection. Incomplete expansion of the lungs with scattered areas of subsegmental atelectasis. Electronically Signed: Ulisses Bae MD at 20:50 EDT ,
[2023-02-25 19:28] LABS: Lactic Acid 1.1 mmol/L (0.4-1.9)
[2023-02-25 19:38] VITALS: BP 132/88; PULSE 80; RESP 13; O2SAT 92
[2023-02-25 21:18] VITALS: BP 124/70; PULSE 82; RESP 23; O2SAT 95
== END 2023-02-25 21:35 | disposition home or self-care (01) ==
PROVIDERS: Emergency Provider Emergency Medicine; PCP Family Medicine Geriatric Medicine; Visit Provider Emergency Medicine
DX: J06.9 Acute upper respiratory infection, unspecified (principal); G40.909 Epilepsy, unspecified, not intractable, without status epilepticus; I12.9 Hypertensive chronic kidney disease with stage 1 through stage 4 chronic kidney disease, or unspecified chronic kidney disease; E78.5 Hyperlipidemia, unspecified; N18.9 Chronic kidney disease, unspecified; Z87.891 Personal history of nicotine dependence; Z79.899 Other long term (current) drug therapy; Z94.0 Kidney transplant status; Z95.5 Presence of coronary angioplasty implant and graft
CPT/HCPCS: 71045; 71275; 80048; 83605; 84484; 85025; 85379; 87040; 87428; 93005; 96360; 96361; 99284; J7030; Q9967; A4216

== ENCOUNTER → 2023-04-07 | Outpatient (CLI) | payer MEDICARE, OTHER, SELFPAY ==
[2023-04-07 16:28] LABS: Albumin, Serum 3.4 g/dL (3.2-5.0); BUN 23 mg/dL (7-18); BUN/Creat Ratio 11.7 RATIO (10-20); Calcium,Total 9.2 mg/dL (8.5-10.1); Chloride 108 mmol/L (98-107); Creatinine, Serum 1.96 mg/dL (0.70-1.30); EST Glomerular Filtration Rate 35 mL/min (>60); Est Glom Filt Rate - Afr Amer 43 mL/min (>60); Glucose 98 mg/dL (74-106); Phosphorus 3.4 mg/dL (2.5-4.9); Potassium 4.1 mmol/L (3.5-5.1); Sodium Level 140 mmol/L (136-145)
[2023-04-08 08:23] LABS: PTHIN 64.6 pg/mL (18.4-80.1)
== END | disposition home or self-care (01) ==
LOC: LAB 14:35
PROVIDERS: PCP Family Medicine Geriatric Medicine; Referring Provider Internal Medicine Nephrology; Visit Provider Internal Medicine Nephrology
DX: N18.32 Chronic kidney disease, stage 3b (principal)
CPT/HCPCS: 36415; 80069; 83970

== ENCOUNTER → 2023-05-11 | Outpatient (CLI) | payer MEDICARE, OTHER, SELFPAY ==
[2023-05-11 15:43] LABS: Absolute Lymphocyte Count 1.99 X10^3/uL (0.83-4.51); Absolute Neutrophil Count 3.4 X10^3/uL (2.0-7.7); Basophil# 0.08 X10^3/uL; Basophil% 1.2 % (0-1); Eosinophil# 0.32 X10^3/uL; Eosinophils% 4.9 % (0-5); Hematocrit 43.8 % (40-54); Hemoglobin 14.2 g/dL (13.0-16.5); Lymphocyte # 1.99 X10^3/ul (0.83-4.51); Lymphocyte % 30.3 % (19-41); Mean Corp Hgb Conc 32.4 g/dL (32-36); Mean Corpuscular Hgb 31.1 pg (27.0-32.0); Mean Corpuscular Volume 96.1 fL (80-94); Mean Platelet Vol. 10.9 fl (6.2-12.0); Monocyte# 0.68 X10^3/uL; Monocyte% 10.4 % (0-10); NRBC Flagged by Analyzer 0 % (0-5); Neutrophil # 3.42 X10^3/uL (2.7-7.7); Neutrophil % 52.1 % (47-70); Platelet Count 243 K/mm3 (150-450); RBC Distribution Width CV 13.8 % (11.6-14.6); RBC Distribution Width SD 49.1 fl (35.1-43.9); Red Blood Count 4.56 M/mm3 (4.6-6.2); White Blood Count 6.6 K/mm3 (4.4-11.0)
[2023-05-11 16:21] LABS: ALB/GLOB Ratio 0.8 RATIO (0.9-2.4); AST(SGOT) 28 U/L (15-37); Alanine Aminotransfer ALT/SGPT 15 U/L (16-61); Albumin, Serum 3.5 g/dL (3.2-5.0); Alkaline Phosphatase 103 U/L (45-117); Anion Gap 7 (5-15); BUN 22 mg/dL (7-18); BUN/Creat Ratio 10.8 RATIO (10-20); Calcium,Total 9.2 mg/dL (8.5-10.1); Chloride 107 mmol/L (98-107); Creatinine, Serum 2.04 mg/dL (0.70-1.30); EST Glomerular Filtration Rate 34 mL/min (>60); Est Glom Filt Rate - Afr Amer 41 mL/min (>60); Globulin 4.5 g/dL (2.2-4.2); Glucose 97 mg/dL (74-106); Sodium Level 137 mmol/L (136-145); Thyroid Stim Hormone (TSH) 1.61 uIU/mL (0.358-3.74)
[2023-05-11 16:39] LABS: Vitamin D,25 Hydroxy 13.1 ng/mL
== END | disposition home or self-care (01) ==
PROVIDERS: PCP Family Medicine Geriatric Medicine; Visit Provider Family Medicine Geriatric Medicine
DX: R53.83 Other fatigue (principal); E55.9 Vitamin D deficiency, unspecified
CPT/HCPCS: 36415; 80053; 82306; 84443; 85025

== ENCOUNTER → 2023-10-27 | Outpatient (CLI) | payer MEDICARE, OTHER, SELFPAY ==
[2023-10-27 14:28] LABS: Absolute Lymphocyte Count 1.85 X10^3/uL (0.83-4.51); Absolute Neutrophil Count 3.7 X10^3/uL (2.0-7.7); Basophil# 0.08 X10^3/uL; Basophil% 1.2 % (0-1); Eosinophil# 0.31 X10^3/uL; Eosinophils% 4.6 % (0-5); Hematocrit 42.9 % (40-54); Hemoglobin 13.5 g/dL (13.0-16.5); Lymphocyte # 1.85 X10^3/ul (0.83-4.51); Lymphocyte % 27.3 % (19-41); Mean Corp Hgb Conc 31.5 g/dL (32-36); Mean Corpuscular Hgb 30.2 pg (27.0-32.0); Mean Platelet Vol. 9.8 fl (6.2-12.0); Monocyte# 0.79 X10^3/uL; Monocyte% 11.7 % (0-10); NRBC Flagged by Analyzer 0 % (0-5); Neutrophil # 3.66 X10^3/uL (2.7-7.7); Neutrophil % 53.9 % (47-70); Platelet Count 320 K/mm3 (150-450); RBC Distribution Width CV 13.8 % (11.6-14.6); RBC Distribution Width SD 48.9 fl (35.1-43.9); Red Blood Count 4.47 M/mm3 (4.6-6.2); White Blood Count 6.8 K/mm3 (4.4-11.0)
[2023-10-27 14:43] LABS: Vitamin D,25 Hydroxy 21.3 ng/mL
[2023-10-27 14:52] LABS: ALB/GLOB Ratio 0.8 RATIO (0.9-2.4); AST(SGOT) 29 U/L (15-37); Alanine Aminotransfer ALT/SGPT 15 U/L (16-61); Albumin, Serum 3.5 g/dL (3.2-5.0); Alkaline Phosphatase 110 U/L (45-117); Anion Gap 8 (5-15); BUN 25 mg/dL (7-18); BUN/Creat Ratio 12.1 RATIO (10-20); Calcium,Total 8.9 mg/dL (8.5-10.1); Chloride 108 mmol/L (98-107); Creatinine, Serum 2.07 mg/dL (0.70-1.30); EST Glomerular Filtration Rate 33 mL/min (>60); Est Glom Filt Rate - Afr Amer 40 mL/min (>60); Globulin 4.6 g/dL (2.2-4.2); Glucose 113 mg/dL (74-106); Potassium 4.2 mmol/L (3.5-5.1); Protein, Total 8.1 g/dL (6.4-8.2); Sodium Level 139 mmol/L (136-145); Thyroid Stim Hormone (TSH) 2.08 uIU/mL (0.358-3.74)
== END | disposition home or self-care (01) ==
LOC: POLAB3 13:16
PROVIDERS: PCP Family Medicine Geriatric Medicine; Visit Provider Family Medicine Geriatric Medicine
DX: R53.83 Other fatigue (principal); E55.9 Vitamin D deficiency, unspecified
CPT/HCPCS: 36415; 80053; 82306; 84443; 85025

== ENCOUNTER 2023-11-23 17:36 | Emergency (ER) | payer MEDICARE, OTHER, SELFPAY ==
[2023-11-23 17:38] VITALS: BP 142/89; PULSE 87; RESP 18; TEMP 36; O2SAT 99
[2023-11-23 18:30] VITALS: BP 125/96; PULSE 86; RESP 18; O2SAT 97
--- NOTE | 2023-11-23 19:24 | CT_ITS ---
EXAMINATION : Head CT w/out contrast HISTORY : Altered mental status COMPARISON : 08/25/2022. TECHNIQUE : Multiple contiguous axial images were obtained from the skull base to the vertex without intravenous contrast. A radiation dose optimization technique was used for this scan. FINDINGS : There is no evidence for acute intracranial hemorrhage, mass effect, or midline shift. There is no extra-axial fluid collection. There are periventricular white matter changes consistent with chronic microvascular ischemic disease. There is sulcal widening and ventricular enlargement consistent with cerebral atrophy. There is normal carlin-white differentiation, without CT evidence of acute ischemia or infarct. The skull base and calvarium are unremarkable. The orbits are unremarkable. The paranasal sinuses are clear. The mastoid air cells are well-aerated. The soft tissues are unremarkable. CT/Brain/Head without Contrast IMPRESSION: No acute intracranial abnormality. Chronic involutional and ischemic changes of the brain. Electronically Signed: Robert Mccloud MD at 20:37 EST ,
--- NOTE | 2023-11-23 19:27 | EDS_ITS ---
HPI History of Present Illness Chief Complaint: Confusion Informant: patient and family Onset/Context/Timing Onset: Today Context: Sudden Onset Timing: Continuous Quality: Confused Location: Generalized Worsened by: Nothing Relieved by: Nothing Narrative Narrative: Patient presents with confusion that began today. Family states that this began rather suddenly tonight. Family states that has been constant. Family states nothing makes it better nothing makes it worse. Family states the patient has had similar episodes when he has had hyponatremia in the past. Family states the patient has had some urinary frequency a few days ago and then has been having decreased urine output today. Family denies any fevers or chills. Patient does have a history of dementia but family states this is different than his baseline dementia. [facility] Medical History Allergic rhinitis Allergic rhinitis Altered mental status Anemia Bilateral carotid artery stenosis Bipolar 1 disorder BPH (benign prostatic hyperplasia) Chronic kidney disease Chronic renal insufficiency COVID-19 CVA (cerebral vascular accident) (03/2019) Donor, kidney Encephalopathy Essential (primary) hypertension GERD (gastroesophageal reflux disease) Hip fracture, left History of DVT (deep vein thrombosis) History of pulmonary embolism History of small bowel obstruction Hyperlipidemia New onset seizure Non-rheumatic aortic stenosis Osteoarthritis Peripheral arterial occlusive disease Presence of IVC filter Seizure Seizure disorder Thrush of mouth and esophagus Tracheostomy in place Home Medications fluoxetine 40 mg capsule 40 mg PO DAILY DEPRESSION 04/09/21 [History Last Taken Unknown] doxycycline hyclate 50 mg tablet 50 mg PO PRN ATB 10/07/21 [History Last Taken Unknown] buspirone 10 mg tablet 10 mg PO TID MOOD 11/19/21 [History Last Taken Unknown] donepezil 10 mg tablet (Aricept) 10 mg PO QHS COGNITION 11/19/21 [History Last Taken Unknown] finasteride 5 mg tablet 5 mg PO DAILY URINARY RETENTION 11/19/21 [History Last Taken Unknown] oxcarbazepine 300 mg tablet 300 mg PO BID SEIZURE 11/19/21 [History Last Taken Unknown] carbidopa 25 mg-levodopa 100 mg tablet 1 tab PO TIDAC 30 days #90 tabs 11/27/21 [Rx Last Taken Unknown] tamsulosin 0.4 mg capsule 0.4 mg PO DAILY 08/25/22 [History Last Taken Unknown] doxepin 75 mg capsule 75 mg PO QHS INSOMNIA 10/02/22 [History Last Taken Unknown] memantine 10 mg tablet 10 mg PO BID 10/02/22 [History Last Taken Unknown] Allergy/AdvReac Type Severity Reaction Status Date / Time penicillin V Allergy Mild hives Verified 11/23/23 17:38 codeine AdvReac Mild upset Verified 11/23/23 17:38 stomach pecan nut AdvReac Mild STOMACH Verified 11/23/23 17:38 CRAMPS divalproex sodium AdvReac Other Verified 11/23/23 17:38 [From Depakote] haloperidol [From Haldol] AdvReac Other Verified 11/23/23 17:38 loratadine [From Claritin] AdvReac Dizziness Verified 11/23/23 17:38 nut - unspecified [nuts] AdvReac Abd Verified 11/23/23 17:38 cramps/diarrhea Family History (Reviewed 04/02/23 @ 14:45 by Sincere Greene [employer], [employer]-C) Brother Diabetes Mother Heart disease Sister Heart disease Surgical History Cataract extraction status of left eye donated kidney H/O arthroscopic knee surgery History of aortic valve replacement with bioprosthetic valve History of cataract surgery History of cholecystectomy History of kidney donation History of left common carotid artery stent placement (04/06/18) History of left heart catheterization (07/19/18) History of right common carotid artery stent placement (05/25/18) History of right nephrectomy (1982) left shoulder surgery Status post arthroscopy of left knee Status post emergency tracheotomy for assistance in breathing Status post left foot surgery Social History housing: assisted living facility Smoking Status: Former smoker Tobacco: How many years used: 10 how long ago did patient quit smoking: About 50yrs second hand exposure: No alcohol intake: never substance use type: does not use caffeine: No seatbelt use: always ROS ROS ED Constitutional Constitutional ED: Denies chills or fever(s) Eyes Eyes: Denies blurry vision or change in vision ENT ENT ED: Denies rhinorrhea or sore throat Cardiovascular Cardiovascular: Denies chest pain or palpitations Respiratory/Chest Respiratory/Chest: Denies cough or dyspnea Gastrointestinal Gastrointestinal: Denies nausea or vomiting Genitourinary Genitourinary ED: Reports urinary frequency; Denies dysuria or hematuria Musculoskeletal Musculoskeletal: Denies back pain or neck pain Integumentary Denies abscess or rash Neurologic Neurologic: Denies headache(s) or weakness Allergic/Immunologic Allergic/Immunologic ED: Denies mouth swelling or urticaria EXAM Physical Exam Const Vital Signs: 11/23/23 17:38 11/23/23 18:30 11/23/23 20:31 Temperature 96.8 F L Temperature Source Temporal Pulse Rate 87 86 76 Respiratory Rate 18 18 16 Blood Pressure 142/89 H 125/96 H 156/98 H Blood Pressure Mean 106 105 117 Pulse Ox 99 97 Oxygen Delivery Method Room Air Room Air 11/23/23 22:04 Temperature Temperature Source Pulse Rate 78 Respiratory Rate 17 Blood Pressure 175/97 H Blood Pressure Mean 123 Pulse Ox 95 Oxygen Delivery Method Room Air Positive well nourished and well developed General Appearance ED: well developed and NAD HEENT Reports moist mucous membranes Neck supple and no JVD Resp normal respiratory effort and clear to auscultation bilaterally Cardio regular rate and regular rhythm GI non-tender and non-distended Palpation: soft Extremity General Extremety ED: Negative for edema or tenderness General Extremity: Negative for edema Neuro CN's II-XII intact bilaterally and no sensory deficits noted Sensorium / Orientation: alert Motor Exam: strength 5/5 throughout Psych mental status grossly normal MDM MDM MDM Narrative Medical decision making narrative: Differential diagnosis includes cardiac dysrhythmia, cardiac ischemia, stroke, intracranial bleeding, electrolyte abnormality, infection, and exacerbation of dementia. CT scan of the brain will be obtained to assess for intracranial bleeding and stroke. EKG will be obtained to assess for cardiac dysrhythmia and cardiac ischemia. CBC will be obtained to assess for leukocytosis and anemia. Comprehensive metabolic profile will be obtained to assess for hepatic function, renal function, and electrolyte abnormality. PT with INR and PTT will be obtained to assess for coagulopathy. Serum lactate will be obtained to assess for sepsis. Urinalysis will be obtained to assess for urinary tract infection. COVID-19, influenza, and RSV PCR will be obtained to assess for viral infection. ABG will be obtained to assess for CO2 retention. History & Record Review Additional record(s) reviewed:: Prior labs Lab Data Attestation: I reviewed the patient's lab results. Lab results narrative: CBC was reviewed and was within normal limits. Comprehensive metabolic profile was reviewed. BUN was 26 and creatinine was 2.14. These are consistent with prior results. Serum lactate was reviewed and was normal at 1.0. Urinalysis was reviewed. There is no evidence of urinary tract infection or hematuria. COVID-19 PCR was reviewed and was negative. Influenza PCR was reviewed and was negative for influenza A and influenza B. RSV PCR was reviewed and was negative. Arterial blood gas was reviewed. pH was 7.326, pCO2 was 41.8, pO2 of 71.3, bicarb was 21.9, and O2 saturation was 92.8% on room air. Labs: Laboratory Results - last 24 hr 11/23/23 11/23/23 11/23/23 18:20 19:40 21:00 WBC 7.8 RBC 4.39 L Hgb 13.4 Hct 41.2 MCV 93.8 MCH 30.5 MCHC 32.5 RDW Std Deviation 47.5 H RDW Coeff of Mally 13.7 Plt Count 289 MPV 10.5 Immature Gran % (Auto) 0.800 Neut % (Auto) 54.9 Lymph % (Auto) 24.5 [place] % (Auto) 13.1 H Eos % (Auto) 5.5 H Baso % (Auto) 1.2 H Absolute Neuts (auto) 4.3 Absolute Lymphs (auto) 1.91 Nucleated RBC % 0 PT 12.5 INR 0.9 APTT 35.6 Sodium 140 Potassium 4.5 Chloride 110 H Carbon Dioxide 23.0 Anion Gap 7 BUN 26 H Creatinine 2.14 H Est GFR (MDRD) Af Amer 39 L Est GFR (MDRD) Non-Af 32 L BUN/Creatinine Ratio 12.1 Glucose 117 H Lactic Acid 1.0 Calcium 9.5 Total Bilirubin 0.40 AST 16 ALT 22 Alkaline Phosphatase 113 Total Protein 8.5 H Albumin 3.5 Globulin 5.0 H Albumin/Globulin Ratio 0.7 L Urine Color Yellow Urine Clarity Clear Urine pH 6.0 Ur Specific [place] 1.010 Urine Protein 15 H Urine Glucose (UA) Normal Urine Ketones Negative Urine Occult Blood Negative Urine Nitrite Negative Urine Bilirubin Negative Urine Urobilinogen Normal Ur Leukocyte Esterase Negative Urine RBC 0 SEEN Urine WBC 0 SEEN Ur Squamous Epith Cells 0 SEEN Urine Bacteria 0 SEEN Urine Mucus 0 SEEN ABG Data ABG results: ABG 11/24/23 00:24 Specimen Type ART Sample Site L Radial pH 7.33 L Bicarbonate Actual 21.9 L Total CO2 23 Base Excess -4 L O2 Saturation 93 L ABG pCO2 41.8 ABG pO2 71 L Cesar Test Positive O2 Delivery Device Room Air Vent Mode Not entered Radiography Diagnostic Testing: Clinical Impression(s) from Imaging Studies Brain CT 11/23/23 19:24 IMPRESSION: No acute intracranial abnormality. Chronic involutional and ischemic changes of the brain. Electronically Signed: Robert Mccloud MD at 20:37 EST , CT scan of the brain was obtained. There is no acute intracranial abnormality. There are chronic involutional and ischemic changes. This was interpreted by the radiologist and was also independently reviewed by myself. EKG Initial EKG: Attestation: I personally reviewed and interpreted this EKG as follows: Interpretation: Sinus Rhythm (79) and Non-Specific ST Changes Comments: EKG was obtained. On my independent interpretation, it showed a normal sinus rhythm with a rate of 79. AK interval, QRS interval, and QTc intervals were all normal. There is left axis deviation at -37. There are nonspecific ST-T wave changes. Prior EKG tracings: available for review Prior: Unchanged (02/25/2023) Treatment and Re-Evaluation :: Patient was given IV fluids. Patient and family were advised of the findings. Patient is feeling better on reevaluation. Patient was instructed to follow-up with his primary care physician in 5 to 7 days. Patient and family understood and were agreeable with the plan. All questions were answered. Discharge Plan Triage Chief Complaint: Confusion ED Provider: Amanuel Smith Dx/Rx/DC Orders Clinical Impression: Acute confusion, Alzheimer disease Instructions: ED DEMENTIA Alzheimer's, ED Confusion Prescriptions: No Action fluoxetine 40 mg capsule 40 mg PO DAILY doxepin 75 mg capsule 75 mg PO QHS doxycycline hyclate 50 mg tablet 50 mg PO PRN memantine 10 mg tablet 10 mg PO BID donepezil [Aricept] 10 mg tablet 10 mg PO QHS oxcarbazepine 300 mg tablet 300 mg PO BID buspirone 10 mg tablet 10 mg PO TID Rx Instructions: Hold for sedation/lethargy finasteride 5 MG tablet 5 mg PO DAILY carbidopa-levodopa 25-100 mg Tablet 1 tab PO TIDAC 30 Days Qty: 90 11RF tamsulosin 0.4 mg capsule 0.4 mg PO DAILY Primary Care Provider: Carlos Lira Chi Referrals: Carlos Lira Chi, MD [Primary Care Provider] - 5-7 Days Disposition Disposition: Home, Self Care
[2023-11-23 19:40] LABS: Absolute Lymphocyte Count 1.91 X10^3/uL (0.83-4.51); Absolute Neutrophil Count 4.3 X10^3/uL (2.0-7.7); Basophil# 0.09 X10^3/uL; Basophil% 1.2 % (0-1); Eosinophil# 0.43 X10^3/uL; Eosinophils% 5.5 % (0-5); Hematocrit 41.2 % (40-54); Hemoglobin 13.4 g/dL (13.0-16.5); Lymphocyte # 1.91 X10^3/ul (0.83-4.51); Lymphocyte % 24.5 % (19-41); Mean Corp Hgb Conc 32.5 g/dL (32-36); Mean Corpuscular Hgb 30.5 pg (27.0-32.0); Mean Corpuscular Volume 93.8 fL (80-94); Mean Platelet Vol. 10.5 fl (6.2-12.0); Monocyte# 1.02 X10^3/uL; Monocyte% 13.1 % (0-10); NRBC Flagged by Analyzer 0 % (0-5); Neutrophil # 4.29 X10^3/uL (2.7-7.7); Neutrophil % 54.9 % (47-70); Platelet Count 289 K/mm3 (150-450); RBC Distribution Width CV 13.7 % (11.6-14.6); RBC Distribution Width SD 47.5 fl (35.1-43.9); Red Blood Count 4.39 M/mm3 (4.6-6.2); White Blood Count 7.8 K/mm3 (4.4-11.0)
[2023-11-23 19:47] LABS: Partial Thromboplast Time 35.6 Seconds (24.1-36.2)
[2023-11-23 19:52] LABS: International Normalized Ratio 0.9; Prothrombin Time (Protime)PT. 12.5 SECONDS (11.7-14.9)
[2023-11-23 20:20] LABS: ALB/GLOB Ratio 0.7 RATIO (0.9-2.4); AST(SGOT) 16 U/L (15-37); Alanine Aminotransfer ALT/SGPT 22 U/L (16-61); Albumin, Serum 3.5 g/dL (3.2-5.0); Alkaline Phosphatase 113 U/L (45-117); Anion Gap 7 (5-15); BUN 26 mg/dL (7-18); BUN/Creat Ratio 12.1 RATIO (10-20); Calcium,Total 9.5 mg/dL (8.5-10.1); Chloride 110 mmol/L (98-107); Creatinine, Serum 2.14 mg/dL (0.70-1.30); EST Glomerular Filtration Rate 32 mL/min (>60); Est Glom Filt Rate - Afr Amer 39 mL/min (>60); Glucose 117 mg/dL (74-106); Potassium 4.5 mmol/L (3.5-5.1); Protein, Total 8.5 g/dL (6.4-8.2); Sodium Level 140 mmol/L (136-145)
[2023-11-23 20:31] VITALS: BP 156/98; PULSE 76; RESP 16
[2023-11-23] MEDS: 0.9% Normal Saline (1000mL) 1,000 ML 1000 ML IV (20:43)
[2023-11-23 22:04] VITALS: BP 175/97; PULSE 78; RESP 17; O2SAT 95
[2023-11-23 22:06] LABS: Bacteria 0 SEEN /hpf (None Seen); Mucous, Urine 0 SEEN /hpf (<or=2+); Red Blood Cells-Urine 0 SEEN /hpf (0-5); Squamous Epithelial Cells - UA 0 SEEN /hpf (0-5); White Blood Cells 0 SEEN /hpf (0-5)
[2023-11-23 22:17] LABS: Color, Urine Yellow (Yellow); Glucose, Dipstick Normal (Normal); Ketone-Dipstick Negative (Negative); Leukocyte Esterase-Dipstick Negative /ul (Negative); Nitrite-Dipstick Negative (Negative); Occult Blood-Urine Negative /ul (Negative); Protein-Dipstick 15 mg/dl (Negative); Urine Bilirubin Dipstick Negative (Negative); Urine Clarity Clear (Clear); Urine Urobilinogen Normal (Normal)
[2023-11-24 00:27] LABS: Allen Test Positive; Base Excess -4 mmol/L (-2 to +2); Bicarbonate 21.9 mmol/L (22-26); Blood Gas Specimen Type ART; Mode Not entered; O2 Delivery Device Room Air; PO2 71 mmHG (75-100); SITE L Radial; SO2 93 % (95-99); Total Carbon Dioxide 23 mmol/L; pCO2 41.8 mmHg (35-45); pH 7.33 (7.35-7.45)
[2023-11-24 00:55] VITALS: BP 135/53; PULSE 76; RESP 18; O2SAT 95
== END 2023-11-24 00:57 | disposition home or self-care (01) ==
PROVIDERS: Emergency Provider Emergency Medicine; PCP Family Medicine Geriatric Medicine; Visit Provider Emergency Medicine
DX: R41.0 Disorientation, unspecified (principal); G30.9 Alzheimer's disease, unspecified; G40.909 Epilepsy, unspecified, not intractable, without status epilepticus; Z87.891 Personal history of nicotine dependence; Z86.73 Personal history of transient ischemic attack (TIA), and cerebral infarction without residual deficits; I10 Essential (primary) hypertension; E78.5 Hyperlipidemia, unspecified; Z79.899 Other long term (current) drug therapy; N40.0 Benign prostatic hyperplasia without lower urinary tract symptoms; Z95.4 Presence of other heart-valve replacement; Z90.49 Acquired absence of other specified parts of digestive tract; I12.9 Hypertensive chronic kidney disease with stage 1 through stage 4 chronic kidney disease, or unspecified chronic kidney disease; N18.9 Chronic kidney disease, unspecified
CPT/HCPCS: 36600; 70450; 80053; 81001; 82803; 83605; 85025; 85610; 85730; 87631; 93005; 96360; 99284; J7030; P9612; A4216

== ENCOUNTER → 2023-12-01 | Outpatient (CLI) | payer MEDICARE, OTHER, SELFPAY ==
[2023-12-01 10:13] LABS: PTHIN 65.7 pg/mL (18.4-80.1)
[2023-12-01 10:16] LABS: Albumin, Serum 3.4 g/dL (3.2-5.0); BUN 25 mg/dL (7-18); BUN/Creat Ratio 11.8 RATIO (10-20); Calcium,Total 9.5 mg/dL (8.5-10.1); Chloride 112 mmol/L (98-107); Creatinine, Serum 2.11 mg/dL (0.70-1.30); EST Glomerular Filtration Rate 32 mL/min (>60); Est Glom Filt Rate - Afr Amer 39 mL/min (>60); Glucose 121 mg/dL (74-106); Potassium 4.3 mmol/L (3.5-5.1); Sodium Level 142 mmol/L (136-145)
== END | disposition home or self-care (01) ==
PROVIDERS: PCP Family Medicine Geriatric Medicine; Referring Provider Internal Medicine Nephrology; Visit Provider Internal Medicine Nephrology
DX: N18.32 Chronic kidney disease, stage 3b (principal)
CPT/HCPCS: 36415; 80069; 83970

== ENCOUNTER 2024-02-24 20:07 | Observation (INO) | payer MEDICARE, OTHER, SELFPAY ==
[2024-02-24] VITALS (10 sets, daily range): BP systolic 101–141; BP diastolic 64–95; PULSE 62–87; RESP 12–20; TEMP 36.7–36.8; O2SAT 90–100; BMI 36.9; BMI 35.1
--- NOTE | 2024-02-24 20:36 | CT_ITS ---
We are attempting to reach an attending provider to discuss findings. An addendum with communication details will be sent when the communication is complete. INDICATION: STROKE EXAMINATION: CT BRAIN - CT Head Stroke Protocol W/O Contrast Injection TECHNIQUE: Multiple axial images were obtained of the head without intravenous contrast. A radiation dose optimization technique was used for this scan. IV Contrast dosage and agent: None. RADIATION DOSAGE (If Supplied By Facility): CTDIvol = ( 44.99 ) mGy, DLP = ( 846.73 ) mGycm COMPARISON: November 24, 2023 report only FINDINGS: BRAIN PARENCHYMA: No intra- or extra-axial hemorrhage. Moderate periventricular white matter hypointensity likely chronic small vessel ischemia. No evidence of acute infarct. No intracranial mass or mass effect. There is preservation of the ramos/white matter interface. Old infarct in left cerebellar hemisphere CSF SPACES: Moderate atrophy. No hydrocephalus. Basal cisterns are patent. CALVARIUM, SKULL BASE, PARANASAL SINUSES AND MASTOID AIR CELLS: Clear. No discrete lytic or blastic abnormalities. ORBITS: Surgical changes status post cataract surgery Calcific plaquing of the cavernous carotids CT/STROKE Brain/Head without Cont IMPRESSION: Moderate atrophy and periventricular white matter ischemic change. Old left cerebellar infarct. No acute bleed. If concern for acute infarct MRI recommended Electronically Signed: Anthony Boss MD at 20:59 EDT ,
[2024-02-24 20:45] LABS: Bedside Glucose 118 mg/dL (74-106)
--- NOTE | 2024-02-24 20:47 | EDS_ITS ---
HPI History of Present Illness Chief Complaint: Neuro S/Sx Informant: patient, spouse/S.O. and family Narrative Narrative: Presents to ED by EMS spouse family present. 7:30 PM patient suddenly slumped over to the left reports he was dizzy he was slurring when he was talking he threw up multiple times. Feels like room spinning. History of seizure disorder along with TIAs and CVAs. History of Parkinson's and Alzheimer's. He is not on any blood thinners. Spouse reports last TIA was 6 months ago. Aortic valve replacement in the past. Spouse reports bilateral carotid repair in the past. Prior similar symptoms: Yes PFSH PFS Medical History Allergic rhinitis Allergic rhinitis Altered mental status Anemia Bilateral carotid artery stenosis Bipolar 1 disorder BPH (benign prostatic hyperplasia) Chronic kidney disease Chronic renal insufficiency COVID-19 CVA (cerebral vascular accident) (03/2019) Donor, kidney Encephalopathy Essential (primary) hypertension GERD (gastroesophageal reflux disease) Hip fracture, left History of bipolar disorder History of DVT (deep vein thrombosis) History of pulmonary embolism History of small bowel obstruction Hyperlipidemia New onset seizure Non-rheumatic aortic stenosis Osteoarthritis Peripheral arterial occlusive disease Presence of IVC filter Seizure Seizure disorder Thrush of mouth and esophagus Tracheostomy in place Home Medications fluoxetine 40 mg capsule 40 mg PO DAILY DEPRESSION 04/09/21 [History Last Taken Unknown] doxycycline hyclate 50 mg tablet 50 mg PO PRN ATB 10/07/21 [History Last Taken Unknown] donepezil 10 mg tablet (Aricept) 10 mg PO DAILY COGNITION 11/19/21 [History Last Taken Unknown] finasteride 5 mg tablet 5 mg PO DAILY URINARY RETENTION 11/19/21 [History Last Taken Unknown] oxcarbazepine 300 mg tablet 300 mg PO BID SEIZURE 11/19/21 [History Last Taken Unknown] carbidopa 25 mg-levodopa 100 mg tablet 1 tab PO TIDAC 30 days #90 tabs 11/27/21 [Rx Last Taken Unknown] tamsulosin 0.4 mg capsule 0.4 mg PO DAILY 08/25/22 [History Last Taken Unknown] memantine 10 mg tablet 10 mg PO BID 10/02/22 [History Last Taken Unknown] buspirone 15 mg tablet 15 mg PO TID MOOD 02/24/24 [History Last Taken Unknown] doxepin 75 mg capsule 75 mg PO QHS 02/24/24 [History Last Taken Unknown] doxycycline hyclate 50 mg capsule 50 mg PO DAILY 02/24/24 [History Last Taken Unknown] Allergy/AdvReac Type Severity Reaction Status Date / Time penicillin V Allergy Mild hives Verified 02/24/24 20:15 codeine AdvReac Mild upset Verified 02/24/24 20:15 stomach pecan nut AdvReac Mild STOMACH Verified 02/24/24 20:15 CRAMPS divalproex sodium AdvReac Other Verified 02/24/24 20:15 [From Depakote] haloperidol [From Haldol] AdvReac Other Verified 02/23/24 13:35 loratadine [From Claritin] AdvReac Dizziness Verified 02/24/24 20:15 nut - unspecified [nuts] AdvReac Abd Verified 02/24/24 20:15 cramps/diarrhea Family History Brother Diabetes Mother Heart disease Sister Heart disease Surgical History Cataract extraction status of left eye donated kidney H/O arthroscopic knee surgery History of aortic valve replacement with bioprosthetic valve History of cataract surgery History of cholecystectomy History of kidney donation History of left common carotid artery stent placement (04/06/18) History of left heart catheterization (07/19/18) History of right common carotid artery stent placement (05/25/18) History of right nephrectomy (1982) left shoulder surgery Status post arthroscopy of left knee Status post emergency tracheotomy for assistance in breathing Status post left foot surgery Social History housing: assisted living facility Smoking Status: Former smoker Tobacco: How many years used: 10 how long ago did patient quit smoking: About 50yrs second hand exposure: No alcohol intake: never substance use type: does not use caffeine: No seatbelt use: always ROS ROS ED Constitutional Constitutional ED: Denies chills, fever(s) or sweats Eyes Eyes: Denies change in vision ENT ENT ED: Denies dysphagia or sore throat Cardiovascular Cardiovascular: Denies chest pain, leg edema, palpitations or racing heartbeat Respiratory/Chest Respiratory/Chest: Denies cough, dyspnea or dyspnea on exertion Gastrointestinal Gastrointestinal: Reports nausea and vomiting; Denies abdominal pain or diarrhea Genitourinary Genitourinary ED: Denies dysuria, hematuria or urinary frequency Musculoskeletal Musculoskeletal: Denies back pain, extremity pain or neck pain Integumentary Denies rash or wounds Neurologic Neurologic: Reports other Details: Dizziness, speech change ; Denies headache(s), paresthesias or weakness EXAM Physical Exam Const Vital Signs: 02/24/24 20:16 02/24/24 20:08 02/24/24 20:43 Temperature 98.1 F 98.1 F Temperature Source Oral Oral Pulse Rate 83 83 79 Respiratory Rate 12 12 20 H Blood Pressure 121/95 H 121/95 H 136/91 H Blood Pressure Mean 103 103 106 Pulse Ox 93 93 90 Oxygen Delivery Method Room Air Room Air Nasal Cannula Oxygen Flow Rate (L/min) 2 02/24/24 20:51 02/24/24 20:58 02/24/24 21:27 Temperature Temperature Source Pulse Rate 79 87 Respiratory Rate 16 16 Blood Pressure 107/80 141/90 H Blood Pressure Mean 89 107 Pulse Ox 95 96 97 Oxygen Delivery Method Room Air Nasal Cannula Nasal Cannula Oxygen Flow Rate (L/min) 3 3 02/24/24 22:00 Temperature Temperature Source Pulse Rate 73 Respiratory Rate 16 Blood Pressure 101/85 H Blood Pressure Mean 90 Pulse Ox 99 Oxygen Delivery Method Room Air Oxygen Flow Rate (L/min) Positive well nourished and well developed General Appearance ED: well developed and NAD HEENT Reports moist mucous membranes normocephalic and atraumatic Eyes PERRL, EOMs intact bilaterally and conjunctivae normal Eyes Narrative: Horizontal nystagmus bilaterally. General Eye ED: Yes normal appearance of both eyes Neck no lymphadenopathy and supple General: Negative for tenderness Chest Wall Chest: Negative for tenderness Resp normal respiratory effort and normal air movement Effort and Inspection: symmetric chest movement; Negative for respiratory distress Cardio regular rate, regular rhythm and no murmurs Peripheral Pulses: pulses 2+ throughout GI normal to inspection, nondistended, normoactive bowel sounds and non-tender Palpation: Negative for guarding or rebound tenderness present Back/Spine no CVA tenderness and no thoracic nor lumbar tenderness Extremity normal to inspection General Extremety ED: Negative for edema or tenderness General Extremity: Negative for edema Neuro oriented x3, CN's II-XII intact bilaterally and no sensory deficits noted Sensorium / Orientation: awake and alert Skin no rashes or lesions noted and no wounds NIHSS NIHSS Initial: 1a Level of Consciousness: 0 1b LOC Questions (Score 2 if aphasic/stupor): 1 1c LOC Commands (Only score 1st attempt): 0 2 Best Gaze (If aphasic, use reflexive mvmts.): 0 3 Visual: 0 4 Facial Palsy: 0 5 Motor Arm Right (UN = amputation/fusion): 0 5 Motor Arm Left: 0 6 Motor Leg Right: 1 6 Motor Leg Left: 1 7 Limb ataxia (Only + if out of proportion): 0 8 Sensory (Aphasia/stupor=0 or 1, coma=2): 0 9 Best Language: 0 10 Dysarthria (mute, coma=2, intubated=UN): 1 11 Extinction and Inattention (only scored if +): 0 Total Score: 4 MDM MDM MDM Narrative Medical decision making narrative: Interventions / MDM: Differential diagnosis: Vertigo, CVA Diagnosis considered but do not suspect: N/A My EKG interpretation: Sinus rate of 78, no ST changes. Isolated T wave version in aVL. Imaging independently reviewed and interpreted by myself: CT brain: No acute process. 1 view chest x-ray: Pending External documents reviewed: N/A Test considered but not ordered:N/A ED course: Presentation patient NIH of 4 for unable to tell me his age, dysarthria per spouse and bilateral leg drift. He does have history of Alzheimer's and Parkinson's however. Patient symptoms less than 4 and half hours, stroke team initiated. CTs were ordered. Shortly after ordering CT angiograms, radiology called he had a recent GFR of 32. He has not had a CT angiogram since 2013 further evaluation. Will hold off on the angiogram at this time and discussed with stroke neurology after CT. CT brain discussion with radiologist shows no acute process old cerebellar infarct. Teleneurologist evaluated the patient, they did not recommend TNK. They recommended admission for stroke workup. EKG sinus rhythm. Labs are stable chronic kidney disease. Will discuss with hospitalist for admission. 2230: Nursing with difficulty accessing peripheral IV on the patient. I performed ultrasound-guided left distal brachial with 20-gauge. Good draw and flush of dark blood. This was secured with Tegaderm dressing. Patient tolerated procedure well. Re-evaluation: stable Disposition discussed with patient/family/significant other: Patient Case discussed with consulting clinician: Teleneurology This note was generated with [employer] dictation software. It may contain incorrect words, spelling, and punctuation that were not noted in checking the note b efore signing. Lab Data Attestation: I reviewed the patient's lab results. Labs: Laboratory Results - last 24 hr 02/24/24 02/24/24 02/24/24 20:27 20:30 21:24 WBC 8.4 RBC 4.29 L Hgb 13.4 Hct 40.8 MCV 95.1 H MCH 31.2 MCHC 32.8 RDW Std Deviation 47.0 H RDW Coeff of Mally 13.6 Plt Count 289 MPV 10.9 Immature Gran % (Auto) 0.600 Neut % (Auto) 45.3 L Lymph % (Auto) 33.7 [place] % (Auto) 13.2 H Eos % (Auto) 6.2 H Baso % (Auto) 1.0 Absolute Neuts (auto) 3.8 Absolute Lymphs (auto) 2.83 Nucleated RBC % 0 Differential Comment SCANNED PT 12.6 INR 0.9 APTT 32.9 Sodium 137 Potassium 4.2 Chloride 107 Carbon Dioxide 26.0 Anion Gap 4 L BUN 25 H Creatinine 2.12 H Estim Creat Clear Calc 31.91 Est GFR (MDRD) Af Amer 39 L Est GFR (MDRD) Non-Af 32 L BUN/Creatinine Ratio 11.8 Glucose 114 H Calcium 9.3 Troponin I High Sens 13 POC Glucose 118 H Discharge Plan Dx/Rx/DC Orders Clinical Impression: Horizontal nystagmus, Slurred speech, Nausea & vomiting, Acute epidemic vertigo Disposition Disposition: [facility]
[2024-02-24 20:57] LABS: Absolute Lymphocyte Count 2.83 X10^3/uL (0.83-4.51); Absolute Neutrophil Count 3.8 X10^3/uL (2.0-7.7); Basophil# 0.08 X10^3/uL; Eosinophil# 0.52 X10^3/uL; Eosinophils% 6.2 % (0-5); Hematocrit 40.8 % (40-54); Hemoglobin 13.4 g/dL (13.0-16.5); Lymphocyte # 2.83 X10^3/ul (0.83-4.51); Lymphocyte % 33.7 % (19-41); Mean Corp Hgb Conc 32.8 g/dL (32-36); Mean Corpuscular Hgb 31.2 pg (27.0-32.0); Mean Corpuscular Volume 95.1 fL (80-94); Mean Platelet Vol. 10.9 fl (6.2-12.0); Monocyte# 1.11 X10^3/uL; Monocyte% 13.2 % (0-10); NRBC Flagged by Analyzer 0 % (0-5); Neutrophil # 3.81 X10^3/uL (2.7-7.7); Neutrophil % 45.3 % (47-70); POSITIVE COUNT YES; Platelet Count 289 K/mm3 (150-450); RBC Distribution Width CV 13.6 % (11.6-14.6); Red Blood Count 4.29 M/mm3 (4.6-6.2); White Blood Count 8.4 K/mm3 (4.4-11.0)
[2024-02-24 20:58] LABS: Differential Indicated SCAN CRITERIA MET
[2024-02-24 21:08] LABS: Anion Gap 4 (5-15); BUN 25 mg/dL (7-18); BUN/Creat Ratio 11.8 RATIO (10-20); Calcium,Total 9.3 mg/dL (8.5-10.1); Chloride 107 mmol/L (98-107); Creatinine, Serum 2.12 mg/dL (0.70-1.30); EST Glomerular Filtration Rate 32 mL/min (>60); Est Glom Filt Rate - Afr Amer 39 mL/min (>60); Estimated Creatinine Clearance 31.91 ml/min; Glucose 114 mg/dL (74-106); Potassium 4.2 mmol/L (3.5-5.1); Sodium Level 137 mmol/L (136-145); Troponin-I HS 13 pg/mL (3.0-78.0)
[2024-02-24 21:29] LABS: Differential Comment SCANNED
--- NOTE | 2024-02-24 21:40 | PCM.HP.STD ---
[facility] - General General Date of Admission: 02/24/24 Date of Service: 02/24/24 Chief Complaint: Dizziness, Slurred Speech and Nausea with Vomiting. HPI Narrative GASTON VELEZ, is a 78 M with a past medical history of hyperlipidemia, obesity; with BMI of 37 this admission, Parkinson's disease, chronic Alzheimer's dementia; on donepezil and memantine, history of DVT/PE; with history of IVC filter, history of CVA, history of TIA (2018), history of nonrheumatic aortic stenosis; s/p bioprosthetic aortic valve replacement, history of carotid stenosis; status post bilateral carotid endarterectomy (2017) plus left carotid stent (2018), peripheral arterial disease, chronic kidney disease; stage IV with baseline serum creatinine approximately 2.11 mg/dL, history of SBO, seizure disorder; on oxcarbazepine, bipolar disorder type-I; on fluoxetine, doxepin and buspirone, history of left hip fracture, Right kidney donor (1982), BPH, history of allergic rhinitis and osteoarthritis who presents to [facility] ER complaining of dizziness, slurred speech and nausea with vomiting. Mr. Velez is not a fully reliable historian at this time given his history of Alzheimer's disease, dizziness and GI upset so history was taken from chart, medical staff, computer and his at the bedside. According to the records his symptoms began at approximately 7:30 PM when the patient was noted to be slumped over to the left and reporting he was dizzy with the sensation that the room was spinning. He also admits to nausea with several episodes of bilious emesis but there was no blood noted in vomitus. He admits to similar episodes in the past suspicious for possible BPPV with the ER physician noting bilateral nystagmus. There is no report of fever, chills, constipation, diarrhea or seizure activity. In the ER he was diagnosed with possible TIA versus CVA causing dizziness and slurred speech complicated by suspected BPPV with severe vertigo causing nausea and vomiting with clinical evidence of acute metabolic encephalopathy in the setting of chronic Alzheimer's dementia and Parkinson's disease and he was then admitted to the CDU under observation status for status expected to be less than 2 midnights. [facility] Medical History Allergic rhinitis Allergic rhinitis Altered mental status Anemia Bilateral carotid artery stenosis Bipolar 1 disorder BPH (benign prostatic hyperplasia) Chronic kidney disease Chronic renal insufficiency COVID-19 CVA (cerebral vascular accident) (03/2019) Donor, kidney Encephalopathy Essential (primary) hypertension GERD (gastroesophageal reflux disease) Hip fracture, left History of bipolar disorder History of DVT (deep vein thrombosis) History of pulmonary embolism History of small bowel obstruction Hyperlipidemia New onset seizure Non-rheumatic aortic stenosis Osteoarthritis Peripheral arterial occlusive disease Presence of IVC filter Seizure Seizure disorder Thrush of mouth and esophagus Tracheostomy in place Home Medications fluoxetine 40 mg capsule 40 mg PO DAILY DEPRESSION 04/09/21 [History Last Taken Unknown] doxycycline hyclate 50 mg tablet 50 mg PO PRN ATB 10/07/21 [History Last Taken Unknown] donepezil 10 mg tablet (Aricept) 10 mg PO DAILY COGNITION 11/19/21 [History Last Taken Unknown] finasteride 5 mg tablet 5 mg PO DAILY URINARY RETENTION 11/19/21 [History Last Taken Unknown] oxcarbazepine 300 mg tablet 300 mg PO BID SEIZURE 11/19/21 [History Last Taken Unknown] carbidopa 25 mg-levodopa 100 mg tablet 1 tab PO TIDAC 30 days #90 tabs 11/27/21 [Rx Last Taken Unknown] tamsulosin 0.4 mg capsule 0.4 mg PO DAILY 08/25/22 [History Last Taken Unknown] memantine 10 mg tablet 10 mg PO BID 10/02/22 [History Last Taken Unknown] buspirone 15 mg tablet 15 mg PO TID MOOD 02/24/24 [History Last Taken Unknown] doxepin 75 mg capsule 75 mg PO QHS 02/24/24 [History Last Taken Unknown] doxycycline hyclate 50 mg capsule 50 mg PO DAILY 02/24/24 [History Last Taken Unknown] Allergy/AdvReac Type Severity Reaction Status Date / Time penicillin V Allergy Mild hives Verified 02/24/24 20:15 codeine AdvReac Mild upset Verified 02/24/24 20:15 stomach pecan nut AdvReac Mild STOMACH Verified 02/24/24 20:15 CRAMPS divalproex sodium AdvReac Other Verified 02/24/24 20:15 [From Depakote] haloperidol [From Haldol] AdvReac Other Verified 02/23/24 13:35 loratadine [From Claritin] AdvReac Dizziness Verified 02/24/24 20:15 nut - unspecified [nuts] AdvReac Abd Verified 02/24/24 20:15 cramps/diarrhea Family History Brother Diabetes Mother Heart disease Sister Heart disease Surgical History Cataract extraction status of left eye donated kidney H/O arthroscopic knee surgery History of aortic valve replacement with bioprosthetic valve History of cataract surgery History of cholecystectomy History of kidney donation History of left common carotid artery stent placement (04/06/18) History of left heart catheterization (07/19/18) History of right common carotid artery stent placement (05/25/18) History of right nephrectomy (1982) left shoulder surgery Status post arthroscopy of left knee Status post emergency tracheotomy for assistance in breathing Status post left foot surgery Social History housing: assisted living facility Smoking Status: Former smoker Tobacco: How many years used: 10 how long ago did patient quit smoking: About 50yrs second hand exposure: No alcohol intake: never substance use type: does not use caffeine: No seatbelt use: always ROS ROS Narrative Patient has acute confusion in the setting of chronic Alzheimer's dementia and therefore he cannot complete a review of systems at this time. Vital Signs Vital Signs Vital Signs: 02/24/24 20:16 02/24/24 20:08 02/24/24 20:43 Temperature 98.1 F 98.1 F Temperature Source Oral Oral Pulse Rate 83 83 79 Respiratory Rate 12 12 20 H Blood Pressure 121/95 H 121/95 H 136/91 H Blood Pressure Mean 103 103 106 Pulse Ox 93 93 90 Oxygen Delivery Method Room Air Room Air Nasal Cannula Oxygen Flow Rate (L/min) 2 02/24/24 20:51 02/24/24 20:58 02/24/24 21:27 Temperature Temperature Source Pulse Rate 79 87 Respiratory Rate 16 16 Blood Pressure 107/80 141/90 H Blood Pressure Mean 89 107 Pulse Ox 95 96 97 Oxygen Delivery Method Room Air Nasal Cannula Nasal Cannula Oxygen Flow Rate (L/min) 3 3 Weight Weight: 229 lb 0.964 oz Body Mass Index (BMI) 36.9 Physical Exam Const alert Constitutional Narrative: Patient is confused and obese but according to his he is showing signs of improvement. General Appearance: cooperative Orientation / Consciousness: confused and disoriented HEENT normocephalic, head/scalp atraumatic, hearing grossly normal bilaterally and moist oral mucous membranes Eyes PERRL and EOMs intact bilaterally Neck no lymphadenopathy and supple Resp normal respiratory effort, no retractions, no use of accessory muscles and clear to auscultation bilaterally Cardio regular rate and regular rhythm GI normal to inspection, nondistended, normoactive bowel sounds, soft to palpation, non-tender and non-distended GI Narrative: Obese. Extremity normal to inspection and full ROM Skin Skin Narrative: Patient has no evidence of rash. Neuro CN's II-XII intact bilaterally and moves all extremities Neuro Narrative: Speech slurred with ongoing confusion. Sensorium / Orientation: awake, alert and oriented to person Psych affect normal Results Medical Records Data Attestation: I reviewed the patient's medical records Lab / Micro Data Attestation: I reviewed the patient's lab results. 02/24/24 20:30 02/24/24 20:30 Labs: Laboratory Results - last 24 hr 02/24/24 20:27: POC Glucose 118 H 02/24/24 20:30: WBC 8.4, RBC 4.29 L, Hgb 13.4, Hct 40.8, MCV 95.1 H, MCH 31.2, MCHC 32.8, RDW Std Deviation 47.0 H, RDW Coeff of Mally 13.6, Plt Count 289, MPV 10.9, Immature Gran % (Auto) 0.600, Neut % (Auto) 45.3 L, Lymph % (Auto) 33.7, [place]nam % (Auto) 13.2 H, Eos % (Auto) 6.2 H, Baso % (Auto) 1.0, Absolute Neuts (auto) 3.8, Absolute Lymphs (auto) 2.83, Nucleated RBC % 0, Differential Comment SCANNED, Sodium 137, Potassium 4.2, Chloride 107, Carbon Dioxide 26.0, Anion Gap 4 L, BUN 25 H, Creatinine 2.12 H, Estim Creat Clear Calc 31.91, Est GFR (MDRD) Af Amer 39 L, Est GFR (MDRD) Non-Af 32 L, BUN/Creatinine Ratio 11.8, Glucose 114 H, Calcium 9.3, Troponin I High Sens 13 Imaging [facility] [address] [place], [place] [id number] Chest 1 View MR#: [id number] Acct: [id number] Name: GASTON VELEZ Rep #: [id number] : 1945 M 78 From: Eric Haynes MD PCP: Dr. Carlos Lira MD Status: ADM RIN Study: Chest 1 View Date of Exam: 02/24/24 Exam# [id number] Ordering Dr: Elmer Mcgill DO INDICATION: Neuro deficit, acute, stroke suspected EXAMINATION/TECHNIQUE: X-RAY - XR Chest 1 View COMPARISON: None. FINDINGS: LINES/DEVICES: None. LUNGS: Low lung volumes. No pulmonary edema or focal airspace consolidation. Mild scarring left lung. No sizable pleural effusion. No pneumothorax detected. MEDIASTINUM AND CARDIOVASCULAR STRUCTURES: Heart size within normal limits. Status post sternotomy and aortic valve replacement. BONES AND SOFT TISSUES: Skeletal degenerative changes with mild scoliotic curvature of spine. Left humeral head rotator cuff anchor screw in place. RAD/Chest 1 View IMPRESSION: Mild hypoventilatory changes Electronically Signed: Eric Haynes MD at 23:53 EDT , CC: Dr. Carlos Lira MD; Dr. Elmer Mcgill DO ~ Siding Applicator: Signed [facility] [address] [place] [id number] STROKE Brain/Head without Cont MR#: [id number] Acct: [id number] Name: GASTON VELEZ Rep #: [id number] : 1945 78 From: Anthony Boss MD PCP: Dr. Carlos Lira MD Status: ADM RIN Study: STROKE Brain/Head without Cont Date of Exam: 02/24/24 Exam# [id number] Ordering Dr: Elmer Mcgill DO INDICATION: STROKE EXAMINATION: CT BRAIN - CT Head Stroke Protocol W/O Contrast Injection TECHNIQUE: Multiple axial images were obtained of the head without intravenous contrast. A radiation dose optimization technique was used for this scan. IV Contrast dosage and agent: None. RADIATION DOSAGE (If Supplied By Facility): CTDIvol = ( 44.99 ) mGy, DLP = ( 846.73 ) mGycm COMPARISON: November 24, 2023 report only FINDINGS: BRAIN PARENCHYMA: No intra- or extra-axial hemorrhage. Moderate periventricular white matter hypointensity likely chronic small vessel ischemia. No evidence of acute infarct. No intracranial mass or mass effect. There is preservation of the ramos/white matter interface. Old infarct in left cerebellar hemisphere CSF SPACES: Moderate atrophy. No hydrocephalus. Basal cisterns are patent. CALVARIUM, SKULL BASE, PARANASAL SINUSES AND MASTOID AIR CELLS: Clear. No discrete lytic or blastic abnormalities. ORBITS: Surgical changes status post cataract surgery Calcific plaquing of the cavernous carotids CT/STROKE Brain/Head without Cont IMPRESSION: Moderate atrophy and periventricular white matter ischemic change. Old left cerebellar infarct. No acute bleed. If concern for acute infarct MRI recommended N.B. : The above Results were Read Back by Anthony Boss MD to Elmer Mcgill DO, and understanding confirmed on 02/24/2024 21:00:52 (ET). Electronically Signed: Anthony Boss MD at 20:59 EDT Reading Location ID and State: [facility] [place] Tel , Service support , CC: Dr. Carlos Lira MD; Dr. Elmer Mcgill DO ~ Siding Applicator: Signed Assessment & Plan Assessment/Plan (1) TIA (transient ischemic attack): (2) Acute severe vertigo: (3) Nausea & vomiting: QUALIFIERS: Vomiting type: unspecified Qualified Code(s): R11.2 - Nausea with vomiting, unspecified (4) Slurred speech: (5) Acute metabolic encephalopathy: (6) Alzheimer disease: (7) Horizontal nystagmus: (8) History of aortic valve replacement with bioprosthetic valve: (9) Bilateral carotid artery stenosis: (10) History of CVA (cerebrovascular accident): PLAN: Plan 1. TIA versus CVA causing dizziness and slurred speech in the setting of known prior TIA/CVA - Admit to CDU under observation status. Check MRI of the brain to evaluate for possible CVA. Check carotid Doppler to evaluate for stenosis. Check echocardiogram to evaluate LVEF. Check EEG with history of seizure disorder. Start baby aspirin and statin. Check lipid profile and hemoglobin A1c to complete his metabolic evaluation. [facility]rology already on case with help greatly appreciated. 2. Suspected BPPV with severe vertigo causing nausea and vomiting with bilateral nystagmus complicating #1 - Give Antivert as needed for breakthrough vertigo symptoms. Give Zofran IV as needed to control nausea and vomiting. Thankfully, patient's vertigo sensation, dizziness and nausea with vomiting have resolved and he is feeling much better at this time. 3. Acute metabolic encephalopathy in the setting of chronic Alzheimer's dementia and Parkinson's disease compounding #1 & #2 - Check B12, folate, UDS and TSH to evaluate for potential reversible causes of confusion. Otherwise, continue supportive care and monitor for improvement. 4. History of nonrheumatic aortic stenosis; s/p bioprosthetic aortic valve replacement - Noted. Echocardiogram pending. 5. History of carotid stenosis; status post bilateral carotid endarterectomy (2018) plus left carotid stent (2019) - Noted. Carotid Doppler pending. 6. History of seizure disorder - Resume Oxcarbazepine as previous plus check EEG. 7. Hyperlipidemia - Resume statin and check lipid profile this admission in light of #1. 8. Obesity; with BMI of 37 this admission - Weight loss will be recommended. 9. History of DVT/PE; with history of IVC filter - Noted. 10. Peripheral arterial disease - Noted. 11. History of SBO - Noted. 12. Bipolar disorder type-I; on fluoxetine, doxepin and buspirone - Continue home regimen as previous 13. Right kidney donor (1982) with subsequent chronic kidney disease stage IV - Stable with serum creatinine of 2.12 mg/dL in his normal range at baseline. 14. History of left hip fracture - Noted. 15. BPH - Continue current management. 16. History of allergic rhinitis - Noted. 17. Osteoarthritis - Give Tylenol as needed. 18. DVT prophylaxis - Lovenox 30 mg sq daily. Total time: Approximately 85 minutes. Charges/Coding Visit Charges OBSV E&M: 82704 Observ/hosp same date L3
[2024-02-24 21:57] LABS: International Normalized Ratio 0.9; Partial Thromboplast Time 32.9 Seconds (24.1-36.2); Prothrombin Time (Protime)PT. 12.6 SECONDS (11.7-14.9)
--- NOTE | 2024-02-24 22:05 | ED.RN ---
Dr Mcgill made aware that patient has been poked by 5 RN's with 3-4 attempts made by each, unsuccessful at obtaining IV acess at this time.
--- NOTE | 2024-02-24 22:18 | CDU_ITS ---
Reason For Study: Stenosis Rt. Velocities/BP Lt. Velocities/BP Prox CCA 77.8/11.6 cm/sec. Prox CCA 90.5/20.1 cm/sec. Mid CCA 90/21.1 cm/sec. Mid CCA 123.2/31.1 cm/sec. Dist CCA 81.5/19.2 cm/sec. Dist CCA 102.3/23.7 cm/sec. Prox ICA 71.8/18.8 cm/sec. Prox ICA 74/18.8 cm/sec. Mid ICA 71.8/20.1 cm/sec. Mid ICA 83.9/20 cm/sec. Dist ICA 85.8/22.7 cm/sec. Dist ICA 117/29.2 cm/sec. Rt. ICA/CCA = 1.05. Lt. ICA/CCA = 1.14. Prox ECA 121.1/9.7 cm/sec. Prox ECA 160.9/9.4 cm/sec. Rt. Vert. 29.4/13 cm/sec. Lt. Vert. 41/6.9 cm/sec. Right Extracranial There is homogeneous, smooth atherosclerotic plaque noted in the right common carotid artery. There is heterogeneous, irregular atherosclerotic plaque noted in the right internal carotid artery. Stent noted in the right CCA distal-ICA mid. There is heterogeneous, irregular atherosclerotic plaque noted in the right external carotid artery. Antegrade flow is noted in the right vertebral artery. Left Extracranial There is homogeneous, smooth atherosclerotic plaque noted in the left common carotid artery. There is heterogeneous, irregular atherosclerotic plaque noted in the left internal carotid artery. Stent noted in the left CCA distal-ICA mid. There is heterogeneous, irregular atherosclerotic plaque noted in the left external carotid artery. Antegrade flow is noted in the left vertebral artery. Procedure Carotid Duplex 61505. This is a Carotid Duplex examination using B-mode, color flow and specral Doppler. Exam performed portable in patient room. VL/Carotid Duplex Ultrasound Interpretation Summary Mild (<50%) stenosis right extracranial internal carotid. Mild (<50%) stenosis left extracranial internal carotid. Patent and antegrade vertebrals bilaterally. Ordering Physician: Jovi Man Referring Physician: Carlos Lira Chi Performed By: Leonarda Lopez RVT
--- NOTE | 2024-02-24 22:54 | ED.RN ---
Dr Mcgill obtained an 20g left brachial IV via ultrasound.
[2024-02-24 23:00] LABS: Thyroid Stim Hormone (TSH) 2.83 uIU/mL (0.358-3.74)
--- NOTE | 2024-02-24 23:00 | RAD_ITS ---
INDICATION: Neuro deficit, acute, stroke suspected EXAMINATION/TECHNIQUE: X-RAY - XR Chest 1 View COMPARISON: None. FINDINGS: LINES/DEVICES: None. LUNGS: Low lung volumes. No pulmonary edema or focal airspace consolidation. Mild scarring left lung. No sizable pleural effusion. No pneumothorax detected. MEDIASTINUM AND CARDIOVASCULAR STRUCTURES: Heart size within normal limits. Status post sternotomy and aortic valve replacement. BONES AND SOFT TISSUES: Skeletal degenerative changes with mild scoliotic curvature of spine. Left humeral head rotator cuff anchor screw in place. RAD/Chest 1 View IMPRESSION: Mild hypoventilatory changes Electronically Signed: Eric Haynes MD at 23:53 EDT ,
[2024-02-24] MEDS: Ondansetron 4 MG/2 ML Vial IV (23:04)
[2024-02-24 23:08] LABS: Hemoglobin A1c 5.6 % (3.8-5.6)
[2024-02-24 23:16] LABS: Alcohol, Blood (Medical)-Serum < 3.0 mg/dL
--- NOTE | 2024-02-24 23:37 | ED.RN ---
per Dr. Mcgill, okay to discontinue NIHSS
[2024-02-25] VITALS: BP 109/69; PULSE 87; RESP 15; TEMP 36.4; O2SAT 94
[2024-02-25 00:42] VITALS: BMI 35.1
[2024-02-25] MEDS: 0.9% Normal Saline (1000mL) 1,000 ML 70 ML IV (01:02)
[2024-02-25] MEDS: Aspirin 81 MG TAB.CHEW PO (01:02)
[2024-02-25 01:27] LABS: Amphetamine Urine VISTA NEGATIVE (<1000 ng/mL); Barbiturate Urine VISTA NEGATIVE (< 200 ng/mL); Benzodiazepine Urine VISTA NEGATIVE (< 200 ng/mL); Cocaine Urine VISTA NEGATIVE (< 300 ng/mL); Ecstacy Urine VISTA NEGATIVE (< 500 ng/mL); Methadone Urine VISTA NEGATIVE (< 300 ng/mL); PCP Urine VISTA NEGATIVE (< 25 ng/mL); THC Urine VISTA NEGATIVE (< 50 ng/mL); Vista UDS pH Range 5
[2024-02-25 04:00] VITALS: BP 131/88; PULSE 85; RESP 18; TEMP 36.9; O2SAT 95
[2024-02-25] MEDS: Carbidopa/Levodopa 25/100 Tablet PO ×2 (06:03→10:23)
[2024-02-25] MEDS: busPIRone 15 MG TABLET PO ×2 (06:03→13:52)
[2024-02-25 07:03] LABS: Cholesterol 391 mg/dL (200); High Density Lipoprotein 35 mg/dL; Triglycerides 484 mg/dL
[2024-02-25 07:36] VITALS: O2SAT 96
[2024-02-25 08:00] VITALS: BP 133/97; PULSE 83; RESP 16; TEMP 36.8; O2SAT 94
--- NOTE | 2024-02-25 09:00 | MRI_ITS ---
EXAM: MR HEAD WITHOUT INTRAVENOUS CONTRAST CLINICAL INDICATION: TIA versus CVA. TECHNIQUE: Multiplanar and multisequence MR images of the brain were obtained without intravenous contrast. COMPARISON: CT brain 02/24/2024 FINDINGS: BRAIN AND EXTRA-AXIAL SPACES: Increased T2 signal intensity within the cerebral white matter suggestive of chronic microvascular change. Small left cerebellar cortical infarct again noted. Prominence of the cortical sulci and ventricles related to volume loss change. No hemorrhage or mass effect. No restricted diffusion to indicate acute ischemia. Basilar cisterns are patent. SELLA: Normal. Normal sella turcica, pituitary gland, infundibular stalk, optic chiasm and hypothalamus. AUDITORY SYSTEM: Normal. The internal auditory canals are patent. BONES/JOINTS: Intact calvarium. SINUSES: Unremarkable as visualized. Clear. MASTOID AIR CELLS: Unremarkable as visualized. Clear. ORBITS: Unremarkable as visualized. Both globes, extraocular muscles, optic nerves and retrobulbar fat appear unremarkable. VASCULATURE: Unremarkable as visualized. Normal flow voids in the major intracranial circulation. MRI/Brain without Contrast IMPRESSION: 1. No acute intracranial abnormality. 2. Senescent changes. Electronically Signed: Andre Rm MD at 11:01 EDT ,
[2024-02-25 10:15] LABS: Vitamin B12 549 pg/mL (211-911)
[2024-02-25] MEDS: Tamsulosin HCl 0.4 MG Capsule PO (10:22)
[2024-02-25] MEDS: Finasteride 5 MG Tablet PO (10:22)
[2024-02-25] MEDS: Fluoxetine HCl 40 MG CAPSULE PO (10:22)
[2024-02-25] MEDS: Memantine Hydrochloride 10 MG Tablet PO (10:22)
[2024-02-25] MEDS: Donepezil HCl 10 MG Tablet PO (10:22)
[2024-02-25] MEDS: OXcarbazepine 300 MG Tablet PO (10:22)
[2024-02-25 11:16] VITALS: BMI 35.1
--- NOTE | 2024-02-25 11:54 | CASEMGMT ---
SW did not complete a PHQ 9 with patient. As per RN patient is A&OX1-2. Edwige Kimbrough QUALITY CONTROL CHECKER JOHN
[2024-02-25 12:00] VITALS: BP 134/84; PULSE 85; RESP 16; TEMP 36.2; O2SAT 92
--- NOTE | 2024-02-25 12:04 | STROKE.CONS ---
Assessment and Plan: Stroke Assessment/Plan GASTON FLETCHER, is a 78 year old male with Alzheimers, Parkinsons diseae, CI, GERD HL, seizure, DVT s/p IVC filter, bipolar who presents with vertigo. At baseline patient is wheelchair bound, lives with his who assists with ADLs (dressing, bathing, etc) and at baseline does not know his age or the month. On 02/24/2024 at 730p he developed dizziness (vertigo) and vomiting. reports he had vertigo 4 years ago, it resolved on its own. Patient presented to [facility]. CT brain negative. He was admitted. This morning patient feels at baseline. reports he had some dizziness earlier but it appears resolved. MRI brain DWI negative. Neurological examination shows baseline dementia, otherwise nonfocal, NIHSS-2 (?-2). ASSESSMENT/PLAN: Peripheral vertigo 1) Ruled out for stroke with negative MRI brain. Recommend outpatient vestibular therapy. No further stroke work-up recommended. We will sign off, please call us with further stroke related questions. HPI Consult Data Date of Consult: 02/25/24 HPI Narrative HPI Narrative: GASTON FLETCHER, is a 78 year old male with Alzheimers, Parkinsons diseae, CI, GERD HL, seizure, DVT s/p IVC filter, bipolar who presents with vertigo. At baseline patient is wheelchair bound, lives with his who assists with ADLs (dressing, bathing, etc) and at baseline does not know his age or the month. On 02/24/2024 at 730p he developed dizziness (vertigo) and vomiting. reports he had vertigo 4 years ago, it resolved on its own. Patient presented to [facility]. CT brain negative. He was admitted. This morning patient feels at baseline. reports he had some dizziness earlier but it appears resolved. MRI brain DWI negative. [facility] Medical History Allergic rhinitis Allergic rhinitis Altered mental status Anemia Bilateral carotid artery stenosis Bipolar 1 disorder BPH (benign prostatic hyperplasia) Chronic kidney disease Chronic renal insufficiency COVID-19 CVA (cerebral vascular accident) (03/2019) Donor, kidney Encephalopathy Essential (primary) hypertension GERD (gastroesophageal reflux disease) Hip fracture, left History of bipolar disorder History of DVT (deep vein thrombosis) History of pulmonary embolism History of small bowel obstruction Hyperlipidemia New onset seizure Non-rheumatic aortic stenosis Osteoarthritis Peripheral arterial occlusive disease Presence of IVC filter Seizure Seizure disorder Thrush of mouth and esophagus Tracheostomy in place Home Medications fluoxetine 40 mg capsule 40 mg PO DAILY DEPRESSION 04/09/21 [History Last Taken Unknown] doxycycline hyclate 50 mg tablet 50 mg PO PRN ATB 10/07/21 [History Last Taken Unknown] donepezil 10 mg tablet (Aricept) 10 mg PO DAILY COGNITION 11/19/21 [History Last Taken Unknown] finasteride 5 mg tablet 5 mg PO DAILY URINARY RETENTION 11/19/21 [History Last Taken Unknown] oxcarbazepine 300 mg tablet 300 mg PO BID SEIZURE 11/19/21 [History Last Taken Unknown] carbidopa 25 mg-levodopa 100 mg tablet 1 tab PO TIDAC 30 days #90 tabs 11/27/21 [Rx Last Taken Unknown] tamsulosin 0.4 mg capsule 0.4 mg PO DAILY 08/25/22 [History Last Taken Unknown] memantine 10 mg tablet 10 mg PO BID 10/02/22 [History Last Taken Unknown] buspirone 15 mg tablet 15 mg PO TID MOOD 02/24/24 [History Last Taken Unknown] doxepin 75 mg capsule 75 mg PO QHS 02/24/24 [History Last Taken Unknown] doxycycline hyclate 50 mg capsule 50 mg PO DAILY 02/24/24 [History Last Taken Unknown] Allergy/AdvReac Type Severity Reaction Status Date / Time penicillin V Allergy Mild hives Verified 02/24/24 20:15 codeine AdvReac Mild upset Verified 02/24/24 20:15 stomach pecan nut AdvReac Mild STOMACH Verified 02/24/24 20:15 CRAMPS divalproex sodium AdvReac Other Verified 02/24/24 20:15 [From Depakote] haloperidol [From Haldol] AdvReac Other Verified 02/23/24 13:35 loratadine [From Claritin] AdvReac Dizziness Verified 02/24/24 20:15 nut - unspecified [nuts] AdvReac Abd Verified 02/24/24 20:15 cramps/diarrhea Family History Brother Diabetes Mother Heart disease Sister Heart disease Surgical History Cataract extraction status of left eye donated kidney H/O arthroscopic knee surgery History of aortic valve replacement with bioprosthetic valve History of cataract surgery History of cholecystectomy History of kidney donation History of left common carotid artery stent placement (04/06/18) History of left heart catheterization (07/19/18) History of right common carotid artery stent placement (05/25/18) History of right nephrectomy (1982) left shoulder surgery Status post arthroscopy of left knee Status post emergency tracheotomy for assistance in breathing Status post left foot surgery Social History housing: assisted living facility Smoking Status: Former smoker Tobacco: How many years used: 10 how long ago did patient quit smoking: About 50yrs second hand exposure: No alcohol intake: never substance use type: does not use caffeine: No seatbelt use: always Vital Signs Vital Signs Vital Signs: 02/24/24 20:16 02/24/24 20:08 02/24/24 20:43 Temperature 98.1 F 98.1 F Temperature Source Oral Oral Pulse Rate 83 83 79 Respiratory Rate 12 12 20 H Respiratory Effort Respiratory Depth Respiratory Pattern Blood Pressure 121/95 H 121/95 H 136/91 H Blood Pressure Mean 103 103 106 Blood Pressure Source Blood Pressure Position Blood Pressure Location Pulse Ox 93 93 90 Oxygen Delivery Method Room Air Room Air Nasal Cannula Oxygen Flow Rate (L/min) 2 02/24/24 20:51 02/24/24 20:58 02/24/24 21:27 Temperature Temperature Source Pulse Rate 79 87 Respiratory Rate 16 16 Respiratory Effort Respiratory Depth Respiratory Pattern Blood Pressure 107/80 141/90 H Blood Pressure Mean 89 107 Blood Pressure Source Blood Pressure Position Blood Pressure Location Pulse Ox 95 96 97 Oxygen Delivery Method Room Air Nasal Cannula Nasal Cannula Oxygen Flow Rate (L/min) 3 3 02/24/24 22:00 02/24/24 22:30 02/24/24 23:00 Temperature Temperature Source Pulse Rate 73 79 64 Respiratory Rate 16 16 16 Respiratory Effort Respiratory Depth Respiratory Pattern Blood Pressure 101/85 H 112/88 H Blood Pressure Mean 90 96 Blood Pressure Source Blood Pressure Position Blood Pressure Location Pulse Ox 99 91 100 Oxygen Delivery Method Room Air Nasal Cannula Nasal Cannula Oxygen Flow Rate (L/min) 3 2 02/24/24 23:36 02/25/24 00:00 02/25/24 00:37 Temperature 98.2 F 97.5 F L Temperature Source Temporal Pulse Rate 62 87 Respiratory Rate 16 15 Respiratory Effort Normal Non-Labored Respiratory Depth Normal Respiratory Pattern Irregular Blood Pressure 118/64 109/69 Blood Pressure Mean 82 82 Blood Pressure Source Monitor Blood Pressure Position Left Lateral Blood Pressure Location Right Arm Pulse Ox 100 94 Oxygen Delivery Method Room Air Room Air Oxygen Flow Rate (L/min) 02/25/24 04:00 02/25/24 07:36 02/25/24 08:00 Temperature 98.4 F 98.3 F Temperature Source Temporal Temporal Pulse Rate 85 83 Respiratory Rate 18 16 Respiratory Effort Respiratory Depth Respiratory Pattern Blood Pressure 131/88 H 133/97 H Blood Pressure Mean 102 109 Blood Pressure Source Monitor Monitor Blood Pressure Position Semi-Fowlers Semi-Fowlers Blood Pressure Location Right Arm Right Arm Pulse Ox 95 96 94 Oxygen Delivery Method Room Air Room Air Room Air Oxygen Flow Rate (L/min) 02/25/24 10:25 Temperature Temperature Source Pulse Rate Respiratory Rate Respiratory Effort Normal Non-Labored Respiratory Depth Normal Respiratory Pattern Normal Blood Pressure Blood Pressure Mean Blood Pressure Source Blood Pressure Position Blood Pressure Location Pulse Ox Oxygen Delivery Method Room Air Oxygen Flow Rate (L/min) Weight Weight: 98.7 kg Body Mass Index (BMI) 35.1 EEG Results Procedure Details EEG Procedure Details: GASTON FLETCHER is a 78 year old M with a past medical history of , who presents for evaluation of Electroencephalogram on DATE at TIME NIHSS NIHSS Nursing Documentation NIHSS Nursing Documentation: NIHSS: Ischemic Stroke/TIA Start: 02/24/24 23:48 Text: For ICU Patients: NIH sroke scale at Status: Complete presentation and every 2 hours or with change in RN caregiver Freq: [id number] Protocol: Activity Type Activity Date Activity User E-sign Co-sign Detail Recorded Client Recorded Date Recorded By Document 02/25/24 00:00 TLV Desktop 02/25/24 00:27 TLV 02/25/24 00:00 NIH Stroke Scale [NIHSS] A score of 0 is normal or asymptomatic . Total possible score is 42. Inpatient: RN or Physician to activate a stroke alert for onset of new stroke symptoms or with NIHSS increase >/= 3 points. Following change in neurological status, NIHSS will be performed per physician order or more frequently PRN. -1a. Level of Consciousness Alert; keenly responsive -1b. LOC Questions Answers BOTH questions correctly. -1c. LOC Commands Performs both tasks correctly . -2. Best Gaze Normal -3. Visual No visual loss -4. Facial Palsy Normal symmetrical movements -5a. Left Arm No drift; arm holds 90 (or 45 ) degrees for full 10 seconds -5b. Right Arm No drift; arm holds 90 (or 45 ) degrees for full 10 seconds -6a. Left Leg No drift; leg holds 30-degree position for full 5 seconds -6b. Right Leg No drift; leg holds 30-degree position for full 5 seconds -7. Limb Ataxia Absent -8. Sensory Normal; no sensory loss -9. Best Language No aphasia; normal -10. Dysarthria Mild-to- moderate dysarthria; -11. Extinction and Inattention No abnormality -Total 1 Query Text:A score of 0 is normal or asymptomatic. Total possible score is 42 . ED: Notify Physician for NIHSS increase by > / = 3 points. Inpatient: RN or Physician to activate a stroke alert for NIHSS increase of > / = 3 points. Coma Scale [Assess] -Eye Opening Spontaneous -Motor Obeys Commands -Verbal Confused [Total] -Coma Scale Total 14 NIHSS: Ischemic Stroke/TIA Start: 02/24/24 23:48 Text: For PCU Patients: NIH and Neuro Check every 4 Status: Active hours, PRN and with change in RN caregiver. Freq: [id number] Protocol: Activity Type Activity Date Activity User E-sign Co-sign Detail Recorded Client Recorded Date Recorded By Document 02/25/24 08:00 MS Desktop 02/25/24 10:09 MS 02/25/24 08:00 NIH Stroke Scale [NIHSS] A score of 0 is normal or asymptomatic . Total possible score is 42. Inpatient: RN or Physician to activate a stroke alert for onset of new stroke symptoms or with NIHSS increase >/= 3 points. Following change in neurological status, NIHSS will be performed per physician order or more frequently PRN. -1a. Level of Consciousness Alert; keenly responsive -1b. LOC Questions Answers BOTH questions correctly. -1c. LOC Commands Performs both tasks correctly . -2. Best Gaze Normal -3. Visual No visual loss -4. Facial Palsy Normal symmetrical movements -5a. Left Arm No drift; arm holds 90 (or 45 ) degrees for full 10 seconds -5b. Right Arm No drift; arm holds 90 (or 45 ) degrees for full 10 seconds -6a. Left Leg No drift; leg holds 30-degree position for full 5 seconds -6b. Right Leg No drift; leg holds 30-degree position for full 5 seconds -7. Limb Ataxia Absent -8. Sensory Normal; no sensory loss -9. Best Language No aphasia; normal -10. Dysarthria Normal -11. Extinction and Inattention No abnormality -Total 0 Query Text:A score of 0 is normal or asymptomatic. Total possible score is 42 . ED: Notify Physician for NIHSS increase by > / = 3 points. Inpatient: RN or Physician to activate a stroke alert for NIHSS increase of > / = 3 points. Coma Scale [Assess] -Eye Opening Spontaneous -Motor Obeys Commands -Verbal Confused [Total] -Coma Scale Total 14 NIHSS 1a. Level of Consciousness: Alert; keenly responsive 1b. LOC Questions: Answers neither question correctly. 1c. LOC Commands: Performs both tasks correctly. 2. Best Gaze: Normal 3. Visual: No visual loss 4. Facial Palsy: Normal symmetrical movements 5a. Left Arm: No drift; arm holds 90 (or 45) degrees for full 10 seconds 5b. Right Arm: No drift; arm holds 90 (or 45) degrees for full 10 seconds 6a. Left Leg: No drift; leg holds 30-degree position for full 5 seconds 6b. Right Leg: No drift; leg holds 30-degree position for full 5 seconds 7. Limb Ataxia: Absent 8. Sensory: Normal; no sensory loss 9. Best Language: No aphasia; normal 10. Dysarthria: Normal 11. Extinction and Inattention: No abnormality Total: 2 Physical Exam Neuro Neuro Narrative: Neurological examination: General: The patient appears nutritionally appropriate, well-groomed, and appears comfortable in no acute distress. Mental Status:? The patient?s mental status alert. He is unable to answer orientation questions (month, age) which reports is baseline. .? Language was intact.? Cranial nerves:? Visual fermin full, and extra-ocular motion was intact. Face motion were symmetric.. There was no dysarthria. Motor: Normal strength and tone in all four extremities. No pronator drift. Sensation: Intact light touch bilaterally.? Coordination:? Bilateral finger to nose was normal.? There was no dysmetria. Gait:? deferred Lab / Micro Data 02/24/24 20:30 02/24/24 20:30 Labs: Laboratory Results - last 24 hr 02/24/24 01:05: Urine Opiates Screen NEGATIVE, Urine Methadone Screen NEGATIVE, Ur Barbiturates Screen NEGATIVE, Ur Phencyclidine Scrn NEGATIVE, Ur Amphetamines Screen NEGATIVE, MDMA (Ecstasy) Screen NEGATIVE, U Benzodiazepines Scrn NEGATIVE, Urine Cocaine Screen NEGATIVE, U Cannabinoids Screen NEGATIVE, Ur Drug Screen Comment 02/24/24 20:27: POC Glucose 118 H 02/24/24 20:30: WBC 8.4, RBC 4.29 L, Hgb 13.4, Hct 40.8, MCV 95.1 H, MCH 31.2, MCHC 32.8, RDW Std Deviation 47.0 H, RDW Coeff of Mally 13.6, Plt Count 289, MPV 10.9, Immature Gran % (Auto) 0.600, Neut % (Auto) 45.3 L, Lymph % (Auto) 33.7, [place] % (Auto) 13.2 H, Eos % (Auto) 6.2 H, Baso % (Auto) 1.0, Absolute Neuts (auto) 3.8, Absolute Lymphs (auto) 2.83, Nucleated RBC % 0, Differential Comment SCANNED, Sodium 137, Potassium 4.2, Chloride 107, Carbon Dioxide 26.0, Anion Gap 4 L, BUN 25 H, Creatinine 2.12 H, Estim Creat Clear Calc 31.91, Est GFR (MDRD) Af Amer 39 L, Est GFR (MDRD) Non-Af 32 L, BUN/Creatinine Ratio 11.8, Glucose 114 H, Hemoglobin A1c 5.6, Calcium 9.3, Troponin I High Sens 13, Folate 6.50, TSH 2.83 02/24/24 21:24: PT 12.6, INR 0.9, APTT 32.9 02/24/24 22:53: Ethyl Alcohol < 3.0 02/25/24 06:05: Triglycerides 484 H, Cholesterol 391 H, LDL Cholesterol TNP, VLDL Cholesterol TNP, HDL Cholesterol 35 L, Vitamin B12 549 Imaging Radiology Impression Brain CT 02/24/24 20:36 IMPRESSION: Moderate atrophy and periventricular white matter ischemic change. Old left cerebellar infarct. No acute bleed. If concern for acute infarct MRI recommended N.B. : The above Results were Read Back by Anthony Boss MD to Elmer Mcgill DO, and understanding confirmed on 02/24/2024 21:00:52 (ET). Electronically Signed: Anthony Boss MD at 20:59 EDT , Chest X-Ray 02/24/24 23:00 IMPRESSION: Mild hypoventilatory changes Electronically Signed: Eric Haynes MD at 23:53 EDT , Brain MRI 02/25/24 09:00 IMPRESSION: 1. No acute intracranial abnormality. 2. Senescent changes. Electronically Signed: Andre Rm MD at 11:01 EDT , Active Medications Active Medications Active Medications: Current Medications Generic Name Dose Route Start Last Admin Trade Name Freq PRN Reason Stop Dose Admin Acetaminophen 650 mg 02/24/24 23:48 Acetaminophen 325 Mg Tablet PO Q6 PRN Pain 1-10 or Fever Atorvastatin Calcium 40 mg 02/25/24 22:00 Atorvastatin Calcium 40 Mg Tablet PO QHS ENDER Buspirone HCl 15 mg 02/25/24 06:00 02/25/24 06:03 Buspirone 15 Mg Tablet PO 15 mg TID ENDER Administration Carbidopa/Levodopa 1 tablet 02/25/24 07:00 02/25/24 10:23 Carbidopa/Levodopa 25/100 Tablet PO 1 tablet TIDAC ENDER Administration Donepezil HCl 10 mg 02/25/24 10:00 02/25/24 10:22 Donepezil Hcl 10 Mg Tablet PO 10 mg DAILY ENDER Administration Doxepin HCl 75 mg 02/25/24 22:00 Doxepin Hcl 25 Mg Capsule PO QHS ENDER Finasteride 5 mg 02/25/24 10:00 02/25/24 10:22 Finasteride 5 Mg Tablet PO 5 mg DAILY ENDER Administration Fluoxetine HCl 40 mg 02/25/24 10:00 02/25/24 10:22 Fluoxetine Hcl 40 Mg Capsule PO 40 mg DAILY ENDER Administration Sodium Chloride 1,000 mls @ 70 mls/hr 02/24/24 23:48 02/25/24 01:02 IV 70 mls/hr .[id number] ENDER Administration Sodium Chloride 250 mls @ 15 mls/hr 02/25/24 00:23 IV .[id number] PRN Additional IVPB Infusion Sodium Chloride 250 mls @ 15 mls/hr 02/25/24 00:23 IV .[id number] PRN Saline Flush Meclizine HCl 25 mg 02/24/24 23:48 Meclizine Hcl 25 Mg Tablet PO Q8 PRN DIZZINESS Memantine 10 mg 02/25/24 10:00 02/25/24 10:22 Memantine Hydrochloride 10 Mg Tablet PO 10 mg BID ENDER Administration Oxcarbazepine 300 mg 02/25/24 10:00 02/25/24 10:22 Oxcarbazepine 300 Mg Tablet PO 300 mg BID ENDER Administration Sodium Chloride 10 - 40 ml 02/25/24 00:23 0.9% Saline Lock 10 Ml Syringe IV UD PRN SALINE FLUSH Tamsulosin HCl 0.4 mg 02/25/24 10:00 02/25/24 10:22 Tamsulosin Hcl 0.4 Mg Capsule PO 0.4 mg DAILY ENDER Administration
[2024-02-25] MEDS: Acetaminophen 325 MG Tablet 650 MG PO (13:52)
--- NOTE | 2024-02-25 14:01 | CASEMGMT ---
Patient's notified RN that she would like placement for patient. HUGO met with patient's Heather. SW introduced self and role. SW asked patient about a discharge plan. Heather told SW she has no discharge plan until she talks to the doctor. Heather did say that she feels patient needs to go somewhere for rehab or have hospice with help at home. SW explained that if patient were to go somewhere for rehab it would be private pay. SW explained that patient is in the hospital under observation status, therefore Medicare will not pay for a stay at a [place] [facility] facility. Heather was upset that patient was in observation status. HUGO then explained that patient did not meet medical criteria for inpatient status. Heather wanted to talk with the physician. SW notified physician. After physician spoke with Heather physician notified SW that Heather would like to know how much it would cost to private pay at [facility]. HUGO checked with [facility] and there are no beds available until next week at this time. SW notified Heather of this information. HUGO did tell Heather that [facility] is $660 per day and they require 21 days up front which is $13,860. HUGO asked if she would like HUGO to check with any of the other facilities in the area. Heather said no she does not trust any of them. HUGO offered [facility] as they have a respite rehab program. Heather said patient was kicked out of there. HUGO asked about [facility]. Heather said she pulled him out of there. HUGO mentioned [facility]. Heather said she hasn't heard anything good about [facility] so that is not an option. HUGO offered home health. Heather said they are worthless. They come out for 15 minutes and then leave. HUGO mentioned that the doctor thought outpatient vestibular therapy could be helpful. Heather declined this. SW offered a private duty list. Heather said she already has a couple of private duty people so she declined a list. Heather said she will just take patient home. SW asked if she would like transportation set up. Heather said she has done it herself before. SW asked if there was anything else SW could do to help. Heather said no because the only thing to offer is half-way and she does not want him to go to any of the nursing homes. SW notified physician. Plan: d/c home without services as patient's declined everything offered. Edwige Kimbrough [employer] JOHN
--- NOTE | 2024-02-25 14:54 | CHAPLAIN ---
Type of Pastoral Visit _x__ Initial Visit ___ Follow-up Visit ___ On-call Visit ___ General Patient Visit ___ Spiritual Assessment ___ Family Conference ___ Bereavement ___ Rapid Response ___ Code Blue ___ Other (describe below) Pastoral Care Referral From _x__ Patient ___ Family ___ Nurse ___ Physician ___ Global Sourcing Manager ___ Platform Software Engineer ___ Other (describe below) Sacrament/Intervention _x__ Active listening ___ Anointing ___ Tenriism ___ Bereavement ___ Communion ___ Ambreen exploration ___ ___ Life review _x__ Prayer ___ Reconciliation ___ Sacrament of Sick ___ Supportive presence ___ Wedding ___ Other (describe below) Pastoral Comments patient is receiving meds from the RN; spouse is at bedside; asked pt how he is doing and feeling; pt indicates some improvement; spouse speaks of waiting for answers; neither can state any further needs but offer of prayer is given and accepted
--- NOTE | 2024-02-25 14:57 | DS.PCM_ITS ---
Providers Date of Admission: 02/24/24 Date of Discharge: 02/25/24 Primary Care Physician: Dr. Carlos Lira MD Consultations 02/24/24 23:48 Consult: Tele-Neurology Routine Consulting Provider: [facility] Reason for Consult: Acute Ischemic Stroke/TIA EMERGENT Consult: No MD Notified: Yes Date Notified: 02/24/24 Time Notified: 22:09 Method of Notification: ED Physician Initiated Method of Consult:: Telemedicine Nursing Unit Staff Notify [facility] of Tele-Neurology Consult: Yes Reason For Visit: TIA VS CVA PLUS BPPV WITH NAUSEA, VOMITING & Diagnosis Discharge Diagnosis (1) TIA (transient ischemic attack): Status: Acute Code(s): G45.9 - Transient cerebral ischemic attack, unspecified (2) Acute severe vertigo: Status: Acute Code(s): R42 - Dizziness and giddiness (3) Nausea & vomiting: Status: Acute Code(s): R11.2 - Nausea with vomiting, unspecified Qualifiers: Vomiting type: unspecified Qualified Code(s): R11.2 - Nausea with vomiting, unspecified (4) Slurred speech: Status: Acute Code(s): R47.81 - Slurred speech (5) Acute metabolic encephalopathy: Status: Acute Code(s): G93.41 - Metabolic encephalopathy (6) Alzheimer disease: Status: Chronic Code(s): G30.9 - Alzheimer's disease, unspecified; F02.80 - Dementia in other diseases classified elsewhere, unspecified severity, without behavioral disturbance, psychotic disturbance, mood disturbance, and anxiety (7) Horizontal nystagmus: Status: Acute Code(s): H55.09 - Other forms of nystagmus (8) History of aortic valve replacement with bioprosthetic valve: Status: Chronic Code(s): Z95.3 - Presence of xenogenic heart valve (9) Bilateral carotid artery stenosis: Status: Chronic Code(s): I65.23 - Occlusion and stenosis of bilateral carotid arteries (10) History of CVA (cerebrovascular accident): Status: Acute Code(s): Z86.73 - Personal history of transient ischemic attack (TIA), and cerebral infarction without residual deficits Medications at Discharge Home Medications fluoxetine 40 mg capsule 40 mg PO DAILY DEPRESSION 04/09/21 doxycycline hyclate 50 mg tablet 50 mg PO PRN ATB 10/07/21 donepezil 10 mg tablet (Aricept) 10 mg PO DAILY COGNITION 11/19/21 finasteride 5 mg tablet 5 mg PO DAILY URINARY RETENTION 11/19/21 oxcarbazepine 300 mg tablet 300 mg PO BID SEIZURE 11/19/21 carbidopa 25 mg-levodopa 100 mg tablet 1 tab PO TIDAC 30 days #90 tabs 11/27/21 tamsulosin 0.4 mg capsule 0.4 mg PO DAILY 08/25/22 memantine 10 mg tablet 10 mg PO BID 10/02/22 buspirone 15 mg tablet 15 mg PO BID MOOD 02/24/24 doxepin 75 mg capsule 75 mg PO QHS 02/24/24 doxycycline hyclate 50 mg capsule 50 mg PO DAILY 02/24/24 atorvastatin 40 mg tablet 40 mg PO QHS #30 tabs 02/25/24 meclizine 25 mg tablet 25 mg PO Q8 PRN Dizziness #20 tabs 02/25/24 Hospital Course Procedures EKG and - (Carotid artery Dopplers/MRI brain/CT brain) Summary of Care Provided Minutes Spent on Discharge: 30 Hospital Course: Mr. Velez is a 78-year-old male with a significant past medical history for Alzheimer's type dementia as well as vascular disease who presented to the emergency department at [facility] on 02/24/2024 due to dizziness and nausea and vomiting with possible intermittent slurred speech. Patient symptoms began at approximately 7:30 PM when he was noted to have significant nausea and had several episodes of bilious emesis. He has had similar symptoms in the past suspicious for BPPV and the ER physician did note bilateral horizontal nystagmus on presentation. He had had no other symptoms prior to presentation but does have a history of TIA and stroke. He is not on any insight lipid medication or aspirin at home at this time however due to his fall risk. His confirmed that he has had several episodes of vertigo previously but nothing as severe as this particular episode. Vital signs on presentation showed a temperature of 98.1, heart rate 83, respiratory was 12, blood pressure was 121/95, pulse ox was 93% on room air. His CBC was unremarkable. His chemistry panel showed chronic BUN and creatinine elevation that were stable and at his baseline when compared to previous, and mildly elevated glucose at 114. Hemoglobin A1c was obtained and found to be 5.6. Cholesterol panel was done and he had a total cholesterol of 391 with a triglyceride level of 484 and an HDL of 35. LDL was not calculated will due to markedly elevated triglycerides. He does have a history of carotid artery disease and carotid artery duplex was performed and CTA was contraindicated because of his renal dysfunction. Ultrasound revealed mild bilateral carotid artery stenosis at less than 50% and patent and antegrade flow in the vertebral arteries bilaterally. CT of the brain showed moderate atrophy and periventricular white matter ischemic changes with an old cerebellar infarct and no acute bleed. Chest x-ray showed mild hypoventilatory changes but otherwise was unremarkable for any acute findings. He was admitted to the medical floor at the recommendation of the emergency department stroke neurologist suggestion for stroke rule out given his vertiginous symptoms. MRI of the brain showed senescent changes with no acute i ntracranial abnormality. He was evaluated by the neurologist from teleneurology at [facility] and their recommendation was for outpatient vestibular rehab for BPPV as stroke workup was unremarkable. PT and OT evaluated the patient and recommended ongoing rehab services at discharge. The wanted us to try to send him to a skilled facility for rehab and she preferred the transitional care unit however the patient was admitted as observation as he did not meet criteria for full admission at the time of presentation. We discussed with her the rules of Medicare and that he would need a 3-day hospitalization as a full admission to be admitted anywhere for ongoing rehab. Both myself and renal case manager talk to her and explained the issues with regards to admission to the TCU or other skilled facilities as an observation and she requested prices for [id number] payment which was the only way we would be able to get him into a facility for rehab at this time. The transitional care unit has no beds for admission at this time and will not have any until next Thursday from what they can foresee at this time. Social work gave the patient's multiple options for respite care and other skilled options all of which she refused and stated none of them were adequate. She informed us that she is pulled amount of multiple places because of inadequate care. We also offered outpatient vestibular rehab as well as home health services which she adamantly denied at the time of discharge. I explained to her the diagnosis of BPPV and that this could recur and vary in severity. We did send him home with a trial of meclizine and start him on atorvastatin given his markedly elevated lipid panel to help prevent any further cardiovascular events if possible with his history. I did let her know that if she changed her mind about vestibular rehab or would like home health to please contact her primary care physician and they should be able to help arrange for this after discharge. At the time of discharge the patient's vertigo had completely resolved and the reported to me that he was about at baseline for his functional status which does not sound all that functional per her reports. I have asked that he follow-up with Dr. Lira, his primary care physician, within the next week and I did give a referral for neurology however I do anticipate that we will take some time to get him in to be seen. 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 Complains of some mild headache but refused any Tylenol. No other specific complaints at this time. Const alert, no apparent distress and well nourished; Negative for average body habitus, no limitations or healthy appearing Constitutional Narrative: Elderly, white male, sitting up in a chair at the bedside, at bedside, patient is oriented to self only, appears comfortable at this time, nontoxic General Appearance: cooperative, comfortable, well kempt and well developed Orientation / Consciousness: awake and oriented to person Exam Limitations: altered mental status Nutritional Appearance: obese HEENT normocephalic, head/scalp atraumatic and moist oral mucous membranes Resp normal respiratory effort, no retractions, no use of accessory muscles and clear to auscultation bilaterally Auscultation: Negative for rales, rhonchi or wheezes Cardio regular rate, regular rhythm, S1 normal heart sound, S2 normal heart sound, no murmurs, no rub, no gallops and no clicks GI normal to inspection, nondistended, normoactive bowel sounds, soft to palpation and non-tender Extremity Extremity Narrative: 1+ bilateral lower extremity edema that is pitting, no cyanosis or clubbing Neuro moves all extremities Neuro Narrative: Significant generalized weakness noted but no focal deficits Sensorium / Orientation: awake, alert and oriented to person Speech: speech normal Psych Psych Narrative: Affect is flat Weight / BMI Weight Weight: 98.7 kg Body Mass Index (BMI) 35.1 ABG / Lab / Microbiology Data 02/24/24 20:30 02/24/24 20:30 Laboratory: Laboratory Results - last 24 hr 02/24/24 01:05: Urine Opiates Screen NEGATIVE, Urine Methadone Screen NEGATIVE, Ur Barbiturates Screen NEGATIVE, Ur Phencyclidine Scrn NEGATIVE, Ur Amphetamines Screen NEGATIVE, MDMA (Ecstasy) Screen NEGATIVE, U Benzodiazepines Scrn NEGATIVE, Urine Cocaine Screen NEGATIVE, U Cannabinoids Screen NEGATIVE, Ur Drug Screen Comment 02/24/24 20:27: POC Glucose 118 H 02/24/24 20:30: WBC 8.4, RBC 4.29 L, Hgb 13.4, Hct 40.8, MCV 95.1 H, MCH 31.2, MCHC 32.8, RDW Std Deviation 47.0 H, RDW Coeff of Mally 13.6, Plt Count 289, MPV 10.9, Immature Gran % (Auto) 0.600, Neut % (Auto) 45.3 L, Lymph % (Auto) 33.7, Sebastian % (Auto) 13.2 H, Eos % (Auto) 6.2 H, Baso % (Auto) 1.0, Absolute Neuts (auto) 3.8, Absolute Lymphs (auto) 2.83, Nucleated RBC % 0, Differential Comment SCANNED, Sodium 137, Potassium 4.2, Chloride 107, Carbon Dioxide 26.0, Anion Gap 4 L, BUN 25 H, Creatinine 2.12 H, Estim Creat Clear Calc 31.91, Est GFR (MDRD) Af Amer 39 L, Est GFR (MDRD) Non-Af 32 L, BUN/Creatinine Ratio 11.8, Glucose 114 H, Hemoglobin A1c 5.6, Calcium 9.3, Troponin I High Sens 13, Folate 6.50, TSH 2.83 02/24/24 21:24: PT 12.6, INR 0.9, APTT 32.9 02/24/24 22:53: Ethyl Alcohol < 3.0 02/25/24 06:05: Triglycerides 484 H, Cholesterol 391 H, LDL Cholesterol TNP, VLDL Cholesterol TNP, HDL Cholesterol 35 L, Vitamin B12 549 Radiography Diagnostic Testing: Radiology Impression Brain CT 02/24/24 20:36 IMPRESSION: Moderate atrophy and periventricular white matter ischemic change. Old left cerebellar infarct. No acute bleed. If concern for acute infarct MRI recommended N.B. : The above Results were Read Back by Anthony Boss MD to Elmer Mcgill DO, and understanding confirmed on 02/24/2024 21:00:52 (ET). Electronically Signed: Anthony Boss MD at 20:59 EDT , Carotid Duplex 02/24/24 22:18 Interpretation Summary Mild (<50%) stenosis right extracranial internal carotid. Mild (<50%) stenosis left extracranial internal carotid. Patent and antegrade vertebrals bilaterally. Ordering Physician: Jovi Man Referring Physician: Carlos Lira Chi Performed By: Leonarda Lopez, T Chest X-Ray 02/24/24 23:00 IMPRESSION: Mild hypoventilatory changes Electronically Signed: Eric Haynes MD at 23:53 EDT , Brain MRI 02/25/24 09:00 IMPRESSION: 1. No acute intracranial abnormality. 2. Senescent changes. Electronically Signed: Andre Rm MD at 11:01 EDT , D/C Instructions Discharge Diet: Low fat / Low cholesterol Discharge Activity: No Restrictions and Use Walker (Recommend using a walker at all times with the assistance of a family member) Meaningful Use Info Meaningful Use Meaningful Use Diagnoses (Choose all that apply): None applicable Ischemic Stroke Statin Dosing Therapy Reference: STATIN DOSE THERAPY REFERENCE: * Patients > 75 years receive moderate or high dose statin therapy. * Patients 75 years or YOUNGER should receive HIGH intensity statin dose unless contraindicated. You will be required to document reason for non-treatment if statin daily dose does not meet guidelines. HIGH DOSE STATIN THERAPY DAILY Atorvastatin > than or = to 40 mg Rosuvastatin > than or = to 20 mg Amlodipine + Atorvastatin > than or = to 2.5/40 mg Ezetimibe + Simvastatin 10/80 mg Simvastatin 80mg Discharge Plan Admission Admit Date/Time: 02/24/24 22:05 Primary Reason for Your Visit: Vertigo Attending Provider: Laurie Harrington Primary Care Provider: Carlos Lira Chi Consulting Providers: Frances Johnston; Porsha Sanchez; Lorena Delatorre; Sailaja Noland; Micha Longoria; Alyssa Sharpe; Cecliy Leblanc; Dylan Tomlinson; Maeve Davis; Devan James; Maynor Matta; Rajeev Harris; Maynor Calvo; Sarmad He; Alexandru Oliveira; Leana Lee; Roberto Conde; Swathi Harrington; Chen Renteria; Kyara Church; Jimbo Lamar; Francesca Leung; KATHRYN COCHRAN; Mikey Ball; Betty Meneses; Jovi Man Instructions Additional Instructions / Restrictions: 1. Your cholesterol was found to be extremely high so we did start you on a cholesterol pill to help prevent further issues with this as preventative measures 2. I would highly recommend that you follow-up with vestibular rehab. If you change your mind with regards to vestibular rehab please call Dr. Lira and ask for referral for either home health for vestibular rehab or outpatient vestibular rehab. Discharge Orders/Prescriptions Prescriptions: New meclizine 25 mg Tablet 25 mg PO Q8 PRN (Reason: Dizziness) Qty: 20 0RF atorvastatin 40 mg Tablet 40 mg PO QHS Qty: 30 0RF Continued fluoxetine 40 mg capsule 40 mg PO DAILY doxycycline hyclate 50 mg tablet 50 mg PO PRN memantine 10 mg tablet 10 mg PO BID donepezil [Aricept] 10 mg tablet 10 mg PO DAILY oxcarbazepine 300 mg tablet 300 mg PO BID finasteride 5 MG tablet 5 mg PO DAILY carbidopa-levodopa 25-100 mg Tablet 1 tab PO TIDAC 30 Days Qty: 90 11RF tamsulosin 0.4 mg capsule 0.4 mg PO DAILY doxycycline hyclate 50 mg capsule 50 mg PO DAILY doxepin 75 mg capsule 75 mg PO QHS buspirone 15 mg tablet 15 mg PO BID Referrals / Follow Up: Gabriel Morocho MD [Non-Staff -Ordering Privileges] - See Referral Note (Call tomorrow to set up an appointment) Carlos Lira Chi, MD [Primary Care Provider] - Within 1 Week Disposition Disposition (needs filled in before D/C Order can be placed): Home, Self Care Charges/Coding Visit Charges Inpatient E&M: 36995 Disch Hosp
--- NOTE | 2024-02-25 15:17 | CASEMGMT ---
[facility] NOTE: Pt being discharged. See Edwige ARIAS, note. Noted 2 rx's have been sent to [place] [facility]. [facility] to room. Introduced self and role. Per , their daughter works @ [facility] and she will be able to get rx's for pt today. voices no other needs. Berenice ENGN AHSAN CM
== END 2024-02-25 15:02 | disposition home or self-care (01) ==
LOC: ED 21:39 → PCU 22:30
PROVIDERS: Admitting Provider Internal Medicine; Emergency Provider Emergency Medicine; PCP Family Medicine Geriatric Medicine; Visit Provider Internal Medicine
DX: H81.10 Benign paroxysmal vertigo, unspecified ear (principal); G20.A1 Parkinson's disease without dyskinesia, without mention of fluctuations; N18.4 Chronic kidney disease, stage 4 (severe); G30.9 Alzheimer's disease, unspecified; F02.80 Dementia in other diseases classified elsewhere, unspecified severity, without behavioral disturbance, psychotic disturbance, mood disturbance, and anxiety; G40.909 Epilepsy, unspecified, not intractable, without status epilepticus; R11.2 Nausea with vomiting, unspecified; Z87.891 Personal history of nicotine dependence; R29.704 NIHSS score 4; I12.9 Hypertensive chronic kidney disease with stage 1 through stage 4 chronic kidney disease, or unspecified chronic kidney disease; R47.81 Slurred speech; Z86.16 Personal history of COVID-19; E78.5 Hyperlipidemia, unspecified; Z95.2 Presence of prosthetic heart valve; G93.41 Metabolic encephalopathy; K21.9 Gastro-esophageal reflux disease without esophagitis; Z79.899 Other long term (current) drug therapy; H55.09 Other forms of nystagmus; E66.9 Obesity, unspecified; Z68.37 Body mass index [BMI] 37.0-37.9, adult; N40.0 Benign prostatic hyperplasia without lower urinary tract symptoms; M19.90 Unspecified osteoarthritis, unspecified site
CPT/HCPCS: 36415; 70450; 70551; 71045; 80048; 80061; 80307; 80320; 82607; 82746; 82962; 83036; 84443; 84484; 85025; 85610; 85730; 93005; 93880; 94762; 95819; 96374; 97162; 97166; 99221; 99285; J7030; A4216; G0378; G0480; J2405

== ENCOUNTER → 2024-03-28 | Outpatient (CLI) | payer MEDICARE, OTHER, SELFPAY ==
--- NOTE | 2024-03-28 16:20 | RAD_ITS ---
STUDY: X-RAY - RIGHT SHOULDER REASON FOR EXAM: Male, 78 years old. RIGHT SHOULDER PAIN TECHNIQUE: 4 view(s) of the shoulder. COMPARISON: Comparison is made with prior study dated November 12, 2017. FINDINGS: There is mild degenerative arthrosis of the glenohumeral articulation. There is hypertrophic osteoarthrosis of the acromioclavicular joint with inferior osseous spur formation. Normal acromion. Normal humeral head and visualized proximal humerus. The soft tissue structures are unremarkable. Normal visualized pulmonary apex. RAD/Shoulder min 2 Views IMPRESSION: Hypertrophic osteoarthritis of the right acromioclavicular joint. Degenerative changes of the right glenohumeral joint. Electronically Signed: Nigel Jackson MD at 9:54 EDT ,
== END | disposition home or self-care (01) ==
LOC: RAD 16:11
PROVIDERS: PCP Family Medicine Geriatric Medicine; Referring Provider Family Medicine Geriatric Medicine; Visit Provider Family Medicine Geriatric Medicine
DX: M25.511 Pain in right shoulder (principal)
CPT/HCPCS: 73030

== ENCOUNTER → 2024-05-13 | Outpatient (CLI) | payer MEDICARE, OTHER, SELFPAY ==
[2024-05-13 11:29] LABS: Absolute Lymphocyte Count 2.05 X10^3/uL (0.83-4.51); Absolute Neutrophil Count 6.3 X10^3/uL (2.0-7.7); Basophil# 0.09 X10^3/uL; Basophil% 0.9 % (0-1); Eosinophil# 0.32 X10^3/uL; Eosinophils% 3.3 % (0-5); Hematocrit 43.8 % (40-54); Hemoglobin 14.2 g/dL (13.0-16.5); Lymphocyte # 2.05 X10^3/ul (0.83-4.51); Lymphocyte % 21.3 % (19-41); Mean Corp Hgb Conc 32.4 g/dL (32-36); Mean Corpuscular Hgb 30.5 pg (27.0-32.0); Mean Platelet Vol. 9.5 fl (6.2-12.0); Monocyte# 0.72 X10^3/uL; Monocyte% 7.5 % (0-10); NRBC Flagged by Analyzer 0 % (0-5); Neutrophil % 65.3 % (47-70); Platelet Count 297 K/mm3 (150-450); RBC Distribution Width CV 13.7 % (11.6-14.6); RBC Distribution Width SD 46.9 fl (35.1-43.9); Red Blood Count 4.66 M/mm3 (4.6-6.2); White Blood Count 9.6 K/mm3 (4.4-11.0)
[2024-05-13 12:00] LABS: Vitamin D,25 Hydroxy 24.3 ng/mL
[2024-05-13 12:19] LABS: ALB/GLOB Ratio 0.7 RATIO (0.9-2.4); AST(SGOT) 28 U/L (15-37); Alanine Aminotransfer ALT/SGPT 12 U/L (16-61); Albumin, Serum 3.7 g/dL (3.2-5.0); Alkaline Phosphatase 110 U/L (45-117); Anion Gap 6 (5-15); BUN 26 mg/dL (7-18); BUN/Creat Ratio 11.6 RATIO (10-20); Calcium,Total 9.7 mg/dL (8.5-10.1); Chloride 107 mmol/L (98-107); Creatinine, Serum 2.24 mg/dL (0.70-1.30); EST Glomerular Filtration Rate 30 mL/min (>60); Est Glom Filt Rate - Afr Amer 37 mL/min (>60); Globulin 5.3 g/dL (2.2-4.2); Glucose 101 mg/dL (74-106); Potassium 4.8 mmol/L (3.5-5.1); Sodium Level 136 mmol/L (136-145); Thyroid Stim Hormone (TSH) 1.43 uIU/mL (0.358-3.74)
== END | disposition home or self-care (01) ==
PROVIDERS: PCP Family Medicine Geriatric Medicine; Referring Provider Family Medicine Geriatric Medicine; Visit Provider Family Medicine Geriatric Medicine
DX: R53.83 Other fatigue (principal); E55.9 Vitamin D deficiency, unspecified
CPT/HCPCS: 36415; 80053; 82306; 84443; 85025

== ENCOUNTER → 2024-05-19 | Outpatient (CLI) | payer MEDICARE, OTHER, SELFPAY ==
[2024-05-19 15:08] LABS: Absolute Lymphocyte Count 1.96 X10^3/uL (0.83-4.51); Absolute Neutrophil Count 5.4 X10^3/uL (2.0-7.7); Basophil# 0.09 X10^3/uL; Eosinophil# 0.28 X10^3/uL; Eosinophils% 3.2 % (0-5); Hematocrit 42.6 % (40-54); Hemoglobin 13.7 g/dL (13.0-16.5); Lymphocyte # 1.96 X10^3/ul (0.83-4.51); Lymphocyte % 22.6 % (19-41); Mean Corp Hgb Conc 32.2 g/dL (32-36); Mean Corpuscular Hgb 30.4 pg (27.0-32.0); Mean Corpuscular Volume 94.5 fL (80-94); Mean Platelet Vol. 9.5 fl (6.2-12.0); Monocyte# 0.93 X10^3/uL; Monocyte% 10.7 % (0-10); NRBC Flagged by Analyzer 0 % (0-5); Neutrophil # 5.35 X10^3/uL (2.7-7.7); Neutrophil % 61.9 % (47-70); Platelet Count 299 K/mm3 (150-450); RBC Distribution Width CV 13.6 % (11.6-14.6); RBC Distribution Width SD 47.6 fl (35.1-43.9); Red Blood Count 4.51 M/mm3 (4.6-6.2); White Blood Count 8.7 K/mm3 (4.4-11.0)
[2024-05-19 15:43] LABS: ALB/GLOB Ratio 0.8 RATIO (0.9-2.4); AST(SGOT) 26 U/L (15-37); Alanine Aminotransfer ALT/SGPT 7 U/L (16-61); Albumin, Serum 3.7 g/dL (3.2-5.0); Alkaline Phosphatase 102 U/L (45-117); Anion Gap 5 (5-15); BUN 26 mg/dL (7-18); BUN/Creat Ratio 12.8 RATIO (10-20); CPK Total, Creatine Kinase 83 U/L (39-308); Calcium,Total 9.5 mg/dL (8.5-10.1); Chloride 107 mmol/L (98-107); Creatinine, Serum 2.03 mg/dL (0.70-1.30); EST Glomerular Filtration Rate 34 mL/min (>60); Est Glom Filt Rate - Afr Amer 41 mL/min (>60); Globulin 4.7 g/dL (2.2-4.2); Glucose 105 mg/dL (74-106); Potassium 4.1 mmol/L (3.5-5.1); Protein, Total 8.4 g/dL (6.4-8.2); Sodium Level 138 mmol/L (136-145); Troponin-I HS 16 pg/mL (3.0-78.0)
[2024-05-21 08:12] LABS: Myoglobin, Serum 64 ng/mL (28-72)
== END | disposition home or self-care (01) ==
LOC: POLAB3 14:47
PROVIDERS: PCP Family Medicine Geriatric Medicine; Visit Provider Family Medicine Geriatric Medicine
DX: I10 Essential (primary) hypertension (principal); R06.02 Shortness of breath; R07.9 Chest pain, unspecified
CPT/HCPCS: 36415; 80053; 82550; 83874; 84484; 85025

== ENCOUNTER → 2024-06-27 | Outpatient (CLI) | payer MEDICARE, OTHER, SELFPAY ==
--- NOTE | 2024-06-27 14:41 | ECHOD_ITS ---
Reason For Study: Valve Replacement Eval Procedure This was a 2D Doppler, Color Flow transthoracic echocardiogram. Single Kidney-Donor. Exam performed in department. Left Ventricle Normal LV size. Left ventricular systolic function is normal. The left ventricular ejection fraction is 60 %. Stage 1 diastolic dysfunction. No regional wall motion abnormalities noted. Right Ventricle Normal RV size. Normal systolic function. Mitral Valve There is mild to moderate mitral annular calcification. Tricuspid Valve Normal tricuspid valve. Mild (1+) tricuspid valve insufficiency. Pulmonary artery systolic pressure is 35 mmHg. Aortic Valve Peak aortic valve gradient 14 mmHg. Mean aortic valve gradient 7 mmHg. Bioprosthetic aortic valve. Pulmonic Valve Normal pulmonic valve. Great Vessels Calcified aortic root. The pulmonary artery is normal size. Normal inferior vena cava. Pericardium/Pleural No pericardial effusion. MMode/2D Measurements & Calculations LVIDd: 3.6 cm IVSd: 1.7 cm LVOT diam: 2.0 cm LVIDs: 2.4 cm LVPWd: 1.2 cm LVOT area: 3.1 cm2 RVDd: 3.3 cm FS: 32.9 % Ao root diam: 3.7 cm asc Aorta Diam: 3.7 cm LAV(MOD-bp): 59.7 ml LA dimension: 4.3 cm LAV(MOD-bp) Indexed: 29.2 ml/m2 LAV(MOD-sp2): 57.3 ml LAV(MOD-sp4): 55.6 ml Ao sinus diam: 2.[address] Junction: 2.8 cm LA A4 area: 21.4 cm2 TAPSE: 1.2 cm RA A4 area: 12.5 cm2 Time Measurements MV dec time: 0.30 sec Doppler Measurements & Calculations MV E max carmelo: 95.8 cm/sec Lat Peak E' Carmelo: 10.4 cm/sec Med Peak E' Carmelo: 4.5 cm/sec MV A max carmelo: 128.7 cm/sec E/E' lat: 9.2 E/E' med: 21.4 MV E/A: 0.74 MV V2 max: 139.8 cm/sec MV P1/2t max carmelo: 111.2 cm/sec Ao V2 max: 186.6 cm/sec MV max P.8 mmHg MV P1/2t: 102.2 msec Ao max P.9 mmHg MV V2 mean: 74.7 cm/sec MV dec slope: 318.7 cm/sec2 Ao V2 mean: 120.9 cm/sec MV mean P.6 mmHg Ao mean P.0 mmHg MV V2 VTI: 39.8 cm MVA(P1/2t): 2.2 cm2 Ao V2 VTI: 35.9 cm MVA(VTI): 1.7 cm2 AV (velocity ratio): 0.61 LEONA(I,D): 1.9 cm2 LOENA(V,D): 1.7 cm2 LV V1 max: 101.5 cm/sec SV(LVOT): 66.8 ml PA V2 max: 143.4 cm/sec LV V1 max P.1 mmHg PA max PG (full): 6.5 mmHg LV V1 mean P.5 mmHg PA V2 mean: 94.2 cm/sec LV V1 mean: 75.0 cm/sec PA mean PG (full): 3.0 mmHg LV V1 VTI: 21.9 cm TR max carmelo: 282.0 cm/sec TR max P.8 mmHg ECHO/Echo Complete Interpretation Summary Normal LV size. Left ventricular systolic function is normal. The left ventricular ejection fraction is 60 %. Stage 1 diastolic dysfunction. Pulmonary artery systolic pressure is 35 mmHg. Bioprosthetic aortic valve. Calcified aortic root. Ordering Physician: Tigist Mason Referring Physician: Tigist Mason Performed By: Xu Briscoe RCS
== END | disposition home or self-care (01) ==
LOC: CVS 14:41
PROVIDERS: PCP Family Medicine Geriatric Medicine; Referring Provider Nurse Practitioner Gerontology; Visit Provider Nurse Practitioner Gerontology
DX: I35.0 Nonrheumatic aortic (valve) stenosis (principal)
CPT/HCPCS: 93306

== ENCOUNTER → 2024-07-07 | Outpatient (CLI) | payer MEDICARE, OTHER, SELFPAY ==
[2024-07-07 13:59] LABS: Absolute Lymphocyte Count 2.62 X10^3/uL (0.83-4.51); Basophil# 0.13 X10^3/uL; Basophil% 1.4 % (0-1); Eosinophil# 0.33 X10^3/uL; Eosinophils% 3.6 % (0-5); Hematocrit 41.7 % (40-54); Hemoglobin 13.5 g/dL (13.0-16.5); Lymphocyte # 2.62 X10^3/ul (0.83-4.51); Lymphocyte % 28.6 % (19-41); Mean Corp Hgb Conc 32.4 g/dL (32-36); Mean Corpuscular Hgb 30.5 pg (27.0-32.0); Mean Corpuscular Volume 94.1 fL (80-94); Mean Platelet Vol. 9.8 fl (6.2-12.0); Monocyte# 0.85 X10^3/uL; Monocyte% 9.3 % (0-10); NRBC Flagged by Analyzer 0 % (0-5); Neutrophil # 5.02 X10^3/uL (2.7-7.7); Neutrophil % 54.9 % (47-70); Platelet Count 280 K/mm3 (150-450); RBC Distribution Width CV 14.2 % (11.6-14.6); Red Blood Count 4.43 M/mm3 (4.6-6.2); White Blood Count 9.2 K/mm3 (4.4-11.0)
== END | disposition home or self-care (01) ==
LOC: LAB 12:03
PROVIDERS: PCP Family Medicine Geriatric Medicine; Referring Provider Family Medicine Geriatric Medicine; Visit Provider Family Medicine Geriatric Medicine
DX: E78.5 Hyperlipidemia, unspecified (principal); R53.83 Other fatigue; N39.0 Urinary tract infection, site not specified
CPT/HCPCS: 36415; 85025

== ENCOUNTER → 2024-07-08 | Outpatient (CLI) | payer MEDICARE, OTHER, SELFPAY ==
[2024-07-08 08:20] LABS: Color, Urine Yellow (Yellow); Glucose, Dipstick Normal (Normal); Ketone-Dipstick Negative (Negative); Leukocyte Esterase-Dipstick Negative /ul (Negative); Nitrite-Dipstick Negative (Negative); Occult Blood-Urine Negative /ul (Negative); Protein-Dipstick 15 mg/dl (Negative); Urine Bilirubin Dipstick Negative (Negative); Urine Clarity Clear (Clear); Urine Urobilinogen Normal (Normal)
== END | disposition home or self-care (01) ==
LOC: LABSPEC 07:48 → LAB 09:45
PROVIDERS: PCP Family Medicine Geriatric Medicine; Referring Provider Family Medicine Geriatric Medicine; Visit Provider Family Medicine Geriatric Medicine
DX: E78.5 Hyperlipidemia, unspecified (principal); R53.83 Other fatigue; N39.0 Urinary tract infection, site not specified
CPT/HCPCS: 81002; 87086; 87088

== ENCOUNTER 2024-07-17 08:41 | Emergency (ER) | payer MEDICARE, OTHER, SELFPAY ==
[2024-07-17 08:42] VITALS: BP 150/83; PULSE 82; RESP 17; TEMP 36.8; O2SAT 94; BMI 36.3
--- NOTE | 2024-07-17 09:05 | RAD_ITS ---
INDICATION: chest pain EXAMINATION/TECHNIQUE: X-RAY - XR Chest 1 View COMPARISON: Prior study dated: 02/24/2024 FINDINGS: LINES/DEVICES: None. LUNGS: No consolidation, edema or effusion. No pneumothorax. MEDIASTINUM AND CARDIOVASCULAR STRUCTURES: Normal cardiac silhouette. Status post median sternotomy and valve replacement. BONES AND SOFT TISSUES: There are soft tissues and osseous structures. RAD/Chest 1 View (Portable) IMPRESSION: No radiographic evidence of acute cardiopulmonary disease. Electronically Signed: Todd Pandey MD at 11:04 EDT ,
--- NOTE | 2024-07-17 09:05 | EKG12_ITS ---
Test Reason : CP Blood Pressure : / mmHG Vent. Rate : 077 BPM Atrial Rate : 077 BPM P-R Int : 194 ms QRS Dur : 094 ms QT Int : 384 ms P-R-T Axes : 064 -33 081 degrees QTc Int : 434 ms Normal sinus rhythm Possible Left atrial enlargement Left axis deviation Minimal voltage criteria for LVH, may be normal variant ( Lacho product ) Nonspecific ST abnormality Abnormal ECG Confirmed by ANGEL ADAIR, CHARLOTTE ([id number]), business editor CLAUDY RUELAS ([id number]) on 07/19/2024 6:30:28 AM Referred By: GILMA Confirmed By:CHARLOTTE ORTIZ MD
--- NOTE | 2024-07-17 09:05 | ED.VIS.CHEST ---
HPI History of Present Illness Chief Complaint: Chest Pain Informant: patient, spouse/S.O. and EMS Narrative Narrative: 79-year-old male history of bipolar disorder, epilepsy, Parkinson's, stroke, Alzheimer's, and aortic valve replacement presenting to the emergency room with chest pain. states that when he went to bed last night he had poor sleep complaining of bilateral intermittent heel pain. This morning he was more confused than normal at breakfast not knowing what a donut was. She states that he went to get up and go into the bedroom to lay down. He laid down and a few minutes later called out that he was having a sharp chest pain. He states that it was rather severe but is calm down now. states they recently enrolled in hospice care. states that 2 evenings ago he fell out of his wheelchair coming back from the bathroom but did not appear to be significantly injured. Prehospital EKG shows a normal sinus rhythm with no concerning [facility] Medical History History of CVA (cerebrovascular accident) History of bipolar disorder COVID-19 Allergic rhinitis Seizure disorder Alzheimer disease Chronic renal insufficiency Seizure Altered mental status New onset seizure Donor, kidney CVA (cerebral vascular accident) (03/2019) Thrush of mouth and esophagus Non-rheumatic aortic stenosis Bilateral carotid artery stenosis Essential (primary) hypertension Tracheostomy in place BPH (benign prostatic hyperplasia) Anemia Allergic rhinitis Chronic kidney disease Peripheral arterial occlusive disease Hyperlipidemia Encephalopathy GERD (gastroesophageal reflux disease) Bipolar 1 disorder Hip fracture, left History of pulmonary embolism History of DVT (deep vein thrombosis) History of small bowel obstruction Osteoarthritis Presence of IVC filter Home Medications ?Medication ?Instructions ?Recorded ?Last Taken ?Type fluoxetine 40 mg capsule 40 mg PO DAILY DEPRESSION 04/09/21 Unknown History donepezil 10 mg tablet (Aricept) 10 mg PO DAILY COGNITION 11/19/21 Unknown History finasteride 5 mg tablet 5 mg PO DAILY URINARY RETENTION 11/19/21 Unknown History oxcarbazepine 300 mg tablet 300 mg PO BID SEIZURE 11/19/21 Unknown History carbidopa 25 mg-levodopa 100 mg 1 tab PO TIDAC 30 days #90 tabs 11/27/21 Unknown Rx tablet tamsulosin 0.4 mg capsule 0.4 mg PO DAILY 08/25/22 Unknown History memantine 10 mg tablet 10 mg PO BID 10/02/22 Unknown History doxepin 75 mg capsule 75 mg PO QHS 02/24/24 Unknown History doxycycline hyclate 50 mg capsule 50 mg PO DAILY 02/24/24 Unknown History meclizine 25 mg tablet 25 mg PO Q8 PRN Dizziness #20 tabs 02/25/24 Unknown Rx buspirone 15 mg tablet 15 mg PO BID for depressive 05/04/24 Unknown Rx disorder #56 TABLETS losartan 100 mg tablet 100 mg PO DAILY 05/31/24 Unknown History Allergy/AdvReac Type Severity Reaction Status Date / Time penicillin V Allergy Mild hives Verified 07/17/24 08:53 codeine AdvReac Mild upset Verified 07/17/24 08:53 stomach pecan nut AdvReac Mild STOMACH Verified 07/17/24 08:53 CRAMPS divalproex sodium (From AdvReac Other Verified 07/17/24 08:53 Depakote) haloperidol (From Haldol) AdvReac Other Verified 07/17/24 08:53 loratadine (From Claritin) AdvReac Dizziness Verified 07/17/24 08:53 nut - unspecified (nuts) AdvReac Abd Verified 07/17/24 08:53 cramps/diarrhea Family History Brother Diabetes Mother Heart disease Sister Heart disease Surgical History History of aortic valve replacement with bioprosthetic valve H/O arthroscopic knee surgery History of cataract surgery History of cholecystectomy History of left heart catheterization (07/19/18) History of right nephrectomy (1982) History of right common carotid artery stent placement (05/25/18) History of left common carotid artery stent placement (04/06/18) Status post emergency tracheotomy for assistance in breathing Status post arthroscopy of left knee History of kidney donation left shoulder surgery Status post left foot surgery Cataract extraction status of left eye donated kidney Social History housing: assisted living facility Smoking Status: Former smoker Tobacco: How many years used: 10 how long ago did patient quit smoking: About 50yrs second hand exposure: No alcohol intake: never substance use type: does not use caffeine: No seatbelt use: always ROS ROS ED Constitutional Constitutional ED: Denies chills, fever(s) or weight loss Eyes Eyes: Denies change in vision or diplopia ENT ENT ED: Denies ear pain, rhinorrhea or sore throat Cardiovascular Cardiovascular: Reports as per HPI and chest pain; Denies orthopnea, palpitations or racing heartbeat Respiratory/Chest Respiratory/Chest: Denies cough, dyspnea or orthopnea Gastrointestinal Gastrointestinal: Denies abdominal pain, diarrhea, nausea or vomiting Genitourinary Genitourinary ED: Denies dysuria, hematuria or urinary frequency Musculoskeletal Musculoskeletal: Reports other Details: Bilateral intermittent heel pain last night ; Denies arthralgias or myalgias Integumentary Denies abscess or rash Neurologic Neurologic: Reports other Details: Confusion ; Denies headache(s) or weakness Psychiatric Psychiatric: Denies anxiety, depression, suicidal ideation or suicidal thoughts Endocrine Endocrinology: Denies polydipsia, polyphagia or polyuria Allergic/Immunologic Allergic/Immunologic ED: Denies mouth swelling, tongue swelling or urticaria EXAM Physical Exam Const Vital Signs: 07/17/24 08:42 07/17/24 09:41 07/17/24 10:00 Temperature 98.2 F Temperature Source Oral Pulse Rate 82 76 78 Respiratory Rate 17 18 16 Blood Pressure 150/83 H 115/75 101/70 Blood Pressure Mean 105 88 80 Pulse Ox 94 94 95 Oxygen Delivery Method Room Air Room Air Room Air 07/17/24 11:00 07/17/24 12:00 07/17/24 12:50 Temperature 98 F Temperature Source Pulse Rate 74 73 73 Respiratory Rate 18 Blood Pressure 105/68 124/84 H 124/84 H Blood Pressure Mean 80 97 97 Pulse Ox 98 96 96 Oxygen Delivery Method Room Air Room Air Positive well nourished and well developed General Appearance ED: well developed HEENT Reports normocephalic, head/scalp atraumatic and moist mucous membranes Eyes PERRL and EOMs intact bilaterally Neck no lymphadenopathy, supple and no JVD Resp normal respiratory effort and clear to auscultation bilaterally Cardio regular rate, regular rhythm and no murmurs GI normal to inspection, nondistended, normoactive bowel sounds and non-tender Palpation: soft Back/Spine no CVA tenderness and normal ROM Extremity normal to inspection General Extremety ED: Negative for edema General Extremity: Negative for edema Neuro CN's II-XII intact bilaterally Neuro Narrative: AandOx2 Sensorium / Orientation: alert Motor Exam: strength 5/5 throughout Psych mental status grossly normal Mood & Affect: Negative for depressed or tearful Skin no rashes or lesions noted and no wounds MDM MDM MDM Narrative Medical decision making narrative: Differential diagnosis includes but not limited to pneumonia Pleural effusion esophagitis/GERD acute coronary syndrome pneumothorax dehydration electrolyte abnormalities anemia unlikely to be aortic dissection or aneurysm or pulmonary embolism My independent interpretation the chest x-ray is no acute process. White count 7.2 hemoglobin 11.3 platelet count 253. Creatinine has been trending upwards over the past several months. Today's creatinine 2.56 with a BUN of 37 normal sodium and potassium. Initial troponin is negative. Because of the elevation of the right main, a liter of IV fluids was given. Delta troponin was ordered and it returns as normal. Urinalysis was obtained which demonstrates some protein negative nitrates no gross infection is noted. At this point I do not believe the chest pain was cardiac in nature. Am not seeing other intrathoracic emergencies. I did take care to inform the patient and his that his creatinine is elevated off of baseline. They see Dr. Harrington with nephrology and would recommend that they advise Dr. Harrington's office of today's values to see if they need to come in for evaluation. History & Record Review Discussion w/independent historian: EMS personnel, Patient and Significant other Lab Data Attestation: I reviewed the patient's lab results. Labs: Laboratory Results - last 24 hr 07/17/24 07/17/24 09:55 12:00 WBC 7.2 RBC 3.67 L Hgb 11.3 L Hct 35.6 L MCV 97.0 H MCH 30.8 MCHC 31.7 L RDW Std Deviation 49.7 H RDW Coeff of Mally 13.9 Plt Count 253 MPV 9.3 Immature Gran % (Auto) 0.800 Neut % (Auto) 60.2 Lymph % (Auto) 24.0 [place] % (Auto) 10.8 H Eos % (Auto) 3.5 Baso % (Auto) 0.7 Absolute Neuts (auto) 4.4 Absolute Lymphs (auto) 1.73 Nucleated RBC % 0 Sodium 140 Potassium 4.6 Chloride 109 H Carbon Dioxide 27.0 Anion Gap 4 L BUN 37 H Creatinine 2.56 H Estim Creat Clear Calc 25.77 Est GFR (MDRD) Af Amer 31 L Est GFR (MDRD) Non-Af 26 L BUN/Creatinine Ratio 14.5 Glucose 113 H Calcium 9.0 Troponin I High Sens 16 17 Urine Color Yellow Urine Clarity Clear Urine pH 6.0 Ur Specific [place] 1.015 Urine Protein 30 H Urine Glucose (UA) Normal Urine Ketones Negative Urine Occult Blood 10 H Urine Nitrite Negative Urine Bilirubin Negative Urine Urobilinogen Normal Ur Leukocyte Esterase 25 H Urine RBC 0-5 SEEN Urine WBC 0-5 SEEN Ur Squamous Epith Cells 0-5 SEEN Urine Bacteria RARE Urine Mucus 0 SEEN Radiography Diagnostic Testing: Clinical Impression(s) from Imaging Studies Chest X-Ray 07/17/24 09:05 IMPRESSION: No radiographic evidence of acute cardiopulmonary disease. Electronically Signed: Todd Pandey MD at 11:04 EDT , EKG Initial EKG: Attestation: I personally reviewed and interpreted this EKG as follows: Comments: Normal sinus rhythm ventricular rate of 77 bpm Discharge Plan Triage Chief Complaint: Chest Pain ED Provider: Mark Carrera Dx/Rx/DC Orders Clinical Impression: Chest pain, Coronary artery disease, Chronic kidney disease, Alzheimer's disease Instructions: ED Chest Pain, Noncardiac Prescriptions: No Action fluoxetine 40 mg capsule 40 mg PO DAILY memantine 10 mg tablet 10 mg PO BID losartan 100 mg tablet 100 mg PO DAILY donepezil [Aricept] 10 mg tablet 10 mg PO DAILY oxcarbazepine 300 mg tablet 300 mg PO BID finasteride 5 MG tablet 5 mg PO DAILY carbidopa-levodopa 25-100 mg Tablet 1 tab PO TIDAC 30 Days Qty: 90 11RF tamsulosin 0.4 mg capsule 0.4 mg PO DAILY doxycycline hyclate 50 mg capsule 50 mg PO DAILY doxepin 75 mg capsule 75 mg PO QHS meclizine 25 mg Tablet 25 mg PO Q8 PRN (Reason: Dizziness) Qty: 20 0RF buspirone 15 mg tablet 15 mg PO BID Qty: 56 4RF Primary Care Provider: Care Physician,No Primary Referrals: Ying Harrington DO [Med Staff - Consulting] - Carlos Lira Chi, MD [Med Staff - Active Staff] - Keep Traci appointment Activity Restrictions/Additional Instructions: Please call Dr. Harrington's office tomorrow. Please let them know that you are in the emergency department today and that his creatinine value is up to 2.56. Print Language: Lithuanian Disposition Disposition: Home, Self Care Discharge Date/Time: 07/17/24 13:17
[2024-07-17 09:41] VITALS: BP 115/75; PULSE 76; RESP 18; O2SAT 94
[2024-07-17 10:00] VITALS: BP 101/70; PULSE 78; RESP 16; O2SAT 95
[2024-07-17 10:01] LABS: Absolute Lymphocyte Count 1.73 X10^3/uL (0.83-4.51); Absolute Neutrophil Count 4.4 X10^3/uL (2.0-7.7); Basophil# 0.05 X10^3/uL; Basophil% 0.7 % (0-1); Eosinophil# 0.25 X10^3/uL; Eosinophils% 3.5 % (0-5); Hematocrit 35.6 % (40-54); Hemoglobin 11.3 g/dL (13.0-16.5); Lymphocyte # 1.73 X10^3/ul (0.83-4.51); Mean Corp Hgb Conc 31.7 g/dL (32-36); Mean Corpuscular Hgb 30.8 pg (27.0-32.0); Mean Platelet Vol. 9.3 fl (6.2-12.0); Monocyte# 0.78 X10^3/uL; Monocyte% 10.8 % (0-10); NRBC Flagged by Analyzer 0 % (0-5); Neutrophil # 4.35 X10^3/uL (2.7-7.7); Neutrophil % 60.2 % (47-70); Platelet Count 253 K/mm3 (150-450); RBC Distribution Width CV 13.9 % (11.6-14.6); RBC Distribution Width SD 49.7 fl (35.1-43.9); Red Blood Count 3.67 M/mm3 (4.6-6.2); White Blood Count 7.2 K/mm3 (4.4-11.0)
[2024-07-17 10:20] LABS: Anion Gap 4 (5-15); BUN 37 mg/dL (7-18); BUN/Creat Ratio 14.5 RATIO (10-20); Chloride 109 mmol/L (98-107); Creatinine, Serum 2.56 mg/dL (0.70-1.30); EST Glomerular Filtration Rate 26 mL/min (>60); Est Glom Filt Rate - Afr Amer 31 mL/min (>60); Estimated Creatinine Clearance 25.77 ml/min; Glucose 113 mg/dL (74-106); Potassium 4.6 mmol/L (3.5-5.1); Sodium Level 140 mmol/L (136-145); Troponin-I HS (w/2H Reflex) 16 pg/mL (3.0-78.0)
[2024-07-17 11:00] VITALS: BP 105/68; PULSE 74; O2SAT 98
[2024-07-17] MEDS: 0.9% Normal Saline (1000mL) 1,000 ML 999 ML IV (11:00)
[2024-07-17 11:58] LABS: Reflex Troponin-HS? (from REC) Y
[2024-07-17 12:00] VITALS: BP 124/84; PULSE 73; O2SAT 96
[2024-07-17 12:06] LABS: Mucous, Urine 0 SEEN /hpf (<or=2+)
[2024-07-17 12:14] LABS: Color, Urine Yellow (Yellow); Glucose, Dipstick Normal (Normal); Ketone-Dipstick Negative (Negative); Leukocyte Esterase-Dipstick 25 /ul (Negative); Nitrite-Dipstick Negative (Negative); Occult Blood-Urine 10 /ul (Negative); Protein-Dipstick 30 mg/dl (Negative); Specific Gravity, Urine 1.015 (1.002-1.030); Urine Bilirubin Dipstick Negative (Negative); Urine Clarity Clear (Clear); Urine Urobilinogen Normal (Normal)
[2024-07-17 12:27] LABS: Troponin-I HS 17 pg/mL (3.0-78.0)
[2024-07-17 12:50] VITALS: BP 124/84; PULSE 73; RESP 18; TEMP 36.6; O2SAT 96
--- NOTE | 2024-07-17 13:05 | ED.RN ---
This Rn spoke to Neda from hospice to update her of patient discharge and pt. vicki
[2024-07-17 14:15] LABS: Squamous Epithelial Cells - UA 0-5 SEEN /hpf (0-5)
[2024-07-17 14:16] LABS: Red Blood Cells-Urine 0-5 SEEN /hpf (0-5); White Blood Cells 0-5 SEEN /hpf (0-5)
[2024-07-17 14:17] LABS: Bacteria RARE /hpf (None Seen)
== END 2024-07-17 13:17 | disposition home or self-care (01) ==
PROVIDERS: Emergency Provider Emergency Medicine; Visit Provider Emergency Medicine
DX: R07.9 Chest pain, unspecified (principal); F31.9 Bipolar disorder, unspecified; G30.9 Alzheimer's disease, unspecified; I25.10 Atherosclerotic heart disease of native coronary artery without angina pectoris; I12.9 Hypertensive chronic kidney disease with stage 1 through stage 4 chronic kidney disease, or unspecified chronic kidney disease; E78.5 Hyperlipidemia, unspecified; Z87.891 Personal history of nicotine dependence; N18.9 Chronic kidney disease, unspecified; Z95.2 Presence of prosthetic heart valve; Z86.73 Personal history of transient ischemic attack (TIA), and cerebral infarction without residual deficits; N40.0 Benign prostatic hyperplasia without lower urinary tract symptoms; Z79.899 Other long term (current) drug therapy; Z90.49 Acquired absence of other specified parts of digestive tract; Z90.5 Acquired absence of kidney; Z95.5 Presence of coronary angioplasty implant and graft; Z98.42 Cataract extraction status, left eye
CPT/HCPCS: 71045; 80048; 81001; 84484; 85025; 93005; 96360; 99285; A4216

== ENCOUNTER → 2024-08-11 | Outpatient (CLI) | payer MEDICARE, OTHER, SELFPAY ==
[2024-08-11 11:57] LABS: Albumin, Serum 3.2 g/dL (3.2-5.0); BUN 29 mg/dL (7-18); BUN/Creat Ratio 13.7 RATIO (10-20); Calcium,Total 9.1 mg/dL (8.5-10.1); Chloride 110 mmol/L (98-107); Creatinine, Serum 2.11 mg/dL (0.70-1.30); EST Glomerular Filtration Rate 32 mL/min (>60); Est Glom Filt Rate - Afr Amer 39 mL/min (>60); Glucose 114 mg/dL (74-106); Phosphorus 3.4 mg/dL (2.5-4.9); Potassium 5.2 mmol/L (3.5-5.1); Sodium Level 138 mmol/L (136-145)
== END | disposition home or self-care (01) ==
LOC: POLAB3 11:17
PROVIDERS: Visit Provider Internal Medicine Nephrology
DX: N18.32 Chronic kidney disease, stage 3b (principal); N17.9 Acute kidney failure, unspecified
CPT/HCPCS: 36415; 80069

== ENCOUNTER → 2024-08-15 | Outpatient (CLI) | payer MEDICARE, OTHER, SELFPAY ==
[2024-08-15 11:03] LABS: Anion Gap 2 (5-15); BUN 34 mg/dL (7-18); BUN/Creat Ratio 14.8 RATIO (10-20); Calcium,Total 9.9 mg/dL (8.5-10.1); Chloride 107 mmol/L (98-107); Creatinine, Serum 2.29 mg/dL (0.70-1.30); EST Glomerular Filtration Rate 29 mL/min (>60); Est Glom Filt Rate - Afr Amer 36 mL/min (>60); Glucose 121 mg/dL (74-106); Potassium 4.3 mmol/L (3.5-5.1); Sodium Level 138 mmol/L (136-145)
== END | disposition home or self-care (01) ==
LOC: LAB 10:15
PROVIDERS: PCP Family Medicine Geriatric Medicine; Referring Provider Internal Medicine Nephrology; Visit Provider Internal Medicine Nephrology
DX: N17.9 Acute kidney failure, unspecified (principal); N18.32 Chronic kidney disease, stage 3b
CPT/HCPCS: 36415; 80048